=== PATIENT | male | born 1930 | race Caucasian/White ===

== ENCOUNTER 2016-05-21 07:07 | Inpatient (IN) | payer OTHER, BC ==
[2016-05-21 07:20] VITALS: BMI 30.2
[2016-05-21] MEDS ORDERED: ALBUTEROL SO4 2.5/IPRATROPIUM 0.5 INH SOL 3 ML VIAL.NEB. NEB ONE ×3 (08:20→09:24)
[2016-05-21] MEDS ORDERED: methylPREDNISolone NA SUCC 125 MG/2 ML VIAL ONE ×2 (08:20→09:24)
[2016-05-21] MEDS ORDERED: NITROGLYCERIN 2% OINTMENT - 1GM PACKET TD ONE (08:29)
--- NOTE | 2016-05-21 08:29 | PDOC ---
History of Present Illness <Mendy Clancy - Last Filed: 05/21/16 11:45> - History of Present Illness Initial Comments: 05/21/16 08:23 86-year-old male with a past medical history of COPD, atrial fibrillation, CAD, hypertension, hyperlipidemia, sick sinus syndrome, prostate cancer, nephrolithiasis, and a prior episode of enterococcal urosepsis and pyelonephritis Patient states that he did have the flu shot this year Patient is complaining of some URI symptoms, congestion, and cough since Friday He states the cough is productive of white sputum During the early a.m. hours he became progressively short of breath, and used his nebulizer He felt lightheaded this morning He felt some increasing wheezing this morning He denies any fevers or chills He states his sputum is white He is complaining of some intermittent chest discomfort, which he states is worse with cough, but sometimes present when he is not coughing He denies any neck jaw or arm radiation He denies any abdominal pain He denies any other complaints at this time <Mitali Martinez - Last Filed: 05/21/16 22:52> - General Chief Complaint: Shortness of Breath Stated Complaint: SOB, LIGHTHEADED Time Seen by Provider: 05/21/16 08:09 Past History <Mendy Clancy - Last Filed: 05/21/16 11:45> - Past Medical History Anemia: No Asthma: No Cancer: Yes (PROSTATE,RADIATION,SEEDS) Cardiac Disorders: Yes (a.fib) CVA: No COPD: Yes CHF: No Dementia: No Diabetes: No GI Disorders: Yes (diverticulosis) Disorders: Yes (NON FUNCTIONING LEFT KIDNEY) HTN: Yes Hypercholesterolemia: Yes (DIET CONTROLLED) Liver Disease: No Seizures: No Thyroid Disease: No Other medical history: gout - Surgical History Abdominal Surgery: Yes (HERNIA-R INGUINAL) Appendectomy: Yes () Cardiac Surgery: Yes (pacemaker-1999,REPLACED 2012) Cholecystectomy: No Lung Surgery: No Neurologic Surgery: No Orthopedic Surgery: Yes (TOTAL L KNEE REPLACEMENT-2001,TOTAL LEFT HIP REPLACEMENT-2003) - Immunization History Immunization Up to Date: Yes - Psycho/Social/Smoking Cessation Hx Anxiety: No Suicidal Ideation: No Smoking Status: Yes Smoking History: Former smoker Have you smoked in the past 12 months: No Number of Cigarettes Smoked Daily: 0 If you are a former smoker, when did you quit?: 20YRS AGO Cigars Per Day: 0 Information on smoking cessation initiated: No Hx Alcohol Use: No Drug/Substance Use Hx: No Substance Use Type: Alcohol Hx Substance Use Treatment: No <Memo Martinezee - Last Filed: 05/21/16 22:52> - Past Medical History Allergies/Adverse Reactions: Allergies Allergy/AdvReac Type Severity Reaction Status Date / Time azithromycin AdvReac Intermediate HEADACHE Verified 05/21/16 07:12 Home Medications: Ambulatory Orders Albuterol Sulfate [Proair Respiclick] 90 mcg IH QID PRN 05/21/16 Allopurinol [Zyloprim -] 100 mg PO DAILY 05/21/16 Ascorbic Acid [Vitamin C] 500 mg PO DAILY 05/21/16 Cholecalciferol (Vitamin D3) [Vitamin D3] 5,000 unit PO DAILY 05/21/16 Docusate Sodium [Colace -] 0 mg PO HS 05/21/16 Iron 325 mg PO DAILY 05/21/16 L.acidoph,Paracasei, B.lactis [Probiotic] 1 each PO DAILY 05/21/16 Losartan Potassium 50 mg PO BID 05/21/16 Methenamine Hippurate [Hiprex [Nf] -] 1 gm PO BID 05/21/16 Metoprolol Tartrate [Lopressor] 50 mg PO TID 05/21/16 Mometasone Furoate [Asmanex 110Mcg -] 1 inh IH DAILY 05/21/16 Pyridoxine HCl [Vitamin B6] 50 mg PO DAILY 05/21/16 Tamsulosin HCl [Flomax] 0.4 mg PO DAILY 05/21/16 Thiamine HCl [Vitamin B1] 100 mg PO DAILY 05/21/16 Triamcinolone Acetonide 80 gm TP PRN 05/21/16 Triamcinolone Acetonide [Nasacort] 10.8 ml NS DAILY 05/21/16 Ubidecarenone [Coq-10] 100 mg PO DAILY 05/21/16 Vitamin E 400 unit PO DAILY 05/21/16 Warfarin Sodium [Coumadin] 4.5 mg PO HS 05/21/16 Review of Systems - Review of Systems Able to Perform ROS?: Yes Comments:: 05/21/16 08:25 12 point review of systems is as per history of present illness and otherwise negative <Mitali Martinez - Last Filed: 05/21/16 22:52> *Physical Exam - Vital Signs Last Vital Signs Temp Pulse Resp BP Pulse Ox 97.8 F 87 20 130/80 98 05/21/16 07:12 05/21/16 07:12 05/21/16 07:12 05/21/16 07:12 05/21/16 07:12 <Guanaco Clancyistyn - Last Filed: 05/21/16 11:45> - Vital Signs Last Vital Signs Temp Pulse Resp BP Pulse Ox 97.8 F 87 20 130/80 98 05/21/16 07:12 05/21/16 07:12 05/21/16 07:12 05/21/16 07:12 05/21/16 07:12 - Physical Exam Comments: 05/21/16 08:25 Physical exam Last Vital Signs Temp Pulse Resp BP Pulse Ox 97.8 F 87 20 130/80 98 05/21/16 07:12 05/21/16 07:12 05/21/16 07:12 05/21/16 07:12 05/21/16 07:12 GENERAL: The patient is awake, alert, and having mild wheezing at rest HEAD: Normal with no signs of trauma. EYES: sclera anicteric, conjunctiva are normal. ENT:Moist mucous membranes. NECK: Normal range of motion, supple . LUNGS: There is a prolonged expiratory phase, with diffuse scattered end expiratory wheezes in all lung nickerson. HEART: Regular rate and rhythm, normal S1 and S2 without murmur, rub or gallop. ABDOMEN: Soft, nontender, normoactive bowel sounds. No guarding, no rebound. No masses appreciated. EXTREMITIES: Normal range of motion, bilateral trace pedal edema is noted NEUROLOGICAL: Cranial nerves II through XII grossly intact. Normal speech, normal gait. PSYCH: Normal mood, normal affect. SKIN: Warm, Dry, normal turgor, no rashes or lesions noted. <Mitali Martinez - Last Filed: 05/21/16 22:52> ED Treatment Course - LABORATORY CBC & Chemistry Diagram: 05/21/16 10:00 05/21/16 08:50 - RADIOLOGY Radiograph Interpretation: 05/21/16 08:48 RAD/CHEST X-RAY PORTABLE* Single view AP portable chest COPD and shortness of breath Comparison studies: June 24, 2015 Cardiomegaly with mild uncoiling aortic arch and no mediastinal widening No infiltrate, mass or effusion with no pneumothorax. Dual lead left axillary atrial and ventricular pacemaker in position Mild degree hyperaeration noted. IMPRESSION: No infiltrate or edema in the lungs-no acute changes noted. Reported By: Taco Escobar MD 05/21/16 0836 <Mendy Clancy - Last Filed: 05/21/16 11:45> - LABORATORY CBC & Chemistry Diagram: 05/21/16 10:00 05/21/16 08:50 - RADIOLOGY Radiology Studies Ordered: Category Date Time Status CHEST X-RAY PORTABLE* [RAD] Stat Radiology 05/21/16 08:19 Ordered <Mitali Martinez - Last Filed: 05/21/16 22:52> Medical Decision Making - Medical Decision Making 05/21/16 11:[address] Enrike Rivero at 11:30, awaiting call back. Dr. Enrike Rivero called back at 11:38. Patient's case was discussed. <Mendy Clancy - Last Filed: 05/21/16 11:45> - Medical Decision Making 05/21/16 08:27 86-year-old male with what initially started as URI symptoms, now has a cough and COPD exacerbation, as well as some chest discomfort Will start with 2 nebs [id number], and steroids, EKG Atrial fibrillation with a ventricular response rate of 86 Left axis deviation -47 Normal AV and IV conduction time Nonspecific ST-T waves When compared with the EKG of 06/21/15 Atrial fibrillation was present on the prior EKG Today's EKG is essentially unchanged from the prior EKG 05/21/16 09:41 Chest x-ray- No infiltrate or edema in the lungs, no acute changes noted Mild degree of hyperinflation 05/21/16 11:28 Laboratory Results - last 24 hr 05/21/16 05/21/16 08:50 10:00 WBC 8.1 RBC 3.92 L Hgb 11.5 L D Hct 34.2 L MCV 87.1 MCHC 33.6 RDW 15.7 Plt Count 133 L MPV 9.4 Sodium 141 Potassium 4.3 Chloride 107 Carbon Dioxide 23 Anion Gap 11 BUN 17 D Creatinine 1.8 H Creat Clearance w eGFR 36.04 Random Glucose 90 Calcium 8.2 L Magnesium 1.7 L Total Bilirubin 0.4 AST 9 L D ALT 14 Alkaline Phosphatase 94 Creatine Kinase 38 L Troponin I < 0.02 B-Natriuretic Peptide 3835.54 H Total Protein 6.4 Albumin 3.7 Most likely COPD exacerbation with bronchitis, and some degree of failure with BNP of close to 4000 05/21/16 11:[address] Mckenna-Will admit/place in observation Patient feeling a little better with nebs and steroids Impression-COPD exacerbation, CHF Will hold on antibiotics at this time since no elevated white count and no infiltrate on chest x-ray and sputum is white <Mitali Martinez - Last Filed: 05/21/16 22:52> *DC/Admit/Observation/Transfer <Mendy Clancy - Last Filed: 05/21/16 11:45> - Discharge Dispostion Admit: Yes <Mitali Martinez - Last Filed: 05/21/16 22:52> Diagnosis at time of Disposition: COPD exacerbation, CHF (congestive heart failure), A-fib - Referrals
[2016-05-21 10:13] LABS: ALBUMIN 3.7 g/dl (3.4-5.0); ALK PHOS 94 U/L (45-117); ANION GAP 11 (8-16); BILIRUBIN,TOTAL 0.4 mg/dL (0.2-1.0); CALCIUM 8.2 mg/dL (8.5-10.1); CO2 23 mmol/L (21-32); CREATININE 1.8 mg/dL (0.7-1.3); GLUCOSE,RANDOM 90 mg/dL (74-106); MAGNESIUM 1.7 mg/dL (1.8-2.4); SGOT/AST 9 U/L (15-37); SGPT/ALT 14 U/L (12-78); TOT PROT 6.4 g/dl (6.4-8.2)
[2016-05-21 10:15] LABS: TROPONIN I < 0.02 ng/ml (0.00-0.05)
[2016-05-21 10:27] LABS: MCH 29.3 pg (25.7-33.7); MCHC 33.6 g/dl (32.0-35.9); MEAN CELL VOLUME 87.1 fl (80-96); MEAN PLT VOLUME 9.4 fl (7.5-11.1); PLATELET COUNT 133 K/MM3 (134-434); RDW 15.7 % (11.9-15.9); WHITE BLOOD COUNT 8.1 K/mm3 (4.0-10.0)
[2016-05-21 11:17] LABS: INR 3.74 (0.82-1.09); PROTHROMBIN TIME (PATIENT) 42.3 SEC (9.98-11.88)
[2016-05-21] MEDS ORDERED: FUROSEMIDE 40 MG/4 ML INJECTABLE VIAL IVPUSH ONE (11:29)
[2016-05-21] MEDS ORDERED: FUROSEMIDE 40 MG/4 ML INJECTABLE VIAL ONE (11:55)
--- NOTE | 2016-05-21 13:25 | EKG ---
Test Reason : Blood Pressure : / mmHG Vent. Rate : 086 BPM Atrial Rate : 241 BPM P-R Int : 000 ms QRS Dur : 068 ms QT Int : 344 ms P-R-T Axes : 000 -47 -18 degrees QTc Int : 411 ms ATRIAL FIBRILLATION LEFT AXIS DEVIATION LOW VOLTAGE QRS ABNORMAL ECG WHEN COMPARED WITH ECG OF 21-JUN-2015 15:12, NO SIGNIFICANT CHANGE WAS FOUND Confirmed by OTTO SHIELDS MD ([id number]) on 05/21/2016 1:25:01 PM Referred By: Confirmed By:OTTO SHIELDS MD
--- NOTE | 2016-05-21 17:40 | HP ---
Admitting History and Physical - Primary Care Physician PCP: Enrike Rivero - Admission Chief Complaint: cough SOB History of Present Illness: 86-year-old male with a past medical history of COPD, atrial fibrillation, CAD, hypertension, hyperlipidemia, sick sinus syndrome, prostate cancer, nephrolithiasis, and a prior episode of enterococcal urosepsis and pyelonephritis Patient states that he did have the flu shot this year Patient is complaining of some URI symptoms, congestion, and cough since Friday He states the cough is productive of white sputum During the early a.m. hours he became progressively short of breath, and used his nebulizer but not better; then developed some chest tightness and came to ER ; received nebs, IV steroids and IV lasix and felt better. He denies any fevers or chills He is complaining of some intermittent chest discomfort, which he states is worse with cough, but sometimes present when he is not coughing He denies any neck jaw or arm radiation, abdominal pain or any other complaints at this time History Source: Patient, Medical Record Limitations to Obtaining History: No Limitations - Past Medical History Cardiovascular: Yes: AFIB, CAD, HTN, Hyperlipdemia, Other (SSS with PPM) Renal/: Yes: BPH, Cancer (prostate), Renal Calculi, Other (urinary retention) Heme/Onc: Yes: Cancer (prostate) - Past Surgical History Past Surgical History: Yes: Appendectomy, Hernia Repair, Joint Replacement - Smoking History Smoking history: Former smoker Have you smoked in the past 12 months: No Aproximately how many cigarettes per day: 0 If you are a former smoker, when did you quit?: 20YRS AGO - Alcohol/Substance Use Hx Alcohol Use: No History of Substance Use: reports: None - Social History Usual Living Arrangement: Yes: Alone ADL: Independent History of Recent Travel: No Home Medications - Allergies Allergies/Adverse Reactions: Allergies Allergy/AdvReac Type Severity Reaction Status Date / Time azithromycin AdvReac Intermediate HEADACHE Verified 05/21/16 07:12 - Home Medications Home Medications: Ambulatory Orders Albuterol Sulfate [Proair Respiclick] 90 mcg IH QID PRN 05/21/16 Allopurinol [Zyloprim -] 100 mg PO DAILY 05/21/16 Ascorbic Acid [Vitamin C] 500 mg PO DAILY 05/21/16 Cholecalciferol (Vitamin D3) [Vitamin D3] 5,000 unit PO DAILY 05/21/16 Docusate Sodium [Colace -] 0 mg PO HS 05/21/16 Iron 325 mg PO DAILY 05/21/16 L.acidoph,Paracasei, B.lactis [Probiotic] 1 each PO DAILY 05/21/16 Losartan Potassium 50 mg PO BID 05/21/16 Methenamine Hippurate [Hiprex [Nf] -] 1 gm PO BID 05/21/16 Metoprolol Tartrate [Lopressor] 50 mg PO TID 05/21/16 Mometasone Furoate [Asmanex 110Mcg -] 1 inh IH DAILY 05/21/16 Pyridoxine HCl [Vitamin B6] 50 mg PO DAILY 05/21/16 Tamsulosin HCl [Flomax] 0.4 mg PO DAILY 05/21/16 Thiamine HCl [Vitamin B1] 100 mg PO DAILY 05/21/16 Triamcinolone Acetonide 80 gm TP PRN 05/21/16 Triamcinolone Acetonide [Nasacort] 10.8 ml NS DAILY 05/21/16 Ubidecarenone [Coq-10] 100 mg PO DAILY 05/21/16 Vitamin E 400 unit PO DAILY 05/21/16 Warfarin Sodium [Coumadin] 4.5 mg PO HS 05/21/16 Family Disease History - Family Disease History Family History: Unremarkable Review of Systems - Review of Systems Constitutional: denies: Chills, Fever, Lethargy Eyes: denies: Blurred Vision, Double Vision HENT: denies: Ear Pain, Nasal Congestion Neck: denies: Stiffness, Tenderness Cardiovascular: reports: Shortness of Breath. denies: Chest Pain Respiratory: reports: Cough, Exercise Intolerance, Orthopnea, PND, SOB, SOB on Exertion, Wheezing. denies: Hemoptysis Gastrointestinal: denies: Abdominal Pain, Bloating, Constipation, Diarrhea, Dysphagia, Rectal Bleeding, Vomiting, Vomiting Blood Genitourinary: reports: Other (self cath q 3days). denies: Burning, Dysuria, Flank Pain, Hematuria Musculoskeletal: denies: Back Pain, Extremity Pain, Joint Pain, Joint Swelling, Muscle Weakness Integumentary: denies: Bruising, Erythema, Rash Neurological: reports: Unsteady Gait, Weakness (general). denies: Change in LOC , Change in Speech, Confusion, Dizziness, Headache, Seizure, Syncope, Tremors Hematology/Lymphatic: denies: Easily Bruised, Excessive Bleeding, Swollen Glands Psychiatric: denies: Altered Sleep Pattern, Anxiety, Depression, Panic, Paranoia , Suicidal Physical Examination Vital Signs: Vital Signs Temperature 97.9 F 05/21/16 13:30 Pulse Rate 82 05/21/16 13:30 Respiratory Rate 18 05/21/16 13:30 Blood Pressure 123/92 05/21/16 13:30 O2 Sat by Pulse Oximetry (%) 98 05/21/16 13:30 Constitutional: Yes: No Distress, Calm Eyes: Yes: Conjunctiva Clear HENT: Yes: Atraumatic Neck: Yes: Supple Cardiovascular: No: Regular Rate and Rhythm Respiratory: Yes: Rales (bilateral), Wheezes (bilateral expiratory) Gastrointestinal: Yes: Soft. No: Distention, Tenderness Renal/: No: CVA Tenderness - Left, CVA Tenderness - Right, Hematuria Musculoskeletal: No: Joint Stiffness, Joint Swelling Extremities: No: Calf Tenderness, Cold, Cool, Cyanosis Edema: No Peripheral Pulses WNL: Yes Integumentary: No: Bruising, Erythema, Venous Stasis Changes Neurological: Yes: WNL, Alert, Oriented ...Motor Strength: WNL Psychiatric: Yes: WNL, Alert, Oriented. No: Agitated, Suicidal Ideation Imaging - Results Chest X-ray: Report Reviewed Other: Report Reviewed Assessment/Plan 86-year-old male with a past medical history of COPD, atrial fibrillation, CAD, hypertension, hyperlipidemia, sick sinus syndrome, prostate cancer, nephrolithiasis, and a prior episode of enterococcal urosepsis and pyelonephritis Patient is complaining of some URI symptoms, congestion, and cough with white sputum since Friday During the early a.m. hours he became progressively short of breath, and used his nebulizer then came to ER CXR negative; INR > 3, high BNP admitted with URI acute bronchitis and acute on chronic COPD exac andf CHF exac admit as INPT IV steroids, nebs, IV ATB, IV lasix cardio and pulm evals f/u labs coumadin per INR f/u CE will check when last echo was done falls decubs DVT aspiration PFX prognosis guarded d/w pt and staff t time 75 min
[2016-05-21] MEDS ORDERED: ACETAMINOPHEN 325 MG TABLET (FP) PO PRN (19:35)
[2016-05-21] MEDS ORDERED: ALBUTEROL SO4 6.7 GM HFA INHALER IH PRN (20:53)
[2016-05-21] MEDS ORDERED: TRIAMCINOLONE ACET 0.1% CREAM 15 GM TUBE TP SCH (21:00)
[2016-05-21] MEDS: methylPREDNISolone NA SUCC 40 MG/1 ML VIAL IVPB SCH (21:51)
[2016-05-21] MEDS: MAGNESIUM OXIDE 400 MG TABLET (FP) PO SCH (21:51)
[2016-05-21] MEDS: METOPROLOL TARTRATE 50 MG TABLET (FP) PO SCH (21:51)
[2016-05-21] MEDS: LOSARTAN POTASSIUM 50 MG TABLET (FP) PO SCH (21:51)
[2016-05-21] MEDS: DOCUSATE SODIUM 100 MG CAPSULE (FP) PO SCH (21:51)
[2016-05-21] MEDS ORDERED: PATIENT'S OWN MEDICATION (NON-FORMULARY) (Methenamine Hippurate 1 GM) PO SCH (22:00)
[2016-05-21] MEDS ORDERED: PATIENT'S OWN MEDICATION (NON-FORMULARY) (Warfarin Sodium [Coumadin] 4 MG) PO SCH (22:00)
[2016-05-22] MEDS: methylPREDNISolone NA SUCC 40 MG/1 ML VIAL IVPB SCH ×3 (01:49→18:02)
[2016-05-22] MEDS ORDERED: PT OWN MED DRAWER 7, Y5N ONE (05:31)
[2016-05-22] MEDS: FUROSEMIDE 40 MG/4 ML INJECTABLE VIAL IVPUSH SCH ×2 (06:03→14:20)
[2016-05-22] MEDS: METOPROLOL TARTRATE 50 MG TABLET (FP) PO SCH ×3 (06:03→21:21)
[2016-05-22 07:28] LABS: BASOPHIL 0.3 % (0-2.0); EOSINOPHIL 0.1 % (0-4.5); MCH 28.9 pg (25.7-33.7); MCHC 33.5 g/dl (32.0-35.9); MEAN CELL VOLUME 86.2 fl (80-96); MEAN PLT VOLUME 8.8 fl (7.5-11.1); NEUTROPHILS 83.5 % (42.8-82.8); PLATELET COUNT 144 K/MM3 (134-434); RDW 15.3 % (11.9-15.9); WHITE BLOOD COUNT 9.6 K/mm3 (4.0-10.0)
[2016-05-22 08:23] LABS: INR 2.8 (0.82-1.09); PROTHROMBIN TIME (PATIENT) 31.4 SEC (9.98-11.88)
[2016-05-22 08:25] LABS: MAGNESIUM 1.8 mg/dL (1.8-2.4); TROPONIN I < 0.02 ng/ml (0.00-0.05)
[2016-05-22 08:37] LABS: ALBUMIN 3.7 g/dl (3.4-5.0); BILIRUBIN,TOTAL 0.3 mg/dL (0.2-1.0); CALCIUM 8.7 mg/dL (8.5-10.1); CREATININE 1.8 mg/dL (0.7-1.3); THYROID STIMULATING HORMONE 1.3 uIU/ml (0.358-3.74); TOT PROT 6.9 g/dl (6.4-8.2)
[2016-05-22] MEDS: MAGNESIUM OXIDE 400 MG TABLET (FP) PO SCH ×2 (09:50→21:21)
[2016-05-22] MEDS: CEFTRIAXONE 50 ML IVPB SCH (09:50)
[2016-05-22] MEDS: TAMSULOSIN HCL 0.4 MG CAP.ER.24H (FP) PO SCH (09:50)
[2016-05-22] MEDS: THIAMINE HCL 100 MG TABLET (FP) PO SCH (09:50)
[2016-05-22] MEDS: LOSARTAN POTASSIUM 50 MG TABLET (FP) PO SCH ×2 (09:50→21:21)
[2016-05-22] MEDS: ASCORBIC ACID 500 MG TABLET (FP) PO SCH (09:51)
[2016-05-22] MEDS: ALLOPURINOL 100 MG TABLET (FP) PO SCH (09:51)
[2016-05-22] MEDS: CHOLECALCIFEROL (VITAMIN D3) 1,000 UNIT TABLET (FP) PO SCH (09:51)
[2016-05-22] MEDS: PYRIDOXINE HCL (B-6) 50 MG TABLET (FP) PO SCH (09:51)
[2016-05-22] MEDS: MOMETASONE FUROATE 110 MCG/IH INHALER IH SCH (09:52)
[2016-05-22] MEDS ORDERED: PATIENT'S OWN MEDICATION (NON-FORMULARY) (Triamcinolone Acetonide [Nasacort] 10.8 ML) NS SCH (10:00)
--- NOTE | 2016-05-22 10:33 | CON.PULM ---
Consult Consult Specialty:: PULMONARY Referred by:: JUANA Reason for Consultation:: SOB/WHEEZE - History of Present Illness Chief Complaint: SOB/WHEEZE History of Present Illness: 86-year-old male with a past medical history of COPD, atrial fibrillation, CAD, hypertension, hyperlipidemia, sick sinus syndrome, prostate cancer, nephrolithiasis, and a prior episode of enterococcal urosepsis and pyelonephritis Patient states that he did have the flu shot this year. Patient is complaining of some URI symptoms, congestion, and cough since Friday He states the cough is productive of white sputum During the early a.m. hours he became progressively short of breath, and used his nebulizer He felt lightheaded this morning He felt some increasing wheezing this morning He denies any fevers or chills He states his sputum is white He is complaining of some intermittent chest discomfort, which he states is worse with cough, but sometimes present when he is not coughing He denies any neck jaw or arm radiation He denies any abdominal pain He denies any other complaints at this time. - Past Medical History Cardio/Vascular: Yes: AFIB, CAD, HTN, Hyperlipdemia, Other (SSS with PPM) Renal/: Yes: BPH, Cancer (prostate), Renal Calculi, Other (urinary retention) - Past Surgical History Past Surgical History: Yes: Appendectomy, Hernia Repair, Joint Replacement - Alcohol/Substance Use Hx Alcohol Use: No History of Substance Use: reports: None - Smoking History Smoking history: Former smoker Have you smoked in the past 12 months: No Aproximately how many cigarettes per day: 0 If you are a former smoker, when did you quit?: 20YRS AGO - Social History ADL: Independent History of Recent Travel: No Home Medications - Allergies Allergies/Adverse Reactions: Allergies Allergy/AdvReac Type Severity Reaction Status Date / Time azithromycin AdvReac Intermediate HEADACHE Verified 05/21/16 07:12 - Home Medications Home Medications: Ambulatory Orders Albuterol Sulfate [Proair Respiclick] 90 mcg IH QID PRN 05/21/16 Allopurinol [Zyloprim -] 100 mg PO DAILY 05/21/16 Ascorbic Acid [Vitamin C] 500 mg PO DAILY 05/21/16 Cholecalciferol (Vitamin D3) [Vitamin D3] 5,000 unit PO DAILY 05/21/16 Docusate Sodium [Colace -] 0 mg PO HS 05/21/16 Iron 325 mg PO DAILY 05/21/16 L.acidoph,Paracasei, B.lactis [Probiotic] 1 each PO DAILY 05/21/16 Losartan Potassium 50 mg PO BID 05/21/16 Methenamine Hippurate [Hiprex [Nf] -] 1 gm PO BID 05/21/16 Metoprolol Tartrate [Lopressor] 50 mg PO TID 05/21/16 Mometasone Furoate [Asmanex 110Mcg -] 1 inh IH DAILY 05/21/16 Pyridoxine HCl [Vitamin B6] 50 mg PO DAILY 05/21/16 Tamsulosin HCl [Flomax] 0.4 mg PO DAILY 05/21/16 Thiamine HCl [Vitamin B1] 100 mg PO DAILY 05/21/16 Triamcinolone Acetonide 80 gm TP PRN 05/21/16 Triamcinolone Acetonide [Nasacort] 10.8 ml NS DAILY 05/21/16 Ubidecarenone [Coq-10] 100 mg PO DAILY 05/21/16 Vitamin E 400 unit PO DAILY 05/21/16 Warfarin Sodium [Coumadin] 4.5 mg PO HS 05/21/16 Physical Exam Vital Sings: Vital Signs Temperature 97.4 F L 05/22/16 05:56 Pulse Rate 86 05/22/16 05:56 Respiratory Rate 18 05/22/16 06:26 Blood Pressure 134/98 05/22/16 05:56 O2 Sat by Pulse Oximetry (%) 98 05/22/16 06:26 Labs: CBC, BMP 05/22/16 06:00 05/22/16 06:35
--- NOTE | 2016-05-22 10:39 | CON.PULM ---
Consult Consult Specialty:: PULMONARY Referred by:: JUANA Reason for Consultation:: SOB - History of Present Illness Chief Complaint: SOB History of Present Illness: 86-year-old male with a past medical history of COPD, atrial fibrillation, CAD, hypertension, hyperlipidemia, sick sinus syndrome, prostate cancer, nephrolithiasis, and a prior episode of enterococcal urosepsis and pyelonephritis Patient states that he did have the flu shot this year. Patient is complaining of some URI symptoms, congestion, and cough since Friday He states the cough is productive of white sputum During the early a.m. hours he became progressively short of breath, and used his nebulizer He felt lightheaded this morning He felt some increasing wheezing this morning He denies any fevers or chills He states his sputum is white He is complaining of some intermittent chest discomfort, which he states is worse with cough, but sometimes present when he is not coughing He denies any neck jaw or arm radiation He denies any abdominal pain He denies any other complaints at this time. - History Source History Provided By: Patient, Medical Record Limitations to Obtaining History: No Limitations - Past Medical History [employer]: No: CVA Cardio/Vascular: Yes: AFIB, CAD, HTN, Hyperlipdemia, Other (SSS with PPM) Renal/: Yes: BPH, Cancer (prostate), Renal Calculi, Other (urinary retention) - Past Surgical History Past Surgical History: Yes: Appendectomy, Hernia Repair, Joint Replacement - Alcohol/Substance Use Hx Alcohol Use: No History of Substance Use: reports: None - Smoking History Smoking history: Former smoker Have you smoked in the past 12 months: No Aproximately how many cigarettes per day: 0 If you are a former smoker, when did you quit?: 20YRS AGO - Social History ADL: Independent History of Recent Travel: No Home Medications - Allergies Allergies/Adverse Reactions: Allergies Allergy/AdvReac Type Severity Reaction Status Date / Time azithromycin AdvReac Intermediate HEADACHE Verified 05/21/16 07:12 - Home Medications Home Medications: Ambulatory Orders Albuterol Sulfate [Proair Respiclick] 90 mcg IH QID PRN 05/21/16 Allopurinol [Zyloprim -] 100 mg PO DAILY 05/21/16 Ascorbic Acid [Vitamin C] 500 mg PO DAILY 05/21/16 Cholecalciferol (Vitamin D3) [Vitamin D3] 5,000 unit PO DAILY 05/21/16 Docusate Sodium [Colace -] 0 mg PO HS 05/21/16 Iron 325 mg PO DAILY 05/21/16 L.acidoph,Paracasei, B.lactis [Probiotic] 1 each PO DAILY 05/21/16 Losartan Potassium 50 mg PO BID 05/21/16 Methenamine Hippurate [Hiprex [Nf] -] 1 gm PO BID 05/21/16 Metoprolol Tartrate [Lopressor] 50 mg PO TID 05/21/16 Mometasone Furoate [Asmanex 110Mcg -] 1 inh IH DAILY 05/21/16 Pyridoxine HCl [Vitamin B6] 50 mg PO DAILY 05/21/16 Tamsulosin HCl [Flomax] 0.4 mg PO DAILY 05/21/16 Thiamine HCl [Vitamin B1] 100 mg PO DAILY 05/21/16 Triamcinolone Acetonide 80 gm TP PRN 05/21/16 Triamcinolone Acetonide [Nasacort] 10.8 ml NS DAILY 05/21/16 Ubidecarenone [Coq-10] 100 mg PO DAILY 05/21/16 Vitamin E 400 unit PO DAILY 05/21/16 Warfarin Sodium [Coumadin] 4.5 mg PO HS 05/21/16 Family Disease History - Family Disease History Family History: Unremarkable Review of Systems - Review of Systems Cardiovascular: denies: Chest Pain Respiratory: reports: Cough, Exercise Intolerance, Orthopnea, SOB on Exertion, Wheezing. denies: Hemoptysis Gastrointestinal: reports: No Symptoms Genitourinary: reports: No Symptoms Physical Exam Vital Sings: Vital Signs Temperature 97.4 F L 05/22/16 05:56 Pulse Rate 86 05/22/16 05:56 Respiratory Rate 18 05/22/16 06:26 Blood Pressure 134/98 05/22/16 05:56 O2 Sat by Pulse Oximetry (%) 98 05/22/16 06:26 Constitutional: Yes: Calm Eyes: Yes: EOM Intact HENT: Yes: Normocephalic Neck: Yes: Trachea Midline Cardiovascular: Yes: S1, S2 Respiratory: Yes: CTA Bilaterally Gastrointestinal: Yes: Normal Bowel Sounds, Abdomen, Obese Edema: Yes Edema: LLE: Trace, RLE: Trace Neurological: Yes: Alert Labs: CBC, BMP 05/22/16 06:00 05/22/16 06:35 REST REVIEWED Imaging - Results Chest X-ray: Image Reviewed EKG: Report Reviewed Problem List - Problems (1) A-fib Code(s): I48.91 - UNSPECIFIED ATRIAL FIBRILLATION Qualifiers: (2) CHF (congestive heart failure) Code(s): I50.9 - HEART FAILURE, UNSPECIFIED (3) COPD exacerbation Code(s): J44.1 - CHRONIC OBSTRUCTIVE PULMONARY DISEASE W (ACUTE) EXACERBATION (4) Chronic kidney disease Code(s): N18.9 - CHRONIC KIDNEY DISEASE, UNSPECIFIED Qualifiers: Chronic kidney disease stage: stage 2 (mild) Qualified Code(s): N18.2 - Chronic kidney disease, stage 2 (mild) (5) Diastolic CHF, chronic Code(s): I50.32 - CHRONIC DIASTOLIC (CONGESTIVE) HEART FAILURE Assessment/Plan WOULD FAVOR A/E CHF OVER COPD MULTIPLE MEDICAL PROBLEMS LISTED AGREE WITH O2 SUPPLEMENTATION BRONCHODILATORS DE-ESCALATE STEROIDS CONTINUE DIURETICS/ANTICOAGULATION/ARB/DAILY WEIGHTS WILL FOLLOW Josse GARAY MD
--- NOTE | 2016-05-22 11:16 | PN ---
Progress Note, Physician Chief Complaint: OOB to chair less SOB less cough - Current Medication List Current Medications: Active Medications Acetaminophen (Tylenol -) 650 mg PO Q6H PRN PRN Reason: PAIN Allopurinol (Zyloprim -) 100 mg PO DAILY [facility] Last Admin: 05/22/16 09:51 Dose: 100 mg Ascorbic Acid (Vitamin C -) 500 mg PO DAILY [facility] Last Admin: 05/22/16 09:51 Dose: 500 mg Cholecalciferol (Vitamin D3 -) 5,000 unit PO DAILY [facility] Last Admin: 05/22/16 09:51 Dose: 5,000 unit Docusate Sodium (Colace -) 100 mg PO HS [facility] Last Admin: 05/21/16 21:51 Dose: 100 mg Furosemide (Lasix Injection -) 40 mg IVPUSH BID@0600,1400 [facility] Last Admin: 05/22/16 06:03 Dose: 40 mg Ceftriaxone Sodium (Rocephin 1gm Ivpb (Pre-Docked)) 50 mls @ 100 mls/hr IVPB DAILY [facility] Last Admin: 05/22/16 09:50 Dose: 100 mls/hr Losartan Potassium (Cozaar -) 50 mg PO BID [facility] Last Admin: 05/22/16 09:50 Dose: 50 mg Magnesium Oxide (Mag-Ox -) 400 mg PO BID [facility] Last Admin: 05/22/16 09:50 Dose: 400 mg Methylprednisolone Sodium Succinate (Solu-Medrol -) 40 mg IVPB Q8H-IV [facility] Last Admin: 05/22/16 09:51 Dose: 40 mg Metoprolol Tartrate (Lopressor -) 50 mg PO TID [facility] Last Admin: 05/22/16 06:03 Dose: 50 mg Mometasone Furoate (Asmanex 110mcg -) 1 puff IH DAILY [facility] Last Admin: 05/22/16 09:52 Dose: 1 puff Non-Formulary Medication (Albuterol Sulfate [Proair Respiclick]) 90 mcg IH QID PRN PRN Reason: SHORTNESS OF BREATH Non-Formulary Medication (L.Acidoph,Paracasei, B.Lactis [Probiotic]) 1 each PO DAILY [facility] Non-Formulary Medication (Methenamine Hippurate) 1 gm PO BID [facility] Non-Formulary Medication (Triamcinolone Acetonide [Nasacort]) 10.8 ml NS DAILY [facility] Pyridoxine HCl (Vitamin B6 -) 50 mg PO DAILY [facility] Last Admin: 05/22/16 09:51 Dose: 50 mg Tamsulosin HCl (Flomax -) 0.4 mg PO DAILY@0830 [facility] Last Admin: 05/22/16 09:50 Dose: 0.4 mg Thiamine HCl (Vitamin B1 -) 100 mg PO DAILY [facility] Last Admin: 05/22/16 09:50 Dose: 100 mg Triamcinolone Acetonide (Aristocort 0.1% Cream -) 0 applic TP PRN [facility] Warfarin Sodium (Coumadin -) 4 mg PO DAILY@1800 [facility] - Objective Vital Signs: Vital Signs Temperature 97.4 F L 05/22/16 05:56 Pulse Rate 86 05/22/16 05:56 Respiratory Rate 18 05/22/16 06:26 Blood Pressure 134/98 05/22/16 05:56 O2 Sat by Pulse Oximetry (%) 98 05/22/16 06:26 Constitutional: Yes: No Distress, Calm Eyes: Yes: Conjunctiva Clear HENT: Yes: Atraumatic Neck: Yes: Supple Cardiovascular: No: Regular Rate and Rhythm Respiratory: Yes: Diminished, Wheezes (less) Gastrointestinal: Yes: Soft. No: Distention, Tenderness Genitourinary: No: CVA Tenderness - Left, CVA Tenderness - Right Musculoskeletal: No: Joint Stiffness, Joint Swelling Extremities: No: Cold, Cool Edema: No Integumentary: Yes: Venous Stasis Changes. No: Rash Neurological: Yes: WNL, Alert, Oriented ...Motor Strength: WNL Psychiatric: Yes: WNL, Alert, Oriented. No: Agitated, Suicidal Ideation Labs: CBC, BMP 05/22/16 06:00 05/22/16 06:35 INR, PTT INR 2.80 (0.82-1.09) H 05/22/16 06:35 - ....Imaging Other: Report Reviewed Assessment/Plan 86-year-old male with a past medical history of COPD, atrial fibrillation, CAD, hypertension, hyperlipidemia, sick sinus syndrome, prostate cancer, nephrolithiasis, and a prior episode of enterococcal urosepsis and pyelonephritis admitted with acute URI acute bronchitis and acute on chronic COPD exac andf CHF exac admit as INPT IV steroids, nebs, IV ATB, IV lasix cardio and pulm evals f/u labs coumadin per INR f/u CE will check when last echo was done falls decubs DVT aspiration PFX prognosis guarded d/w pt and staff t time 35 min
[2016-05-22] MEDS: WARFARIN NA 2 MG TABLET (UD) PO SCH (21:21)
[2016-05-22] MEDS: DOCUSATE SODIUM 100 MG CAPSULE (FP) PO SCH (21:21)
[2016-05-23] MEDS: methylPREDNISolone NA SUCC 40 MG/1 ML VIAL IVPB SCH ×3 (01:27→21:53)
[2016-05-23] MEDS: FUROSEMIDE 40 MG/4 ML INJECTABLE VIAL IVPUSH SCH (05:51)
[2016-05-23] MEDS: METOPROLOL TARTRATE 50 MG TABLET (FP) PO SCH ×3 (05:51→21:53)
[2016-05-23 08:25] LABS: INR 2.03 (0.82-1.09); PROTHROMBIN TIME (PATIENT) 22.6 SEC (9.98-11.88)
[2016-05-23 08:30] LABS: CALCIUM 9.6 mg/dL (8.5-10.1)
[2016-05-23] MEDS ORDERED: PT OWN MED DRAWER 7, Y5N ONE (09:19)
[2016-05-23] MEDS: MOMETASONE FUROATE 110 MCG/IH INHALER IH SCH (09:33)
[2016-05-23] MEDS: CEFTRIAXONE 50 ML IVPB SCH (09:33)
[2016-05-23] MEDS: TAMSULOSIN HCL 0.4 MG CAP.ER.24H (FP) PO SCH (09:33)
[2016-05-23] MEDS: PYRIDOXINE HCL (B-6) 50 MG TABLET (FP) PO SCH (09:35)
[2016-05-23] MEDS: LOSARTAN POTASSIUM 50 MG TABLET (FP) PO SCH ×2 (09:36→21:53)
[2016-05-23] MEDS: CHOLECALCIFEROL (VITAMIN D3) 1,000 UNIT TABLET (FP) PO SCH (09:36)
[2016-05-23] MEDS: ALLOPURINOL 100 MG TABLET (FP) PO SCH (09:36)
[2016-05-23] MEDS: MAGNESIUM OXIDE 400 MG TABLET (FP) PO SCH ×2 (09:37→21:53)
[2016-05-23] MEDS: ASCORBIC ACID 500 MG TABLET (FP) PO SCH (09:37)
[2016-05-23] MEDS: THIAMINE HCL 100 MG TABLET (FP) PO SCH (09:37)
--- NOTE | 2016-05-23 11:25 | PN ---
Progress Note (short form) - Note Progress Note: PULMONARY Breathing improving. Mild nonproductive cough and says wheezing has resolved. Leg swelling decreasing with lasix. Last Vital Signs Temp Pulse Resp BP Pulse Ox 97.3 F L 86 18 137/81 95 05/23/16 06:00 05/23/16 06:00 05/23/16 06:00 05/23/16 06:00 05/22/16 18:09 Gen: NAD in chair Heart: RRR Lung: scattered rhonchi Abd: soft, nontender Ext: trace distal edema CBC, BMP 05/22/16 06:00 05/23/16 06:50 Active Medications Acetaminophen (Tylenol -) 650 mg PO Q6H PRN PRN Reason: PAIN Allopurinol (Zyloprim -) 100 mg PO DAILY [facility] Last Admin: 05/23/16 09:36 Dose: 100 mg Ascorbic Acid (Vitamin C -) 500 mg PO DAILY [facility] Last Admin: 05/23/16 09:37 Dose: 500 mg Cholecalciferol (Vitamin D3 -) 5,000 unit PO DAILY [facility] Last Admin: 05/23/16 09:36 Dose: 5,000 unit Docusate Sodium (Colace -) 100 mg PO HS [facility] Last Admin: 05/22/16 21:21 Dose: 100 mg Furosemide (Lasix Injection -) 40 mg IVPUSH BID@0600,1400 [facility] Last Admin: 05/23/16 05:51 Dose: 40 mg Ceftriaxone Sodium (Rocephin 1gm Ivpb (Pre-Docked)) 50 mls @ 100 mls/hr IVPB DAILY [facility] Last Admin: 05/23/16 09:33 Dose: 100 mls/hr Losartan Potassium (Cozaar -) 50 mg PO BID [facility] Last Admin: 05/23/16 09:36 Dose: 50 mg Magnesium Oxide (Mag-Ox -) 400 mg PO BID [facility] Last Admin: 05/23/16 09:37 Dose: 400 mg Methylprednisolone Sodium Succinate (Solu-Medrol -) 40 mg IVPB Q8H-IV [facility] Last Admin: 05/23/16 09:33 Dose: 40 mg Metoprolol Tartrate (Lopressor -) 50 mg PO TID [facility] Last Admin: 05/23/16 05:51 Dose: 50 mg Mometasone Furoate (Asmanex 110mcg -) 1 puff IH DAILY [facility] Last Admin: 05/23/16 09:33 Dose: 1 puff Non-Formulary Medication (Albuterol Sulfate [Proair Respiclick]) 90 mcg IH QID PRN PRN Reason: SHORTNESS OF BREATH Non-Formulary Medication (L.Acidoph,Paracasei, B.Lactis [Probiotic]) 1 each PO DAILY [facility] Non-Formulary Medication (Methenamine Hippurate) 1 gm PO BID [facility] Non-Formulary Medication (Triamcinolone Acetonide [Nasacort]) 10.8 ml NS DAILY [facility] Pyridoxine HCl (Vitamin B6 -) 50 mg PO DAILY [facility] Last Admin: 05/23/16 09:35 Dose: 50 mg Tamsulosin HCl (Flomax -) 0.4 mg PO DAILY@0830 [facility] Last Admin: 05/23/16 09:33 Dose: 0.4 mg Thiamine HCl (Vitamin B1 -) 100 mg PO DAILY [facility] Last Admin: 05/23/16 09:37 Dose: 100 mg Triamcinolone Acetonide (Aristocort 0.1% Cream -) 0 applic TP PRN [facility] Warfarin Sodium (Coumadin -) 4 mg PO DAILY@1800 [facility] Last Admin: 05/22/16 21:21 Dose: 4 mg A/P URI r/o COPD Exacerbation vs CHF Pulmonary HTN Atrial Fibrillation Acute on Chronic Renal Failure - will decrease medrol to q12h - inhaled bronchodilators - will decrease lasix to daily dosing as Cr rising - o2 as needed - obtain echocardiogram - rate controlled - continue anticoagulation
--- NOTE | 2016-05-23 12:39 | CON.CARD ---
Consult Consult Specialty:: Cardiology Referred by:: Dr. Rivero Reason for Consultation:: Cardiac evaluation - History of Present Illness Chief Complaint: Shortness of breath History of Present Illness: Patient is an 86 year old male well known to our service with underlying history of non-obstructive CAD, S/P PCI, angina pectoris, diastolic left ventricular dysfunction with class 1 NYHA classification heart failure, permanent atrial fibrillation on chronic anticoagulation [id number] of 5, sick sinus syndrome with PPM, HTN/HCVD, hypercholesterolemia, CKD, nephrolithiasis, recurrent UTI and degenerative lumbosacral disc disease. He presents with increase in shortness of breath, cough productive of whitish sputum. He feels better today. He denies chest pain or palpitations. He denies fever or chills. He denies paroxysmal nocturnal dyspnea or orthopnea. Denies headache or lightheadedness. Cardiology consultation was called for further evaluation. - History Source History Provided By: Patient, Medical Record Limitations to Obtaining History: No Limitations - Past Medical History Cardio/Vascular: Yes: AFIB, CAD, HTN, Hyperlipdemia, Other (SSS with PPM) Renal/: Yes: BPH, Cancer (prostate), Renal Calculi, Other (urinary retention) - Past Surgical History Past Surgical History: Yes: Appendectomy, Hernia Repair, Joint Replacement - Alcohol/Substance Use Hx Alcohol Use: No History of Substance Use: reports: None - Smoking History Smoking history: Former smoker Have you smoked in the past 12 months: No Aproximately how many cigarettes per day: 0 If you are a former smoker, when did you quit?: 20YRS AGO - Social History ADL: Independent History of Recent Travel: No Home Medications - Allergies Allergies/Adverse Reactions: Allergies Allergy/AdvReac Type Severity Reaction Status Date / Time azithromycin AdvReac Intermediate HEADACHE Verified 05/21/16 07:12 - Home Medications Home Medications: Ambulatory Orders Albuterol Sulfate [Proair Respiclick] 90 mcg IH QID PRN 05/21/16 Allopurinol [Zyloprim -] 100 mg PO DAILY 05/21/16 Ascorbic Acid [Vitamin C] 500 mg PO DAILY 05/21/16 Cholecalciferol (Vitamin D3) [Vitamin D3] 5,000 unit PO DAILY 05/21/16 Docusate Sodium [Colace -] 0 mg PO HS 05/21/16 Iron 325 mg PO DAILY 05/21/16 L.acidoph,Paracasei, B.lactis [Probiotic] 1 each PO DAILY 05/21/16 Losartan Potassium 50 mg PO BID 05/21/16 Methenamine Hippurate [Hiprex [Nf] -] 1 gm PO BID 05/21/16 Metoprolol Tartrate [Lopressor] 50 mg PO TID 05/21/16 Mometasone Furoate [Asmanex 110Mcg -] 1 inh IH DAILY 05/21/16 Pyridoxine HCl [Vitamin B6] 50 mg PO DAILY 05/21/16 Tamsulosin HCl [Flomax] 0.4 mg PO DAILY 05/21/16 Thiamine HCl [Vitamin B1] 100 mg PO DAILY 05/21/16 Triamcinolone Acetonide 80 gm TP PRN 05/21/16 Triamcinolone Acetonide [Nasacort] 10.8 ml NS DAILY 05/21/16 Ubidecarenone [Coq-10] 100 mg PO DAILY 05/21/16 Vitamin E 400 unit PO DAILY 05/21/16 Warfarin Sodium [Coumadin] 4.5 mg PO HS 05/21/16 Family Disease History - Family Disease History Other Family History: CAD Review of Systems - Review of Systems Constitutional: denies: Chills, Fever Cardiovascular: reports: Shortness of Breath. denies: Chest Pain, Palpitations Respiratory: reports: Cough, SOB, SOB on Exertion. denies: Hemoptysis, Orthopnea, PND Gastrointestinal: denies: Abdominal Pain, Constipation, Diarrhea, Melena, Nausea , Rectal Bleeding, Vomiting Genitourinary: denies: Dysuria Musculoskeletal: denies: Joint Pain Neurological: denies: Dizziness, Headache, Seizure, Syncope Vital Signs: Vital Signs Temperature 97.3 F L 05/23/16 06:00 Pulse Rate 81 05/23/16 10:00 Respiratory Rate 18 05/23/16 10:00 Blood Pressure 100/70 05/23/16 10:00 O2 Sat by Pulse Oximetry (%) 95 05/22/16 18:09 Neck: Yes: Supple Respiratory: Yes: Diminished Gastrointestinal: Yes: Normal Bowel Sounds, Soft. No: Tenderness Cardiovascular: Yes: Pulse Irregular JVD: No Carotid Bruit: No PMI: Non-Displaced Heart Sounds: Yes: S1, S2 Murmur: Yes: Systolic Murmur, Grade 1 Edema: No - Other Data Labs, Other Data: CBC, BMP 05/22/16 06:00 05/23/16 06:50 INR, PTT INR 2.03 (0.82-1.09) H 05/23/16 06:50 Atrial fibrillation, low voltage Echo: Pending Imaging - Results Chest X-ray: Report Reviewed (No infiltrates) EKG: Report Reviewed Problem List - Problems (1) A-fib Code(s): I48.91 - UNSPECIFIED ATRIAL FIBRILLATION Qualifiers: Atrial fibrillation type: permanent Qualified Code(s): I48.2 - Chronic atrial fibrillation (2) CHF (congestive heart failure) Code(s): I50.9 - HEART FAILURE, UNSPECIFIED Qualifiers: Congestive heart failure type: diastolic Congestive heart failure chronicity: acute on chronic Qualified Code(s): I50.33 - Acute on chronic diastolic (congestive) heart failure (3) Chronic kidney disease Code(s): N18.9 - CHRONIC KIDNEY DISEASE, UNSPECIFIED Qualifiers: Chronic kidney disease stage: stage 2 (mild) Qualified Code(s): N18.2 - Chronic kidney disease, stage 2 (mild) (4) History of pacemaker Code(s): Z95.0 - PRESENCE OF CARDIAC PACEMAKER (5) Hyperlipidemia Code(s): E78.5 - HYPERLIPIDEMIA, UNSPECIFIED Qualifiers: Hyperlipidemia type: pure hypercholesterolemia (6) Hypertension Code(s): I10 - ESSENTIAL (PRIMARY) HYPERTENSION Qualifiers: Hypertension type: essential hypertension Qualified Code(s): I10 - Essential (primary) hypertension (7) SSS (sick sinus syndrome) Code(s): I49.5 - SICK SINUS SYNDROME (8) Congestive heart failure with LV diastolic dysfunction, NYHA class 2 Code(s): I50.30 - UNSPECIFIED DIASTOLIC (CONGESTIVE) HEART FAILURE Assessment/Plan 1. Clinical presentation due to acute on chronic diastolic left ventricular dysfunction with class II NYHA classification heart failure 2. Non-obstructive CAD, angina pectoris 3. Permanent atrial fibrillation on A/C 4. Sick sinus syndrome s/p PPM 5. Hypertension/HCVD 6. Hypercholesterolemia 7. CKD 8. DJD 9. History of urinary retention and nephrolithiasis 10. History of anemia and thrombocytopenia - currently stable PLAN: 1. Continue Cozaar 2. Continue Lopressor 3. Continue Coumadin as per INR 2.0-3.0 4. Diuretics - IV Lasix and monitor renal function and electrolytes 5. Transthoracic echocardiography to assess LV and valvular function (ordered by Dr. Montalvo) Further plans are to follow Aleksey Marquez MD
[2016-05-23] MEDS: WARFARIN NA 2 MG TABLET (UD) PO SCH (17:31)
[2016-05-23] MEDS: DOCUSATE SODIUM 100 MG CAPSULE (FP) PO SCH (21:53)
--- NOTE | 2016-05-23 21:55 | PN ---
Progress Note, Physician History of Present Illness: Pt.'s cough decreased, wheezing resolved, no leg edema. Pt. w/o CP/ SOB/ palp./abd pain. - Current Medication List Current Medications: Active Medications Acetaminophen (Tylenol -) 650 mg PO Q6H PRN PRN Reason: PAIN Allopurinol (Zyloprim -) 100 mg PO DAILY [facility] Last Admin: 05/23/16 09:36 Dose: 100 mg Ascorbic Acid (Vitamin C -) 500 mg PO DAILY [facility] Last Admin: 05/23/16 09:37 Dose: 500 mg Cholecalciferol (Vitamin D3 -) 5,000 unit PO DAILY [facility] Last Admin: 05/23/16 09:36 Dose: 5,000 unit Docusate Sodium (Colace -) 100 mg PO HS [facility] Last Admin: 05/22/16 21:21 Dose: 100 mg Furosemide (Lasix Injection -) 40 mg IVPUSH DAILY [facility] Ceftriaxone Sodium (Rocephin 1gm Ivpb (Pre-Docked)) 50 mls @ 100 mls/hr IVPB DAILY [facility] Last Admin: 05/23/16 09:33 Dose: 100 mls/hr Losartan Potassium (Cozaar -) 50 mg PO BID [facility] Last Admin: 05/23/16 09:36 Dose: 50 mg Magnesium Oxide (Mag-Ox -) 400 mg PO BID [facility] Last Admin: 05/23/16 09:37 Dose: 400 mg Methylprednisolone Sodium Succinate (Solu-Medrol -) 40 mg IVPB BID [facility] Metoprolol Tartrate (Lopressor -) 50 mg PO TID [facility] Last Admin: 05/23/16 14:34 Dose: 50 mg Mometasone Furoate (Asmanex 110mcg -) 1 puff IH DAILY [facility] Last Admin: 05/23/16 09:33 Dose: 1 puff Non-Formulary Medication (Albuterol Sulfate [Proair Respiclick]) 90 mcg IH QID PRN PRN Reason: SHORTNESS OF BREATH Non-Formulary Medication (L.Acidoph,Paracasei, B.Lactis [Probiotic]) 1 each PO DAILY [facility] Non-Formulary Medication (Methenamine Hippurate) 1 gm PO BID [facility] Non-Formulary Medication (Triamcinolone Acetonide [Nasacort]) 10.8 ml NS DAILY [facility] Pyridoxine HCl (Vitamin B6 -) 50 mg PO DAILY [facility] Last Admin: 05/23/16 09:35 Dose: 50 mg Tamsulosin HCl (Flomax -) 0.4 mg PO DAILY@0830 [facility] Last Admin: 05/23/16 09:33 Dose: 0.4 mg Thiamine HCl (Vitamin B1 -) 100 mg PO DAILY [facility] Last Admin: 05/23/16 09:37 Dose: 100 mg Triamcinolone Acetonide (Aristocort 0.1% Cream -) 0 applic TP PRN [facility] Warfarin Sodium (Coumadin -) 4 mg PO DAILY@1800 [facility] Last Admin: 05/23/16 17:31 Dose: 4 mg - Objective Vital Signs: Vital Signs Temperature 97.3 F L 05/23/16 17:51 Pulse Rate 73 05/23/16 17:51 Respiratory Rate 18 05/23/16 17:51 Blood Pressure 103/73 05/23/16 17:51 O2 Sat by Pulse Oximetry (%) 95 05/22/16 18:09 Constitutional: Yes: No Distress, Calm Cardiovascular: Yes: Pulse Irregular, S1, S2 Respiratory: Yes: Regular, CTA Bilaterally. No: Rales Gastrointestinal: Yes: Normal Bowel Sounds, Soft. No: Tenderness Edema: No Neurological: Yes: Alert, Oriented Labs: CBC, BMP 05/22/16 06:00 05/23/16 06:50 INR, PTT INR 2.03 (0.82-1.09) H 05/23/16 06:50 Problem List - Problems (1) COPD exacerbation Assessment/Plan: Pt. on IV steroids, responding well; to consider tapering the dose. Pulmonary consult appreciated Code(s): J44.1 - CHRONIC OBSTRUCTIVE PULMONARY DISEASE W (ACUTE) EXACERBATION (2) CHF (congestive heart failure) Assessment/Plan: cont meds Cardio consult Code(s): I50.9 - HEART FAILURE, UNSPECIFIED Qualifiers: Congestive heart failure type: diastolic Congestive heart failure chronicity: acute on chronic Qualified Code(s): I50.33 - Acute on chronic diastolic (congestive) heart failure (3) A-fib Assessment/Plan: on AC monitor INR Code(s): I48.91 - UNSPECIFIED ATRIAL FIBRILLATION Qualifiers: Atrial fibrillation type: permanent Qualified Code(s): I48.2 - Chronic atrial fibrillation (4) Chronic kidney disease Assessment/Plan: monitor Renal function Code(s): N18.9 - CHRONIC KIDNEY DISEASE, UNSPECIFIED Qualifiers: Chronic kidney disease stage: stage 2 (mild) Qualified Code(s): N18.2 - Chronic kidney disease, stage 2 (mild) (5) SSS (sick sinus syndrome) Code(s): I49.5 - SICK SINUS SYNDROME (6) History of pacemaker Code(s): Z95.0 - PRESENCE OF CARDIAC PACEMAKER (7) Hyperlipidemia Code(s): E78.5 - HYPERLIPIDEMIA, UNSPECIFIED Qualifiers: Hyperlipidemia type: pure hypercholesterolemia (8) Hypertension Code(s): I10 - ESSENTIAL (PRIMARY) HYPERTENSION Qualifiers: Hypertension type: essential hypertension Qualified Code(s): I10 - Essential (primary) hypertension (9) Urinary retention Assessment/Plan: self cath. every 3 days Code(s): R33.9 - RETENTION OF URINE, UNSPECIFIED Assessment/Plan AM labs
[2016-05-23] MEDS ORDERED: WARFARIN NA 1 MG TABLET (FP) PO ONE (23:45)
[2016-05-24] MEDS: METOPROLOL TARTRATE 50 MG TABLET (FP) PO SCH ×3 (06:14→21:36)
[2016-05-24 08:25] LABS: INR 2.31 (0.82-1.09); PROTHROMBIN TIME (PATIENT) 25.8 SEC (9.98-11.88)
--- NOTE | 2016-05-24 08:28 | PN ---
Progress Note, Physician Chief Complaint: Episode of shortness of breath after walking yesterday and cough last night Currently asymptomatic History of Present Illness: Patient was seen and examined. Awake and alert. Chart was reviewed Denies chest pain, SOB or palpitations No cough - Current Medication List Current Medications: Active Medications Acetaminophen (Tylenol -) 650 mg PO Q6H PRN PRN Reason: PAIN Allopurinol (Zyloprim -) 100 mg PO DAILY [facility] Last Admin: 05/23/16 09:36 Dose: 100 mg Ascorbic Acid (Vitamin C -) 500 mg PO DAILY [facility] Last Admin: 05/23/16 09:37 Dose: 500 mg Cholecalciferol (Vitamin D3 -) 5,000 unit PO DAILY [facility] Last Admin: 05/23/16 09:36 Dose: 5,000 unit Docusate Sodium (Colace -) 100 mg PO HS [facility] Last Admin: 05/23/16 21:53 Dose: 100 mg Furosemide (Lasix Injection -) 40 mg IVPUSH DAILY [facility] Ceftriaxone Sodium (Rocephin 1gm Ivpb (Pre-Docked)) 50 mls @ 100 mls/hr IVPB DAILY [facility] Last Admin: 05/23/16 09:33 Dose: 100 mls/hr Losartan Potassium (Cozaar -) 50 mg PO BID [facility] Last Admin: 05/23/16 21:53 Dose: 50 mg Magnesium Oxide (Mag-Ox -) 400 mg PO BID [facility] Last Admin: 05/23/16 21:53 Dose: 400 mg Methylprednisolone Sodium Succinate (Solu-Medrol -) 40 mg IVPB BID [facility] Last Admin: 05/23/16 21:53 Dose: 40 mg Metoprolol Tartrate (Lopressor -) 50 mg PO TID [facility] Last Admin: 05/24/16 06:14 Dose: 50 mg Mometasone Furoate (Asmanex 110mcg -) 1 puff IH DAILY [facility] Last Admin: 05/23/16 09:33 Dose: 1 puff Non-Formulary Medication (Albuterol Sulfate [Proair Respiclick]) 90 mcg IH QID PRN PRN Reason: SHORTNESS OF BREATH Non-Formulary Medication (L.Acidoph,Paracasei, B.Lactis [Probiotic]) 1 each PO DAILY [facility] Non-Formulary Medication (Methenamine Hippurate) 1 gm PO BID [facility] Non-Formulary Medication (Triamcinolone Acetonide [Nasacort]) 10.8 ml NS DAILY [facility] Pyridoxine HCl (Vitamin B6 -) 50 mg PO DAILY [facility] Last Admin: 05/23/16 09:35 Dose: 50 mg Tamsulosin HCl (Flomax -) 0.4 mg PO DAILY@0830 [facility] Last Admin: 05/23/16 09:33 Dose: 0.4 mg Thiamine HCl (Vitamin B1 -) 100 mg PO DAILY [facility] Last Admin: 05/23/16 09:37 Dose: 100 mg Triamcinolone Acetonide (Aristocort 0.1% Cream -) 0 applic TP PRN [facility] Warfarin Sodium (Coumadin -) 4 mg PO DAILY@1800 [facility] Last Admin: 05/23/16 17:31 Dose: 4 mg - Objective Vital Signs: Vital Signs Temperature 97.8 F 05/24/16 06:00 Pulse Rate 64 05/24/16 06:00 Respiratory Rate 20 05/24/16 06:00 Blood Pressure 127/72 05/24/16 06:00 O2 Sat by Pulse Oximetry (%) 95 05/22/16 18:09 Cardiovascular: Yes: Pulse Irregular, Murmur (Soft SM), S1, S2 Respiratory: Yes: CTA Bilaterally Gastrointestinal: Yes: Normal Bowel Sounds, Soft. No: Tenderness Edema: No Additional Findings/Remarks: - Review of Systems Constitutional: denies: Chills, Fever Cardiovascular: reports: Shortness of Breath. denies: Chest Pain, Palpitations Respiratory: reports: Cough, SOB, SOB on Exertion. denies: Hemoptysis, Orthopnea, PND Gastrointestinal: denies: Abdominal Pain, Constipation, Diarrhea, Melena, Nausea , Rectal Bleeding, Vomiting Genitourinary: denies: Dysuria Musculoskeletal: denies: Joint Pain Neurological: denies: Dizziness, Headache, Seizure, Syncope Problem List - Problems (1) A-fib Code(s): I48.91 - UNSPECIFIED ATRIAL FIBRILLATION Qualifiers: Atrial fibrillation type: permanent Qualified Code(s): I48.2 - Chronic atrial fibrillation (2) CHF (congestive heart failure) Code(s): I50.9 - HEART FAILURE, UNSPECIFIED Qualifiers: Congestive heart failure type: diastolic Congestive heart failure chronicity: acute on chronic Qualified Code(s): I50.33 - Acute on chronic diastolic (congestive) heart failure (3) Chronic kidney disease Code(s): N18.9 - CHRONIC KIDNEY DISEASE, UNSPECIFIED Qualifiers: Chronic kidney disease stage: stage 2 (mild) Qualified Code(s): N18.2 - Chronic kidney disease, stage 2 (mild) (4) History of pacemaker Code(s): Z95.0 - PRESENCE OF CARDIAC PACEMAKER (5) Hyperlipidemia Code(s): E78.5 - HYPERLIPIDEMIA, UNSPECIFIED Qualifiers: Hyperlipidemia type: pure hypercholesterolemia (6) Hypertension Code(s): I10 - ESSENTIAL (PRIMARY) HYPERTENSION Qualifiers: Hypertension type: essential hypertension Qualified Code(s): I10 - Essential (primary) hypertension (7) SSS (sick sinus syndrome) Code(s): I49.5 - SICK SINUS SYNDROME (8) Congestive heart failure with LV diastolic dysfunction, NYHA class 2 Code(s): I50.30 - UNSPECIFIED DIASTOLIC (CONGESTIVE) HEART FAILURE Assessment/Plan 1. Clinical presentation due to acute on chronic diastolic left ventricular dysfunction with class II NYHA classification heart failure 2. Non-obstructive CAD, angina pectoris 3. Permanent atrial fibrillation on A/C 4. Sick sinus syndrome s/p PPM 5. Hypertension/HCVD 6. Hypercholesterolemia 7. CKD 8. DJD 9. History of urinary retention and nephrolithiasis 10. History of anemia and thrombocytopenia - currently stable PLAN: 1. Continue Cozaar 2. Continue Lopressor 3. Continue Coumadin as per INR 2.0-3.0 4. Diuretics - IV Lasix and monitor renal function and electrolytes 5. Transthoracic echocardiography revealed normal left ventricular systolic function, mild MR, mild to moderate TR and mild AR 6. Ambulate and observe for symptoms Further plans are to follow Aleksey Marquez MD
[2016-05-24 08:29] LABS: CALCIUM 9.4 mg/dL (8.5-10.1); CREATININE 2.1 mg/dL (0.7-1.3)
[2016-05-24] MEDS: TAMSULOSIN HCL 0.4 MG CAP.ER.24H (FP) PO SCH (08:36)
[2016-05-24] MEDS ORDERED: PT OWN MED DRAWER 7, Y5N ONE (10:03)
[2016-05-24] MEDS: CHOLECALCIFEROL (VITAMIN D3) 1,000 UNIT TABLET (FP) PO SCH (10:16)
[2016-05-24] MEDS: THIAMINE HCL 100 MG TABLET (FP) PO SCH (10:16)
[2016-05-24] MEDS: ALLOPURINOL 100 MG TABLET (FP) PO SCH (10:16)
[2016-05-24] MEDS: CEFTRIAXONE 50 ML IVPB SCH (10:16)
[2016-05-24] MEDS: PYRIDOXINE HCL (B-6) 50 MG TABLET (FP) PO SCH (10:16)
[2016-05-24] MEDS: methylPREDNISolone NA SUCC 40 MG/1 ML VIAL IVPB SCH (10:17)
[2016-05-24] MEDS: LOSARTAN POTASSIUM 50 MG TABLET (FP) PO SCH ×2 (10:17→21:36)
[2016-05-24] MEDS: MAGNESIUM OXIDE 400 MG TABLET (FP) PO SCH ×2 (10:17→21:36)
[2016-05-24] MEDS: FUROSEMIDE 40 MG/4 ML INJECTABLE VIAL IVPUSH SCH (10:17)
[2016-05-24] MEDS: ASCORBIC ACID 500 MG TABLET (FP) PO SCH (10:17)
[2016-05-24] MEDS: MOMETASONE FUROATE 110 MCG/IH INHALER IH SCH (10:17)
--- NOTE | 2016-05-24 15:16 | PN ---
Progress Note, Physician History of Present Illness: Pt. states that yesterday afternoon he started to cough and bring up clear sputum and developed wheezing. Now w/ocough, wheezing. Pt. w/o CP/ SOB/ palp./abd pain. - Current Medication List Current Medications: Active Medications Acetaminophen (Tylenol -) 650 mg PO Q6H PRN PRN Reason: PAIN Allopurinol (Zyloprim -) 100 mg PO DAILY [facility] Last Admin: 05/24/16 10:16 Dose: 100 mg Ascorbic Acid (Vitamin C -) 500 mg PO DAILY [facility] Last Admin: 05/24/16 10:17 Dose: 500 mg Cholecalciferol (Vitamin D3 -) 5,000 unit PO DAILY [facility] Last Admin: 05/24/16 10:16 Dose: 5,000 unit Docusate Sodium (Colace -) 100 mg PO HS [facility] Last Admin: 05/23/16 21:53 Dose: 100 mg Furosemide (Lasix Injection -) 40 mg IVPUSH DAILY [facility] Last Admin: 05/24/16 10:17 Dose: 40 mg Ceftriaxone Sodium (Rocephin 1gm Ivpb (Pre-Docked)) 50 mls @ 100 mls/hr IVPB DAILY [facility] Last Admin: 05/24/16 10:16 Dose: 100 mls/hr Losartan Potassium (Cozaar -) 50 mg PO BID [facility] Last Admin: 05/24/16 10:17 Dose: 50 mg Magnesium Oxide (Mag-Ox -) 400 mg PO BID [facility] Last Admin: 05/24/16 10:17 Dose: 400 mg Methylprednisolone Sodium Succinate (Solu-Medrol -) 40 mg IVPB BID [facility] Last Admin: 05/24/16 10:17 Dose: 40 mg Metoprolol Tartrate (Lopressor -) 50 mg PO TID [facility] Last Admin: 05/24/16 14:26 Dose: 50 mg Mometasone Furoate (Asmanex 110mcg -) 1 puff IH DAILY [facility] Last Admin: 05/24/16 10:17 Dose: 1 puff Non-Formulary Medication (Albuterol Sulfate [Proair Respiclick]) 90 mcg IH QID PRN PRN Reason: SHORTNESS OF BREATH Non-Formulary Medication (L.Acidoph,Paracasei, B.Lactis [Probiotic]) 1 each PO DAILY [facility] Non-Formulary Medication (Methenamine Hippurate) 1 gm PO BID [facility] Non-Formulary Medication (Triamcinolone Acetonide [Nasacort]) 10.8 ml NS DAILY [facility] Pyridoxine HCl (Vitamin B6 -) 50 mg PO DAILY [facility] Last Admin: 05/24/16 10:16 Dose: 50 mg Tamsulosin HCl (Flomax -) 0.4 mg PO DAILY@0830 [facility] Last Admin: 05/24/16 08:36 Dose: 0.4 mg Thiamine HCl (Vitamin B1 -) 100 mg PO DAILY [facility] Last Admin: 05/24/16 10:16 Dose: 100 mg Triamcinolone Acetonide (Aristocort 0.1% Cream -) 0 applic TP PRN [facility] Warfarin Sodium (Coumadin -) 4 mg PO DAILY@1800 [facility] Last Admin: 05/23/16 17:31 Dose: 4 mg - Objective Vital Signs: Vital Signs Temperature 98.5 F 05/24/16 14:40 Pulse Rate 72 05/24/16 14:40 Respiratory Rate 18 05/24/16 14:40 Blood Pressure 126/70 05/24/16 14:40 O2 Sat by Pulse Oximetry (%) 96 05/24/16 09:00 Constitutional: Yes: No Distress, Calm Cardiovascular: Yes: Regular Rate and Rhythm, S1, S2 Respiratory: Yes: Regular. No: Rales Gastrointestinal: Yes: Normal Bowel Sounds, Soft. No: Palpable Mass, Tenderness Edema: No Neurological: Yes: Alert, Oriented Labs: CBC, BMP 05/22/16 06:00 05/24/16 06:45 INR, PTT INR 2.31 (0.82-1.09) H 05/24/16 06:45 Problem List - Problems (1) COPD exacerbation Assessment/Plan: Pt. on IV steroids; william per Pulmonary. Pulmonary consult appreciated Code(s): J44.1 - CHRONIC OBSTRUCTIVE PULMONARY DISEASE W (ACUTE) EXACERBATION (2) CHF (congestive heart failure) Assessment/Plan: cont. meds Cardio consult appreciated. Code(s): I50.9 - HEART FAILURE, UNSPECIFIED Qualifiers: Congestive heart failure type: diastolic Congestive heart failure chronicity: acute on chronic Qualified Code(s): I50.33 - Acute on chronic diastolic (congestive) heart failure (3) A-fib Assessment/Plan: on AC monitor INR Code(s): I48.91 - UNSPECIFIED ATRIAL FIBRILLATION Qualifiers: Atrial fibrillation type: permanent Qualified Code(s): I48.2 - Chronic atrial fibrillation (4) Chronic kidney disease Assessment/Plan: monitor Renal function Code(s): N18.9 - CHRONIC KIDNEY DISEASE, UNSPECIFIED Qualifiers: Chronic kidney disease stage: stage 2 (mild) Qualified Code(s): N18.2 - Chronic kidney disease, stage 2 (mild) (5) SSS (sick sinus syndrome) Code(s): I49.5 - SICK SINUS SYNDROME (6) History of pacemaker Code(s): Z95.0 - PRESENCE OF CARDIAC PACEMAKER (7) Hyperlipidemia Code(s): E78.5 - HYPERLIPIDEMIA, UNSPECIFIED Qualifiers: Hyperlipidemia type: pure hypercholesterolemia (8) Hypertension Code(s): I10 - ESSENTIAL (PRIMARY) HYPERTENSION Qualifiers: Hypertension type: essential hypertension Qualified Code(s): I10 - Essential (primary) hypertension (9) Urinary retention Code(s): R33.9 - RETENTION OF URINE, UNSPECIFIED Assessment/Plan AM labs
--- NOTE | 2016-05-24 15:51 | PN ---
Progress Note (short form) - Note Progress Note: PULMONARY AWAKE/ALERT OOB TO CHAIR APPEARS STABLE VSS/AFEBRILE ANICTERIC DISTANT BUT CLEAR S1S2 BS+ LESS EDEMA LOWER EXT LABS/MEDS/NOTES/IMAGING REVIEWED A/E CHF COPD MULTIPLE MEDICAL PROBLEMS LISTED AGREE WITH O2 SUPPLEMENTATION BRONCHODILATORS STEROIDS CHANGED TO ORAL CONTINUE DIURETICS/ANTICOAGULATION/ARB/DAILY WEIGHTS Josse GARAY MD Problem List - Problems (1) A-fib Code(s): I48.91 - UNSPECIFIED ATRIAL FIBRILLATION Qualifiers: Atrial fibrillation type: permanent Qualified Code(s): I48.2 - Chronic atrial fibrillation (2) CHF (congestive heart failure) Code(s): I50.9 - HEART FAILURE, UNSPECIFIED Qualifiers: Congestive heart failure type: diastolic Congestive heart failure chronicity: acute on chronic Qualified Code(s): I50.33 - Acute on chronic diastolic (congestive) heart failure (3) COPD exacerbation Code(s): J44.1 - CHRONIC OBSTRUCTIVE PULMONARY DISEASE W (ACUTE) EXACERBATION (4) Chronic kidney disease Code(s): N18.9 - CHRONIC KIDNEY DISEASE, UNSPECIFIED Qualifiers: Chronic kidney disease stage: stage 2 (mild) Qualified Code(s): N18.2 - Chronic kidney disease, stage 2 (mild) (5) Diastolic CHF, chronic Code(s): I50.32 - CHRONIC DIASTOLIC (CONGESTIVE) HEART FAILURE
[2016-05-24] MEDS: WARFARIN NA 2 MG TABLET (UD) PO SCH (17:36)
[2016-05-24] MEDS: DOCUSATE SODIUM 100 MG CAPSULE (FP) PO SCH (21:36)
[2016-05-25] MEDS: METOPROLOL TARTRATE 50 MG TABLET (FP) PO SCH ×3 (06:07→21:43)
[2016-05-25] MEDS: TAMSULOSIN HCL 0.4 MG CAP.ER.24H (FP) PO SCH (08:22)
[2016-05-25 08:31] LABS: INR 2.6 (0.82-1.09); PROTHROMBIN TIME (PATIENT) 29.2 SEC (9.98-11.88)
[2016-05-25 09:14] LABS: CALCIUM 8.8 mg/dL (8.5-10.1); CREATININE 2.2 mg/dL (0.7-1.3)
[2016-05-25] MEDS ORDERED: PT OWN MED DRAWER 7, Y5N ONE ×2 (10:10→10:15)
[2016-05-25] MEDS: LOSARTAN POTASSIUM 50 MG TABLET (FP) PO SCH (10:20)
[2016-05-25] MEDS: MAGNESIUM OXIDE 400 MG TABLET (FP) PO SCH ×2 (10:20→21:43)
[2016-05-25] MEDS: PYRIDOXINE HCL (B-6) 50 MG TABLET (FP) PO SCH (10:20)
[2016-05-25] MEDS: ALLOPURINOL 100 MG TABLET (FP) PO SCH (10:20)
[2016-05-25] MEDS: predniSONE 10 MG TABLET (UD) PO SCH (10:21)
[2016-05-25] MEDS: THIAMINE HCL 100 MG TABLET (FP) PO SCH (10:21)
[2016-05-25] MEDS: FUROSEMIDE 40 MG/4 ML INJECTABLE VIAL IVPUSH SCH (10:21)
[2016-05-25] MEDS: LACTOBACILLUS ACIDOPHILUS 1 EACH TAB (FP) PO SCH (10:21)
[2016-05-25] MEDS: CEFTRIAXONE 50 ML IVPB SCH (10:22)
[2016-05-25] MEDS: ASCORBIC ACID 500 MG TABLET (FP) PO SCH (10:22)
[2016-05-25] MEDS: CHOLECALCIFEROL (VITAMIN D3) 1,000 UNIT TABLET (FP) PO SCH (10:22)
[2016-05-25] MEDS: MOMETASONE FUROATE 110 MCG/IH INHALER IH SCH (10:23)
[2016-05-25] MEDS: guaiFENesin/D-METHORPHAN HB 10 ML UNIT-DOSE CUPS PO PRN ×2 (12:16→18:08)
--- NOTE | 2016-05-25 12:21 | PN ---
Progress Note (short form) - Note Progress Note: OOB to chair. NAD on RA. Some cough with white/clear sputum. Intake & Output 05/22/16 05/23/16 05/24/16 05/25/16 23:59 23:59 23:59 23:59 Intake Total 431 191 5171 500 Output Total 1000 0 1925 800 Balance -200 -1350 -575 -300 Weight 173 lb 5 oz 173 lb 9 oz 183 lb Last Vital Signs Temp Pulse Resp BP Pulse Ox 97.5 F L 67 20 110/64 96 05/25/16 10:00 05/25/16 10:00 05/25/16 10:00 05/25/16 10:00 05/24/16 21:00 Active Medications Acetaminophen (Tylenol -) 650 mg PO Q6H PRN PRN Reason: PAIN Albuterol Sulfate (Ventolin Hfa Inhaler -) 1 puff IH QIDR PRN PRN Reason: SHORTNESS OF BREATH Allopurinol (Zyloprim -) 100 mg PO DAILY [facility] Last Admin: 05/25/16 10:20 Dose: 100 mg Ascorbic Acid (Vitamin C -) 500 mg PO DAILY [facility] Last Admin: 05/25/16 10:22 Dose: 500 mg Cholecalciferol (Vitamin D3 -) 5,000 unit PO DAILY [facility] Last Admin: 05/25/16 10:22 Dose: 5,000 unit Docusate Sodium (Colace -) 100 mg PO HS [facility] Last Admin: 05/24/16 21:36 Dose: 100 mg Furosemide (Lasix Injection -) 40 mg IVPUSH DAILY [facility] Last Admin: 05/25/16 10:21 Dose: 40 mg Guaifenesin (Robitussin Dm -) 10 ml PO Q6H PRN PRN Reason: COUGH Last Admin: 05/25/16 12:16 Dose: 10 ml Ceftriaxone Sodium (Rocephin 1gm Ivpb (Pre-Docked)) 50 mls @ 100 mls/hr IVPB DAILY [facility] Last Admin: 05/25/16 10:22 Dose: 100 mls/hr Lactobacillus Acidophilus (Bacid -) 1 tab PO DAILY [facility] Last Admin: 05/25/16 10:21 Dose: 1 tab Losartan Potassium (Cozaar -) 50 mg PO BID [facility] Last Admin: 05/25/16 10:20 Dose: 50 mg Magnesium Oxide (Mag-Ox -) 400 mg PO BID [facility] Last Admin: 05/25/16 10:20 Dose: 400 mg Metoprolol Tartrate (Lopressor -) 50 mg PO TID [facility] Last Admin: 05/25/16 06:07 Dose: 50 mg Mometasone Furoate (Asmanex 110mcg -) 1 puff IH DAILY [facility] Last Admin: 05/25/16 10:23 Dose: 1 puff Non-Formulary Medication (Methenamine Hippurate) 1 gm PO BID [facility] Non-Formulary Medication (Triamcinolone Acetonide [Nasacort]) 10.8 ml NS DAILY [facility] Prednisone (Deltasone -) 30 mg PO DAILY [facility] Last Admin: 05/25/16 10:21 Dose: 30 mg Pyridoxine HCl (Vitamin B6 -) 50 mg PO DAILY [facility] Last Admin: 05/25/16 10:20 Dose: 50 mg Tamsulosin HCl (Flomax -) 0.4 mg PO DAILY@0830 [facility] Last Admin: 05/25/16 08:22 Dose: 0.4 mg Thiamine HCl (Vitamin B1 -) 100 mg PO DAILY [facility] Last Admin: 05/25/16 10:21 Dose: 100 mg Triamcinolone Acetonide (Aristocort 0.1% Cream -) 0 applic TP PRN [facility] Warfarin Sodium (Coumadin -) 4 mg PO DAILY@1800 [facility] Last Admin: 05/24/16 17:36 Dose: 4 mg Constitutional: Yes: No Distress, Calm Cardiovascular: Yes: Regular Rate and Rhythm, S1, S2 Respiratory: Yes: Regular. No: Rales Gastrointestinal: Yes: Normal Bowel Sounds, Soft. No: Palpable Mass, Tenderness Edema: No Neurological: Yes: Alert, Oriented Labs: Laboratory Results - last 24 hr 05/25/16 05/25/16 06:30 06:30 INR 2.60 H Sodium 139 Potassium 3.7 Chloride 100 Carbon Dioxide 25 Anion Gap 14 BUN 55 H Creatinine 2.2 H Random Glucose 76 Calcium 8.8 Problem List - Problems (1) COPD exacerbation Assessment/Plan: Code(s): J44.1 - CHRONIC OBSTRUCTIVE PULMONARY DISEASE W (ACUTE) EXACERBATION (2) CHF (congestive heart failure) Assessment/Plan: Code(s): I50.9 - HEART FAILURE, UNSPECIFIED Qualifiers: Congestive heart failure type: diastolic Congestive heart failure chronicity: acute on chronic Qualified Code(s): I50.33 - Acute on chronic diastolic (congestive) heart failure (3) A-fib Assessment/Plan: Code(s): I48.91 - UNSPECIFIED ATRIAL FIBRILLATION Qualifiers: Atrial fibrillation type: permanent Qualified Code(s): I48.2 - Chronic atrial fibrillation (4) Chronic kidney disease Assessment/Plan: Code(s): N18.9 - CHRONIC KIDNEY DISEASE, UNSPECIFIED Qualifiers: Chronic kidney disease stage: stage 2 (mild) Qualified Code(s): N18.2 - Chronic kidney disease, stage 2 (mild) (5) SSS (sick sinus syndrome) Code(s): I49.5 - SICK SINUS SYNDROME (6) History of pacemaker Code(s): Z95.0 - PRESENCE OF CARDIAC PACEMAKER (7) Hyperlipidemia Code(s): E78.5 - HYPERLIPIDEMIA, UNSPECIFIED Qualifiers: Hyperlipidemia type: pure hypercholesterolemia (8) Hypertension Code(s): I10 - ESSENTIAL (PRIMARY) HYPERTENSION Qualifiers: Hypertension type: essential hypertension Qualified Code(s): I10 - Essential (primary) hypertension (9) Urinary retention Code(s): R33.9 - RETENTION OF URINE, UNSPECIFIED Assessment/Plan Short course of Prednisone Cough syrup PRN BD TX PRN Coumadin O2 as needed No Pulmonary contraindication for D/C planning Dr Robbins
--- NOTE | 2016-05-25 15:03 | PN ---
Progress Note (short form) - Note Progress Note: Chief Complaint: Events noted, notes reviewed, Denies any further dyspnea, Denies any chest pain, Reports persistent cough History of Present Illness: Seen and examined. Events noted, notes reviewed, Denies any further dyspnea, Denies any chest pain, Reports persistent cough Echocardiography performed yesterday revealed overall preserved left ventricular systolic function, bi-atrial dilatation, mild mitral valve regurgitation, mild to moderate tricuspid valve regurgitation Medications: Current Medications Acetaminophen (Tylenol -) 650 mg PO Q6H PRN PRN Reason: PAIN Albuterol Sulfate (Ventolin Hfa Inhaler -) 1 puff IH QIDR PRN PRN Reason: SHORTNESS OF BREATH Allopurinol (Zyloprim -) 100 mg PO DAILY [facility] Last Admin: 05/25/16 10:20 Dose: 100 mg Ascorbic Acid (Vitamin C -) 500 mg PO DAILY [facility] Last Admin: 05/25/16 10:22 Dose: 500 mg Cholecalciferol (Vitamin D3 -) 5,000 unit PO DAILY [facility] Last Admin: 05/25/16 10:22 Dose: 5,000 unit Docusate Sodium (Colace -) 100 mg PO HS [facility] Last Admin: 05/24/16 21:36 Dose: 100 mg Furosemide (Lasix Injection -) 40 mg IVPUSH DAILY [facility] Last Admin: 05/25/16 10:21 Dose: 40 mg Guaifenesin (Robitussin Dm -) 10 ml PO Q6H PRN PRN Reason: COUGH Last Admin: 05/25/16 12:16 Dose: 10 ml Ceftriaxone Sodium (Rocephin 1gm Ivpb (Pre-Docked)) 50 mls @ 100 mls/hr IVPB DAILY [facility] Last Admin: 05/25/16 10:22 Dose: 100 mls/hr Lactobacillus Acidophilus (Bacid -) 1 tab PO DAILY [facility] Last Admin: 05/25/16 10:21 Dose: 1 tab Losartan Potassium (Cozaar -) 50 mg PO BID [facility] Last Admin: 05/25/16 10:20 Dose: 50 mg Magnesium Oxide (Mag-Ox -) 400 mg PO BID [facility] Last Admin: 05/25/16 10:20 Dose: 400 mg Metoprolol Tartrate (Lopressor -) 50 mg PO TID [facility] Last Admin: 05/25/16 14:21 Dose: 50 mg Mometasone Furoate (Asmanex 110mcg -) 1 puff IH DAILY [facility] Last Admin: 05/25/16 10:23 Dose: 1 puff Non-Formulary Medication (Methenamine Hippurate) 1 gm PO BID [facility] Non-Formulary Medication (Triamcinolone Acetonide [Nasacort]) 10.8 ml NS DAILY [facility] Prednisone (Deltasone -) 30 mg PO DAILY [facility] Last Admin: 05/25/16 10:21 Dose: 30 mg Pyridoxine HCl (Vitamin B6 -) 50 mg PO DAILY [facility] Last Admin: 05/25/16 10:20 Dose: 50 mg Tamsulosin HCl (Flomax -) 0.4 mg PO DAILY@0830 [facility] Last Admin: 05/25/16 08:22 Dose: 0.4 mg Thiamine HCl (Vitamin B1 -) 100 mg PO DAILY [facility] Last Admin: 05/25/16 10:21 Dose: 100 mg Triamcinolone Acetonide (Aristocort 0.1% Cream -) 0 applic TP PRN [facility] Warfarin Sodium (Coumadin -) 4 mg PO DAILY@1800 [facility] Last Admin: 05/24/16 17:36 Dose: 4 mg Vital Signs: Last Vital Signs Temp Pulse Resp BP Pulse Ox 98 F 80 20 110/64 96 05/25/16 14:56 05/25/16 14:56 05/25/16 14:56 05/25/16 10:00 05/24/16 21:00 Constitutional: No Distress Neck: Supple Negative JVD No Bruit Respiratory: Clear to A&P Bilaterally Cardiovascular: S1 S2 Irregular Irregular Gastrointestinal: Soft Benign Normal Bowel Sounds Ext: Trace Bilateral Edema Intact Distal Pulses No Calf Tenderness Labs: CBC, BMP 05/22/16 06:00 05/25/16 06:30 INR, PTT INR 2.60 (0.82-1.09) H 05/25/16 06:30 Assessment/Plan Assessment/Plan: 1. Acute on chronic class I-II NYHA classification LV failure related to diastolic LV dysfunction, resolved 2. Probable acute bronchitis, resolving 3. CAD non-obstructive CAD angina pectoris 4. Permanent atrial fibrillation on A/C with Coumadin therapeutic INR 5. Sick Sinus Syndrome post PPM 6. HTN 7. Hypercholesterolemia 8. Degenerative joint disease 9. CKD 10. History of bilateral nephrolithiasis 11. Chronic anemia 12. Chronic thrombocytopenia PLAN: 1. Continue Lopressor 2. Continue Cozaar with caution, monitor renal function closely 3. A/C with Coumadin as per INR, maintain 2-3 4. Continue Lasix (switch to PO) with caution, monitor renal function closely 5. Antibiotics as per the primary team Steve Nixon MD
--- NOTE | 2016-05-25 15:10 | PN ---
Progress Note, Physician History of Present Illness: Pt. states that this AM walked outside his room and felt SOB, no cough, no wheezing. Pt. now w/o CP/ SOB/ palp./abd pain/ leg edema. - Current Medication List Current Medications: Active Medications Acetaminophen (Tylenol -) 650 mg PO Q6H PRN PRN Reason: PAIN Albuterol Sulfate (Ventolin Hfa Inhaler -) 1 puff IH QIDR PRN PRN Reason: SHORTNESS OF BREATH Allopurinol (Zyloprim -) 100 mg PO DAILY [facility] Last Admin: 05/25/16 10:20 Dose: 100 mg Ascorbic Acid (Vitamin C -) 500 mg PO DAILY [facility] Last Admin: 05/25/16 10:22 Dose: 500 mg Cholecalciferol (Vitamin D3 -) 5,000 unit PO DAILY [facility] Last Admin: 05/25/16 10:22 Dose: 5,000 unit Docusate Sodium (Colace -) 100 mg PO HS [facility] Last Admin: 05/24/16 21:36 Dose: 100 mg Furosemide (Lasix Injection -) 40 mg IVPUSH DAILY [facility] Last Admin: 05/25/16 10:21 Dose: 40 mg Guaifenesin (Robitussin Dm -) 10 ml PO Q6H PRN PRN Reason: COUGH Last Admin: 05/25/16 12:16 Dose: 10 ml Ceftriaxone Sodium (Rocephin 1gm Ivpb (Pre-Docked)) 50 mls @ 100 mls/hr IVPB DAILY [facility] Last Admin: 05/25/16 10:22 Dose: 100 mls/hr Lactobacillus Acidophilus (Bacid -) 1 tab PO DAILY [facility] Last Admin: 05/25/16 10:21 Dose: 1 tab Losartan Potassium (Cozaar -) 50 mg PO BID [facility] Last Admin: 05/25/16 10:20 Dose: 50 mg Magnesium Oxide (Mag-Ox -) 400 mg PO BID [facility] Last Admin: 05/25/16 10:20 Dose: 400 mg Metoprolol Tartrate (Lopressor -) 50 mg PO TID [facility] Last Admin: 05/25/16 14:21 Dose: 50 mg Mometasone Furoate (Asmanex 110mcg -) 1 puff IH DAILY [facility] Last Admin: 05/25/16 10:23 Dose: 1 puff Non-Formulary Medication (Methenamine Hippurate) 1 gm PO BID [facility] Non-Formulary Medication (Triamcinolone Acetonide [Nasacort]) 10.8 ml NS DAILY [facility] Prednisone (Deltasone -) 30 mg PO DAILY [facility] Last Admin: 05/25/16 10:21 Dose: 30 mg Pyridoxine HCl (Vitamin B6 -) 50 mg PO DAILY [facility] Last Admin: 05/25/16 10:20 Dose: 50 mg Tamsulosin HCl (Flomax -) 0.4 mg PO DAILY@0830 [facility] Last Admin: 05/25/16 08:22 Dose: 0.4 mg Thiamine HCl (Vitamin B1 -) 100 mg PO DAILY [facility] Last Admin: 05/25/16 10:21 Dose: 100 mg Triamcinolone Acetonide (Aristocort 0.1% Cream -) 0 applic TP PRN [facility] Warfarin Sodium (Coumadin -) 4 mg PO DAILY@1800 [facility] Last Admin: 05/24/16 17:36 Dose: 4 mg - Objective Vital Signs: Vital Signs Temperature 98 F 05/25/16 14:56 Pulse Rate 80 05/25/16 14:56 Respiratory Rate 20 05/25/16 14:56 Blood Pressure 110/64 05/25/16 10:00 O2 Sat by Pulse Oximetry (%) 96 05/24/16 21:00 Constitutional: Yes: No Distress, Calm Cardiovascular: Yes: Regular Rate and Rhythm, S1, S2 Respiratory: Yes: Regular, CTA Bilaterally. No: Rales Gastrointestinal: Yes: Normal Bowel Sounds, Soft. No: Tenderness Edema: No Labs: CBC, BMP 05/22/16 06:00 05/25/16 06:30 INR, PTT INR 2.60 (0.82-1.09) H 05/25/16 06:30 Problem List - Problems (1) COPD exacerbation Assessment/Plan: Pt. on steroids; william per Pulmonary. Pulmonary consult and f/u appreciated Code(s): J44.1 - CHRONIC OBSTRUCTIVE PULMONARY DISEASE W (ACUTE) EXACERBATION (2) CHF (congestive heart failure) Assessment/Plan: cont. meds Cardio consult and f/u appreciated. Code(s): I50.9 - HEART FAILURE, UNSPECIFIED Qualifiers: Qualified Code(s): I50.33 - Acute on chronic diastolic (congestive) heart failure (3) A-fib Assessment/Plan: on AC monitor INR Code(s): I48.91 - UNSPECIFIED ATRIAL FIBRILLATION Qualifiers: Qualified Code(s): I48.2 - Chronic atrial fibrillation (4) Chronic kidney disease Assessment/Plan: Creatinine trending up; to readjust meds. monitor Renal function Code(s): N18.9 - CHRONIC KIDNEY DISEASE, UNSPECIFIED Qualifiers: Qualified Code(s): N18.2 - Chronic kidney disease, stage 2 (mild) (5) SSS (sick sinus syndrome) Code(s): I49.5 - SICK SINUS SYNDROME (6) History of pacemaker Code(s): Z95.0 - PRESENCE OF CARDIAC PACEMAKER (7) Hyperlipidemia Code(s): E78.5 - HYPERLIPIDEMIA, UNSPECIFIED Qualifiers: Qualified Code(s): E78.00 - Pure hypercholesterolemia, unspecified; E78.0 - Pure hypercholesterolemia (8) Hypertension Code(s): I10 - ESSENTIAL (PRIMARY) HYPERTENSION Qualifiers: Qualified Code(s): I10 - Essential (primary) hypertension (9) Urinary retention Assessment/Plan: self cath. every 3 days Code(s): R33.9 - RETENTION OF URINE, UNSPECIFIED Assessment/Plan AM labs Pre and post O2 sat in AM
[2016-05-25] MEDS: WARFARIN NA 2 MG TABLET (UD) PO SCH (17:27)
[2016-05-25] MEDS: DOCUSATE SODIUM 100 MG CAPSULE (FP) PO SCH (21:43)
[2016-05-26] MEDS: guaiFENesin/D-METHORPHAN HB 10 ML UNIT-DOSE CUPS PO PRN ×4 (00:25→19:17)
[2016-05-26] MEDS: METOPROLOL TARTRATE 50 MG TABLET (FP) PO SCH ×3 (06:12→21:35)
[2016-05-26 09:15] LABS: CREATININE 2.2 mg/dL (0.7-1.3)
[2016-05-26] MEDS: CEFTRIAXONE 50 ML IVPB SCH (09:42)
[2016-05-26] MEDS: PYRIDOXINE HCL (B-6) 50 MG TABLET (FP) PO SCH (09:43)
[2016-05-26] MEDS: LACTOBACILLUS ACIDOPHILUS 1 EACH TAB (FP) PO SCH (09:43)
[2016-05-26] MEDS: FUROSEMIDE 40 MG/4 ML INJECTABLE VIAL IVPUSH SCH (09:43)
[2016-05-26] MEDS: TAMSULOSIN HCL 0.4 MG CAP.ER.24H (FP) PO SCH (09:43)
[2016-05-26] MEDS: MOMETASONE FUROATE 110 MCG/IH INHALER IH SCH (09:43)
[2016-05-26] MEDS: THIAMINE HCL 100 MG TABLET (FP) PO SCH (09:44)
[2016-05-26] MEDS: CHOLECALCIFEROL (VITAMIN D3) 1,000 UNIT TABLET (FP) PO SCH (09:44)
[2016-05-26] MEDS: ALLOPURINOL 100 MG TABLET (FP) PO SCH (09:44)
[2016-05-26] MEDS: LOSARTAN POTASSIUM 50 MG TABLET (FP) PO SCH (09:44)
[2016-05-26] MEDS: predniSONE 10 MG TABLET (UD) PO SCH (09:44)
[2016-05-26] MEDS: MAGNESIUM OXIDE 400 MG TABLET (FP) PO SCH ×2 (09:44→21:35)
[2016-05-26] MEDS: ASCORBIC ACID 500 MG TABLET (FP) PO SCH (09:44)
[2016-05-26 10:03] LABS: INR 2.67 (0.82-1.09)
--- NOTE | 2016-05-26 11:18 | PN ---
Progress Note (short form) - Note Progress Note: Resting in NAD on RA. Minimal change in cough of white/clear sputum. Intake & Output 05/23/16 05/24/16 05/25/16 05/26/16 23:59 23:59 23:59 23:59 Intake Total 700 1350 500 Output Total 2049 1925 1300 400 Balance -1350 -575 -800 -400 Weight 173 lb 5 oz 173 lb 9 oz 183 lb 184 lb Last Vital Signs Temp Pulse Resp BP Pulse Ox 98.2 F 68 20 116/72 96 05/26/16 05:45 05/26/16 05:45 05/26/16 05:45 05/26/16 05:45 05/25/16 21:00 Active Medications Acetaminophen (Tylenol -) 650 mg PO Q6H PRN PRN Reason: PAIN Albuterol Sulfate (Ventolin Hfa Inhaler -) 1 puff IH QIDR PRN PRN Reason: SHORTNESS OF BREATH Allopurinol (Zyloprim -) 100 mg PO DAILY [facility] Last Admin: 05/26/16 09:44 Dose: 100 mg Ascorbic Acid (Vitamin C -) 500 mg PO DAILY [facility] Last Admin: 05/26/16 09:44 Dose: 500 mg Cholecalciferol (Vitamin D3 -) 5,000 unit PO DAILY [facility] Last Admin: 05/26/16 09:44 Dose: 5,000 unit Docusate Sodium (Colace -) 100 mg PO HS [facility] Last Admin: 05/25/16 21:43 Dose: 100 mg Guaifenesin (Robitussin Dm -) 10 ml PO Q6H PRN PRN Reason: COUGH Last Admin: 05/26/16 06:12 Dose: 10 ml Ceftriaxone Sodium (Rocephin 1gm Ivpb (Pre-Docked)) 50 mls @ 100 mls/hr IVPB DAILY [facility] Last Admin: 05/26/16 09:42 Dose: 100 mls/hr Lactobacillus Acidophilus (Bacid -) 1 tab PO DAILY [facility] Last Admin: 05/26/16 09:43 Dose: 1 tab Losartan Potassium (Cozaar -) 50 mg PO BID [facility] Last Admin: 05/26/16 09:44 Dose: 50 mg Magnesium Oxide (Mag-Ox -) 400 mg PO BID [facility] Last Admin: 05/26/16 09:44 Dose: 400 mg Metoprolol Tartrate (Lopressor -) 50 mg PO TID [facility] Last Admin: 05/26/16 06:12 Dose: 50 mg Mometasone Furoate (Asmanex 110mcg -) 1 puff IH DAILY [facility] Last Admin: 05/26/16 09:43 Dose: 1 puff Non-Formulary Medication (Methenamine Hippurate) 1 gm PO BID [facility] Non-Formulary Medication (Triamcinolone Acetonide [Nasacort]) 10.8 ml NS DAILY [facility] Prednisone (Deltasone -) 30 mg PO DAILY [facility] Last Admin: 05/26/16 09:44 Dose: 30 mg Pyridoxine HCl (Vitamin B6 -) 50 mg PO DAILY [facility] Last Admin: 05/26/16 09:43 Dose: 50 mg Tamsulosin HCl (Flomax -) 0.4 mg PO DAILY@0830 [facility] Last Admin: 05/26/16 09:43 Dose: 0.4 mg Thiamine HCl (Vitamin B1 -) 100 mg PO DAILY [facility] Last Admin: 05/26/16 09:44 Dose: 100 mg Triamcinolone Acetonide (Aristocort 0.1% Cream -) 0 applic TP PRN [facility] Warfarin Sodium (Coumadin -) 4 mg PO DAILY@1800 [facility] Last Admin: 05/25/16 17:27 Dose: 4 mg Constitutional: Yes: No Distress, Calm Cardiovascular: Yes: Regular Rate and Rhythm, S1, S2 Respiratory: Yes: Regular. No: Rales Gastrointestinal: Yes: Normal Bowel Sounds, Soft. No: Palpable Mass, Tenderness Edema: No Neurological: Yes: Alert, Oriented Labs: Laboratory Results - last 24 hr 05/26/16 05/26/16 06:00 06:00 INR 2.67 H Sodium 139 Potassium 3.5 Chloride 99 Carbon Dioxide 26 Anion Gap 14 BUN 56 H Creatinine 2.2 H Random Glucose 98 D Calcium 9.0 Problem List - Problems (1) COPD exacerbation Assessment/Plan: Code(s): J44.1 - CHRONIC OBSTRUCTIVE PULMONARY DISEASE W (ACUTE) EXACERBATION (2) CHF (congestive heart failure) Assessment/Plan: Code(s): I50.9 - HEART FAILURE, UNSPECIFIED Qualifiers: Congestive heart failure type: diastolic Congestive heart failure chronicity: acute on chronic Qualified Code(s): I50.33 - Acute on chronic diastolic (congestive) heart failure (3) A-fib Assessment/Plan: Code(s): I48.91 - UNSPECIFIED ATRIAL FIBRILLATION Qualifiers: Atrial fibrillation type: permanent Qualified Code(s): I48.2 - Chronic atrial fibrillation (4) Chronic kidney disease Assessment/Plan: Code(s): N18.9 - CHRONIC KIDNEY DISEASE, UNSPECIFIED Qualifiers: Chronic kidney disease stage: stage 2 (mild) Qualified Code(s): N18.2 - Chronic kidney disease, stage 2 (mild) (5) SSS (sick sinus syndrome) Code(s): I49.5 - SICK SINUS SYNDROME (6) History of pacemaker Code(s): Z95.0 - PRESENCE OF CARDIAC PACEMAKER (7) Hyperlipidemia Code(s): E78.5 - HYPERLIPIDEMIA, UNSPECIFIED Qualifiers: Hyperlipidemia type: pure hypercholesterolemia (8) Hypertension Code(s): I10 - ESSENTIAL (PRIMARY) HYPERTENSION Qualifiers: Hypertension type: essential hypertension Qualified Code(s): I10 - Essential (primary) hypertension (9) Urinary retention Code(s): R33.9 - RETENTION OF URINE, UNSPECIFIED Assessment/Plan Short course of Prednisone Cough syrup PRN BD TX PRN Coumadin O2 as needed Check O2 saturation pre and post ambulation on RA No Pulmonary contraindication for D/C planning Dr Robbins
--- NOTE | 2016-05-26 11:37 | PN ---
Progress Note, Physician History of Present Illness: Pt. states that this AM walked outside his room and felt SOB and cough, no wheezing; states that has sputum but cannot bring it up. Pt. now w/o CP/ SOB/ palp./abd pain/ leg edema. - Current Medication List Current Medications: Active Medications Acetaminophen (Tylenol -) 650 mg PO Q6H PRN PRN Reason: PAIN Albuterol Sulfate (Ventolin Hfa Inhaler -) 1 puff IH QIDR PRN PRN Reason: SHORTNESS OF BREATH Allopurinol (Zyloprim -) 100 mg PO DAILY [facility] Last Admin: 05/26/16 09:44 Dose: 100 mg Ascorbic Acid (Vitamin C -) 500 mg PO DAILY [facility] Last Admin: 05/26/16 09:44 Dose: 500 mg Cholecalciferol (Vitamin D3 -) 5,000 unit PO DAILY [facility] Last Admin: 05/26/16 09:44 Dose: 5,000 unit Docusate Sodium (Colace -) 100 mg PO HS [facility] Last Admin: 05/25/16 21:43 Dose: 100 mg Guaifenesin (Robitussin Dm -) 10 ml PO Q6H PRN PRN Reason: COUGH Last Admin: 05/26/16 06:12 Dose: 10 ml Ceftriaxone Sodium (Rocephin 1gm Ivpb (Pre-Docked)) 50 mls @ 100 mls/hr IVPB DAILY [facility] Last Admin: 05/26/16 09:42 Dose: 100 mls/hr Lactobacillus Acidophilus (Bacid -) 1 tab PO DAILY [facility] Last Admin: 05/26/16 09:43 Dose: 1 tab Loratadine (Claritin -) 10 mg PO DAILY [facility] Losartan Potassium (Cozaar -) 50 mg PO BID [facility] Last Admin: 05/26/16 09:44 Dose: 50 mg Magnesium Oxide (Mag-Ox -) 400 mg PO BID [facility] Last Admin: 05/26/16 09:44 Dose: 400 mg Metoprolol Tartrate (Lopressor -) 50 mg PO TID [facility] Last Admin: 05/26/16 06:12 Dose: 50 mg Mometasone Furoate (Asmanex 110mcg -) 1 puff IH DAILY [facility] Last Admin: 05/26/16 09:43 Dose: 1 puff Non-Formulary Medication (Methenamine Hippurate) 1 gm PO BID [facility] Non-Formulary Medication (Triamcinolone Acetonide [Nasacort]) 10.8 ml NS DAILY [facility] Prednisone (Deltasone -) 30 mg PO DAILY [facility] Last Admin: 05/26/16 09:44 Dose: 30 mg Pyridoxine HCl (Vitamin B6 -) 50 mg PO DAILY [facility] Last Admin: 05/26/16 09:43 Dose: 50 mg Tamsulosin HCl (Flomax -) 0.4 mg PO DAILY@0830 [facility] Last Admin: 05/26/16 09:43 Dose: 0.4 mg Thiamine HCl (Vitamin B1 -) 100 mg PO DAILY [facility] Last Admin: 05/26/16 09:44 Dose: 100 mg Triamcinolone Acetonide (Aristocort 0.1% Cream -) 0 applic TP PRN [facility] Warfarin Sodium (Coumadin -) 4 mg PO DAILY@1800 [facility] Last Admin: 05/25/16 17:27 Dose: 4 mg - Objective Vital Signs: Vital Signs Temperature 98.2 F 05/26/16 05:45 Pulse Rate 68 05/26/16 05:45 Respiratory Rate 20 05/26/16 05:45 Blood Pressure 116/72 05/26/16 05:45 O2 Sat by Pulse Oximetry (%) 96 05/25/16 21:00 Constitutional: Yes: No Distress, Calm Cardiovascular: Yes: Pulse Irregular, S1, S2 Respiratory: Yes: Regular, Other (coarse BS bilat.). No: Rales Gastrointestinal: Yes: Normal Bowel Sounds, Soft. No: Tenderness Edema: No Neurological: Yes: Alert, Oriented Labs: CBC, BMP 05/22/16 06:00 05/26/16 06:00 INR, PTT INR 2.67 (0.82-1.09) H 05/26/16 06:00 Problem List - Problems (1) COPD exacerbation Assessment/Plan: Pt. on steroids; william per Pulmonary. Pulmonary consult and f/u appreciated, case was discussed at bedside with Dr. Robbins; to check pre and post O2 sat. Code(s): J44.1 - CHRONIC OBSTRUCTIVE PULMONARY DISEASE W (ACUTE) EXACERBATION (2) CHF (congestive heart failure) Assessment/Plan: cont. meds-hold lasix and evening Losartan, as BUN and creatinine are elevated. Cardio consult and f/u appreciated. Code(s): I50.9 - HEART FAILURE, UNSPECIFIED Qualifiers: Congestive heart failure type: diastolic Congestive heart failure chronicity: acute on chronic Qualified Code(s): I50.33 - Acute on chronic diastolic (congestive) heart failure (3) A-fib Assessment/Plan: on AC monitor INR Code(s): I48.91 - UNSPECIFIED ATRIAL FIBRILLATION Qualifiers: Atrial fibrillation type: permanent Qualified Code(s): I48.2 - Chronic atrial fibrillation (4) Chronic kidney disease Assessment/Plan: Creatinine trending up; to readjust meds. monitor Renal function Code(s): N18.9 - CHRONIC KIDNEY DISEASE, UNSPECIFIED Qualifiers: Chronic kidney disease stage: stage 2 (mild) Qualified Code(s): N18.2 - Chronic kidney disease, stage 2 (mild) (5) SSS (sick sinus syndrome) Code(s): I49.5 - SICK SINUS SYNDROME (6) History of pacemaker Code(s): Z95.0 - PRESENCE OF CARDIAC PACEMAKER (7) Hyperlipidemia Code(s): E78.5 - HYPERLIPIDEMIA, UNSPECIFIED Qualifiers: Hyperlipidemia type: pure hypercholesterolemia Qualified Code(s): E78.00 - Pure hypercholesterolemia, unspecified; E78.0 - Pure hypercholesterolemia (8) Hypertension Code(s): I10 - ESSENTIAL (PRIMARY) HYPERTENSION Qualifiers: Hypertension type: essential hypertension (9) Urinary retention Assessment/Plan: self cath. every 3 days Code(s): R33.9 - RETENTION OF URINE, UNSPECIFIED Assessment/Plan AM labs
--- NOTE | 2016-05-26 14:18 | PN ---
Progress Note (short form) - Note Progress Note: Chief Complaint: Events noted, notes reviewed, Denies any further dyspnea, Denies any chest pain, Reports persistent cough but improved History of Present Illness: Seen and examined. Events noted, notes reviewed, Denies any further dyspnea, Denies any chest pain, Reports persistent cough but improved Echocardiography performed yesterday revealed overall preserved left ventricular systolic function, bi-atrial dilatation, mild mitral valve regurgitation, mild to moderate tricuspid valve regurgitation Medications: Current Medications Acetaminophen (Tylenol -) 650 mg PO Q6H PRN PRN Reason: PAIN Albuterol Sulfate (Ventolin Hfa Inhaler -) 1 puff IH QIDR PRN PRN Reason: SHORTNESS OF BREATH Allopurinol (Zyloprim -) 100 mg PO DAILY [facility] Last Admin: 05/26/16 09:44 Dose: 100 mg Ascorbic Acid (Vitamin C -) 500 mg PO DAILY [facility] Last Admin: 05/26/16 09:44 Dose: 500 mg Cholecalciferol (Vitamin D3 -) 5,000 unit PO DAILY [facility] Last Admin: 05/26/16 09:44 Dose: 5,000 unit Docusate Sodium (Colace -) 100 mg PO HS [facility] Last Admin: 05/25/16 21:43 Dose: 100 mg Guaifenesin (Robitussin Dm -) 10 ml PO Q6H PRN PRN Reason: COUGH Last Admin: 05/26/16 06:12 Dose: 10 ml Ceftriaxone Sodium (Rocephin 1gm Ivpb (Pre-Docked)) 50 mls @ 100 mls/hr IVPB DAILY [facility] Last Admin: 05/26/16 09:42 Dose: 100 mls/hr Lactobacillus Acidophilus (Bacid -) 1 tab PO DAILY [facility] Last Admin: 05/26/16 09:43 Dose: 1 tab Loratadine (Claritin -) 10 mg PO DAILY [facility] Losartan Potassium (Cozaar -) 50 mg PO BID [facility] Last Admin: 05/26/16 09:44 Dose: 50 mg Magnesium Oxide (Mag-Ox -) 400 mg PO BID [facility] Last Admin: 05/26/16 09:44 Dose: 400 mg Metoprolol Tartrate (Lopressor -) 50 mg PO TID [facility] Last Admin: 05/26/16 06:12 Dose: 50 mg Mometasone Furoate (Asmanex 110mcg -) 1 puff IH DAILY [facility] Last Admin: 05/26/16 09:43 Dose: 1 puff Non-Formulary Medication (Methenamine Hippurate) 1 gm PO BID [facility] Non-Formulary Medication (Triamcinolone Acetonide [Nasacort]) 10.8 ml NS DAILY [facility] Prednisone (Deltasone -) 30 mg PO DAILY [facility] Last Admin: 05/26/16 09:44 Dose: 30 mg Pyridoxine HCl (Vitamin B6 -) 50 mg PO DAILY [facility] Last Admin: 05/26/16 09:43 Dose: 50 mg Tamsulosin HCl (Flomax -) 0.4 mg PO DAILY@0830 [facility] Last Admin: 05/26/16 09:43 Dose: 0.4 mg Thiamine HCl (Vitamin B1 -) 100 mg PO DAILY [facility] Last Admin: 05/26/16 09:44 Dose: 100 mg Triamcinolone Acetonide (Aristocort 0.1% Cream -) 0 applic TP PRN [facility] Warfarin Sodium (Coumadin -) 4 mg PO DAILY@1800 [facility] Last Admin: 05/25/16 17:27 Dose: 4 mg Vital Signs: Last Vital Signs Temp Pulse Resp BP Pulse Ox 98.2 F 82 20 114/67 96 05/26/16 05:45 05/26/16 10:00 05/26/16 10:00 05/26/16 10:00 05/25/16 21:00 Constitutional: No Distress Neck: Supple Negative JVD No Bruit Respiratory: Clear to A&P Bilaterally Cardiovascular: S1 S2 Irregular Irregular Gastrointestinal: Soft Benign Normal Bowel Sounds Ext: Trace Bilateral Edema Intact Distal Pulses No Calf Tenderness Labs: CBC, BMP 05/22/16 06:00 05/26/16 06:00 INR, PTT INR 2.67 (0.82-1.09) H 05/26/16 06:00 Assessment/Plan Assessment/Plan: 1. Acute on chronic class I-II NYHA classification LV failure related to diastolic LV dysfunction, resolved 2. Probable acute bronchitis, resolving 3. CAD non-obstructive CAD angina pectoris 4. Permanent atrial fibrillation on A/C with Coumadin therapeutic INR 5. Sick Sinus Syndrome post PPM 6. HTN 7. Hypercholesterolemia 8. Degenerative joint disease 9. CKD 10. History of bilateral nephrolithiasis 11. Chronic anemia 12. Chronic thrombocytopenia PLAN: 1. Continue Lopressor 2. Continue Cozaar with caution, monitor renal function closely 3. A/C with Coumadin as per INR, maintain 2-3 4. Continue Lasix with caution, monitor renal function closely 5. Antibiotics as per the primary team Steve Nixon MD
[2016-05-26] MEDS: LORATADINE 10 MG TABLET PO SCH (14:37)
[2016-05-26] MEDS: WARFARIN NA 2 MG TABLET (UD) PO SCH (17:22)
[2016-05-26] MEDS: DOCUSATE SODIUM 100 MG CAPSULE (FP) PO SCH (21:35)
[2016-05-27] MEDS: guaiFENesin/D-METHORPHAN HB 10 ML UNIT-DOSE CUPS PO PRN ×2 (01:45→08:10)
[2016-05-27] MEDS: METOPROLOL TARTRATE 50 MG TABLET (FP) PO SCH (05:53)
[2016-05-27 06:36] VITALS: TEMP 98.2
[2016-05-27 07:51] LABS: CALCIUM 8.2 mg/dL (8.5-10.1); CREATININE 2.1 mg/dL (0.7-1.3)
[2016-05-27] MEDS ORDERED: PT OWN MED DRAWER 7, Y5N ONE (08:06)
[2016-05-27 08:09] LABS: INR 2.87 (0.82-1.09); PROTHROMBIN TIME (PATIENT) 32.3 SEC (9.98-11.88)
[2016-05-27] MEDS: TAMSULOSIN HCL 0.4 MG CAP.ER.24H (FP) PO SCH (08:10)
[2016-05-27] MEDS: CEFTRIAXONE 50 ML IVPB SCH (08:59)
[2016-05-27] MEDS: PYRIDOXINE HCL (B-6) 50 MG TABLET (FP) PO SCH (09:06)
[2016-05-27] MEDS: THIAMINE HCL 100 MG TABLET (FP) PO SCH (09:06)
[2016-05-27] MEDS: predniSONE 10 MG TABLET (UD) PO SCH (09:07)
[2016-05-27] MEDS: LACTOBACILLUS ACIDOPHILUS 1 EACH TAB (FP) PO SCH (09:07)
[2016-05-27] MEDS: MAGNESIUM OXIDE 400 MG TABLET (FP) PO SCH (09:07)
[2016-05-27] MEDS: ASCORBIC ACID 500 MG TABLET (FP) PO SCH (09:08)
[2016-05-27] MEDS: ALLOPURINOL 100 MG TABLET (FP) PO SCH (09:08)
[2016-05-27] MEDS: CHOLECALCIFEROL (VITAMIN D3) 1,000 UNIT TABLET (FP) PO SCH (09:08)
[2016-05-27] MEDS: LORATADINE 10 MG TABLET PO SCH (09:08)
[2016-05-27] MEDS: LOSARTAN POTASSIUM 50 MG TABLET (FP) PO SCH (09:09)
[2016-05-27] MEDS: MOMETASONE FUROATE 110 MCG/IH INHALER IH SCH (09:09)
[2016-05-27 10:57] VITALS: BP 142/80; PULSE 70
--- NOTE | 2016-05-27 12:30 | DS ---
[id number] Rate 18 05/27/16 10:00 Blood Pressure 142/80 05/27/16 10:00 O2 Sat by Pulse Oximetry (%) 98 05/27/16 09:00 Findings/Remarks: Pt. w/o SOB, CP Constitutional: Yes: No Distress, Calm Cardiovascular: Yes: Regular Rate and Rhythm, S1, S2 Respiratory: Yes: Regular, CTA Bilaterally, Other (coarse BS) Gastrointestinal: Yes: Normal Bowel Sounds, Soft. No: Tenderness Edema: No Neurological: Yes: Alert, Oriented Labs: CBC, BMP 05/22/16 06:00 05/27/16 06:20 Discharge Summary Reason For Visit: ACUTE ON CHRONIC CHF,ATRIAL FIB,OBST BRONCHITIS Current Active Problems A-fib (Acute) CHF (congestive heart failure) (Acute) COPD exacerbation (Acute) Congestive heart failure with LV diastolic dysfunction, NYHA class 2 (Acute) Hospital Course: Pt. came to ER c/o SOB, not better with nebulizer. Pt. was admitted and treated for CHF and COPD exacerbation, Pt. was seen by Cardio (Dr. Marquez), and Pulmonary ( Dr. Gonzalez). Pt. was on IV Lasix, IV Solumedrol; he improved slowly. Pt . to be DC'ed home with outpt. office f/u. Condition: Good - Instructions Referrals: Enrike Rivero MD [Primary Care Provider] - (this week) Saurabh Longoria MD [Staff Physician] - Aleksey Marquez MD [Staff Physician] - Rachel Franz MD [Staff Physician] - Disposition: HOME - Home Medications Comprehensive Discharge Medication List: Ambulatory Orders Albuterol Sulfate [Proair Respiclick] 90 mcg IH QID PRN 05/21/16 Allopurinol [Zyloprim -] 100 mg PO DAILY 05/21/16 Ascorbic Acid [Vitamin C] 500 mg PO DAILY 05/21/16 Cholecalciferol (Vitamin D3) [Vitamin D3] 5,000 unit PO DAILY 05/21/16 Docusate Sodium [Colace -] 0 mg PO HS 05/21/16 Iron 325 mg PO DAILY 05/21/16 L.acidoph,Paracasei, B.lactis [Probiotic] 1 each PO DAILY 05/21/16 Losartan Potassium 50 mg PO BID 05/21/16 Methenamine Hippurate [Hiprex [Nf] -] 1 gm PO BID 05/21/16 Metoprolol Tartrate [Lopressor] 50 mg PO TID 05/21/16 Mometasone Furoate [Asmanex 110Mcg -] 1 inh IH DAILY 05/21/16 Pyridoxine HCl [Vitamin B6] 50 mg PO DAILY 05/21/16 Tamsulosin HCl [Flomax] 0.4 mg PO DAILY 05/21/16 Thiamine HCl [Vitamin B1] 100 mg PO DAILY 05/21/16 Triamcinolone Acetonide 80 gm TP PRN 05/21/16 Triamcinolone Acetonide [Nasacort] 10.8 ml NS DAILY 05/21/16 Ubidecarenone [Coq-10] 100 mg PO DAILY 05/21/16 Vitamin E 400 unit PO DAILY 05/21/16 Warfarin Sodium [Coumadin] 4.5 mg PO HS 05/21/16
--- NOTE | 2016-05-27 12:58 | PN ---
Progress Note (short form) - Note Progress Note: Overall appears improved. Did not desaturate when he ambulated. Minimal white/clear sputum. Intake & Output 05/24/16 05/25/16 05/26/16 05/27/16 23:59 23:59 23:59 23:59 Intake Total 1350 500 550 470 Output Total 1925 1300 1300 1100 Balance -575 -800 -750 -630 Weight 173 lb 9 oz 183 lb 184 lb 182 lb Last Vital Signs Temp Pulse Resp BP Pulse Ox 98.2 F 70 18 142/80 98 05/27/16 10:00 05/27/16 10:00 05/27/16 10:00 05/27/16 10:00 05/27/16 09:00 Active Medications Acetaminophen (Tylenol -) 650 mg PO Q6H PRN PRN Reason: PAIN Albuterol Sulfate (Ventolin Hfa Inhaler -) 1 puff IH QIDR PRN PRN Reason: SHORTNESS OF BREATH Allopurinol (Zyloprim -) 100 mg PO DAILY [facility] Last Admin: 05/27/16 09:08 Dose: 100 mg Ascorbic Acid (Vitamin C -) 500 mg PO DAILY [facility] Last Admin: 05/27/16 09:08 Dose: 500 mg Cholecalciferol (Vitamin D3 -) 5,000 unit PO DAILY [facility] Last Admin: 05/27/16 09:08 Dose: 5,000 unit Docusate Sodium (Colace -) 100 mg PO HS [facility] Last Admin: 05/26/16 21:35 Dose: 100 mg Guaifenesin (Robitussin Dm -) 10 ml PO Q6H PRN PRN Reason: COUGH Last Admin: 05/27/16 08:10 Dose: 10 ml Ceftriaxone Sodium (Rocephin 1gm Ivpb (Pre-Docked)) 50 mls @ 100 mls/hr IVPB DAILY [facility] Last Admin: 05/27/16 08:59 Dose: 100 mls/hr Lactobacillus Acidophilus (Bacid -) 1 tab PO DAILY [facility] Last Admin: 05/27/16 09:07 Dose: 1 tab Loratadine (Claritin -) 10 mg PO DAILY [facility] Last Admin: 05/27/16 09:08 Dose: 10 mg Losartan Potassium (Cozaar -) 50 mg PO BID [facility] Last Admin: 05/27/16 09:09 Dose: 50 mg Magnesium Oxide (Mag-Ox -) 400 mg PO BID [facility] Last Admin: 05/27/16 09:07 Dose: 400 mg Metoprolol Tartrate (Lopressor -) 50 mg PO TID [facility] Last Admin: 05/27/16 05:53 Dose: 50 mg Mometasone Furoate (Asmanex 110mcg -) 1 puff IH DAILY [facility] Last Admin: 05/27/16 09:09 Dose: 1 puff Non-Formulary Medication (Methenamine Hippurate) 1 gm PO BID [facility] Non-Formulary Medication (Triamcinolone Acetonide [Nasacort]) 10.8 ml NS DAILY [facility] Prednisone (Deltasone -) 30 mg PO DAILY [facility] Last Admin: 05/27/16 09:07 Dose: 30 mg Pyridoxine HCl (Vitamin B6 -) 50 mg PO DAILY [facility] Last Admin: 05/27/16 09:06 Dose: 50 mg Tamsulosin HCl (Flomax -) 0.4 mg PO DAILY@0830 [facility] Last Admin: 05/27/16 08:10 Dose: 0.4 mg Thiamine HCl (Vitamin B1 -) 100 mg PO DAILY [facility] Last Admin: 05/27/16 09:06 Dose: 100 mg Triamcinolone Acetonide (Aristocort 0.1% Cream -) 0 applic TP PRN [facility] Warfarin Sodium (Coumadin -) 4 mg PO DAILY@1800 [facility] Last Admin: 05/26/16 17:22 Dose: 4 mg Constitutional: Yes: No Distress, Calm Cardiovascular: Yes: Regular Rate and Rhythm, S1, S2 Respiratory: Yes: Few scattered rhonchi, no wheeze Gastrointestinal: Yes: Normal Bowel Sounds, Soft. No: Palpable Mass, Tenderness Edema: No Neurological: Yes: Alert, Oriented Labs: Laboratory Results - last 24 hr 05/27/16 05/27/16 06:20 06:20 INR 2.87 H Sodium 140 Potassium 3.7 Chloride 102 Carbon Dioxide 27 Anion Gap 11 BUN 52 H Creatinine 2.1 H Random Glucose 78 D Calcium 8.2 L Problem List - Problems (1) COPD exacerbation Assessment/Plan: Code(s): J44.1 - CHRONIC OBSTRUCTIVE PULMONARY DISEASE W (ACUTE) EXACERBATION (2) CHF (congestive heart failure) Assessment/Plan: Code(s): I50.9 - HEART FAILURE, UNSPECIFIED Qualifiers: Congestive heart failure type: diastolic Congestive heart failure chronicity: acute on chronic Qualified Code(s): I50.33 - Acute on chronic diastolic (congestive) heart failure (3) A-fib Assessment/Plan: Code(s): I48.91 - UNSPECIFIED ATRIAL FIBRILLATION Qualifiers: Atrial fibrillation type: permanent Qualified Code(s): I48.2 - Chronic atrial fibrillation (4) Chronic kidney disease Assessment/Plan: Code(s): N18.9 - CHRONIC KIDNEY DISEASE, UNSPECIFIED Qualifiers: Chronic kidney disease stage: stage 2 (mild) Qualified Code(s): N18.2 - Chronic kidney disease, stage 2 (mild) (5) SSS (sick sinus syndrome) Code(s): I49.5 - SICK SINUS SYNDROME (6) History of pacemaker Code(s): Z95.0 - PRESENCE OF CARDIAC PACEMAKER (7) Hyperlipidemia Code(s): E78.5 - HYPERLIPIDEMIA, UNSPECIFIED Qualifiers: Hyperlipidemia type: pure hypercholesterolemia (8) Hypertension Code(s): I10 - ESSENTIAL (PRIMARY) HYPERTENSION Qualifiers: Hypertension type: essential hypertension Qualified Code(s): I10 - Essential (primary) hypertension (9) Urinary retention Code(s): R33.9 - RETENTION OF URINE, UNSPECIFIED Assessment/Plan Short course of Prednisone Cough syrup PRN BD TX PRN Coumadin No Pulmonary contraindication for D/C Dr Robbins
== END 2016-05-27 01:05 | disposition home or self-care (01) | DRG 291 ==
LOC: JER 07:07 → JERBED 11:42 → J6S 14:15 → OBSVTOIN 20:58
PROVIDERS: ADMIT Specialist; ATTEND Specialist
DX: I13.0 Hypertensive heart and chronic kidney disease with heart failure and stage 1 through stage 4 chronic kidney disease, or unspecified chronic kidney disease (principal); I50.33 Acute on chronic diastolic (congestive) heart failure; J44.0 Chronic obstructive pulmonary disease with (acute) lower respiratory infection; J44.1 Chronic obstructive pulmonary disease with (acute) exacerbation; I48.91 Unspecified atrial fibrillation; Z79.01 Long term (current) use of anticoagulants; N18.2 Chronic kidney disease, stage 2 (mild); E78.5 Hyperlipidemia, unspecified; Z85.46 Personal history of malignant neoplasm of prostate; N40.0 Benign prostatic hyperplasia without lower urinary tract symptoms; J20.9 Acute bronchitis, unspecified; I25.119 Atherosclerotic heart disease of native coronary artery with unspecified angina pectoris; Z95.5 Presence of coronary angioplasty implant and graft; Z95.0 Presence of cardiac pacemaker; M51.37 Other intervertebral disc degeneration, lumbosacral region; D64.9 Anemia, unspecified; D69.6 Thrombocytopenia, unspecified; R33.9 Retention of urine, unspecified
CPT/HCPCS: 36415; 71010-TC; 80048; 80053; 82550; 83605; 83735; 83880; 84443; 84484; 85025; 85027; 85610; 87040; 93005; 93010; 93306-TC; 94761; 99285-25; G0378

== ENCOUNTER 2016-06-03 09:55 | Inpatient (IN) | payer OTHER, BC ==
[2016-06-03 10:03] VITALS: BMI 29.7
--- NOTE | 2016-06-03 10:44 | PDOC ---
History of Present Illness - History of Present Illness Initial Comments: 06/03/16 11:34 The patient is an 86 year old male with a significant past medical history of COPD, A-fib, ( s/p pacemaker) CAD, HTN, HLD, sick sinus syndrome, prostate CA, diverticulitis , nephrolithiasis and prior episodes of enterococcal urosepsis and pyelonephritis , presents to the emergency department with complaint of shortness of breath since this morning. Patient recently discharged a week ago from the hospital for COPD exacerbation. Placed on Prednisone 20 for 3 days, after following up with Dr. Montalvo and his Prednisone was increased to 40. Over the past weekend he was feeling better however this morning when he woke up was feeling significantly worse. Patient reports wheezing and a productive cough. Patient reports exercises intolerance. He reports chest tightness. He reports nasal congestions. Denies fever or chills. No reports on nausea or vomiting. Jewel Stripper: Steve Nixon Office: PCP: Enrike Rivero Office: Power Shear Operator: Casimiro Montalvo Office: ENT: Gt Bailey Office: <Hai Angel - Last Filed: 06/03/16 11:52> - General History Source: Patient Exam Limitations: No Limitations <Ying Burr - Last Filed: 06/04/16 19:43> - General Chief Complaint: Shortness of Breath Stated Complaint: SOB Time Seen by Provider: 06/03/16 10:14 Past History <Hai Angel - Last Filed: 06/03/16 11:52> - Past Medical History Anemia: No Asthma: No Cancer: Yes (PROSTATE,RADIATION,SEEDS) Cardiac Disorders: Yes (a.fib) CVA: No COPD: Yes CHF: No Dementia: No Diabetes: No GI Disorders: Yes (diverticulosis) Disorders: Yes (NON FUNCTIONING LEFT KIDNEY) HTN: Yes Hypercholesterolemia: Yes (DIET CONTROLLED) Liver Disease: No Seizures: No Thyroid Disease: No - Surgical History Abdominal Surgery: Yes (HERNIA-R INGUINAL) Appendectomy: Yes () Cardiac Surgery: Yes (pacemaker-1999,REPLACED 2012) Cholecystectomy: No Lung Surgery: No Neurologic Surgery: No Orthopedic Surgery: Yes (TOTAL L KNEE REPLACEMENT-2001,TOTAL LEFT HIP REPLACEMENT-2003) - Immunization History Immunization Up to Date: Yes - Psycho/Social/Smoking Cessation Hx Anxiety: No Suicidal Ideation: No Smoking Status: Yes Smoking History: Former smoker Have you smoked in the past 12 months: No Number of Cigarettes Smoked Daily: 0 If you are a former smoker, when did you quit?: 20YRS AGO Cigars Per Day: 0 Information on smoking cessation initiated: No Hx Alcohol Use: No Drug/Substance Use Hx: No Substance Use Type: None Hx Substance Use Treatment: No <Ying Burr - Last Filed: 06/04/16 19:43> - Past Medical History Allergies/Adverse Reactions: Allergies Allergy/AdvReac Type Severity Reaction Status Date / Time azithromycin AdvReac Intermediate HEADACHE Verified 06/03/16 09:58 Home Medications: Ambulatory Orders Albuterol Sulfate [Proair Respiclick] 90 mcg IH QID PRN 05/21/16 Allopurinol [Zyloprim -] 100 mg PO DAILY 05/21/16 Ascorbic Acid [Vitamin C] 500 mg PO DAILY 05/21/16 Cholecalciferol (Vitamin D3) [Vitamin D3] 5,000 unit PO DAILY 05/21/16 Docusate Sodium [Colace -] 0 mg PO HS 05/21/16 Iron 325 mg PO DAILY 05/21/16 L.acidoph,Paracasei, B.lactis [Probiotic] 1 each PO DAILY 05/21/16 Losartan Potassium 50 mg PO BID 05/21/16 Methenamine Hippurate [Hiprex [Nf] -] 1 gm PO BID 05/21/16 Metoprolol Tartrate [Lopressor] 50 mg PO TID 05/21/16 Mometasone Furoate [Asmanex 110Mcg -] 1 inh IH BID 05/21/16 Pyridoxine HCl [Vitamin B6] 50 mg PO DAILY 05/21/16 Tamsulosin HCl [Flomax] 0.4 mg PO DAILY 05/21/16 Thiamine HCl [Vitamin B1] 100 mg PO DAILY 05/21/16 Triamcinolone Acetonide 80 gm TP PRN 05/21/16 Triamcinolone Acetonide [Nasacort] 10.8 ml NS DAILY 05/21/16 Ubidecarenone [Coq-10] 100 mg PO DAILY 05/21/16 Vitamin E 400 unit PO DAILY 05/21/16 Warfarin Sodium [Coumadin] 4.5 mg PO HS 05/21/16 Prednisone [Deltasone -] 40 mg PO DAILY 06/03/16 Review of Systems - Review of Systems Able to Perform ROS?: Yes Comments:: 06/03/16 11:35 GENERAL/CONSTITUTIONAL: No fever or chills. No weakness. HEAD, EYES, EARS, NOSE AND THROAT: Yes, nasal congestion. No change in vision. No ear pain or discharge. No sore throat. CARDIOVASCULAR: No chest pain RESPIRATORY: Yes shortness of breath, Yes cough, Yes chest tightness, Yes wheezing, No hemoptysis. GASTROINTESTINAL: No nausea, vomiting, diarrhea or constipation. GENITOURINARY: No dysuria, frequency, or change in urination. MUSCULOSKELETAL: No joint or muscle swelling or pain. No neck or back pain. SKIN: No rash NEUROLOGIC: No headache, vertigo, loss of consciousness, or change in strength/ sensation. ENDOCRINE: No increased thirst. No abnormal weight change. HEMATOLOGIC/LYMPHATIC: No anemia, easy bleeding, or history of blood clots. ALLERGIC/IMMUNOLOGIC: No hives or skin allergy. Is the patient limited Nepali proficient: No <Hai Angel - Last Filed: 06/03/16 11:52> *Physical Exam - Vital Signs Last Vital Signs Temp Pulse Resp BP Pulse Ox 97.7 F 85 26 H 161/84 99 06/03/16 09:59 06/03/16 09:59 06/03/16 09:59 06/03/16 09:59 06/03/16 09:59 - Physical Exam Comments: 06/03/16 11:52 GENERAL: The patient is in no acute distress but breathing with pursed lips. HEAD: Normal with no signs of trauma. EYES: PERRLA, EOMI, sclera anicteric, conjunctiva clear. ENT: Ears normal, nares patent, oropharynx clear without exudates. Moist mucous membranes. NECK: Normal range of motion, supple without lymphadenopathy, JVD, or masses. LUNGS: Scattered rhonchi. Breath sounds equal. No wheezes, and no crackles. HEART:Irregularly irregular , normal S1 and S2 without murmur, rub or gallop. ABDOMEN: Soft, nontender, normoactive bowel sounds. No guarding, no rebound. No masses palpable. EXTREMITIES: Normal range of motion, no edema. No clubbing or cyanosis. No erythema, or tenderness. NEUROLOGICAL: Cranial nerves II through XII grossly intact. Normal speech. No focal neurological deficits. MUSCULOSKELETAL: Back non-tender to palpation, no CVA tenderness SKIN: Warm, Dry, normal turgor, no rashes or lesions noted. <Hai Angel - Last Filed: 06/03/16 11:52> - Vital Signs Last Vital Signs Temp Pulse Resp BP Pulse Ox 97.7 F 85 26 H 161/84 99 06/03/16 09:59 06/03/16 09:59 06/03/16 09:59 06/03/16 09:59 06/03/16 09:59 <Ying Burr - Last Filed: 06/04/16 19:43> Heart Score/ECG Review #1 ECG reviewed & interpreted by me at: 10:44 06/03/16 10:44 Twelve-lead EKG was performed and reviewed by me. Afib with rate of 73bpm. Left axis deviation. Intervals: QRS:64ms, QTc:370ms, (+) PVC, No ST elevations or depressions <Ying Burr - Last Filed: 06/04/16 19:43> ED Treatment Course - LABORATORY CBC & Chemistry Diagram: 06/03/16 11:30 06/03/16 11:30 - RADIOLOGY Radiology Studies Ordered: 06/03/16 11:44 CHEST X RAY Impression: Interval subsegmental atelectasis in the right lung base Reported by Fifi Cordero <Hai Angel - Last Filed: 06/03/16 11:52> - LABORATORY CBC & Chemistry Diagram: 06/04/16 06:30 06/04/16 06:30 - RADIOLOGY Radiology Studies Ordered: Category Date Time Status CHEST X-RAY PORTABLE* [RAD] Stat Radiology 06/03/16 10:41 Ordered <Ying Burr - Last Filed: 06/04/16 19:43> Medical Decision Making - Critical Care Time Total Critical Care Time (minutes): 35 Critical Care Statement: The care of this patient involved high complexity decision making to prevent further life threatening deterioration of the patient 's condition and/or to evalute & treat vital organ system(s) failure or risk of failure. - Medical Decision Making 06/03/16 10:43 A portion of this note was documented by scribe services under my direction. I have reviewed the details of the note, within reason, and agree with the documentation with the following case summary and management plan written by me. Nursing documentation reviewed and incorporated into medical decision making 06/03/16 12:30 86 yo M presenting to the ER with a complaint of shortness of breath No chest pain (+) Cough No fevers or chills Pt s/p recent discharge for similar symptoms He states upon discharge he actually felt much better His prednisone dosage decreased to 20mg daily Subsequent to this, he noted increase shortness of breath Pt denies chest pain On examination: Pt speaking with pursed lips Scattered Rhonchi No lower extremity edema 06/03/16 12:31 Laboratory Tests 05/30/16 06/03/16 06/03/16 10:00 11:30 12:05 WBC 14.8 H D 10.4 H Hgb 12.9 12.2 Hct 38.9 36.7 Plt Count 108 L D 96 L ABG pH 7.46 H ABG pCO2 at Pt Temp 30.3 L ABG pO2 at Pt Temp 82.9 ABG HCO3 21.1 L CXR: increased atalectasis Pt given Solumedrol, duo nebs Will give abx per PMDs recommendation Case reviewed with Dr rivero Clinical impression: COPD exacerbation <Ying Brur - Last Filed: 06/04/16 19:43> *DC/Admit/Observation/Transfer - Attestations Scribe Attestion: 06/03/16 11:38 Documentation prepared by Hai Angel, acting as lead medical technologist for Ying Burr MD <Hai Angel - Last Filed: 06/03/16 11:52> - Discharge Dispostion Admit: Yes <Ying Burr - Last Filed: 06/04/16 19:43> Diagnosis at time of Disposition: COPD exacerbation - Discharge Dispostion Condition at time of disposition: Stable - Referrals
[2016-06-03 11:41] LABS: MCH 28.9 pg (25.7-33.7); MCHC 33.2 g/dl (32.0-35.9); MEAN CELL VOLUME 87.1 fl (80-96); MEAN PLT VOLUME 9.4 fl (7.5-11.1); PLATELET COUNT 96 K/MM3 (134-434); RDW 16.7 % (11.9-15.9); WHITE BLOOD COUNT 10.4 K/mm3 (4.0-10.0)
[2016-06-03] MEDS ORDERED: ALBUTEROL SO4 2.5/IPRATROPIUM 0.5 INH SOL 3 ML VIAL.NEB. NEB ONE ×2 (11:41→11:55)
[2016-06-03] MEDS ORDERED: methylPREDNISolone NA SUCC 125 MG/2 ML VIAL IVPB ONE (11:41)
[2016-06-03] MEDS ORDERED: methylPREDNISolone NA SUCC 125 MG/2 ML VIAL ONE (11:55)
[2016-06-03 12:11] LABS: ARTERIAL BLD GAS O2 SATURATION 96.9 % (90-98.9); ARTERIAL BLOOD GAS BASE EXCESS -1.5 meq/l (-2-2); ARTERIAL BLOOD GAS HCO3 21.1 meq/L (22-26); ARTERIAL BLOOD GAS PO2 82.9 mmHg (68-100); ARTERIAL BLOOD GAS pH 7.46 (7.35-7.45)
[2016-06-03 12:12] LABS: ALLENS TEST POSITIVE; ART PUNCT SITE RIGHT BRACHIAL; LPM/O2% N; PT. ON O2? NO; TYPE OF O2 R/A
[2016-06-03] MEDS ORDERED: VANCOMYCIN 1,000 MG in DEXTROSE 5%-WATER - 250 ML IVPB ONE (12:35)
[2016-06-03] MEDS ORDERED: PIPERACILLIN/TAZOB 3.375 GM/50 ML PRE-DOCKED IVPB ONE (13:17)
[2016-06-03] MEDS ORDERED: PIPERACILLIN/TAZOB 3.375 GM 50 ML IVPB ONE (13:22)
[2016-06-03 13:38] LABS: METAMYELOCYTE 2 % (0-2); PLATELET ESTIMATE DECREASED (NORMAL)
[2016-06-03 13:47] LABS: ALBUMIN 3.5 g/dl (3.4-5.0); ANION GAP 12 (8-16); BILIRUBIN,TOTAL 0.6 mg/dL (0.2-1.0); CALCIUM 8.3 mg/dL (8.5-10.1); CO2 25 mmol/L (21-32); COCKROFT - GAULT 39.84; CREATININE 1.6 mg/dL (0.7-1.3); GLUCOSE,RANDOM 80 mg/dL (74-106); SGOT/AST 13 U/L (15-37); SGPT/ALT 30 U/L (12-78)
[2016-06-03 13:50] LABS: ALK PHOS 76 U/L (45-117); TROPONIN I < 0.02 ng/ml (0.00-0.05)
[2016-06-03] MEDS ORDERED: VANCOMYCIN 1 GRAM (PRE-DOCKED) 250 ML IVPB ONE (13:57)
[2016-06-03] MEDS: FLUTICASONE PROP 0.05% 16 GM NASAL SPRAY NS SCH (21:00)
[2016-06-03] MEDS ORDERED: PIPERACILLIN/TAZOB 3.375 GM/50 ML PRE-DOCKED IVPB SCH (22:00)
[2016-06-03] MEDS ORDERED: WARFARIN SODIUM 4.5 MG PO SCH (22:00)
[2016-06-03] MEDS: DOCUSATE SODIUM 100 MG CAPSULE (FP) PO SCH (23:26)
[2016-06-03] MEDS: methylPREDNISolone NA SUCC 40 MG/1 ML VIAL IVPB SCH (23:26)
[2016-06-03] MEDS: LOSARTAN POTASSIUM 50 MG TABLET (FP) PO SCH (23:26)
--- NOTE | 2016-06-03 23:51 | HP ---
Admitting History and Physical - Primary Care Physician PCP: Enrike Rivero - Admission Chief Complaint: SOB History of Present Illness: Pt. was recovering form CHF and COPD exacebation, improving until this AM when starting coughing and feeling SOB; pt came to ER, found to have PNA and COPD exacerbation. - Past Medical History Cardiovascular: Yes: AFIB (on AC), CAD, HTN, Hyperlipdemia, Other (SSS with PPM) Pulmonary: Yes: COPD Renal/: Yes: BPH, Cancer (prostate), Renal Calculi, Other (urinary retention) Heme/Onc: Yes: Cancer (prostate) - Past Surgical History Past Surgical History: Yes: Appendectomy, Hernia Repair, Joint Replacement - Smoking History Smoking history: Former smoker Have you smoked in the past 12 months: No Aproximately how many cigarettes per day: 0 If you are a former smoker, when did you quit?: 20YRS AGO - Alcohol/Substance Use Hx Alcohol Use: No History of Substance Use: reports: None - Social History ADL: Independent History of Recent Travel: No Home Medications - Allergies Allergies/Adverse Reactions: Allergies Allergy/AdvReac Type Severity Reaction Status Date / Time azithromycin AdvReac Intermediate HEADACHE Verified 06/03/16 09:58 - Home Medications Home Medications: Ambulatory Orders Albuterol Sulfate [Proair Respiclick] 90 mcg IH QID PRN 05/21/16 Allopurinol [Zyloprim -] 100 mg PO DAILY 05/21/16 Ascorbic Acid [Vitamin C] 500 mg PO DAILY 05/21/16 Cholecalciferol (Vitamin D3) [Vitamin D3] 5,000 unit PO DAILY 05/21/16 Docusate Sodium [Colace -] 0 mg PO HS 05/21/16 Iron 325 mg PO DAILY 05/21/16 L.acidoph,Paracasei, B.lactis [Probiotic] 1 each PO DAILY 05/21/16 Losartan Potassium 50 mg PO BID 05/21/16 Methenamine Hippurate [Hiprex [Nf] -] 1 gm PO BID 05/21/16 Metoprolol Tartrate [Lopressor] 50 mg PO TID 05/21/16 Mometasone Furoate [Asmanex 110Mcg -] 1 inh IH BID 05/21/16 Pyridoxine HCl [Vitamin B6] 50 mg PO DAILY 05/21/16 Tamsulosin HCl [Flomax] 0.4 mg PO DAILY 05/21/16 Thiamine HCl [Vitamin B1] 100 mg PO DAILY 05/21/16 Triamcinolone Acetonide 80 gm TP PRN 05/21/16 Triamcinolone Acetonide [Nasacort] 10.8 ml NS DAILY 05/21/16 Ubidecarenone [Coq-10] 100 mg PO DAILY 05/21/16 Vitamin E 400 unit PO DAILY 05/21/16 Warfarin Sodium [Coumadin] 4.5 mg PO HS 05/21/16 Prednisone [Deltasone -] 40 mg PO DAILY 06/03/16 Review of Systems - Review of Systems Constitutional: denies: Chills, Fever Eyes: denies: Blurred Vision, Double Vision HENT: denies: Ear Discharge, Ear Pain, Gingival Bleeding, Nasal Congestion, Throat Pain Neck: denies: Decreased ROM, Pain on Movement, Stiffness Cardiovascular: reports: Shortness of Breath. denies: Chest Pain, Edema, Palpitations Respiratory: reports: Cough, SOB, Wheezing. denies: Hemoptysis Gastrointestinal: denies: Abdominal Pain, Diarrhea, Nausea, Vomiting Genitourinary: denies: Burning, Discharge, Dysuria Musculoskeletal: denies: Back Pain, Joint Swelling, Muscle Pain Integumentary: denies: Bruising, Erythema, Pruritis, Rash Neurological: denies: Change in LOC, Confusion, Syncope, Tremors Endocrine: denies: Excessive Sweating, Intolerance to Cold Hematology/Lymphatic: denies: Easily Bruised, Excessive Bleeding Psychiatric: denies: Anxiety, Depression Physical Examination Vital Signs: Vital Signs Temperature 97.9 F 06/03/16 17:59 Pulse Rate 74 06/03/16 17:59 Respiratory Rate 19 06/03/16 17:59 Blood Pressure 146/91 06/03/16 17:59 O2 Sat by Pulse Oximetry (%) 95 06/03/16 17:59 Constitutional: Yes: No Distress, Calm Eyes: Yes: Conjunctiva Clear, EOM Intact, PERRL HENT: Yes: Normocephalic. No: Epistaxis, Pharyngeal Erythema, Rhinnorhea Neck: Yes: Trachea Midline. No: Lymphadenopathy, Tenderness Cardiovascular: Yes: Pulse Irregular, S1, S2 Respiratory: Yes: Regular, Rhonchi, Wheezes Gastrointestinal: Yes: Normal Bowel Sounds, Soft. No: Tenderness, Tenderness, Rebound, Vomiting Renal/: No: Bladder Distention, CVA Tenderness - Left, CVA Tenderness - Right , Camp Present Musculoskeletal: No: Back Pain, Joint Stiffness, Joint Swelling Extremities: No: Cold, Cool, Cyanosis Edema: No Neurological: Yes: Alert, Oriented, Cran Nerves II-XII Intact Psychiatric: Yes: Alert. No: Agitated Labs: CBC, BMP 06/03/16 13:00 Imaging - Results Chest X-ray: Report Reviewed, Image Reviewed Problem List - Problems (1) Pneumonia Assessment/Plan: Start IV abtx Pulmonary consult. Consider repeate CXR (PA, LAT) vs chest CT ( for better image) Code(s): J18.9 - PNEUMONIA, UNSPECIFIED ORGANISM (2) COPD exacerbation Assessment/Plan: IV Solu-Medrol Code(s): J44.1 - CHRONIC OBSTRUCTIVE PULMONARY DISEASE W (ACUTE) EXACERBATION (3) A-fib Assessment/Plan: F/u INR; adjust Comadin as needed to keep INR 2 to 3 Code(s): I48.91 - UNSPECIFIED ATRIAL FIBRILLATION Qualifiers: Atrial fibrillation type: permanent Qualified Code(s): I48.2 - Chronic atrial fibrillation (4) CHF (congestive heart failure) Assessment/Plan: to monitor for pulmonary congestion Code(s): I50.9 - HEART FAILURE, UNSPECIFIED Qualifiers: Congestive heart failure type: diastolic Congestive heart failure chronicity: acute on chronic Qualified Code(s): I50.33 - Acute on chronic diastolic (congestive) heart failure (5) Urinary retention Assessment/Plan: self cath every 3 days. Code(s): R33.9 - RETENTION OF URINE, UNSPECIFIED Assessment/Plan AM labs.
[2016-06-04] MEDS: MOMETASONE FUROATE 110 MCG/IH INHALER IH SCH ×3 (00:32→23:00)
[2016-06-04] MEDS ORDERED: methylPREDNISolone NA SUCC 40 MG/1 ML VIAL ONE ×2 (02:38→09:05)
[2016-06-04] MEDS: methylPREDNISolone NA SUCC 40 MG/1 ML VIAL IVPB SCH ×4 (03:01→20:48)
[2016-06-04 07:52] LABS: MCH 29.1 pg (25.7-33.7); MCHC 33.8 g/dl (32.0-35.9); MEAN CELL VOLUME 86.1 fl (80-96); MEAN PLT VOLUME 9.6 fl (7.5-11.1); PLATELET COUNT 87 K/MM3 (134-434); RDW 16.1 % (11.9-15.9); WHITE BLOOD COUNT 8.5 K/mm3 (4.0-10.0)
[2016-06-04 08:15] LABS: ALBUMIN 3.3 g/dl (3.4-5.0); BILIRUBIN,TOTAL 0.5 mg/dL (0.2-1.0); CALCIUM 8.5 mg/dL (8.5-10.1); COCKROFT - GAULT 39.84; CREATININE 1.6 mg/dL (0.7-1.3)
--- NOTE | 2016-06-04 09:37 | PN ---
Progress Note, Physician Chief Complaint: feels a little better on IV steroids and nebs but still coughing and has white sputum - Current Medication List Current Medications: Active Medications Allopurinol (Zyloprim -) 100 mg PO DAILY [facility] Ascorbic Acid (Vitamin C -) 500 mg PO DAILY [facility] Cholecalciferol (Vitamin D3 -) 5,000 unit PO DAILY [facility] Docusate Sodium (Colace -) 100 mg PO HS [facility] Last Admin: 06/03/16 23:26 Dose: 100 mg Ferrous Sulfate (Feosol -) 325 mg PO DAILY [facility] Fluticasone Propionate (Flonase -) 1 spray NS DAILY [facility] Last Admin: 06/03/16 21:00 Dose: Not Given Losartan Potassium (Cozaar -) 50 mg PO BID [facility] Last Admin: 06/03/16 23:26 Dose: 50 mg Methylprednisolone Sodium Succinate (Solu-Medrol -) 40 mg IVPB Q6H-IV [facility] Last Admin: 06/04/16 09:13 Dose: 40 mg Mometasone Furoate (Asmanex 110mcg -) 1 puff IH BID [facility] Last Admin: 06/04/16 00:32 Dose: 1 puff Pyridoxine HCl (Vitamin B6 -) 50 mg PO DAILY [facility] Tamsulosin HCl (Flomax -) 0.4 mg PO DAILY [facility] Thiamine HCl (Vitamin B1 -) 100 mg PO DAILY [facility] Warfarin Sodium 2.5 mg/ (Warfarin Sodium 2 mg) 4.5 mg PO DAILY@1800 [facility] - Objective Vital Signs: Vital Signs Temperature 97.9 F 06/04/16 05:36 Pulse Rate 98 H 06/04/16 05:36 Respiratory Rate 18 06/04/16 05:36 Blood Pressure 149/99 06/04/16 05:36 O2 Sat by Pulse Oximetry (%) 97 06/03/16 21:00 Constitutional: Yes: No Distress Eyes: Yes: Conjunctiva Clear HENT: Yes: Atraumatic Neck: Yes: Supple Cardiovascular: No: Regular Rate and Rhythm Respiratory: Yes: Rales, Wheezes Gastrointestinal: Yes: Soft. No: Distention, Tenderness Genitourinary: No: CVA Tenderness - Left, CVA Tenderness - Right Musculoskeletal: No: Joint Stiffness, Joint Swelling Extremities: No: Cold, Cool Edema: No Neurological: Yes: WNL, Alert, Oriented ...Motor Strength: WNL Psychiatric: Yes: WNL, Alert, Oriented. No: Agitated, Suicidal Ideation Labs: CBC, BMP 06/04/16 06:30 06/04/16 06:30 - ....Imaging Other: Report Reviewed Assessment/Plan The patient is an 86 year old male with a significant past medical history of COPD, A-fib, ( s/p pacemaker) CAD, HTN, HLD, sick sinus syndrome, prostate CA, diverticulitis , nephrolithiasis and prior episodes of enterococcal urosepsis and pyelonephritis , presents to the emergency department with complaint of shortness of breath and COPD exac. s/p recent discharge from the hospital for COPD exacerbation on po Prednisone but his breathing worsened; dmitted again with COPD exac and possible PNA/ atelectasis IV jazmine angel no ATB for now pumonary eval coumadin per INR fslls pfx d/w pt and staff
[2016-06-04] MEDS: FLUTICASONE PROP 0.05% 16 GM NASAL SPRAY NS SCH (10:40)
[2016-06-04] MEDS: PYRIDOXINE HCL (B-6) 100 MG TABLET PO SCH (10:42)
[2016-06-04] MEDS: THIAMINE HCL 100 MG TABLET (FP) PO SCH (10:42)
[2016-06-04] MEDS: CHOLECALCIFEROL (VITAMIN D3) 1,000 UNIT TABLET (FP) PO SCH (10:42)
[2016-06-04] MEDS: ASCORBIC ACID 500 MG TABLET (FP) PO SCH (10:42)
[2016-06-04] MEDS: FERROUS SO4 325 MG TABLET (FP) PO SCH (10:42)
[2016-06-04] MEDS: LOSARTAN POTASSIUM 50 MG TABLET (FP) PO SCH ×2 (10:42→22:59)
[2016-06-04] MEDS: ALLOPURINOL 100 MG TABLET (FP) PO SCH (10:42)
[2016-06-04] MEDS: TAMSULOSIN HCL 0.4 MG CAP.ER.24H (FP) PO SCH (10:42)
--- NOTE | 2016-06-04 13:07 | EKG ---
Test Reason : Blood Pressure : / mmHG Vent. Rate : 073 BPM Atrial Rate : 084 BPM P-R Int : 000 ms QRS Dur : 064 ms QT Int : 336 ms P-R-T Axes : 000 -52 -01 degrees QTc Int : 370 ms ATRIAL FIBRILLATION WITH OCCASIONAL VENTRICULAR PACED RHYTHM LEFT AXIS DEVIATION LOW VOLTAGE QRS ABNORMAL ECG WHEN COMPARED WITH ECG OF 21-MAY-2016 07:53, RHYTHM ABOVE CLINICAL CORRELATION IS RECOMMENDED Confirmed by KYRIE ELENA, PRASANNA ([id number]) on 06/04/2016 1:07:24 PM Referred By: Confirmed By:PRASANNA MITTAL MD
--- NOTE | 2016-06-04 17:09 | CONSULT ---
Consultation: REQUESTING PROVIDER: Dr. Michael Rivero CONSULT REQUEST: PULMONARY CONSULT - We have been asked to medically evaluate this patient for COPD exacerbation. HISTORY OF PRESENT ILLNESS: 86 y/o M w/PMH of Afib (on warfarin), CAD, HTN, HLD, COPD, BPH, Prostate ca presents to ER w/ c/o SOB and cough for last two days. Pt was recently at [facility] from 05/21/16 to 05/27/16 for COPD exacerbation and CHF exacerbation. Pt was improving daily after discharge until two days ago when pt developed SOB and cough with no sputum. Pt was discharged with 20 mg prednisone for 3 days and followed up w/Dr. Montalvo who increased prednisone to 40 mg. Yesterday, pt also noted that he felt as though he was wheezing after waking up and some chest tightness from difficulty in breathing. He denies chest pain, light-headedness, N/V/F/C, dysuria, sick contacts, recent travel. Pt has a history of smoking for approximately 40 years (quit 25 years ago). REVIEW OF SYSTEMS: CONSTITUTIONAL: Absent: fever, chills, diaphoresis, generalized weakness, malaise, loss of appetite, weight change HEENT: Absent: rhinorrhea, nasal congestion, throat pain, throat swelling, difficulty swallowing, mouth swelling, ear pain, eye pain, visual changes CARDIOVASCULAR: Absent: chest pain, syncope, palpitations, irregular heart rate, lightheadedness , peripheral edema RESPIRATORY: cough, sob, wheezing Absent: orthopnea, stridor, hemoptysis GASTROINTESTINAL: Absent: abdominal pain, abdominal distension, nausea, vomiting, diarrhea, constipation, melena, hematochezia GENITOURINARY: Absent: dysuria, frequency, urgency, hesitancy, hematuria, flank pain, genital pain MUSCULOSKELETAL: Absent: myalgia, arthralgia, joint swelling, back pain, neck pain SKIN: Absent: rash, itching, pallor HEMATOLOGIC/IMMUNOLOGIC: Absent: easy bleeding, easy bruising, lymphadenopathy, frequent infections ENDOCRINE: Absent: unexplained weight gain, unexplained weight loss, heat intolerance, cold intolerance NEUROLOGIC: Absent: headache, focal weakness or paresthesias, dizziness, unsteady gait, seizure, mental status changes, bladder or bowel incontinence PSYCHIATRIC: Absent: anxiety, depression, suicidal or homicidal ideation, hallucinations. PHYSICAL EXAMINATION Vital Signs - 24 hr 04/12/1006/03/16 06/04/16 17:59 21:00 02:00 Temperature 97.9 F 98.0 F 98.4 F Pulse Rate 108 H 99 H Pulse Rate [ 74 Apical] Respiratory 19 18 18 Rate Blood Pressure 142/88 145/78 Blood Pressure 146/91 [Right Arm] O2 Sat by Pulse 95 97 Oximetry (%) 06/04/16 06/04/16 06/04/16 05:36 07:44 13:40 Temperature 97.9 F 98.2 F Pulse Rate 98 H Pulse Rate [ 86 80 Apical] Respiratory 18 22 18 Rate Blood Pressure 149/99 Blood Pressure 157/80 150/80 [Right Arm] O2 Sat by Pulse 96 98 Oximetry (%) 06/04/16 15:30 Temperature 97.9 F Pulse Rate 111 H Pulse Rate [ Apical] Respiratory 20 Rate Blood Pressure 134/87 Blood Pressure [Right Arm] O2 Sat by Pulse Oximetry (%) GENERAL: Awake, alert, and fully oriented, in no acute distress. HEAD: Normal with no signs of trauma. EYES: extraocular movements intact, sclera anicteric, conjunctiva clear. No lid lag. EARS, NOSE, THROAT: Ears normal, nares patent, Moist mucous membranes. NECK: Normal range of motion LUNGS: b/l mild wheezing, no crackles HEART: Regular rate and rhythm, normal S1 and S2 without murmur, rub or gallop. ABDOMEN: Soft, nontender, not distended, normoactive bowel sounds, no guarding, no rebound, no masses. No hepatomegaly or splenomegaly. MUSCULOSKELETAL: Normal range of motion at all joints. No bony deformities or tenderness. UPPER EXTREMITIES: 2+ pulses, warm, well-perfused. No cyanosis. No clubbing. Cap refill <2 seconds. No peripheral edema. LOWER EXTREMITIES: 2+ pulses, warm, well-perfused. No calf tenderness. No peripheral edema. NEUROLOGICAL: Cranial nerves II-XII intact. Normal speech. Normal gait. PSYCHIATRIC: Cooperative. Good eye contact. Appropriate mood and affect. SKIN: Warm, dry, normal turgor, no rashes or lesions noted. Laboratory Results - last 24 hr 06/04/16 06/04/16 06/04/16 05:52 06:30 06:30 WBC 8.5 RBC 4.10 Hgb 11.9 Hct 35.3 L MCV 86.1 MCHC 33.8 RDW 16.1 H Plt Count 87 L MPV 9.6 Sodium 139 Potassium 3.8 Chloride 103 Carbon Dioxide 22 Anion Gap 14 BUN 28 H Creatinine 1.6 H Creat Clearance w eGFR 41.29 POC Glucometer [id number] Random Glucose 131 H D Calcium 8.5 Total Bilirubin 0.5 AST 9 L D ALT 28 Alkaline Phosphatase 76 Total Protein 6.0 L Albumin 3.3 L Imaging CXR: 06/03/16: Interval subsegmental atelectasis in the R lung base CT chest: 06/04/16: Mild lung emphysema w/subsegmental atelectasis in R middle lobe, posteriorly. 3mm juxtapleural pulm nodule in the right lower lobe laterally which is nonspecific. Minimal pericardial effusion. Active Medications Generic Name Dose Route Start Last Admin Trade Name Freq PRN Reason Stop Dose Admin Allopurinol 100 mg 06/04/16 10:00 06/04/16 10:42 Zyloprim - PO 100 mg DAILY [facility] Administration Ascorbic Acid 500 mg 06/04/16 10:00 06/04/16 10:42 Vitamin C - PO 500 mg DAILY [facility] Administration Cholecalciferol 5,000 unit 06/04/16 10:00 06/04/16 10:42 Vitamin D3 - PO 5,000 unit DAILY [facility] Administration Docusate Sodium 100 mg 06/03/16 22:00 06/03/16 23:26 Colace - PO 100 mg HS [facility] Administration Ferrous Sulfate 325 mg 06/04/16 10:00 06/04/16 10:42 Feosol - PO 325 mg DAILY [facility] Administration Fluticasone Propionate 1 spray 06/03/16 19:15 06/04/16 10:40 Flonase - NS 16 gm DAILY [facility] Administration Losartan Potassium 50 mg 06/03/16 22:00 06/04/16 10:42 Cozaar - PO 50 mg BID [facility] Administration Methylprednisolone Sodium Succinate 40 mg 06/03/16 21:00 06/04/16 16:28 Solu-Medrol - IVPB 40 mg Q6H-IV [facility] Administration Mometasone Furoate 1 puff 06/03/16 22:00 06/04/16 10:41 Asmanex 110mcg - IH 1 puff BID [facility]DRA Administration Pyridoxine HCl 50 mg 06/04/16 10:00 06/04/16 10:42 Vitamin B6 - PO 50 mg DAILY [facility] Administration Tamsulosin HCl 0.4 mg 06/04/16 10:00 06/04/16 10:42 Flomax - PO 0.4 mg DAILY [facility] Administration Thiamine HCl 100 mg 06/04/16 10:00 06/04/16 10:42 Vitamin B1 - PO 100 mg DAILY [facility] Administration Warfarin Sodium 2.5 mg/ 4.5 mg 06/04/16 18:00 Warfarin Sodium 2 mg PO DAILY@1800 [facility] ASSESSMENT/PLAN: 86 y/o M w/PMH of Afib (on warfarin), CAD, HTN, HLD, COPD, BPH, Prostate ca presents to ER w/ c/o SOB and cough for last two days. Admitted for COPD exacerbation. -Cough and SOB secondary to COPD exacerbation -c/w solu-medrol 40 mg iv q6h -c/w asmanex, flonase -no signs of pna from CXR or CT chest. Pt clinically shows no signs of infections at this time. Monitor -f/u BCx, negative x24 hours so far -Afib -c/w warfarin 4.5 mg po qd -HTN -c/w losartan 50 mg po qd Dispo: We will continue to follow the patient. Thank you for this consultative opportunity. Problem List - Problems (1) A-fib Code(s): I48.91 - UNSPECIFIED ATRIAL FIBRILLATION Qualifiers: Atrial fibrillation type: permanent Qualified Code(s): I48.2 - Chronic atrial fibrillation (2) CHF (congestive heart failure) Code(s): I50.9 - HEART FAILURE, UNSPECIFIED Qualifiers: Congestive heart failure type: diastolic Congestive heart failure chronicity: acute on chronic Qualified Code(s): I50.33 - Acute on chronic diastolic (congestive) heart failure (3) COPD exacerbation Code(s): J44.1 - CHRONIC OBSTRUCTIVE PULMONARY DISEASE W (ACUTE) EXACERBATION (4) Cholelithiasis Code(s): K80.20 - CALCULUS OF GALLBLADDER W/O CHOLECYSTITIS W/O OBSTRUCTION (5) Hypertension Code(s): I10 - ESSENTIAL (PRIMARY) HYPERTENSION Qualifiers: Hypertension type: essential hypertension Visit type - Emergency Visit Emergency Visit: Yes ED Registration Date: 06/03/16 Care time: The patient presented to the Emergency Department on the above date and was hospitalized for further evaluation of their emergent condition. - New Patient This patient is new to me today: Yes Date on this admission: 06/05/16 - Critical Care Critical Care patient: No
--- NOTE | 2016-06-04 17:58 | PN ---
Teaching Attending Note Name of Resident: Florian Cole ATTENDING PHYSICIAN STATEMENT I saw and evaluated the patient. I reviewed the resident's note and discussed the case with the resident. I agree with the resident's findings and plan as documented. SUBJECTIVE:COUGH/SOB/WHEEZE OBJECTIVE:BILATERAL EXP RHONCHI WITH MILD WHEEZES AGREE WITH PLAN OUTLINED Josse GARAY MD
[2016-06-04] MEDS ORDERED: WARFARIN NA 2.5 MG TABLET (FP) ONE (18:26)
[2016-06-04] MEDS ORDERED: WARFARIN NA 2 MG TABLET (UD) ONE (18:26)
[2016-06-04] MEDS: WARFARIN NA 2.5 MG, WARFARIN NA 2 MG PO SCH (18:27)
[2016-06-04] MEDS ORDERED: PT OWN MED DRAWER 7, Y5N ONE (22:58)
[2016-06-04] MEDS: DOCUSATE SODIUM 100 MG CAPSULE (FP) PO SCH (22:59)
[2016-06-04] MEDS: METOPROLOL TARTRATE 50 MG TABLET (FP) PO SCH (22:59)
[2016-06-05] MEDS: methylPREDNISolone NA SUCC 40 MG/1 ML VIAL IVPB SCH ×4 (03:40→21:46)
[2016-06-05] MEDS: METOPROLOL TARTRATE 50 MG TABLET (FP) PO SCH ×3 (07:02→21:44)
[2016-06-05 08:05] LABS: BASOPHIL 0.2 % (0-2.0); MCH 28.6 pg (25.7-33.7); MCHC 32.7 g/dl (32.0-35.9); MEAN CELL VOLUME 87.3 fl (80-96); MEAN PLT VOLUME 9.4 fl (7.5-11.1); NEUTROPHILS 89.4 % (42.8-82.8); PLATELET COUNT 126 K/MM3 (134-434); RDW 16.3 % (11.9-15.9); WHITE BLOOD COUNT 18.7 K/mm3 (4.0-10.0)
--- NOTE | 2016-06-05 08:29 | PN ---
Progress Note, Physician Chief Complaint: OOB still coughing but less SOB - Current Medication List Current Medications: Active Medications Allopurinol (Zyloprim -) 100 mg PO DAILY [facility] Last Admin: 06/04/16 10:42 Dose: 100 mg Ascorbic Acid (Vitamin C -) 500 mg PO DAILY [facility] Last Admin: 06/04/16 10:42 Dose: 500 mg Cholecalciferol (Vitamin D3 -) 5,000 unit PO DAILY [facility] Last Admin: 06/04/16 10:42 Dose: 5,000 unit Docusate Sodium (Colace -) 100 mg PO HS [facility] Last Admin: 06/04/16 22:59 Dose: 100 mg Ferrous Sulfate (Feosol -) 325 mg PO DAILY [facility] Last Admin: 06/04/16 10:42 Dose: 325 mg Fluticasone Propionate (Flonase -) 1 spray NS DAILY [facility] Last Admin: 06/04/16 10:40 Dose: 16 gm Losartan Potassium (Cozaar -) 50 mg PO BID [facility] Last Admin: 06/04/16 22:59 Dose: 50 mg Methylprednisolone Sodium Succinate (Solu-Medrol -) 40 mg IVPB Q6H-IV [facility] Last Admin: 06/05/16 03:40 Dose: 40 mg Metoprolol Tartrate (Lopressor -) 50 mg PO TID [facility] Last Admin: 06/05/16 07:02 Dose: 50 mg Mometasone Furoate (Asmanex 110mcg -) 1 puff IH BID [facility] Last Admin: 06/04/16 23:00 Dose: 1 puff Pyridoxine HCl (Vitamin B6 -) 50 mg PO DAILY [facility] Last Admin: 06/04/16 10:42 Dose: 50 mg Tamsulosin HCl (Flomax -) 0.4 mg PO DAILY [facility] Last Admin: 06/04/16 10:42 Dose: 0.4 mg Thiamine HCl (Vitamin B1 -) 100 mg PO DAILY [facility] Last Admin: 06/04/16 10:42 Dose: 100 mg Warfarin Sodium 2.5 mg/ (Warfarin Sodium 2 mg) 4.5 mg PO DAILY@1800 [facility] Last Admin: 06/04/16 18:27 Dose: 4.5 mg - Objective Vital Signs: Vital Signs Temperature 97.7 F 06/05/16 01:43 Pulse Rate 98 H 06/05/16 07:59 Respiratory Rate 20 06/05/16 07:59 Blood Pressure 150/70 04/12/17 07:59 O2 Sat by Pulse Oximetry (%) 94 L 06/04/16 13:45 Constitutional: Yes: No Distress, Calm Eyes: Yes: Conjunctiva Clear HENT: Yes: Atraumatic Neck: Yes: Supple Cardiovascular: No: Regular Rate and Rhythm Respiratory: Yes: Cough Gastrointestinal: Yes: Soft. No: Tenderness Genitourinary: No: CVA Tenderness - Left, CVA Tenderness - Right Musculoskeletal: No: Joint Stiffness, Joint Swelling Extremities: No: Cold, Cool Edema: No Neurological: Yes: WNL, Alert, Oriented ...Motor Strength: WNL Psychiatric: Yes: WNL, Alert, Oriented. No: Agitated Labs: CBC, BMP 06/05/16 06:20 - ....Imaging Other: Report Reviewed Assessment/Plan The patient is an 86 year old male with a significant past medical history of COPD, A-fib, ( s/p pacemaker) CAD, HTN, HLD, sick sinus syndrome, prostate CA, diverticulitis , nephrolithiasis and prior episodes of enterococcal urosepsis and pyelonephritis , presents to the emergency department with complaint of shortness of breath and COPD exac. s/p recent discharge from the hospital for COPD exacerbation on po Prednisone but his breathing worsened; COPD exac and possible PNA/ atelectasis jazmine Riojas f/u coumadin per INR fslls pfx d/w pt and staff
[2016-06-05 08:34] LABS: CALCIUM 9.3 mg/dL (8.5-10.1); COCKROFT - GAULT 39.84; CREATININE 1.6 mg/dL (0.7-1.3)
[2016-06-05 08:40] LABS: INR 2.05 (0.82-1.09); PROTHROMBIN TIME (PATIENT) 22.9 SEC (9.98-11.88)
[2016-06-05] MEDS ORDERED: PT OWN MED DRAWER 7, Y5N ONE ×2 (10:15→21:42)
[2016-06-05] MEDS: MOMETASONE FUROATE 110 MCG/IH INHALER IH SCH ×2 (10:40→21:45)
[2016-06-05] MEDS: THIAMINE HCL 100 MG TABLET (FP) PO SCH (10:40)
[2016-06-05] MEDS: FERROUS SO4 325 MG TABLET (FP) PO SCH (10:40)
[2016-06-05] MEDS: LOSARTAN POTASSIUM 50 MG TABLET (FP) PO SCH ×2 (10:40→21:44)
[2016-06-05] MEDS: ASCORBIC ACID 500 MG TABLET (FP) PO SCH (10:40)
[2016-06-05] MEDS: PYRIDOXINE HCL (B-6) 100 MG TABLET PO SCH (10:41)
[2016-06-05] MEDS: ALLOPURINOL 100 MG TABLET (FP) PO SCH (10:41)
[2016-06-05] MEDS: FLUTICASONE PROP 0.05% 16 GM NASAL SPRAY NS SCH (10:41)
[2016-06-05] MEDS: CHOLECALCIFEROL (VITAMIN D3) 1,000 UNIT TABLET (FP) PO SCH (10:41)
[2016-06-05] MEDS: TAMSULOSIN HCL 0.4 MG CAP.ER.24H (FP) PO SCH (10:42)
--- NOTE | 2016-06-05 11:09 | PN ---
Physical Exam: PULMONARY PROGRESS NOTE SUBJECTIVE: Patient seen and examined at bedside. Pt states he feels "100% better" today but not yet back to baseline. He feels as though his breathing has improved and he has less SOB. He was able to walk to end of gatica and back to room with minimal SOB today. He has improved cough now with minimal sputum production. His chest tightness is also improving today. He denies CP, pain with deep inspiration, abd pain, dizziness, dysuria, diarrhea, fevers, chills. OBJECTIVE: Vital Signs Temperature 97.7 F 06/05/16 01:43 Pulse Rate 98 H 06/05/16 07:59 Respiratory Rate 20 06/05/16 07:59 Blood Pressure 150/70 06/05/16 07:59 O2 Sat by Pulse Oximetry (%) 94 L 06/04/16 13:45 GENERAL: The patient is awake, alert, and fully oriented, in no acute distress. Able to speak in full sentences w/o distress. HEAD: Normal with no signs of trauma. EYES: PERRL, extraocular movements intact, sclera anicteric, conjunctiva clear. No ptosis. ENT: Ears normal, nares patent, oropharynx clear without exudates, moist mucous membranes. NECK: Trachea midline, full range of motion, supple. LUNGS: diminished breath sounds b/l, no wheezing, no crackles. HEART: Regular rate and rhythm, S1, S2 without murmur, rub or gallop. ABDOMEN: Soft, nontender, nondistended, normoactive bowel sounds, no guarding, no rebound, no hepatosplenomegaly, no masses. EXTREMITIES: 2+ pulses, warm, well-perfused, trace pitting edema. NEUROLOGICAL: Cranial nerves II through XII grossly intact. Normal speech, gait not observed. PSYCH: Normal mood, normal affect. SKIN: Warm, dry, normal turgor, no rashes or lesions noted Laboratory Results - last 24 hr 06/05/16 06/05/16 06/05/16 06:20 06:20 06:20 WBC 18.7 H D RBC 4.88 Hgb 14.0 D Hct 42.6 D MCV 87.3 MCHC 32.7 RDW 16.3 H Plt Count 126 L D MPV 9.4 Neutrophils % 89.4 H D Lymphocytes % 6.7 L D Monocytes % 3.7 L Eosinophils % 0.0 D Basophils % 0.2 INR 2.05 H Sodium 138 Potassium 3.8 Chloride 100 Carbon Dioxide 27 D Anion Gap 11 BUN 35 H D Creatinine 1.6 H Random Glucose 91 D Calcium 9.3 Active Medications Generic Name Dose Route Start Last Admin Trade Name Vitaliy PRN Reason Stop Dose Admin Allopurinol 100 mg 06/04/16 10:00 06/05/16 10:41 Zyloprim - PO 100 mg DAILY [facility]A Administration Ascorbic Acid 500 mg 06/04/16 10:00 06/05/16 10:40 Vitamin C - PO 500 mg DAILY [facility] Administration Cholecalciferol 5,000 unit 06/04/16 10:00 06/05/16 10:41 Vitamin D3 - PO 5,000 unit DAILY [facility] Administration Docusate Sodium 100 mg 06/03/16 22:00 06/04/16 22:59 Colace - PO 100 mg HS [facility] Administration Ferrous Sulfate 325 mg 06/04/16 10:00 06/05/16 10:40 Feosol - PO 325 mg DAILY [facility] Administration Fluticasone Propionate 1 spray 06/03/16 19:15 06/05/16 10:41 Flonase - NS 1 gm DAILY [facility] Administration Losartan Potassium 50 mg 06/03/16 22:00 06/05/16 10:40 Cozaar - PO 50 mg BID [facility] Administration Methylprednisolone Sodium Succinate 40 mg 06/03/16 21:00 06/05/16 10:40 Solu-Medrol - IVPB 40 mg Q6H-IV [facility] Administration Metoprolol Tartrate 50 mg 06/04/16 22:00 06/05/16 07:02 Lopressor - PO 50 mg TID [facility] Administration Mometasone Furoate 1 puff 06/03/16 22:00 06/05/16 10:40 Asmanex 110mcg - IH 1 puff BID [facility] Administration Pyridoxine HCl 50 mg 06/04/16 10:00 06/05/16 10:41 Vitamin B6 - PO 50 mg DAILY [facility] Administration Tamsulosin HCl 0.4 mg 06/04/16 10:00 06/05/16 10:42 Flomax - PO 0.4 mg DAILY [facility] Administration Thiamine HCl 100 mg 06/04/16 10:00 06/05/16 10:40 Vitamin B1 - PO 100 mg DAILY [facility] Administration Warfarin Sodium 2.5 mg/ 4.5 mg 06/04/16 18:00 06/04/16 18:27 Warfarin Sodium 2 mg PO 4.5 mg DAILY@1800 [facility] Administration ASSESSMENT/PLAN: 86 y/o M w/PMH of Afib (on warfarin), CAD, HTN, HLD, COPD, BPH, Prostate ca presents to ER w/ c/o SOB and cough for last two days. Admitted for COPD exacerbation. -Cough and SOB secondary to COPD exacerbation -Taper solu-medrol to 40 mg iv bid -c/w asmanex, flonase -Pt clinically shows no signs of infections at this time. Monitor -f/u BCx, negative x24 hours so far -Leukocytosis -most likely secondary to steroid use -pt showing no signs of infection at this time; pt is clinically improving -Afib -c/w warfarin 4.5 mg po qd -HTN -c/w losartan 50 mg po qd Dispo: We will continue to follow the patient. Thank you for this consultative opportunity. Problem List - Problems (1) A-fib Code(s): I48.91 - UNSPECIFIED ATRIAL FIBRILLATION Qualifiers: Atrial fibrillation type: permanent Qualified Code(s): I48.2 - Chronic atrial fibrillation (2) CHF (congestive heart failure) Code(s): I50.9 - HEART FAILURE, UNSPECIFIED Qualifiers: Congestive heart failure type: diastolic Congestive heart failure chronicity: acute on chronic Qualified Code(s): I50.33 - Acute on chronic diastolic (congestive) heart failure (3) COPD exacerbation Code(s): J44.1 - CHRONIC OBSTRUCTIVE PULMONARY DISEASE W (ACUTE) EXACERBATION (4) Cholelithiasis Code(s): K80.20 - CALCULUS OF GALLBLADDER W/O CHOLECYSTITIS W/O OBSTRUCTION (5) Hypertension Code(s): I10 - ESSENTIAL (PRIMARY) HYPERTENSION Qualifiers: Hypertension type: essential hypertension Visit type - Emergency Visit Emergency Visit: Yes ED Registration Date: 06/03/16 Care time: The patient presented to the Emergency Department on the above date and was hospitalized for further evaluation of their emergent condition. - New Patient This patient is new to me today: No - Critical Care Critical Care patient: No
--- NOTE | 2016-06-05 15:29 | PN ---
Progress Note (short form) - Note Progress Note: PULMONARY ALERT,OOB-CHAIR FEELING BETTER,-RESP DISTRESS IMP COPD EXACERBATION AFIB HTN BPH CKD PLAN IV STEROIDS INHALED BRONCHODILATORS O2 COUMADIN MONITOR INR,LYTES Problem List - Problems (1) A-fib Code(s): I48.91 - UNSPECIFIED ATRIAL FIBRILLATION Qualifiers: Atrial fibrillation type: permanent Qualified Code(s): I48.2 - Chronic atrial fibrillation (2) CHF (congestive heart failure) Code(s): I50.9 - HEART FAILURE, UNSPECIFIED Qualifiers: Congestive heart failure type: diastolic Congestive heart failure chronicity: acute on chronic Qualified Code(s): I50.33 - Acute on chronic diastolic (congestive) heart failure (3) COPD exacerbation Code(s): J44.1 - CHRONIC OBSTRUCTIVE PULMONARY DISEASE W (ACUTE) EXACERBATION (4) Cholelithiasis Code(s): K80.20 - CALCULUS OF GALLBLADDER W/O CHOLECYSTITIS W/O OBSTRUCTION (5) Hypertension Code(s): I10 - ESSENTIAL (PRIMARY) HYPERTENSION Qualifiers: Hypertension type: essential hypertension
[2016-06-05] MEDS ORDERED: WARFARIN NA 2.5 MG TABLET (FP) ONE (17:26)
[2016-06-05] MEDS ORDERED: WARFARIN NA 2 MG TABLET (UD) ONE (17:26)
[2016-06-05] MEDS: WARFARIN NA 2.5 MG, WARFARIN NA 2 MG PO SCH (17:27)
[2016-06-05] MEDS: DOCUSATE SODIUM 100 MG CAPSULE (FP) PO SCH (21:45)
[2016-06-06] MEDS: methylPREDNISolone NA SUCC 40 MG/1 ML VIAL IVPB SCH ×4 (02:48→21:16)
[2016-06-06] MEDS: METOPROLOL TARTRATE 50 MG TABLET (FP) PO SCH ×3 (05:07→21:16)
[2016-06-06 07:32] LABS: MCHC 33.6 g/dl (32.0-35.9); MEAN CELL VOLUME 86.2 fl (80-96); MEAN PLT VOLUME 9.1 fl (7.5-11.1); PLATELET COUNT 91 K/MM3 (134-434); RDW 16.1 % (11.9-15.9); WHITE BLOOD COUNT 11.9 K/mm3 (4.0-10.0)
[2016-06-06 07:49] LABS: INR 3.04 (0.82-1.09); PROTHROMBIN TIME (PATIENT) 34.2 SEC (9.98-11.88)
[2016-06-06 08:10] LABS: CALCIUM 8.4 mg/dL (8.5-10.1); COCKROFT - GAULT 37.5; CREATININE 1.7 mg/dL (0.7-1.3)
--- NOTE | 2016-06-06 10:06 | PN ---
Progress Note, Physician History of Present Illness: Pt is feeling better than yesterday ( and admission), still c/o BERGER and wheezing when walking. - Current Medication List Current Medications: Active Medications Allopurinol (Zyloprim -) 100 mg PO DAILY [facility] Last Admin: 06/05/16 10:41 Dose: 100 mg Ascorbic Acid (Vitamin C -) 500 mg PO DAILY [facility] Last Admin: 06/05/16 10:40 Dose: 500 mg Cholecalciferol (Vitamin D3 -) 5,000 unit PO DAILY [facility] Last Admin: 06/05/16 10:41 Dose: 5,000 unit Docusate Sodium (Colace -) 100 mg PO HS [facility] Last Admin: 06/05/16 21:45 Dose: 100 mg Ferrous Sulfate (Feosol -) 325 mg PO DAILY [facility] Last Admin: 06/05/16 10:40 Dose: 325 mg Fluticasone Propionate (Flonase -) 1 spray NS DAILY [facility] Last Admin: 06/05/16 10:41 Dose: 1 gm Losartan Potassium (Cozaar -) 50 mg PO BID [facility] Last Admin: 06/05/16 21:44 Dose: 50 mg Methylprednisolone Sodium Succinate (Solu-Medrol -) 40 mg IVPB Q6H-IV [facility] Last Admin: 06/06/16 02:48 Dose: 40 mg Metoprolol Tartrate (Lopressor -) 50 mg PO TID [facility] Last Admin: 06/06/16 05:07 Dose: 50 mg Mometasone Furoate (Asmanex 110mcg -) 1 puff IH BID [facility] Last Admin: 06/05/16 21:45 Dose: 1 puff Pyridoxine HCl (Vitamin B6 -) 50 mg PO DAILY [facility] Last Admin: 06/05/16 10:41 Dose: 50 mg Tamsulosin HCl (Flomax -) 0.4 mg PO DAILY [facility] Last Admin: 06/05/16 10:42 Dose: 0.4 mg Thiamine HCl (Vitamin B1 -) 100 mg PO DAILY [facility] Last Admin: 06/05/16 10:40 Dose: 100 mg Warfarin Sodium 2.5 mg/ (Warfarin Sodium 2 mg) 4.5 mg PO DAILY@1800 [facility] Last Admin: 06/05/16 17:27 Dose: 4.5 mg - Objective Vital Signs: Vital Signs Temperature 97.8 F 06/06/16 06:00 Pulse Rate 83 06/06/16 06:00 Respiratory Rate 20 06/06/16 06:00 Blood Pressure 118/40 06/06/16 06:00 O2 Sat by Pulse Oximetry (%) 98 06/05/16 21:00 Constitutional: Yes: No Distress Cardiovascular: Yes: Regular Rate and Rhythm, S1, S2 Respiratory: Yes: Regular, Rhonchi Gastrointestinal: Yes: Normal Bowel Sounds, Soft. No: Tenderness Edema: No Neurological: Yes: Alert, Oriented Labs: CBC, BMP 06/06/16 06:30 06/06/16 06:30 INR, PTT INR 3.04 (0.82-1.09) H D 06/06/16 06:30 Problem List - Problems (1) Pneumonia Assessment/Plan: Not confirmed by Chest CT scan Code(s): J18.9 - PNEUMONIA, UNSPECIFIED ORGANISM (2) COPD exacerbation Assessment/Plan: IV Solu-Medrol, slow tappering Code(s): J44.1 - CHRONIC OBSTRUCTIVE PULMONARY DISEASE W (ACUTE) EXACERBATION (3) A-fib Assessment/Plan: F/u INR; adjust Comadin as needed to keep INR 2 to 3 Code(s): I48.91 - UNSPECIFIED ATRIAL FIBRILLATION Qualifiers: Atrial fibrillation type: permanent Qualified Code(s): I48.2 - Chronic atrial fibrillation (4) CHF (congestive heart failure) Assessment/Plan: to monitor for pulmonary congestion Code(s): I50.9 - HEART FAILURE, UNSPECIFIED Qualifiers: Congestive heart failure type: diastolic Congestive heart failure chronicity: acute on chronic Qualified Code(s): I50.33 - Acute on chronic diastolic (congestive) heart failure (5) Urinary retention Assessment/Plan: self cath every 3 days. Code(s): R33.9 - RETENTION OF URINE, UNSPECIFIED (6) Supratherapeutic INR Assessment/Plan: coumadin on hold. INR in AM Code(s): R79.1 - ABNORMAL COAGULATION PROFILE Assessment/Plan Case was d/w pt , plan was d/w pt. Pt.'s nurse at bedside
[2016-06-06] MEDS ORDERED: PT OWN MED DRAWER 7, Y5N ONE ×2 (10:12→20:31)
[2016-06-06] MEDS: MOMETASONE FUROATE 110 MCG/IH INHALER IH SCH ×2 (10:16→21:16)
[2016-06-06] MEDS: FERROUS SO4 325 MG TABLET (FP) PO SCH (10:17)
[2016-06-06] MEDS: LOSARTAN POTASSIUM 50 MG TABLET (FP) PO SCH ×2 (10:17→21:16)
[2016-06-06] MEDS: TAMSULOSIN HCL 0.4 MG CAP.ER.24H (FP) PO SCH (10:17)
[2016-06-06] MEDS: THIAMINE HCL 100 MG TABLET (FP) PO SCH (10:17)
[2016-06-06] MEDS: ASCORBIC ACID 500 MG TABLET (FP) PO SCH (10:18)
[2016-06-06] MEDS: PYRIDOXINE HCL (B-6) 100 MG TABLET PO SCH (10:18)
[2016-06-06] MEDS: ALLOPURINOL 100 MG TABLET (FP) PO SCH (10:19)
[2016-06-06] MEDS: FLUTICASONE PROP 0.05% 16 GM NASAL SPRAY NS SCH (10:19)
[2016-06-06] MEDS: CHOLECALCIFEROL (VITAMIN D3) 1,000 UNIT TABLET (FP) PO SCH (10:19)
[2016-06-06 10:26] LABS: PLATELET ESTIMATE DECREASED (NORMAL)
[2016-06-06] MEDS ORDERED: ALBUTEROL SO4 0.083% IH SOL 2.5 MG/3 ML VIAL.NEB. NEB PRN (14:45)
--- NOTE | 2016-06-06 14:45 | PN ---
Progress Note (short form) - Note Progress Note: PULMONARY Breathing better today but still wheezing with exertion. Last Vital Signs Temp Pulse Resp BP Pulse Ox 97.8 F 83 20 118/40 98 06/06/16 06:00 06/06/16 06:00 06/06/16 06:00 06/06/16 06:00 06/05/16 21:00 Gen: NAD in chair Heart: scattered rhonchi, wheezes Abd: soft, nontender Ext: no edema CBC, BMP 06/06/16 06:30 06/06/16 06:30 Active Medications Allopurinol (Zyloprim -) 100 mg PO DAILY [facility] Last Admin: 06/06/16 10:19 Dose: 100 mg Ascorbic Acid (Vitamin C -) 500 mg PO DAILY [facility] Last Admin: 06/06/16 10:18 Dose: 500 mg Cholecalciferol (Vitamin D3 -) 5,000 unit PO DAILY [facility] Last Admin: 06/06/16 10:19 Dose: 5,000 unit Docusate Sodium (Colace -) 100 mg PO HS [facility] Last Admin: 06/05/16 21:45 Dose: 100 mg Ferrous Sulfate (Feosol -) 325 mg PO DAILY [facility] Last Admin: 06/06/16 10:17 Dose: 325 mg Fluticasone Propionate (Flonase -) 1 spray NS DAILY [facility] Last Admin: 06/06/16 10:19 Dose: 16 gm Losartan Potassium (Cozaar -) 50 mg PO BID [facility] Last Admin: 06/06/16 10:17 Dose: 50 mg Methylprednisolone Sodium Succinate (Solu-Medrol -) 40 mg IVPB Q6H-IV [facility] Last Admin: 06/06/16 10:16 Dose: 40 mg Metoprolol Tartrate (Lopressor -) 50 mg PO TID [facility] Last Admin: 06/06/16 05:07 Dose: 50 mg Mometasone Furoate (Asmanex 110mcg -) 1 puff IH BID [facility] Last Admin: 06/06/16 10:16 Dose: 1 puff Pyridoxine HCl (Vitamin B6 -) 50 mg PO DAILY [facility] Last Admin: 06/06/16 10:18 Dose: 50 mg Tamsulosin HCl (Flomax -) 0.4 mg PO DAILY [facility] Last Admin: 06/06/16 10:17 Dose: 0.4 mg Thiamine HCl (Vitamin B1 -) 100 mg PO DAILY [facility] Last Admin: 06/06/16 10:17 Dose: 100 mg Warfarin Sodium 2.5 mg/ (Warfarin Sodium 2 mg) 4.5 mg PO DAILY@1800 [facility] Last Admin: 06/05/16 17:27 Dose: 4.5 mg A/P Acute COPD Exacerbation Atrial Fibrillation Atelectasis HTN CKD BPH - continue medrol at current dose, can taper in AM if continues to improve - inhaled bronchodilators standing and PRN - rate controlled - continue anticoaguation - O2 as needed
[2016-06-06] MEDS: ALBUTEROL SO4 2.5/IPRATROPIUM 0.5 INH SOL 3 ML VIAL.NEB. NEB SCH ×2 (17:55→23:45)
[2016-06-06] MEDS: DOCUSATE SODIUM 100 MG CAPSULE (FP) PO SCH (21:16)
[2016-06-07] MEDS: methylPREDNISolone NA SUCC 40 MG/1 ML VIAL IVPB SCH ×3 (02:16→17:35)
[2016-06-07] MEDS: ALBUTEROL SO4 2.5/IPRATROPIUM 0.5 INH SOL 3 ML VIAL.NEB. NEB SCH ×3 (05:40→18:00)
[2016-06-07] MEDS: METOPROLOL TARTRATE 50 MG TABLET (FP) PO SCH ×3 (05:54→22:23)
[2016-06-07 07:51] LABS: INR 2.77 (0.82-1.09); PROTHROMBIN TIME (PATIENT) 31.1 SEC (9.98-11.88)
[2016-06-07 07:55] LABS: CALCIUM 8.3 mg/dL (8.5-10.1); COCKROFT - GAULT 37.5; CREATININE 1.7 mg/dL (0.7-1.3)
[2016-06-07] MEDS ORDERED: PT OWN MED DRAWER 7, Y5N ONE (10:07)
[2016-06-07] MEDS: TAMSULOSIN HCL 0.4 MG CAP.ER.24H (FP) PO SCH (10:14)
[2016-06-07] MEDS: ASCORBIC ACID 500 MG TABLET (FP) PO SCH (10:14)
[2016-06-07] MEDS: ALLOPURINOL 100 MG TABLET (FP) PO SCH (10:14)
[2016-06-07] MEDS: CHOLECALCIFEROL (VITAMIN D3) 1,000 UNIT TABLET (FP) PO SCH (10:14)
[2016-06-07] MEDS: MOMETASONE FUROATE 110 MCG/IH INHALER IH SCH ×2 (10:14→22:22)
[2016-06-07] MEDS: LOSARTAN POTASSIUM 50 MG TABLET (FP) PO SCH ×2 (10:14→22:23)
[2016-06-07] MEDS: THIAMINE HCL 100 MG TABLET (FP) PO SCH (10:15)
[2016-06-07] MEDS: PYRIDOXINE HCL (B-6) 100 MG TABLET PO SCH (10:17)
[2016-06-07] MEDS: FLUTICASONE PROP 0.05% 16 GM NASAL SPRAY NS SCH (10:23)
[2016-06-07] MEDS: FERROUS SO4 325 MG TABLET (FP) PO SCH (11:35)
--- NOTE | 2016-06-07 12:33 | PN ---
Progress Note, Physician History of Present Illness: pulmonary alert,comfortable,dyspnea improving - Current Medication List Current Medications: Active Medications Albuterol Sulfate (Ventolin 0.083% Nebulizer Soln -) 1 amp NEB Q4H PRN PRN Reason: SHORT OF BREATH/WHEEZING Albuterol/Ipratropium (Duoneb -) 1 amp NEB QIDR [facility] Last Admin: 06/07/16 05:40 Dose: 1 amp Allopurinol (Zyloprim -) 100 mg PO DAILY [facility] Last Admin: 06/07/16 10:14 Dose: 100 mg Ascorbic Acid (Vitamin C -) 500 mg PO DAILY [facility] Last Admin: 06/07/16 10:14 Dose: 500 mg Cholecalciferol (Vitamin D3 -) 5,000 unit PO DAILY [facility] Last Admin: 06/07/16 10:14 Dose: 5,000 unit Docusate Sodium (Colace -) 100 mg PO HS [facility] Last Admin: 06/06/16 21:16 Dose: 100 mg Ferrous Sulfate (Feosol -) 325 mg PO DAILY [facility] Last Admin: 06/07/16 11:35 Dose: 325 mg Fluticasone Propionate (Flonase -) 1 spray NS DAILY [facility] Last Admin: 06/07/16 10:23 Dose: 1 spray Losartan Potassium (Cozaar -) 50 mg PO BID [facility] Last Admin: 06/07/16 10:14 Dose: 50 mg Methylprednisolone Sodium Succinate (Solu-Medrol -) 40 mg IVPB Q6H-IV [facility] Last Admin: 06/07/16 10:14 Dose: 40 mg Metoprolol Tartrate (Lopressor -) 50 mg PO TID [facility] Last Admin: 06/07/16 05:54 Dose: 50 mg Mometasone Furoate (Asmanex 110mcg -) 1 puff IH BID [facility] Last Admin: 06/07/16 10:14 Dose: 1 puff Pyridoxine HCl (Vitamin B6 -) 50 mg PO DAILY [facility] Last Admin: 06/07/16 10:17 Dose: 50 mg Tamsulosin HCl (Flomax -) 0.4 mg PO DAILY [facility] Last Admin: 06/07/16 10:14 Dose: 0.4 mg Thiamine HCl (Vitamin B1 -) 100 mg PO DAILY [facility] Last Admin: 06/07/16 10:15 Dose: 100 mg Warfarin Sodium 2.5 mg/ (Warfarin Sodium 2 mg) 4.5 mg PO DAILY@1800 [facility] Last Admin: 06/05/16 17:27 Dose: 4.5 mg - Objective Vital Signs: Vital Signs Temperature 97.9 F 06/07/16 10:00 Pulse Rate 95 H 06/07/16 10:00 Respiratory Rate 18 06/07/16 10:00 Blood Pressure 136/75 06/07/16 10:00 O2 Sat by Pulse Oximetry (%) 96 06/06/16 21:00 Constitutional: Yes: Well Nourished, Calm Eyes: Yes: WNL HENT: Yes: WNL Neck: Yes: WNL Cardiovascular: Yes: Pulse Irregular, S1, S2 Respiratory: Yes: Wheezes (few scatttered yaneli wheezes) Gastrointestinal: Yes: Normal Bowel Sounds, Soft Extremities: Yes: WNL Edema: No Labs: CBC, BMP 06/06/16 06:30 06/07/16 06:00 INR, PTT INR 2.77 (0.82-1.09) H 06/07/16 06:00 Assessment/Plan IMP COPD EXACERBATION improving AFIB HTN BPH CKD PLAN STEROID TAPER INHALED BRONCHODILATORS O2 COUMADIN PER INR MONITOR INR,LYTES Problem List - Problems (1) A-fib Code(s): I48.91 - UNSPECIFIED ATRIAL FIBRILLATION Qualifiers: Atrial fibrillation type: permanent Qualified Code(s): I48.2 - Chronic atrial fibrillation (2) CHF (congestive heart failure) Code(s): I50.9 - HEART FAILURE, UNSPECIFIED Qualifiers: Congestive heart failure type: diastolic Congestive heart failure chronicity: acute on chronic Qualified Code(s): I50.33 - Acute on chronic diastolic (congestive) heart failure (3) COPD exacerbation Code(s): J44.1 - CHRONIC OBSTRUCTIVE PULMONARY DISEASE W (ACUTE) EXACERBATION (4) Cholelithiasis Code(s): K80.20 - CALCULUS OF GALLBLADDER W/O CHOLECYSTITIS W/O OBSTRUCTION (5) Hypertension Code(s): I10 - ESSENTIAL (PRIMARY) HYPERTENSION Qualifiers: Hypertension type: essential hypertension
[2016-06-07] MEDS ORDERED: WARFARIN NA 2.5 MG TABLET (FP) ONE (17:08)
[2016-06-07] MEDS ORDERED: WARFARIN NA 2 MG TABLET (UD) ONE (17:08)
[2016-06-07] MEDS: WARFARIN NA 2.5 MG, WARFARIN NA 2 MG PO SCH (17:35)
[2016-06-07] MEDS: DOCUSATE SODIUM 100 MG CAPSULE (FP) PO SCH (22:23)
[2016-06-08] MEDS: methylPREDNISolone NA SUCC 40 MG/1 ML VIAL IVPB SCH ×3 (01:19→17:01)
[2016-06-08] MEDS: ALBUTEROL SO4 2.5/IPRATROPIUM 0.5 INH SOL 3 ML VIAL.NEB. NEB SCH ×5 (06:16→23:54)
[2016-06-08] MEDS: METOPROLOL TARTRATE 50 MG TABLET (FP) PO SCH ×3 (06:54→21:25)
[2016-06-08 07:54] LABS: CALCIUM 8.3 mg/dL (8.5-10.1); COCKROFT - GAULT 35.41; CREATININE 1.8 mg/dL (0.7-1.3)
[2016-06-08 08:00] LABS: INR 2.38 (0.82-1.09); PROTHROMBIN TIME (PATIENT) 26.6 SEC (9.98-11.88)
[2016-06-08] MEDS ORDERED: PT OWN MED DRAWER 7, Y5N ONE ×3 (09:50→21:09)
[2016-06-08] MEDS: FERROUS SO4 325 MG TABLET (FP) PO SCH (10:15)
[2016-06-08] MEDS: ALLOPURINOL 100 MG TABLET (FP) PO SCH (10:15)
[2016-06-08] MEDS: TAMSULOSIN HCL 0.4 MG CAP.ER.24H (FP) PO SCH (10:15)
[2016-06-08] MEDS: ASCORBIC ACID 500 MG TABLET (FP) PO SCH (10:15)
[2016-06-08] MEDS: THIAMINE HCL 100 MG TABLET (FP) PO SCH (10:16)
[2016-06-08] MEDS: PYRIDOXINE HCL (B-6) 100 MG TABLET PO SCH (10:16)
[2016-06-08] MEDS: LOSARTAN POTASSIUM 50 MG TABLET (FP) PO SCH ×2 (10:16→21:25)
[2016-06-08] MEDS: CHOLECALCIFEROL (VITAMIN D3) 1,000 UNIT TABLET (FP) PO SCH (10:16)
[2016-06-08] MEDS: MOMETASONE FUROATE 110 MCG/IH INHALER IH SCH ×2 (10:16→21:25)
[2016-06-08] MEDS: FLUTICASONE PROP 0.05% 16 GM NASAL SPRAY NS SCH (12:22)
--- NOTE | 2016-06-08 13:51 | PN ---
Progress Note (short form) - Note Progress Note: PULMONARY Breathing better today but still dyspneic with exertion. Last Vital Signs Temp Pulse Resp BP Pulse Ox 98.5 F 89 18 121/89 97 06/08/16 10:00 06/08/16 10:00 06/08/16 10:00 06/08/16 10:00 06/08/16 09:00 Gen: NAD in chair Heart: scattered rhonchi, wheezes but less Abd: soft, nontender Ext: no edema CBC, BMP 06/06/16 06:30 06/08/16 06:20 Active Medications Albuterol Sulfate (Ventolin 0.083% Nebulizer Soln -) 1 amp NEB Q4H PRN PRN Reason: SHORT OF BREATH/WHEEZING Albuterol/Ipratropium (Duoneb -) 1 amp NEB QIDR [facility] Last Admin: 06/08/16 11:39 Dose: 1 amp Allopurinol (Zyloprim -) 100 mg PO DAILY [facility] Last Admin: 06/08/16 10:15 Dose: 100 mg Ascorbic Acid (Vitamin C -) 500 mg PO DAILY [facility] Last Admin: 06/08/16 10:15 Dose: 500 mg Cholecalciferol (Vitamin D3 -) 5,000 unit PO DAILY [facility] Last Admin: 06/08/16 10:16 Dose: 5,000 unit Docusate Sodium (Colace -) 100 mg PO HS [facility] Last Admin: 06/07/16 22:23 Dose: 100 mg Ferrous Sulfate (Feosol -) 325 mg PO DAILY [facility] Last Admin: 06/08/16 10:15 Dose: 325 mg Fluticasone Propionate (Flonase -) 1 spray NS DAILY [facility] Last Admin: 06/08/16 12:22 Dose: 1 spray Losartan Potassium (Cozaar -) 50 mg PO BID [facility] Last Admin: 06/08/16 10:16 Dose: 50 mg Methylprednisolone Sodium Succinate (Solu-Medrol -) 40 mg IVPB Q8H-IV [facility] Last Admin: 06/08/16 10:15 Dose: 40 mg Metoprolol Tartrate (Lopressor -) 50 mg PO TID [facility] Last Admin: 06/08/16 06:54 Dose: 50 mg Mometasone Furoate (Asmanex 110mcg -) 1 puff IH BID [facility] Last Admin: 04/15/17 10:16 Dose: 1 puff Pyridoxine HCl (Vitamin B6 -) 50 mg PO DAILY [facility] Last Admin: 06/08/16 10:16 Dose: 50 mg Tamsulosin HCl (Flomax -) 0.4 mg PO DAILY [facility] Last Admin: 06/08/16 10:15 Dose: 0.4 mg Thiamine HCl (Vitamin B1 -) 100 mg PO DAILY [facility] Last Admin: 06/08/16 10:16 Dose: 100 mg Warfarin Sodium 2.5 mg/ (Warfarin Sodium 2 mg) 4.5 mg PO DAILY@1800 [facility] Last Admin: 06/07/16 17:35 Dose: 4.5 mg A/P Acute COPD Exacerbation Atrial Fibrillation Atelectasis HTN CKD BPH - slow medrol taper - inhaled bronchodilators standing and PRN - rate controlled - continue anticoaguation - O2 as needed
--- NOTE | 2016-06-08 15:21 | PN ---
Progress Note, Physician History of Present Illness: Pt is feeling better than at admission), still c/o BERGER and wheezing when walking. No CP, palp, dizziness, abd pain. - Current Medication List Current Medications: Active Medications Albuterol Sulfate (Ventolin 0.083% Nebulizer Soln -) 1 amp NEB Q4H PRN PRN Reason: SHORT OF BREATH/WHEEZING Albuterol/Ipratropium (Duoneb -) 1 amp NEB QIDR [facility] Last Admin: 06/08/16 11:39 Dose: 1 amp Allopurinol (Zyloprim -) 100 mg PO DAILY [facility] Last Admin: 06/08/16 10:15 Dose: 100 mg Ascorbic Acid (Vitamin C -) 500 mg PO DAILY [facility] Last Admin: 06/08/16 10:15 Dose: 500 mg Cholecalciferol (Vitamin D3 -) 5,000 unit PO DAILY [facility] Last Admin: 06/08/16 10:16 Dose: 5,000 unit Docusate Sodium (Colace -) 100 mg PO HS [facility] Last Admin: 06/07/16 22:23 Dose: 100 mg Ferrous Sulfate (Feosol -) 325 mg PO DAILY [facility] Last Admin: 06/08/16 10:15 Dose: 325 mg Fluticasone Propionate (Flonase -) 1 spray NS DAILY [facility] Last Admin: 06/08/16 12:22 Dose: 1 spray Losartan Potassium (Cozaar -) 50 mg PO BID [facility] Last Admin: 06/08/16 10:16 Dose: 50 mg Methylprednisolone Sodium Succinate (Solu-Medrol -) 40 mg IVPB Q8H-IV [facility] Last Admin: 06/08/16 10:15 Dose: 40 mg Metoprolol Tartrate (Lopressor -) 50 mg PO TID [facility] Last Admin: 06/08/16 13:57 Dose: 50 mg Mometasone Furoate (Asmanex 110mcg -) 1 puff IH BID [facility] Last Admin: 06/08/16 10:16 Dose: 1 puff Pyridoxine HCl (Vitamin B6 -) 50 mg PO DAILY [facility] Last Admin: 06/08/16 10:16 Dose: 50 mg Tamsulosin HCl (Flomax -) 0.4 mg PO DAILY [facility] Last Admin: 06/08/16 10:15 Dose: 0.4 mg Thiamine HCl (Vitamin B1 -) 100 mg PO DAILY [facility] Last Admin: 06/08/16 10:16 Dose: 100 mg Warfarin Sodium 2.5 mg/ (Warfarin Sodium 2 mg) 4.5 mg PO DAILY@1800 [facility] Last Admin: 06/07/16 17:35 Dose: 4.5 mg - Objective Vital Signs: Vital Signs Temperature 98.5 F 06/08/16 10:00 Pulse Rate 89 06/08/16 10:00 Respiratory Rate 18 06/08/16 10:00 Blood Pressure 121/89 06/08/16 10:00 O2 Sat by Pulse Oximetry (%) 97 06/08/16 09:00 Constitutional: Yes: No Distress, Calm Cardiovascular: Yes: Pulse Irregular, S1, S2 Respiratory: Yes: Regular, CTA Bilaterally. No: Rales Gastrointestinal: Yes: Normal Bowel Sounds, Soft. No: Palpable Mass, Tenderness Edema: LLE: Trace, RLE: Trace Neurological: Yes: Alert, Oriented Labs: CBC, BMP 06/06/16 06:30 06/08/16 06:20 INR, PTT INR 2.38 (0.82-1.09) H 06/08/16 06:20 Problem List - Problems (1) Pneumonia Assessment/Plan: Not confirmed by Chest CT scan. Off abtx. Code(s): J18.9 - PNEUMONIA, UNSPECIFIED ORGANISM (2) COPD exacerbation Assessment/Plan: IV Solu-Medrol, slow tappering- case was d/w Dr. Montalvo Code(s): J44.1 - CHRONIC OBSTRUCTIVE PULMONARY DISEASE W (ACUTE) EXACERBATION (3) A-fib Assessment/Plan: F/u INR; adjust Coumadin as needed to keep INR 2 to 3 Code(s): I48.91 - UNSPECIFIED ATRIAL FIBRILLATION Qualifiers: Atrial fibrillation type: permanent Qualified Code(s): I48.2 - Chronic atrial fibrillation (4) CHF (congestive heart failure) Assessment/Plan: to monitor for pulmonary congestion Code(s): I50.9 - HEART FAILURE, UNSPECIFIED Qualifiers: Congestive heart failure type: diastolic Congestive heart failure chronicity: acute on chronic Qualified Code(s): I50.33 - Acute on chronic diastolic (congestive) heart failure (5) Urinary retention Assessment/Plan: self cath every 3 days. Code(s): R33.9 - RETENTION OF URINE, UNSPECIFIED (6) Supratherapeutic INR Assessment/Plan: Resolved. Code(s): R79.1 - ABNORMAL COAGULATION PROFILE Assessment/Plan AM labs. Pt. was seen and examined yesterday morning on 4S- encounter was not documented yesterday.
[2016-06-08] MEDS ORDERED: WARFARIN NA 2 MG TABLET (UD) ONE (16:49)
[2016-06-08] MEDS ORDERED: WARFARIN NA 2.5 MG TABLET (FP) ONE (16:50)
[2016-06-08] MEDS: WARFARIN NA 2.5 MG, WARFARIN NA 2 MG PO SCH (17:00)
[2016-06-08] MEDS: DOCUSATE SODIUM 100 MG CAPSULE (FP) PO SCH (21:25)
[2016-06-09] MEDS: methylPREDNISolone NA SUCC 40 MG/1 ML VIAL IVPB SCH ×3 (02:50→21:20)
[2016-06-09] MEDS: METOPROLOL TARTRATE 50 MG TABLET (FP) PO SCH ×3 (06:08→21:21)
[2016-06-09] MEDS: ALBUTEROL SO4 2.5/IPRATROPIUM 0.5 INH SOL 3 ML VIAL.NEB. NEB SCH ×3 (07:00→17:30)
[2016-06-09 07:44] LABS: CALCIUM 8.4 mg/dL (8.5-10.1); COCKROFT - GAULT 35.41; CREATININE 1.8 mg/dL (0.7-1.3)
[2016-06-09 07:54] LABS: INR 2.66 (0.82-1.09); PROTHROMBIN TIME (PATIENT) 29.9 SEC (9.98-11.88)
--- NOTE | 2016-06-09 09:43 | PN ---
Progress Note, Physician Chief Complaint: OOB to chair NAD afbeirle no new c/o less SOB less cough no CP - Current Medication List Current Medications: Active Medications Albuterol Sulfate (Ventolin 0.083% Nebulizer Soln -) 1 amp NEB Q4H PRN PRN Reason: SHORT OF BREATH/WHEEZING Albuterol/Ipratropium (Duoneb -) 1 amp NEB QIDR [facility] Last Admin: 06/09/16 07:00 Dose: 1 amp Allopurinol (Zyloprim -) 100 mg PO DAILY [facility] Last Admin: 06/08/16 10:15 Dose: 100 mg Ascorbic Acid (Vitamin C -) 500 mg PO DAILY [facility] Last Admin: 06/08/16 10:15 Dose: 500 mg Cholecalciferol (Vitamin D3 -) 5,000 unit PO DAILY [facility] Last Admin: 06/08/16 10:16 Dose: 5,000 unit Docusate Sodium (Colace -) 100 mg PO HS [facility] Last Admin: 06/08/16 21:25 Dose: 100 mg Ferrous Sulfate (Feosol -) 325 mg PO DAILY [facility] Last Admin: 06/08/16 10:15 Dose: 325 mg Fluticasone Propionate (Flonase -) 1 spray NS DAILY [facility] Last Admin: 06/08/16 12:22 Dose: 1 spray Losartan Potassium (Cozaar -) 50 mg PO BID [facility] Last Admin: 06/08/16 21:25 Dose: 50 mg Methylprednisolone Sodium Succinate (Solu-Medrol -) 40 mg IVPB Q8H-IV [facility] Last Admin: 06/09/16 02:50 Dose: 40 mg Metoprolol Tartrate (Lopressor -) 50 mg PO TID [facility] Last Admin: 06/09/16 06:08 Dose: 50 mg Mometasone Furoate (Asmanex 110mcg -) 1 puff IH BID [facility] Last Admin: 06/08/16 21:25 Dose: 1 puff Pyridoxine HCl (Vitamin B6 -) 50 mg PO DAILY [facility] Last Admin: 06/08/16 10:16 Dose: 50 mg Tamsulosin HCl (Flomax -) 0.4 mg PO DAILY [facility] Last Admin: 06/08/16 10:15 Dose: 0.4 mg Thiamine HCl (Vitamin B1 -) 100 mg PO DAILY [facility] Last Admin: 06/08/16 10:16 Dose: 100 mg Warfarin Sodium 2.5 mg/ (Warfarin Sodium 2 mg) 4.5 mg PO DAILY@1800 [facility] Last Admin: 06/08/16 17:00 Dose: 4.5 mg - Objective Vital Signs: Vital Signs Temperature 97.9 F 06/09/16 06:00 Pulse Rate 100 H 06/09/16 06:00 Respiratory Rate 18 06/09/16 06:00 Blood Pressure 148/88 06/09/16 06:00 O2 Sat by Pulse Oximetry (%) 98 06/08/16 22:00 Constitutional: Yes: No Distress, Calm Eyes: Yes: Conjunctiva Clear HENT: Yes: Atraumatic Neck: Yes: Supple Cardiovascular: No: Regular Rate and Rhythm Respiratory: Yes: Diminished Gastrointestinal: Yes: Soft. No: Distention, Tenderness Genitourinary: No: CVA Tenderness - Left, CVA Tenderness - Right Musculoskeletal: No: Joint Stiffness, Joint Swelling Extremities: No: Cold, Cool Edema: No Integumentary: No: Rash, Venous Stasis Changes Neurological: Yes: WNL, Alert, Oriented ...Motor Strength: WNL Psychiatric: Yes: WNL, Alert, Oriented. No: Agitated Labs: CBC, BMP 06/06/16 06:30 06/09/16 06:15 INR, PTT INR 2.66 (0.82-1.09) H 06/09/16 06:15 - ....Imaging Other: Report Reviewed Assessment/Plan The patient is an 86 year old male with a significant past medical history of COPD, A-fib, ( s/p pacemaker) CAD, HTN, HLD, sick sinus syndrome, prostate CA, diverticulitis , nephrolithiasis and prior episodes of enterococcal urosepsis and pyelonephritis , presents to the emergency department with complaint of shortness of breath and COPD exac. s/p recent discharge from the hospital for COPD exacerbation on po Prednisone but his breathing worsened; COPD exac and possible PNA/ atelectasis IV jazmine angel f/u coumadin per INR fslls pfx d/w pt and staff
[2016-06-09] MEDS ORDERED: PT OWN MED DRAWER 7, Y5N ONE ×2 (09:44→21:16)
[2016-06-09] MEDS: FLUTICASONE PROP 0.05% 16 GM NASAL SPRAY NS SCH (09:47)
[2016-06-09] MEDS: MOMETASONE FUROATE 110 MCG/IH INHALER IH SCH ×2 (09:47→21:20)
[2016-06-09] MEDS: THIAMINE HCL 100 MG TABLET (FP) PO SCH (09:47)
[2016-06-09] MEDS: LOSARTAN POTASSIUM 50 MG TABLET (FP) PO SCH ×2 (09:47→21:21)
[2016-06-09] MEDS: TAMSULOSIN HCL 0.4 MG CAP.ER.24H (FP) PO SCH (09:47)
[2016-06-09] MEDS: FERROUS SO4 325 MG TABLET (FP) PO SCH (09:47)
[2016-06-09] MEDS: CHOLECALCIFEROL (VITAMIN D3) 1,000 UNIT TABLET (FP) PO SCH (09:47)
[2016-06-09] MEDS: ASCORBIC ACID 500 MG TABLET (FP) PO SCH (09:47)
[2016-06-09] MEDS: ALLOPURINOL 100 MG TABLET (FP) PO SCH (09:47)
[2016-06-09] MEDS: PYRIDOXINE HCL (B-6) 100 MG TABLET PO SCH (09:48)
--- NOTE | 2016-06-09 13:39 | PN ---
Progress Note (short form) - Note Progress Note: PULMONARY Breathing continues to slowly improve. Last Vital Signs Temp Pulse Resp BP Pulse Ox 98.5 F 103 H 18 101/66 97 06/09/16 10:00 06/09/16 10:00 06/09/16 10:00 06/09/16 10:00 06/09/16 09:00 Gen: NAD in chair Heart: scattered rhonchi, wheezes but less Abd: soft, nontender Ext: no edema CBC, BMP 06/06/16 06:30 06/09/16 06:15 Active Medications Albuterol Sulfate (Ventolin 0.083% Nebulizer Soln -) 1 amp NEB Q4H PRN PRN Reason: SHORT OF BREATH/WHEEZING Albuterol/Ipratropium (Duoneb -) 1 amp NEB QIDR [facility] Last Admin: 06/09/16 07:00 Dose: 1 amp Allopurinol (Zyloprim -) 100 mg PO DAILY [facility] Last Admin: 06/09/16 09:47 Dose: 100 mg Ascorbic Acid (Vitamin C -) 500 mg PO DAILY [facility] Last Admin: 06/09/16 09:47 Dose: 500 mg Cholecalciferol (Vitamin D3 -) 5,000 unit PO DAILY [facility] Last Admin: 06/09/16 09:47 Dose: 5,000 unit Docusate Sodium (Colace -) 100 mg PO HS [facility] Last Admin: 06/08/16 21:25 Dose: 100 mg Ferrous Sulfate (Feosol -) 325 mg PO DAILY [facility] Last Admin: 06/09/16 09:47 Dose: 325 mg Fluticasone Propionate (Flonase -) 1 spray NS DAILY [facility] Last Admin: 06/09/16 09:47 Dose: 1 spray Losartan Potassium (Cozaar -) 50 mg PO BID [facility] Last Admin: 06/09/16 09:47 Dose: 50 mg Methylprednisolone Sodium Succinate (Solu-Medrol -) 40 mg IVPB Q8H-IV [facility] Last Admin: 06/09/16 09:48 Dose: 40 mg Metoprolol Tartrate (Lopressor -) 50 mg PO TID [facility] Last Admin: 06/09/16 13:10 Dose: 50 mg Mometasone Furoate (Asmanex 110mcg -) 1 puff IH BID [facility] Last Admin: 06/09/16 09:47 Dose: 1 puff Pyridoxine HCl (Vitamin B6 -) 50 mg PO DAILY [facility] Last Admin: 06/09/16 09:48 Dose: 50 mg Tamsulosin HCl (Flomax -) 0.4 mg PO DAILY [facility] Last Admin: 06/09/16 09:47 Dose: 0.4 mg Thiamine HCl (Vitamin B1 -) 100 mg PO DAILY [facility] Last Admin: 06/09/16 09:47 Dose: 100 mg Warfarin Sodium 2.5 mg/ (Warfarin Sodium 2 mg) 4.5 mg PO DAILY@1800 [facility] Last Admin: 06/08/16 17:00 Dose: 4.5 mg A/P Acute COPD Exacerbation Atrial Fibrillation Atelectasis HTN CKD BPH - slow medrol taper, will decrease to q12h today - inhaled bronchodilators standing and PRN - rate controlled - continue anticoaguation - O2 as needed
[2016-06-09] MEDS ORDERED: WARFARIN NA 2 MG TABLET (UD) ONE (16:50)
[2016-06-09] MEDS ORDERED: WARFARIN NA 2.5 MG TABLET (FP) ONE (16:50)
[2016-06-09] MEDS: WARFARIN NA 2.5 MG, WARFARIN NA 2 MG PO SCH (17:18)
[2016-06-09] MEDS: DOCUSATE SODIUM 100 MG CAPSULE (FP) PO SCH (21:21)
[2016-06-10] MEDS: ALBUTEROL SO4 2.5/IPRATROPIUM 0.5 INH SOL 3 ML VIAL.NEB. NEB SCH ×4 (00:21→18:03)
[2016-06-10] MEDS: METOPROLOL TARTRATE 50 MG TABLET (FP) PO SCH ×3 (06:20→22:09)
[2016-06-10] MEDS: methylPREDNISolone NA SUCC 40 MG/1 ML VIAL IVPB SCH ×2 (10:40→22:10)
[2016-06-10] MEDS: THIAMINE HCL 100 MG TABLET (FP) PO SCH (10:40)
[2016-06-10] MEDS: CHOLECALCIFEROL (VITAMIN D3) 1,000 UNIT TABLET (FP) PO SCH (10:40)
[2016-06-10] MEDS: LOSARTAN POTASSIUM 50 MG TABLET (FP) PO SCH ×2 (10:40→22:09)
[2016-06-10] MEDS: ALLOPURINOL 100 MG TABLET (FP) PO SCH (10:40)
[2016-06-10] MEDS: TAMSULOSIN HCL 0.4 MG CAP.ER.24H (FP) PO SCH (10:41)
[2016-06-10] MEDS: FERROUS SO4 325 MG TABLET (FP) PO SCH (10:41)
[2016-06-10] MEDS: MOMETASONE FUROATE 110 MCG/IH INHALER IH SCH ×2 (10:41→22:10)
[2016-06-10] MEDS: ASCORBIC ACID 500 MG TABLET (FP) PO SCH (10:41)
[2016-06-10] MEDS: FLUTICASONE PROP 0.05% 16 GM NASAL SPRAY NS SCH (10:42)
[2016-06-10] MEDS: PYRIDOXINE HCL (B-6) 100 MG TABLET PO SCH (10:46)
--- NOTE | 2016-06-10 12:49 | PN ---
Progress Note, Physician History of Present Illness: pulmonary alert,oob-chair,+alarcon,+ cough yellow sputum - Current Medication List Current Medications: Active Medications Albuterol Sulfate (Ventolin 0.083% Nebulizer Soln -) 1 amp NEB Q4H PRN PRN Reason: SHORT OF BREATH/WHEEZING Albuterol/Ipratropium (Duoneb -) 1 amp NEB QIDR [facility] Last Admin: 06/10/16 06:03 Dose: 1 amp Allopurinol (Zyloprim -) 100 mg PO DAILY [facility] Last Admin: 06/10/16 10:40 Dose: 100 mg Ascorbic Acid (Vitamin C -) 500 mg PO DAILY [facility] Last Admin: 06/10/16 10:41 Dose: 500 mg Cholecalciferol (Vitamin D3 -) 5,000 unit PO DAILY [facility] Last Admin: 06/10/16 10:40 Dose: 5,000 unit Docusate Sodium (Colace -) 100 mg PO HS [facility] Last Admin: 06/09/16 21:21 Dose: 100 mg Ferrous Sulfate (Feosol -) 325 mg PO DAILY [facility] Last Admin: 06/10/16 10:41 Dose: 325 mg Fluticasone Propionate (Flonase -) 1 spray NS DAILY [facility] Last Admin: 06/10/16 10:42 Dose: 1 spray Losartan Potassium (Cozaar -) 50 mg PO BID [facility] Last Admin: 06/10/16 10:40 Dose: 50 mg Methylprednisolone Sodium Succinate (Solu-Medrol -) 40 mg IVPB BID [facility] Last Admin: 06/10/16 10:40 Dose: 40 mg Metoprolol Tartrate (Lopressor -) 50 mg PO TID [facility] Last Admin: 06/10/16 06:20 Dose: 50 mg Mometasone Furoate (Asmanex 110mcg -) 1 puff IH BID [facility] Last Admin: 06/10/16 10:41 Dose: 1 puff Pyridoxine HCl (Vitamin B6 -) 50 mg PO DAILY [facility] Last Admin: 06/10/16 10:46 Dose: 50 mg Tamsulosin HCl (Flomax -) 0.4 mg PO DAILY [facility] Last Admin: 06/10/16 10:41 Dose: 0.4 mg Thiamine HCl (Vitamin B1 -) 100 mg PO DAILY [facility] Last Admin: 06/10/16 10:40 Dose: 100 mg Warfarin Sodium 2.5 mg/ (Warfarin Sodium 2 mg) 4.5 mg PO DAILY@1800 [facility] Last Admin: 06/09/16 17:18 Dose: 4.5 mg - Objective Vital Signs: Vital Signs Temperature 98.5 F 06/10/16 10:00 Pulse Rate 101 H 06/10/16 10:00 Respiratory Rate 18 06/10/16 10:00 Blood Pressure 112/83 06/10/16 10:00 O2 Sat by Pulse Oximetry (%) 97 06/09/16 09:00 Constitutional: Yes: Well Nourished, Calm Eyes: Yes: WNL HENT: Yes: WNL Neck: Yes: WNL Cardiovascular: Yes: Pulse Irregular, S1, S2 Respiratory: Yes: Rhonchi (scattered yaneli rhonchi) Gastrointestinal: Yes: Normal Bowel Sounds, Soft Extremities: Yes: WNL Edema: Yes Labs: CBC, BMP 06/06/16 06:30 06/09/16 06:15 INR, PTT INR 2.66 (0.82-1.09) H 06/09/16 06:15 Assessment/Plan IMP COPD EXACERBATION improving AFIB HTN BPH CKD PLAN STEROID TAPER INHALED BRONCHODILATORS O2 COUMADIN PER INR MONITOR INR,LYTES CHEST X-RAY TODAY Problem List - Problems (1) A-fib Code(s): I48.91 - UNSPECIFIED ATRIAL FIBRILLATION Qualifiers: Atrial fibrillation type: permanent Qualified Code(s): I48.2 - Chronic atrial fibrillation (2) CHF (congestive heart failure) Code(s): I50.9 - HEART FAILURE, UNSPECIFIED Qualifiers: Congestive heart failure type: diastolic Congestive heart failure chronicity: acute on chronic Qualified Code(s): I50.33 - Acute on chronic diastolic (congestive) heart failure (3) COPD exacerbation Code(s): J44.1 - CHRONIC OBSTRUCTIVE PULMONARY DISEASE W (ACUTE) EXACERBATION (4) Cholelithiasis Code(s): K80.20 - CALCULUS OF GALLBLADDER W/O CHOLECYSTITIS W/O OBSTRUCTION (5) Hypertension Code(s): I10 - ESSENTIAL (PRIMARY) HYPERTENSION Qualifiers: Hypertension type: essential hypertension
[2016-06-10] MEDS ORDERED: WARFARIN NA 2 MG TABLET (UD) ONE (18:00)
[2016-06-10] MEDS ORDERED: WARFARIN NA 2.5 MG TABLET (FP) ONE (18:01)
[2016-06-10] MEDS: WARFARIN NA 2.5 MG, WARFARIN NA 2 MG PO SCH (18:15)
--- NOTE | 2016-06-10 18:44 | PN ---
Progress Note, Physician History of Present Illness: Pt is bringing up light yellow sputum, no fever/ chills/worsening in respiratory status; pt still c/o BERGER towards the end of his walk. No CP, palp, dizziness, abd pain. - Current Medication List Current Medications: Active Medications Albuterol Sulfate (Ventolin 0.083% Nebulizer Soln -) 1 amp NEB Q4H PRN PRN Reason: SHORT OF BREATH/WHEEZING Albuterol/Ipratropium (Duoneb -) 1 amp NEB QIDR [facility] Last Admin: 06/10/16 11:10 Dose: 1 amp Allopurinol (Zyloprim -) 100 mg PO DAILY [facility] Last Admin: 06/10/16 10:40 Dose: 100 mg Ascorbic Acid (Vitamin C -) 500 mg PO DAILY [facility] Last Admin: 06/10/16 10:41 Dose: 500 mg Cholecalciferol (Vitamin D3 -) 5,000 unit PO DAILY [facility] Last Admin: 06/10/16 10:40 Dose: 5,000 unit Docusate Sodium (Colace -) 100 mg PO HS [facility] Last Admin: 06/09/16 21:21 Dose: 100 mg Ferrous Sulfate (Feosol -) 325 mg PO DAILY [facility] Last Admin: 06/10/16 10:41 Dose: 325 mg Fluticasone Propionate (Flonase -) 1 spray NS DAILY [facility] Last Admin: 06/10/16 10:42 Dose: 1 spray Losartan Potassium (Cozaar -) 50 mg PO BID [facility] Last Admin: 06/10/16 10:40 Dose: 50 mg Methylprednisolone Sodium Succinate (Solu-Medrol -) 40 mg IVPB BID [facility] Last Admin: 06/10/16 10:40 Dose: 40 mg Metoprolol Tartrate (Lopressor -) 50 mg PO TID [facility] Last Admin: 06/10/16 15:28 Dose: 50 mg Mometasone Furoate (Asmanex 110mcg -) 1 puff IH BID [facility] Last Admin: 06/10/16 10:41 Dose: 1 puff Pyridoxine HCl (Vitamin B6 -) 50 mg PO DAILY [facility] Last Admin: 06/10/16 10:46 Dose: 50 mg Tamsulosin HCl (Flomax -) 0.4 mg PO DAILY [facility] Last Admin: 06/10/16 10:41 Dose: 0.4 mg Thiamine HCl (Vitamin B1 -) 100 mg PO DAILY [facility] Last Admin: 06/10/16 10:40 Dose: 100 mg Warfarin Sodium 2.5 mg/ (Warfarin Sodium 2 mg) 4.5 mg PO DAILY@1800 [facility] Last Admin: 06/10/16 18:15 Dose: 4.5 mg - Objective Vital Signs: Vital Signs Temperature 98.5 F 06/10/16 15:15 Pulse Rate 101 H 06/10/16 15:15 Respiratory Rate 20 06/10/16 15:15 Blood Pressure 112/69 06/10/16 15:15 O2 Sat by Pulse Oximetry (%) 97 06/09/16 09:00 Constitutional: Yes: No Distress, Calm Cardiovascular: Yes: Pulse Irregular, S1, S2 Respiratory: Yes: Regular, CTA Bilaterally. No: Rales Gastrointestinal: Yes: Normal Bowel Sounds, Soft. No: Tenderness Edema: No Neurological: Yes: Alert, Oriented Labs: CBC, BMP 06/06/16 06:30 06/09/16 06:15 INR, PTT INR 2.66 (0.82-1.09) H 06/09/16 06:15 - ....Imaging Chest X-ray: Report Reviewed, Image Reviewed Problem List - Problems (1) Pneumonia Assessment/Plan: Not confirmed by Chest CT scan. Off abtx. Code(s): J18.9 - PNEUMONIA, UNSPECIFIED ORGANISM (2) COPD exacerbation Assessment/Plan: IV Solu-Medrol, slow tappering. Code(s): J44.1 - CHRONIC OBSTRUCTIVE PULMONARY DISEASE W (ACUTE) EXACERBATION (3) A-fib Assessment/Plan: F/u INR; adjust Coumadin as needed to keep INR 2 to 3 Code(s): I48.91 - UNSPECIFIED ATRIAL FIBRILLATION Qualifiers: Atrial fibrillation type: permanent Qualified Code(s): I48.2 - Chronic atrial fibrillation (4) CHF (congestive heart failure) Assessment/Plan: to monitor for pulmonary congestion Code(s): I50.9 - HEART FAILURE, UNSPECIFIED Qualifiers: Congestive heart failure type: diastolic Congestive heart failure chronicity: acute on chronic Qualified Code(s): I50.33 - Acute on chronic diastolic (congestive) heart failure (5) Urinary retention Assessment/Plan: self cath every 3 days. Code(s): R33.9 - RETENTION OF URINE, UNSPECIFIED (6) Supratherapeutic INR Code(s): R79.1 - ABNORMAL COAGULATION PROFILE Assessment/Plan AM labs.
[2016-06-10] MEDS ORDERED: PT OWN MED DRAWER 7, Y5N ONE (22:07)
[2016-06-10] MEDS: DOCUSATE SODIUM 100 MG CAPSULE (FP) PO SCH (22:09)
[2016-06-11] MEDS: ALBUTEROL SO4 2.5/IPRATROPIUM 0.5 INH SOL 3 ML VIAL.NEB. NEB SCH ×4 (06:06→18:29)
[2016-06-11] MEDS: METOPROLOL TARTRATE 50 MG TABLET (FP) PO SCH ×3 (06:26→21:20)
[2016-06-11 07:37] LABS: CALCIUM 8.3 mg/dL (8.5-10.1); COCKROFT - GAULT 35.41; CREATININE 1.8 mg/dL (0.7-1.3)
[2016-06-11 08:22] LABS: INR 3.09 (0.82-1.09); PROTHROMBIN TIME (PATIENT) 34.8 SEC (9.98-11.88)
[2016-06-11] MEDS ORDERED: PT OWN MED DRAWER 7, Y5N ONE (09:32)
[2016-06-11] MEDS: THIAMINE HCL 100 MG TABLET (FP) PO SCH (09:37)
[2016-06-11] MEDS: LOSARTAN POTASSIUM 50 MG TABLET (FP) PO SCH ×2 (09:37→21:20)
[2016-06-11] MEDS: FERROUS SO4 325 MG TABLET (FP) PO SCH (09:37)
[2016-06-11] MEDS: ALLOPURINOL 100 MG TABLET (FP) PO SCH (09:37)
[2016-06-11] MEDS: CHOLECALCIFEROL (VITAMIN D3) 1,000 UNIT TABLET (FP) PO SCH (09:37)
[2016-06-11] MEDS: methylPREDNISolone NA SUCC 40 MG/1 ML VIAL IVPB SCH ×2 (09:37→21:20)
[2016-06-11] MEDS: ASCORBIC ACID 500 MG TABLET (FP) PO SCH (09:37)
[2016-06-11] MEDS: TAMSULOSIN HCL 0.4 MG CAP.ER.24H (FP) PO SCH (09:37)
[2016-06-11] MEDS: PYRIDOXINE HCL (B-6) 50 MG TABLET (FP) PO SCH (09:38)
[2016-06-11] MEDS: MOMETASONE FUROATE 110 MCG/IH INHALER IH SCH ×2 (09:40→21:24)
[2016-06-11] MEDS: FLUTICASONE PROP 0.05% 16 GM NASAL SPRAY NS SCH (09:40)
--- NOTE | 2016-06-11 10:35 | PN ---
Progress Note, Physician History of Present Illness: Pt is bringing up light yellow sputum- less this AM. Pt. w/o fever/ chills/ worsening in respiratory status; pt still c/o BERGER towards the end of his walk. No CP, palp, dizziness, abd pain. - Current Medication List Current Medications: Active Medications Albuterol Sulfate (Ventolin 0.083% Nebulizer Soln -) 1 amp NEB Q4H PRN PRN Reason: SHORT OF BREATH/WHEEZING Albuterol/Ipratropium (Duoneb -) 1 amp NEB QIDR [facility] Last Admin: 06/11/16 06:06 Dose: 1 amp Allopurinol (Zyloprim -) 100 mg PO DAILY [facility] Last Admin: 06/11/16 09:37 Dose: 100 mg Ascorbic Acid (Vitamin C -) 500 mg PO DAILY [facility] Last Admin: 06/11/16 09:37 Dose: 500 mg Cholecalciferol (Vitamin D3 -) 5,000 unit PO DAILY [facility] Last Admin: 06/11/16 09:37 Dose: 5,000 unit Docusate Sodium (Colace -) 100 mg PO HS [facility] Last Admin: 06/10/16 22:09 Dose: 100 mg Ferrous Sulfate (Feosol -) 325 mg PO DAILY [facility] Last Admin: 06/11/16 09:37 Dose: 325 mg Fluticasone Propionate (Flonase -) 1 spray NS DAILY [facility] Last Admin: 06/11/16 09:40 Dose: 1 spray Losartan Potassium (Cozaar -) 50 mg PO BID [facility] Last Admin: 06/11/16 09:37 Dose: 50 mg Methylprednisolone Sodium Succinate (Solu-Medrol -) 40 mg IVPB BID [facility] Last Admin: 06/11/16 09:37 Dose: 40 mg Metoprolol Tartrate (Lopressor -) 50 mg PO TID [facility] Last Admin: 06/11/16 06:26 Dose: 50 mg Mometasone Furoate (Asmanex 110mcg -) 1 puff IH BID [facility] Last Admin: 06/11/16 09:40 Dose: 1 puff Pyridoxine HCl (Vitamin B6 -) 50 mg PO DAILY [facility] Last Admin: 06/11/16 09:38 Dose: 50 mg Tamsulosin HCl (Flomax -) 0.4 mg PO DAILY [facility] Last Admin: 06/11/16 09:37 Dose: 0.4 mg Thiamine HCl (Vitamin B1 -) 100 mg PO DAILY [facility] Last Admin: 06/11/16 09:37 Dose: 100 mg Warfarin Sodium 2.5 mg/ (Warfarin Sodium 2 mg) 4.5 mg PO DAILY@1800 [facility] Last Admin: 06/10/16 18:15 Dose: 4.5 mg - Objective Vital Signs: Vital Signs Temperature 97.8 F 06/11/16 06:00 Pulse Rate 81 06/11/16 06:00 Respiratory Rate 20 06/11/16 06:00 Blood Pressure 127/75 06/11/16 06:00 O2 Sat by Pulse Oximetry (%) 97 06/09/16 09:00 Constitutional: Yes: No Distress, Calm Cardiovascular: Yes: Pulse Irregular, S1, S2 Respiratory: Yes: Regular, Other (corse throughout bilat.) Gastrointestinal: Yes: Normal Bowel Sounds, Soft, Abdomen, Obese. No: Palpable Mass, Tenderness Edema: LLE: Trace, RLE: Trace Neurological: Yes: Alert, Oriented Labs: CBC, BMP 06/06/16 06:30 06/11/16 06:00 INR, PTT INR 3.09 (0.82-1.09) H 06/11/16 06:00 Problem List - Problems (1) Pneumonia Assessment/Plan: Not confirmed by Chest CT scan. Off abtx. Code(s): J18.9 - PNEUMONIA, UNSPECIFIED ORGANISM (2) COPD exacerbation Assessment/Plan: IV Solu-Medrol, slow tapering- to f/u with Pulmonary. Code(s): J44.1 - CHRONIC OBSTRUCTIVE PULMONARY DISEASE W (ACUTE) EXACERBATION (3) A-fib Assessment/Plan: F/u INR; adjust Coumadin as needed to keep INR 2 to 3. Today INR high. Code(s): I48.91 - UNSPECIFIED ATRIAL FIBRILLATION Qualifiers: Atrial fibrillation type: permanent Qualified Code(s): I48.2 - Chronic atrial fibrillation (4) CHF (congestive heart failure) Assessment/Plan: to monitor for pulmonary congestion Code(s): I50.9 - HEART FAILURE, UNSPECIFIED Qualifiers: Congestive heart failure type: diastolic Congestive heart failure chronicity: acute on chronic Qualified Code(s): I50.33 - Acute on chronic diastolic (congestive) heart failure (5) Urinary retention Assessment/Plan: self cath every 3 days. Code(s): R33.9 - RETENTION OF URINE, UNSPECIFIED (6) Supratherapeutic INR Assessment/Plan: To hold Coumadin today. Monitor INR in AM. Code(s): R79.1 - ABNORMAL COAGULATION PROFILE Assessment/Plan AM labs.
--- NOTE | 2016-06-11 12:05 | PN ---
Progress Note, Physician History of Present Illness: pulmonary alert,feeling better,-sob,-cp - Current Medication List Current Medications: Active Medications Albuterol Sulfate (Ventolin 0.083% Nebulizer Soln -) 1 amp NEB Q4H PRN PRN Reason: SHORT OF BREATH/WHEEZING Albuterol/Ipratropium (Duoneb -) 1 amp NEB QIDR [facility] Last Admin: 06/11/16 11:10 Dose: 1 amp Allopurinol (Zyloprim -) 100 mg PO DAILY [facility] Last Admin: 06/11/16 09:37 Dose: 100 mg Ascorbic Acid (Vitamin C -) 500 mg PO DAILY [facility] Last Admin: 06/11/16 09:37 Dose: 500 mg Cholecalciferol (Vitamin D3 -) 5,000 unit PO DAILY [facility] Last Admin: 06/11/16 09:37 Dose: 5,000 unit Docusate Sodium (Colace -) 100 mg PO HS [facility] Last Admin: 06/10/16 22:09 Dose: 100 mg Ferrous Sulfate (Feosol -) 325 mg PO DAILY [facility] Last Admin: 06/11/16 09:37 Dose: 325 mg Fluticasone Propionate (Flonase -) 1 spray NS DAILY [facility] Last Admin: 06/11/16 09:40 Dose: 1 spray Losartan Potassium (Cozaar -) 50 mg PO BID [facility] Last Admin: 06/11/16 09:37 Dose: 50 mg Methylprednisolone Sodium Succinate (Solu-Medrol -) 40 mg IVPB BID [facility] Last Admin: 06/11/16 09:37 Dose: 40 mg Metoprolol Tartrate (Lopressor -) 50 mg PO TID [facility] Last Admin: 06/11/16 06:26 Dose: 50 mg Mometasone Furoate (Asmanex 110mcg -) 1 puff IH BID [facility] Last Admin: 06/11/16 09:40 Dose: 1 puff Pyridoxine HCl (Vitamin B6 -) 50 mg PO DAILY [facility] Last Admin: 06/11/16 09:38 Dose: 50 mg Tamsulosin HCl (Flomax -) 0.4 mg PO DAILY [facility] Last Admin: 06/11/16 09:37 Dose: 0.4 mg Thiamine HCl (Vitamin B1 -) 100 mg PO DAILY [facility] Last Admin: 06/11/16 09:37 Dose: 100 mg Warfarin Sodium 2.5 mg/ (Warfarin Sodium 2 mg) 4.5 mg PO DAILY@1800 [facility] Last Admin: 06/10/16 18:15 Dose: 4.5 mg - Objective Vital Signs: Vital Signs Temperature 97.8 F 06/11/16 06:00 Pulse Rate 81 06/11/16 06:00 Respiratory Rate 20 06/11/16 06:00 Blood Pressure 127/75 06/11/16 06:00 O2 Sat by Pulse Oximetry (%) 97 06/09/16 09:00 Constitutional: Yes: Well Nourished, Calm Eyes: Yes: WNL HENT: Yes: WNL Neck: Yes: WNL Cardiovascular: Yes: Regular Rate and Rhythm, S1, S2 Respiratory: Yes: Diminished Gastrointestinal: Yes: Normal Bowel Sounds, Soft Extremities: Yes: WNL Edema: Yes Edema: LLE: Trace, RLE: Trace Assessment/Plan IMP COPD EXACERBATION improving AFIB HTN BPH CKD PLAN PREDNISONE 40MG INHALED BRONCHODILATORS O2 COUMADIN PER INR MONITOR INR,LYTES CHECK O2 SAT AT REST AND POST EXERCISE ON RA DR LÓEPZ Problem List - Problems (1) A-fib Code(s): I48.91 - UNSPECIFIED ATRIAL FIBRILLATION Qualifiers: Atrial fibrillation type: permanent Qualified Code(s): I48.2 - Chronic atrial fibrillation (2) CHF (congestive heart failure) Code(s): I50.9 - HEART FAILURE, UNSPECIFIED Qualifiers: Congestive heart failure type: diastolic Congestive heart failure chronicity: acute on chronic Qualified Code(s): I50.33 - Acute on chronic diastolic (congestive) heart failure (3) COPD exacerbation Code(s): J44.1 - CHRONIC OBSTRUCTIVE PULMONARY DISEASE W (ACUTE) EXACERBATION (4) Cholelithiasis Code(s): K80.20 - CALCULUS OF GALLBLADDER W/O CHOLECYSTITIS W/O OBSTRUCTION (5) Hypertension Code(s): I10 - ESSENTIAL (PRIMARY) HYPERTENSION Qualifiers: Hypertension type: essential hypertension
[2016-06-11] MEDS ORDERED: predniSONE 20 MG TABLET (UD) PO SCH (12:15)
[2016-06-11] MEDS: DOCUSATE SODIUM 100 MG CAPSULE (FP) PO SCH (21:20)
[2016-06-11] MEDS: predniSONE 20 MG TABLET (UD) PO SCH (22:00)
[2016-06-12] MEDS: METOPROLOL TARTRATE 50 MG TABLET (FP) PO SCH ×2 (06:39→13:13)
[2016-06-12 08:11] LABS: INR 2.82 (0.82-1.09); PROTHROMBIN TIME (PATIENT) 31.7 SEC (9.98-11.88)
[2016-06-12] MEDS ORDERED: PT OWN MED DRAWER 7, Y5N ONE (09:27)
[2016-06-12] MEDS: ASCORBIC ACID 500 MG TABLET (FP) PO SCH (09:57)
[2016-06-12] MEDS: THIAMINE HCL 100 MG TABLET (FP) PO SCH (09:57)
[2016-06-12] MEDS: PYRIDOXINE HCL (B-6) 50 MG TABLET (FP) PO SCH (09:57)
[2016-06-12] MEDS: LOSARTAN POTASSIUM 50 MG TABLET (FP) PO SCH (09:57)
[2016-06-12] MEDS: FERROUS SO4 325 MG TABLET (FP) PO SCH (09:57)
[2016-06-12] MEDS: TAMSULOSIN HCL 0.4 MG CAP.ER.24H (FP) PO SCH (09:57)
[2016-06-12] MEDS: ALLOPURINOL 100 MG TABLET (FP) PO SCH (09:57)
[2016-06-12] MEDS: predniSONE 20 MG TABLET (UD) PO SCH (09:57)
[2016-06-12] MEDS: CHOLECALCIFEROL (VITAMIN D3) 1,000 UNIT TABLET (FP) PO SCH (09:57)
[2016-06-12] MEDS: FLUTICASONE PROP 0.05% 16 GM NASAL SPRAY NS SCH (09:58)
[2016-06-12] MEDS: MOMETASONE FUROATE 110 MCG/IH INHALER IH SCH ×2 (09:58→10:00)
--- NOTE | 2016-06-12 11:27 | PN ---
Physical Exam: PULMONARY PROGRESS NOTE SUBJECTIVE: Patient seen and examined at bedside. Pt feels "100%" improved. He feels is at or very close to baseline and is ready to go home. Denies any SOB at rest or with exertion. Is able to walk in the halls of the hospital without SOB. OBJECTIVE: Vital Signs Temperature 97.2 F L 06/12/16 07:06 Pulse Rate 74 06/12/16 07:06 Respiratory Rate 18 06/12/16 07:06 Blood Pressure 129/88 06/12/16 07:06 O2 Sat by Pulse Oximetry (%) 98 06/11/16 21:00 GENERAL: The patient is awake, alert, and fully oriented, in no acute distress. HEAD: Normal with no signs of trauma. L forehead fuid filled cyst, nontender, no erythema, chronic. EYES: extraocular movements intact, sclera anicteric, conjunctiva clear. No ptosis. ENT: Ears normal, nares patent, moist mucous membranes. NECK: Trachea midline, full range of motion LUNGS: Breath sounds equal, clear to auscultation bilaterally, no wheezes, no crackles, no accessory muscle use. HEART: Irregularly irregular, S1, S2 ABDOMEN: Soft, nontender, nondistended, normoactive bowel sounds, no guarding, no rebound, no hepatosplenomegaly, no masses. EXTREMITIES: 2+ pulses, warm, well-perfused, no edema. NEUROLOGICAL: Normal speech, gait not observed. PSYCH: Normal mood, normal affect. SKIN: Warm, dry, normal turgor, no rashes or lesions noted Laboratory Results - last 24 hr 06/12/16 07:00 INR 2.82 H Active Medications Generic Name Dose Route Start Last Admin Trade Name Vitaliy PRN Reason Stop Dose Admin Allopurinol 100 mg 06/04/16 10:00 06/12/16 09:57 Zyloprim - PO 100 mg DAILY [facility] Administration Ascorbic Acid 500 mg 06/04/16 10:00 06/12/16 09:57 Vitamin C - PO 500 mg DAILY [facility] Administration Cholecalciferol 5,000 unit 06/04/16 10:00 06/12/16 09:57 Vitamin D3 - PO 5,000 unit DAILY [facility] Administration Docusate Sodium 100 mg 06/03/16 22:00 06/11/16 21:20 Colace - PO 100 mg HS [facility] Administration Ferrous Sulfate 325 mg 06/04/16 10:00 06/12/16 09:57 Feosol - PO 325 mg DAILY [facility] Administration Fluticasone Propionate 1 spray 06/03/16 19:15 06/12/16 09:58 Flonase - NS 1 spray DAILY [facility] Administration Losartan Potassium 50 mg 06/03/16 22:00 06/12/16 09:57 Cozaar - PO 50 mg BID [facility] Administration Metoprolol Tartrate 50 mg 06/04/16 22:00 06/12/16 06:39 Lopressor - PO 50 mg TID [facility] Administration Mometasone Furoate 1 puff 06/03/16 22:00 06/12/16 10:00 Asmanex 110mcg - IH 1 puff BID [facility] Administration Prednisone 40 mg 06/11/16 21:30 06/12/16 09:57 Deltasone - PO 40 mg DAILY [facility] Administration Pyridoxine HCl 50 mg 06/11/16 10:00 06/12/16 09:57 Vitamin B6 - PO 50 mg DAILY [facility] Administration Tamsulosin HCl 0.4 mg 06/04/16 10:00 06/12/16 09:57 Flomax - PO 0.4 mg DAILY [facility] Administration Thiamine HCl 100 mg 06/04/16 10:00 06/12/16 09:57 Vitamin B1 - PO 100 mg DAILY [facility] Administration Warfarin Sodium 2.5 mg/ 4.5 mg 06/04/16 18:00 06/10/16 18:15 Warfarin Sodium 2 mg PO 4.5 mg DAILY@1800 [facility] Administration ASSESSMENT/PLAN: 86 y/o M w/PMH of Afib (on warfarin), CAD, HTN, HLD, COPD, BPH, Prostate ca presents to ER w/ c/o SOB and cough for last two days. Admitted for COPD exacerbation. -Cough and SOB secondary to COPD exacerbation -on prednisone 40 mg po qd, taper upon discharge. -c/w asmanex, flonase -Afib -c/w warfarin to keep INR 2-3 -HTN -c/w losartan 50 mg po qd -BPH -c/w flomax 0.4 mg po qd -Dispo: D/C planning from pulmonary standpoint Problem List - Problems (1) A-fib Code(s): I48.91 - UNSPECIFIED ATRIAL FIBRILLATION Qualifiers: Atrial fibrillation type: permanent Qualified Code(s): I48.2 - Chronic atrial fibrillation (2) CHF (congestive heart failure) Code(s): I50.9 - HEART FAILURE, UNSPECIFIED Qualifiers: Congestive heart failure type: diastolic Congestive heart failure chronicity: acute on chronic Qualified Code(s): I50.33 - Acute on chronic diastolic (congestive) heart failure (3) COPD exacerbation Code(s): J44.1 - CHRONIC OBSTRUCTIVE PULMONARY DISEASE W (ACUTE) EXACERBATION (4) Cholelithiasis Code(s): K80.20 - CALCULUS OF GALLBLADDER W/O CHOLECYSTITIS W/O OBSTRUCTION (5) Hypertension Code(s): I10 - ESSENTIAL (PRIMARY) HYPERTENSION Qualifiers: Hypertension type: essential hypertension Visit type - Emergency Visit Emergency Visit: Yes ED Registration Date: 06/03/16 Care time: The patient presented to the Emergency Department on the above date and was hospitalized for further evaluation of their emergent condition. - New Patient This patient is new to me today: No - Critical Care Critical Care patient: No
[2016-06-12 11:37] VITALS: BP 113/71; PULSE 88; TEMP 97.8
[2016-06-12] MEDS ORDERED: ALBUTEROL SO4 6.7 GM HFA INHALER IH PRN (12:02)
--- NOTE | 2016-06-12 12:29 | DS ---
Physical Examination Vital Signs: Vital Signs Temperature 97.8 F 06/12/16 10:00 Pulse Rate 88 06/12/16 10:00 Respiratory Rate 18 06/12/16 10:00 Blood Pressure 113/71 06/12/16 10:00 O2 Sat by Pulse Oximetry (%) 98 06/12/16 09:00 Findings/Remarks: Pt w/o SOB, wheezing today, after walking Pt. CP, palp, abd pain. Constitutional: Yes: No Distress, Calm Cardiovascular: Yes: Regular Rate and Rhythm, S1, S2 Respiratory: Yes: Regular, CTA Bilaterally. No: Rales Gastrointestinal: Yes: Normal Bowel Sounds, Soft. No: Palpable Mass, Tenderness Edema: No Neurological: Yes: Alert, Oriented Labs: CBC, BMP 06/06/16 06:30 06/11/16 06:00 Discharge Summary Reason For Visit: COPD EXACERBATION Current Active Problems A-fib (Acute) CHF (congestive heart failure) (Acute) COPD exacerbation (Acute) Congestive heart failure with LV diastolic dysfunction, NYHA class 2 (Acute) Pneumonia (Acute) Supratherapeutic INR (Acute) Hospital Course: Pt. with recurrent CODP exacerbation, returned to ER few days after DC. Pt. was restarted on Solu-medrol, tappered slowly. Pt was seen by Pulmonary. Pt to be DC 'ed home today. Condition: Stable - Instructions Diet, Activity, Other Instructions: resume Referrals: Enrike Rivero MD [Primary Care Provider] - (next week) Casimiro Montalvo MD, MD [Staff Physician] - (this week) - Home Medications Comprehensive Discharge Medication List: Ambulatory Orders Albuterol Sulfate [Proair Respiclick] 90 mcg IH QID PRN 05/21/16 Allopurinol [Zyloprim -] 100 mg PO DAILY 05/21/16 Ascorbic Acid [Vitamin C] 500 mg PO DAILY 05/21/16 Cholecalciferol (Vitamin D3) [Vitamin D3] 5,000 unit PO DAILY 05/21/16 Docusate Sodium [Colace -] 0 mg PO HS 05/21/16 Iron 325 mg PO DAILY 05/21/16 L.acidoph,Paracasei, B.lactis [Probiotic] 1 each PO DAILY 05/21/16 Losartan Potassium 50 mg PO BID 05/21/16 Methenamine Hippurate [Hiprex [Nf] -] 1 gm PO BID 05/21/16 Metoprolol Tartrate [Lopressor] 50 mg PO TID 05/21/16 Mometasone Furoate [Asmanex 110Mcg -] 1 inh IH BID 05/21/16 Pyridoxine HCl [Vitamin B6] 50 mg PO DAILY 05/21/16 Tamsulosin HCl [Flomax] 0.4 mg PO DAILY 05/21/16 Thiamine HCl [Vitamin B1] 100 mg PO DAILY 05/21/16 Triamcinolone Acetonide 80 gm TP PRN 05/21/16 Triamcinolone Acetonide [Nasacort] 10.8 ml NS DAILY 05/21/16 Ubidecarenone [Coq-10] 100 mg PO DAILY 05/21/16 Vitamin E 400 unit PO DAILY 05/21/16 Warfarin Sodium [Coumadin] 4.5 mg PO HS 05/21/16 Prednisone [Deltasone -] 40 mg PO DAILY 06/03/16 DIRECTED
--- NOTE | 2016-06-12 14:54 | PN ---
Teaching Attending Note Name of Resident: Florian Cole ATTENDING PHYSICIAN STATEMENT I saw and evaluated the patient. I reviewed the resident's note and discussed the case with the resident. I agree with the resident's findings and plan as documented. Josse Longoria md
[2016-06-12] MEDS ORDERED: PATIENT'S OWN MEDICATION (NON-FORMULARY) (Methenamine Hippurate 1 GM) PO SCH (22:00)
[2016-06-13] MEDS ORDERED: PATIENT'S OWN MEDICATION (NON-FORMULARY) (Ubidecarenone [Coq-10] 100 MG) PO SCH (10:00)
[2016-06-13] MEDS ORDERED: LACTOBACILLUS ACIDOPHILUS 1 EACH TAB (FP) PO SCH (10:00)
[2016-06-13] MEDS ORDERED: predniSONE 10 MG TABLET (UD) PO SCH (10:00)
[2016-06-13] MEDS ORDERED: VITAMIN E 400 INTERNATIONAL-UNITS CAPSULE (FP) PO SCH (10:00)
== END 2016-06-12 13:29 | disposition home or self-care (01) | DRG 191 ==
LOC: JER 09:55 → JERBED 12:47 → J4S 06-04 15:10
PROVIDERS: ADMIT Internal Medicine; ATTEND Internal Medicine
DX: J44.1 Chronic obstructive pulmonary disease with (acute) exacerbation (principal); J98.11 Atelectasis; I13.0 Hypertensive heart and chronic kidney disease with heart failure and stage 1 through stage 4 chronic kidney disease, or unspecified chronic kidney disease; Z79.01 Long term (current) use of anticoagulants; Z95.0 Presence of cardiac pacemaker; E78.5 Hyperlipidemia, unspecified; K57.90 Diverticulosis of intestine, part unspecified, without perforation or abscess without bleeding; Z96.652 Presence of left artificial knee joint; Z96.642 Presence of left artificial hip joint; N40.0 Benign prostatic hyperplasia without lower urinary tract symptoms; Z85.46 Personal history of malignant neoplasm of prostate; Z87.891 Personal history of nicotine dependence; I48.2 Chronic atrial fibrillation; R91.1 Solitary pulmonary nodule; K80.20 Calculus of gallbladder without cholecystitis without obstruction; R79.1 Abnormal coagulation profile; N18.9 Chronic kidney disease, unspecified; I50.9 Heart failure, unspecified
CPT/HCPCS: 36415; 36600; 71010-TC; 71250-TC; 80048; 80053; 82550; 82803; 83880; 84484; 85025; 85027; 85610; 87040; 93005; 93010; 94640; 94761; 99284-25

== ENCOUNTER 2016-07-03 09:34 | Emergency (ER) | payer OTHER, BC ==
[2016-07-03 09:38] VITALS: TEMP 97.6; BMI 31.3
--- NOTE | 2016-07-03 10:07 | PDOC ---
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 As per patient, he was picking his nose. He blew his nose, placed saline drops and noted that he was bleeding initially form the right nare, which stopped but then started over the left nare and has not stopped. No clots noted. He did not feel anything on his throat. No throat pain , difficulty swallowing. He is on 4.5 mg of Coumadin and his dosage has not changed recently. Patient had an appointment with Dr. Kobi Cristobal in which he underwent outpatient labs. Results dated on reveal an H/H of 12.8/38.9 and a WBC of 17.4 and an INR of 2.8. Outpatient labs were provided by patient's ex- , who is presently at bedside. No fever, chills, weakness. No chest pain, cough, shortness of breath, lightheadedness, dizziness, visual changes, headaches, neck pain, back pain. No abdominal pain, nausea, vomiting. No urinary complaints. Allergies: Azithroymycin Past Surgical History: Permanent Pacemaker Placement. Cardiac catheterization x2 (last was on 04/2014). Colonoscopy. Cystoscopy. Tonsillectomy. Fissures. Total left knee replacement. Posterior total left hip replacement. Right sided hernia. Anterior total right hips replacement. Skin Ca biopsy. Cataracts. Social History: Former smoker (Quit approximately 20 years ago). No EtOH and recreational drug use. Primary Care Physician: Dr. Enrike Rivero [phone] Machine Driller: Dr. Steve Nixon [phone] Chiller Technician: Dr. Casimiro Montalvo [phone] Director Of Casino: Dr. Leo Del Real [phone] Oncologist: Dr. Kobi Cristobal [phone] <Dawna Henao - Last Filed: 07/03/16 11:04> - General History Source: Patient, Old Records Exam Limitations: No Limitations <Betty Garsia - Last Filed: 07/03/16 12:13> - General Chief Complaint: Nasal Bleeding Stated Complaint: NOSE BLEED Time Seen by Provider: 07/03/16 10:07 Past History <Dawna Henao - Last Filed: 07/03/16 11:04> - Past Medical History Anemia: No Asthma: No Cancer: Yes (PROSTATE,RADIATION,SEEDS) Cardiac Disorders: Yes (a.fib) CVA: No COPD: Yes CHF: No Dementia: No Diabetes: No GI Disorders: Yes (diverticulosis) Disorders: Yes (NON FUNCTIONING LEFT KIDNEY) HTN: Yes Hypercholesterolemia: Yes (DIET CONTROLLED) Liver Disease: No Seizures: No Thyroid Disease: No - Surgical History Abdominal Surgery: Yes (HERNIA-R INGUINAL) Appendectomy: Yes () Cardiac Surgery: Yes (pacemaker-1999,REPLACED 2012) Cholecystectomy: No Lung Surgery: No Neurologic Surgery: No Orthopedic Surgery: Yes (TOTAL L KNEE REPLACEMENT-2001,TOTAL LEFT HIP REPLACEMENT-2003) - Immunization History Immunization Up to Date: Yes - Psycho/Social/Smoking Cessation Hx Anxiety: No Suicidal Ideation: No Smoking Status: Yes Smoking History: Former smoker Have you smoked in the past 12 months: No Number of Cigarettes Smoked Daily: 0 If you are a former smoker, when did you quit?: 23 YRS Cigars Per Day: 0 Information on smoking cessation initiated: No Hx Alcohol Use: No Drug/Substance Use Hx: No Substance Use Type: None Hx Substance Use Treatment: No <Betty Garsia - Last Filed: 07/03/16 12:13> - Past Medical History Allergies/Adverse Reactions: Allergies Allergy/AdvReac Type Severity Reaction Status Date / Time azithromycin AdvReac Intermediate HEADACHE Verified 07/03/16 09:38 Home Medications: Ambulatory Orders Albuterol Sulfate [Proair Respiclick] 90 mcg IH QID PRN 05/21/16 Allopurinol [Zyloprim -] 100 mg PO DAILY 05/21/16 Ascorbic Acid [Vitamin C] 500 mg PO DAILY 05/21/16 Cholecalciferol (Vitamin D3) [Vitamin D3] 5,000 unit PO DAILY 05/21/16 Docusate Sodium [Colace -] 0 mg PO HS 05/21/16 Iron 325 mg PO DAILY 05/21/16 L.acidoph,Paracasei, B.lactis [Probiotic] 1 each PO DAILY 05/21/16 Losartan Potassium 50 mg PO BID 05/21/16 Methenamine Hippurate [Hiprex [Nf] -] 1 gm PO BID 05/21/16 Metoprolol Tartrate [Lopressor] 50 mg PO TID 05/21/16 Pyridoxine HCl [Vitamin B6] 50 mg PO DAILY 05/21/16 Tamsulosin HCl [Flomax] 0.4 mg PO DAILY 05/21/16 Thiamine HCl [Vitamin B1] 100 mg PO DAILY 05/21/16 Triamcinolone Acetonide [Nasacort] 10.8 ml NS DAILY 05/21/16 Ubidecarenone [Coq-10] 100 mg PO DAILY 05/21/16 Vitamin E 400 unit PO DAILY 05/21/16 Warfarin Na [Coumadin -] 4.5 mg PO DAILY@1800 tablet 06/12/16 Ciprofloxacin HCl [Cipro] 500 mg PO BID 07/03/16 Mometasone Furoate [Asmanex 220Mcg -] 1 inh IH BID 07/03/16 Omeprazole Magnesium [Prilosec] 10 mg PO DAILY 07/03/16 Review of Systems - Review of Systems Able to Perform ROS?: Yes Comments:: 07/03/16 10:36 CONSTITUTIONAL: Absent: fever, chills, diaphoresis, generalized weakness, malaise, loss of appetite HEENT: Present: Epistaxis. Absent: rhinorrhea, nasal congestion, throat pain, throat swelling, difficulty swallowing, mouth swelling, ear pain, eye pain, visual Changes CARDIOVASCULAR: Absent: chest pain, syncope, palpitations, irregular heart rate , lightheadedness, peripheral edema RESPIRATORY: Absent: cough, shortness of breath, dyspnea with exertion, orthopnea, wheezing, stridor, hemoptysis GASTROINTESTINAL:Absent: abdominal pain, abdominal distension, nausea, vomiting , diarrhea, constipation, melena, hematochezia GENITOURINARY: Absent: dysuria, frequency, urgency, hesitancy, hematuria, flank pain, genital pain MUSCULOSKELETAL: Absent: myalgia, arthralgia, joint swelling SKIN: Absent: rash, itching, pallor HEMATOLOGIC/IMMUNOLOGIC: Absent: easy bleeding, easy bruising, lymphadenopathy, frequent infections ENDOCRINE:Absent: unexplained weight gain, unexplained weight loss, heat intolerance, cold intolerance NEUROLOGIC: Absent: headache, focal weakness or paresthesias, dizziness, unsteady gait, seizure, mental status changes, bladder or bowel incontinence PSYCHIATRIC: Absent: anxiety, depression, suicidal or homicidal ideation, hallucinations <Dawna Henao - Last Filed: 07/03/16 11:04> *Physical Exam - Vital Signs Last Vital Signs Temp Pulse Resp BP Pulse Ox 97.6 F 103 H 20 153/81 100 07/03/16 09:35 07/03/16 09:35 07/03/16 09:35 07/03/16 09:35 07/03/16 09:35 - Physical Exam Comments: 07/03/16 10:07 GENERAL: Well developed, well nourished. Awake and alert. No acute distress. HEENT: Normocephalic, atraumatic. PERRLA, EOMI. No conjunctival pallor. Sclera are non-icteric. The mucosa in the left nare is friable no active bleeding in either nare. Moist mucous membranes. Oropharynx is clear. NECK: Supple. Full ROM. No JVD. CARDIOVASCULAR: Regular rate and rhythm. No murmurs, rubs, or gallops. PULMONARY: No evidence of respiratory distress. Lungs clear to auscultation bilaterally. No wheezing, rales or rhonchi. ABDOMINAL: Soft. Non-tender. Non-distended. No rebound or guarding. No organomegaly. Normoactive bowel sounds. MUSCULOSKELETAL: Normal range of motion at all joints. No bony deformities or tenderness. No CVA tenderness. EXTREMITIES: No cyanosis. No clubbing. No edema. No calf tenderness. SKIN: Warm and dry. Normal capillary refill. No rashes. No jaundice. NEUROLOGICAL: Alert, awake, appropriate. Cranial nerves 2-12 intact. Normal speech. PSYCHIATRIC: Cooperative. Good eye contact. Appropriate mood and affect. <Dawna Henao - Last Filed: 07/03/16 11:04> - Vital Signs Last Vital Signs Temp Pulse Resp BP Pulse Ox 97.6 F 103 H 20 153/81 100 07/03/16 09:35 07/03/16 09:35 07/03/16 09:35 07/03/16 09:35 07/03/16 09:35 <Betty Garsia - Last Filed: 07/03/16 12:13> ED Treatment Course - LABORATORY CBC & Chemistry Diagram: 07/03/16 10:21 07/03/16 10:21 - RADIOLOGY Radiograph Interpretation: 07/03/16 11:05 EXAM: RAD/CHEST X-RAY PORTABLE Interpreted by Dr. Jim Navarrete IMPRESSION: Single portable chest x-ray. Comparison study June 10, 2016. Left pacemaker with 2 intact leads. No evidence of pneumonia, atelectasis, pleural effusion or pneumothorax. Normal pulmonary vasculature. No evidence of bulky hilar adenopathy. Uncoiled thoracic aorta. The heart is borderline enlarged. Shallow inspiration. Intact visualized osseous structures. <Dawna Henao - Last Filed: 07/03/16 11:04> - LABORATORY CBC & Chemistry Diagram: 07/03/16 10:21 07/03/16 10:21 <Betty Garsia - Last Filed: 07/03/16 12:13> Medical Decision Making - Medical Decision Making 07/03/16 12:06 86-year-old male with history of hypertension, high cholesterol, atrial fibrillationon Coumadin, coronary artery disease who presents to the emergency department complains of epistaxis this morning after picking his nose and then blowing it. Differential diagnosis includes but is not limited to: Anterior epistaxis. Traumatic injury to low close of nasal passages, supratherapeutic INR. Anemia. Plan: 1. Labs 2. Pressure 3. Observe and reevaluate 07/03/16 12:10 Addendum: The labs were reviewed and are noted in the EMR. INR is within therapeutic range. He applied direct pressure and there has been no active bleeding over the past hour. Will discharge home. Follow-up with PCP. Return to the ED if Sx persist, worsen or new Sx arise. <Betty Garsia - Last Filed: 07/03/16 12:13> *DC/Admit/Observation/Transfer - Attestations Scribe Attestion: 07/03/16 10:07 Documentation prepared by Dawna Henao, acting as emergency medical service manager for Betty Garsia MD. <Dawna Henao - Last Filed: 07/03/16 11:04> - Discharge Dispostion Admit: No - Attestations Physician Attestion: 07/03/16 12:08 I, Dr. Betty Garsia, attest that the scribes documentation that appears above has been prepared under my direction and personally reviewed by me in its entirety. I confirmed that the note above accurately reflects all work, treatment, procedures, and medical decision-making performed by me. <Betty Garsia - Last Filed: 07/03/16 12:13> Diagnosis at time of Disposition: Epistaxis - Discharge Dispostion Disposition: HOME Condition at time of disposition: Stable - Patient Instructions Printed Discharge Instructions: DI for Nosebleed Additional Instructions: Avoid nose picking. Follow-up with PCP. Return to the ED if synptoms persist, worsen or new symptoms arise.
[2016-07-03 10:43] LABS: MCH 29.5 pg (25.7-33.7); MCHC 33.1 g/dl (32.0-35.9); MEAN CELL VOLUME 88.9 fl (80-96); MEAN PLT VOLUME 7.9 fl (7.5-11.1); PLATELET COUNT 102 K/MM3 (134-434); RDW 16.8 % (11.9-15.9); WHITE BLOOD COUNT 7.1 K/mm3 (4.0-10.0)
[2016-07-03 11:14] LABS: CALCIUM 8.3 mg/dL (8.5-10.1); COCKROFT - GAULT 44.81; CREATININE 1.5 mg/dL (0.7-1.3); MAGNESIUM 1.8 mg/dL (1.8-2.4); PHOSPHOROUS 2.3 mg/dL (2.5-4.9)
[2016-07-03 11:31] LABS: INR 2.31 (0.82-1.09); PROTHROMBIN TIME (PATIENT) 25.8 SEC (9.98-11.88)
[2016-07-03 11:34] LABS: ACTIVATED PTT 36.7 SECONDS (26.9-34.4)
[2016-07-03 12:34] VITALS: BP 141/84; PULSE 95
[2016-07-03 15:45] LABS: METAMYELOCYTE 1 % (0-2)
[2016-07-03 15:46] LABS: PLATELET ESTIMATE DECREASED (NORMAL)
== END 2016-07-03 12:35 | disposition home or self-care (01) ==
LOC: JER 09:34
DX: R04.0 Epistaxis (principal); I25.10 Atherosclerotic heart disease of native coronary artery without angina pectoris; I10 Essential (primary) hypertension; I48.91 Unspecified atrial fibrillation; Z79.01 Long term (current) use of anticoagulants; Z95.0 Presence of cardiac pacemaker; J44.9 Chronic obstructive pulmonary disease, unspecified; E78.00 Pure hypercholesterolemia, unspecified; N28.89 Other specified disorders of kidney and ureter
CPT/HCPCS: 36415; 71010-TC; 80048; 83735; 84100; 85025; 85610; 85730; 99282-25

== ENCOUNTER 2017-07-19 11:10 | Inpatient (IN) | payer OTHER, BC ==
--- NOTE | 2017-07-19 11:35 | PDOC ---
History of Present Illness - General Chief Complaint: Urinary Problem Stated Complaint: POSSIBLE UTI Time Seen by Provider: 07/19/17 11:34 - History of Present Illness Initial Comments: 07/19/17 11:40 Mr. Brown is an 87 yo male w/ pmh of HTN, HLD, CAD, afib (s/p pacemaker on coumadin), COPD, prostate carcinoma 2/2 radiation implantation ', nephrolithiasis, diverticulitis, sick sinus syndrom, urinary stricture/leakage, and previous episodes of urosepsis who presents complaining of a 3 day history of generalized weakness and a 1 day history of urinary burning and increased urinary leakage. He reports he has leakage at baseline but that it has recently been accompanied by burning which is unusual. Mr. Brown self catheterizes weekly. He called his urologist (Dr. Marie) who recommended he present to ER and would like a call before any treatment is started. The patient denies chest pain, shortness of breath, headache and dizziness. Denies fever, chills, nausea, vomit, diarrhea and constipation. Allergies: Azithromycin Past History - Past Medical History Allergies/Adverse Reactions: Allergies Allergy/AdvReac Type Severity Reaction Status Date / Time azithromycin Allergy Intermediate HEADACHE Verified 07/19/17 15:47 Home Medications: Ambulatory Orders Albuterol Sulfate [Proair Respiclick] 90 mcg IH QID PRN 05/21/16 Allopurinol [Zyloprim -] 100 mg PO DAILY 05/21/16 Ascorbic Acid [Vitamin C] 500 mg PO DAILY 05/21/16 Cholecalciferol (Vitamin D3) [Vitamin D3] 5,000 unit PO DAILY 05/21/16 Docusate Sodium [Colace -] 0 mg PO HS PRN 05/21/16 Iron 325 mg PO DAILY 05/21/16 L.acidoph,Paracasei, B.lactis [Probiotic] 1 each PO DAILY 05/21/16 Losartan Potassium 50 mg PO BID 05/21/16 Methenamine Hippurate [Hiprex [Nf] -] 1 gm PO BID 05/21/16 Metoprolol Tartrate [Lopressor] 50 mg PO TID 05/21/16 Pyridoxine HCl [Vitamin B6] 50 mg PO DAILY 05/21/16 Tamsulosin HCl [Flomax] 0.4 mg PO DAILY 05/21/16 Thiamine HCl [Vitamin B1] 100 mg PO DAILY 05/21/16 Triamcinolone Acetonide [Nasacort] 10.8 ml NS DAILY 05/21/16 Ubidecarenone [Coq-10] 100 mg PO DAILY 05/21/16 Vitamin E 400 unit PO DAILY 05/21/16 Warfarin Na [Coumadin -] 4.5 mg PO DAILY@1800 tablet 06/12/16 Ciprofloxacin HCl [Cipro] 500 mg PO ASDIR 07/03/16 Mometasone Furoate [Asmanex 220Mcg -] 1 inh IH BID 07/03/16 Anemia: No Asthma: No Cancer: Yes (PROSTATE,RADIATION,SEEDS) Cardiac Disorders: Yes (a.fib) CVA: No COPD: Yes CHF: No DVT: No Dementia: No Diabetes: No GI Disorders: Yes (diverticulosis) Disorders: Yes (NON FUNCTIONING LEFT KIDNEY) HTN: Yes Hypercholesterolemia: Yes (DIET CONTROLLED) Liver Disease: No Seizures: No Thyroid Disease: No - Surgical History Abdominal Surgery: Yes (HERNIA-R INGUINAL) Appendectomy: Yes () Cardiac Surgery: Yes (pacemaker-1999,REPLACED 2012) Cholecystectomy: No Lung Surgery: No Neurologic Surgery: No Orthopedic Surgery: Yes (TOTAL L KNEE REPLACEMENT-2001,TOTAL LEFT HIP REPLACEMENT-2003) - Immunization History Immunization Up to Date: Yes - Suicide/Smoking/Psychosocial Hx Smoking Status: Yes Smoking History: Former smoker Have you smoked in the past 12 months: No Number of Cigarettes Smoked Daily: 0 If you are a former smoker, when did you quit?: 23 YRS Cigars Per Day: 0 Information on smoking cessation initiated: No Hx Alcohol Use: No Drug/Substance Use Hx: No Substance Use Type: None Hx Substance Use Treatment: No Review of Systems - Review of Systems Comments:: 07/19/17 12:42 GENERAL/CONSTITUTIONAL: No fever or chills. No weakness. HEAD, EYES, EARS, NOSE AND THROAT: No change in vision. No ear pain or discharge. No sore throat. CARDIOVASCULAR: No chest pain or shortness of breath RESPIRATORY: No cough, wheezing, or hemoptysis. GASTROINTESTINAL: No nausea, vomiting, diarrhea or constipation. GENITOURINARY: +Pain with urinary leakage as described. MUSCULOSKELETAL: No joint or muscle swelling or pain. No neck or back pain. SKIN: No rash NEUROLOGIC: No headache, vertigo, loss of consciousness, or change in strength/ sensation. ENDOCRINE: No increased thirst. No abnormal weight change HEMATOLOGIC/LYMPHATIC: No anemia, easy bleeding, or history of blood clots. ALLERGIC/IMMUNOLOGIC: No hives or skin allergy. *Physical Exam - Vital Signs Last Vital Signs Temp Pulse Resp BP Pulse Ox 97.5 F L 92 H 18 101/55 100 07/19/17 11:14 07/19/17 11:14 07/19/17 11:14 07/19/17 11:14 07/19/17 11:14 - Physical Exam Comments: 07/19/17 12:43 GENERAL: Awake, alert, and fully oriented, in no acute distress HEAD: No signs of trauma, normocephalic, atraumatic EYES: PERRLA, EOMI, sclera anicteric, conjunctiva clear ENT: Auricles normal inspection, hearing grossly normal, nares patent, oropharynx clear without exudates. Moist mucosa NECK: Normal ROM, supple, no lymphadenopathy, JVD, or masses LUNGS: No distress, speaks full sentences, clear to auscultation bilaterally HEART: Regular rate and rhythm, normal S1 and S2, no murmurs, rubs or gallops, peripheral pulses normal and equal bilaterally. ABDOMEN: Soft, nontender, normoactive bowel sounds. No guarding, no rebound. No masses EXTREMITIES: Normal inspection, Normal range of motion, no edema. No clubbing or cyanosis. NEUROLOGICAL: Cranial nerves II through XII grossly intact. Normal speech, normal gait, no focal sensorimotor deficits SKIN: Warm, Dry, normal turgor, no rashes or lesions noted. ED Treatment Course - LABORATORY CBC & Chemistry Diagram: 07/19/17 12:31 07/19/17 12:31 Medical Decision Making - Medical Decision Making 07/19/17 12:46 Mr. Brown is an 87 yo male w/ pmh as described w/ presents w/ symptoms concerning for UTI. Dr. Marie paged. 07/19/17 14:13 Patient noted to have flagrant UTI as below. Admitting patient for further inpatient treatment. Meropenem given for treatment based on previous urinary cultures. Discussed patient w/ Dr. Marie who agrees with meropenem and will follow inpatient. 07/19/17 14:19 Patient PCP paged for admission for further care. 07/19/17 14:[address] Enrike Rivero for further evaluation. Laboratory Results - last 24 hr 07/19/17 07/19/17 07/19/17 12:06 12:31 12:31 WBC 14.5 H D RBC 3.64 L Hgb 10.3 L D Hct 31.5 L MCV 86.7 MCH 28.3 MCHC 32.6 RDW 15.2 Plt Count 180 D MPV 8.5 Total Counted 100 Neutrophils % 77.6 Neutrophils % (Manual) 80.0 Band Neutrophils % 3.0 Lymphocytes % 7.7 L D Lymphocytes % (Manual) 14.0 D Monocytes % 13.5 H Monocytes % (Manual) 3 L Eosinophils % 0.5 Basophils % 0.7 Nucleated RBC % 0 Platelet Estimate Adequate Sodium 136 Potassium 4.1 Chloride 106 Carbon Dioxide 20 L Anion Gap 10 BUN 47 H D Creatinine 4.2 H D Creat Clearance w eGFR 13.52 Random Glucose 104 Calcium 8.3 L Total Bilirubin 0.5 AST 9 L D ALT 14 D Alkaline Phosphatase 89 Total Protein 6.2 L Albumin 3.2 L Urine Color [place] Urine Appearance Turbid Urine pH 5.0 Ur Specific [place] 1.012 Urine Protein 2+ H Urine Glucose (UA) Negative Urine Ketones Negative Urine Blood 3+ H Urine Nitrite Negative Urine Bilirubin Negative Urine Urobilinogen Negative Ur Leukocyte Esterase 3+ H Urine WBC (Auto) 4241 Urine RBC (Auto) 214 *DC/Admit/Observation/Transfer Diagnosis at time of Disposition: Urinary tract infection Qualifiers: Urinary tract infection type: site unspecified Hematuria presence: with hematuria Qualified Code(s): N39.0 - Urinary tract infection, site not specified - Discharge Dispostion Decision to Admit order: Yes - Referrals - Patient Instructions - Post Discharge Activity
[2017-07-19 12:15] LABS: URINE APPEARANCE TURBID; URINE BILIRUBIN NEGATIVE (<2.0 mg/dL); URINE BLOOD 3+ (NEGATIVE); URINE COLOR AMBER; URINE GLUCOSE (UA) NEGATIVE (NEGATIVE); URINE KETONE NEGATIVE (NEGATIVE); URINE NITRITE NEGATIVE (NEGATIVE); URINE UROBILINOGEN NEGATIVE mg/dL (0.2-1.0)
[2017-07-19 12:29] LABS: URINE LEUK ESTERASE 3+ (NEGATIVE); URINE PROTEIN 2+ (NEGATIVE)
[2017-07-19 12:38] LABS: BASO % 0.7 % (0-2.0); EOS % 0.5 % (0-4.5); HEMATOCRIT 31.5 % (35.4-49); HEMOGLOBIN 10.3 GM/dL (11.7-16.9); LYMPH % 7.7 % (8-40); MCH 28.3 pg (25.7-33.7); MCHC 32.6 g/dl (32.0-35.9); MEAN CELL VOLUME 86.7 fl (80-96); MEAN PLT VOLUME 8.5 fl (7.5-11.1); MONO % 13.5 % (3.8-10.2); NEUT % 77.6 % (42.8-82.8); PLATELET COUNT 180 K/MM3 (134-434); RBC 3.64 M/mm3 (4.00-5.60); RDW 15.2 % (11.9-15.9); WHITE BLOOD COUNT 14.5 K/mm3 (4.0-10.0)
[2017-07-19 13:10] LABS: ALBUMIN 3.2 g/dl (3.4-5.0); ANION GAP 10 (8-16); BILIRUBIN,TOTAL 0.5 mg/dL (0.2-1.0); BLOOD UREA NITROGEN 47 mg/dL (7-18); CALCIUM 8.3 mg/dL (8.5-10.1); CHLORIDE 106 mmol/L (98-107); CO2 20 mmol/L (21-32); CREATININE 4.2 mg/dL (0.7-1.3); GLUCOSE,RANDOM 104 mg/dL (74-106); POTASSIUM 4.1 mmol/L (3.5-5.1); SGOT/AST 9 U/L (15-37); SGPT/ALT 14 U/L (12-78); SODIUM 136 mmol/L (136-145); TOT PROT 6.2 g/dl (6.4-8.2)
[2017-07-19 13:11] LABS: ALK PHOS 89 U/L (45-117)
[2017-07-19] MEDS ORDERED: SODIUM CHLORIDE 0.9% 1000 ML INFUS.BAG IV ONE (13:22)
[2017-07-19 14:10] LABS: PLATELET ESTIMATE ADEQUATE
[2017-07-19] MEDS ORDERED: MEROPENEM 1 GM in DEXTROSE 5%-WATER 100 ML IVPB ONE (14:18)
--- NOTE | 2017-07-19 14:40 | HP ---
Admitting History and Physical - Primary Care Physician PCP: Enrike Rivero - Admission Chief Complaint: dysuria History of Present Illness: Mr. Brown is an 87 yo male w/ pmh of HTN, HLD, CAD, afib (s/p pacemaker on coumadin), COPD, prostate carcinoma 2/2 radiation implantation ', nephrolithiasis, diverticulitis, sick sinus syndrom, urinary stricture/leakage, and previous episodes of urosepsis who presents complaining of a 3 day history of generalized weakness and a 1 day history of urinary burning and increased urinary leakage. He reports he has leakage at baseline but that it has recently been accompanied by burning which is unusual. Mr. Brown self catheterizes weekly. He called his urologist (Dr. Marie) who recommended he present to ER and would like a call before any treatment is started. d/w pt and laura Lees at bedside, d/w ER staff allergies noted History Source: Patient, Family Member, Medical Record Limitations to Obtaining History: No Limitations - Past Medical History Cardiovascular: Yes: AFIB (on AC), CAD, HTN, Hyperlipdemia, Other (SSS with PPM) Pulmonary: Yes: COPD Renal/: Yes: BPH, Cancer (prostate), Renal Calculi, Other (urinary incontinence) Heme/Onc: Yes: Cancer (prostate) - Past Surgical History Past Surgical History: Yes: Appendectomy, Hernia Repair, Joint Replacement - Smoking History Smoking history: Former smoker Have you smoked in the past 12 months: No Aproximately how many cigarettes per day: 0 If you are a former smoker, when did you quit?: 23 YRS - Alcohol/Substance Use Hx Alcohol Use: No History of Substance Use: reports: None - Social History Usual Living Arrangement: Yes: Alone ADL: Independent History of Recent Travel: No Home Medications - Allergies Allergies/Adverse Reactions: Allergies Allergy/AdvReac Type Severity Reaction Status Date / Time azithromycin Allergy Intermediate HEADACHE Verified 07/19/17 15:47 - Home Medications Home Medications: Ambulatory Orders Albuterol Sulfate [Proair Respiclick] 90 mcg IH QID PRN 05/21/16 Allopurinol [Zyloprim -] 100 mg PO DAILY 05/21/16 Ascorbic Acid [Vitamin C] 500 mg PO DAILY 05/21/16 Cholecalciferol (Vitamin D3) [Vitamin D3] 5,000 unit PO DAILY 05/21/16 Docusate Sodium [Colace -] 0 mg PO HS PRN 05/21/16 Iron 325 mg PO DAILY 05/21/16 L.acidoph,Paracasei, B.lactis [Probiotic] 1 each PO DAILY 05/21/16 Losartan Potassium 50 mg PO BID 05/21/16 Methenamine Hippurate [Hiprex [Nf] -] 1 gm PO BID 05/21/16 Metoprolol Tartrate [Lopressor] 50 mg PO TID 05/21/16 Pyridoxine HCl [Vitamin B6] 50 mg PO DAILY 05/21/16 Tamsulosin HCl [Flomax] 0.4 mg PO DAILY 05/21/16 Thiamine HCl [Vitamin B1] 100 mg PO DAILY 05/21/16 Triamcinolone Acetonide [Nasacort] 10.8 ml NS DAILY 05/21/16 Ubidecarenone [Coq-10] 100 mg PO DAILY 05/21/16 Vitamin E 400 unit PO DAILY 05/21/16 Warfarin Na [Coumadin -] 4.5 mg PO DAILY@1800 tablet 06/12/16 Ciprofloxacin HCl [Cipro] 500 mg PO ASDIR 07/03/16 Mometasone Furoate [Asmanex 220Mcg -] 1 inh IH BID 07/03/16 Family Disease History - Family Disease History Family History: Unremarkable Review of Systems - Review of Systems Constitutional: denies: Chills, Fever, Lethargy, Loss of Appetite Eyes: denies: Blind Spots, Blurred Vision, Double Vision HENT: denies: Difficult Swallowing, Epistaxis Neck: denies: Stiffness, Tenderness Cardiovascular: denies: Chest Pain, Palpitations, Shortness of Breath Respiratory: denies: Cough, SOB Gastrointestinal: denies: Abdominal Pain, Constipation, Diarrhea, Vomiting Genitourinary: reports: Burning, Dysuria, Other (urinary retention) Musculoskeletal: denies: Back Pain, Joint Swelling Neurological: denies: Change in LOC, Confusion, Dizziness Hematology/Lymphatic: denies: Easily Bruised, Excessive Bleeding Psychiatric: denies: Altered Sleep Pattern, Anxiety, Depression Physical Examination Vital Signs: Vital Signs Temperature 97.5 F L 07/19/17 11:14 Pulse Rate 92 H 07/19/17 11:14 Respiratory Rate 18 07/19/17 11:14 Blood Pressure 101/55 07/19/17 11:14 O2 Sat by Pulse Oximetry (%) 100 07/19/17 11:14 Constitutional: Yes: No Distress, Calm Eyes: Yes: Conjunctiva Clear HENT: Yes: Atraumatic Neck: Yes: Supple Cardiovascular: Yes: Regular Rate and Rhythm Respiratory: Yes: CTA Bilaterally Gastrointestinal: Yes: Soft. No: Distention, Tenderness Renal/: No: CVA Tenderness - Left, CVA Tenderness - Right Musculoskeletal: No: Joint Stiffness, Joint Swelling Extremities: No: Calf Tenderness, Cold, Cool, Cyanosis Edema: No Integumentary: No: Rash, Venous Stasis Changes Neurological: Yes: WNL, Alert, Oriented ...Motor Strength: WNL Psychiatric: Yes: WNL, Alert, Oriented. No: Agitated, Suicidal Ideation Labs: CBC, BMP 07/19/17 12:31 07/19/17 12:31 Imaging - Results Chest X-ray: Report Reviewed Other: Report Reviewed Assessment/Plan Mr. Brown is an 87 yo male w/ pmh of HTN, HLD, CAD, afib (s/p pacemaker on coumadin), COPD, prostate carcinoma 2/2 radiation implantation ', nephrolithiasis, diverticulitis, sick sinus syndrom, urinary stricture/leakage, and previous episodes of urosepsis who presents complaining of a 3 day history of generalized weakness and a 1 day history of urinary burning and increased urinary leakage. SARAH bethea advised him to come to ER in ER found to have ARF/CRF and UTI, admitted for further w/u and treatment SARAH Camp eval IV ATB per IDrenal eval f/u labs and cultures coumadin per INR d/w pt and staff, d/w pt's exwife at bedside pt agreed with treatment
[2017-07-19] MEDS ORDERED: ALBUTEROL SO4 18 GM HFA INHALER IH PRN (15:10)
--- NOTE | 2017-07-19 15:10 | PDOC ---
Attending Attestation - HPI HPI: 07/19/17 15:12 The patient is an 87 year old male with a significant PMH of urethral stricture , CAD, AFib (s/p PPM, on Coumadin), COPD, diverticulosis, prostate CA (s/p radiation seed implantation), kidney stones with subsequent damage to left kidney, and hyperlipidemia who presents to the emergency department with dysuria and increased leakage over the past day. The patient states he self- catheterizes through his penis usually and has some leakage at baseline but has noted more leakage and increased burning over the past day. He presents at the request of Dr. Marie for evaluation. Allergies: Azithromycin PCP: Dr. Enrike Rivero Onc: Dr. Cristobal - Physicial Exam PE: 07/19/17 15:12 Vitals: Triage Vital signs reviewed General Appearance: no acute distress, well nourished well developed, Cardiac: Regular rate and rhythm, no murmurs, no rubs, no gallops, Lungs: Clear to auscultation bilateral, good air movement bilaterally, Abdomen: Soft, nondistended, normal bowel sounds, nontender to palpation Extremities: Full range of motion to all extremities, no cyanosis, clubbing, or edema Skin: Warm and dry, no rashes or lesions, no petechiae Neuro: Cranial Nerves 2-12 grossly intact. Sensation intact. Psych: normal mood, normal affect - Medical Decision Making 07/19/17 15:12 The patient is an 87 year old male with a significant PMH of urethral stricture , CAD, AFib (s/p PPM, on Coumadin), COPD, diverticulosis, prostate CA (s/p radiation seed implantation), kidney stones with subsequent damage to left kidney, and hyperlipidemia who presents to the emergency department with dysuria and leakage over the past day. The patient states he self-catheterizes through his penile usually but has noted some leakage and increased burning lately. He presents at the request of Dr. Marie for evaluation. Allergies: Azithromycin PCP: Dr. Enrike Rivero Onc: Dr. Cristobal <Bunny Enriquez - Last Filed: 07/19/17 15:30> - Resident Resident Name: Sreedhar Jiang - ED Attending Attestation I have performed the following: I have examined & evaluated the patient, The case was reviewed & discussed with the resident, I agree w/resident's findings & plan, Exceptions are as noted - Medical Decision Making 07/19/17 18:27 Patient presents with dysuria. Self catheterizes. Differential diagnosis includes UTI versus urosepsis Reevaluation. Urinalysis grossly positive. White count 14.5. Based on last culture sensitivity meropenem ordered Urology has been counseled to Patient to be admitted to medicine for further management. <Kobe Morales - Last Filed: 07/19/17 18:29>
--- NOTE | 2017-07-19 15:37 | CON.GU ---
Consult - History of Present Illness History of Present Illness: 87 yo male well known to me with prostate cancer s/p XRT, sever urethral stricture disease requiring self dilation every 3 days. Now admitted with dysuria, weakness. NO fever, chills. WBC 14, creat 4.2 (baseline mid 2.0s). H/o recurrent utis-usually asymptomatic. Last positive urine culture approx 3 wks ago-Psedomonas sens to Meropenem - Past Medical History Cardio/Vascular: Yes: AFIB (on AC), CAD, HTN, Hyperlipdemia, Other (SSS with PPM ) Pulmonary: Yes: COPD Renal/: Yes: BPH, Cancer (prostate), Renal Calculi, Other (urinary retention) - Past Surgical History Past Surgical History: Yes: Appendectomy, Hernia Repair, Joint Replacement - Alcohol/Substance Use Hx Alcohol Use: No History of Substance Use: reports: None - Smoking History Smoking history: Former smoker Have you smoked in the past 12 months: No Aproximately how many cigarettes per day: 0 If you are a former smoker, when did you quit?: 23 YRS - Social History ADL: Independent History of Recent Travel: No Home Medications - Allergies Allergies/Adverse Reactions: Allergies Allergy/AdvReac Type Severity Reaction Status Date / Time azithromycin AdvReac Intermediate HEADACHE Verified 07/19/17 15:02 - Home Medications Home Medications: Ambulatory Orders Albuterol Sulfate [Proair Respiclick] 90 mcg IH QID PRN 05/21/16 Allopurinol [Zyloprim -] 100 mg PO DAILY 05/21/16 Ascorbic Acid [Vitamin C] 500 mg PO DAILY 05/21/16 Cholecalciferol (Vitamin D3) [Vitamin D3] 5,000 unit PO DAILY 05/21/16 Docusate Sodium [Colace -] 0 mg PO HS PRN 05/21/16 Iron 325 mg PO DAILY 05/21/16 L.acidoph,Paracasei, B.lactis [Probiotic] 1 each PO DAILY 05/21/16 Losartan Potassium 50 mg PO BID 05/21/16 Methenamine Hippurate [Hiprex [Nf] -] 1 gm PO BID 05/21/16 Metoprolol Tartrate [Lopressor] 50 mg PO TID 05/21/16 Pyridoxine HCl [Vitamin B6] 50 mg PO DAILY 05/21/16 Tamsulosin HCl [Flomax] 0.4 mg PO DAILY 05/21/16 Thiamine HCl [Vitamin B1] 100 mg PO DAILY 05/21/16 Triamcinolone Acetonide [Nasacort] 10.8 ml NS DAILY 05/21/16 Ubidecarenone [Coq-10] 100 mg PO DAILY 05/21/16 Vitamin E 400 unit PO DAILY 05/21/16 Warfarin Na [Coumadin -] 4.5 mg PO DAILY@1800 tablet 06/12/16 Ciprofloxacin HCl [Cipro] 500 mg PO ASDIR 07/03/16 Mometasone Furoate [Asmanex 220Mcg -] 1 inh IH BID 07/03/16 Physical Exam- Vital Signs: Vital Signs Temperature 97.5 F L 07/19/17 11:14 Pulse Rate 92 H 07/19/17 11:14 Respiratory Rate 18 07/19/17 11:14 Blood Pressure 101/55 07/19/17 11:14 O2 Sat by Pulse Oximetry (%) 100 07/19/17 11:14 Renal/: Yes: Incontinence Labs: CBC, BMP 07/19/17 12:31 07/19/17 12:31 Problem List - Problems (1) Urinary tract infection Assessment/Plan: agree with meropenem while awaiting cultures, will obtain renal/bladder sono Code(s): N39.0 - URINARY TRACT INFECTION, SITE NOT SPECIFIED Qualifiers: Urinary tract infection type: site unspecified Hematuria presence: with hematuria Qualified Code(s): N39.0 - Urinary tract infection, site not specified; R31.9 - Hematuria, unspecified
[2017-07-19 15:58] LABS: INR 2.81 (0.82-1.09); PROTHROMBIN TIME (PATIENT) 31.7 SEC (9.7-13.0)
[2017-07-19 17:14] VITALS: BMI 30.7
--- NOTE | 2017-07-19 17:31 | EKG ---
Test Reason : Blood Pressure : / mmHG Vent. Rate : 072 BPM Atrial Rate : 083 BPM P-R Int : 000 ms QRS Dur : 066 ms QT Int : 348 ms P-R-T Axes : 000 -42 -15 degrees QTc Int : 381 ms POOR DATA QUALITY, INTERPRETATION MAY BE ADVERSELY AFFECTED ATRIAL FIBRILLATION WITH OCCASIONAL ventricular-paced complexes LEFT AXIS DEVIATION LOW VOLTAGE QRS occaasional V pacing INFERIOR INFARCT , AGE UNDETERMINED CANNOT RULE OUT ANTERIOR INFARCT , AGE UNDETERMINED ABNORMAL ECG WHEN COMPARED WITH ECG OF 03-JUN-2016 10:37, NO SIGNIFICANT CHANGE WAS FOUND Confirmed by SANAZ ISIDRO MD ([id number]) on 07/19/2017 5:31:20 PM Referred By: Confirmed By:SANAZ ISIDRO MD
[2017-07-19] MEDS ORDERED: WARFARIN NA 2 MG TABLET (UD) PO SCH (18:00)
[2017-07-19] MEDS ORDERED: WARFARIN NA 2.5 MG TABLET (FP) ONE (18:04)
[2017-07-19] MEDS ORDERED: WARFARIN NA 2 MG TABLET (UD) ONE (18:04)
[2017-07-19] MEDS: WARFARIN NA 2.5 MG, WARFARIN NA 2 MG PO SCH (18:07)
[2017-07-19] MEDS ORDERED: MOMETASONE FUROATE 220 MCG/IH INHALER IH SCH (22:00)
[2017-07-19] MEDS ORDERED: PATIENT'S OWN MEDICATION (NON-FORMULARY) (Methenamine Hippurate 1 GM) PO SCH (22:00)
[2017-07-19] MEDS: METOPROLOL TARTRATE 50 MG TABLET (FP) PO SCH (22:27)
[2017-07-19] MEDS: LOSARTAN POTASSIUM 50 MG TABLET (FP) PO SCH (22:27)
--- NOTE | 2017-07-19 23:34 | CON.NEP ---
Consult - History of Present Illness History of Present Illness: h/o prostate cancer s/p XRT, severe urethral stricture disease requiring self dilation every 3 days. Admitted with dysuria, weakness. creat 4.2 (baseline mid 2.0s). - Past Medical History Cardio/Vascular: Yes: AFIB (on AC), CAD, HTN, Hyperlipdemia, Other (SSS with PPM ) Pulmonary: Yes: COPD Renal/: Yes: BPH, Cancer (prostate), Renal Calculi, Other (urinary retention) - Past Surgical History Past Surgical History: Yes: Appendectomy, Hernia Repair, Joint Replacement - Alcohol/Substance Use Hx Alcohol Use: No History of Substance Use: reports: None - Smoking History Smoking history: Former smoker Have you smoked in the past 12 months: No Aproximately how many cigarettes per day: 0 If you are a former smoker, when did you quit?: 23 YRS - Social History ADL: Independent History of Recent Travel: No Home Medications - Allergies Allergies/Adverse Reactions: Allergies Allergy/AdvReac Type Severity Reaction Status Date / Time azithromycin Allergy Intermediate HEADACHE Verified 07/19/17 15:47 - Home Medications Home Medications: Ambulatory Orders Albuterol Sulfate [Proair Respiclick] 90 mcg IH QID PRN 05/21/16 Allopurinol [Zyloprim -] 100 mg PO DAILY 05/21/16 Ascorbic Acid [Vitamin C] 500 mg PO DAILY 05/21/16 Cholecalciferol (Vitamin D3) [Vitamin D3] 5,000 unit PO DAILY 05/21/16 Docusate Sodium [Colace -] 0 mg PO HS PRN 05/21/16 Iron 325 mg PO DAILY 05/21/16 L.acidoph,Paracasei, B.lactis [Probiotic] 1 each PO DAILY 05/21/16 Losartan Potassium 50 mg PO BID 05/21/16 Methenamine Hippurate [Hiprex [Nf] -] 1 gm PO BID 05/21/16 Metoprolol Tartrate [Lopressor] 50 mg PO TID 05/21/16 Pyridoxine HCl [Vitamin B6] 50 mg PO DAILY 05/21/16 Tamsulosin HCl [Flomax] 0.4 mg PO DAILY 05/21/16 Thiamine HCl [Vitamin B1] 100 mg PO DAILY 05/21/16 Triamcinolone Acetonide [Nasacort] 10.8 ml NS DAILY 05/21/16 Ubidecarenone [Coq-10] 100 mg PO DAILY 05/21/16 Vitamin E 400 unit PO DAILY 05/21/16 Warfarin Na [Coumadin -] 4.5 mg PO DAILY@1800 tablet 06/12/16 Ciprofloxacin HCl [Cipro] 500 mg PO ASDIR 07/03/16 Mometasone Furoate [Asmanex 220Mcg -] 1 inh IH BID 07/03/16 Nephrology Consult - Height Height: 5 ft 6 in - Weight Weight: 190 lb - BMI Body Mass Index (BMI): 30.7 - Lab Results CBC,BMP: CBC, BMP 07/19/17 12:31 07/19/17 12:31 Anion Gap: Anion Gap Anion Gap 10 (8-16) 07/19/17 12:31 - Physical Examination Vital Signs: Vital Signs Temperature 97.6 F 07/19/17 16:56 Pulse Rate 82 07/19/17 16:56 Respiratory Rate 18 07/19/17 16:56 Blood Pressure 109/69 07/19/17 16:56 O2 Sat by Pulse Oximetry (%) 98 07/19/17 15:41 Assessment/Plan Current Medications Albuterol Sulfate (Ventolin Hfa Inhaler -) 90 puff IH Q6H PRN PRN Reason: SHORTNESS OF BREATH Allopurinol (Zyloprim -) 100 mg PO DAILY [facility] Ascorbic Acid (Vitamin C -) 500 mg PO DAILY [facility] Cholecalciferol (Vitamin D3 -) 5,000 unit PO DAILY [facility] Docusate Sodium (Colace -) 100 mg PO HS PRN PRN Reason: CONSTIPATION Ferrous Sulfate (Feosol -) 325 mg PO DAILY [facility] Fluticasone Propionate (Flonase -) 2 spray NS DAILY [facility] Lactobacillus Acidophilus (Bacid -) 1 tab PO DAILY [facility] Losartan Potassium (Cozaar -) 50 mg PO BID [facility] Last Admin: 07/19/17 22:27 Dose: 50 mg Metoprolol Tartrate (Lopressor -) 50 mg PO TID [facility] Last Admin: 07/19/17 22:27 Dose: 50 mg Mometasone Furoate (Asmanex 220mcg -) 1 puff IH BID [facility] Non-Formulary Medication (Methenamine Hippurate) 1 gm PO BID [facility] Pyridoxine HCl (Vitamin B6 -) 50 mg PO DAILY [facility] Tamsulosin HCl (Flomax -) 0.4 mg PO 0830 [facility] Thiamine HCl (Vitamin B1 -) 100 mg PO DAILY [facility] Vitamin E (Vitamin E -) 400 unit PO DAILY [facility] Warfarin Sodium 2.5 mg/ (Warfarin Sodium 2 mg) 4.5 mg PO DAILY@1800 [facility] Last Admin: 07/19/17 18:07 Dose: 4.5 mg IMP hemant on chronic probably prerenal 2/2 illness renal ultrasound done results pending f/u renal function
[2017-07-20] MEDS: METOPROLOL TARTRATE 50 MG TABLET (FP) PO SCH ×3 (06:14→22:06)
[2017-07-20 08:06] LABS: BASO % 0.5 % (0-2.0); HEMATOCRIT 28.5 % (35.4-49); HEMOGLOBIN 9.6 GM/dL (11.7-16.9); LYMPH % 12.1 % (8-40); MCHC 33.6 g/dl (32.0-35.9); MEAN CELL VOLUME 86.2 fl (80-96); MEAN PLT VOLUME 9.2 fl (7.5-11.1); MONO % 15.9 % (3.8-10.2); NEUT % 70.5 % (42.8-82.8); PLATELET COUNT 166 K/MM3 (134-434)
[2017-07-20 09:03] LABS: CHLORIDE 111 mmol/L (98-107); POTASSIUM 4.2 mmol/L (3.5-5.1); SODIUM 140 mmol/L (136-145)
[2017-07-20 09:23] LABS: ALBUMIN 2.8 g/dl (3.4-5.0); ALK PHOS 82 U/L (45-117); ANION GAP 8 (8-16); BILIRUBIN,TOTAL 0.5 mg/dL (0.2-1.0); BLOOD UREA NITROGEN 39 mg/dL (7-18); CALCIUM 8.2 mg/dL (8.5-10.1); CO2 21 mmol/L (21-32); CREATININE 3.7 mg/dL (0.7-1.3); GLUCOSE,RANDOM 85 mg/dL (74-106); SGOT/AST 9 U/L (15-37); SGPT/ALT 14 U/L (12-78); TOT PROT 5.4 g/dl (6.4-8.2)
[2017-07-20] MEDS ORDERED: PT OWN MED DRAWER 7, Y5N ONE ×2 (09:39→22:00)
[2017-07-20] MEDS: MULTIVITAMIN PO SCH (09:40)
[2017-07-20] MEDS: BREO IH SCH (09:40)
[2017-07-20] MEDS: COENZYME Q10 PO SCH (09:40)
[2017-07-20] MEDS: NASACORT NR SCH (09:40)
[2017-07-20] MEDS: ALLOPURINOL 100 MG TABLET (FP) PO SCH (09:41)
[2017-07-20] MEDS: VITAMIN D 2000 UNIT PO SCH (09:41)
[2017-07-20] MEDS: THIAMINE HCL 100 MG TABLET (FP) PO SCH (09:41)
[2017-07-20] MEDS: LACTOBACILLUS ACIDOPHILUS 1 TABLET PO SCH (09:41)
[2017-07-20] MEDS: FERROUS SO4 325 MG TABLET (FP) PO SCH (09:41)
[2017-07-20] MEDS: METHENAMINE HIPPURATE 1 GM PO SCH ×2 (09:41→18:02)
[2017-07-20] MEDS: ASCORBIC ACID 500 MG TABLET (FP) PO SCH (09:41)
[2017-07-20] MEDS: LOSARTAN POTASSIUM 50 MG TABLET (FP) PO SCH ×3 (09:41→22:06)
[2017-07-20] MEDS: TAMSULOSIN HCL 0.4 MG CAP.ER.24H (FP) PO SCH (09:55)
[2017-07-20] MEDS ORDERED: PYRIDOXINE HCL (B-6) 100 MG TABLET PO SCH (10:00)
[2017-07-20] MEDS ORDERED: PATIENT'S OWN MEDICATION (NON-FORMULARY) (Ubidecarenone [Coq-10] 100 MG) PO SCH (10:00)
[2017-07-20] MEDS ORDERED: FLUTICASONE PROP 0.05% 16 GM NASAL SPRAY NS SCH (10:00)
[2017-07-20] MEDS ORDERED: CHOLECALCIFEROL (VITAMIN D3) 1,000 UNIT TABLET (FP) PO SCH (10:00)
--- NOTE | 2017-07-20 10:13 | PN ---
Progress Note (short form) - Note Progress Note: ID consult dictated imp/reccd UTI urethral stricture BRIAN/ckd 87 yo with history of prostate cancer, urethral stricture, history of UTI admitted for severe dysuria no fevers or chills per urology note- recent pseudomonas uti cultures sent sonogram pending continue meropenem- adjust dose for brian/ckd f/u cultures Problem List - Problems (1) Urinary tract infection Code(s): N39.0 - URINARY TRACT INFECTION, SITE NOT SPECIFIED Qualifiers: Urinary tract infection type: site unspecified Hematuria presence: with hematuria Qualified Code(s): N39.0 - Urinary tract infection, site not specified; R31.9 - Hematuria, unspecified (2) BRIAN (acute kidney injury) Code(s): N17.9 - ACUTE KIDNEY FAILURE, UNSPECIFIED (3) Chronic kidney disease Code(s): N18.9 - CHRONIC KIDNEY DISEASE, UNSPECIFIED Qualifiers: Chronic kidney disease stage: stage 2 (mild) Qualified Code(s): N18.2 - Chronic kidney disease, stage 2 (mild) (4) Urethral stricture Code(s): N35.9 - URETHRAL STRICTURE, UNSPECIFIED
--- NOTE | 2017-07-20 11:00 | CONS ---
DATE OF CONSULTATION: DATE OF DICTATION: 07/20/2017 REQUESTED BY: Enrike Rivero MD This is an 87-year-old man with past medical history of prostate cancer, he has urethral stricture, nonfunctioning left kidney, who presented to the emergency room with severe dysuria. He was recently seen as an outpatient by Dr. Marie. He states he chronically leaks urine and was self-catheterizing himself every 3 days. He was told about 2 weeks ago to switch to self-catheterization once a week, which he had been doing. He developed severe dysuria, even when he was not catheterizing himself, and he came to the emergency room. Denies any fevers or chills, any nausea, vomiting, diarrhea. He reports, per Dr. Marie's note on the chart, he had a recent pseudomonas-positive urine culture. The patient thinks he recently took ciprofloxacin. He presented to the emergency room, where he was noted to be in acute kidney injury on top of his chronic kidney disease. He was noted to have pyuria, cultures were sent, and he was given a dose of meropenem, per Urology. I am asked to see him for further evaluation. He is currently resting comfortably. PAST MEDICAL HISTORY: Notable for nephrolithiasis with obstructive uropathy, nonfunctioning left kidney, urethral stricture requiring weekly self-catheterization, history of prostate cancer, status post radiation treatment and seed implants, history of enterococcal urosepsis and pyelonephritis in 2013, atrial fibrillation, hypertension. He, in 2016, had klebsiella urosepsis with positive urine and blood cultures. PAST SURGICAL HISTORY: Notable for appendectomy, hernia repair, and joint replacement. He also has a permanent pacemaker. SOCIAL HISTORY: He lives at home with his . Former smoker; quit 20 years ago. No history of any substance use. He is allergic to AZITHROMYCIN. MEDICATIONS AT HOME: Vitamin E; Coenzyme Q; triamcinolone; Nasacort; vitamin B1; vitamin B6; Asmanex; methenamine hippurate; probiotics; he was on ciprofloxacin as an outpatient; vitamin D; vitamin C; Flomax; Colace; ProAir; Coumadin; Lopressor; allopurinol; and losartan. REVIEW OF SYSTEMS: As per HPI. He has had no fevers or chills. He has chronic low back pain. He has no flank pain and he has had acute onset of dysuria. PHYSICAL EXAMINATION: Vital Signs: Temperature is 98, pulse is 72, blood pressure is 101/52, respiratory rate is 18. He weighs 190 pounds. HEENT: He is normocephalic. His eyes are anicteric. Neck: Supple. Lungs: Clear to auscultation. Heart: Regular rate and rhythm. Abdomen: Soft. He has no suprapubic pain. Back: He has no CVA tenderness. Extremities: Without edema. LABORATORIES: Notable for a white count yesterday of 14.5, this morning 9000; hemoglobin 9.6; platelets are 166. His BUN was 47 and creatinine 4.2 on admission; this morning, BUN 37 and creatinine 3.7. Urinalysis is 3+ leukocyte with 4241 white cells. His last culture in the computer was in the [facility] in 2017, sensitive to carbapenem. Most recently, per the Urology note, he had pseudomonas in his urine. His chest x-ray reveals cardiomegaly with a pacemaker and some plate-like atelectasis at the right base. SUMMARY: This is an 87-year-old man with history of prostate cancer, known urethral stricture, self-catheterization at home, history of urinary tract infections, in the past admitted for severe dysuria with evidence of urinary tract infection in the setting of acute kidney injury and chronic kidney disease. Would continue meropenem, adjusted dose for his kidney failure. His sonograms are all pending. Would follow up his cultures. He is being followed both by Urology and Renal at this time. Further recommendations to follow. ARABELLA DORAN M.D. [id number]
--- NOTE | 2017-07-20 11:01 | PN ---
Progress Note (short form) - Note Progress Note: feels better less dysuria WBC improving await renal/bladder sono results await culture Problem List - Problems (1) Urinary tract infection Code(s): N39.0 - URINARY TRACT INFECTION, SITE NOT SPECIFIED Qualifiers: Urinary tract infection type: site unspecified Hematuria presence: with hematuria Qualified Code(s): N39.0 - Urinary tract infection, site not specified; R31.9 - Hematuria, unspecified
--- NOTE | 2017-07-20 11:42 | PN ---
Progress Note, Physician History of Present Illness: Pt w/o fever, chills, SOB, CP, abd pain, dysuria. - Current Medication List Current Medications: Active Medications Albuterol Sulfate (Ventolin Hfa Inhaler -) 90 puff IH Q6H PRN PRN Reason: SHORTNESS OF BREATH Allopurinol (Zyloprim -) 100 mg PO DAILY [facility] Last Admin: 07/20/17 09:41 Dose: 100 mg Ascorbic Acid (Vitamin C -) 500 mg PO DAILY [facility] Last Admin: 07/20/17 09:41 Dose: 500 mg Docusate Sodium (Colace -) 100 mg PO HS PRN PRN Reason: CONSTIPATION Ferrous Sulfate (Feosol -) 325 mg PO DAILY [facility] Last Admin: 07/20/17 09:41 Dose: 325 mg Meropenem 500 mg/ Dextrose 100 mls @ 200 mls/hr IVPB BID [facility] Lactobacillus Acidophilus (Bacid -) 1 tab PO DAILY [facility] Last Admin: 07/20/17 09:41 Dose: 1 tab Losartan Potassium (Cozaar -) 50 mg PO BID [facility] Last Admin: 07/20/17 09:41 Dose: 50 mg Metoprolol Tartrate (Lopressor -) 50 mg PO TID [facility] Last Admin: 07/20/17 06:14 Dose: 50 mg Breo 200/25 Mcg Inhaler - Patient Own Med 1 each IH DAILY [facility] Last Admin: 07/20/17 09:40 Dose: 1 each Nasacort Nasal [place] (- Patient Own Med) 1 each NR DAILY [facility] Last Admin: 07/20/17 09:40 Dose: 1 each Multivitamin Tablet (- Patient Own Med) 1 each PO DAILY [facility] Last Admin: 07/20/17 09:40 Dose: 1 each Coenzyme Q10 Capsule (- Patient Own Med) 1 each PO DAILY [facility] Last Admin: 07/20/17 09:40 Dose: 1 each Methenamine Hippurate 1 Gm Tab - Patient Own Med 1 each PO BIDWM [facility] Last Admin: 07/20/17 09:41 Dose: 1 each Vitamin D 2000 Units Capsule - Patient Own Med 1 each PO DAILY [facility] Last Admin: 07/20/17 09:41 Dose: 1 each Pyridoxine HCl (Vitamin B6 -) 50 mg PO DAILY [facility] Tamsulosin HCl (Flomax -) 0.4 mg PO 0830 [facility] Last Admin: 07/20/17 09:55 Dose: 0.4 mg Thiamine HCl (Vitamin B1 -) 100 mg PO DAILY [facility] Last Admin: 07/20/17 09:41 Dose: 100 mg Vitamin E (Vitamin E -) 400 unit PO DAILY [facility] Warfarin Sodium 2.5 mg/ (Warfarin Sodium 2 mg) 4.5 mg PO DAILY@1800 [facility] Last Admin: 07/19/17 18:07 Dose: 4.5 mg - Objective Vital Signs: Vital Signs Temperature 98 F 07/20/17 10:00 Pulse Rate 72 07/20/17 10:00 Respiratory Rate 18 07/20/17 10:00 Blood Pressure 101/52 07/20/17 10:00 O2 Sat by Pulse Oximetry (%) 98 07/19/17 15:41 Constitutional: Yes: No Distress, Calm Cardiovascular: Yes: Pulse Irregular, S1, S2 Respiratory: Yes: Regular, CTA Bilaterally. No: Rales Gastrointestinal: Yes: Normal Bowel Sounds, Soft. No: Tenderness Edema: No Neurological: Yes: Alert, Oriented Labs: CBC, BMP 07/20/17 06:25 07/20/17 06:25 INR, PTT INR 2.81 (0.82-1.09) H 07/19/17 15:34 Problem List - Problems (1) BRIAN (acute kidney injury) Code(s): N17.9 - ACUTE KIDNEY FAILURE, UNSPECIFIED (2) Urinary tract infection Code(s): N39.0 - URINARY TRACT INFECTION, SITE NOT SPECIFIED Qualifiers: Urinary tract infection type: site unspecified Hematuria presence: with hematuria Qualified Code(s): N39.0 - Urinary tract infection, site not specified; R31.9 - Hematuria, unspecified (3) Urethral stricture Code(s): N35.9 - URETHRAL STRICTURE, UNSPECIFIED (4) A-fib Code(s): I48.91 - UNSPECIFIED ATRIAL FIBRILLATION Qualifiers: Atrial fibrillation type: permanent Qualified Code(s): I48.2 - Chronic atrial fibrillation (5) Prostate CA Code(s): C61 - MALIGNANT NEOPLASM OF PROSTATE (6) CHF (congestive heart failure) Code(s): I50.9 - HEART FAILURE, UNSPECIFIED Qualifiers: Qualified Code(s): I50.33 - Acute on chronic diastolic (congestive) heart failure (7) COPD exacerbation Code(s): J44.1 - CHRONIC OBSTRUCTIVE PULMONARY DISEASE W (ACUTE) EXACERBATION Assessment/Plan ID, Renal consults are appreciated Cont Meropenem. IVF OOBTC To f/u INR, Creatinine AM labs
[2017-07-20] MEDS: MEROPENEM 500 MG in DEXTROSE 5%-WATER 100 ML IVPB SCH ×2 (11:57→22:06)
[2017-07-20] MEDS: VITAMIN E 400 INTERNATIONAL-UNITS CAPSULE (FP) PO SCH ×3 (11:59→16:19)
[2017-07-20 12:17] LABS: INR 2.79 (0.82-1.09); PROTHROMBIN TIME (PATIENT) 31.5 SEC (9.7-13.0)
[2017-07-20] MEDS: DOCUSATE SODIUM 100 MG CAPSULE (FP) PO PRN (16:23)
[2017-07-20] MEDS ORDERED: WARFARIN NA 2 MG TABLET (UD) ONE (18:04)
[2017-07-20] MEDS ORDERED: WARFARIN NA 2.5 MG TABLET (FP) ONE (18:04)
[2017-07-20] MEDS: WARFARIN NA 2.5 MG, WARFARIN NA 2 MG PO SCH (18:05)
--- NOTE | 2017-07-20 18:59 | PN ---
Progress Note (short form) - Note Progress Note: brian on chronic probably prerenal 2/2 illness r/o obstructive component renal ultrasound done results pending f/u renal function Current Medications Albuterol Sulfate (Ventolin Hfa Inhaler -) 90 puff IH Q6H PRN PRN Reason: SHORTNESS OF BREATH Allopurinol (Zyloprim -) 100 mg PO DAILY [facility] Last Admin: 07/20/17 09:41 Dose: 100 mg Ascorbic Acid (Vitamin C -) 500 mg PO DAILY [facility] Last Admin: 07/20/17 09:41 Dose: 500 mg Docusate Sodium (Colace -) 100 mg PO HS PRN PRN Reason: CONSTIPATION Last Admin: 07/20/17 16:23 Dose: 100 mg Ferrous Sulfate (Feosol -) 325 mg PO DAILY [facility] Last Admin: 07/20/17 09:41 Dose: 325 mg Meropenem 500 mg/ Dextrose 100 mls @ 200 mls/hr IVPB BID [facility] Last Admin: 07/20/17 11:57 Dose: 200 mls/hr Lactobacillus Acidophilus (Bacid -) 1 tab PO DAILY [facility] Last Admin: 07/20/17 09:41 Dose: 1 tab Losartan Potassium (Cozaar -) 50 mg PO BID [facility] Last Admin: 07/20/17 14:19 Dose: Not Given Metoprolol Tartrate (Lopressor -) 50 mg PO TID [facility] Last Admin: 07/20/17 15:03 Dose: Not Given Breo 200/25 Mcg Inhaler - Patient Own Med 1 each IH DAILY [facility] Last Admin: 07/20/17 09:40 Dose: 1 each Nasacort Nasal [place] (- Patient Own Med) 1 each NR DAILY [facility] Last Admin: 07/20/17 09:40 Dose: 1 each Multivitamin Tablet (- Patient Own Med) 1 each PO DAILY [facility] Last Admin: 07/20/17 09:40 Dose: 1 each Coenzyme Q10 Capsule (- Patient Own Med) 1 each PO DAILY [facility] Last Admin: 07/20/17 09:40 Dose: 1 each Methenamine Hippurate 1 Gm Tab - Patient Own Med 1 each PO BIDWM [facility] Last Admin: 07/20/17 18:02 Dose: 1 each Vitamin D 2000 Units Capsule - Patient Own Med 1 each PO DAILY [facility] Last Admin: 07/20/17 09:41 Dose: 1 each Pyridoxine HCl (Vitamin B6 -) 50 mg PO DAILY [facility] Tamsulosin HCl (Flomax -) 0.4 mg PO 0830 [facility] Last Admin: 07/20/17 09:55 Dose: 0.4 mg Thiamine HCl (Vitamin B1 -) 100 mg PO DAILY [facility] Last Admin: 07/20/17 09:41 Dose: 100 mg Vitamin E (Vitamin E -) 400 unit PO DAILY [facility] Last Admin: 07/20/17 16:19 Dose: 400 unit Warfarin Sodium 2.5 mg/ (Warfarin Sodium 2 mg) 4.5 mg PO DAILY@1800 [facility] Last Admin: 07/20/17 18:05 Dose: 4.5 mg Last Vital Signs Temp Pulse Resp BP Pulse Ox 98.0 F 89 18 111/62 98 07/20/17 17:34 07/20/17 17:34 07/20/17 17:34 07/20/17 17:34 07/19/17 15:41 lungs clear Heart reg abd soft nontender Ext no edema CBC, BMP 07/20/17 06:25 07/20/17 06:25 IMP BRIAN on chronic renal function is improving already COPD controlled Plan- encourage oral fluids consider IV hydration if improvement does not continue
[2017-07-21] MEDS: METOPROLOL TARTRATE 50 MG TABLET (FP) PO SCH ×3 (05:47→21:42)
[2017-07-21 07:25] LABS: HEMATOCRIT 29.6 % (35.4-49); HEMOGLOBIN 10.1 GM/dL (11.7-16.9); MCH 29.2 pg (25.7-33.7); MEAN CELL VOLUME 85.8 fl (80-96); MEAN PLT VOLUME 9.2 fl (7.5-11.1); PLATELET COUNT 177 K/MM3 (134-434); RBC 3.45 M/mm3 (4.00-5.60); RDW 15.3 % (11.9-15.9); WHITE BLOOD COUNT 8.5 K/mm3 (4.0-10.0)
[2017-07-21 07:28] LABS: INR 2.6 (0.82-1.09); PROTHROMBIN TIME (PATIENT) 29.4 SEC (9.7-13.0)
[2017-07-21 07:48] LABS: CHLORIDE 112 mmol/L (98-107); POTASSIUM 4.2 mmol/L (3.5-5.1); SODIUM 140 mmol/L (136-145)
[2017-07-21 07:55] LABS: ALBUMIN 2.9 g/dl (3.4-5.0); ALK PHOS 88 U/L (45-117); ANION GAP 9 (8-16); BILIRUBIN,TOTAL 0.4 mg/dL (0.2-1.0); BLOOD UREA NITROGEN 37 mg/dL (7-18); CO2 19 mmol/L (21-32); CREATININE 3.3 mg/dL (0.7-1.3); GLUCOSE,RANDOM 88 mg/dL (74-106); SGOT/AST 7 U/L (15-37); SGPT/ALT 14 U/L (12-78); TOT PROT 5.7 g/dl (6.4-8.2)
[2017-07-21] MEDS: TAMSULOSIN HCL 0.4 MG CAP.ER.24H (FP) PO SCH (08:25)
[2017-07-21] MEDS: METHENAMINE HIPPURATE 1 GM PO SCH ×2 (08:26→17:22)
--- NOTE | 2017-07-21 08:55 | PN ---
Progress Note (short form) - Note Progress Note: burning resolved feels improved Vital Signs Period Temp Pulse Resp BP Sys/Askew Pulse Ox Last 24 Hr 97.8 F-98.1 F 72-89 18-20 101-134/52-80 96 cor-rrr llungs clear abd soft,nt ext no edema CBC, BMP 07/21/17 06:20 07/21/17 06:20 Microbiology 07/19/17 12:31 Blood - Peripheral Venous Blood Culture - Preliminary NO GROWTH OBTAINED AFTER 24 HOURS, INCUBATION TO CONTINUE FOR 4 DAYS. 07/19/17 12:31 Blood - Peripheral Venous Blood Culture - Preliminary NO GROWTH OBTAINED AFTER 24 HOURS, INCUBATION TO CONTINUE FOR 4 DAYS. 07/19/17 12:04 Urine - Urine - Catheterized Urine Culture - Final a/p UTI-negative- suspect this may all have been due to change in his catheterization schedule d/c meropenem day #2- short course po cipro/levaquin adjust for renal insuff 250 q48h for total 5 days please monitor INR while on quinolone urethral stricture BRIAN/ckd please call back if needed per urology note- recent pseudomonas uti Problem List - Problems (1) Urinary tract infection Code(s): N39.0 - URINARY TRACT INFECTION, SITE NOT SPECIFIED Qualifiers: Urinary tract infection type: site unspecified Hematuria presence: with hematuria Qualified Code(s): N39.0 - Urinary tract infection, site not specified; R31.9 - Hematuria, unspecified (2) BRIAN (acute kidney injury) Code(s): N17.9 - ACUTE KIDNEY FAILURE, UNSPECIFIED (3) Chronic kidney disease Code(s): N18.9 - CHRONIC KIDNEY DISEASE, UNSPECIFIED Qualifiers: Chronic kidney disease stage: stage 2 (mild) Qualified Code(s): N18.2 - Chronic kidney disease, stage 2 (mild) (4) Urethral stricture Code(s): N35.9 - URETHRAL STRICTURE, UNSPECIFIED
[2017-07-21] MEDS: LACTOBACILLUS ACIDOPHILUS 1 TABLET PO SCH (09:45)
[2017-07-21] MEDS: ALLOPURINOL 100 MG TABLET (FP) PO SCH (09:45)
[2017-07-21] MEDS: ASCORBIC ACID 500 MG TABLET (FP) PO SCH (09:45)
[2017-07-21] MEDS: MULTIVITAMIN PO SCH (09:45)
[2017-07-21] MEDS: THIAMINE HCL 100 MG TABLET (FP) PO SCH (09:45)
[2017-07-21] MEDS: FERROUS SO4 325 MG TABLET (FP) PO SCH (09:45)
[2017-07-21] MEDS: LOSARTAN POTASSIUM 50 MG TABLET (FP) PO SCH ×2 (09:45→21:42)
[2017-07-21] MEDS: PYRIDOXINE HCL (B-6) 50 MG TABLET (FP) PO SCH (09:46)
[2017-07-21] MEDS: VITAMIN D 2000 UNIT PO SCH (09:46)
[2017-07-21] MEDS: NASACORT NR SCH (09:46)
[2017-07-21] MEDS: BREO IH SCH (09:46)
[2017-07-21] MEDS: COENZYME Q10 PO SCH (09:46)
[2017-07-21] MEDS: VITAMIN E 400 INTERNATIONAL-UNITS CAPSULE (FP) PO SCH (09:47)
--- NOTE | 2017-07-21 12:37 | PN ---
Progress Note, Physician History of Present Illness: Pt w/o fever, chills, SOB, CP, abd pain, dysuria. - Current Medication List Current Medications: Active Medications Albuterol Sulfate (Ventolin Hfa Inhaler -) 90 puff IH Q6H PRN PRN Reason: SHORTNESS OF BREATH Allopurinol (Zyloprim -) 100 mg PO DAILY [facility] Last Admin: 07/21/17 09:45 Dose: 100 mg Ascorbic Acid (Vitamin C -) 500 mg PO DAILY [facility] Last Admin: 07/21/17 09:45 Dose: 500 mg Docusate Sodium (Colace -) 100 mg PO HS PRN PRN Reason: CONSTIPATION Last Admin: 07/20/17 16:23 Dose: 100 mg Ferrous Sulfate (Feosol -) 325 mg PO DAILY [facility] Last Admin: 07/21/17 09:45 Dose: 325 mg Lactobacillus Acidophilus (Bacid -) 1 tab PO DAILY [facility] Last Admin: 07/21/17 09:45 Dose: 1 tab Levofloxacin (Levaquin -) 250 mg PO Q2D@0600 [facility] Last Admin: 07/21/17 09:49 Dose: 250 mg Losartan Potassium (Cozaar -) 50 mg PO BID [facility] Last Admin: 07/21/17 09:45 Dose: Not Given Metoprolol Tartrate (Lopressor -) 50 mg PO TID [facility] Last Admin: 07/21/17 05:47 Dose: 50 mg Breo 200/25 Mcg Inhaler - Patient Own Med 1 each IH DAILY [facility] Last Admin: 07/21/17 09:46 Dose: 1 each Nasacort Nasal [place] (- Patient Own Med) 1 each NR DAILY [facility] Last Admin: 07/21/17 09:46 Dose: 1 each Multivitamin Tablet (- Patient Own Med) 1 each PO DAILY [facility] Last Admin: 07/21/17 09:45 Dose: 1 each Coenzyme Q10 Capsule (- Patient Own Med) 1 each PO DAILY [facility] Last Admin: 07/21/17 09:46 Dose: 1 each Methenamine Hippurate 1 Gm Tab - Patient Own Med 1 each PO BIDWM [facility] Last Admin: 07/21/17 08:26 Dose: 1 each Vitamin D 2000 Units Capsule - Patient Own Med 1 each PO DAILY [facility] Last Admin: 07/21/17 09:46 Dose: 1 each Pyridoxine HCl (Vitamin B6 -) 50 mg PO DAILY [facility] Last Admin: 07/21/17 09:46 Dose: 50 mg Tamsulosin HCl (Flomax -) 0.4 mg PO 0830 [facility] Last Admin: 07/21/17 08:25 Dose: 0.4 mg Thiamine HCl (Vitamin B1 -) 100 mg PO DAILY [facility] Last Admin: 07/21/17 09:45 Dose: 100 mg Vitamin E (Vitamin E -) 400 unit PO DAILY [facility] Last Admin: 07/21/17 09:47 Dose: 400 unit Warfarin Sodium 2.5 mg/ (Warfarin Sodium 2 mg) 4.5 mg PO DAILY@1800 [facility] Last Admin: 07/20/17 18:05 Dose: 4.5 mg - Objective Vital Signs: Vital Signs Temperature 98.1 F 07/21/17 05:31 Pulse Rate 80 07/21/17 05:31 Respiratory Rate 20 07/21/17 05:31 Blood Pressure 134/80 07/21/17 05:31 O2 Sat by Pulse Oximetry (%) 96 07/20/17 21:00 Constitutional: Yes: No Distress, Calm Cardiovascular: Yes: Regular Rate and Rhythm, S1, S2 Respiratory: Yes: Regular, CTA Bilaterally. No: Rales Gastrointestinal: Yes: Normal Bowel Sounds, Soft. No: Tenderness Edema: No Neurological: Yes: Alert, Oriented Labs: CBC, BMP 07/21/17 06:20 07/21/17 06:20 INR, PTT INR 2.60 (0.82-1.09) H 07/21/17 06:20 Problem List - Problems (1) BRIAN (acute kidney injury) Code(s): N17.9 - ACUTE KIDNEY FAILURE, UNSPECIFIED (2) Urinary tract infection Code(s): N39.0 - URINARY TRACT INFECTION, SITE NOT SPECIFIED Qualifiers: Urinary tract infection type: site unspecified Hematuria presence: with hematuria Qualified Code(s): N39.0 - Urinary tract infection, site not specified; R31.9 - Hematuria, unspecified (3) Urethral stricture Code(s): N35.9 - URETHRAL STRICTURE, UNSPECIFIED (4) A-fib Code(s): I48.91 - UNSPECIFIED ATRIAL FIBRILLATION Qualifiers: Atrial fibrillation type: permanent Qualified Code(s): I48.2 - Chronic atrial fibrillation (5) Prostate CA Code(s): C61 - MALIGNANT NEOPLASM OF PROSTATE (6) CHF (congestive heart failure) Code(s): I50.9 - HEART FAILURE, UNSPECIFIED (7) COPD exacerbation Code(s): J44.1 - CHRONIC OBSTRUCTIVE PULMONARY DISEASE W (ACUTE) EXACERBATION Assessment/Plan ID, Renal consults and f/u are appreciated per ID to change Abtx OOBTC To f/u INR, Creatinine AM labs To f/u abd CT scan Case was d/w pt and ex- (at bedside); all questions were answered. Case was d/w pt's nurse.
--- NOTE | 2017-07-21 13:38 | PN ---
Progress Note (short form) - Note Progress Note: feels better afebrile urine culture neg renal sono with rt hydro CT ordered Problem List - Problems (1) Urinary tract infection Code(s): N39.0 - URINARY TRACT INFECTION, SITE NOT SPECIFIED Qualifiers: Urinary tract infection type: site unspecified Hematuria presence: with hematuria Qualified Code(s): N39.0 - Urinary tract infection, site not specified; R31.9 - Hematuria, unspecified
[2017-07-21] MEDS ORDERED: WARFARIN NA 2 MG TABLET (UD) ONE (16:54)
[2017-07-21] MEDS ORDERED: WARFARIN NA 2.5 MG TABLET (FP) ONE (16:55)
[2017-07-21] MEDS: WARFARIN NA 2.5 MG, WARFARIN NA 2 MG PO SCH (17:22)
--- NOTE | 2017-07-21 21:44 | PN ---
Progress Note (short form) - Note Progress Note: brian on chronic probably prerenal 2/2 illness r/o obstructive component renal ultrasound done results pending f/u renal function Current Medications Albuterol Sulfate (Ventolin Hfa Inhaler -) 90 puff IH Q6H PRN PRN Reason: SHORTNESS OF BREATH Allopurinol (Zyloprim -) 100 mg PO DAILY [facility] Last Admin: 07/21/17 09:45 Dose: 100 mg Ascorbic Acid (Vitamin C -) 500 mg PO DAILY [facility] Last Admin: 07/21/17 09:45 Dose: 500 mg Docusate Sodium (Colace -) 100 mg PO HS PRN PRN Reason: CONSTIPATION Last Admin: 07/20/17 16:23 Dose: 100 mg Ferrous Sulfate (Feosol -) 325 mg PO DAILY [facility] Last Admin: 07/21/17 09:45 Dose: 325 mg Lactobacillus Acidophilus (Bacid -) 1 tab PO DAILY [facility] Last Admin: 07/21/17 09:45 Dose: 1 tab Levofloxacin (Levaquin -) 250 mg PO Q2D@0600 [facility] Last Admin: 07/21/17 09:49 Dose: 250 mg Losartan Potassium (Cozaar -) 50 mg PO BID [facility] Metoprolol Tartrate (Lopressor -) 50 mg PO TID [facility] Last Admin: 07/21/17 14:18 Dose: Not Given Breo 200/25 Mcg Inhaler - Patient Own Med 1 each IH DAILY [facility] Last Admin: 07/21/17 09:46 Dose: 1 each Nasacort Nasal [place] (- Patient Own Med) 1 each NR DAILY [facility] Last Admin: 07/21/17 09:46 Dose: 1 each Multivitamin Tablet (- Patient Own Med) 1 each PO DAILY [facility] Last Admin: 07/21/17 09:45 Dose: 1 each Coenzyme Q10 Capsule (- Patient Own Med) 1 each PO DAILY [facility] Last Admin: 07/21/17 09:46 Dose: 1 each Methenamine Hippurate 1 Gm Tab - Patient Own Med 1 each PO BIDWM [facility] Last Admin: 07/21/17 17:22 Dose: 1 each Vitamin D 2000 Units Capsule - Patient Own Med 1 each PO DAILY [facility] Last Admin: 07/21/17 09:46 Dose: 1 each Pyridoxine HCl (Vitamin B6 -) 50 mg PO DAILY [facility] Last Admin: 07/21/17 09:46 Dose: 50 mg Tamsulosin HCl (Flomax -) 0.4 mg PO 0830 [facility] Last Admin: 07/21/17 08:25 Dose: 0.4 mg Thiamine HCl (Vitamin B1 -) 100 mg PO DAILY [facility] Last Admin: 07/21/17 09:45 Dose: 100 mg Vitamin E (Vitamin E -) 400 unit PO DAILY [facility] Last Admin: 07/21/17 09:47 Dose: 400 unit Warfarin Sodium 2.5 mg/ (Warfarin Sodium 2 mg) 4.5 mg PO DAILY@1800 [facility] Last Admin: 07/21/17 17:22 Dose: 4.5 mg Last Vital Signs Temp Pulse Resp BP Pulse Ox 98.4 F 82 18 134/82 97 07/21/17 20:35 07/21/17 20:35 07/21/17 21:00 07/21/17 20:35 07/21/17 21:00 lungs clear Heart reg abd soft nontender Ext no edema CBC, BMP 07/21/17 06:20 07/21/17 06:20 CBC, BMP 07/20/17 06:25 07/20/17 06:25 IMP BRIAN on chronic renal function is improving steadily but not yet at baseline COPD controlled Plan- encourage oral fluids
[2017-07-22] MEDS: METOPROLOL TARTRATE 50 MG TABLET (FP) PO SCH ×3 (06:25→21:57)
[2017-07-22 07:41] LABS: INR 2.7 (0.82-1.09); PROTHROMBIN TIME (PATIENT) 30.5 SEC (9.7-13.0)
[2017-07-22 07:57] LABS: ANION GAP 7 (8-16); BLOOD UREA NITROGEN 33 mg/dL (7-18); CALCIUM 8.5 mg/dL (8.5-10.1); CHLORIDE 110 mmol/L (98-107); CO2 21 mmol/L (21-32); GLUCOSE,RANDOM 88 mg/dL (74-106); POTASSIUM 4.2 mmol/L (3.5-5.1); SODIUM 138 mmol/L (136-145)
[2017-07-22] MEDS: TAMSULOSIN HCL 0.4 MG CAP.ER.24H (FP) PO SCH (08:30)
[2017-07-22] MEDS: METHENAMINE HIPPURATE 1 GM PO SCH ×2 (09:00→17:35)
[2017-07-22] MEDS ORDERED: PT OWN MED DRAWER 7, Y5N ONE ×2 (09:29→18:17)
[2017-07-22] MEDS: NASACORT NR SCH (09:35)
[2017-07-22] MEDS: LACTOBACILLUS ACIDOPHILUS 1 TABLET PO SCH (09:36)
[2017-07-22] MEDS: LOSARTAN POTASSIUM 50 MG TABLET (FP) PO SCH (09:37)
[2017-07-22] MEDS: FERROUS SO4 325 MG TABLET (FP) PO SCH (09:38)
[2017-07-22] MEDS: BREO IH SCH (09:39)
--- NOTE | 2017-07-22 09:39 | PN ---
Progress Note, Physician History of Present Illness: Pt w/o fever, chills, SOB, CP, abd pain, dysuria. - Current Medication List Current Medications: Active Medications Albuterol Sulfate (Ventolin Hfa Inhaler -) 90 puff IH Q6H PRN PRN Reason: SHORTNESS OF BREATH Allopurinol (Zyloprim -) 100 mg PO DAILY [facility] Last Admin: 07/21/17 09:45 Dose: 100 mg Ascorbic Acid (Vitamin C -) 500 mg PO DAILY [facility] Last Admin: 07/21/17 09:45 Dose: 500 mg Docusate Sodium (Colace -) 100 mg PO HS PRN PRN Reason: CONSTIPATION Last Admin: 07/20/17 16:23 Dose: 100 mg Ferrous Sulfate (Feosol -) 325 mg PO DAILY [facility] Last Admin: 07/21/17 09:45 Dose: 325 mg Lactobacillus Acidophilus (Bacid -) 1 tab PO DAILY [facility] Last Admin: 07/21/17 09:45 Dose: 1 tab Levofloxacin (Levaquin -) 250 mg PO Q2D@0600 [facility] Last Admin: 07/21/17 09:49 Dose: 250 mg Losartan Potassium (Cozaar -) 50 mg PO BID [facility] Last Admin: 07/21/17 21:42 Dose: 50 mg Metoprolol Tartrate (Lopressor -) 50 mg PO TID [facility] Last Admin: 07/22/17 06:25 Dose: 50 mg Breo 200/25 Mcg Inhaler - Patient Own Med 1 each IH DAILY [facility] Last Admin: 07/21/17 09:46 Dose: 1 each Nasacort Nasal [place] (- Patient Own Med) 1 each NR DAILY [facility] Last Admin: 07/21/17 09:46 Dose: 1 each Multivitamin Tablet (- Patient Own Med) 1 each PO DAILY [facility] Last Admin: 07/21/17 09:45 Dose: 1 each Coenzyme Q10 Capsule (- Patient Own Med) 1 each PO DAILY [facility] Last Admin: 07/21/17 09:46 Dose: 1 each Methenamine Hippurate 1 Gm Tab - Patient Own Med 1 each PO BIDWM [facility] Last Admin: 07/21/17 17:22 Dose: 1 each Vitamin D 2000 Units Capsule - Patient Own Med 1 each PO DAILY [facility] Last Admin: 07/21/17 09:46 Dose: 1 each Pyridoxine HCl (Vitamin B6 -) 50 mg PO DAILY [facility] Last Admin: 07/21/17 09:46 Dose: 50 mg Tamsulosin HCl (Flomax -) 0.4 mg PO 0830 [facility] Last Admin: 07/21/17 08:25 Dose: 0.4 mg Thiamine HCl (Vitamin B1 -) 100 mg PO DAILY [facility] Last Admin: 07/21/17 09:45 Dose: 100 mg Vitamin E (Vitamin E -) 400 unit PO DAILY [facility] Last Admin: 07/21/17 09:47 Dose: 400 unit Warfarin Sodium 2.5 mg/ (Warfarin Sodium 2 mg) 4.5 mg PO DAILY@1800 [facility] Last Admin: 07/21/17 17:22 Dose: 4.5 mg - Objective Vital Signs: Vital Signs Temperature 97.8 F 07/22/17 05:18 Pulse Rate 82 07/22/17 05:18 Respiratory Rate 18 07/22/17 05:18 Blood Pressure 141/75 07/22/17 05:18 O2 Sat by Pulse Oximetry (%) 97 07/21/17 21:00 Constitutional: Yes: No Distress, Calm Cardiovascular: Yes: Pulse Irregular, S1, S2 Respiratory: Yes: Regular, CTA Bilaterally. No: Rales Gastrointestinal: Yes: Normal Bowel Sounds, Soft. No: Tenderness Edema: No Neurological: Yes: Alert, Oriented Labs: CBC, BMP 07/21/17 06:20 07/22/17 06:00 INR, PTT INR 2.70 (0.82-1.09) H 07/22/17 06:00 - ....Imaging Cat Scan: Report Reviewed Problem List - Problems (1) BRIAN (acute kidney injury) Code(s): N17.9 - ACUTE KIDNEY FAILURE, UNSPECIFIED (2) Urinary tract infection Code(s): N39.0 - URINARY TRACT INFECTION, SITE NOT SPECIFIED Qualifiers: Qualified Code(s): N39.0 - Urinary tract infection, site not specified; R31.9 - Hematuria, unspecified (3) Urethral stricture Code(s): N35.9 - URETHRAL STRICTURE, UNSPECIFIED (4) A-fib Code(s): I48.91 - UNSPECIFIED ATRIAL FIBRILLATION Qualifiers: Qualified Code(s): I48.2 - Chronic atrial fibrillation (5) Prostate CA Code(s): C61 - MALIGNANT NEOPLASM OF PROSTATE (6) CHF (congestive heart failure) Code(s): I50.9 - HEART FAILURE, UNSPECIFIED (7) COPD exacerbation Code(s): J44.1 - CHRONIC OBSTRUCTIVE PULMONARY DISEASE W (ACUTE) EXACERBATION Assessment/Plan ID, Renal consults and f/u are appreciated per ID to change Abtx OOBTC To f/u INR. Creatinine is improving AM labs Abd CT scan was reviewed with pt; pt to be seen by GI for recommendation on choledocholithiasis and CBD dilatation. Case was d/w CM Case was d/w pt's nurse.
[2017-07-22] MEDS: COENZYME Q10 PO SCH (09:40)
[2017-07-22] MEDS: MULTIVITAMIN PO SCH (09:40)
[2017-07-22] MEDS: PYRIDOXINE HCL (B-6) 50 MG TABLET (FP) PO SCH (09:41)
[2017-07-22] MEDS: VITAMIN D 2000 UNIT PO SCH (09:41)
[2017-07-22] MEDS: THIAMINE HCL 100 MG TABLET (FP) PO SCH (09:41)
[2017-07-22] MEDS: VITAMIN E 400 INTERNATIONAL-UNITS CAPSULE (FP) PO SCH (09:41)
[2017-07-22] MEDS: ASCORBIC ACID 500 MG TABLET (FP) PO SCH (09:42)
[2017-07-22] MEDS: ALLOPURINOL 100 MG TABLET (FP) PO SCH (09:42)
--- NOTE | 2017-07-22 11:49 | CON.GI ---
Consult Consult Specialty:: gastroenterology Referred by:: Dr Enrike Rivero Reason for Consultation:: Incidental finding of gallstones and probable common bile duct stones - History of Present Illness Chief Complaint: 87 y.o. M with CHF, Afib, COPD, urinary infection, on warfarin therapy, found on CT scan to have gallstones and probable distal CBD stone(s). He denies any GI symptoms. His liver chemistries are completely normal. - History Source History Provided By: Patient, Medical Record - Past Medical History Cardio/Vascular: Yes: AFIB (on AC), CAD, HTN, Hyperlipdemia, Other (SSS with PPM ) Pulmonary: Yes: COPD Renal/: Yes: BPH, Cancer (prostate), Renal Calculi, Other (urinary incontinence) - Past Surgical History Past Surgical History: Yes: Appendectomy, Hernia Repair, Joint Replacement - Alcohol/Substance Use Hx Alcohol Use: No History of Substance Use: reports: None - Smoking History Smoking history: Former smoker Have you smoked in the past 12 months: No Aproximately how many cigarettes per day: 0 If you are a former smoker, when did you quit?: 23 YRS - Social History ADL: Independent History of Recent Travel: No Home Medications - Allergies Allergies/Adverse Reactions: Allergies Allergy/AdvReac Type Severity Reaction Status Date / Time azithromycin Allergy Intermediate HEADACHE Verified 07/19/17 15:47 - Home Medications Home Medications: Ambulatory Orders Albuterol Sulfate [Proair Respiclick] 90 mcg IH QID PRN 05/21/16 Allopurinol [Zyloprim -] 100 mg PO DAILY 05/21/16 Ascorbic Acid [Vitamin C] 500 mg PO DAILY 05/21/16 Cholecalciferol (Vitamin D3) [Vitamin D3] 5,000 unit PO DAILY 05/21/16 Docusate Sodium [Colace -] 0 mg PO HS PRN 05/21/16 Iron 325 mg PO DAILY 05/21/16 L.acidoph,Paracasei, B.lactis [Probiotic] 1 each PO DAILY 05/21/16 Losartan Potassium 50 mg PO BID 05/21/16 Methenamine Hippurate [Hiprex [Nf] -] 1 gm PO BID 05/21/16 Metoprolol Tartrate [Lopressor] 50 mg PO TID 05/21/16 Pyridoxine HCl [Vitamin B6] 50 mg PO DAILY 05/21/16 Tamsulosin HCl [Flomax] 0.4 mg PO DAILY 05/21/16 Thiamine HCl [Vitamin B1] 100 mg PO DAILY 05/21/16 Triamcinolone Acetonide [Nasacort] 10.8 ml NS DAILY 05/21/16 Ubidecarenone [Coq-10] 100 mg PO DAILY 05/21/16 Vitamin E 400 unit PO DAILY 05/21/16 Warfarin Na [Coumadin -] 4.5 mg PO DAILY@1800 tablet 06/12/16 Ciprofloxacin HCl [Cipro] 500 mg PO ASDIR 07/03/16 Mometasone Furoate [Asmanex 220Mcg -] 1 inh IH BID 07/03/16 Physical Exam-GI Vital Signs: Vital Signs Temperature 97.8 F 07/22/17 05:18 Pulse Rate 82 07/22/17 05:18 Respiratory Rate 18 07/22/17 05:18 Blood Pressure 141/75 07/22/17 05:18 O2 Sat by Pulse Oximetry (%) 97 07/21/17 21:00 Constitutional: Yes: Well Nourished Cardiovascular: Yes: Pulse Irregular Respiratory: Yes: Dullness (dullness at bases) Gastrointestinal Inspection: Yes: WNL ...Auscultate: Yes: Normoactive Bowel Sounds ...Rectal Exam: Yes: Deferred Labs: CBC, BMP 07/21/17 06:20 07/22/17 06:00 INR, PTT INR 2.70 (0.82-1.09) H 07/22/17 06:00 Imaging - Results Cat Scan: Report Reviewed (Large gallstone and probable distal CBD stone(s).), Image Reviewed Problem List - Problems (1) Choledocholithiasis Code(s): K80.50 - CALCULUS OF BILE DUCT W/O CHOLANGITIS OR CHOLECYST W/O OBST Assessment/Plan 87 y.o. M on chronic anticoagulation, with CHF, found to have gallstones and probable CBD stones on CT scanning done for other reasons. On the one hand, he has no symptoms suggestive of biliary disease. On the other hand, if he developed cholangitis he would be at high risk for any emergency procedures, given his cardiorespiratory problems and his anticoagulation. Therefore I would recommend: 1) After discharge, obtain an MRCP (no gadolinium needed) to be sure whether there are CBD stones. I am mostly but not 100% convinced by the CT. 2) If CBD stones are definitely present, then I would recommend an elective ERCP with sphincterotomy and extraction of stones. He would need to be off his warfarin for that procedure, for roughly 4 days before the procedure and up to 7 -10 days afterwards. Thank you for this referral.
[2017-07-22] MEDS: DOCUSATE SODIUM 100 MG CAPSULE (FP) PO PRN (15:24)
--- NOTE | 2017-07-22 16:11 | PN ---
Progress Note (short form) - Note Progress Note: Renal follow up for BRIAN on CKD Pt seen and examined at the bedside reports feeling fatigued no sob, chest pain, abd pain making urine slowly, just dripping out, does not void a large amount at once Vital Signs Temperature 97.5 F L 07/22/17 13:39 Pulse Rate 92 H 07/22/17 13:39 Respiratory Rate 20 07/22/17 13:39 Blood Pressure 124/77 07/22/17 13:39 O2 Sat by Pulse Oximetry (%) 97 07/21/17 21:00 Intake & Output 07/19/17 07/20/17 07/21/17 07/22/17 23:59 23:59 23:59 23:59 Intake Total 490 940 240 600 Output Total 250 200 400 Balance 490 690 40 200 Weight 86.183 kg NAD awake and alert RRR CTA mild bladder distension No LE edema CBC, BMP 07/21/17 06:20 07/22/17 06:00 Current Medications Albuterol Sulfate (Ventolin Hfa Inhaler -) 90 puff IH Q6H PRN PRN Reason: SHORTNESS OF BREATH Allopurinol (Zyloprim -) 100 mg PO DAILY [facility] Last Admin: 07/22/17 09:42 Dose: 100 mg Ascorbic Acid (Vitamin C -) 500 mg PO DAILY [facility] Last Admin: 07/22/17 09:42 Dose: 500 mg Docusate Sodium (Colace -) 100 mg PO HS PRN PRN Reason: CONSTIPATION Last Admin: 07/22/17 15:24 Dose: 100 mg Ferrous Sulfate (Feosol -) 325 mg PO DAILY [facility] Last Admin: 07/22/17 09:38 Dose: 325 mg Lactobacillus Acidophilus (Bacid -) 1 tab PO DAILY [facility] Last Admin: 07/22/17 09:36 Dose: 1 tab Levofloxacin (Levaquin -) 250 mg PO Q2D@0600 [facility] Last Admin: 07/21/17 09:49 Dose: 250 mg Metoprolol Tartrate (Lopressor -) 50 mg PO TID [facility] Last Admin: 07/22/17 15:19 Dose: 50 mg Breo 200/25 Mcg Inhaler - Patient Own Med 1 each IH DAILY [facility] Last Admin: 07/22/17 09:39 Dose: 1 each Nasacort Nasal [place] (- Patient Own Med) 1 each NR DAILY [facility] Last Admin: 07/22/17 09:35 Dose: 1 each Multivitamin Tablet (- Patient Own Med) 1 each PO DAILY [facility] Last Admin: 07/22/17 09:40 Dose: 1 each Coenzyme Q10 Capsule (- Patient Own Med) 1 each PO DAILY [facility] Last Admin: 07/22/17 09:40 Dose: 1 each Methenamine Hippurate 1 Gm Tab - Patient Own Med 1 each PO BIDWM [facility] Last Admin: 07/22/17 09:00 Dose: 1 each Vitamin D 2000 Units Capsule - Patient Own Med 1 each PO DAILY [facility] Last Admin: 07/22/17 09:41 Dose: 1 each Pyridoxine HCl (Vitamin B6 -) 50 mg PO DAILY [facility] Last Admin: 07/22/17 09:41 Dose: 50 mg Tamsulosin HCl (Flomax -) 0.4 mg PO 0830 [facility] Last Admin: 07/22/17 08:30 Dose: 0.4 mg Thiamine HCl (Vitamin B1 -) 100 mg PO DAILY [facility] Last Admin: 07/22/17 09:41 Dose: 100 mg Vitamin E (Vitamin E -) 400 unit PO DAILY [facility] Last Admin: 07/22/17 09:41 Dose: 400 unit Warfarin Sodium 2.5 mg/ (Warfarin Sodium 2 mg) 4.5 mg PO DAILY@1800 [facility] Last Admin: 07/21/17 17:22 Dose: 4.5 mg 87 year old gentleman with PMhx of CKD stage 4, Prostate Ca s/p radiation Tx, Urethral strictures presented with dysuria and weakness and found to have BRIAN. 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
--- NOTE | 2017-07-22 17:09 | PN ---
Progress Note (short form) - Note Progress Note: GI Note: Case discussed with my associate Dr Graham and then with Dr Rivero. Given his advanced age and the risks of ascending cholangitis, biliary pancreatitis and liver failure and the issue of converting warfarin to heparin anticoagulation I have proposed to do the ERCP as soon as the warfarin wears off. I have informed Mason and his , Yoana of the need for ERCP and the potential for such complications as perforation, hemorrhage and ERCP induced pancreatitis which can lead to kidney and pulmonary failure aside from the severe pain and vomiting associated with it. After I answered his questions he signed an informed consent. I will stop his warfarin. I advised Dr Rivero to seek a cardiology consultation. I have scheduled the ERCP for Friday.
[2017-07-22 18:39] LABS: ALBUMIN 3.1 g/dl (3.4-5.0); ALK PHOS 91 U/L (45-117); BILIRUBIN,DIRECT < 0.2 mg/dL (0.0-0.2); BILIRUBIN,TOTAL 0.3 mg/dL (0.2-1.0); SGOT/AST 9 U/L (15-37); SGPT/ALT 15 U/L (12-78); TOT PROT 5.8 g/dl (6.4-8.2)
[2017-07-23] MEDS: METOPROLOL TARTRATE 50 MG TABLET (FP) PO SCH ×3 (05:59→21:30)
[2017-07-23 07:37] LABS: HEMATOCRIT 29.9 % (35.4-49); HEMOGLOBIN 10.2 GM/dL (11.7-16.9); MCH 29.4 pg (25.7-33.7); MCHC 34.2 g/dl (32.0-35.9); MEAN CELL VOLUME 85.7 fl (80-96); MEAN PLT VOLUME 8.9 fl (7.5-11.1); PLATELET COUNT 183 K/MM3 (134-434); RBC 3.48 M/mm3 (4.00-5.60); RDW 15.1 % (11.9-15.9); WHITE BLOOD COUNT 7.9 K/mm3 (4.0-10.0)
[2017-07-23] MEDS ORDERED: PT OWN MED DRAWER 7, Y5N ONE ×2 (08:00→10:07)
[2017-07-23 08:10] LABS: CHLORIDE 112 mmol/L (98-107); POTASSIUM 3.9 mmol/L (3.5-5.1); SODIUM 141 mmol/L (136-145)
[2017-07-23 08:18] LABS: INR 2.37 (0.82-1.09); PROTHROMBIN TIME (PATIENT) 26.8 SEC (9.7-13.0)
[2017-07-23] MEDS: TAMSULOSIN HCL 0.4 MG CAP.ER.24H (FP) PO SCH (08:28)
[2017-07-23] MEDS: METHENAMINE HIPPURATE 1 GM PO SCH ×2 (08:29→17:43)
[2017-07-23 08:30] LABS: ALK PHOS 91 U/L (45-117); BILIRUBIN,DIRECT < 0.2 mg/dL (0.0-0.2); BILIRUBIN,TOTAL 0.4 mg/dL (0.2-1.0); SGOT/AST 9 U/L (15-37); SGPT/ALT 13 U/L (12-78); TOT PROT 5.9 g/dl (6.4-8.2)
[2017-07-23 08:33] LABS: ALBUMIN 3.1 g/dl (3.4-5.0); ALK PHOS 90 U/L (45-117); ANION GAP 10 (8-16); BILIRUBIN,TOTAL 0.3 mg/dL (0.2-1.0); BLOOD UREA NITROGEN 33 mg/dL (7-18); CALCIUM 8.5 mg/dL (8.5-10.1); CO2 19 mmol/L (21-32); CREATININE 2.8 mg/dL (0.7-1.3); GLUCOSE,RANDOM 100 mg/dL (74-106); MAGNESIUM 1.9 mg/dL (1.8-2.4); PHOSPHOROUS 3.4 mg/dL (2.5-4.9); SGOT/AST 9 U/L (15-37); SGPT/ALT 13 U/L (12-78); TOT PROT 5.8 g/dl (6.4-8.2)
[2017-07-23] MEDS: ASCORBIC ACID 500 MG TABLET (FP) PO SCH (10:22)
[2017-07-23] MEDS: PYRIDOXINE HCL (B-6) 50 MG TABLET (FP) PO SCH (10:22)
[2017-07-23] MEDS: THIAMINE HCL 100 MG TABLET (FP) PO SCH (10:22)
[2017-07-23] MEDS: FERROUS SO4 325 MG TABLET (FP) PO SCH (10:22)
[2017-07-23] MEDS: ALLOPURINOL 100 MG TABLET (FP) PO SCH (10:22)
[2017-07-23] MEDS: LACTOBACILLUS ACIDOPHILUS 1 TABLET PO SCH (10:22)
[2017-07-23] MEDS: VITAMIN E 400 INTERNATIONAL-UNITS CAPSULE (FP) PO SCH (10:23)
[2017-07-23] MEDS: BREO IH SCH (10:24)
[2017-07-23] MEDS: COENZYME Q10 PO SCH (10:25)
[2017-07-23] MEDS: MULTIVITAMIN PO SCH (10:25)
[2017-07-23] MEDS: NASACORT NR SCH (10:25)
[2017-07-23] MEDS: VITAMIN D 2000 UNIT PO SCH (10:26)
--- NOTE | 2017-07-23 10:57 | PN ---
Progress Note, Physician History of Present Illness: Pt w/o fever, chills, SOB, CP, abd pain, dysuria. - Current Medication List Current Medications: Active Medications Albuterol Sulfate (Ventolin Hfa Inhaler -) 90 puff IH Q6H PRN PRN Reason: SHORTNESS OF BREATH Allopurinol (Zyloprim -) 100 mg PO DAILY [facility] Last Admin: 07/23/17 10:22 Dose: 100 mg Ascorbic Acid (Vitamin C -) 500 mg PO DAILY [facility] Last Admin: 07/23/17 10:22 Dose: 500 mg Docusate Sodium (Colace -) 100 mg PO HS PRN PRN Reason: CONSTIPATION Last Admin: 07/22/17 15:24 Dose: 100 mg Ferrous Sulfate (Feosol -) 325 mg PO DAILY [facility] Last Admin: 07/23/17 10:22 Dose: 325 mg Lactobacillus Acidophilus (Bacid -) 1 tab PO DAILY [facility] Last Admin: 07/23/17 10:22 Dose: 1 tab Levofloxacin (Levaquin -) 250 mg PO Q2D@0600 [facility] Last Admin: 07/23/17 05:59 Dose: 250 mg Metoprolol Tartrate (Lopressor -) 50 mg PO TID [facility] Last Admin: 07/23/17 05:59 Dose: 50 mg Breo 200/25 Mcg Inhaler - Patient Own Med 1 each IH DAILY [facility] Last Admin: 07/23/17 10:24 Dose: 1 each Nasacort Nasal [place] (- Patient Own Med) 1 each NR DAILY [facility] Last Admin: 07/23/17 10:25 Dose: 1 each Multivitamin Tablet (- Patient Own Med) 1 each PO DAILY [facility] Last Admin: 07/23/17 10:25 Dose: 1 each Coenzyme Q10 Capsule (- Patient Own Med) 1 each PO DAILY [facility] Last Admin: 07/23/17 10:25 Dose: 1 each Methenamine Hippurate 1 Gm Tab - Patient Own Med 1 each PO BIDWM [facility] Last Admin: 07/23/17 08:29 Dose: 1 each Vitamin D 2000 Units Capsule - Patient Own Med 1 each PO DAILY [facility] Last Admin: 07/23/17 10:26 Dose: 1 each Pyridoxine HCl (Vitamin B6 -) 50 mg PO DAILY [facility] Last Admin: 07/23/17 10:22 Dose: 50 mg Tamsulosin HCl (Flomax -) 0.4 mg PO 0830 [facility] Last Admin: 07/23/17 08:28 Dose: 0.4 mg Thiamine HCl (Vitamin B1 -) 100 mg PO DAILY [facility] Last Admin: 07/23/17 10:22 Dose: 100 mg Vitamin E (Vitamin E -) 400 unit PO DAILY [facility] Last Admin: 07/23/17 10:23 Dose: 400 unit - Objective Vital Signs: Vital Signs Temperature 98.1 F 07/23/17 09:56 Pulse Rate 67 07/23/17 09:56 Respiratory Rate 18 07/23/17 09:56 Blood Pressure 101/55 07/23/17 09:56 O2 Sat by Pulse Oximetry (%) 96 07/22/17 21:00 Constitutional: Yes: No Distress, Calm Cardiovascular: Yes: Regular Rate and Rhythm, S1, S2 Respiratory: Yes: Regular, CTA Bilaterally. No: Rales Gastrointestinal: Yes: Normal Bowel Sounds, Soft. No: Hepatomegaly, Splenomegaly, Tenderness Edema: No Neurological: Yes: Alert, Oriented Labs: CBC, BMP 07/23/17 06:00 07/23/17 06:00 INR, PTT INR 2.37 (0.82-1.09) H 07/23/17 06:00 Problem List - Problems (1) BRIAN (acute kidney injury) Code(s): N17.9 - ACUTE KIDNEY FAILURE, UNSPECIFIED (2) Urinary tract infection Code(s): N39.0 - URINARY TRACT INFECTION, SITE NOT SPECIFIED Qualifiers: Urinary tract infection type: site unspecified Hematuria presence: with hematuria Qualified Code(s): N39.0 - Urinary tract infection, site not specified; R31.9 - Hematuria, unspecified (3) Urethral stricture Code(s): N35.9 - URETHRAL STRICTURE, UNSPECIFIED (4) A-fib Code(s): I48.91 - UNSPECIFIED ATRIAL FIBRILLATION Qualifiers: Atrial fibrillation type: permanent Qualified Code(s): I48.2 - Chronic atrial fibrillation (5) Prostate CA Code(s): C61 - MALIGNANT NEOPLASM OF PROSTATE (6) CHF (congestive heart failure) Code(s): I50.9 - HEART FAILURE, UNSPECIFIED (7) COPD exacerbation Code(s): J44.1 - CHRONIC OBSTRUCTIVE PULMONARY DISEASE W (ACUTE) EXACERBATION (8) Choledocholithiasis Code(s): K80.50 - CALCULUS OF BILE DUCT W/O CHOLANGITIS OR CHOLECYST W/O OBST (9) Dilated cbd, acquired Assessment/Plan: secondary to CBD stone Code(s): K83.8 - OTHER SPECIFIED DISEASES OF BILIARY TRACT Assessment/Plan ID, Renal, , GI consults and f/u are appreciated. Case was d/w Dr. Bhatt; pt needs ERCP this admission- cannot be done as outpatient; Coumadin was held; to monitor INR and start IV Heparin drip when INR is less than 2.0 Cardiology (Dr. Colon) to see this AM; case was reviewed. OOBTC To f/u INR. Creatinine is improving AM labs Case was d/w pt's nurse.
--- NOTE | 2017-07-23 11:14 | CON.CARD ---
Consult Consult Specialty:: Cardiology Referred by:: Enrike Rivero MD Reason for Consultation:: Pre-procedure cardiovascular evaluation - History of Present Illness Chief Complaint: Cholelithiasis History of Present Illness: Patient is an 87 year old male with underlying history of non-obstructive CAD, S /P PCI, angina pectoris, diastolic left ventricular dysfunction with class 1 NYHA classification heart failure, permanent atrial fibrillation on chronic anticoagulation [id number] of 5, sick sinus syndrome with PPM, HTN/HCVD, hypercholesterolemia, CKD, nephrolithiasis, recurrent UTI and degenerative lumbosacral disc disease. He presented with bladder outlet obstruction, acute on CKD, UTI, bilateral hydronephrosis and incidental finding of gallstones and probable common bile duct stones. He is planned for ERCP given risks of developing ascending cholangitis, biliary pancreatitis and liver failure. He remains asymptomatic from CV-standpoint and denies chest pain or palpitations. He denies fever or chills. He denies paroxysmal nocturnal dyspnea or orthopnea. Denies headache or lightheadedness. - History Source History Provided By: Patient Limitations to Obtaining History: No Limitations - Past Medical History Cardio/Vascular: Yes: AFIB (on AC), CAD, HTN, Hyperlipdemia, Other (SSS with PPM ) Pulmonary: Yes: COPD Renal/: Yes: BPH, Cancer (prostate), Renal Calculi, Other (urinary incontinence) - Past Surgical History Past Surgical History: Yes: Appendectomy, Hernia Repair, Joint Replacement - Alcohol/Substance Use Hx Alcohol Use: No History of Substance Use: reports: None - Smoking History Smoking history: Former smoker Have you smoked in the past 12 months: No Aproximately how many cigarettes per day: 0 If you are a former smoker, when did you quit?: 23 YRS - Social History ADL: Independent History of Recent Travel: No Home Medications - Allergies Allergies/Adverse Reactions: Allergies Allergy/AdvReac Type Severity Reaction Status Date / Time azithromycin Allergy Intermediate HEADACHE Verified 07/19/17 15:47 - Home Medications Home Medications: Ambulatory Orders Albuterol Sulfate [Proair Respiclick] 90 mcg IH QID PRN 05/21/16 Allopurinol [Zyloprim -] 100 mg PO DAILY 05/21/16 Ascorbic Acid [Vitamin C] 500 mg PO DAILY 05/21/16 Cholecalciferol (Vitamin D3) [Vitamin D3] 5,000 unit PO DAILY 05/21/16 Docusate Sodium [Colace -] 0 mg PO HS PRN 05/21/16 Iron 325 mg PO DAILY 05/21/16 L.acidoph,Paracasei, B.lactis [Probiotic] 1 each PO DAILY 05/21/16 Losartan Potassium 50 mg PO BID 05/21/16 Methenamine Hippurate [Hiprex [Nf] -] 1 gm PO BID 05/21/16 Metoprolol Tartrate [Lopressor] 50 mg PO TID 05/21/16 Pyridoxine HCl [Vitamin B6] 50 mg PO DAILY 05/21/16 Tamsulosin HCl [Flomax] 0.4 mg PO DAILY 05/21/16 Thiamine HCl [Vitamin B1] 100 mg PO DAILY 05/21/16 Triamcinolone Acetonide [Nasacort] 10.8 ml NS DAILY 05/21/16 Ubidecarenone [Coq-10] 100 mg PO DAILY 05/21/16 Vitamin E 400 unit PO DAILY 05/21/16 Warfarin Na [Coumadin -] 4.5 mg PO DAILY@1800 tablet 06/12/16 Ciprofloxacin HCl [Cipro] 500 mg PO ASDIR 07/03/16 Mometasone Furoate [Asmanex 220Mcg -] 1 inh IH BID 07/03/16 Review of Systems - Review of Systems Genitourinary: reports: Dysuria Vital Signs: Vital Signs Temperature 98.1 F 07/23/17 09:56 Pulse Rate 67 07/23/17 09:56 Respiratory Rate 18 07/23/17 09:56 Blood Pressure 101/55 07/23/17 09:56 O2 Sat by Pulse Oximetry (%) 96 07/22/17 21:00 Constitutional: Yes: No Distress, Calm, Thin Neck: Yes: Supple Respiratory: Yes: Regular, Diminished Gastrointestinal: Yes: Normal Bowel Sounds, Soft Cardiovascular: Yes: Pulse Irregular JVD: No Carotid Bruit: No Heart Sounds: Yes: S1, S2 Murmur: Yes: Systolic Murmur, Grade 1 Edema: No - Other Data Labs, Other Data: CBC, BMP 07/23/17 06:00 07/23/17 06:00 INR, PTT INR 2.37 (0.82-1.09) H 07/23/17 06:00 Afib @ 72 occ v-paced Ejection Fraction %: LVEF > or = 40 % Imaging - Results Cat Scan: Report Reviewed (Trace bilateral effusions, GS and probable CBD stones , bilateral hydronephrosis with non-obstructive nephrolithiasis) Problem List - Problems (1) BRIAN (acute kidney injury) Code(s): N17.9 - ACUTE KIDNEY FAILURE, UNSPECIFIED (2) Choledocholithiasis Code(s): K80.50 - CALCULUS OF BILE DUCT W/O CHOLANGITIS OR CHOLECYST W/O OBST (3) Dilated cbd, acquired Code(s): K83.8 - OTHER SPECIFIED DISEASES OF BILIARY TRACT (4) Urethral stricture Code(s): N35.9 - URETHRAL STRICTURE, UNSPECIFIED Qualifiers: Urethral stricture type: other stricture Qualified Code(s): N35.8 - Other urethral stricture (5) A-fib Code(s): I48.91 - UNSPECIFIED ATRIAL FIBRILLATION Qualifiers: Atrial fibrillation type: permanent Qualified Code(s): I48.2 - Chronic atrial fibrillation (6) Cholelithiasis Code(s): K80.20 - CALCULUS OF GALLBLADDER W/O CHOLECYSTITIS W/O OBSTRUCTION Qualifiers: Cholelithiasis location: gallbladder and bile duct Cholecystitis presence: without cholecystitis Biliary obstruction: without biliary obstruction Qualified Code(s): K80.70 - Calculus of gallbladder and bile duct without cholecystitis without obstruction (7) Chronic kidney disease Code(s): N18.9 - CHRONIC KIDNEY DISEASE, UNSPECIFIED Qualifiers: Chronic kidney disease stage: stage 2 (mild) Qualified Code(s): N18.2 - Chronic kidney disease, stage 2 (mild) (8) Diastolic CHF, chronic Code(s): I50.32 - CHRONIC DIASTOLIC (CONGESTIVE) HEART FAILURE (9) History of pacemaker Code(s): Z95.0 - PRESENCE OF CARDIAC PACEMAKER (10) Hyperlipidemia Code(s): E78.5 - HYPERLIPIDEMIA, UNSPECIFIED Qualifiers: Hyperlipidemia type: pure hypercholesterolemia Qualified Code(s): E78.00 - Pure hypercholesterolemia, unspecified (11) Hypertension Code(s): I10 - ESSENTIAL (PRIMARY) HYPERTENSION Qualifiers: Hypertension type: essential hypertension (12) Kidney stones Code(s): N20.0 - CALCULUS OF KIDNEY (13) SSS (sick sinus syndrome) Code(s): I49.5 - SICK SINUS SYNDROME (14) Urinary retention Code(s): R33.9 - RETENTION OF URINE, UNSPECIFIED Assessment/Plan 05/25/2016 Echocardiography performed yesterday revealed overall preserved left ventricular systolic function, bi-atrial dilatation, mild mitral valve regurgitation, mild to moderate tricuspid valve regurgitation 1. Pre-procedure cardiovascular evaluation prior to ERCP for suspected choledocholithiasis 2. LV diastolic dysfunction 3. CAD non-obstructive CAD angina pectoris 4. Permanent atrial fibrillation on A/C with Coumadin and therapeutic INR 5. Sick Sinus Syndrome post PPM 6. HTN 7. Hypercholesterolemia 8. Degenerative joint disease 9. Acute on CKD improving 10. History of bilateral nephrolithiasis and urethral stricture 11. Chronic anemia 12. COPD PLAN: 1. Given absence of sxs suggestive of acute coronary syndrome, decompensated CHF or malignant arrhythmia, may proceed with ERCP without further testing 2. Continue Lopressor 50 tid 3. Hold Coumadin pre-ERCP, to resume once post-procedure hemostasis achieved 4. BD as needed, monitor renal recovery, resume losartan once renal function stabilizes 5. Complete antibiotics course as per ID 6. Thank you for consultative opportunity
--- NOTE | 2017-07-23 12:17 | PN ---
GI Progress Note Subjective: GI Note> Dr Colon's note and cardiac clearance is appreciated. Mason remains free of pain. LFTs remain WNL. No signs of cholangitis. - Objective Vital Signs: Vital Signs Temperature 98.1 F 07/23/17 09:56 Pulse Rate 67 07/23/17 09:56 Respiratory Rate 18 07/23/17 09:56 Blood Pressure 101/55 07/23/17 09:56 O2 Sat by Pulse Oximetry (%) 96 07/22/17 21:00 Laboratory Tests 07/23/17 07/23/17 07/23/17 06:00 06:00 06:00 INR 2.37 H Total Bilirubin 0.4 D AST 9 L ALT 13 Alkaline Phosphatase 91 C-Reactive Protein 2.5 H Total Amylase 56 Lipase 134 Constitutional: No Distress ...Auscultate: Yes: Normoactive Bowel Sounds ...Palpate: Yes: Soft, Other (nontender) Labs: CBC, BMP 07/23/17 06:00 07/23/17 06:00 INR, PTT INR 2.37 (0.82-1.09) H 07/23/17 06:00 Problem List - Problems (1) Choledocholithiasis Assessment/Plan: Fortunately no signs of cholangitis on currrent antibiotic, INR change does not project to correct in time for Friday ERCP so will order Vitamin K Code(s): K80.50 - CALCULUS OF BILE DUCT W/O CHOLANGITIS OR CHOLECYST W/O OBST (2) Supratherapeutic INR Code(s): R79.1 - ABNORMAL COAGULATION PROFILE
[2017-07-23] MEDS ORDERED: PHYTONADIONE 10 MG/1 ML AMP IVPB ONE (13:00)
--- NOTE | 2017-07-23 17:06 | PN ---
Progress Note (short form) - Note Progress Note: patient advised to increase frequency of self cath to daily with increased creatinine and hydro on imaging
--- NOTE | 2017-07-23 17:14 | PN ---
Progress Note, Physician History of Present Illness: Renal f/u on BRIAN post-renal on CKD seen and examined at bedside. Pt had 100cc and 15cc pre and post self-cath. No other acute complaints. - Current Medication List Current Medications: Active Medications Albuterol Sulfate (Ventolin Hfa Inhaler -) 90 puff IH Q6H PRN PRN Reason: SHORTNESS OF BREATH Allopurinol (Zyloprim -) 100 mg PO DAILY [facility] Last Admin: 07/23/17 10:22 Dose: 100 mg Ascorbic Acid (Vitamin C -) 500 mg PO DAILY [facility] Last Admin: 07/23/17 10:22 Dose: 500 mg Docusate Sodium (Colace -) 100 mg PO HS PRN PRN Reason: CONSTIPATION Last Admin: 07/22/17 15:24 Dose: 100 mg Ferrous Sulfate (Feosol -) 325 mg PO DAILY [facility] Last Admin: 07/23/17 10:22 Dose: 325 mg Lactobacillus Acidophilus (Bacid -) 1 tab PO DAILY [facility] Last Admin: 07/23/17 10:22 Dose: 1 tab Levofloxacin (Levaquin -) 250 mg PO Q2D@0600 [facility] Last Admin: 07/23/17 05:59 Dose: 250 mg Metoprolol Tartrate (Lopressor -) 50 mg PO TID [facility] Last Admin: 07/23/17 14:10 Dose: 50 mg Breo 200/25 Mcg Inhaler - Patient Own Med 1 each IH DAILY [facility] Last Admin: 07/23/17 10:24 Dose: 1 each Nasacort Nasal [place] (- Patient Own Med) 1 each NR DAILY [facility] Last Admin: 07/23/17 10:25 Dose: 1 each Multivitamin Tablet (- Patient Own Med) 1 each PO DAILY [facility] Last Admin: 07/23/17 10:25 Dose: 1 each Coenzyme Q10 Capsule (- Patient Own Med) 1 each PO DAILY [facility] Last Admin: 07/23/17 10:25 Dose: 1 each Methenamine Hippurate 1 Gm Tab - Patient Own Med 1 each PO BIDWM [facility] Last Admin: 07/23/17 08:29 Dose: 1 each Vitamin D 2000 Units Capsule - Patient Own Med 1 each PO DAILY [facility] Last Admin: 07/23/17 10:26 Dose: 1 each Pyridoxine HCl (Vitamin B6 -) 50 mg PO DAILY [facility] Last Admin: 05/30/18 10:22 Dose: 50 mg Tamsulosin HCl (Flomax -) 0.4 mg PO 30 [facility] Last Admin: 07/23/17 08:28 Dose: 0.4 mg Thiamine HCl (Vitamin B1 -) 100 mg PO DAILY [facility] Last Admin: 07/23/17 10:22 Dose: 100 mg Vitamin E (Vitamin E -) 400 unit PO DAILY [facility] Last Admin: 07/23/17 10:23 Dose: 400 unit - Objective Vital Signs: Vital Signs Temperature 97.3 F L 07/23/17 14:12 Pulse Rate 81 07/23/17 14:12 Respiratory Rate 20 07/23/17 14:12 Blood Pressure 124/70 07/23/17 14:12 O2 Sat by Pulse Oximetry (%) 97 07/23/17 09:00 Constitutional: Yes: No Distress, Calm Cardiovascular: Yes: Regular Rate and Rhythm, S1, S2 Respiratory: Yes: CTA Bilaterally Gastrointestinal: Yes: Normal Bowel Sounds, Soft, Abdomen, Obese. No: Tenderness Genitourinary: No: Bladder Distention, CVA Tenderness - Left, CVA Tenderness - Right, [place] Present Edema: No Labs: CBC, BMP 07/23/17 06:00 07/23/17 06:00 INR, PTT INR 2.37 (0.82-1.09) H 07/23/17 06:00 - ....Imaging Cat Scan: Report Reviewed Ultrasound: Report Reviewed Impression/Plan Impression/Plan: 87 M h.o CKD stage 4, Prostate Ca s/p radiation Tx, Urethral strictures presented with dysuria and weakness and found to have BRIAN. BRIAN (post-renal) Urethral strictures UTI b/l hydronephrosis -Cr improving with slow resolution of b/l hydro -increase self-cath frequency -cont. to trend renal function and electrolytes Visit type - Emergency Visit Emergency Visit: No - New Patient This patient is new to me today: No - Critical Care Critical Care patient: No - Discharge Referral Referred to [facility] Med P.C.: No
--- NOTE | 2017-07-23 18:27 | PN ---
Progress Note (short form) - Note Progress Note: Renal follow up for BRIAN on CKD Pt seen and examined at the bedside no complaints making urine via intermittent catherization Vital Signs Temperature 97.5 F L 07/22/17 13:39 Pulse Rate 92 H 07/22/17 13:39 Respiratory Rate 20 07/22/17 13:39 Blood Pressure 124/77 07/22/17 13:39 O2 Sat by Pulse Oximetry (%) 97 07/21/17 21:00 Intake & Output 07/19/17 07/20/17 07/21/17 07/22/17 23:59 23:59 23:59 23:59 Intake Total 490 940 240 600 Output Total 250 200 400 Balance 490 690 40 200 Weight 86.183 kg NAD awake and alert RRR CTA mild bladder distension No LE edema CBC, BMP 07/21/17 06:20 07/22/17 06:00 Current Medications Albuterol Sulfate (Ventolin Hfa Inhaler -) 90 puff IH Q6H PRN PRN Reason: SHORTNESS OF BREATH Allopurinol (Zyloprim -) 100 mg PO DAILY [facility] Last Admin: 07/22/17 09:42 Dose: 100 mg Ascorbic Acid (Vitamin C -) 500 mg PO DAILY [facility] Last Admin: 07/22/17 09:42 Dose: 500 mg Docusate Sodium (Colace -) 100 mg PO HS PRN PRN Reason: CONSTIPATION Last Admin: 07/22/17 15:24 Dose: 100 mg Ferrous Sulfate (Feosol -) 325 mg PO DAILY [facility] Last Admin: 07/22/17 09:38 Dose: 325 mg Lactobacillus Acidophilus (Bacid -) 1 tab PO DAILY [facility] Last Admin: 07/22/17 09:36 Dose: 1 tab Levofloxacin (Levaquin -) 250 mg PO Q2D@0600 [facility] Last Admin: 07/21/17 09:49 Dose: 250 mg Metoprolol Tartrate (Lopressor -) 50 mg PO TID [facility] Last Admin: 07/22/17 15:19 Dose: 50 mg Breo 200/25 Mcg Inhaler - Patient Own Med 1 each IH DAILY [facility] Last Admin: 07/22/17 09:39 Dose: 1 each Nasacort Nasal [place] (- Patient Own Med) 1 each NR DAILY [facility] Last Admin: 07/22/17 09:35 Dose: 1 each Multivitamin Tablet (- Patient Own Med) 1 each PO DAILY [facility] Last Admin: 07/22/17 09:40 Dose: 1 each Coenzyme Q10 Capsule (- Patient Own Med) 1 each PO DAILY [facility] Last Admin: 07/22/17 09:40 Dose: 1 each Methenamine Hippurate 1 Gm Tab - Patient Own Med 1 each PO BIDWM [facility] Last Admin: 07/22/17 09:00 Dose: 1 each Vitamin D 2000 Units Capsule - Patient Own Med 1 each PO DAILY [facility] Last Admin: 07/22/17 09:41 Dose: 1 each Pyridoxine HCl (Vitamin B6 -) 50 mg PO DAILY [facility] Last Admin: 07/22/17 09:41 Dose: 50 mg Tamsulosin HCl (Flomax -) 0.4 mg PO 0830 [facility] Last Admin: 07/22/17 08:30 Dose: 0.4 mg Thiamine HCl (Vitamin B1 -) 100 mg PO DAILY [facility] Last Admin: 07/22/17 09:41 Dose: 100 mg Vitamin E (Vitamin E -) 400 unit PO DAILY [facility] Last Admin: 07/22/17 09:41 Dose: 400 unit Warfarin Sodium 2.5 mg/ (Warfarin Sodium 2 mg) 4.5 mg PO DAILY@1800 [facility] Last Admin: 07/21/17 17:22 Dose: 4.5 mg 87 year old gentleman with PMhx of CKD stage 4, Prostate Ca s/p radiation Tx, Urethral strictures presented with dysuria and weakness and found to have BRIAN. #BRIAN seconadary to bladder outlet obstruction (baseline Cr 2.6) #Urethral strictures #UTI Renal function improving continue daily catherization Trend renal function continue Abx as per CAT Esquivel DO
[2017-07-23] MEDS: DOCUSATE SODIUM 100 MG CAPSULE (FP) PO PRN (21:30)
[2017-07-24] MEDS: METOPROLOL TARTRATE 50 MG TABLET (FP) PO SCH ×3 (06:07→22:29)
[2017-07-24 07:33] LABS: HEMATOCRIT 30.2 % (35.4-49); HEMOGLOBIN 10.4 GM/dL (11.7-16.9); MCH 29.4 pg (25.7-33.7); MCHC 34.3 g/dl (32.0-35.9); MEAN CELL VOLUME 85.6 fl (80-96); MEAN PLT VOLUME 8.9 fl (7.5-11.1); PLATELET COUNT 184 K/MM3 (134-434); RBC 3.52 M/mm3 (4.00-5.60); RDW 15.4 % (11.9-15.9); WHITE BLOOD COUNT 10.5 K/mm3 (4.0-10.0)
[2017-07-24 07:42] LABS: ALBUMIN 3.1 g/dl (3.4-5.0); ANION GAP 10 (8-16); CALCIUM 8.5 mg/dL (8.5-10.1); CHLORIDE 109 mmol/L (98-107); CO2 21 mmol/L (21-32); GLUCOSE,RANDOM 89 mg/dL (74-106); SODIUM 140 mmol/L (136-145)
[2017-07-24 07:43] LABS: INR 1.45 (0.82-1.09); PROTHROMBIN TIME (PATIENT) 16.4 SEC (9.7-13.0)
[2017-07-24 07:46] LABS: ALK PHOS 89 U/L (45-117); BILIRUBIN,DIRECT 0.2 mg/dL (0.0-0.2); BILIRUBIN,TOTAL 0.6 mg/dL (0.2-1.0); CREATININE 2.9 mg/dL (0.7-1.3); SGOT/AST 7 U/L (15-37); SGPT/ALT 14 U/L (12-78); TOT PROT 5.9 g/dl (6.4-8.2)
[2017-07-24 07:51] LABS: BLOOD UREA NITROGEN 32 mg/dL (7-18)
[2017-07-24] MEDS: METHENAMINE HIPPURATE 1 GM PO SCH ×2 (08:13→17:28)
[2017-07-24] MEDS: TAMSULOSIN HCL 0.4 MG CAP.ER.24H (FP) PO SCH (08:14)
--- NOTE | 2017-07-24 09:48 | PN ---
Progress Note, Physician History of Present Illness: He remains asymptomatic from CV-standpoint and denies chest pain, near or true syncope or palpitations. He denies fever or chills or abd pain. He denies paroxysmal nocturnal dyspnea or orthopnea. - Current Medication List Current Medications: Active Medications Albuterol Sulfate (Ventolin Hfa Inhaler -) 90 puff IH Q6H PRN PRN Reason: SHORTNESS OF BREATH Allopurinol (Zyloprim -) 100 mg PO DAILY [facility] Last Admin: 07/23/17 10:22 Dose: 100 mg Ascorbic Acid (Vitamin C -) 500 mg PO DAILY [facility] Last Admin: 07/23/17 10:22 Dose: 500 mg Docusate Sodium (Colace -) 100 mg PO HS PRN PRN Reason: CONSTIPATION Last Admin: 07/23/17 21:30 Dose: 100 mg Ferrous Sulfate (Feosol -) 325 mg PO DAILY [facility] Last Admin: 07/23/17 10:22 Dose: 325 mg Lactobacillus Acidophilus (Bacid -) 1 tab PO DAILY [facility] Last Admin: 07/23/17 10:22 Dose: 1 tab Levofloxacin (Levaquin -) 250 mg PO Q2D@0600 [facility] Last Admin: 07/23/17 05:59 Dose: 250 mg Metoprolol Tartrate (Lopressor -) 50 mg PO TID [facility] Last Admin: 07/24/17 06:07 Dose: 50 mg Breo 200/25 Mcg Inhaler - Patient Own Med 1 each IH DAILY [facility] Last Admin: 07/23/17 10:24 Dose: 1 each Nasacort Nasal [place] (- Patient Own Med) 1 each NR DAILY [facility] Last Admin: 07/23/17 10:25 Dose: 1 each Multivitamin Tablet (- Patient Own Med) 1 each PO DAILY [facility] Last Admin: 07/23/17 10:25 Dose: 1 each Coenzyme Q10 Capsule (- Patient Own Med) 1 each PO DAILY [facility] Last Admin: 07/23/17 10:25 Dose: 1 each Methenamine Hippurate 1 Gm Tab - Patient Own Med 1 each PO BIDWM [facility] Last Admin: 07/24/17 08:13 Dose: 1 each Vitamin D 2000 Units Capsule - Patient Own Med 1 each PO DAILY [facility] Last Admin: 07/23/17 10:26 Dose: 1 each Pyridoxine HCl (Vitamin B6 -) 50 mg PO DAILY [facility] Last Admin: 07/23/17 10:22 Dose: 50 mg Tamsulosin HCl (Flomax -) 0.4 mg PO 0830 [facility] Last Admin: 07/24/17 08:14 Dose: 0.4 mg Thiamine HCl (Vitamin B1 -) 100 mg PO DAILY [facility] Last Admin: 07/23/17 10:22 Dose: 100 mg Vitamin E (Vitamin E -) 400 unit PO DAILY [facility] Last Admin: 07/23/17 10:23 Dose: 400 unit - Objective Vital Signs: Vital Signs Temperature 98.6 F 07/24/17 09:14 Pulse Rate 76 07/24/17 09:14 Respiratory Rate 18 07/24/17 09:14 Blood Pressure 105/49 07/24/17 09:14 O2 Sat by Pulse Oximetry (%) 96 07/23/17 21:00 Constitutional: Yes: No Distress, Calm Neck: Yes: Supple Cardiovascular: Yes: Regular Rate and Rhythm Respiratory: Yes: Regular, CTA Bilaterally Gastrointestinal: Yes: Soft, Hypoactive Bowel Sounds Edema: No Labs: CBC, BMP 07/24/17 06:00 07/24/17 06:00 INR, PTT INR 1.45 (0.82-1.09) H D 07/24/17 06:00 Problem List - Problems (1) BRIAN (acute kidney injury) Code(s): N17.9 - ACUTE KIDNEY FAILURE, UNSPECIFIED (2) Choledocholithiasis Code(s): K80.50 - CALCULUS OF BILE DUCT W/O CHOLANGITIS OR CHOLECYST W/O OBST (3) Dilated cbd, acquired Code(s): K83.8 - OTHER SPECIFIED DISEASES OF BILIARY TRACT (4) Urethral stricture Code(s): N35.9 - URETHRAL STRICTURE, UNSPECIFIED Qualifiers: Urethral stricture type: other stricture Qualified Code(s): N35.8 - Other urethral stricture (5) A-fib Code(s): I48.91 - UNSPECIFIED ATRIAL FIBRILLATION Qualifiers: Atrial fibrillation type: permanent Qualified Code(s): I48.2 - Chronic atrial fibrillation (6) Cholelithiasis Code(s): K80.20 - CALCULUS OF GALLBLADDER W/O CHOLECYSTITIS W/O OBSTRUCTION Qualifiers: Cholelithiasis location: gallbladder and bile duct Cholecystitis presence: without cholecystitis Biliary obstruction: without biliary obstruction Qualified Code(s): K80.70 - Calculus of gallbladder and bile duct without cholecystitis without obstruction (7) Chronic kidney disease Code(s): N18.9 - CHRONIC KIDNEY DISEASE, UNSPECIFIED Qualifiers: Chronic kidney disease stage: stage 2 (mild) Qualified Code(s): N18.2 - Chronic kidney disease, stage 2 (mild) (8) Diastolic CHF, chronic Code(s): I50.32 - CHRONIC DIASTOLIC (CONGESTIVE) HEART FAILURE (9) History of pacemaker Code(s): Z95.0 - PRESENCE OF CARDIAC PACEMAKER (10) Hyperlipidemia Code(s): E78.5 - HYPERLIPIDEMIA, UNSPECIFIED Qualifiers: Hyperlipidemia type: pure hypercholesterolemia Qualified Code(s): E78.00 - Pure hypercholesterolemia, unspecified (11) Hypertension Code(s): I10 - ESSENTIAL (PRIMARY) HYPERTENSION Qualifiers: Hypertension type: essential hypertension (12) Kidney stones Code(s): N20.0 - CALCULUS OF KIDNEY (13) SSS (sick sinus syndrome) Code(s): I49.5 - SICK SINUS SYNDROME (14) Urinary retention Code(s): R33.9 - RETENTION OF URINE, UNSPECIFIED Assessment/Plan 05/25/2016 Echocardiography performed yesterday revealed overall preserved left ventricular systolic function, bi-atrial dilatation, mild mitral valve regurgitation, mild to moderate tricuspid valve regurgitation 1. Pre-procedure cardiovascular evaluation prior to ERCP for suspected choledocholithiasis 2. LV diastolic dysfunction 3. CAD non-obstructive CAD angina pectoris 4. Permanent atrial fibrillation on A/C with Coumadin and subtherapeutic INR 5. Sick Sinus Syndrome post PPM 6. HTN 7. Hypercholesterolemia 8. Degenerative joint disease 9. Acute on CKD secondary to bladder outlet obstruction improving 10. History of bilateral nephrolithiasis and urethral stricture 11. Chronic anemia 12. COPD PLAN: 1. Given absence of sxs suggestive of acute coronary syndrome, decompensated CHF or malignant arrhythmia, may proceed with ERCP without further testing 2. Continue Lopressor 50 tid 3. Hold Coumadin pre-ERCP, to resume once post-procedure hemostasis achieved 4. BD as needed, monitor renal recovery, resume losartan once renal function stabilizes, self-catheterization and flomax 5. Complete antibiotics course as per ID
[2017-07-24] MEDS: LACTOBACILLUS ACIDOPHILUS 1 TABLET PO SCH (10:02)
[2017-07-24] MEDS: THIAMINE HCL 100 MG TABLET (FP) PO SCH (10:02)
[2017-07-24] MEDS: ALLOPURINOL 100 MG TABLET (FP) PO SCH (10:02)
[2017-07-24] MEDS: FERROUS SO4 325 MG TABLET (FP) PO SCH (10:02)
[2017-07-24] MEDS: ASCORBIC ACID 500 MG TABLET (FP) PO SCH (10:02)
[2017-07-24] MEDS: MULTIVITAMIN PO SCH (10:03)
[2017-07-24] MEDS: BREO IH SCH (10:03)
[2017-07-24] MEDS: COENZYME Q10 PO SCH (10:03)
[2017-07-24] MEDS: NASACORT NR SCH (10:03)
[2017-07-24] MEDS: VITAMIN E 400 INTERNATIONAL-UNITS CAPSULE (FP) PO SCH (10:04)
[2017-07-24] MEDS: VITAMIN D 2000 UNIT PO SCH (10:04)
[2017-07-24] MEDS: PYRIDOXINE HCL (B-6) 50 MG TABLET (FP) PO SCH (10:04)
--- NOTE | 2017-07-24 15:32 | PN ---
Progress Note (short form) - Note Progress Note: Renal follow up for BRIAN on CKD Pt seen and examined at the bedside awake and alert reports more burning with urination now says that he is not voiding apart from when he places the catheter no sob, chest pain Vital Signs Temperature 97.4 F L 07/24/17 14:18 Pulse Rate 87 07/24/17 14:18 Respiratory Rate 20 07/24/17 14:18 Blood Pressure 133/86 07/24/17 14:18 O2 Sat by Pulse Oximetry (%) 98 07/24/17 09:00 Intake & Output 07/21/17 07/22/17 07/23/17 07/24/17 23:59 23:59 23:59 23:59 Intake Total 240 600 720 560 Output Total 200 475 700 Balance 40 125 20 560 Weight 86.183 kg NAD awake and alert RRR CTA mild bladder distension No LE edema CBC, BMP 07/24/17 06:00 07/24/17 06:00 Current Medications Albuterol Sulfate (Ventolin Hfa Inhaler -) 90 puff IH Q6H PRN PRN Reason: SHORTNESS OF BREATH Allopurinol (Zyloprim -) 100 mg PO DAILY [facility] Last Admin: 07/24/17 10:02 Dose: 100 mg Ascorbic Acid (Vitamin C -) 500 mg PO DAILY [facility] Last Admin: 07/24/17 10:02 Dose: 500 mg Docusate Sodium (Colace -) 100 mg PO HS PRN PRN Reason: CONSTIPATION Last Admin: 07/23/17 21:30 Dose: 100 mg Ferrous Sulfate (Feosol -) 325 mg PO DAILY [facility] Last Admin: 07/24/17 10:02 Dose: 325 mg Lactobacillus Acidophilus (Bacid -) 1 tab PO DAILY [facility] Last Admin: 07/24/17 10:02 Dose: 1 tab Levofloxacin (Levaquin -) 250 mg PO Q2D@0600 [facility] Last Admin: 07/23/17 05:59 Dose: 250 mg Metoprolol Tartrate (Lopressor -) 50 mg PO TID [facility] Last Admin: 07/24/17 15:30 Dose: 50 mg Breo 200/25 Mcg Inhaler - Patient Own Med 1 each IH DAILY [facility] Last Admin: 07/24/17 10:03 Dose: 1 each Nasacort Nasal [place] (- Patient Own Med) 1 each NR DAILY [facility] Last Admin: 07/24/17 10:03 Dose: 1 each Multivitamin Tablet (- Patient Own Med) 1 each PO DAILY [facility] Last Admin: 07/24/17 10:03 Dose: 1 each Coenzyme Q10 Capsule (- Patient Own Med) 1 each PO DAILY [facility] Last Admin: 07/24/17 10:03 Dose: 1 each Methenamine Hippurate 1 Gm Tab - Patient Own Med 1 each PO BIDWM [facility] Last Admin: 07/24/17 08:13 Dose: 1 each Vitamin D 2000 Units Capsule - Patient Own Med 1 each PO DAILY [facility] Last Admin: 07/24/17 10:04 Dose: 1 each Pyridoxine HCl (Vitamin B6 -) 50 mg PO DAILY [facility] Last Admin: 07/24/17 10:04 Dose: 50 mg Tamsulosin HCl (Flomax -) 0.4 mg PO 829 [facility] Last Admin: 07/24/17 08:14 Dose: 0.4 mg Thiamine HCl (Vitamin B1 -) 100 mg PO DAILY [facility] Last Admin: 07/24/17 10:02 Dose: 100 mg Vitamin E (Vitamin E -) 400 unit PO DAILY [facility] Last Admin: 07/24/17 10:04 Dose: 400 unit 87 year old gentleman with PMhx of CKD stage 4, Prostate Ca s/p radiation Tx, Urethral strictures presented with dysuria and weakness and found to have BRIAN. #BRIAN seconadary to bladder outlet obstruction (baseline Cr 2.6) #Urethral strictures #UTI Renal function stable pt will likely need intermittent catherization multiple times daily urology follow up Jacques Esquivel DO
[2017-07-24 18:40] LABS: URINE APPEARANCE CLOUDY; URINE BILIRUBIN NEGATIVE (<2.0 mg/dL); URINE BLOOD 3+ (NEGATIVE); URINE COLOR YELLOW; URINE GLUCOSE (UA) NEGATIVE (NEGATIVE); URINE KETONE NEGATIVE (NEGATIVE); URINE NITRITE NEGATIVE (NEGATIVE); URINE UROBILINOGEN NEGATIVE mg/dL (0.2-1.0)
[2017-07-24 18:43] LABS: URINE LEUK ESTERASE 3+ (NEGATIVE); URINE PROTEIN 2+ (NEGATIVE)
[2017-07-24 18:46] LABS: EPI CELLS RARE /HPF (FEW)
[2017-07-24] MEDS ORDERED: DOCUSATE SODIUM 100 MG CAPSULE (FP) PO PRN (18:51)
--- NOTE | 2017-07-24 18:52 | PN ---
Progress Note, Physician History of Present Illness: Pt w/o fever, chills, SOB, CP, abd pain, dysuria. Pt c/o constipation - Current Medication List Current Medications: Active Medications Albuterol Sulfate (Ventolin Hfa Inhaler -) 90 puff IH Q6H PRN PRN Reason: SHORTNESS OF BREATH Allopurinol (Zyloprim -) 100 mg PO DAILY [facility] Last Admin: 07/24/17 10:02 Dose: 100 mg Ascorbic Acid (Vitamin C -) 500 mg PO DAILY [facility] Last Admin: 07/24/17 10:02 Dose: 500 mg Docusate Sodium (Colace -) 300 mg PO ONCE ONE Stop: 07/24/17 18:51 Docusate Sodium (Colace -) 100 mg PO DAILY PRN PRN Reason: CONSTIPATION Ferrous Sulfate (Feosol -) 325 mg PO DAILY [facility] Last Admin: 07/24/17 10:02 Dose: 325 mg Lactobacillus Acidophilus (Bacid -) 1 tab PO DAILY [facility] Last Admin: 07/24/17 10:02 Dose: 1 tab Levofloxacin (Levaquin -) 250 mg PO Q2D@0600 [facility] Last Admin: 07/23/17 05:59 Dose: 250 mg Metoprolol Tartrate (Lopressor -) 50 mg PO TID [facility] Last Admin: 07/24/17 15:30 Dose: 50 mg Breo 200/25 Mcg Inhaler - Patient Own Med 1 each IH DAILY [facility] Last Admin: 07/24/17 10:03 Dose: 1 each Nasacort Nasal [place] (- Patient Own Med) 1 each NR DAILY [facility] Last Admin: 07/24/17 10:03 Dose: 1 each Multivitamin Tablet (- Patient Own Med) 1 each PO DAILY [facility] Last Admin: 07/24/17 10:03 Dose: 1 each Coenzyme Q10 Capsule (- Patient Own Med) 1 each PO DAILY [facility] Last Admin: 07/24/17 10:03 Dose: 1 each Methenamine Hippurate 1 Gm Tab - Patient Own Med 1 each PO BIDWM [facility] Last Admin: 07/24/17 17:28 Dose: 1 each Vitamin D 2000 Units Capsule - Patient Own Med 1 each PO DAILY [facility] Last Admin: 07/24/17 10:04 Dose: 1 each Pyridoxine HCl (Vitamin B6 -) 50 mg PO DAILY [facility] Last Admin: 07/24/17 10:04 Dose: 50 mg Tamsulosin HCl (Flomax -) 0.4 mg PO 0830 [facility] Last Admin: 07/24/17 08:14 Dose: 0.4 mg Thiamine HCl (Vitamin B1 -) 100 mg PO DAILY [facility] Last Admin: 07/24/17 10:02 Dose: 100 mg Vitamin E (Vitamin E -) 400 unit PO DAILY [facility] Last Admin: 07/24/17 10:04 Dose: 400 unit - Objective Vital Signs: Vital Signs Temperature 98.2 F 07/24/17 18:49 Pulse Rate 87 07/24/17 18:49 Respiratory Rate 18 07/24/17 18:49 Blood Pressure 132/66 07/24/17 18:49 O2 Sat by Pulse Oximetry (%) 98 07/24/17 09:00 Constitutional: Yes: No Distress, Calm Cardiovascular: Yes: Regular Rate and Rhythm, S1, S2 Respiratory: Yes: Regular, CTA Bilaterally. No: Rales Gastrointestinal: Yes: Normal Bowel Sounds, Soft. No: Tenderness Edema: No Neurological: Yes: Alert, Oriented Labs: CBC, BMP 07/24/17 06:00 07/24/17 06:00 INR, PTT INR 1.45 (0.82-1.09) H D 07/24/17 06:00 Problem List - Problems (1) BRIAN (acute kidney injury) Code(s): N17.9 - ACUTE KIDNEY FAILURE, UNSPECIFIED (2) Urinary tract infection Code(s): N39.0 - URINARY TRACT INFECTION, SITE NOT SPECIFIED Qualifiers: Urinary tract infection type: site unspecified Hematuria presence: with hematuria Qualified Code(s): N39.0 - Urinary tract infection, site not specified; R31.9 - Hematuria, unspecified (3) Urethral stricture Code(s): N35.9 - URETHRAL STRICTURE, UNSPECIFIED Qualifiers: Urethral stricture type: other stricture Qualified Code(s): N35.8 - Other urethral stricture (4) A-fib Code(s): I48.91 - UNSPECIFIED ATRIAL FIBRILLATION Qualifiers: Atrial fibrillation type: permanent Qualified Code(s): I48.2 - Chronic atrial fibrillation (5) Prostate CA Code(s): C61 - MALIGNANT NEOPLASM OF PROSTATE (6) CHF (congestive heart failure) Code(s): I50.9 - HEART FAILURE, UNSPECIFIED (7) COPD exacerbation Code(s): J44.1 - CHRONIC OBSTRUCTIVE PULMONARY DISEASE W (ACUTE) EXACERBATION (8) Choledocholithiasis Code(s): K80.50 - CALCULUS OF BILE DUCT W/O CHOLANGITIS OR CHOLECYST W/O OBST (9) Dilated cbd, acquired Code(s): K83.8 - OTHER SPECIFIED DISEASES OF BILIARY TRACT Assessment/Plan ID, Renal, , GI, Cardio consults and f/u are appreciated. OOBTC Off AC, for ERCP tomorrow. Pt with urinary retention, requires self cathethrization Creatinine is improving. Joi MAKI labs Case was d/w pt's nurse.
[2017-07-24] MEDS ORDERED: DOCUSATE SODIUM 100 MG CAPSULE (FP) PO ONE (19:15)
--- NOTE | 2017-07-24 22:22 | PN ---
GI Progress Note Subjective: GI Note: Urology difficulties noted. INR has come down to 1.45. Will proceed with ERCP tomorrow - Objective Vital Signs: Vital Signs Temperature 98.2 F 07/24/17 18:49 Pulse Rate 87 07/24/17 18:49 Respiratory Rate 18 07/24/17 21:00 Blood Pressure 132/66 07/24/17 18:49 O2 Sat by Pulse Oximetry (%) 96 07/24/17 21:00 Laboratory Tests 07/23/17 07/24/17 07/24/17 06:00 06:00 06:00 WBC Hgb INR 1.45 H D Total Bilirubin 0.6 D AST 7 L D ALT 14 Alkaline Phosphatase 89 C-Reactive Protein 2.5 H Total Amylase 56 Lipase 134 07/24/17 06:00 WBC 10.5 H D Hgb 10.4 L INR Total Bilirubin AST ALT Alkaline Phosphatase C-Reactive Protein Total Amylase Lipase Constitutional: No Distress ...Auscultate: Yes: Normoactive Bowel Sounds ...Palpate: Yes: Soft, Other (nontender) Labs: CBC, BMP 07/24/17 06:00 07/24/17 06:00 INR, PTT INR 1.45 (0.82-1.09) H D 07/24/17 06:00 Problem List - Problems (1) Choledocholithiasis Assessment/Plan: Fortunately no signs of cholangitis on currrent antibiotic. For ERCP tomorrow Code(s): K80.50 - CALCULUS OF BILE DUCT W/O CHOLANGITIS OR CHOLECYST W/O OBST (2) Supratherapeutic INR Code(s): R79.1 - ABNORMAL COAGULATION PROFILE
[2017-07-25] MEDS: METOPROLOL TARTRATE 50 MG TABLET (FP) PO SCH ×4 (05:53→21:36)
[2017-07-25 07:35] LABS: HEMATOCRIT 30.1 % (35.4-49); HEMOGLOBIN 10.5 GM/dL (11.7-16.9); MCH 29.8 pg (25.7-33.7); MEAN CELL VOLUME 85.1 fl (80-96); MEAN PLT VOLUME 9.2 fl (7.5-11.1); PLATELET COUNT 172 K/MM3 (134-434); RBC 3.53 M/mm3 (4.00-5.60); RDW 15.4 % (11.9-15.9); WHITE BLOOD COUNT 9.6 K/mm3 (4.0-10.0)
[2017-07-25] MEDS: METHENAMINE HIPPURATE 1 GM PO SCH ×2 (07:40→18:28)
[2017-07-25] MEDS: TAMSULOSIN HCL 0.4 MG CAP.ER.24H (FP) PO SCH (07:40)
[2017-07-25 08:10] LABS: INR 1.28 (0.82-1.09); PROTHROMBIN TIME (PATIENT) 14.5 SEC (9.7-13.0)
[2017-07-25 08:30] LABS: ALBUMIN 3.2 g/dl (3.4-5.0); ANION GAP 10 (8-16); BILIRUBIN,DIRECT 0.2 mg/dL (0.0-0.2); BLOOD UREA NITROGEN 30 mg/dL (7-18); CALCIUM 8.6 mg/dL (8.5-10.1); CHLORIDE 109 mmol/L (98-107); CO2 21 mmol/L (21-32); CREATININE 2.9 mg/dL (0.7-1.3); GLUCOSE,RANDOM 87 mg/dL (74-106); POTASSIUM 4.2 mmol/L (3.5-5.1); SGOT/AST 8 U/L (15-37); SGPT/ALT 18 U/L (12-78); SODIUM 140 mmol/L (136-145)
[2017-07-25 08:32] LABS: ALK PHOS 89 U/L (45-117); BILIRUBIN,TOTAL 0.6 mg/dL (0.2-1.0); TOT PROT 6.1 g/dl (6.4-8.2)
[2017-07-25] MEDS: LACTOBACILLUS ACIDOPHILUS 1 TABLET PO SCH (09:33)
[2017-07-25] MEDS: FERROUS SO4 325 MG TABLET (FP) PO SCH (09:33)
[2017-07-25] MEDS: THIAMINE HCL 100 MG TABLET (FP) PO SCH (09:34)
[2017-07-25] MEDS: BREO IH SCH (09:34)
[2017-07-25] MEDS: NASACORT NR SCH (09:34)
[2017-07-25] MEDS: VITAMIN E 400 INTERNATIONAL-UNITS CAPSULE (FP) PO SCH (09:34)
[2017-07-25] MEDS: PYRIDOXINE HCL (B-6) 50 MG TABLET (FP) PO SCH (09:34)
[2017-07-25] MEDS: MULTIVITAMIN PO SCH (09:34)
[2017-07-25] MEDS: ALLOPURINOL 100 MG TABLET (FP) PO SCH (09:34)
[2017-07-25] MEDS: VITAMIN D 2000 UNIT PO SCH (09:34)
[2017-07-25] MEDS: COENZYME Q10 PO SCH (09:34)
[2017-07-25] MEDS: ASCORBIC ACID 500 MG TABLET (FP) PO SCH (09:34)
--- NOTE | 2017-07-25 11:33 | PN ---
Progress Note, Physician History of Present Illness: He remains asymptomatic from CV-standpoint and denies chest pain, near or true syncope or palpitations. He denies fever or chills or abd pain. He denies paroxysmal nocturnal dyspnea or orthopnea. - Current Medication List Current Medications: Active Medications Albuterol Sulfate (Ventolin Hfa Inhaler -) 90 puff IH Q6H PRN PRN Reason: SHORTNESS OF BREATH Allopurinol (Zyloprim -) 100 mg PO DAILY [facility] Last Admin: 07/25/17 09:34 Dose: Not Given Ascorbic Acid (Vitamin C -) 500 mg PO DAILY [facility] Last Admin: 07/25/17 09:34 Dose: Not Given Docusate Sodium (Colace -) 100 mg PO DAILY PRN PRN Reason: CONSTIPATION Ferrous Sulfate (Feosol -) 325 mg PO DAILY [facility] Last Admin: 07/25/17 09:33 Dose: Not Given Lactobacillus Acidophilus (Bacid -) 1 tab PO DAILY [facility] Last Admin: 07/25/17 09:33 Dose: Not Given Levofloxacin (Levaquin -) 250 mg PO Q2D@0600 [facility] Last Admin: 07/25/17 05:53 Dose: Not Given Metoprolol Tartrate (Lopressor -) 50 mg PO TID [facility] Last Admin: 07/25/17 05:53 Dose: Not Given Breo 200/25 Mcg Inhaler - Patient Own Med 1 each IH DAILY [facility] Last Admin: 07/25/17 09:34 Dose: 1 each Nasacort Nasal [place] (- Patient Own Med) 1 each NR DAILY [facility] Last Admin: 07/25/17 09:34 Dose: 1 each Multivitamin Tablet (- Patient Own Med) 1 each PO DAILY [facility] Last Admin: 07/25/17 09:34 Dose: Not Given Coenzyme Q10 Capsule (- Patient Own Med) 1 each PO DAILY [facility] Last Admin: 07/25/17 09:34 Dose: Not Given Methenamine Hippurate 1 Gm Tab - Patient Own Med 1 each PO BIDWM [facility] Last Admin: 07/25/17 07:40 Dose: Not Given Vitamin D 2000 Units Capsule - Patient Own Med 1 each PO DAILY [facility] Last Admin: 07/25/17 09:34 Dose: Not Given Pyridoxine HCl (Vitamin B6 -) 50 mg PO DAILY [facility] Last Admin: 07/25/17 09:34 Dose: Not Given Tamsulosin HCl (Flomax -) 0.4 mg PO 0830 [facility] Last Admin: 07/25/17 07:40 Dose: Not Given Thiamine HCl (Vitamin B1 -) 100 mg PO DAILY [facility] Last Admin: 07/25/17 09:34 Dose: Not Given Vitamin E (Vitamin E -) 400 unit PO DAILY [facility] Last Admin: 07/25/17 09:34 Dose: Not Given - Objective Vital Signs: Vital Signs Temperature 97.7 F 07/25/17 09:32 Pulse Rate 78 07/25/17 09:32 Respiratory Rate 18 07/25/17 09:32 Blood Pressure 114/63 07/25/17 09:32 O2 Sat by Pulse Oximetry (%) 96 07/25/17 09:00 Constitutional: Yes: No Distress, Calm, Thin Neck: Yes: Supple Cardiovascular: Yes: Regular Rate and Rhythm Respiratory: Yes: Regular, Diminished Gastrointestinal: Yes: Normal Bowel Sounds, Soft Edema: No Labs: CBC, BMP 07/25/17 06:45 07/25/17 06:30 INR, PTT INR 1.28 (0.82-1.09) H 07/25/17 06:45 Problem List - Problems (1) BRIAN (acute kidney injury) Code(s): N17.9 - ACUTE KIDNEY FAILURE, UNSPECIFIED (2) Choledocholithiasis Code(s): K80.50 - CALCULUS OF BILE DUCT W/O CHOLANGITIS OR CHOLECYST W/O OBST (3) Dilated cbd, acquired Code(s): K83.8 - OTHER SPECIFIED DISEASES OF BILIARY TRACT (4) Urethral stricture Code(s): N35.9 - URETHRAL STRICTURE, UNSPECIFIED Qualifiers: Urethral stricture type: other stricture Qualified Code(s): N35.8 - Other urethral stricture (5) A-fib Code(s): I48.91 - UNSPECIFIED ATRIAL FIBRILLATION Qualifiers: Atrial fibrillation type: permanent Qualified Code(s): I48.2 - Chronic atrial fibrillation (6) Cholelithiasis Code(s): K80.20 - CALCULUS OF GALLBLADDER W/O CHOLECYSTITIS W/O OBSTRUCTION Qualifiers: Cholelithiasis location: gallbladder and bile duct Cholecystitis presence: without cholecystitis Biliary obstruction: without biliary obstruction Qualified Code(s): K80.70 - Calculus of gallbladder and bile duct without cholecystitis without obstruction (7) Chronic kidney disease Code(s): N18.9 - CHRONIC KIDNEY DISEASE, UNSPECIFIED Qualifiers: Chronic kidney disease stage: stage 2 (mild) Qualified Code(s): N18.2 - Chronic kidney disease, stage 2 (mild) (8) Diastolic CHF, chronic Code(s): I50.32 - CHRONIC DIASTOLIC (CONGESTIVE) HEART FAILURE (9) History of pacemaker Code(s): Z95.0 - PRESENCE OF CARDIAC PACEMAKER (10) Hyperlipidemia Code(s): E78.5 - HYPERLIPIDEMIA, UNSPECIFIED Qualifiers: Hyperlipidemia type: pure hypercholesterolemia Qualified Code(s): E78.00 - Pure hypercholesterolemia, unspecified (11) Hypertension Code(s): I10 - ESSENTIAL (PRIMARY) HYPERTENSION Qualifiers: Hypertension type: essential hypertension (12) Kidney stones Code(s): N20.0 - CALCULUS OF KIDNEY (13) SSS (sick sinus syndrome) Code(s): I49.5 - SICK SINUS SYNDROME (14) Urinary retention Code(s): R33.9 - RETENTION OF URINE, UNSPECIFIED Assessment/Plan 05/25/2016 Echocardiography performed yesterday revealed overall preserved left ventricular systolic function, bi-atrial dilatation, mild mitral valve regurgitation, mild to moderate tricuspid valve regurgitation 1. Pre-procedure cardiovascular evaluation prior to ERCP for suspected choledocholithiasis 2. LV diastolic dysfunction 3. CAD non-obstructive CAD angina pectoris 4. Permanent atrial fibrillation on A/C with Coumadin and subtherapeutic INR 5. Sick Sinus Syndrome post PPM 6. HTN 7. Hypercholesterolemia 8. Degenerative joint disease 9. Acute on CKD secondary to bladder outlet obstruction improving 10. History of bilateral nephrolithiasis and urethral stricture 11. Chronic anemia 12. COPD PLAN: 1. Given absence of sxs suggestive of acute coronary syndrome, decompensated CHF or malignant arrhythmia, may proceed with ERCP without further testing 2. Continue Lopressor 50 tid 3. Hold Coumadin pre-ERCP, to resume once post-procedure hemostasis achieved 4. BD as needed, monitor renal recovery, resume losartan once renal function stabilizes, self-catheterization and flomax 5. Complete antibiotics course as per ID
--- NOTE | 2017-07-25 15:46 | PN ---
Progress Note (short form) - Note Progress Note: GI Procedure Note: Please see scanned ERCP report. Patient had three large stones in the common bile duct. These were all extracted after a sphincterotomy was performed using a balloon extraction catheter. Please continue antibiotics and monitor for ERCP- induced pancreatitis. Dr. Arthur will be covering this weekend. Problem List - Problems (1) Choledocholithiasis Code(s): K80.50 - CALCULUS OF BILE DUCT W/O CHOLANGITIS OR CHOLECYST W/O OBST (2) Supratherapeutic INR Code(s): R79.1 - ABNORMAL COAGULATION PROFILE
[2017-07-25] MEDS ORDERED: LACTATED RINGERS SOLUTION 1,000 ML/1,000 ML INFUS.BAG IV SCH ×2 (16:00→22:00)
[2017-07-25] MEDS ORDERED: ACETAMINOPHEN 325 MG TABLET (FP) PO PRN (18:27)
[2017-07-25] MEDS ORDERED: PT OWN MED DRAWER 7, Y5N ONE (18:28)
--- NOTE | 2017-07-25 18:28 | PN ---
Progress Note, Physician History of Present Illness: Pt w/o fever, chills, SOB, CP, abd pain. Pt c/o bladder spasm, before lunch time. Per pt's nurse, Dr. Gibbs ordered Flexeril. - Current Medication List Current Medications: Active Medications Acetaminophen (Tylenol -) 650 mg PO Q6H PRN PRN Reason: PAIN LEVEL 1-5 Albuterol Sulfate (Ventolin Hfa Inhaler -) 90 puff IH Q6H PRN PRN Reason: SHORTNESS OF BREATH Allopurinol (Zyloprim -) 100 mg PO DAILY [facility] Last Admin: 07/25/17 09:34 Dose: Not Given Ascorbic Acid (Vitamin C -) 500 mg PO DAILY [facility] Last Admin: 07/25/17 09:34 Dose: Not Given Cyclobenzaprine HCl (Flexeril -) 10 mg PO TID [facility] Docusate Sodium (Colace -) 100 mg PO DAILY PRN PRN Reason: CONSTIPATION Ferrous Sulfate (Feosol -) 325 mg PO DAILY [facility] Last Admin: 07/25/17 09:33 Dose: Not Given Lactated Ringer's (Lactated Ringers Solution) 1,000 ml in 1,000 mls @ 150 mls/ hr IV ASDIR [facility] Stop: 07/25/17 22:00 Last Admin: 07/25/17 17:26 Dose: 150 mls/hr Lactated Ringer's (Lactated Ringers Solution) 1,000 ml in 1,000 mls @ 125 mls/ hr IV ASDIR [facility] Stop: 07/26/17 04:00 Lactated Ringer's (Lactated Ringers Solution) 1,000 ml in 1,000 mls @ 100 mls/ hr IV ASDIR [facility] Stop: 07/26/17 10:00 Lactated Ringer's (Lactated Ringers Solution) 1,000 ml in 1,000 mls @ 75 mls/ hr IV ASDIR [facility] Stop: 07/26/17 16:00 Lactated Ringer's (Lactated Ringers Solution) 1,000 ml in 1,000 mls @ 50 mls/ hr IV ASDIR [facility] Lactobacillus Acidophilus (Bacid -) 1 tab PO DAILY [facility] Last Admin: 07/25/17 09:33 Dose: Not Given Levofloxacin (Levaquin -) 250 mg PO Q2D@0600 [facility] Last Admin: 07/25/17 05:53 Dose: Not Given Metoprolol Tartrate (Lopressor -) 50 mg PO TID [facility] Last Admin: 07/25/17 17:27 Dose: 50 mg Breo 200/25 Mcg Inhaler - Patient Own Med 1 each IH DAILY [facility] Last Admin: 07/25/17 09:34 Dose: 1 each Nasacort Nasal [place] (- Patient Own Med) 1 each NR DAILY [facility] Last Admin: 07/25/17 09:34 Dose: 1 each Multivitamin Tablet (- Patient Own Med) 1 each PO DAILY [facility] Last Admin: 07/25/17 09:34 Dose: Not Given Coenzyme Q10 Capsule (- Patient Own Med) 1 each PO DAILY [facility] Last Admin: 07/25/17 09:34 Dose: Not Given Methenamine Hippurate 1 Gm Tab - Patient Own Med 1 each PO BIDWM [facility] Last Admin: 07/25/17 07:40 Dose: Not Given Vitamin D 2000 Units Capsule - Patient Own Med 1 each PO DAILY [facility] Last Admin: 07/25/17 09:34 Dose: Not Given Pyridoxine HCl (Vitamin B6 -) 50 mg PO DAILY [facility] Last Admin: 07/25/17 09:34 Dose: Not Given Tamsulosin HCl (Flomax -) 0.4 mg PO 0830 [facility] Last Admin: 07/25/17 07:40 Dose: Not Given Thiamine HCl (Vitamin B1 -) 100 mg PO DAILY [facility] Last Admin: 07/25/17 09:34 Dose: Not Given Vitamin E (Vitamin E -) 400 unit PO DAILY [facility] Last Admin: 07/25/17 09:34 Dose: Not Given - Objective Vital Signs: Vital Signs Temperature 98.2 F 07/25/17 16:40 Pulse Rate 83 07/25/17 16:40 Respiratory Rate 20 07/25/17 16:40 Blood Pressure 133/64 07/25/17 16:40 O2 Sat by Pulse Oximetry (%) 98 07/25/17 16:40 Constitutional: Yes: No Distress, Calm Cardiovascular: Yes: Regular Rate and Rhythm, S1, S2 Respiratory: Yes: Regular, CTA Bilaterally. No: Rales Gastrointestinal: Yes: Normal Bowel Sounds, Soft. No: Tenderness Edema: No Neurological: Yes: Alert, Oriented Labs: CBC, BMP 07/25/17 06:45 07/25/17 06:30 INR, PTT INR 1.28 (0.82-1.09) H 07/25/17 06:45 Problem List - Problems (1) BRIAN (acute kidney injury) Code(s): N17.9 - ACUTE KIDNEY FAILURE, UNSPECIFIED (2) Urinary tract infection Code(s): N39.0 - URINARY TRACT INFECTION, SITE NOT SPECIFIED Qualifiers: Urinary tract infection type: site unspecified Hematuria presence: with hematuria Qualified Code(s): N39.0 - Urinary tract infection, site not specified; R31.9 - Hematuria, unspecified (3) Urethral stricture Code(s): N35.9 - URETHRAL STRICTURE, UNSPECIFIED Qualifiers: Urethral stricture type: other stricture Qualified Code(s): N35.8 - Other urethral stricture (4) A-fib Code(s): I48.91 - UNSPECIFIED ATRIAL FIBRILLATION Qualifiers: Atrial fibrillation type: permanent Qualified Code(s): I48.2 - Chronic atrial fibrillation (5) Prostate CA Code(s): C61 - MALIGNANT NEOPLASM OF PROSTATE (6) CHF (congestive heart failure) Code(s): I50.9 - HEART FAILURE, UNSPECIFIED (7) COPD exacerbation Code(s): J44.1 - CHRONIC OBSTRUCTIVE PULMONARY DISEASE W (ACUTE) EXACERBATION (8) Choledocholithiasis Code(s): K80.50 - CALCULUS OF BILE DUCT W/O CHOLANGITIS OR CHOLECYST W/O OBST (9) Dilated cbd, acquired Assessment/Plan: secondary to CBD stone Code(s): K83.8 - OTHER SPECIFIED DISEASES OF BILIARY TRACT (10) Bladder spasms Code(s): N32.89 - OTHER SPECIFIED DISORDERS OF BLADDER (11) Bladder spasms Code(s): N32.89 - OTHER SPECIFIED DISORDERS OF BLADDER (12) Hematuria Assessment/Plan: after 2-nd bladder cath (it was difficult per pt; it was done in hte bed rather than standing). Code(s): R31.9 - HEMATURIA, UNSPECIFIED Assessment/Plan ID, Renal, , GI, Cardio consults and f/u are appreciated. OOBTC Off AC, s/p ERCP today. Pt with urinary retention, requires self catheterization; now with bladder spasm AM labs Case was d/w pt and pt's ex- (at bedside); PRN Tylenol for pain; Bladder scan before bladder cath ( to avoid it was can increase bleeding)- both agreed; all questions were answered. Case was d/w pt's nurse. Time spent for managing pt's care: over 40 minutes
[2017-07-25] MEDS ORDERED: ACETAMINOPHEN 325 MG TABLET (FP) ONE (18:30)
[2017-07-25] MEDS: CYCLOBENZAPRINE HCL 10 MG TABLET (FP) PO SCH ×2 (18:32→21:36)
[2017-07-26] MEDS ORDERED: LACTATED RINGERS SOLUTION 1,000 ML/1,000 ML INFUS.BAG IV SCH ×2 (04:00→10:00)
[2017-07-26] MEDS: METOPROLOL TARTRATE 50 MG TABLET (FP) PO SCH ×3 (06:24→22:07)
[2017-07-26] MEDS: CYCLOBENZAPRINE HCL 10 MG TABLET (FP) PO SCH ×3 (06:24→22:07)
[2017-07-26 07:15] LABS: HEMATOCRIT 31.4 % (35.4-49); HEMOGLOBIN 10.4 GM/dL (11.7-16.9); MCH 28.7 pg (25.7-33.7); MEAN CELL VOLUME 86.9 fl (80-96); PLATELET COUNT 163 K/MM3 (134-434); RBC 3.61 M/mm3 (4.00-5.60); RDW 15.6 % (11.9-15.9); WHITE BLOOD COUNT 13.1 K/mm3 (4.0-10.0)
[2017-07-26 07:41] LABS: INR 1.27 (0.82-1.09); PROTHROMBIN TIME (PATIENT) 14.3 SEC (9.7-13.0)
[2017-07-26 07:59] LABS: CHLORIDE 107 mmol/L (98-107); POTASSIUM 4.2 mmol/L (3.5-5.1); SODIUM 138 mmol/L (136-145)
[2017-07-26 08:19] LABS: BILIRUBIN,DIRECT 0.2 mg/dL (0.0-0.2)
[2017-07-26 08:23] LABS: ALK PHOS 82 U/L (45-117); ANION GAP 10 (8-16); BILIRUBIN,TOTAL 0.8 mg/dL (0.2-1.0); BLOOD UREA NITROGEN 32 mg/dL (7-18); CALCIUM 8.2 mg/dL (8.5-10.1); CO2 21 mmol/L (21-32); CREATININE 3.3 mg/dL (0.7-1.3); GLUCOSE,RANDOM 82 mg/dL (74-106); SGOT/AST 8 U/L (15-37); SGPT/ALT 13 U/L (12-78); TOT PROT 5.7 g/dl (6.4-8.2)
[2017-07-26] MEDS ORDERED: PT OWN MED DRAWER 7, Y5N ONE ×3 (09:26→17:35)
[2017-07-26] MEDS: TAMSULOSIN HCL 0.4 MG CAP.ER.24H (FP) PO SCH (09:48)
[2017-07-26] MEDS: LACTOBACILLUS ACIDOPHILUS 1 TABLET PO SCH (09:50)
[2017-07-26] MEDS: FERROUS SO4 325 MG TABLET (FP) PO SCH (09:50)
[2017-07-26] MEDS: METHENAMINE HIPPURATE 1 GM PO SCH ×2 (09:50→17:42)
[2017-07-26] MEDS: NASACORT NR SCH (09:51)
[2017-07-26] MEDS: MULTIVITAMIN PO SCH (09:51)
[2017-07-26] MEDS: BREO IH SCH (09:51)
[2017-07-26] MEDS: COENZYME Q10 PO SCH (09:53)
[2017-07-26] MEDS: VITAMIN D 2000 UNIT PO SCH (09:55)
[2017-07-26] MEDS: PYRIDOXINE HCL (B-6) 50 MG TABLET (FP) PO SCH (09:57)
[2017-07-26] MEDS: THIAMINE HCL 100 MG TABLET (FP) PO SCH (09:57)
[2017-07-26] MEDS: ASCORBIC ACID 500 MG TABLET (FP) PO SCH (09:57)
[2017-07-26] MEDS: VITAMIN E 400 INTERNATIONAL-UNITS CAPSULE (FP) PO SCH (09:57)
[2017-07-26] MEDS: ALLOPURINOL 100 MG TABLET (FP) PO SCH (09:58)
--- NOTE | 2017-07-26 10:25 | PN ---
Progress Note, Physician History of Present Illness: Pt w/o fever, chills, SOB, CP, abd pain. Pt w/o bladder spasm, tolerating Flexeril - Current Medication List Current Medications: Active Medications Acetaminophen (Tylenol -) 650 mg PO Q6H PRN PRN Reason: PAIN LEVEL 1-5 Last Admin: 07/25/17 18:35 Dose: 650 mg Albuterol Sulfate (Ventolin Hfa Inhaler -) 90 puff IH Q6H PRN PRN Reason: SHORTNESS OF BREATH Allopurinol (Zyloprim -) 100 mg PO DAILY [facility] Last Admin: 07/26/17 09:58 Dose: 100 mg Ascorbic Acid (Vitamin C -) 500 mg PO DAILY [facility] Last Admin: 07/26/17 09:57 Dose: 500 mg Cyclobenzaprine HCl (Flexeril -) 10 mg PO TID [facility] Last Admin: 07/26/17 06:24 Dose: 10 mg Docusate Sodium (Colace -) 100 mg PO DAILY PRN PRN Reason: CONSTIPATION Ferrous Sulfate (Feosol -) 325 mg PO DAILY [facility] Last Admin: 07/26/17 09:50 Dose: 325 mg Lactated Ringer's (Lactated Ringers Solution) 1,000 ml in 1,000 mls @ 75 mls/ hr IV ASDIR [facility] Stop: 07/26/17 16:00 Lactated Ringer's (Lactated Ringers Solution) 1,000 ml in 1,000 mls @ 50 mls/ hr IV ASDIR [facility] Lactobacillus Acidophilus (Bacid -) 1 tab PO DAILY [facility] Last Admin: 07/26/17 09:50 Dose: 1 tab Levofloxacin (Levaquin -) 250 mg PO Q2D@0600 [facility] Last Admin: 07/25/17 05:53 Dose: Not Given Metoprolol Tartrate (Lopressor -) 50 mg PO TID [facility] Last Admin: 07/26/17 06:24 Dose: 50 mg Breo 200/25 Mcg Inhaler - Patient Own Med 1 each IH DAILY [facility] Last Admin: 07/26/17 09:51 Dose: 1 each Nasacort Nasal [place] (- Patient Own Med) 1 each NR DAILY [facility] Last Admin: 07/26/17 09:51 Dose: 1 each Multivitamin Tablet (- Patient Own Med) 1 each PO DAILY [facility] Last Admin: 06/02/18 09:51 Dose: 1 each Coenzyme Q10 Capsule (- Patient Own Med) 1 each PO DAILY [facility] Last Admin: 07/26/17 09:53 Dose: 1 each Methenamine Hippurate 1 Gm Tab - Patient Own Med 1 each PO BIDWM [facility] Last Admin: 07/26/17 09:50 Dose: 1 each Vitamin D 2000 Units Capsule - Patient Own Med 1 each PO DAILY [facility] Last Admin: 07/26/17 09:55 Dose: 1 each Pyridoxine HCl (Vitamin B6 -) 50 mg PO DAILY [facility] Last Admin: 07/26/17 09:57 Dose: 50 mg Tamsulosin HCl (Flomax -) 0.4 mg PO 0830 [facility] Last Admin: 07/26/17 09:48 Dose: 0.4 mg Thiamine HCl (Vitamin B1 -) 100 mg PO DAILY [facility] Last Admin: 07/26/17 09:57 Dose: 100 mg Vitamin E (Vitamin E -) 400 unit PO DAILY [facility] Last Admin: 07/26/17 09:57 Dose: 400 unit - Objective Vital Signs: Vital Signs Temperature 98.2 F 07/26/17 10:00 Pulse Rate 80 07/26/17 10:00 Respiratory Rate 20 07/26/17 10:00 Blood Pressure 104/57 07/26/17 10:00 O2 Sat by Pulse Oximetry (%) 96 07/26/17 09:00 Constitutional: Yes: No Distress, Calm Cardiovascular: Yes: Pulse Irregular, S1, S2 Respiratory: Yes: Regular, CTA Bilaterally. No: Rales Gastrointestinal: Yes: Normal Bowel Sounds, Soft. No: Tenderness Edema: No Neurological: Yes: Alert, Oriented Labs: CBC, BMP 07/26/17 05:50 07/26/17 05:50 INR, PTT INR 1.27 (0.82-1.09) H 07/26/17 06:15 Problem List - Problems (1) BRIAN (acute kidney injury) Code(s): N17.9 - ACUTE KIDNEY FAILURE, UNSPECIFIED (2) Urinary tract infection Code(s): N39.0 - URINARY TRACT INFECTION, SITE NOT SPECIFIED Qualifiers: Urinary tract infection type: site unspecified Hematuria presence: with hematuria Qualified Code(s): N39.0 - Urinary tract infection, site not specified; R31.9 - Hematuria, unspecified (3) Urethral stricture Code(s): N35.9 - URETHRAL STRICTURE, UNSPECIFIED Qualifiers: Urethral stricture type: other stricture Qualified Code(s): N35.8 - Other urethral stricture (4) A-fib Code(s): I48.91 - UNSPECIFIED ATRIAL FIBRILLATION Qualifiers: Atrial fibrillation type: permanent Qualified Code(s): I48.2 - Chronic atrial fibrillation (5) Prostate CA Code(s): C61 - MALIGNANT NEOPLASM OF PROSTATE (6) CHF (congestive heart failure) Code(s): I50.9 - HEART FAILURE, UNSPECIFIED (7) COPD exacerbation Code(s): J44.1 - CHRONIC OBSTRUCTIVE PULMONARY DISEASE W (ACUTE) EXACERBATION (8) Choledocholithiasis Code(s): K80.50 - CALCULUS OF BILE DUCT W/O CHOLANGITIS OR CHOLECYST W/O OBST (9) Dilated cbd, acquired Code(s): K83.8 - OTHER SPECIFIED DISEASES OF BILIARY TRACT (10) Bladder spasms Code(s): N32.89 - OTHER SPECIFIED DISORDERS OF BLADDER (11) Bladder spasms Code(s): N32.89 - OTHER SPECIFIED DISORDERS OF BLADDER (12) Hematuria Code(s): R31.9 - HEMATURIA, UNSPECIFIED Assessment/Plan ID, Renal, , GI, Cardio consults and f/u are appreciated. OOBTC Off AC, s/p ERCP today. Pt with urinary retention, requires self catheterization. Bladder spasm resolved on Flexeril- to f/u with To f/u UCX AM labs Case was d/w pt and pt's ex- (at bedside); Case was d/w pt's nurse.
--- NOTE | 2017-07-26 14:30 | PN ---
Progress Note (short form) - Note Progress Note: Renal follow up for BRIAN on CKD Pt seen and examined at the bedside s/p ERCP yesterday no acute complaints no sob, chest pain, abd pain had spasm of pelvis/urethra s/p catherization yesterday and pt also had some blood in the urine Vital Signs Temperature 98.2 F 07/26/17 10:00 Pulse Rate 80 07/26/17 10:00 Respiratory Rate 20 07/26/17 10:00 Blood Pressure 104/57 07/26/17 10:00 O2 Sat by Pulse Oximetry (%) 96 07/26/17 09:00 Intake & Output 07/23/17 07/24/17 07/25/17 07/26/17 23:59 23:59 23:59 23:59 Intake Total 490 036 1928 1905 Output Total 700 800 Balance 20 560 2065 1105 NAD awake and alert RRR CTA mild bladder distension No LE edema CBC, BMP 07/26/17 05:50 07/26/17 05:50 Current Medications Acetaminophen (Tylenol -) 650 mg PO Q6H PRN PRN Reason: PAIN LEVEL 1-5 Last Admin: 07/25/17 18:35 Dose: 650 mg Albuterol Sulfate (Ventolin Hfa Inhaler -) 90 puff IH Q6H PRN PRN Reason: SHORTNESS OF BREATH Allopurinol (Zyloprim -) 100 mg PO DAILY [facility] Last Admin: 07/26/17 09:58 Dose: 100 mg Ascorbic Acid (Vitamin C -) 500 mg PO DAILY [facility] Last Admin: 07/26/17 09:57 Dose: 500 mg Cyclobenzaprine HCl (Flexeril -) 10 mg PO TID [facility] Last Admin: 07/26/17 06:24 Dose: 10 mg Docusate Sodium (Colace -) 100 mg PO DAILY PRN PRN Reason: CONSTIPATION Ferrous Sulfate (Feosol -) 325 mg PO DAILY [facility] Last Admin: 07/26/17 09:50 Dose: 325 mg Lactated Ringer's (Lactated Ringers Solution) 1,000 ml in 1,000 mls @ 75 mls/ hr IV ASDIR [facility] Stop: 07/26/17 16:00 Lactated Ringer's (Lactated Ringers Solution) 1,000 ml in 1,000 mls @ 50 mls/ hr IV ASDIR [facility] Lactobacillus Acidophilus (Bacid -) 1 tab PO DAILY [facility] Last Admin: 07/26/17 09:50 Dose: 1 tab Levofloxacin (Levaquin -) 250 mg PO Q2D@0600 [facility] Last Admin: 07/25/17 05:53 Dose: Not Given Metoprolol Tartrate (Lopressor -) 50 mg PO TID [facility] Last Admin: 07/26/17 06:24 Dose: 50 mg Breo 200/25 Mcg Inhaler - Patient Own Med 1 each IH DAILY [facility] Last Admin: 07/26/17 09:51 Dose: 1 each Nasacort Nasal [place] (- Patient Own Med) 1 each NR DAILY [facility] Last Admin: 07/26/17 09:51 Dose: 1 each Multivitamin Tablet (- Patient Own Med) 1 each PO DAILY [facility] Last Admin: 07/26/17 09:51 Dose: 1 each Coenzyme Q10 Capsule (- Patient Own Med) 1 each PO DAILY [facility] Last Admin: 07/26/17 09:53 Dose: 1 each Methenamine Hippurate 1 Gm Tab - Patient Own Med 1 each PO BIDWM [facility] Last Admin: 07/26/17 09:50 Dose: 1 each Vitamin D 2000 Units Capsule - Patient Own Med 1 each PO DAILY [facility] Last Admin: 07/26/17 09:55 Dose: 1 each Pyridoxine HCl (Vitamin B6 -) 50 mg PO DAILY [facility] Last Admin: 07/26/17 09:57 Dose: 50 mg Tamsulosin HCl (Flomax -) 0.4 mg PO 0830 [facility] Last Admin: 07/26/17 09:48 Dose: 0.4 mg Thiamine HCl (Vitamin B1 -) 100 mg PO DAILY [facility] Last Admin: 07/26/17 09:57 Dose: 100 mg Vitamin E (Vitamin E -) 400 unit PO DAILY [facility] Last Admin: 07/26/17 09:57 Dose: 400 unit 87 year old gentleman with PMhx of CKD stage 4, Prostate Ca s/p radiation Tx, Urethral strictures presented with dysuria and weakness and found to have BRIAN. #BRIAN secondary to bladder outlet obstruction (baseline Cr 2.6) #Urethral strictures #UTI Cr azam to 2.3 today, etiology unclear, possibly related to hypovolemia contineu IVF btu switch to NS will continue to trend renal function if BUN/Cr up trending may need to repeat renal imaging urology follow up Jacques Esquivel DO
--- NOTE | 2017-07-26 14:54 | PN ---
Progress Note, Physician Chief Complaint: Events noted Not in distress History of Present Illness: Patient was seen and examined. Awake and alert. Chart was reviewed Denies chest pain, SOB or palpitations Post ERCP and stone extraction - Current Medication List Current Medications: Active Medications Acetaminophen (Tylenol -) 650 mg PO Q6H PRN PRN Reason: PAIN LEVEL 1-5 Last Admin: 07/25/17 18:35 Dose: 650 mg Albuterol Sulfate (Ventolin Hfa Inhaler -) 90 puff IH Q6H PRN PRN Reason: SHORTNESS OF BREATH Allopurinol (Zyloprim -) 100 mg PO DAILY [facility] Last Admin: 07/26/17 09:58 Dose: 100 mg Ascorbic Acid (Vitamin C -) 500 mg PO DAILY [facility] Last Admin: 07/26/17 09:57 Dose: 500 mg Cyclobenzaprine HCl (Flexeril -) 10 mg PO TID [facility] Last Admin: 07/26/17 14:43 Dose: 10 mg Docusate Sodium (Colace -) 100 mg PO DAILY PRN PRN Reason: CONSTIPATION Ferrous Sulfate (Feosol -) 325 mg PO DAILY [facility] Last Admin: 07/26/17 09:50 Dose: 325 mg Lactated Ringer's (Lactated Ringers Solution) 1,000 ml in 1,000 mls @ 75 mls/ hr IV ASDIR [facility] Stop: 07/26/17 16:00 Lactated Ringer's (Lactated Ringers Solution) 1,000 ml in 1,000 mls @ 50 mls/ hr IV ASDIR [facility] Lactobacillus Acidophilus (Bacid -) 1 tab PO DAILY [facility] Last Admin: 07/26/17 09:50 Dose: 1 tab Levofloxacin (Levaquin -) 250 mg PO Q2D@0600 [facility] Last Admin: 07/25/17 05:53 Dose: Not Given Metoprolol Tartrate (Lopressor -) 50 mg PO TID [facility] Last Admin: 07/26/17 14:43 Dose: 50 mg Breo 200/25 Mcg Inhaler - Patient Own Med 1 each IH DAILY [facility] Last Admin: 07/26/17 09:51 Dose: 1 each Nasacort Nasal [place] (- Patient Own Med) 1 each NR DAILY [facility] Last Admin: 07/26/17 09:51 Dose: 1 each Multivitamin Tablet (- Patient Own Med) 1 each PO DAILY [facility] Last Admin: 07/26/17 09:51 Dose: 1 each Coenzyme Q10 Capsule (- Patient Own Med) 1 each PO DAILY [facility] Last Admin: 07/26/17 09:53 Dose: 1 each Methenamine Hippurate 1 Gm Tab - Patient Own Med 1 each PO BIDWM [facility] Last Admin: 07/26/17 09:50 Dose: 1 each Vitamin D 2000 Units Capsule - Patient Own Med 1 each PO DAILY [facility] Last Admin: 07/26/17 09:55 Dose: 1 each Pyridoxine HCl (Vitamin B6 -) 50 mg PO DAILY [facility] Last Admin: 07/26/17 09:57 Dose: 50 mg Tamsulosin HCl (Flomax -) 0.4 mg PO 0830 [facility] Last Admin: 07/26/17 09:48 Dose: 0.4 mg Thiamine HCl (Vitamin B1 -) 100 mg PO DAILY [facility] Last Admin: 07/26/17 09:57 Dose: 100 mg Vitamin E (Vitamin E -) 400 unit PO DAILY [facility] Last Admin: 07/26/17 09:57 Dose: 400 unit - Objective Vital Signs: Vital Signs Temperature 98.2 F 07/26/17 10:00 Pulse Rate 80 07/26/17 10:00 Respiratory Rate 20 07/26/17 10:00 Blood Pressure 104/57 07/26/17 10:00 O2 Sat by Pulse Oximetry (%) 96 07/26/17 09:00 HENT: Yes: Atraumatic Neck: Yes: Supple Cardiovascular: Yes: Regular Rate and Rhythm, S1, S2 Respiratory: Yes: CTA Bilaterally Gastrointestinal: Yes: Normal Bowel Sounds, Soft. No: Tenderness Edema: No Labs: CBC, BMP 07/26/17 05:50 07/26/17 05:50 INR, PTT INR 1.27 (0.82-1.09) H 07/26/17 06:15 Problem List - Problems (1) BRIAN (acute kidney injury) Code(s): N17.9 - ACUTE KIDNEY FAILURE, UNSPECIFIED (2) Choledocholithiasis Code(s): K80.50 - CALCULUS OF BILE DUCT W/O CHOLANGITIS OR CHOLECYST W/O OBST (3) Urinary tract infection Code(s): N39.0 - URINARY TRACT INFECTION, SITE NOT SPECIFIED Qualifiers: Urinary tract infection type: site unspecified Hematuria presence: with hematuria Qualified Code(s): N39.0 - Urinary tract infection, site not specified; R31.9 - Hematuria, unspecified (4) A-fib Code(s): I48.91 - UNSPECIFIED ATRIAL FIBRILLATION Qualifiers: Atrial fibrillation type: permanent Qualified Code(s): I48.2 - Chronic atrial fibrillation (5) Chronic kidney disease Code(s): N18.9 - CHRONIC KIDNEY DISEASE, UNSPECIFIED Qualifiers: Chronic kidney disease stage: stage 2 (mild) Qualified Code(s): N18.2 - Chronic kidney disease, stage 2 (mild) (6) Congestive heart failure with LV diastolic dysfunction, NYHA class 2 Code(s): I50.30 - UNSPECIFIED DIASTOLIC (CONGESTIVE) HEART FAILURE (7) History of pacemaker Code(s): Z95.0 - PRESENCE OF CARDIAC PACEMAKER (8) Hyperlipidemia Code(s): E78.5 - HYPERLIPIDEMIA, UNSPECIFIED Qualifiers: Hyperlipidemia type: pure hypercholesterolemia Qualified Code(s): E78.00 - Pure hypercholesterolemia, unspecified (9) Hypertension Code(s): I10 - ESSENTIAL (PRIMARY) HYPERTENSION Qualifiers: Hypertension type: essential hypertension (10) Kidney stones Code(s): N20.0 - CALCULUS OF KIDNEY (11) SSS (sick sinus syndrome) Code(s): I49.5 - SICK SINUS SYNDROME Assessment/Plan 1. Post ERCP for suspected choledocholithiasis s/p stone extraction 2. LV diastolic dysfunction 3. CAD non-obstructive CAD angina pectoris 4. Permanent atrial fibrillation on A/C with Coumadin 5. Sick Sinus Syndrome post PPM 6. HTN 7. Hypercholesterolemia 8. Degenerative joint disease 9. Acute on CKD secondary to bladder outlet obstruction improving 10. History of bilateral nephrolithiasis and urethral stricture 11. Chronic anemia 12. COPD PLAN: 1. Continue current medical therapy 2. Continue Lopressor 50 tid 3. Restart Coumadin when cleared by GI 4. Bronchodilator as needed, monitor renal recovery, resume Losartan once renal function stabilizes 5. Complete antibiotics course as per ID Further plans are to follow Aleksey Marquez MD
--- NOTE | 2017-07-26 15:34 | PN ---
GI Progress Note Subjective: GI F/U FOR DR TUBBS NO COMPLAINTS TOLERATED [PROCEDURE WELL NO N/V/F/C/S NO ABD PAIN ATE LIQUIDS WITHOUT ANY PROBLEMS - Objective Vital Signs: Vital Signs Temperature 98.1 F 07/26/17 14:47 Pulse Rate 89 07/26/17 14:47 Respiratory Rate 18 07/26/17 14:47 Blood Pressure 100/57 07/26/17 14:47 O2 Sat by Pulse Oximetry (%) 96 07/26/17 09:00 Constitutional: Well Nourished, No Distress, Calm Eyes: Yes: WNL Gastrointestinal Inspection: Yes: WNL (+BS/ OBESE/ VERY SOFT AND NT TO PALPATION ) Labs: CBC, BMP 07/26/17 05:50 07/26/17 05:50 INR, PTT INR 1.27 (0.82-1.09) H 07/26/17 06:15 Assessment/Plan S/P ERCP WITH EXTRACTION OF CBD STONES NO COMPLAINTS NO PAIN NO ADVERSE SEQ. ON ABX EATING AND WILL ADVANCE DIET LABS UNCHANGED AND NORMAL 2GM NA DIET TOLERATED/ D/W NURSING TEAM MD LEILANI
[2017-07-26] MEDS: LACTATED RINGERS SOLUTION 1,000 ML/1,000 ML INFUS.BAG IV SCH (16:00)
[2017-07-27] MEDS: METOPROLOL TARTRATE 50 MG TABLET (FP) PO SCH ×3 (05:49→22:07)
[2017-07-27] MEDS: CYCLOBENZAPRINE HCL 10 MG TABLET (FP) PO SCH ×3 (05:49→22:07)
[2017-07-27] MEDS: LACTATED RINGERS SOLUTION 1,000 ML/1,000 ML INFUS.BAG IV SCH ×2 (05:52→17:53)
[2017-07-27 07:29] LABS: HEMATOCRIT 28.3 % (35.4-49); HEMOGLOBIN 9.6 GM/dL (11.7-16.9); MCH 29.1 pg (25.7-33.7); MEAN CELL VOLUME 85.6 fl (80-96); MEAN PLT VOLUME 9.1 fl (7.5-11.1); PLATELET COUNT 139 K/MM3 (134-434); RBC 3.31 M/mm3 (4.00-5.60); RDW 15.5 % (11.9-15.9); WHITE BLOOD COUNT 7.5 K/mm3 (4.0-10.0)
[2017-07-27 07:44] LABS: INR 1.31 (0.82-1.09); PROTHROMBIN TIME (PATIENT) 14.8 SEC (9.7-13.0)
[2017-07-27 07:56] LABS: CHLORIDE 109 mmol/L (98-107); POTASSIUM 3.6 mmol/L (3.5-5.1); SODIUM 140 mmol/L (136-145)
[2017-07-27 08:16] LABS: ALBUMIN 2.8 g/dl (3.4-5.0); ALK PHOS 79 U/L (45-117); AMYLASE 29 U/L (25-115); ANION GAP 12 (8-16); BILIRUBIN,TOTAL 1.1 mg/dL (0.2-1.0); BLOOD UREA NITROGEN 28 mg/dL (7-18); CALCIUM 8.2 mg/dL (8.5-10.1); CO2 19 mmol/L (21-32); CREATININE 3.1 mg/dL (0.7-1.3); GLUCOSE,RANDOM 82 mg/dL (74-106); LIPASE 57 U/L (73-393); SGOT/AST 7 U/L (15-37); SGPT/ALT 13 U/L (12-78); TOT PROT 5.3 g/dl (6.4-8.2)
[2017-07-27] MEDS ORDERED: PT OWN MED DRAWER 7, Y5N ONE ×3 (08:27→17:32)
[2017-07-27] MEDS: METHENAMINE HIPPURATE 1 GM PO SCH ×2 (08:33→17:56)
[2017-07-27] MEDS: TAMSULOSIN HCL 0.4 MG CAP.ER.24H (FP) PO SCH (08:34)
[2017-07-27] MEDS: FERROUS SO4 325 MG TABLET (FP) PO SCH (09:37)
[2017-07-27] MEDS: LACTOBACILLUS ACIDOPHILUS 1 TABLET PO SCH (09:37)
[2017-07-27] MEDS: MULTIVITAMIN PO SCH (09:38)
[2017-07-27] MEDS: VITAMIN D 2000 UNIT PO SCH (09:38)
[2017-07-27] MEDS: BREO IH SCH (09:38)
[2017-07-27] MEDS: COENZYME Q10 PO SCH (09:38)
[2017-07-27] MEDS: NASACORT NR SCH (09:38)
[2017-07-27] MEDS: THIAMINE HCL 100 MG TABLET (FP) PO SCH (09:39)
[2017-07-27] MEDS: ASCORBIC ACID 500 MG TABLET (FP) PO SCH (09:39)
[2017-07-27] MEDS: ALLOPURINOL 100 MG TABLET (FP) PO SCH (09:39)
[2017-07-27] MEDS: VITAMIN E 400 INTERNATIONAL-UNITS CAPSULE (FP) PO SCH (09:48)
[2017-07-27] MEDS: PYRIDOXINE HCL (B-6) 50 MG TABLET (FP) PO SCH (09:48)
--- NOTE | 2017-07-27 09:59 | PN ---
Progress Note (short form) - Note Progress Note: Renal follow up for BRIAN on CKD Pt seen and examined at the bedside no acute complaints making urine no sob, chest pain, abd pain Vital Signs Temperature 98.2 F 07/27/17 06:00 Pulse Rate 74 07/27/17 06:00 Respiratory Rate 18 07/27/17 06:00 Blood Pressure 112/67 07/27/17 06:00 O2 Sat by Pulse Oximetry (%) 95 07/26/17 20:40 Intake & Output 07/24/17 07/25/17 07/26/17 07/27/17 23:59 23:59 23:59 23:59 Intake Total 560 2065 2125 450 Output Total 1600 1000 Balance 560 2065 525 -550 NAD awake and alert RRR CTA mild bladder distension No LE edema CBC, BMP 07/27/17 06:00 07/27/17 06:00 Current Medications Acetaminophen (Tylenol -) 650 mg PO Q6H PRN PRN Reason: PAIN LEVEL 1-5 Last Admin: 07/25/17 18:35 Dose: 650 mg Albuterol Sulfate (Ventolin Hfa Inhaler -) 90 puff IH Q6H PRN PRN Reason: SHORTNESS OF BREATH Allopurinol (Zyloprim -) 100 mg PO DAILY [facility] Last Admin: 07/27/17 09:39 Dose: 100 mg Ascorbic Acid (Vitamin C -) 500 mg PO DAILY [facility] Last Admin: 07/27/17 09:39 Dose: 500 mg Cyclobenzaprine HCl (Flexeril -) 10 mg PO TID [facility] Last Admin: 07/27/17 05:49 Dose: 10 mg Docusate Sodium (Colace -) 100 mg PO DAILY PRN PRN Reason: CONSTIPATION Ferrous Sulfate (Feosol -) 325 mg PO DAILY [facility] Last Admin: 07/27/17 09:37 Dose: 325 mg Lactated Ringer's (Lactated Ringers Solution) 1,000 ml in 1,000 mls @ 50 mls/ hr IV ASDIR [facility] Last Admin: 07/27/17 05:52 Dose: 50 mls/hr Lactobacillus Acidophilus (Bacid -) 1 tab PO DAILY [facility] Last Admin: 07/27/17 09:37 Dose: 1 tab Levofloxacin (Levaquin -) 250 mg PO Q2D@0600 [facility] Last Admin: 06/03/18 05:49 Dose: 250 mg Metoprolol Tartrate (Lopressor -) 50 mg PO TID [facility] Last Admin: 07/27/17 05:49 Dose: 50 mg Breo 200/25 Mcg Inhaler - Patient Own Med 1 each IH DAILY [facility] Last Admin: 07/27/17 09:38 Dose: 1 each Nasacort Nasal [place] (- Patient Own Med) 1 each NR DAILY [facility] Last Admin: 07/27/17 09:38 Dose: 1 each Multivitamin Tablet (- Patient Own Med) 1 each PO DAILY [facility] Last Admin: 07/27/17 09:38 Dose: 1 each Coenzyme Q10 Capsule (- Patient Own Med) 1 each PO DAILY [facility] Last Admin: 07/27/17 09:38 Dose: 1 each Methenamine Hippurate 1 Gm Tab - Patient Own Med 1 each PO BIDWM [facility] Last Admin: 07/27/17 08:33 Dose: 1 each Vitamin D 2000 Units Capsule - Patient Own Med 1 each PO DAILY [facility] Last Admin: 07/27/17 09:38 Dose: 1 each Pyridoxine HCl (Vitamin B6 -) 50 mg PO DAILY [facility] Last Admin: 07/27/17 09:48 Dose: 50 mg Tamsulosin HCl (Flomax -) 0.4 mg PO 0830 [facility] Last Admin: 07/27/17 08:34 Dose: 0.4 mg Thiamine HCl (Vitamin B1 -) 100 mg PO DAILY [facility] Last Admin: 07/27/17 09:39 Dose: 100 mg Vitamin E (Vitamin E -) 400 unit PO DAILY [facility] Last Admin: 07/27/17 09:48 Dose: 400 unit 87 year old gentleman with PMhx of CKD stage 4, Prostate Ca s/p radiation Tx, Urethral strictures presented with dysuria and weakness and found to have BRIAN. #BRIAN secondary to bladder outlet obstruction (baseline Cr 2.6) #Urethral strictures #UTI Renal function improving, pt making urine continue IVF for now Trend BUN/Cr Urology follow up GI follow up Jacques Esquivel DO
--- NOTE | 2017-07-27 12:33 | PN ---
Progress Note, Physician History of Present Illness: Pt w/o fever, chills, SOB, CP, abd pain. Pt w/o bladder spasm, tolerating Flexeril. Pt slightly constipated. - Current Medication List Current Medications: Active Medications Acetaminophen (Tylenol -) 650 mg PO Q6H PRN PRN Reason: PAIN LEVEL 1-5 Last Admin: 07/25/17 18:35 Dose: 650 mg Albuterol Sulfate (Ventolin Hfa Inhaler -) 90 puff IH Q6H PRN PRN Reason: SHORTNESS OF BREATH Allopurinol (Zyloprim -) 100 mg PO DAILY [facility] Last Admin: 07/27/17 09:39 Dose: 100 mg Ascorbic Acid (Vitamin C -) 500 mg PO DAILY [facility] Last Admin: 07/27/17 09:39 Dose: 500 mg Cyclobenzaprine HCl (Flexeril -) 10 mg PO TID [facility] Last Admin: 07/27/17 05:49 Dose: 10 mg Docusate Sodium (Colace -) 100 mg PO DAILY PRN PRN Reason: CONSTIPATION Ferrous Sulfate (Feosol -) 325 mg PO DAILY [facility] Last Admin: 07/27/17 09:37 Dose: 325 mg Lactated Ringer's (Lactated Ringers Solution) 1,000 ml in 1,000 mls @ 50 mls/ hr IV ASDIR [facility] Last Admin: 07/27/17 05:52 Dose: 50 mls/hr Lactobacillus Acidophilus (Bacid -) 1 tab PO DAILY [facility] Last Admin: 07/27/17 09:37 Dose: 1 tab Levofloxacin (Levaquin -) 250 mg PO Q2D@0600 [facility] Last Admin: 07/27/17 05:49 Dose: 250 mg Metoprolol Tartrate (Lopressor -) 50 mg PO TID [facility] Last Admin: 07/27/17 05:49 Dose: 50 mg Breo 200/25 Mcg Inhaler - Patient Own Med 1 each IH DAILY [facility] Last Admin: 07/27/17 09:38 Dose: 1 each Nasacort Nasal [place] (- Patient Own Med) 1 each NR DAILY [facility] Last Admin: 07/27/17 09:38 Dose: 1 each Multivitamin Tablet (- Patient Own Med) 1 each PO DAILY [facility] Last Admin: 07/27/17 09:38 Dose: 1 each Coenzyme Q10 Capsule (- Patient Own Med) 1 each PO DAILY [facility] Last Admin: 07/27/17 09:38 Dose: 1 each Methenamine Hippurate 1 Gm Tab - Patient Own Med 1 each PO BIDWM [facility] Last Admin: 07/27/17 08:33 Dose: 1 each Vitamin D 2000 Units Capsule - Patient Own Med 1 each PO DAILY [facility] Last Admin: 07/27/17 09:38 Dose: 1 each Pyridoxine HCl (Vitamin B6 -) 50 mg PO DAILY [facility] Last Admin: 07/27/17 09:48 Dose: 50 mg Tamsulosin HCl (Flomax -) 0.4 mg PO 0830 [facility] Last Admin: 07/27/17 08:34 Dose: 0.4 mg Thiamine HCl (Vitamin B1 -) 100 mg PO DAILY [facility] Last Admin: 07/27/17 09:39 Dose: 100 mg Vitamin E (Vitamin E -) 400 unit PO DAILY [facility] Last Admin: 07/27/17 09:48 Dose: 400 unit - Objective Vital Signs: Vital Signs Temperature 98.2 F 07/27/17 06:00 Pulse Rate 74 07/27/17 06:00 Respiratory Rate 18 07/27/17 06:00 Blood Pressure 112/67 07/27/17 06:00 O2 Sat by Pulse Oximetry (%) 95 07/26/17 20:40 Constitutional: Yes: No Distress, Calm Cardiovascular: Yes: Regular Rate and Rhythm, S1, S2 Respiratory: Yes: Regular, CTA Bilaterally. No: Rales Gastrointestinal: Yes: Normal Bowel Sounds, Soft. No: Tenderness Edema: No Neurological: Yes: Alert, Oriented Labs: CBC, BMP 07/27/17 06:00 07/27/17 06:00 INR, PTT INR 1.31 (0.82-1.09) H 07/27/17 06:00 Problem List - Problems (1) BRIAN (acute kidney injury) Code(s): N17.9 - ACUTE KIDNEY FAILURE, UNSPECIFIED (2) Urinary tract infection Code(s): N39.0 - URINARY TRACT INFECTION, SITE NOT SPECIFIED Qualifiers: Urinary tract infection type: site unspecified Hematuria presence: with hematuria Qualified Code(s): N39.0 - Urinary tract infection, site not specified; R31.9 - Hematuria, unspecified (3) Urethral stricture Code(s): N35.9 - URETHRAL STRICTURE, UNSPECIFIED Qualifiers: Urethral stricture type: other stricture Qualified Code(s): N35.8 - Other urethral stricture (4) A-fib Code(s): I48.91 - UNSPECIFIED ATRIAL FIBRILLATION Qualifiers: Atrial fibrillation type: permanent Qualified Code(s): I48.2 - Chronic atrial fibrillation (5) Prostate CA Code(s): C61 - MALIGNANT NEOPLASM OF PROSTATE (6) CHF (congestive heart failure) Code(s): I50.9 - HEART FAILURE, UNSPECIFIED (7) COPD exacerbation Code(s): J44.1 - CHRONIC OBSTRUCTIVE PULMONARY DISEASE W (ACUTE) EXACERBATION (8) Choledocholithiasis Code(s): K80.50 - CALCULUS OF BILE DUCT W/O CHOLANGITIS OR CHOLECYST W/O OBST (9) Dilated cbd, acquired Code(s): K83.8 - OTHER SPECIFIED DISEASES OF BILIARY TRACT (10) Bladder spasms Code(s): N32.89 - OTHER SPECIFIED DISORDERS OF BLADDER (11) Bladder spasms Code(s): N32.89 - OTHER SPECIFIED DISORDERS OF BLADDER (12) Hematuria Code(s): R31.9 - HEMATURIA, UNSPECIFIED Assessment/Plan ID, Renal, , GI, Cardio consults and f/u are appreciated. OOBTC Off AC, s/p ERCP today. Pt with urinary retention, requires self catheterization. Bladder spasm resolved on Flexeril- to f/u with UCX is negative. Creatinine is improving. Amylase and lipase remains normal AM labs Case was d/w pt and pt's ex- (at bedside); Case was d/w pt's nurse.
[2017-07-27] MEDS ORDERED: ALBUTEROL SO4 18 GM HFA INHALER IH PRN (13:36)
[2017-07-27] MEDS: DOCUSATE SODIUM 100 MG CAPSULE (FP) PO SCH ×2 (14:40→22:07)
[2017-07-28] MEDS: CYCLOBENZAPRINE HCL 10 MG TABLET (FP) PO SCH ×3 (05:50→21:53)
[2017-07-28] MEDS: METOPROLOL TARTRATE 50 MG TABLET (FP) PO SCH ×3 (05:50→21:54)
[2017-07-28] MEDS: LACTATED RINGERS SOLUTION 1,000 ML/1,000 ML INFUS.BAG IV SCH (05:50)
[2017-07-28 07:39] LABS: HEMATOCRIT 30.6 % (35.4-49); HEMOGLOBIN 10.3 GM/dL (11.7-16.9); MCH 28.7 pg (25.7-33.7); MCHC 33.5 g/dl (32.0-35.9); MEAN CELL VOLUME 85.6 fl (80-96); MEAN PLT VOLUME 9.2 fl (7.5-11.1); PLATELET COUNT 166 K/MM3 (134-434); RBC 3.58 M/mm3 (4.00-5.60); RDW 15.4 % (11.9-15.9); WHITE BLOOD COUNT 7.3 K/mm3 (4.0-10.0)
[2017-07-28 07:54] LABS: CHLORIDE 109 mmol/L (98-107); POTASSIUM 3.8 mmol/L (3.5-5.1); SODIUM 140 mmol/L (136-145)
[2017-07-28] MEDS ORDERED: PT OWN MED DRAWER 7, Y5N ONE (07:58)
[2017-07-28 08:04] LABS: ALK PHOS 88 U/L (45-117); ANION GAP 8 (8-16); BILIRUBIN,TOTAL 0.4 mg/dL (0.2-1.0); BLOOD UREA NITROGEN 28 mg/dL (7-18); CALCIUM 8.2 mg/dL (8.5-10.1); CO2 23 mmol/L (21-32); CREATININE 2.9 mg/dL (0.7-1.3); GLUCOSE,RANDOM 90 mg/dL (74-106); LIPASE 75 U/L (73-393); MAGNESIUM 1.6 mg/dL (1.8-2.4); PHOSPHOROUS 3.5 mg/dL (2.5-4.9); SGOT/AST 7 U/L (15-37); SGPT/ALT 13 U/L (12-78); TOT PROT 5.9 g/dl (6.4-8.2)
[2017-07-28] MEDS: METHENAMINE HIPPURATE 1 GM PO SCH ×2 (08:04→17:11)
[2017-07-28] MEDS: TAMSULOSIN HCL 0.4 MG CAP.ER.24H (FP) PO SCH (08:04)
[2017-07-28 08:07] LABS: INR 1.23 (0.82-1.09); PROTHROMBIN TIME (PATIENT) 13.9 SEC (9.7-13.0)
[2017-07-28] MEDS: LACTOBACILLUS ACIDOPHILUS 1 TABLET PO SCH (09:14)
[2017-07-28] MEDS: DOCUSATE SODIUM 100 MG CAPSULE (FP) PO SCH ×2 (09:14→21:53)
[2017-07-28] MEDS: ALLOPURINOL 100 MG TABLET (FP) PO SCH (09:14)
[2017-07-28] MEDS: ASCORBIC ACID 500 MG TABLET (FP) PO SCH (09:14)
[2017-07-28] MEDS: THIAMINE HCL 100 MG TABLET (FP) PO SCH (09:14)
[2017-07-28] MEDS: FERROUS SO4 325 MG TABLET (FP) PO SCH (09:14)
[2017-07-28] MEDS: MULTIVITAMIN PO SCH (09:15)
[2017-07-28] MEDS: COENZYME Q10 PO SCH (09:15)
[2017-07-28] MEDS: BREO IH SCH (09:15)
[2017-07-28] MEDS: PYRIDOXINE HCL (B-6) 50 MG TABLET (FP) PO SCH (09:15)
[2017-07-28] MEDS: NASACORT NR SCH (09:15)
[2017-07-28] MEDS: VITAMIN D 2000 UNIT PO SCH (09:15)
[2017-07-28] MEDS: VITAMIN E 400 INTERNATIONAL-UNITS CAPSULE (FP) PO SCH (09:16)
[2017-07-28] MEDS ORDERED: MAGNESIUM SULF 50% (8.12 MEQ/2 ML-1 GM VIAL) IVPB ONE (09:35)
--- NOTE | 2017-07-28 09:36 | PN ---
Progress Note, Physician History of Present Illness: Pt w/o fever, chills, SOB, CP, abd pain. Pt w/o bladder spasm, tolerating Flexeril. - Current Medication List Current Medications: Active Medications Acetaminophen (Tylenol -) 650 mg PO Q6H PRN PRN Reason: PAIN LEVEL 1-5 Last Admin: 07/25/17 18:35 Dose: 650 mg Albuterol Sulfate (Ventolin Hfa Inhaler -) 1 puff IH Q6H PRN PRN Reason: SHORTNESS OF BREATH Allopurinol (Zyloprim -) 100 mg PO DAILY [facility] Last Admin: 07/28/17 09:14 Dose: 100 mg Ascorbic Acid (Vitamin C -) 500 mg PO DAILY [facility] Last Admin: 07/28/17 09:14 Dose: 500 mg Cyclobenzaprine HCl (Flexeril -) 10 mg PO TID [facility] Last Admin: 07/28/17 05:50 Dose: 10 mg Docusate Sodium (Colace -) 100 mg PO BID [facility] Last Admin: 07/28/17 09:14 Dose: 100 mg Ferrous Sulfate (Feosol -) 325 mg PO DAILY [facility] Last Admin: 07/28/17 09:14 Dose: 325 mg Lactated Ringer's (Lactated Ringers Solution) 1,000 ml in 1,000 mls @ 50 mls/ hr IV ASDIR [facility] Last Admin: 07/28/17 05:50 Dose: 50 mls/hr Lactobacillus Acidophilus (Bacid -) 1 tab PO DAILY [facility] Last Admin: 07/28/17 09:14 Dose: 1 tab Metoprolol Tartrate (Lopressor -) 50 mg PO TID [facility] Last Admin: 07/28/17 05:50 Dose: 50 mg Breo 200/25 Mcg Inhaler - Patient Own Med 1 each IH DAILY [facility] Last Admin: 07/28/17 09:15 Dose: 1 each Nasacort Nasal [place] (- Patient Own Med) 1 each NR DAILY [facility] Last Admin: 07/28/17 09:15 Dose: 1 each Multivitamin Tablet (- Patient Own Med) 1 each PO DAILY [facility] Last Admin: 07/28/17 09:15 Dose: 1 each Coenzyme Q10 Capsule (- Patient Own Med) 1 each PO DAILY [facility] Last Admin: 07/28/17 09:15 Dose: 1 each Methenamine Hippurate 1 Gm Tab - Patient Own Med 1 each PO BIDWM [facility] Last Admin: 07/28/17 08:04 Dose: 1 each Vitamin D 2000 Units Capsule - Patient Own Med 1 each PO DAILY [facility] Last Admin: 07/28/17 09:15 Dose: 1 each Pyridoxine HCl (Vitamin B6 -) 50 mg PO DAILY [facility] Last Admin: 07/28/17 09:15 Dose: 50 mg Tamsulosin HCl (Flomax -) 0.4 mg PO 0830 [facility] Last Admin: 07/28/17 08:04 Dose: 0.4 mg Thiamine HCl (Vitamin B1 -) 100 mg PO DAILY [facility] Last Admin: 07/28/17 09:14 Dose: 100 mg Vitamin E (Vitamin E -) 400 unit PO DAILY [facility] Last Admin: 07/28/17 09:16 Dose: 400 unit - Objective Vital Signs: Vital Signs Temperature 98.6 F 07/28/17 09:06 Pulse Rate 76 07/28/17 09:06 Respiratory Rate 18 07/28/17 09:06 Blood Pressure 122/79 07/28/17 09:06 O2 Sat by Pulse Oximetry (%) 94 L 07/27/17 21:00 Constitutional: Yes: No Distress, Calm Cardiovascular: Yes: Regular Rate and Rhythm, S1, S2 Respiratory: Yes: Regular, CTA Bilaterally. No: Rales Gastrointestinal: Yes: Normal Bowel Sounds, Soft. No: Tenderness Edema: No Neurological: Yes: Alert, Oriented Labs: CBC, BMP 07/28/17 06:20 07/28/17 06:20 INR, PTT INR 1.23 (0.82-1.09) H 07/28/17 06:45 Problem List - Problems (1) BRIAN (acute kidney injury) Code(s): N17.9 - ACUTE KIDNEY FAILURE, UNSPECIFIED (2) Urinary tract infection Code(s): N39.0 - URINARY TRACT INFECTION, SITE NOT SPECIFIED Qualifiers: Urinary tract infection type: site unspecified Hematuria presence: with hematuria Qualified Code(s): N39.0 - Urinary tract infection, site not specified; R31.9 - Hematuria, unspecified (3) Urethral stricture Code(s): N35.9 - URETHRAL STRICTURE, UNSPECIFIED Qualifiers: Urethral stricture type: other stricture Qualified Code(s): N35.8 - Other urethral stricture (4) A-fib Code(s): I48.91 - UNSPECIFIED ATRIAL FIBRILLATION Qualifiers: Atrial fibrillation type: permanent Qualified Code(s): I48.2 - Chronic atrial fibrillation (5) Prostate CA Code(s): C61 - MALIGNANT NEOPLASM OF PROSTATE (6) CHF (congestive heart failure) Code(s): I50.9 - HEART FAILURE, UNSPECIFIED (7) COPD exacerbation Code(s): J44.1 - CHRONIC OBSTRUCTIVE PULMONARY DISEASE W (ACUTE) EXACERBATION (8) Choledocholithiasis Code(s): K80.50 - CALCULUS OF BILE DUCT W/O CHOLANGITIS OR CHOLECYST W/O OBST (9) Dilated cbd, acquired Code(s): K83.8 - OTHER SPECIFIED DISEASES OF BILIARY TRACT (10) Bladder spasms Code(s): N32.89 - OTHER SPECIFIED DISORDERS OF BLADDER (11) Bladder spasms Code(s): N32.89 - OTHER SPECIFIED DISORDERS OF BLADDER (12) Hematuria Code(s): R31.9 - HEMATURIA, UNSPECIFIED (13) Hypomagnesemia Code(s): E83.42 - HYPOMAGNESEMIA Assessment/Plan ID, Renal, , GI, Cardio consults and f/u are appreciated. OOBTC Off AC, s/p ERCP today. Pt with urinary retention, requires self catheterization-he did it this AM w/o difficulty. Bladder spasm resolved on Flexeril- to f/u with ( to recall) UCX is negative. Creatinine is improving -on IVF. AM labs. To recall GI if we restart AC. Case was d/w pt's nurse.
[2017-07-28] MEDS ORDERED: MAGNESIUM SULFATE IN WATER 2 GM/50 ML IVPB IVPB ONE (11:00)
--- NOTE | 2017-07-28 11:28 | PN ---
Progress Note, Physician History of Present Illness: POD#3 ERCP with stone retrieval now planned for lap cholecystectomy while off a/ c. He remains asymptomatic from CV-standpoint and denies chest pain, near or true syncope or palpitations. He denies fever or chills or abd pain. He denies paroxysmal nocturnal dyspnea or orthopnea. - Current Medication List Current Medications: Active Medications Acetaminophen (Tylenol -) 650 mg PO Q6H PRN PRN Reason: PAIN LEVEL 1-5 Last Admin: 07/25/17 18:35 Dose: 650 mg Albuterol Sulfate (Ventolin Hfa Inhaler -) 1 puff IH Q6H PRN PRN Reason: SHORTNESS OF BREATH Allopurinol (Zyloprim -) 100 mg PO DAILY [facility] Last Admin: 07/28/17 09:14 Dose: 100 mg Ascorbic Acid (Vitamin C -) 500 mg PO DAILY [facility] Last Admin: 07/28/17 09:14 Dose: 500 mg Cyclobenzaprine HCl (Flexeril -) 10 mg PO TID [facility] Last Admin: 07/28/17 05:50 Dose: 10 mg Docusate Sodium (Colace -) 100 mg PO BID [facility] Last Admin: 07/28/17 09:14 Dose: 100 mg Ferrous Sulfate (Feosol -) 325 mg PO DAILY [facility] Last Admin: 07/28/17 09:14 Dose: 325 mg Lactated Ringer's (Lactated Ringers Solution) 1,000 ml in 1,000 mls @ 50 mls/ hr IV ASDIR [facility] Last Admin: 07/28/17 05:50 Dose: 50 mls/hr Magnesium Sulfate (Magnesium Sulf 2 G/50 Ml Bag) 2 gm in 50 mls @ 50 mls/hr IVPB ONCE ONE Stop: 07/28/17 11:59 Last Admin: 07/28/17 10:54 Dose: 50 mls/hr Lactobacillus Acidophilus (Bacid -) 1 tab PO DAILY [facility] Last Admin: 07/28/17 09:14 Dose: 1 tab Metoprolol Tartrate (Lopressor -) 50 mg PO TID [facility] Last Admin: 07/28/17 05:50 Dose: 50 mg Breo 200/25 Mcg Inhaler - Patient Own Med 1 each IH DAILY [facility] Last Admin: 07/28/17 09:15 Dose: 1 each Nasacort Nasal [place] (- Patient Own Med) 1 each NR DAILY [facility] Last Admin: 07/28/17 09:15 Dose: 1 each Multivitamin Tablet (- Patient Own Med) 1 each PO DAILY [facility] Last Admin: 07/28/17 09:15 Dose: 1 each Coenzyme Q10 Capsule (- Patient Own Med) 1 each PO DAILY [facility] Last Admin: 07/28/17 09:15 Dose: 1 each Methenamine Hippurate 1 Gm Tab - Patient Own Med 1 each PO BIDWM [facility] Last Admin: 07/28/17 08:04 Dose: 1 each Vitamin D 2000 Units Capsule - Patient Own Med 1 each PO DAILY [facility] Last Admin: 07/28/17 09:15 Dose: 1 each Pyridoxine HCl (Vitamin B6 -) 50 mg PO DAILY [facility] Last Admin: 07/28/17 09:15 Dose: 50 mg Tamsulosin HCl (Flomax -) 0.4 mg PO 30 [facility] Last Admin: 07/28/17 08:04 Dose: 0.4 mg Thiamine HCl (Vitamin B1 -) 100 mg PO DAILY [facility] Last Admin: 07/28/17 09:14 Dose: 100 mg Vitamin E (Vitamin E -) 400 unit PO DAILY [facility] Last Admin: 07/28/17 09:16 Dose: 400 unit - Objective Vital Signs: Vital Signs Temperature 98.6 F 07/28/17 09:06 Pulse Rate 76 07/28/17 09:06 Respiratory Rate 18 07/28/17 09:06 Blood Pressure 122/79 07/28/17 09:06 O2 Sat by Pulse Oximetry (%) 97 07/28/17 09:00 Constitutional: Yes: No Distress, Calm Neck: Yes: Supple Cardiovascular: Yes: Regular Rate and Rhythm Respiratory: Yes: Regular, CTA Bilaterally Gastrointestinal: Yes: Soft, Hypoactive Bowel Sounds Edema: No Labs: CBC, BMP 07/28/17 06:20 07/28/17 06:20 INR, PTT INR 1.23 (0.82-1.09) H 07/28/17 06:45 Problem List - Problems (1) BRIAN (acute kidney injury) Code(s): N17.9 - ACUTE KIDNEY FAILURE, UNSPECIFIED (2) Choledocholithiasis Code(s): K80.50 - CALCULUS OF BILE DUCT W/O CHOLANGITIS OR CHOLECYST W/O OBST (3) Dilated cbd, acquired Code(s): K83.8 - OTHER SPECIFIED DISEASES OF BILIARY TRACT (4) Urethral stricture Code(s): N35.9 - URETHRAL STRICTURE, UNSPECIFIED Qualifiers: Urethral stricture type: other stricture Qualified Code(s): N35.8 - Other urethral stricture (5) A-fib Code(s): I48.91 - UNSPECIFIED ATRIAL FIBRILLATION Qualifiers: Atrial fibrillation type: permanent Qualified Code(s): I48.2 - Chronic atrial fibrillation (6) Cholelithiasis Code(s): K80.20 - CALCULUS OF GALLBLADDER W/O CHOLECYSTITIS W/O OBSTRUCTION Qualifiers: Cholelithiasis location: gallbladder and bile duct Cholecystitis presence: without cholecystitis Biliary obstruction: without biliary obstruction Qualified Code(s): K80.70 - Calculus of gallbladder and bile duct without cholecystitis without obstruction (7) Chronic kidney disease Code(s): N18.9 - CHRONIC KIDNEY DISEASE, UNSPECIFIED Qualifiers: Chronic kidney disease stage: stage 2 (mild) Qualified Code(s): N18.2 - Chronic kidney disease, stage 2 (mild) (8) Diastolic CHF, chronic Code(s): I50.32 - CHRONIC DIASTOLIC (CONGESTIVE) HEART FAILURE (9) History of pacemaker Code(s): Z95.0 - PRESENCE OF CARDIAC PACEMAKER (10) Hyperlipidemia Code(s): E78.5 - HYPERLIPIDEMIA, UNSPECIFIED Qualifiers: Hyperlipidemia type: pure hypercholesterolemia Qualified Code(s): E78.00 - Pure hypercholesterolemia, unspecified (11) Hypertension Code(s): I10 - ESSENTIAL (PRIMARY) HYPERTENSION Qualifiers: Hypertension type: essential hypertension (12) Kidney stones Code(s): N20.0 - CALCULUS OF KIDNEY (13) SSS (sick sinus syndrome) Code(s): I49.5 - SICK SINUS SYNDROME (14) Urinary retention Code(s): R33.9 - RETENTION OF URINE, UNSPECIFIED Assessment/Plan 05/25/2016 Echocardiography performed yesterday revealed overall preserved left ventricular systolic function, bi-atrial dilatation, mild mitral valve regurgitation, mild to moderate tricuspid valve regurgitation 1. Post ERCP with extraction of choledocholithiasis 2. LV diastolic dysfunction 3. CAD non-obstructive CAD angina pectoris 4. Permanent atrial fibrillation on A/C with Coumadin 5. Sick Sinus Syndrome post PPM 6. HTN 7. Hypercholesterolemia 8. Degenerative joint disease 9. Acute on CKD secondary to bladder outlet obstruction improving 10. History of bilateral nephrolithiasis and urethral stricture self catheterization q3d 11. Chronic anemia 12. COPD PLAN: 1. Continue Lopressor 50 tid 2. Surgical consult for lap cholecystectomy off coumadin in meantime, start heparin gtt 3. Bronchodilator as needed, monitor renal recovery, resume Losartan once renal function stabilizes 4. Complete antibiotics course as per ID
[2017-07-28] MEDS ORDERED: HEPARIN NA (PORCINE) 5,000 UNITS/ML 1ML VIAL IVPUSH PRN ×2 (11:50)
[2017-07-28] MEDS ORDERED: HEPARIN - 25,000 UNIT in SODIUM CHLORIDE 495 ML IV SCH (12:00)
--- NOTE | 2017-07-28 12:05 | PN ---
GI Progress Note Subjective: GI Note: No signs of pancreatitis following ERCP and stone extractions. Patient is pain free and tolerating diet. I've discussed the plan with Dr. Rivero and proposed that Mason undergo his cholecystectomy as soon as possible as he is at risk of recurrent CBD stone passage and biliary pancreatitis. The patient is amenable to this. - Objective Vital Signs: Vital Signs Temperature 98.6 F 07/28/17 09:06 Pulse Rate 76 07/28/17 09:06 Respiratory Rate 18 07/28/17 09:06 Blood Pressure 122/79 07/28/17 09:06 O2 Sat by Pulse Oximetry (%) 97 07/28/17 09:00 Laboratory Tests 07/28/17 07/28/17 06:20 06:20 Hgb 10.3 L Total Bilirubin 0.4 D AST 7 L ALT 13 Alkaline Phosphatase 88 Lipase 75 Constitutional: No Distress Labs: CBC, BMP 07/28/17 06:20 07/28/17 06:20 INR, PTT INR 1.23 (0.82-1.09) H 07/28/17 06:45 Problem List - Problems (1) Choledocholithiasis Assessment/Plan: Fortunately no signs of pancreatitis following ERCP. Will consult surgeons for GB surgery. Code(s): K80.50 - CALCULUS OF BILE DUCT W/O CHOLANGITIS OR CHOLECYST W/O OBST (2) Supratherapeutic INR Code(s): R79.1 - ABNORMAL COAGULATION PROFILE
--- NOTE | 2017-07-28 18:14 | PN ---
Progress Note (short form) - Note Progress Note: surgery pt seen and examined. full consult dictated. 87m with chf, afib, ppm, copd, cri, found to have choledocholithiasis incidentally on CT, s/p ercp and stone extraction, off coumadin, with request for cholecystectomy prior to discharge. Pt currently on heparin drip and felt to be optimized by cardiology and medical service. Previous appendectomy and lap inguinal hernia. on exam abd is soft, nt Laboratory Tests 07/28/17 07/28/17 06:20 06:20 WBC 7.3 Hgb 10.3 L Plt Count 166 BUN 28 H Creatinine 2.9 H Total Bilirubin 0.4 D AST 7 L ALT 13 Alkaline Phosphatase 88 Lipase 75 Plan- choledocholithiasis. recommend cholecytectomy to prevent future recurrence, possible cholangitis and pancreatitis. Since patient is considered a reasonable candidate for surgery will make plans for tomorrow. Would stop heparin drip at 4am as earliest poss time is 10am. risks and benefits explained in detail to and pt and these include .
--- NOTE | 2017-07-28 19:43 | CONS ---
DATE OF CONSULTATION: 07/28/2017 REASON FOR CONSULTATION: Cholelithiasis, choledocholithiasis. REQUESTING PHYSICIAN: Enrike Rivero MD BRIEF HISTORY: This is an 87-year-old male with medical history of congestive heart failure, atrial fibrillation, COPD, pacemaker placement, who is currently off Coumadin but on a heparin drip after requiring an ERCP, sphincterotomy, and stone extraction for choledocholithiasis noted incidentally on a CAT scan. The medical team, including Cardiology, felt that the patient was a reasonable candidate for surgery, and that since he was off Coumadin, it would be an ideal time to have a cholecystectomy to prevent future recurrence. Therefore, request was made for surgical evaluation. Patient currently feels well and is pain free. PAST MEDICAL HISTORY: As in the HPI. In addition, he has had urinary tract infections and prostate cancer as well as kidney stones and chronic renal insufficiency. PAST SURGICAL HISTORY: Includes an appendectomy, a laparoscopic inguinal hernia repair, and joint replacement as well as a pacemaker placement. SOCIAL HISTORY: Significant for quitting tobacco. Negative for alcohol. HOME MEDICATIONS: Include Coumadin which he is off of, albuterol, allopurinol, Flomax, and losartan. FAMILY HISTORY: Noncontributory. REVIEW OF SYSTEMS: General: Denies fatigue or malaise. Cardiac: Denies chest pain or palpitations. Respiratory: No shortness of breath or wheeze. Gastrointestinal: As stated in HPI. Genitourinary: Denies dysuria. Musculoskeletal: Admits to arthritic pain. Psychiatric: Denies anxiety, depression, or hearing voices. PHYSICAL EXAMINATION: General: This is an overweight, 87-year-old male in no distress. Vital Signs: He is afebrile. His vital signs are stable. HEENT: His head is normocephalic. His sclerae are anicteric. Neck: Supple. Chest: Clear. Abdomen: Soft, nontender. He has well-healed, surgical laparoscopic scars. He has no obvious hernias. Extremities: Trace edema. LABORATORY DATA: His liver function tests are unremarkable. His white blood cell count is normal. His hemoglobin is 10, and his platelet count, as well as coagulation profile, is unremarkable. IMAGING: He has a CAT scan of his abdomen and pelvis done on July 21 which shows multiple findings, but specifically, stones within the common bile duct as well as the gallbladder. ASSESSMENT: This is an 87-year-old male status post endoscopic retrograde cholangiopancreatography for proven choledocholithiasis, also noted on computerized axial tomography scan. Patient is off Coumadin and been optimized by the medical and cardiology service and is felt to be a reasonable candidate for surgery. Obviously, it would be ideal if the patient did not have a gallbladder as he is at risk of future recurrence as well as cholangitis as well as pancreatitis which could be lethal. Since the patient is a reasonable candidate for surgery, I would agree that it would be reasonable to take out his gallbladder while he is in the hospital and currently off Coumadin. He is on a heparin drip. Based on operating room potential scheduling time, this can likely be done tomorrow but not before 10 a.m. Therefore, would hold the heparin drip at 4:00 in the morning. Will likely give him a dose of antibiotic prophylactic prior to incision. Risks and benefits of surgery have been explained to the patient and his in detail. These are including, but not limited to, the possibility of conversion to open, possibility of injury to viscera or other abdominal organ, the possibility of cystic duct stump leak, the possibility of common bile duct injury, possibility of future hernia, possibility of future obstruction, plus a multitude of medical risks including, but not limited to, cardiac, neurologic, pulmonary, and vascular complications, even . Patient also understands that based on his history of heart failure, kidney disease, pacemaker, and atrial fibrillation and advanced age, he is at increased risk for these complications and especially . The patient understands these risks and is agreeable to surgery. The patient also has to be kept n.p.o. after midnight. DO RUDY SANCHEZ/[id number]
--- NOTE | 2017-07-28 21:05 | PN ---
Progress Note (short form) - Note Progress Note: Renal follow up for BRIAN on CKD Pt seen and examined at the bedside no acute complaints making urine no CP, sob, abd pain, N/V/D Vital Signs Temperature 98 F 07/28/17 19:02 Pulse Rate 65 07/28/17 19:02 Respiratory Rate 18 07/28/17 20:29 Blood Pressure 111/54 07/28/17 19:02 O2 Sat by Pulse Oximetry (%) 97 07/28/17 20:29 Intake & Output 07/25/17 07/26/17 07/27/17 07/28/17 23:59 23:59 23:59 23:59 Intake Total 2065 2125 1450 1030 Output Total 1600 1300 700 Balance 2065 525 150 330 NAD awake and alert RRR CTA mild bladder distension No LE edema CBC, BMP 07/28/17 06:20 07/28/17 06:20 Current Medications Acetaminophen (Tylenol -) 650 mg PO Q6H PRN PRN Reason: PAIN LEVEL 1-5 Last Admin: 07/25/17 18:35 Dose: 650 mg Albuterol Sulfate (Ventolin Hfa Inhaler -) 1 puff IH Q6H PRN PRN Reason: SHORTNESS OF BREATH Allopurinol (Zyloprim -) 100 mg PO DAILY [facility] Last Admin: 07/28/17 09:14 Dose: 100 mg Ascorbic Acid (Vitamin C -) 500 mg PO DAILY [facility] Last Admin: 07/28/17 09:14 Dose: 500 mg Cyclobenzaprine HCl (Flexeril -) 10 mg PO TID [facility] Last Admin: 07/28/17 13:33 Dose: Not Given Docusate Sodium (Colace -) 100 mg PO BID [facility] Last Admin: 07/28/17 09:14 Dose: 100 mg Ferrous Sulfate (Feosol -) 325 mg PO DAILY [facility] Last Admin: 07/28/17 09:14 Dose: 325 mg Heparin Sodium (Porcine) (Heparin -) 1,000 unit IVPUSH PRN PRN PRN Reason: Heparin Heparin Sodium (Porcine) (Heparin -) 5,000 unit IVPUSH PRN PRN PRN Reason: Heparin Heparin Sodium (Porcine) 25, (000 unit/ Sodium Chloride) 500 mls @ 20 mls/hr IV TITR [facility]; Protocol Stop: 07/29/17 04:00 Last Admin: 07/28/17 14:05 Dose: 1,000 unit/hr, 20 mls/hr Lactobacillus Acidophilus (Bacid -) 1 tab PO DAILY [facility] Last Admin: 07/28/17 09:14 Dose: 1 tab Metoprolol Tartrate (Lopressor -) 50 mg PO TID [facility] Last Admin: 07/28/17 13:41 Dose: 50 mg Breo 200/25 Mcg Inhaler - Patient Own Med 1 each IH DAILY [facility] Last Admin: 07/28/17 09:15 Dose: 1 each Nasacort Nasal [place]berg (- Patient Own Med) 1 each NR DAILY [facility] Last Admin: 07/28/17 09:15 Dose: 1 each Multivitamin Tablet (- Patient Own Med) 1 each PO DAILY [facility] Last Admin: 07/28/17 09:15 Dose: 1 each Coenzyme Q10 Capsule (- Patient Own Med) 1 each PO DAILY [facility] Last Admin: 07/28/17 09:15 Dose: 1 each Methenamine Hippurate 1 Gm Tab - Patient Own Med 1 each PO BIDWM [facility] Last Admin: 07/28/17 17:11 Dose: 1 each Vitamin D 2000 Units Capsule - Patient Own Med 1 each PO DAILY [facility] Last Admin: 07/28/17 09:15 Dose: 1 each Pyridoxine HCl (Vitamin B6 -) 50 mg PO DAILY [facility] Last Admin: 07/28/17 09:15 Dose: 50 mg Tamsulosin HCl (Flomax -) 0.4 mg PO 0830 [facility] Last Admin: 07/28/17 08:04 Dose: 0.4 mg Thiamine HCl (Vitamin B1 -) 100 mg PO DAILY [facility] Last Admin: 07/28/17 09:14 Dose: 100 mg Vitamin E (Vitamin E -) 400 unit PO DAILY [facility] Last Admin: 07/28/17 09:16 Dose: 400 unit 87 year old gentleman with PMhx of CKD stage 4, Prostate Ca s/p radiation Tx, Urethral strictures presented with dysuria and weakness and found to have BRIAN. #BRIAN secondary to bladder outlet obstruction (baseline Cr 2.6) #Urethral strictures #UTI Renal function stable continue catherization as per vascular GI and surgical follow up for management of cholelithiasis give Mg sulfate IV x 1 Jacques Esquivel DO
[2017-07-29] MEDS: CYCLOBENZAPRINE HCL 10 MG TABLET (FP) PO SCH ×3 (06:17→21:08)
[2017-07-29] MEDS: METOPROLOL TARTRATE 50 MG TABLET (FP) PO SCH ×3 (06:17→21:08)
[2017-07-29 07:24] LABS: BASO % 0.7 % (0-2.0); HEMATOCRIT 28.8 % (35.4-49); HEMOGLOBIN 9.8 GM/dL (11.7-16.9); LYMPH % 19.3 % (8-40); MCH 29.2 pg (25.7-33.7); MCHC 34.1 g/dl (32.0-35.9); MEAN CELL VOLUME 85.5 fl (80-96); MEAN PLT VOLUME 9.1 fl (7.5-11.1); MONO % 17.5 % (3.8-10.2); NEUT % 61.5 % (42.8-82.8); PLATELET COUNT 140 K/MM3 (134-434); RBC 3.37 M/mm3 (4.00-5.60); RDW 15.2 % (11.9-15.9); WHITE BLOOD COUNT 6.5 K/mm3 (4.0-10.0)
[2017-07-29] MEDS: TAMSULOSIN HCL 0.4 MG CAP.ER.24H (FP) PO SCH (08:32)
[2017-07-29] MEDS: METHENAMINE HIPPURATE 1 GM PO SCH (08:32)
[2017-07-29 08:37] LABS: INR 1.17 (0.82-1.09); PROTHROMBIN TIME (PATIENT) 13.2 SEC (9.7-13.0)
[2017-07-29 08:40] LABS: ACTIVATED PTT 32.7 SECONDS (26.9-34.4)
[2017-07-29 09:01] LABS: ANION GAP 9 (8-16); BLOOD UREA NITROGEN 25 mg/dL (7-18); CALCIUM 8.5 mg/dL (8.5-10.1); CHLORIDE 110 mmol/L (98-107); CO2 21 mmol/L (21-32); CREATININE 2.7 mg/dL (0.7-1.3); GLUCOSE,RANDOM 89 mg/dL (74-106); MAGNESIUM 2.1 mg/dL (1.8-2.4); PHOSPHOROUS 3.4 mg/dL (2.5-4.9); POTASSIUM 3.9 mmol/L (3.5-5.1); SODIUM 140 mmol/L (136-145)
[2017-07-29] MEDS ORDERED: ONDANSETRON 4 MG/2 ML VIAL IVPUSH PRN ×2 (09:18→11:16)
[2017-07-29] MEDS ORDERED: ROCURONIUM BROMIDE 50 MG/5 ML VIAL ONE (09:25)
[2017-07-29] MEDS ORDERED: PROPOFOL 20 ML ONE (09:27)
[2017-07-29] MEDS ORDERED: morphine CARPU-JECT 4 MG/1 ML DISP.SYRIN IVPB PRN (09:52)
[2017-07-29] MEDS ORDERED: oxyCODONE HCL 5 MG TABLET PO PRN (09:52)
--- NOTE | 2017-07-29 09:56 | OP ---
Operative Note - Note: Operative Date: 07/29/17 Pre-Operative Diagnosis: cholelithiasis, choledocholithiasis Operation: laparoscopic cholecystectomy, lavage Findings: pale gb Post-Operative Diagnosis: Same as Pre-op Surgeon: Gt Ledesma Anesthesiologist/THEATRICAL PERFORMER: Amira Castro MD Specimens Removed: gb Estimated Blood Loss (mls): 10 Operative Report Dictated: Yes
[2017-07-29] MEDS ORDERED: ceFAZolin SODIUM 1 GM VIAL IVPB ONE (10:00)
[2017-07-29] MEDS ORDERED: ENOXAPARIN NA (PORCINE) 40 MG/0.4 ML DISP.SYRIN SQ SCH (10:00)
[2017-07-29] MEDS: BREO IH SCH (10:08)
[2017-07-29] MEDS: FERROUS SO4 325 MG TABLET (FP) PO SCH (10:08)
[2017-07-29] MEDS: LACTOBACILLUS ACIDOPHILUS 1 TABLET PO SCH (10:08)
[2017-07-29] MEDS: NASACORT NR SCH (10:08)
[2017-07-29] MEDS: DOCUSATE SODIUM 100 MG CAPSULE (FP) PO SCH ×2 (10:08→21:08)
[2017-07-29] MEDS: MULTIVITAMIN PO SCH (10:08)
[2017-07-29] MEDS: COENZYME Q10 PO SCH (10:08)
[2017-07-29] MEDS: PYRIDOXINE HCL (B-6) 50 MG TABLET (FP) PO SCH (10:09)
[2017-07-29] MEDS: THIAMINE HCL 100 MG TABLET (FP) PO SCH (10:09)
[2017-07-29] MEDS: ASCORBIC ACID 500 MG TABLET (FP) PO SCH (10:09)
[2017-07-29] MEDS: PANTOPRAZOLE SODIUM 40 MG VIAL IVPUSH SCH (10:09)
[2017-07-29] MEDS: ALLOPURINOL 100 MG TABLET (FP) PO SCH (10:09)
[2017-07-29] MEDS: VITAMIN E 400 INTERNATIONAL-UNITS CAPSULE (FP) PO SCH (10:09)
[2017-07-29] MEDS: VITAMIN D 2000 UNIT PO SCH (10:09)
[2017-07-29] MEDS: SODIUM CHLORIDE 1,000 ML IV SCH (10:09)
[2017-07-29 10:28] LABS: PLATELET ESTIMATE NORMAL; TEAR DROP CELLS 1+
[2017-07-29] MEDS ORDERED: NEOSTIGMINE METHYLSULFATE 0.5 MG/ML - 10 ML MDV ONE (10:41)
[2017-07-29] MEDS ORDERED: ACETAMINOPHEN 325 MG TABLET (FP) PO PRN (11:16)
[2017-07-29] MEDS ORDERED: ALBUTEROL SO4 18 GM HFA INHALER IH PRN (11:16)
--- NOTE | 2017-07-29 11:34 | OP ---
DATE OF OPERATION: 07/29/2017 PREOPERATIVE DIAGNOSES: Cholelithiasis, choledocholithiasis. POSTOPERATIVE DIAGNOSES: Cholelithiasis, choledocholithiasis. PROCEDURE: Laparoscopic cholecystectomy, lavage. SURGEON: Gt Ledesma D.O. WOOD BUCKER: None. ANESTHESIOLOGIST: Amira Castro M.D. (general) SPECIMEN: Gallbladder. INTRAOPERATIVE FINDINGS: A pale, non-thickened gallbladder. BLOOD LOSS: Minimal. DRAINS: None. COMPLICATIONS: None. DISPOSITION: Recovery room in stable condition. BRIEF HISTORY: This is an 87-year-old male who presented to [facility] with incidental findings of choledocholithiasis on CAT scan. He underwent an ERCP with sphincterotomy and stone extraction. Request was made for cholecystectomy. DESCRIPTION OF PROCEDURE: The patient was placed in supine position. After general anesthesia was initiated, the abdomen was prepped and draped in sterile fashion , and Ancef was given prophylactically. Next, a transverse incision was made infraumbilical with scalpel used to go through skin and subcutaneous tissue. The fascia was then lifted with Peace clamp, Veress needle was inserted, and pneumoperitoneum was created. Next, an 11-mm trocar was placed, followed by insertion of a 10-mm 0-degree laparoscope. An addition 11-mm trocar was placed subxiphoid, and two 5-mm trocars were placed in the right upper quadrant. At this point, attention was turned toward the gallbladder. It was pale, mildly distended, and non-thickened. At this point, the fundus was lifted cephalad. The infundibulum retracted laterally. The peritoneal peel was dissected down, exposing the cystic duct and cystic artery. Both were clipped and divided. The gallbladder was then liberated from the liver bed using electrocautery. Hemostasis was maintained using electrocautery. At this point, the gallbladder was removed through the infraumbilical trocar site and sent to Pathology marked as specimen. A limited lavage was done, and all return was clear. Trocars were then removed under direct visualization and no bleeding was noted and pneumoperitoneum was released. At this point, the fascia of the infraumbilical trocar site was then closed with multiple interrupted 0 Vicryl sutures, and the 4 skin incisions were closed with Biosyn. Dermabond dressing was placed. DO RUDY SANCHEZ/[id number] MTDSumit
--- NOTE | 2017-07-29 15:16 | PN ---
GI Progress Note Subjective: GI NOte: Dr. Ledesma's surgical intervention is appreciated. Looks remarkably well postop. - Objective Vital Signs: Vital Signs Temperature 97.9 F 07/29/17 14:53 Pulse Rate 77 07/29/17 14:53 Respiratory Rate 20 07/29/17 14:53 Blood Pressure 141/73 07/29/17 14:53 O2 Sat by Pulse Oximetry (%) 98 07/29/17 12:30 Constitutional: Calm Gastrointestinal Inspection: Yes: Scars (laparoscopic incisions healing) ...Auscultate: Yes: Hypoactive Bowel Sounds ...Palpate: Yes: Tenderness (minimal at incisions) Labs: CBC, BMP 07/29/17 06:00 07/29/17 06:00 INR, PTT INR 1.17 (0.82-1.09) H 07/29/17 06:40 Problem List - Problems (1) Choledocholithiasis Assessment/Plan: Fortunately has tolerated lap choly well removing the risk of biliary pancreatitis and recurrent CBD stone passage. Code(s): K80.50 - CALCULUS OF BILE DUCT W/O CHOLANGITIS OR CHOLECYST W/O OBST (2) Supratherapeutic INR Code(s): R79.1 - ABNORMAL COAGULATION PROFILE
[2017-07-29] MEDS ORDERED: PT OWN MED DRAWER 7, Y5N ONE (17:27)
--- NOTE | 2017-07-29 17:31 | PN ---
Progress Note (short form) - Note Progress Note: Renal follow up for BRIAN on CKD Pt seen and examined at the bedside s/p laparoscopic cholecystectomy today no acute complaints making urine via catherization Vital Signs Temperature 97.9 F 07/29/17 14:53 Pulse Rate 77 07/29/17 14:53 Respiratory Rate 20 07/29/17 14:53 Blood Pressure 141/73 07/29/17 14:53 O2 Sat by Pulse Oximetry (%) 98 07/29/17 12:30 Intake & Output 07/26/17 07/27/17 07/28/17 07/29/17 23:59 23:59 23:59 23:59 Intake Total 2125 1450 1230 880 Output Total 1600 1300 1075 1060 Balance 525 150 155 -180 NAD awake and alert RRR CTA mild bladder distension No LE edema CBC, BMP 07/29/17 06:00 07/29/17 06:00 Current Medications Acetaminophen (Tylenol -) 650 mg PO Q6H PRN PRN Reason: PAIN LEVEL 1-5 Albuterol Sulfate (Ventolin Hfa Inhaler -) 1 puff IH Q6H PRN PRN Reason: SHORTNESS OF BREATH Allopurinol (Zyloprim -) 100 mg PO DAILY [facility] Ascorbic Acid (Vitamin C -) 500 mg PO DAILY [facility] Cyclobenzaprine HCl (Flexeril -) 10 mg PO TID [facility] Last Admin: 07/29/17 14:17 Dose: 10 mg Docusate Sodium (Colace -) 100 mg PO BID [facility] Enoxaparin Sodium (Lovenox -) 40 mg SQ DAILY [facility] Last Admin: 07/29/17 10:08 Dose: Not Given Fentanyl (Sublimaze Injection -) 50 mcg IVPUSH [id number] PRN PRN Reason: PAIN-PACU ORDER X 4 DOSES ONLY Ferrous Sulfate (Feosol -) 325 mg PO DAILY [facility] Sodium Chloride (Normal Saline -) 1,000 mls @ 100 mls/hr IV ASDIR [facility] Last Admin: 07/29/17 10:09 Dose: Not Given Lactobacillus Acidophilus (Bacid -) 1 tab PO DAILY [facility] Metoprolol Tartrate (Lopressor -) 50 mg PO TID [facility] Last Admin: 07/29/17 14:17 Dose: 50 mg Morphine Sulfate (Morphine Injection -) 4 mg IVPB Q3H PRN PRN Reason: PAIN LEVEL 7 - 10 Non-Formulary Medication (Non-Formulary Med) 1 each IH DAILY [facility] Non-Formulary Medication (Non-Formulary Med) 1 each NR DAILY [facility] Non-Formulary Medication (Non-Formulary Med) 1 each PO DAILY [facility] Non-Formulary Medication (Non-Formulary Med) 1 each PO DAILY [facility] Non-Formulary Medication (Non-Formulary Med) 1 each PO BIDWM [facility] Non-Formulary Medication (Non-Formulary Med) 1 each PO DAILY [facility] Ondansetron HCl (Zofran Injection) 4 mg IVPUSH Q6H PRN PRN Reason: NAUSEA AND/OR VOMITING Oxycodone HCl (Roxicodone -) 7.5 mg PO Q4H PRN PRN Reason: PAIN LEVEL 6-10 Pantoprazole Sodium (Protonix Iv) 40 mg IVPUSH DAILY [facility] Last Admin: 07/29/17 10:09 Dose: Not Given Pyridoxine HCl (Vitamin B6 -) 50 mg PO DAILY [facility] Tamsulosin HCl (Flomax -) 0.4 mg PO 0830 [facility] Thiamine HCl (Vitamin B1 -) 100 mg PO DAILY [facility] Vitamin E (Vitamin E -) 400 unit PO DAILY [facility] 87 year old gentleman with PMhx of CKD stage 4, Prostate Ca s/p radiation Tx, Urethral strictures presented with dysuria and weakness and found to have BRIAN. #BRIAN secondary to bladder outlet obstruction (baseline Cr 2.6) #Urethral strictures #UTI Renal function stable continue catherization as per vascular s/p laparoscopic cholecystectomy Trend BUN/Cr discharge planning as per primary Jacques Esquivel DO
[2017-07-29] MEDS: NON-FORMULARY MED PO SCH (17:33)
--- NOTE | 2017-07-29 18:51 | PN ---
Progress Note, Physician Chief Complaint: Events noted Patient was seen in PACU post lap cholecystectomy History of Present Illness: Patient was seen and examined. Chart was reviewed Post op in PACU Hemodynamicall stable - Current Medication List Current Medications: Active Medications Acetaminophen (Tylenol -) 650 mg PO Q6H PRN PRN Reason: PAIN LEVEL 1-5 Albuterol Sulfate (Ventolin Hfa Inhaler -) 1 puff IH Q6H PRN PRN Reason: SHORTNESS OF BREATH Allopurinol (Zyloprim -) 100 mg PO DAILY [facility] Ascorbic Acid (Vitamin C -) 500 mg PO DAILY [facility] Cyclobenzaprine HCl (Flexeril -) 10 mg PO TID [facility] Last Admin: 07/29/17 14:17 Dose: 10 mg Docusate Sodium (Colace -) 100 mg PO BID [facility] Enoxaparin Sodium (Lovenox -) 40 mg SQ DAILY [facility] Last Admin: 07/29/17 10:08 Dose: Not Given Fentanyl (Sublimaze Injection -) 50 mcg IVPUSH [id number] PRN PRN Reason: PAIN-PACU ORDER X 4 DOSES ONLY Ferrous Sulfate (Feosol -) 325 mg PO DAILY [facility] Sodium Chloride (Normal Saline -) 1,000 mls @ 100 mls/hr IV ASDIR [facility] Last Admin: 07/29/17 10:09 Dose: Not Given Lactobacillus Acidophilus (Bacid -) 1 tab PO DAILY [facility] Metoprolol Tartrate (Lopressor -) 50 mg PO TID [facility] Last Admin: 07/29/17 14:17 Dose: 50 mg Morphine Sulfate (Morphine Injection -) 4 mg IVPB Q3H PRN PRN Reason: PAIN LEVEL 7 - 10 Non-Formulary Medication (Non-Formulary Med) 1 each IH DAILY [facility] Non-Formulary Medication (Non-Formulary Med) 1 each NR DAILY [facility] Non-Formulary Medication (Non-Formulary Med) 1 each PO DAILY [facility] Non-Formulary Medication (Non-Formulary Med) 1 each PO DAILY [facility] Non-Formulary Medication (Non-Formulary Med) 1 each PO BIDWM [facility] Last Admin: 07/29/17 17:33 Dose: 1 each Non-Formulary Medication (Non-Formulary Med) 1 each PO DAILY [facility] Ondansetron HCl (Zofran Injection) 4 mg IVPUSH Q6H PRN PRN Reason: NAUSEA AND/OR VOMITING Oxycodone HCl (Roxicodone -) 7.5 mg PO Q4H PRN PRN Reason: PAIN LEVEL 6-10 Pantoprazole Sodium (Protonix Iv) 40 mg IVPUSH DAILY [facility] Last Admin: 07/29/17 10:09 Dose: Not Given Pyridoxine HCl (Vitamin B6 -) 50 mg PO DAILY [facility] Tamsulosin HCl (Flomax -) 0.4 mg PO 0830 [facility] Thiamine HCl (Vitamin B1 -) 100 mg PO DAILY [facility] Vitamin E (Vitamin E -) 400 unit PO DAILY [facility] - Objective Vital Signs: Vital Signs Temperature 97.9 F 07/29/17 14:53 Pulse Rate 77 07/29/17 14:53 Respiratory Rate 20 07/29/17 14:53 Blood Pressure 141/73 07/29/17 14:53 O2 Sat by Pulse Oximetry (%) 98 07/29/17 12:30 Neck: Yes: Supple Cardiovascular: Yes: Regular Rate and Rhythm, S1, S2 Respiratory: Yes: CTA Bilaterally Gastrointestinal: Yes: Other (Post op) Edema: No Labs: CBC, BMP 07/29/17 06:00 07/29/17 06:00 INR, PTT INR 1.17 (0.82-1.09) H 07/29/17 06:40 Problem List - Problems (1) BRIAN (acute kidney injury) Code(s): N17.9 - ACUTE KIDNEY FAILURE, UNSPECIFIED (2) Choledocholithiasis Code(s): K80.50 - CALCULUS OF BILE DUCT W/O CHOLANGITIS OR CHOLECYST W/O OBST (3) Urinary tract infection Code(s): N39.0 - URINARY TRACT INFECTION, SITE NOT SPECIFIED Qualifiers: Urinary tract infection type: site unspecified Hematuria presence: with hematuria Qualified Code(s): N39.0 - Urinary tract infection, site not specified; R31.9 - Hematuria, unspecified (4) A-fib Code(s): I48.91 - UNSPECIFIED ATRIAL FIBRILLATION Qualifiers: Atrial fibrillation type: permanent Qualified Code(s): I48.2 - Chronic atrial fibrillation (5) Chronic kidney disease Code(s): N18.9 - CHRONIC KIDNEY DISEASE, UNSPECIFIED Qualifiers: Chronic kidney disease stage: stage 2 (mild) Qualified Code(s): N18.2 - Chronic kidney disease, stage 2 (mild) (6) Congestive heart failure with LV diastolic dysfunction, NYHA class 2 Code(s): I50.30 - UNSPECIFIED DIASTOLIC (CONGESTIVE) HEART FAILURE (7) History of pacemaker Code(s): Z95.0 - PRESENCE OF CARDIAC PACEMAKER (8) Hyperlipidemia Code(s): E78.5 - HYPERLIPIDEMIA, UNSPECIFIED Qualifiers: Hyperlipidemia type: pure hypercholesterolemia Qualified Code(s): E78.00 - Pure hypercholesterolemia, unspecified (9) Hypertension Code(s): I10 - ESSENTIAL (PRIMARY) HYPERTENSION Qualifiers: Hypertension type: essential hypertension (10) Kidney stones Code(s): N20.0 - CALCULUS OF KIDNEY (11) SSS (sick sinus syndrome) Code(s): I49.5 - SICK SINUS SYNDROME Assessment/Plan 1. Post ERCP for suspected choledocholithiasis s/p stone extraction s/p lap cholecystectomy 2. LV diastolic dysfunction 3. CAD non-obstructive CAD angina pectoris 4. Permanent atrial fibrillation on A/C with Coumadin 5. Sick Sinus Syndrome post PPM 6. HTN 7. Hypercholesterolemia 8. Degenerative joint disease 9. Acute on CKD secondary to bladder outlet obstruction improving 10. History of bilateral nephrolithiasis and urethral stricture 11. Chronic anemia 12. COPD PLAN: 1. Continue current medical therapy to be restarted when cleared. Post op care 2. Continue Lopressor 50 tid when feasible 3. Restart Coumadin when cleared by GI 4. Bronchodilator as needed, monitor renal recovery, resume Losartan once renal function stabilizes Further plans are to follow Aleksey Marquez MD
--- NOTE | 2017-07-29 19:03 | PN ---
Progress Note, Physician History of Present Illness: Pt is s/p cholecystectomy, feeling well. Pt w/o fever, chills, SOB, CP, abd pain. Pt w/o bladder spasm, tolerating Flexeril. - Current Medication List Current Medications: Active Medications Acetaminophen (Tylenol -) 650 mg PO Q6H PRN PRN Reason: PAIN LEVEL 1-5 Albuterol Sulfate (Ventolin Hfa Inhaler -) 1 puff IH Q6H PRN PRN Reason: SHORTNESS OF BREATH Allopurinol (Zyloprim -) 100 mg PO DAILY [facility] Ascorbic Acid (Vitamin C -) 500 mg PO DAILY [facility] Cyclobenzaprine HCl (Flexeril -) 10 mg PO TID [facility] Last Admin: 07/29/17 14:17 Dose: 10 mg Docusate Sodium (Colace -) 100 mg PO BID [facility] Enoxaparin Sodium (Lovenox -) 40 mg SQ DAILY [facility] Last Admin: 07/29/17 10:08 Dose: Not Given Fentanyl (Sublimaze Injection -) 50 mcg IVPUSH [id number] PRN PRN Reason: PAIN-PACU ORDER X 4 DOSES ONLY Ferrous Sulfate (Feosol -) 325 mg PO DAILY [facility] Sodium Chloride (Normal Saline -) 1,000 mls @ 100 mls/hr IV ASDIR [facility] Last Admin: 07/29/17 10:09 Dose: Not Given Lactobacillus Acidophilus (Bacid -) 1 tab PO DAILY [facility] Metoprolol Tartrate (Lopressor -) 50 mg PO TID [facility] Last Admin: 07/29/17 14:17 Dose: 50 mg Morphine Sulfate (Morphine Injection -) 4 mg IVPB Q3H PRN PRN Reason: PAIN LEVEL 7 - 10 Non-Formulary Medication (Non-Formulary Med) 1 each IH DAILY [facility] Non-Formulary Medication (Non-Formulary Med) 1 each NR DAILY [facility] Non-Formulary Medication (Non-Formulary Med) 1 each PO DAILY [facility] Non-Formulary Medication (Non-Formulary Med) 1 each PO DAILY [facility] Non-Formulary Medication (Non-Formulary Med) 1 each PO BIDWM [facility] Last Admin: 07/29/17 17:33 Dose: 1 each Non-Formulary Medication (Non-Formulary Med) 1 each PO DAILY [facility] Ondansetron HCl (Zofran Injection) 4 mg IVPUSH Q6H PRN PRN Reason: NAUSEA AND/OR VOMITING Oxycodone HCl (Roxicodone -) 7.5 mg PO Q4H PRN PRN Reason: PAIN LEVEL 6-10 Pantoprazole Sodium (Protonix Iv) 40 mg IVPUSH DAILY [facility] Last Admin: 07/29/17 10:09 Dose: Not Given Pyridoxine HCl (Vitamin B6 -) 50 mg PO DAILY [facility] Tamsulosin HCl (Flomax -) 0.4 mg PO 0830 [facility] Thiamine HCl (Vitamin B1 -) 100 mg PO DAILY [facility] Vitamin E (Vitamin E -) 400 unit PO DAILY [facility] - Objective Vital Signs: Vital Signs Temperature 97.9 F 07/29/17 14:53 Pulse Rate 77 07/29/17 14:53 Respiratory Rate 20 07/29/17 14:53 Blood Pressure 141/73 07/29/17 14:53 O2 Sat by Pulse Oximetry (%) 98 07/29/17 12:30 Constitutional: Yes: No Distress, Calm Cardiovascular: Yes: Regular Rate and Rhythm, S1, S2 Respiratory: Yes: Regular, CTA Bilaterally. No: Rales Gastrointestinal: Yes: Normal Bowel Sounds, Soft. No: Tenderness Edema: No Neurological: Yes: Alert, Oriented Labs: CBC, BMP 07/29/17 06:00 07/29/17 06:00 INR, PTT INR 1.17 (0.82-1.09) H 07/29/17 06:40 Problem List - Problems (1) BRIAN (acute kidney injury) Code(s): N17.9 - ACUTE KIDNEY FAILURE, UNSPECIFIED (2) Urinary tract infection Code(s): N39.0 - URINARY TRACT INFECTION, SITE NOT SPECIFIED Qualifiers: Urinary tract infection type: site unspecified Hematuria presence: with hematuria Qualified Code(s): N39.0 - Urinary tract infection, site not specified; R31.9 - Hematuria, unspecified (3) Urethral stricture Code(s): N35.9 - URETHRAL STRICTURE, UNSPECIFIED Qualifiers: Urethral stricture type: other stricture Qualified Code(s): N35.8 - Other urethral stricture (4) A-fib Code(s): I48.91 - UNSPECIFIED ATRIAL FIBRILLATION Qualifiers: Atrial fibrillation type: permanent Qualified Code(s): I48.2 - Chronic atrial fibrillation (5) Prostate CA Code(s): C61 - MALIGNANT NEOPLASM OF PROSTATE (6) CHF (congestive heart failure) Code(s): I50.9 - HEART FAILURE, UNSPECIFIED (7) COPD exacerbation Code(s): J44.1 - CHRONIC OBSTRUCTIVE PULMONARY DISEASE W (ACUTE) EXACERBATION (8) Choledocholithiasis Code(s): K80.50 - CALCULUS OF BILE DUCT W/O CHOLANGITIS OR CHOLECYST W/O OBST (9) Dilated cbd, acquired Code(s): K83.8 - OTHER SPECIFIED DISEASES OF BILIARY TRACT (10) Bladder spasms Code(s): N32.89 - OTHER SPECIFIED DISORDERS OF BLADDER (11) Bladder spasms Code(s): N32.89 - OTHER SPECIFIED DISORDERS OF BLADDER (12) Hematuria Code(s): R31.9 - HEMATURIA, UNSPECIFIED (13) Hypomagnesemia Code(s): E83.42 - HYPOMAGNESEMIA (14) S/P cholecystectomy Code(s): Z90.49 - ACQUIRED ABSENCE OF OTHER SPECIFIED PARTS OF DIGESTIVE TRACT Assessment/Plan ID, Renal, , GI, Cardio consults and f/u are appreciated. OOBTC Off AC, s/p ERCP. S/p cholecystectomy today. Pt with urinary retention, requires self catheterization. Bladder spasm, resolved on Flexeril- to f/u with ( to recall) UCX is negative. Creatinine is improving -on IVF. AM labs. Case was d/w pt's nurse.
[2017-07-30] MEDS ORDERED: morphine SULFATE 4 MG/ML VIAL IVPB PRN (02:40)
[2017-07-30] MEDS: METOPROLOL TARTRATE 50 MG TABLET (FP) PO SCH ×2 (06:08→14:01)
[2017-07-30] MEDS: CYCLOBENZAPRINE HCL 10 MG TABLET (FP) PO SCH ×2 (06:09→14:01)
[2017-07-30 06:38] VITALS: TEMP 97.8
[2017-07-30 07:52] LABS: HEMATOCRIT 28.2 % (35.4-49); HEMOGLOBIN 9.7 GM/dL (11.7-16.9); MCH 29.3 pg (25.7-33.7); MCHC 34.2 g/dl (32.0-35.9); MEAN CELL VOLUME 85.5 fl (80-96); MEAN PLT VOLUME 9.3 fl (7.5-11.1); PLATELET COUNT 153 K/MM3 (134-434); RDW 15.4 % (11.9-15.9); WHITE BLOOD COUNT 9.2 K/mm3 (4.0-10.0)
[2017-07-30] MEDS ORDERED: PT OWN MED DRAWER 7, Y5N ONE (08:23)
[2017-07-30] MEDS: NON-FORMULARY MED PO SCH (08:25)
[2017-07-30] MEDS ORDERED: TAMSULOSIN HCL 0.4 MG CAP.ER.24H (FP) PO SCH (08:30)
--- NOTE | 2017-07-30 09:34 | PN ---
Progress Note, Physician History of Present Illness: Pt is s/p cholecystectomy, feeling well. Pt w/o fever, chills, SOB, CP, abd pain. Pt w/o bladder spasm, tolerating Flexeril. - Current Medication List Current Medications: Active Medications Acetaminophen (Tylenol -) 650 mg PO Q6H PRN PRN Reason: PAIN LEVEL 1-5 Albuterol Sulfate (Ventolin Hfa Inhaler -) 1 puff IH Q6H PRN PRN Reason: SHORTNESS OF BREATH Allopurinol (Zyloprim -) 100 mg PO DAILY [facility] Ascorbic Acid (Vitamin C -) 500 mg PO DAILY [facility] Cyclobenzaprine HCl (Flexeril -) 10 mg PO TID [facility] Last Admin: 07/30/17 06:09 Dose: 10 mg Docusate Sodium (Colace -) 100 mg PO BID [facility] Last Admin: 07/29/17 21:08 Dose: 100 mg Enoxaparin Sodium (Lovenox -) 40 mg SQ DAILY [facility] Last Admin: 07/29/17 10:08 Dose: Not Given Ferrous Sulfate (Feosol -) 325 mg PO DAILY [facility] Sodium Chloride (Normal Saline -) 1,000 mls @ 100 mls/hr IV ASDIR [facility] Last Admin: 07/29/17 10:09 Dose: Not Given Lactobacillus Acidophilus (Bacid -) 1 tab PO DAILY [facility] Metoprolol Tartrate (Lopressor -) 50 mg PO TID [facility] Last Admin: 07/30/17 06:08 Dose: 50 mg Morphine Sulfate (Morphine Sulfate) 4 mg IVPB Q3H PRN PRN Reason: PAIN LEVEL 7 - 10 Non-Formulary Medication (Non-Formulary Med) 1 each IH DAILY [facility] Non-Formulary Medication (Non-Formulary Med) 1 each NR DAILY [facility] Non-Formulary Medication (Non-Formulary Med) 1 each PO DAILY [facility] Non-Formulary Medication (Non-Formulary Med) 1 each PO DAILY [facility] Non-Formulary Medication (Non-Formulary Med) 1 each PO BIDWM [facility] Last Admin: 07/30/17 08:25 Dose: 1 each Non-Formulary Medication (Non-Formulary Med) 1 each PO DAILY [facility] Ondansetron HCl (Zofran Injection) 4 mg IVPUSH Q6H PRN PRN Reason: NAUSEA AND/OR VOMITING Oxycodone HCl (Roxicodone -) 7.5 mg PO Q4H PRN PRN Reason: PAIN LEVEL 6-10 Pantoprazole Sodium (Protonix Iv) 40 mg IVPUSH DAILY [facility] Last Admin: 07/29/17 10:09 Dose: Not Given Pyridoxine HCl (Vitamin B6 -) 50 mg PO DAILY [facility] Tamsulosin HCl (Flomax -) 0.4 mg PO 0830 [facility] Last Admin: 07/30/17 08:25 Dose: 0.4 mg Thiamine HCl (Vitamin B1 -) 100 mg PO DAILY [facility] Vitamin E (Vitamin E -) 400 unit PO DAILY [facility] - Objective Vital Signs: Vital Signs Temperature 97.8 F 07/30/17 06:00 Pulse Rate 81 07/30/17 06:00 Respiratory Rate 20 07/30/17 06:00 Blood Pressure 118/68 07/30/17 06:00 O2 Sat by Pulse Oximetry (%) 98 07/29/17 20:24 Constitutional: Yes: No Distress, Calm Cardiovascular: Yes: Regular Rate and Rhythm, S1, S2 Respiratory: Yes: Regular, CTA Bilaterally. No: Rales Gastrointestinal: Yes: Normal Bowel Sounds, Soft, Other (minimal discomfort) Edema: No Neurological: Yes: Alert, Oriented Labs: CBC, BMP 07/30/17 06:30 INR, PTT INR 1.17 (0.82-1.09) H 07/29/17 06:40 Problem List - Problems (1) BRIAN (acute kidney injury) Code(s): N17.9 - ACUTE KIDNEY FAILURE, UNSPECIFIED (2) Urinary tract infection Code(s): N39.0 - URINARY TRACT INFECTION, SITE NOT SPECIFIED Qualifiers: Urinary tract infection type: site unspecified Hematuria presence: with hematuria Qualified Code(s): N39.0 - Urinary tract infection, site not specified; R31.9 - Hematuria, unspecified (3) Urethral stricture Code(s): N35.9 - URETHRAL STRICTURE, UNSPECIFIED Qualifiers: Urethral stricture type: other stricture Qualified Code(s): N35.8 - Other urethral stricture (4) A-fib Code(s): I48.91 - UNSPECIFIED ATRIAL FIBRILLATION Qualifiers: Atrial fibrillation type: permanent Qualified Code(s): I48.2 - Chronic atrial fibrillation (5) Prostate CA Code(s): C61 - MALIGNANT NEOPLASM OF PROSTATE (6) CHF (congestive heart failure) Code(s): I50.9 - HEART FAILURE, UNSPECIFIED (7) COPD exacerbation Code(s): J44.1 - CHRONIC OBSTRUCTIVE PULMONARY DISEASE W (ACUTE) EXACERBATION (8) Choledocholithiasis Code(s): K80.50 - CALCULUS OF BILE DUCT W/O CHOLANGITIS OR CHOLECYST W/O OBST (9) Dilated cbd, acquired Code(s): K83.8 - OTHER SPECIFIED DISEASES OF BILIARY TRACT (10) Bladder spasms Code(s): N32.89 - OTHER SPECIFIED DISORDERS OF BLADDER (11) Bladder spasms Code(s): N32.89 - OTHER SPECIFIED DISORDERS OF BLADDER (12) Hematuria Code(s): R31.9 - HEMATURIA, UNSPECIFIED (13) Hypomagnesemia Code(s): E83.42 - HYPOMAGNESEMIA (14) S/P cholecystectomy Code(s): Z90.49 - ACQUIRED ABSENCE OF OTHER SPECIFIED PARTS OF DIGESTIVE TRACT Assessment/Plan S/p cholecystectomy. s/p ERCP. Off AC; per Dr. Ledesma can restart Coumadin tonight, Heparin in AM. ID, Renal, , GI, Cardio consults and f/u are appreciated. OOBTC Pt with urinary retention, requires self catheterization. Bladder spasm, resolved on Flexeril. UCX is negative. AM labs. Case was d/w pt's nurse.
[2017-07-30 09:36] LABS: INR 1.18 (0.82-1.09); PROTHROMBIN TIME (PATIENT) 13.3 SEC (9.7-13.0)
[2017-07-30] MEDS ORDERED: ALLOPURINOL 100 MG TABLET (FP) PO SCH (10:00)
[2017-07-30] MEDS ORDERED: THIAMINE HCL 100 MG TABLET (FP) PO SCH (10:00)
[2017-07-30] MEDS ORDERED: NON-FORMULARY MED NR SCH (10:00)
[2017-07-30] MEDS ORDERED: ASCORBIC ACID 500 MG TABLET (FP) PO SCH (10:00)
[2017-07-30] MEDS ORDERED: FERROUS SO4 325 MG TABLET (FP) PO SCH (10:00)
[2017-07-30] MEDS ORDERED: LACTOBACILLUS ACIDOPHILUS 1 TABLET PO SCH (10:00)
[2017-07-30] MEDS ORDERED: PYRIDOXINE HCL (B-6) 50 MG TABLET (FP) PO SCH (10:00)
[2017-07-30] MEDS ORDERED: NON-FORMULARY MED IH SCH (10:00)
[2017-07-30] MEDS ORDERED: VITAMIN E 400 INTERNATIONAL-UNITS CAPSULE (FP) PO SCH (10:00)
[2017-07-30] MEDS ORDERED: NON-FORMULARY MED PO SCH ×3 (10:00)
[2017-07-30 10:02] LABS: CHLORIDE 107 mmol/L (98-107); POTASSIUM 4.1 mmol/L (3.5-5.1); SODIUM 139 mmol/L (136-145)
[2017-07-30] MEDS: PANTOPRAZOLE SODIUM 40 MG VIAL IVPUSH SCH (10:23)
[2017-07-30] MEDS: DOCUSATE SODIUM 100 MG CAPSULE (FP) PO SCH (10:24)
[2017-07-30 10:37] LABS: ALBUMIN 2.9 g/dl (3.4-5.0); ALK PHOS 81 U/L (45-117); ANION GAP 11 (8-16); BILIRUBIN,TOTAL 0.4 mg/dL (0.2-1.0); BLOOD UREA NITROGEN 22 mg/dL (7-18); CALCIUM 8.3 mg/dL (8.5-10.1); CO2 21 mmol/L (21-32); CREATININE 2.6 mg/dL (0.7-1.3); GLUCOSE,RANDOM 94 mg/dL (74-106); SGOT/AST 10 U/L (15-37); SGPT/ALT 16 U/L (12-78); TOT PROT 5.6 g/dl (6.4-8.2)
[2017-07-30] MEDS: SODIUM CHLORIDE 1,000 ML IV SCH (11:02)
--- NOTE | 2017-07-30 11:06 | PN ---
Progress Note (short form) - Note Progress Note: surgery pt seen and examined. feels well. tolerating diet. ambulating and voiding. afebrile abd- soft, nt, small ecchymosis. Laboratory Tests 07/30/17 06:30 Hgb 9.7 L Plan- surgically stable for d/c ok to resume coumadin today. No surgical need for abx. ok to shower. no lifting. f/u in 2 weeks [phone].
--- NOTE | 2017-07-30 11:12 | PN ---
Progress Note (short form) - Note Progress Note: Post op day#1.S/P Laproscopic cholecystectomy under [place] uneventful.Patient stable.no any anesthesia related problem.Patient Dc from the anesthesia care.
[2017-07-30] MEDS ORDERED: POLYETHYLENE GLYCOL 3350 119 GM BTL PO ONE (12:00)
--- NOTE | 2017-07-30 13:00 | PN ---
Progress Note (short form) - Note Progress Note: GI NOte> : Doing well postop. Discussed case with Dr Ledesma. NO GI objections to discharge Problem List - Problems (1) Choledocholithiasis Code(s): K80.50 - CALCULUS OF BILE DUCT W/O CHOLANGITIS OR CHOLECYST W/O OBST (2) Supratherapeutic INR Code(s): R79.1 - ABNORMAL COAGULATION PROFILE
--- NOTE | 2017-07-30 13:28 | PN ---
Progress Note (short form) - Note Progress Note: Renal follow up for BRIAN on CKD Pt seen and examined at the bedside no acute complaints did not catherize but is making urine no sob, chest pain, abd pain Vital Signs Temperature 97.8 F 07/30/17 10:00 Pulse Rate 74 07/30/17 10:00 Respiratory Rate 20 07/30/17 10:00 Blood Pressure 98/58 07/30/17 10:00 O2 Sat by Pulse Oximetry (%) 94 L 07/30/17 09:00 Intake & Output 07/27/17 07/28/17 07/29/17 07/30/17 23:59 23:59 23:59 23:59 Intake Total 1450 1230 1180 Output Total 1300 1075 1510 950 Balance 150 155 -330 -950 NAD awake and alert RRR CTA mild bladder distension No LE edema CBC, BMP 07/30/17 06:30 07/30/17 06:55 Current Medications Acetaminophen (Tylenol -) 650 mg PO Q6H PRN PRN Reason: PAIN LEVEL 1-5 Albuterol Sulfate (Ventolin Hfa Inhaler -) 1 puff IH Q6H PRN PRN Reason: SHORTNESS OF BREATH Allopurinol (Zyloprim -) 100 mg PO DAILY [facility] Last Admin: 07/30/17 10:24 Dose: 100 mg Ascorbic Acid (Vitamin C -) 500 mg PO DAILY [facility] Last Admin: 07/30/17 10:24 Dose: 500 mg Cyclobenzaprine HCl (Flexeril -) 10 mg PO TID [facility] Last Admin: 07/30/17 06:09 Dose: 10 mg Docusate Sodium (Colace -) 100 mg PO BID [facility] Last Admin: 07/30/17 10:24 Dose: 100 mg Ferrous Sulfate (Feosol -) 325 mg PO DAILY [facility] Last Admin: 07/30/17 10:24 Dose: 325 mg Lactobacillus Acidophilus (Bacid -) 1 tab PO DAILY [facility] Last Admin: 07/30/17 10:23 Dose: 1 tab Metoprolol Tartrate (Lopressor -) 50 mg PO TID [facility] Last Admin: 07/30/17 06:08 Dose: 50 mg Morphine Sulfate (Morphine Sulfate) 4 mg IVPB Q3H PRN PRN Reason: PAIN LEVEL 7 - 10 Non-Formulary Medication (Non-Formulary Med) 1 each IH DAILY [facility] Last Admin: 07/30/17 10:24 Dose: 1 each Non-Formulary Medication (Non-Formulary Med) 1 each NR DAILY [facility] Last Admin: 07/30/17 10:24 Dose: 1 each Non-Formulary Medication (Non-Formulary Med) 1 each PO DAILY [facility] Last Admin: 07/30/17 10:24 Dose: 1 each Non-Formulary Medication (Non-Formulary Med) 1 each PO DAILY [facility] Last Admin: 07/30/17 10:25 Dose: 1 each Non-Formulary Medication (Non-Formulary Med) 1 each PO BIDWM [facility] Last Admin: 07/30/17 08:25 Dose: 1 each Non-Formulary Medication (Non-Formulary Med) 1 each PO DAILY [facility] Last Admin: 07/30/17 10:25 Dose: 1 each Ondansetron HCl (Zofran Injection) 4 mg IVPUSH Q6H PRN PRN Reason: NAUSEA AND/OR VOMITING Oxycodone HCl (Roxicodone -) 7.5 mg PO Q4H PRN PRN Reason: PAIN LEVEL 6-10 Pantoprazole Sodium (Protonix -) 40 mg PO DAILY [facility] Pyridoxine HCl (Vitamin B6 -) 50 mg PO DAILY [facility] Last Admin: 07/30/17 10:25 Dose: 50 mg Tamsulosin HCl (Flomax -) 0.4 mg PO 0830 [facility] Last Admin: 07/30/17 08:25 Dose: 0.4 mg Thiamine HCl (Vitamin B1 -) 100 mg PO DAILY [facility] Last Admin: 07/30/17 10:23 Dose: 100 mg Vitamin E (Vitamin E -) 400 unit PO DAILY [facility] Last Admin: 07/30/17 10:25 Dose: 400 unit Warfarin Sodium (Coumadin -) 6 mg PO ONCE@1800 ONE Stop: 07/30/17 18:01 87 year old gentleman with PMhx of CKD stage 4, Prostate Ca s/p radiation Tx, Urethral strictures presented with dysuria and weakness and found to have BRIAN. #BRIAN secondary to bladder outlet obstruction (baseline Cr 2.6) #Urethral strictures #UTI Renal function is improved and stable pt is making urine continue self catherization every 3 days follow up with urology as outpatient stable for discharge from renal perspective Jacques Esquivel DO
[2017-07-30 14:10] VITALS: BP 117/65; PULSE 66
--- NOTE | 2017-07-30 14:13 | DS ---
Physical Examination Vital Signs: Vital Signs Temperature 97.8 F 07/30/17 10:00 Pulse Rate 74 07/30/17 10:00 Respiratory Rate 20 07/30/17 10:00 Blood Pressure 98/58 07/30/17 10:00 O2 Sat by Pulse Oximetry (%) 94 L 07/30/17 09:00 Findings/Remarks: for HPI, PE see today note. Case was d/w Dr. Colon today; OK to DC pt home today and start Coumadin tonight. Dr Ledesma and cleared pt fordischarge home today. Case was d/w pt. nurse; pt to be DC'ed home today. Time spent in managing pt's care: over 50 minutes. Labs: CBC, BMP 07/30/17 06:30 07/30/17 06:55 Discharge Summary Reason For Visit: UTI Current Active Problems BRIAN (acute kidney injury) (Acute) Bladder spasms (Acute) Bladder spasms (Acute) Choledocholithiasis (Acute) Dilated cbd, acquired (Acute) Hematuria (Acute) Hypomagnesemia (Acute) Prostate CA (Acute) S/P cholecystectomy (Acute) Urethral stricture (Acute) Urinary tract infection (Acute) Procedures: Principal: Abd/pelvis CT scan. ERCP. Cholecystectomy Hospital Course: Pt came to ER for dysuria, increasein urinary leakage; he was also found to be in AFR. Pt received abtx, IVF. Pt was seen be (Dr. Marie), ID (Dr. Lewis), Renal( Dr. Lazo/ [facility]). On abd/pelvis CTscan was found to have cholelitiasis and choledocholitiasis. Pt was seen by GI (Dr. Bhatt) underwent ERCP with extraction of 3 stones; pt was recommended evaluation for cholecystectomy, was seen By Sx (Dr. Ledesma) and underwent cholecystectomy- tolerated well. Hospital course was complicated by severe bladder spasm, resolved after pr was strted on Flexeril, per . Pt to be DC'ed home. Pt to start Coumadin tonight. Condition: Improved - Instructions Diet, Activity, Other Instructions: Coumadin 6 mg on 07/30/2017 and 07/31/2017; staring 08/01/2017 resume 4.5 mg every night. INR on 08/04/2017 No lifting. Follow-up in [address] Ledesma (phone # [phone]). Referrals: Enrike Zee MD [Staff Physician] - Enrike Rivero MD [Primary Care Provider] - (within one week) Gt Ledesma MD [Staff Physician] - ( in 2 weeks. call [phone].) Jacques Esquivel MD [Staff Physician] - (1-2 weks) Henrique Bhatt MD [Staff Physician] - (2-4 weeks) Disposition: HOME - Home Medications Comprehensive Discharge Medication List: Ambulatory Orders
--- NOTE | 2017-07-30 14:24 | PN ---
Progress Note, Physician History of Present Illness: Tolerating diet post lap cholecystectomy. - Current Medication List Current Medications: Active Medications Acetaminophen (Tylenol -) 650 mg PO Q6H PRN PRN Reason: PAIN LEVEL 1-5 Albuterol Sulfate (Ventolin Hfa Inhaler -) 1 puff IH Q6H PRN PRN Reason: SHORTNESS OF BREATH Allopurinol (Zyloprim -) 100 mg PO DAILY [facility] Last Admin: 07/30/17 10:24 Dose: 100 mg Ascorbic Acid (Vitamin C -) 500 mg PO DAILY [facility] Last Admin: 07/30/17 10:24 Dose: 500 mg Cyclobenzaprine HCl (Flexeril -) 10 mg PO TID [facility] Last Admin: 07/30/17 14:01 Dose: Not Given Docusate Sodium (Colace -) 100 mg PO BID [facility] Last Admin: 07/30/17 10:24 Dose: 100 mg Ferrous Sulfate (Feosol -) 325 mg PO DAILY [facility] Last Admin: 07/30/17 10:24 Dose: 325 mg Lactobacillus Acidophilus (Bacid -) 1 tab PO DAILY [facility] Last Admin: 07/30/17 10:23 Dose: 1 tab Metoprolol Tartrate (Lopressor -) 50 mg PO TID [facility] Last Admin: 07/30/17 14:01 Dose: 50 mg Morphine Sulfate (Morphine Sulfate) 4 mg IVPB Q3H PRN PRN Reason: PAIN LEVEL 7 - 10 Non-Formulary Medication (Non-Formulary Med) 1 each IH DAILY [facility] Last Admin: 07/30/17 10:24 Dose: 1 each Non-Formulary Medication (Non-Formulary Med) 1 each NR DAILY [facility] Last Admin: 07/30/17 10:24 Dose: 1 each Non-Formulary Medication (Non-Formulary Med) 1 each PO DAILY [facility] Last Admin: 07/30/17 10:24 Dose: 1 each Non-Formulary Medication (Non-Formulary Med) 1 each PO DAILY [facility] Last Admin: 07/30/17 10:25 Dose: 1 each Non-Formulary Medication (Non-Formulary Med) 1 each PO BIDWM [facility] Last Admin: 07/30/17 08:25 Dose: 1 each Non-Formulary Medication (Non-Formulary Med) 1 each PO DAILY [facility] Last Admin: 07/30/17 10:25 Dose: 1 each Ondansetron HCl (Zofran Injection) 4 mg IVPUSH Q6H PRN PRN Reason: NAUSEA AND/OR VOMITING Oxycodone HCl (Roxicodone -) 7.5 mg PO Q4H PRN PRN Reason: PAIN LEVEL 6-10 Pantoprazole Sodium (Protonix -) 40 mg PO DAILY [facility] Pyridoxine HCl (Vitamin B6 -) 50 mg PO DAILY [facility] Last Admin: 07/30/17 10:25 Dose: 50 mg Tamsulosin HCl (Flomax -) 0.4 mg PO 0830 [facility] Last Admin: 07/30/17 08:25 Dose: 0.4 mg Thiamine HCl (Vitamin B1 -) 100 mg PO DAILY [facility] Last Admin: 07/30/17 10:23 Dose: 100 mg Vitamin E (Vitamin E -) 400 unit PO DAILY [facility] Last Admin: 07/30/17 10:25 Dose: 400 unit Warfarin Sodium (Coumadin -) 6 mg PO ONCE@1800 ONE Stop: 07/30/17 18:01 - Objective Vital Signs: Vital Signs Temperature 97.8 F 07/30/17 14:08 Pulse Rate 66 07/30/17 14:08 Respiratory Rate 20 07/30/17 14:08 Blood Pressure 117/65 07/30/17 14:08 O2 Sat by Pulse Oximetry (%) 94 L 07/30/17 09:00 Constitutional: Yes: No Distress, Calm, Thin Neck: Yes: Supple Cardiovascular: Yes: Pulse Irregular Respiratory: Yes: Regular, Diminished Gastrointestinal: Yes: Normal Bowel Sounds, Soft Edema: No Labs: CBC, BMP 07/30/17 06:30 07/30/17 06:55 INR, PTT INR 1.18 (0.82-1.09) H 07/30/17 06:55 Problem List - Problems (1) BRIAN (acute kidney injury) Code(s): N17.9 - ACUTE KIDNEY FAILURE, UNSPECIFIED (2) Choledocholithiasis Code(s): K80.50 - CALCULUS OF BILE DUCT W/O CHOLANGITIS OR CHOLECYST W/O OBST (3) Dilated cbd, acquired Code(s): K83.8 - OTHER SPECIFIED DISEASES OF BILIARY TRACT (4) Urethral stricture Code(s): N35.9 - URETHRAL STRICTURE, UNSPECIFIED Qualifiers: Urethral stricture type: other stricture Qualified Code(s): N35.8 - Other urethral stricture (5) A-fib Code(s): I48.91 - UNSPECIFIED ATRIAL FIBRILLATION Qualifiers: Atrial fibrillation type: permanent Qualified Code(s): I48.2 - Chronic atrial fibrillation (6) Cholelithiasis Code(s): K80.20 - CALCULUS OF GALLBLADDER W/O CHOLECYSTITIS W/O OBSTRUCTION Qualifiers: Cholelithiasis location: gallbladder and bile duct Cholecystitis presence: without cholecystitis Biliary obstruction: without biliary obstruction Qualified Code(s): K80.70 - Calculus of gallbladder and bile duct without cholecystitis without obstruction (7) Chronic kidney disease Code(s): N18.9 - CHRONIC KIDNEY DISEASE, UNSPECIFIED Qualifiers: Chronic kidney disease stage: stage 2 (mild) Qualified Code(s): N18.2 - Chronic kidney disease, stage 2 (mild) (8) Diastolic CHF, chronic Code(s): I50.32 - CHRONIC DIASTOLIC (CONGESTIVE) HEART FAILURE (9) History of pacemaker Code(s): Z95.0 - PRESENCE OF CARDIAC PACEMAKER (10) Hyperlipidemia Code(s): E78.5 - HYPERLIPIDEMIA, UNSPECIFIED Qualifiers: Hyperlipidemia type: pure hypercholesterolemia Qualified Code(s): E78.00 - Pure hypercholesterolemia, unspecified (11) Hypertension Code(s): I10 - ESSENTIAL (PRIMARY) HYPERTENSION Qualifiers: Hypertension type: essential hypertension (12) Kidney stones Code(s): N20.0 - CALCULUS OF KIDNEY (13) SSS (sick sinus syndrome) Code(s): I49.5 - SICK SINUS SYNDROME (14) Urinary retention Code(s): R33.9 - RETENTION OF URINE, UNSPECIFIED (15) S/P cholecystectomy Code(s): Z90.49 - ACQUIRED ABSENCE OF OTHER SPECIFIED PARTS OF DIGESTIVE TRACT Assessment/Plan 05/25/2016 Echocardiography performed yesterday revealed overall preserved left ventricular systolic function, bi-atrial dilatation, mild mitral valve regurgitation, mild to moderate tricuspid valve regurgitation 1. Post ERCP with extraction of choledocholithiasis and s/p lap cholecystectomy 2. LV diastolic dysfunction 3. CAD non-obstructive CAD angina pectoris 4. Permanent atrial fibrillation on A/C with Coumadin 5. Sick Sinus Syndrome post PPM 6. HTN 7. Hypercholesterolemia 8. Degenerative joint disease 9. Acute on CKD secondary to bladder outlet obstruction improving 10. History of bilateral nephrolithiasis and urethral stricture 11. Chronic anemia 12. COPD PLAN: 1. Continue Lopressor 50 tid 2. Resuming Coumadin per INR 3. Bronchodilator as needed, monitor renal recovery, resume Losartan once renal function stabilizes 4. May d/c home with f/u in office
--- NOTE | 2017-07-30 17:00 | PATH ---
Surgical Pathology Report Patient Name: MEKA COSTA Med. Rec. #: [id number] /Age/Gender: 1930 (Age: 87) / M Account: [id number] Location: [facility] MED/SURG Taken: 07/29/2017 Received: 07/29/2017 Reported: 07/30/2017 Physicians: Lane Mendoza M.D. Specimen(s) Received GALLBLADDER Clinical History Cholecystitis Final Diagnosis GALLBLADDER, LAPAROSCOPIC CHOLECYSTECTOMY: CHRONIC CHOLECYSTITIS AND CHOLELITHIASIS. Electronically Signed Monica Glass M.D. Gross Description Received in formalin, labeled "gallbladder," is a 7.5 x 2.8 x 2.5 cm. gallbladder with a 0.2 cm. in length portion of cystic duct attached. The outer surface is oneal-green is a focal defect and varies from smooth to shaggy. The lumen contains green, tenacious bile as well as 2 black, irregular choleliths measuring 0.6 and 1.2 cm in greatest dimension. The mucosa is green and velvety. The wall of the gallbladder averages 0.1 cm. in thickness. [place] sections are submitted in one cassette. 07/29/201707/29/2017
[2017-07-30] MEDS ORDERED: WARFARIN NA 3 MG TABLET PO ONE (18:00)
[2017-07-31] MEDS ORDERED: PANTOPRAZOLE 40 MG TABLET (FP) PO SCH (10:00)
== END 2017-07-30 17:05 | disposition home or self-care (01) | DRG 988 ==
LOC: JER 11:10 → JERBED 14:29 → J7W 17:40
PROVIDERS: ADMIT Specialist; ATTEND Specialist
PROC: 0FC98ZZ Extirpation of Matter from Common Bile Duct, Via Natural or Artificial Opening Endoscopic (ICD-10-PCS; 2017-07-25)
PROC: BF101ZZ Fluoroscopy of Bile Ducts using Low Osmolar Contrast (ICD-10-PCS; 2017-07-25)
PROC: 3E1M38Z Irrigation of Peritoneal Cavity using Irrigating Substance, Percutaneous Approach (ICD-10-PCS; 2017-07-29)
PROC: 0FT44ZZ Resection of Gallbladder, Percutaneous Endoscopic Approach (ICD-10-PCS; principal; 2017-07-29 08:30)
DX: N17.9 Acute kidney failure, unspecified (principal); N39.0 Urinary tract infection, site not specified; I13.0 Hypertensive heart and chronic kidney disease with heart failure and stage 1 through stage 4 chronic kidney disease, or unspecified chronic kidney disease; J44.1 Chronic obstructive pulmonary disease with (acute) exacerbation; I50.32 Chronic diastolic (congestive) heart failure; N18.4 Chronic kidney disease, stage 4 (severe); R33.9 Retention of urine, unspecified; I48.91 Unspecified atrial fibrillation; N13.1 Hydronephrosis with ureteral stricture, not elsewhere classified; N32.89 Other specified disorders of bladder; E83.42 Hypomagnesemia; Z85.46 Personal history of malignant neoplasm of prostate; Z95.0 Presence of cardiac pacemaker; Z79.01 Long term (current) use of anticoagulants; E78.5 Hyperlipidemia, unspecified; K57.30 Diverticulosis of large intestine without perforation or abscess without bleeding; I36.1 Nonrheumatic tricuspid (valve) insufficiency; K80.50 Calculus of bile duct without cholangitis or cholecystitis without obstruction; Z87.891 Personal history of nicotine dependence; I25.119 Atherosclerotic heart disease of native coronary artery with unspecified angina pectoris; D53.9 Nutritional anemia, unspecified; K59.00 Constipation, unspecified; R79.1 Abnormal coagulation profile; M19.90 Unspecified osteoarthritis, unspecified site
CPT/HCPCS: 36415; 71045-TC-FY; 74176-TC; 74330-TC; 76000-TC-FY; 76775-TC; 76856-TC; 80048; 80053; 80076; 81003; 81015; 82150; 82248; 82962; 83605; 83690; 83735; 84100; 85025; 85027; 85610; 85730; 86140; 87040; 87086; 88304-TC; 93005; 93010; 94760; 99283-25; J1644; J7030

== ENCOUNTER 2017-11-04 08:09 | Inpatient (IN) | payer OTHER, BC ==
--- NOTE | 2017-11-04 09:18 | PDOC ---
History of Present Illness <Garrett Lui - Last Filed: 11/04/17 10:01> - General History Source: Patient Exam Limitations: No Limitations - History of Present Illness Initial Comments: 11/04/17 10:21 The patient is a 87 year old male, with a significant past medical history of urethral stricture (self-catheterization ever 3-4 days), CAD, AFib (s/p pacemaker, on Coumadin), COPD, diverticulosis, prostate CA (s/p radiation seed implantation), kidney stones with subsequent damage to left kidney, and hyperlipidemia who presents to the emergency department sent by Dr. Rachel Lepe for hemodialysis with c/o mild shortness of breath, chest congestion and sore throat today. Pt reportedly had a catheter placed to the left side yesterday by Dr. Thompson. He states he has not taken his coumadin in preparation for his procedure yesterday. The patient denies chest pain, headache and dizziness. The patient denies fever , chills, nausea, vomit, diarrhea and constipation. The patient denies dysuria, frequency, urgency and hematuria. Allergies: Azithromycin Social history: denies toxic habits PCP: Dr. Enrike Rivero Onc: Dr. Cristobal <JuveIdalia - Last Filed: 11/04/17 10:22> - General Chief Complaint: Weakness Stated Complaint: SENT BY PCP,DIALYSIS Time Seen by Provider: 11/04/17 08:31 Past History - Past Medical History Anemia: No Asthma: No Cancer: Yes (PROSTATE,RADIATION,SEEDS) Cardiac Disorders: Yes (a.fib) CVA: No COPD: Yes CHF: No DVT: No Dementia: No Diabetes: No GI Disorders: Yes (diverticulosis) Disorders: Yes (NON FUNCTIONING LEFT KIDNEY) HTN: Yes Hypercholesterolemia: Yes (DIET CONTROLLED) Liver Disease: No Seizures: No Thyroid Disease: No - Surgical History Abdominal Surgery: Yes (HERNIA-R INGUINAL) Appendectomy: Yes () Cardiac Surgery: Yes (pacemaker-1999,REPLACED 2012) Cholecystectomy: No Lung Surgery: No Neurologic Surgery: No Orthopedic Surgery: Yes (TOTAL L KNEE REPLACEMENT-2001,TOTAL LEFT HIP REPLACEMENT-2003) - Immunization History Immunization Up to Date: Yes - Suicide/Smoking/Psychosocial Hx Smoking Status: Yes Smoking History: Former smoker Have you smoked in the past 12 months: No Number of Cigarettes Smoked Daily: 0 If you are a former smoker, when did you quit?: 23 YRS Cigars Per Day: 0 Information on smoking cessation initiated: No Hx Alcohol Use: No Drug/Substance Use Hx: No Substance Use Type: None Hx Substance Use Treatment: No <Garrett Lui - Last Filed: 11/04/17 10:01> <Idalia An - Last Filed: 11/04/17 10:22> - Past Medical History Allergies/Adverse Reactions: Allergies Allergy/AdvReac Type Severity Reaction Status Date / Time azithromycin AdvReac Intermediate HEADACHE Verified 11/04/17 08:25 Home Medications: Ambulatory Orders Albuterol Sulfate [Proair Respiclick] 90 mcg IH QID PRN 05/21/16 Allopurinol [Zyloprim -] 100 mg PO DAILY 05/21/16 Ascorbic Acid [Vitamin C] 500 mg PO DAILY 05/21/16 Cholecalciferol (Vitamin D3) [Vitamin D3] 5,000 unit PO Q48H 05/21/16 L.acidoph,Paracasei, B.lactis [Probiotic] 1 each PO DAILY 05/21/16 Methenamine Hippurate [Hiprex [Nf] -] 1 gm PO BID 05/21/16 Metoprolol Tartrate [Lopressor] 50 mg PO TID 05/21/16 Pyridoxine HCl [Vitamin B6] 50 mg PO DAILY 05/21/16 Tamsulosin HCl [Flomax] 0.4 mg PO DAILY 05/21/16 Thiamine HCl [Vitamin B1] 100 mg PO DAILY 05/21/16 Triamcinolone Acetonide [Nasacort] 2 sprays NS DAILY 05/21/16 Ubidecarenone [Coq-10] 100 mg PO DAILY 05/21/16 Vitamin E 400 unit PO DAILY 05/21/16 Acetaminophen [Tylenol .Regular Strength -] 650 mg PO Q6H PRN tablet 07/30/17 Ferrous Sulfate [Feosol] 325 mg PO DAILY ud 07/30/17 Clindamycin HCl 300 mg PO ASDIR PRN 11/04/17 Fluticasone/Vilanterol [Breo Ellipta 200-25 Mcg INH] 1 each IH AM 11/04/17 Multivitamin [Multiple Vitamins] 1 each PO DAILY 11/04/17 Polyethylene Glycol 3350 [Miralax (For Daily Use) -] 17 gm PO HS 11/04/17 Torsemide 100 mg PO DAILY 11/04/17 Warfarin Na [Coumadin -] 4.5 mg PO ASDIR 11/04/17 Warfarin Na [Coumadin] 3 mg PO ASDIR 11/04/17 Review of Systems - Review of Systems Constitutional: No: Chills, Fever HEENTM: Yes: Nose Congestion Respiratory: No: Cough, Shortness of Breath Cardiac (ROS): Yes: Edema. No: Chest Pain ABD/GI: No: Nausea, Vomiting All Other Systems: Reviewed and Negative <Garrett Lui - Last Filed: 11/04/17 10:01> *Physical Exam - Vital Signs Last Vital Signs Temp Pulse Resp BP Pulse Ox 97.9 F 75 19 98/50 100 11/04/17 08:26 11/04/17 08:26 11/04/17 08:26 11/04/17 08:26 11/04/17 08:26 <Garrett Lui - Last Filed: 11/04/17 10:01> - Vital Signs Last Vital Signs Temp Pulse Resp BP Pulse Ox 97.9 F 75 19 98/50 100 11/04/17 08:26 11/04/17 08:26 11/04/17 08:26 11/04/17 08:26 11/04/17 08:35 - Physical Exam Comments: 11/04/17 10:21 GENERAL: The patient is awake, alert, and fully oriented, in no acute distress. HEAD: Normal with no signs of trauma. EYES: Pupils equal, round and reactive to light, extraocular movements intact, sclera anicteric, conjunctiva clear with no pallor. ENT: Ears normal, nares patent, oropharynx clear without exudates. Moist mucous membranes. NECK: Normal range of motion, supple without lymphadenopathy, JVD, or masses. LUNGS: Breath sounds equal, clear to auscultation bilaterally. No wheeze/ crackles. HEART: (+) Irregular rhythm, regular rate, normal S1 and S2 without murmur or rub. ABDOMEN: Soft/nontender/nondistended. BS wnl. No guarding or rebound. No palpable masses. No hepatosplenomegaly. EXTREMITIES: (+) edema to bilateral ankles. Normal range of motion, No clubbing or cyanosis. No cords, erythema, or tenderness. NEUROLOGICAL: Cranial nerves II through XII grossly intact. Normal speech, normal gait. PSYCH: Normal mood, normal affect. SKIN: (+) Healed incision scar to left knee. Left chest wall dialysis chat in place some dried blood otherwise no discharge or drainage. Warm, Dry, normal turgor, no rashes noted. <Idalia An - Last Filed: 11/04/17 10:22> Heart Score/ECG Review #1 General ECG Interpretation: Normal Rate (afib at 82), Normal Intervals (qtc 432) , No acute ischemic changes <Garrett Lui - Last Filed: 11/04/17 10:01> ED Treatment Course - RADIOLOGY Radiology Studies Ordered: Category Date Time Status CHEST X-RAY PORTABLE* [RAD] Stat Radiology 11/04/17 09:17 Ordered <Garrett Lui - Last Filed: 11/04/17 10:01> Medical Decision Making - Medical Decision Making 11/04/17 10:02 87-year-old male with history of hypertension, atrial fibrillation, worsening renal insufficiency now with edema status post left chest dialysis catheter placement yesterday that was uncomplicated presents now to initiate dialysis. Some upper respiratory congestion but no cough or fevers or chills or chest pain , worsening bilateral ankle edema without orthopnea. Vitals as noted. Left chest dialysis catheter in place with some dried blood but no other discharge or bleeding Lungs are clear, heart is irregular with normal rate Trace ankle edema bilaterally, no calf tenderness 87-year-old male sent to initiate dialysis in the setting of worsening renal function, no acute respiratory distress but early volume overload. Seen with Dr. Rivero at bedside, will admit Dr. Rachel Miller aware and will arrange dialysis Labs, EKG, chest x-ray Admission to dialysis bed. <Garrett Lui - Last Filed: 11/04/17 10:01> *DC/Admit/Observation/Transfer - Discharge Dispostion Decision to Admit order: Yes <Garrett Lui - Last Filed: 11/04/17 10:01> - Attestations Scribe Attestion: 11/04/17 10:22 Documentation prepared by Idalia An, acting as medical representative for Garrett Lui MD <Idalia An - Last Filed: 11/04/17 10:22> Diagnosis at time of Disposition: Chronic kidney disease Qualifiers: Chronic kidney disease stage: unspecified stage Qualified Code(s): N18.9 - Chronic kidney disease, unspecified Volume overload Qualifiers: Hypervolemia type: unspecified Qualified Code(s): E87.70 - Fluid overload, unspecified - Referrals Referrals: Enrike Rivero MD [Primary Care Provider] - - Patient Instructions - Post Discharge Activity
[2017-11-04] MEDS ORDERED: ACETAMINOPHEN 325 MG TABLET (FP) PO PRN (10:40)
[2017-11-04] MEDS ORDERED: PATIENT'S OWN MEDICATION (NON-FORMULARY) (Albuterol Sulfate [Proair Respiclick] 90 MCG) IH PRN (10:40)
--- NOTE | 2017-11-04 10:40 | HP ---
Admitting History and Physical - Primary Care Physician PCP: Kayla Rivero - Admission Chief Complaint: dyalsis History of Present Illness: The patient is a 87 year old male, with a significant past medical history of urethral stricture (self-catheterization ever 3-4 days), CAD, AFib (s/p pacemaker, on Coumadin), COPD, diverticulosis, prostate CA (s/p radiation seed implantation), kidney stones with subsequent damage to left kidney, and hyperlipidemia who presents to the emergency department sent by Dr. Rachel Lepe for hemodialysis with c/o mild shortness of breath, chest congestion and sore throat today. Pt reportedly had a catheter placed to the left side yesterday by Dr. Thompson. He states he has not taken his coumadin in preparation for his procedure yesterday. The patient denies chest pain, headache and dizziness. The patient denies fever , chills, nausea, vomit, diarrhea and constipation. The patient denies dysuria, frequency, urgency and hematuria. Allergies: Azithromycin History Source: Patient, Family Member, Medical Record Limitations to Obtaining History: No Limitations - Past Medical History Cardiovascular: Yes: AFIB (on AC), CAD, HTN, Hyperlipdemia, Other (SSS with PPM) Pulmonary: Yes: COPD Renal/: Yes: BPH, Cancer (prostate), Renal Calculi, Other (urinary incontinence) Heme/Onc: Yes: Cancer (prostate) - Past Surgical History Past Surgical History: Yes: Appendectomy, Hernia Repair, Joint Replacement - Smoking History Smoking history: Former smoker Have you smoked in the past 12 months: No Aproximately how many cigarettes per day: 0 If you are a former smoker, when did you quit?: 23 YRS - Alcohol/Substance Use Hx Alcohol Use: No History of Substance Use: reports: None - Social History Usual Living Arrangement: Yes: With Spouse ADL: Independent History of Recent Travel: No Home Medications - Allergies Allergies/Adverse Reactions: Allergies Allergy/AdvReac Type Severity Reaction Status Date / Time azithromycin AdvReac Intermediate HEADACHE Verified 11/04/17 08:25 - Home Medications Home Medications: Ambulatory Orders Albuterol Sulfate [Proair Respiclick] 90 mcg IH QID PRN 05/21/16 Allopurinol [Zyloprim -] 100 mg PO DAILY 05/21/16 Ascorbic Acid [Vitamin C] 500 mg PO DAILY 05/21/16 Cholecalciferol (Vitamin D3) [Vitamin D3] 5,000 unit PO Q48H 05/21/16 L.acidoph,Paracasei, B.lactis [Probiotic] 1 each PO DAILY 05/21/16 Methenamine Hippurate [Hiprex [Nf] -] 1 gm PO BID 05/21/16 Metoprolol Tartrate [Lopressor] 50 mg PO TID 05/21/16 Pyridoxine HCl [Vitamin B6] 50 mg PO DAILY 05/21/16 Tamsulosin HCl [Flomax] 0.4 mg PO DAILY 05/21/16 Thiamine HCl [Vitamin B1] 100 mg PO DAILY 05/21/16 Triamcinolone Acetonide [Nasacort] 2 sprays NS DAILY 05/21/16 Ubidecarenone [Coq-10] 100 mg PO DAILY 05/21/16 Vitamin E 400 unit PO DAILY 05/21/16 Acetaminophen [Tylenol .Regular Strength -] 650 mg PO Q6H PRN tablet 07/30/17 Ferrous Sulfate [Feosol] 325 mg PO DAILY ud 07/30/17 Clindamycin HCl 300 mg PO ASDIR PRN 11/04/17 Fluticasone/Vilanterol [Breo Ellipta 200-25 Mcg INH] 1 each IH AM 11/04/17 Multivitamin [Multiple Vitamins] 1 each PO DAILY 11/04/17 Polyethylene Glycol 3350 [Miralax (For Daily Use) -] 17 gm PO HS 11/04/17 Torsemide 100 mg PO DAILY 11/04/17 Warfarin Na [Coumadin -] 4.5 mg PO ASDIR 11/04/17 Warfarin Na [Coumadin] 3 mg PO ASDIR 11/04/17 Family Disease History - Family Disease History Family History: Unremarkable Review of Systems - Review of Systems Constitutional: denies: Chills, Fever, Lethargy Eyes: denies: Blind Spots, Blurred Vision, Double Vision HENT: denies: Difficult Swallowing, Ear Pain, Epistaxis Neck: denies: Pain on Movement, Stiffness, Tenderness Cardiovascular: denies: Chest Pain, Palpitations, Shortness of Breath Respiratory: denies: Cough, SOB Gastrointestinal: denies: Abdominal Pain, Bloating, Constipation, Diarrhea, Vomiting Genitourinary: denies: Dysuria, Flank Pain Musculoskeletal: denies: Back Pain, Joint Pain Neurological: denies: Change in LOC, Change in Speech, Confusion, Dizziness, Pre -Existing Deficit Hematology/Lymphatic: denies: Easily Bruised, Excessive Bleeding Psychiatric: denies: Altered Sleep Pattern, Anxiety, Depression Physical Examination Vital Signs: Vital Signs Temperature 97.9 F 11/04/17 08:26 Pulse Rate 75 11/04/17 08:26 Respiratory Rate 19 11/04/17 08:26 Blood Pressure 98/50 11/04/17 08:26 O2 Sat by Pulse Oximetry (%) 100 11/04/17 08:35 Constitutional: Yes: No Distress, Calm Eyes: Yes: Conjunctiva Clear HENT: Yes: Atraumatic Neck: Yes: Supple Cardiovascular: Yes: Regular Rate and Rhythm, Other (L upper chest permacath) Respiratory: Yes: CTA Bilaterally Gastrointestinal: Yes: Soft. No: Tenderness Renal/: No: CVA Tenderness - Left, CVA Tenderness - Right Musculoskeletal: No: Joint Stiffness, Joint Swelling Extremities: No: Cold, Cool, Cyanosis Edema: No Integumentary: No: Rash, Venous Stasis Changes Neurological: Yes: WNL, Alert, Oriented ...Motor Strength: WNL Psychiatric: Yes: WNL, Alert, Oriented. No: Agitated, Suicidal Ideation Imaging - Results Chest X-ray: Report Reviewed Other: Report Reviewed Assessment/Plan The patient is a 87 year old male, with a significant past medical history of urethral stricture (self-catheterization ever 3-4 days), CAD, AFib (s/p pacemaker, on Coumadin), COPD, diverticulosis, prostate CA (s/p radiation seed implantation), kidney stones with subsequent damage to left kidney, and hyperlipidemia who presents to the emergency department sent by Dr. Rachel Lepe for hemodialysis; mild upper congestion; afebrile - no antibiotics for now; close f/u borderline low BP: will adjust meds; watch for BP drop with dyalisis; hold BP meds if SBP<110; no signs of infectio or sepsis now; no bleeding Allergies: Azithromycin real eval, dyalsis per renal will need f/u with vascular sx for AVF to restart coumadin if OK with vascular sx f/u IR in 2-3 days d/w pt and at bedside t time 75 min d/w staff
[2017-11-04] MEDS ORDERED: CHOLECALCIFEROL (VITAMIN D3) 1,000 UNIT TABLET (FP) PO SCH (10:45)
[2017-11-04] MEDS ORDERED: WARFARIN NA 2 MG TABLET (UD) PO SCH (10:45)
[2017-11-04 11:44] LABS: INR 1.34 (0.83-1.09); PROTHROMBIN TIME (PATIENT) 15.1 SEC (9.7-13.0)
[2017-11-04 11:46] LABS: BASO % 0.4 % (0-2.0); EOS % 0.6 % (0-4.5); HEMATOCRIT 30.7 % (35.4-49); HEMOGLOBIN 9.9 GM/dL (11.7-16.9); LYMPH % 14.8 % (8-40); MCH 28.4 pg (25.7-33.7); MCHC 32.3 g/dl (32.0-35.9); MEAN CELL VOLUME 87.9 fl (80-96); MONO % 14.4 % (3.8-10.2); NEUT % 69.8 % (42.8-82.8); PLATELET COUNT 138 K/MM3 (134-434); RBC 3.49 M/mm3 (4.00-5.60); RDW 18.8 % (11.9-15.9); WHITE BLOOD COUNT 9.3 K/mm3 (4.0-10.0)
[2017-11-04 11:47] LABS: ACTIVATED PTT 27.3 SECONDS (25.2-36.5)
[2017-11-04 11:49] LABS: ALBUMIN 3.6 g/dl (3.4-5.0); ANION GAP 14 MMOL/L (8-16); BILIRUBIN,TOTAL 0.5 mg/dL (0.2-1.0); BLOOD UREA NITROGEN 75 mg/dL (7-18); CALCIUM 8.8 mg/dL (8.5-10.1); CHLORIDE 113 mmol/L (98-107); CO2 17 mmol/L (21-32); CREATININE 5.2 mg/dL (0.7-1.3); GLUCOSE,RANDOM 68 mg/dL (74-106); MAGNESIUM 2.2 mg/dL (1.8-2.4); POTASSIUM 3.3 mmol/L (3.5-5.1); SGPT/ALT 13 U/L (12-78); SODIUM 144 mmol/L (136-145); TOT PROT 6.5 g/dl (6.4-8.2)
[2017-11-04 11:50] LABS: ALK PHOS 73 U/L (45-117)
[2017-11-04 12:13] LABS: SGOT/AST < 3 U/L (15-37)
[2017-11-04] MEDS ORDERED: SODIUM CHLORIDE 250 ML IV PRN ×2 (12:27→13:33)
--- NOTE | 2017-11-04 12:27 | CONSULT ---
Consult - text type - Consultation Consultation Note: Renal Consult for CKD now progressed to ESRD This is a 87 year old gentleman with hx of progressive CKD, urethral strictures requiring catherterization, CAD, Afib on Coumadin, COPD, Prostate Ca s/p radation Tx, hx of kidney stones now presents with progressive CKD and to initiate hemodialysis. s/p tunneled HD catheter placement yesterday by vascular surgery as outpatient. Pt reports some generalized fatigue and weakness. Denies any N/V/D. No flank pain, abd pain. Has frequent dribbling and urinary hesitancy. No SOB, CP, Fever, or chills. PMhx: as above Allergies: NKDA Family Hx: NC Social hx: No T/A/D ROS: as per HPI, all other pertinent ros negative Home Medications Medication Instructions Recorded Albuterol Sulfate [Proair 90 mcg IH QID PRN 05/21/16 Respiclick] Allopurinol [Zyloprim -] 100 mg PO DAILY 05/21/16 Ascorbic Acid [Vitamin C] 500 mg PO DAILY 05/21/16 Cholecalciferol (Vitamin D3) 5,000 unit PO Q48H 05/21/16 [Vitamin D3] L.acidoph,Paracasei, B.lactis 1 each PO DAILY 05/21/16 [Probiotic] Methenamine Hippurate [Hiprex [Nf] 1 gm PO BID 05/21/16 -] Metoprolol Tartrate [Lopressor] 50 mg PO TID 05/21/16 Pyridoxine HCl [Vitamin B6] 50 mg PO DAILY 05/21/16 Tamsulosin HCl [Flomax] 0.4 mg PO DAILY 05/21/16 Thiamine HCl [Vitamin B1] 100 mg PO DAILY 05/21/16 Triamcinolone Acetonide [Nasacort] 2 sprays NS DAILY 05/21/16 Ubidecarenone [Coq-10] 100 mg PO DAILY 05/21/16 Vitamin E 400 unit PO DAILY 05/21/16 Acetaminophen [Tylenol .Regular 650 mg PO Q6H PRN tablet 07/30/17 Strength -] Ferrous Sulfate [Feosol] 325 mg PO DAILY ud 07/30/17 Clindamycin HCl 300 mg PO ASDIR PRN 11/04/17 Fluticasone/Vilanterol [Breo 1 each IH AM 11/04/17 Ellipta 200-25 Mcg INH] Multivitamin [Multiple Vitamins] 1 each PO DAILY 11/04/17 Polyethylene Glycol 3350 [Miralax 17 gm PO HS 11/04/17 (For Daily Use) -] Torsemide 100 mg PO DAILY 11/04/17 Warfarin Na [Coumadin -] 4.5 mg PO ASDIR 11/04/17 Warfarin Na [Coumadin] 3 mg PO ASDIR 11/04/17 Vital Signs Temperature 97.9 F 11/04/17 08:26 Pulse Rate 72 11/04/17 11:28 Respiratory Rate 16 11/04/17 11:28 Blood Pressure 89/55 11/04/17 11:28 O2 Sat by Pulse Oximetry (%) 100 11/04/17 11:28 Intake & Output 11/01/17 11/02/17 11/03/17 11/04/17 23:59 23:59 23:59 23:59 Weight 78.018 kg NAD awake and alert Neck supple, no JVD RRR, no M/R CTA, no rales or wheeze soft NT/ND, no rebound or guarding No LE edema, no clubbing or cyanosis Left IJ catheter CBC, BMP 11/04/17 10:06 11/04/17 10:06 Current Medications Acetaminophen (Tylenol -) 650 mg PO Q6H PRN PRN Reason: PAIN LEVEL 1-5 Allopurinol (Zyloprim -) 100 mg PO DAILY [facility] Ferrous Sulfate (Feosol -) 325 mg PO DAILY [facility] Sodium Chloride (Normal Saline -) 250 mls @ 3,000 mls/hr IV PRN PRN PRN Reason: Hypotension during Dialysis Stop: 11/05/17 12:10 Metoprolol Tartrate (Lopressor -) 50 mg PO TID [facility] Multivitamins/Minerals/Vitamin C (Tab-A-Vit -) 1 tab PO DAILY [facility] Non-Formulary Medication (Albuterol Sulfate [Proair Respiclick]) 90 mcg IH QID PRN PRN Reason: SHORTNESS OF BREATH Non-Formulary Medication (Ascorbic Acid [Vitamin C]) 500 mg PO DAILY [facility] Non-Formulary Medication (Cholecalciferol (Vitamin D3) [Vitamin D3]) 5,000 unit PO Q48H [facility] Non-Formulary Medication (Fluticasone/Vilanterol [Breo Ellipta 200-25 Mcg Inh]) 1 each IH AM [facility] Non-Formulary Medication (L.Acidoph,Paracasei, B.Lactis [Probiotic]) 1 each PO DAILY [facility] Non-Formulary Medication (Methenamine Hippurate) 1 gm PO BID [facility] Non-Formulary Medication (Triamcinolone Acetonide [Nasacort]) 2 sprays NS DAILY [facility] Polyethylene Glycol (Miralax (For Daily Use) -) 17 gm PO HS [facility] Pyridoxine HCl (Vitamin B6 -) 50 mg PO DAILY [facility] Tamsulosin HCl (Flomax -) 0.4 mg PO DAILY [facility] Thiamine HCl (Vitamin B1 -) 100 mg PO DAILY [facility] Torsemide (Demadex -) 100 mg PO DAILY [facility] Warfarin Sodium (Coumadin -) 4.5 mg PO ASDIR [facility] Warfarin Sodium (Coumadin -) 3 mg PO ASDIR [facility] 87 year old gentleman with hx of progressive CKD, urethral strictures requiring catherterization, CAD, Afib on Coumadin, COPD, Prostate Ca s/p radiation Tx, hx of kidney stones now presents with progressive CKD and to initiate hemodialysis. 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 [place] Check US of the kidney and bladder Continue Flomax Continue Torsemide Trend H/H, ADRIANA with HD Continue Coumadin Thank you Will follow Jacques Esquivel DO
[2017-11-04 13:22] LABS: PLATELET ESTIMATE NORMAL
[2017-11-04] MEDS: ALBUMIN HUMAN 25% 12.5 GM/50 ML VIAL IVPB SCH ×4 (14:13→15:48)
[2017-11-04] MEDS: METOPROLOL TARTRATE 50 MG TABLET (FP) PO SCH ×2 (16:41→21:06)
--- NOTE | 2017-11-04 17:14 | EKG ---
Test Reason : Blood Pressure : / mmHG Vent. Rate : 082 BPM Atrial Rate : 083 BPM P-R Int : 000 ms QRS Dur : 074 ms QT Int : 370 ms P-R-T Axes : 000 -51 -25 degrees QTc Int : 432 ms ATRIAL FIBRILLATION WITH PREMATURE VENTRICULAR OR ABERRANTLY CONDUCTED COMPLEXES LEFT AXIS DEVIATION LOW VOLTAGE QRS ABNORMAL ECG Confirmed by MD AKILA, ALBIN ([id number]) on 11/04/2017 5:13:29 PM Referred By: Confirmed By:ALBIN WILBURN MD
[2017-11-04] MEDS ORDERED: WARFARIN NA 3 MG TABLET PO SCH (18:00)
[2017-11-04 18:27] VITALS: BMI 27.1
[2017-11-04] MEDS ORDERED: PATIENT'S OWN MEDICATION (NON-FORMULARY) (Methenamine Hippurate 1 GM) PO SCH (22:00)
[2017-11-04] MEDS ORDERED: POLYETHYLENE GLYCOL 3350 119 GM BTL PO SCH (22:00)
[2017-11-05] MEDS: METOPROLOL TARTRATE 50 MG TABLET (FP) PO SCH ×2 (06:14→13:51)
[2017-11-05] MEDS ORDERED: PATIENT'S OWN MEDICATION (NON-FORMULARY) (Fluticasone/Vilanterol [Breo Ellipta 200-25 Mcg IH SCH (07:00)
--- NOTE | 2017-11-05 07:50 | PN ---
Progress Note, Physician - Current Medication List Current Medications: Active Medications Acetaminophen (Tylenol -) 650 mg PO Q6H PRN PRN Reason: PAIN LEVEL 1-5 Allopurinol (Zyloprim -) 100 mg PO DAILY [facility] Ascorbic Acid (Vitamin C -) 500 mg PO DAILY [facility] Cholecalciferol (Vitamin D3 -) 5,000 unit PO Q48H [facility] Last Admin: 11/04/17 15:49 Dose: Not Given Epoetin Jame (Procrit -) 6,000 unit IVPUSH ONCE ONE Stop: 11/05/17 06:01 Ferrous Sulfate (Feosol -) 325 mg PO DAILY [facility] Fluticasone Propionate (Flonase -) 2 spray NS DAILY [facility] Sodium Chloride (Normal Saline -) 250 mls @ 3,000 mls/hr IV PRN PRN PRN Reason: Hypotension during Dialysis Stop: 11/05/17 12:10 Sodium Chloride (Normal Saline -) 250 mls @ 3,000 mls/hr IV PRN PRN PRN Reason: Hypotension during Dialysis Stop: 11/05/17 12:27 Sodium Chloride (Normal Saline -) 250 mls @ 3,000 mls/hr IV PRN PRN PRN Reason: Hypotension during Dialysis Stop: 11/05/17 13:33 Metoprolol Tartrate (Lopressor -) 50 mg PO TID [facility] Last Admin: 11/05/17 06:14 Dose: 50 mg Multivitamins/Minerals/Vitamin C (Tab-A-Vit -) 1 tab PO DAILY [facility] Non-Formulary Medication (Albuterol Sulfate [Proair Respiclick]) 90 mcg IH QID PRN PRN Reason: SHORTNESS OF BREATH Non-Formulary Medication (Fluticasone/Vilanterol [Breo Ellipta 200-25 Mcg Inh]) 1 each IH AM [facility] Non-Formulary Medication (L.Acidoph,Paracasei, B.Lactis [Probiotic]) 1 each PO DAILY [facility] Non-Formulary Medication (Methenamine Hippurate) 1 gm PO BID [facility] Polyethylene Glycol (Miralax (For Daily Use) -) 17 gm PO HS [facility] Last Admin: 11/04/17 21:07 Dose: Not Given Pyridoxine HCl (Vitamin B6 -) 50 mg PO DAILY [facility] Tamsulosin HCl (Flomax -) 0.4 mg PO DAILY@0830 [facility] Thiamine HCl (Vitamin B1 -) 100 mg PO DAILY [facility] Torsemide (Demadex -) 100 mg PO DAILY [facility] Warfarin Sodium (Coumadin -) 3 mg PO Q2D@1800 [facility] Last Admin: 11/04/17 17:27 Dose: 3 mg Warfarin Sodium 2.5 mg/ (Warfarin Sodium 2 mg) 4.5 mg PO Q2D@1800 [facility] - Objective Vital Signs: Vital Signs Temperature 99.3 F 11/05/17 06:00 Pulse Rate 83 11/05/17 06:00 Respiratory Rate 20 11/05/17 06:00 Blood Pressure 100/60 11/05/17 06:00 O2 Sat by Pulse Oximetry (%) 99 11/04/17 22:00 Labs: CBC, BMP 11/04/17 10:06 11/04/17 10:06 INR, PTT INR 1.34 (0.83-1.09) H 11/04/17 10:06
[2017-11-05] MEDS ORDERED: TAMSULOSIN HCL 0.4 MG CAP.ER.24H (FP) PO SCH (08:30)
[2017-11-05] MEDS ORDERED: ASCORBIC ACID 500 MG TABLET (FP) PO SCH (10:00)
[2017-11-05] MEDS ORDERED: MULTIVITAMINS (DAILY MVI) TABLET (FP) PO SCH (10:00)
[2017-11-05] MEDS ORDERED: FERROUS SO4 325 MG TABLET (FP) PO SCH (10:00)
[2017-11-05] MEDS ORDERED: ALLOPURINOL 100 MG TABLET (FP) PO SCH (10:00)
[2017-11-05] MEDS ORDERED: PYRIDOXINE HCL (B-6) 100 MG TABLET PO SCH (10:00)
[2017-11-05] MEDS ORDERED: THIAMINE HCL 100 MG TABLET (FP) PO SCH (10:00)
[2017-11-05] MEDS ORDERED: TORSEMIDE 100 MG TABLET PO SCH (10:00)
[2017-11-05] MEDS ORDERED: PATIENT'S OWN MEDICATION (NON-FORMULARY) (L.Acidoph,Paracasei, B.Lactis [Probiotic] 1 EACH PO SCH (10:00)
[2017-11-05] MEDS ORDERED: FLUTICASONE PROP 0.05% 16 GM NASAL SPRAY NS SCH (10:00)
[2017-11-05] MEDS ORDERED: PT OWN MED DRAWER 7, Y5N ONE (10:03)
--- NOTE | 2017-11-05 12:12 | PN ---
Progress Note (short form) - Note Progress Note: Renal Follow up Pt seen and examined at the bedside no acute complaints s/p first treatment of dialysis yesterday, tolerated it well w/o issue no cp, sob, abd pain, N/V/D Vital Signs Temperature 99.0 F 11/05/17 09:54 Pulse Rate 75 11/05/17 09:54 Respiratory Rate 18 11/05/17 09:54 Blood Pressure 93/47 11/05/17 09:54 O2 Sat by Pulse Oximetry (%) 99 11/04/17 22:00 Intake & Output 11/02/17 11/03/17 11/04/17 11/05/17 23:59 23:59 23:59 23:59 Intake Total 300 Output Total 300 Balance 0 Weight 76.317 kg NAD RRR, no M/R CTA, no rales or wheeze soft NT/ND, no rebound or guarding No LE edema, no clubbing or cyanosis Left IJ catheter 87 year old gentleman with hx of progressive CKD, urethral strictures requiring catherterization, CAD, Afib on Coumadin, COPD, Prostate Ca s/p radiation Tx, hx of kidney stones now presents with progressive CKD and to initiate hemodialysis. #Progressive CKD now ESRD on HD #Hx of Urethral Strictures/Bladder outlet obstruction #Chronic Anemia #Afib on A/C tolerating first dialysis well for 2nd HD today as inpatient outpatient HD placement in process, should be finalized today Allow pt to self catheterize Continue flomax/torsemide ADRIANA with HD Jacques Esquivel DO
--- NOTE | 2017-11-05 13:36 | DS ---
Physical Examination Vital Signs: Vital Signs Temperature 99.0 F 11/05/17 09:54 Pulse Rate 75 11/05/17 09:54 Respiratory Rate 18 11/05/17 09:54 Blood Pressure 93/47 11/05/17 09:54 O2 Sat by Pulse Oximetry (%) 99 11/04/17 22:00 Findings/Remarks: in bed awake alert NAD VSS afebrile; doing another round of dyalisis now, tolerated OK d/w renal dr Esquivel pt can go home after today's dyalsis d/w CM called dyalsisi center to make sure he is accepted and has f/u with them also will need vascular sx f/u outpt for permanent dyalsis access (has temporary permacath now) d/w pt and dw pt's at bedside meds done as needed t time 40 min Constitutional: Yes: No Distress, Calm Eyes: Yes: Conjunctiva Clear HENT: Yes: Atraumatic Neck: Yes: Supple Cardiovascular: Yes: Regular Rate and Rhythm, Other (L upper chest dyalisis catheter) Respiratory: Yes: CTA Bilaterally Gastrointestinal: Yes: Soft Renal/: No: CVA Tenderness - Left, CVA Tenderness - Right Musculoskeletal: No: Joint Stiffness, Joint Swelling Extremities: No: Cold, Cool, Cyanosis Edema: No Integumentary: No: Rash, Venous Stasis Changes Neurological: Yes: WNL, Alert, Oriented ...Motor Strength: WNL Psychiatric: Yes: WNL, Alert, Oriented. No: Agitated, Suicidal Ideation Labs: CBC, BMP 11/04/17 10:06 11/04/17 10:06 Discharge Summary Reason For Visit: CHRONIC KIDNEY DISEASE Current Active Problems Chronic kidney disease (Acute) Volume overload (Acute) Procedures: Principal: aditted with ARF/CRF for dyalsis Other Procedures: had dyalsis per renal tolerated OK Hospital Course: improved with above tolerated proceudres OK DC william, f/u with renal and vascular sx as advised Condition: Improved - Instructions Diet, Activity, Other Instructions: f/u with PCP in 2-4 weeks dyalsis per renal f/u with renal and vascular surgery RTER if ay fever/chills rash or bleeding from cath Referrals: Enrike Rivero MD [Primary Care Provider] - Alvin,Jacques, MD [Staff Physician] - Disposition: VNS/HOME HEALTH CARE - Home Medications Comprehensive Discharge Medication List: Ambulatory Orders Albuterol Sulfate [Proair Respiclick] 90 mcg IH QID PRN 05/21/16 Allopurinol [Zyloprim -] 100 mg PO DAILY 05/21/16 Ascorbic Acid [Vitamin C] 500 mg PO DAILY 05/21/16 Cholecalciferol (Vitamin D3) [Vitamin D3] 5,000 unit PO Q48H 05/21/16 L.acidoph,Paracasei, B.lactis [Probiotic] 1 each PO DAILY 05/21/16 Methenamine Hippurate [Hiprex [Nf] -] 1 gm PO BID 05/21/16 Metoprolol Tartrate [Lopressor] 50 mg PO TID 05/21/16 Pyridoxine HCl [Vitamin B6] 50 mg PO DAILY 05/21/16 Tamsulosin HCl [Flomax] 0.4 mg PO DAILY 05/21/16 Thiamine HCl [Vitamin B1] 100 mg PO DAILY 05/21/16 Triamcinolone Acetonide [Nasacort] 2 sprays NS DAILY 05/21/16 Ubidecarenone [Coq-10] 100 mg PO DAILY 05/21/16 Vitamin E 400 unit PO DAILY 05/21/16 Acetaminophen [Tylenol .Regular Strength -] 650 mg PO Q6H PRN tablet 07/30/17 Ferrous Sulfate [Feosol] 325 mg PO DAILY ud 07/30/17 Clindamycin HCl 300 mg PO ASDIR PRN 11/04/17 Fluticasone/Vilanterol [Breo Ellipta 200-25 Mcg INH] 1 each IH AM 11/04/17 Multivitamin [Multiple Vitamins] 1 each PO DAILY 11/04/17 Polyethylene Glycol 3350 [Miralax (For Daily Use) -] 17 gm PO HS 11/04/17 Torsemide 100 mg PO DAILY 11/04/17 Warfarin Na [Coumadin -] 4.5 mg PO ASDIR 11/04/17 Warfarin Na [Coumadin] 3 mg PO ASDIR 11/04/17
[2017-11-05] MEDS ORDERED: SODIUM CHLORIDE 250 ML IV PRN (14:03)
[2017-11-05] MEDS ORDERED: EPOETIN ALFA 3,000 UNIT/1 ML ML IVPUSH ONE (14:15)
[2017-11-05] MEDS: ALBUMIN HUMAN 25% 12.5 GM/50 ML VIAL IVPB SCH ×4 (14:25→15:52)
[2017-11-05] MEDS ORDERED: HEPARIN NA (PORCINE) 5,000 UNITS/ML 1ML VIAL IVPUSH ONE (14:45)
[2017-11-05 16:12] VITALS: BP 104/52; PULSE 79; TEMP 97.6
[2017-11-05] MEDS ORDERED: WARFARIN NA 2 MG TABLET (UD) ONE (17:09)
[2017-11-05] MEDS ORDERED: WARFARIN NA 2.5 MG TABLET (FP) ONE (17:09)
[2017-11-05] MEDS ORDERED: WARFARIN NA 2.5 MG, WARFARIN NA 2 MG PO SCH (18:00)
[2017-11-07 00:07] LABS: HBSAG SCREEN Negative (Negative); HEP A AB, IGM Negative (Negative); HEP B CORE AB, TOT Negative (Negative)
== END 2017-11-05 18:24 | disposition home health service (06) | DRG 682 ==
LOC: JER 08:09 → JERBED 10:05 → J6S 15:52
PROVIDERS: ADMIT Internal Medicine; ATTEND Internal Medicine
PROC: 5A1D70Z Performance of Urinary Filtration, Intermittent, Less than 6 Hours Per Day (ICD-10-PCS; principal; 2017-11-04)
PROC: 5A1D70Z Performance of Urinary Filtration, Intermittent, Less than 6 Hours Per Day (ICD-10-PCS; 2017-11-05)
DX: I12.0 Hypertensive chronic kidney disease with stage 5 chronic kidney disease or end stage renal disease (principal); N18.6 End stage renal disease; N17.9 Acute kidney failure, unspecified; J44.9 Chronic obstructive pulmonary disease, unspecified; I25.10 Atherosclerotic heart disease of native coronary artery without angina pectoris; I48.91 Unspecified atrial fibrillation; K57.90 Diverticulosis of intestine, part unspecified, without perforation or abscess without bleeding; E78.5 Hyperlipidemia, unspecified; K40.90 Unilateral inguinal hernia, without obstruction or gangrene, not specified as recurrent; N40.0 Benign prostatic hyperplasia without lower urinary tract symptoms; N35.9 Urethral stricture, unspecified; Z96.642 Presence of left artificial hip joint; Z87.891 Personal history of nicotine dependence; Z96.652 Presence of left artificial knee joint; Z85.46 Personal history of malignant neoplasm of prostate; Z87.442 Personal history of urinary calculi; Z95.0 Presence of cardiac pacemaker; Z99.2 Dependence on renal dialysis
CPT/HCPCS: 36415; 71045-TC-FY; 80053; 83735; 84100; 85025; 85610; 85730; 86704; 86706; 86708; 86803; 86850; 86900; 86901; 87086; 87186; 87340; 87350; 93005; 93010; 99285-25; J0885; J1644; P9047

== ENCOUNTER 2017-11-12 05:18 | Day surgery (SDC) | payer OTHER, BC ==
[2017-11-06 14:18] VITALS: BMI 27.7
--- NOTE | 2017-11-12 08:26 | HP ---
History & Physical Update - History History: No Change - Physical Physical: No Change - Assessment Assessment: No Change - Plan Plan: No Change (Here today for schedule GABBY ANDERSON. H&P is located in patient's paper chart. No new medications or complaints.)
[2017-11-12] MEDS ORDERED: HEPARIN NA (PORCINE) 5,000 UNITS/ML 1ML VIAL ONE (08:39)
[2017-11-12] MEDS ORDERED: PAPAVERINE HCL 30 MG/1 ML 10 ML VIAL NR ONE (08:56)
[2017-11-12] MEDS ORDERED: ONDANSETRON 4 MG/2 ML VIAL IVPUSH PRN (09:42)
[2017-11-12] MEDS ORDERED: PROMETHAZINE HCL 25 MG/1 ML VIAL IVPUSH PRN (09:42)
[2017-11-12] MEDS ORDERED: SODIUM CHLORIDE 1,000 ML IV SCH (09:45)
[2017-11-12] MEDS ORDERED: MIDAZOLAM HCL 2 MG/2 ML SINGLE DOSE VIAL ONE ×2 (09:56→10:15)
[2017-11-12] MEDS ORDERED: PROPOFOL 20 ML ONE (09:56)
[2017-11-12] MEDS ORDERED: LIDOCAINE HCL 1%, 10 MG/ML (50 mL VIAL) IJ ONE (10:28)
[2017-11-12] MEDS ORDERED: POVIDONE-IODINE OINTMENT 10% - 28.4 GM TUBE ONE (10:34)
--- NOTE | 2017-11-12 11:32 | OP ---
Operative Note - Note: Operative Date: 11/12/17 Pre-Operative Diagnosis: ESRD on HD Operation: Creation AV fistula right arm Findings: Patent cephalic vein and brachial artery Post-Operative Diagnosis: Same as Pre-op Surgeon: Yuval Thompson [employer] Worker: Geo Ochoa Anesthesiologist/PURCHASING CLERK: Андрей Cox Anesthesia: Fractional Estimated Blood Loss (mls): 10 Operative Report Dictated: Yes
--- NOTE | 2017-11-12 11:41 | SURG ---
Surgery Doctor Of Nurse Anesthesia Note Doctor Of Nurse Anesthesia: Geo Ochoa PA-C Date of Service: 11/12/17 Diagnosis: ESRD Procedure: Creation AV fistula right arm I was present for the entirety of the operative procedure. For further detail, please refer to operative report. Visit type - Case Type Case Type: Scheduled - New patient This patient is new to me today: Yes Date on this admission: 11/12/17
--- NOTE | 2017-11-12 12:16 | OP ---
DATE OF OPERATION: 11/12/2017 SURGEON: Yuval Livingston MD ACCESS RN: IGGY Mejias PROCEDURE: Creation arteriovenous fistula, left arm. PREOPERATIVE DIAGNOSIS: End-stage renal disease on hemodialysis. POSTOPERATIVE DIAGNOSIS: End-stage renal disease on hemodialysis. ANESTHESIA: Fractional. ANESTHESIOLOGIST: Андрей Cox MD OPERATIVE FINDINGS: The antecubital portion of the cephalic vein was patent. The brachial artery was patent. OPERATIVE PROCEDURE: Following routine patient identification with site and side verification, intravenous sedation was established. The right arm was prepped with ChloraPrep. A time-out was performed. Then 1% lidocaine was infiltrated in the antecubital fossa. Longitudinal skin incision was made, and the antecubital portion of the vein was mobilized. It was ligated distally. It was incised and stented with heparin Papaverine solution. No. 5 and No. 8 feeding tubes were passed proximally without resistance. The vein was filled with heparin solution and was occluded with a small Bulldog clamp. The vein was fully immobilized for the length of the incision. Small side branches were ligated with silk ties and divided. The wound was then deepened through the muscle fascia. The brachial artery was mobilized and secured with Vessel Loops. Side branches were ligated and divided. The artery was occluded with the Vessel Loops and opened on exposed surface with a 6-mm arteriotomy. The end of the vein was spatulated and anastomosed to the side of the artery with a running suture of 6-0 Prolene. The arteries were allowed to back bleed, and the vein was flushed with heparin solution. Suture line was completed, and all vessels were released. There was good flow through the anastomosis with a palpable thrill in the proximal vein. Bleeding from the suture line was controlled with Surgicel. When hemostasis was adequate, the wound was closed with interrupted suture of 3-0 Vicryl on the subcutaneous tissues and then skin jennifer. Sterile dressings were applied, and the patient was taken to the recovery room in stable condition. YUVAL LIVINGSTON M.D. [id number]
[2017-11-12 14:17] VITALS: BP 81/50; PULSE 66; TEMP 97.5
== END 2017-11-12 14:30 | disposition home or self-care (01) ==
LOC: JASU-SURG 05:18
PROVIDERS: ATTEND Surgery
PROC: 03180ZD Bypass Left Brachial Artery to Upper Arm Vein, Open Approach (ICD-10-PCS; principal; 2017-11-12 10:00)
DX: I12.0 Hypertensive chronic kidney disease with stage 5 chronic kidney disease or end stage renal disease (principal); I25.10 Atherosclerotic heart disease of native coronary artery without angina pectoris; I48.2 Chronic atrial fibrillation; Z79.01 Long term (current) use of anticoagulants; Z99.2 Dependence on renal dialysis; N18.6 End stage renal disease
CPT/HCPCS: 36415; 84132; 94760; J1644

== ENCOUNTER 2018-05-18 14:52 | Inpatient (IN) | payer OTHER, BC ==
[2018-05-18 15:06] VITALS: BMI 28.4
--- NOTE | 2018-05-18 15:58 | PDOC ---
History of Present Illness - General Chief Complaint: Headache Stated Complaint: SENT BY PCP Time Seen by Provider: 05/18/18 15:53 History Source: Patient Exam Limitations: No Limitations - History of Present Illness Initial Comments: 05/18/18 15:54 [id number] with h/o ESRD (on HD MWF without recent missed treatments, followed by Rachel Franz), urethral stricture (self-catheterization ever 3-4 days), CAD, AFib (s/p pacemaker, on Coumadin), COPD, diverticulosis, prostate CA (s/p radiation seed implantation), kidney stones with subsequent damage to left kidney, and hyperlipidemia who finished his normal HD treatment today but subsequently became very tremulous, dizzy, and had a headache in the HD clinic. His SpO2 was 98%, temp was 96.8, HR was 106, and BP was 125/66 at that time. Family notes that this tends to happen when he has a UTI. The family notes that the patent's PCP Dr. Jones has treated him for UTI in the past but does not always opt to treat his bacteruria because he is colonized. Past History - Past Medical History Allergies/Adverse Reactions: Allergies Allergy/AdvReac Type Severity Reaction Status Date / Time azithromycin AdvReac Intermediate HEADACHE Verified 05/18/18 15:06 Home Medications: Ambulatory Orders Albuterol Sulfate [Proair Respiclick] 90 mcg IH QID PRN 05/21/16 Allopurinol [Zyloprim -] 100 mg PO DAILY 05/21/16 L.acidoph,Paracasei, B.lactis [Probiotic] 1 each PO DAILY 05/21/16 Methenamine Hippurate [Hiprex [Nf] -] 1 gm PO BID 05/21/16 Metoprolol Tartrate [Lopressor] 50 mg PO BID 05/21/16 Tamsulosin HCl [Flomax] 0.4 mg PO DAILY 05/21/16 Triamcinolone Acetonide [Nasacort] 2 sprays NS DAILY 05/21/16 Fluticasone/Vilanterol [Breo Ellipta 200-25 Mcg INH] 1 each IH AM 11/04/17 Polyethylene Glycol 3350 [Miralax 119 gm Btl -] 17 gm PO HS PRN 11/04/17 Torsemide 50 mg PO DAILY 11/04/17 Warfarin Na [Coumadin -] 3 mg PO ASDIR 11/04/17 Warfarin Na [Coumadin -] 4.5 mg PO ASDIR 11/04/17 Acetaminophen [Tylenol .Regular Strength -] 500 mg PO Q6H PRN 11/06/17 Acetaminophen W/ Codeine #3 [Tylenol # 3 -] 1 tab PO Q6H PRN #20 tablet MDD 4 Folic Acid/Vit B Complex and C [Joycelyn-Dustin Tablet] 0.8 mg PO DAILY 05/18/18 Anemia: No Cancer: Yes (SKIN CA, PROSTATE) Cardiac Disorders: Yes (a.fib) COPD: Yes DVT: No Dialysis: Yes (M,W,F R ARM FISTULA) GI Disorders: Yes (DIVERTICULITIS) Disorders: Yes (NON FUNCTIONING LEFT KIDNEY) HTN: Yes Hypercholesterolemia: Yes (DIET CONTROLLED) Other medical history: SELF CATHS - Surgical History Abdominal Surgery: (FISSURES, HERNIA) Appendectomy: Yes Cardiac Surgery: (PACEMAKER) Cholecystectomy: Yes Orthopedic Surgery: Yes (TOTAL L KNEE REPLACEMENT-2001,TOTAL LEFT HIP REPLACEMENT-2003) - Immunization History Immunization Up to Date: Yes - Suicide/Smoking/Psychosocial Hx Smoking Status: Yes Smoking History: Former smoker Have you smoked in the past 12 months: No Number of Cigarettes Smoked Daily: 0 If you are a former smoker, when did you quit?: 40 YEARS AGO Cigars Per Day: 0 Information on smoking cessation initiated: No Hx Alcohol Use: No Drug/Substance Use Hx: No Substance Use Type: None Hx Substance Use Treatment: No Review of Systems - Review of Systems Able to Perform ROS?: Yes Comments:: 05/18/18 16:10 GEN: generalized weakness, no fever, chills, malaise, or weight change HEENT: no ear pain, sore throat, vision change, or eye pain CV: lightheadedness, no chest pain, palpitations, syncope, or edema RESP: no cough, wheezing, or SOB GI: no abdominal pain, nausea, vomiting, diarrhea, constipation, or white/black/ bloody stool : no dysuria, hematuria, incontinence, retention, bleeding, or discharge MSK: no neck/back pain, muscle weakness/pain, or joint swelling/pain NEURO: headache, no seizure, vertigo, numbness, tingling, or focal weakness PSYCH: no substance use, no behavior change SKIN: no jaundice, no rash ROS otherwise negative except as noted in HPI *Physical Exam - Vital Signs Last Vital Signs Temp Pulse Resp BP Pulse Ox 97.7 F 98 H 20 111/61 98 05/18/18 14:58 05/18/18 14:58 05/18/18 14:58 05/18/18 14:58 05/18/18 14:58 - Physical Exam Comments: 05/18/18 16:11 GENERAL: well-appearing, slightly anxious, A/Ox4, no distress, answers questions appropriately, accompanied by HEENT: PERRLA, EOMI, moist mucous membranes NECK/BACK: no midline ttp, no spinal stepoff or deformity, no hematoma, full ROM , neck supple CARDIOVASCULAR: HD fistula RUE with good bruit and thrill, regular rate/rhythm, normal S1S2, no MGR, strong peripheral pulses, capillary refill <2 seconds, extremities wwp, no edema LUNGS/RESPIRATORY: no respiratory distress, CTAB GI/ABDOMEN: symmetric [id number], normoactive BS, soft, no ttp, no midline pulsatile masses : no CVA tenderness EXTREMITIES: no muscle atrophy, no acute deformity, L>R knee swelling stated chronic 2/2 osteoarthritis, no skin changes, no palpable cord or calf swelling/ tenderness SKIN: warm and dry, no pallor, no jaundice, no rash, no bruising, no skin breakdown, no cuts, no lesions NEUROLOGICAL: GCS 15, CN II-XII grossly intact, 5/5 strength proximally and distally, no facial droop Heart Score/ECG Review #1 05/18/18 17:04 A-fib, rate of 94, left axis deviation, normal QRS duration and QT interval, no DANIEL ED Treatment Course - LABORATORY CBC & Chemistry Diagram: 05/19/18 07:38 05/19/18 07:38 Medical Decision Making - Medical Decision Making [id number] with ESRD on HD p/w VIZCARRA/lightheadedness/weakness/shakes after HD similar to prior UTI. Initial Vital Signs Temp Pulse Resp BP Pulse Ox 97.7 F 98 H 20 111/61 98 05/18/18 14:58 05/18/18 14:58 05/18/18 14:58 05/18/18 14:58 05/18/18 14:58 Exam: As noted in Physical Exam section. DDX IBNLT: pre-syncope (especially orthostatic 2/2 fluid shifts or volume depletion in the setting of HD, or hemorrhage/vomiting/diarrhea/diuretics; or medications), neurocardiogenic e.g. vasovagal; situational e.g. micturition/post -tussive/post-exercise; carotid sinus hypersensitivity), cardiovascular (e.g. arrhythmia, structural heart disease, TX, PE, etc), spinal cord injury/DM neuropathy/Parkinsons), or other causes not true syncope d/t subsequent neuro deficit (TIA/CVA, SAH, seizure, metabolic/electrolyte derangement, infection/ sepsis/vitals abnormalities, etc. W/U ordered: Labs as noted below, EKG, CXR. TX ordered: [facility] EKG: Reviewed; results as noted in ECG Review section. RAD/CHEST X-RAY PORTABLE* AP portable chest: Lightheadedness Single AP view of the chest is been submitted. Since 02/13/2018 the right line has been removed. The pacemaker with prominent mediastinum and clear lungs persist. Remainder of the study is unchanged. Correlation recommended. Laboratory Tests 05/18/18 05/18/18 05/18/18 16:14 16:14 16:14 WBC 11.4 H RBC 4.38 Hgb 13.5 Hct 38.6 MCV 88.1 MCH 30.8 MCHC 34.9 RDW 15.6 Plt Count 128 L MPV 9.2 Absolute Neuts (auto) 8.4 H Neutrophils % 73.5 Neutrophils % (Manual) 66.0 Band Neutrophils % 2.0 Lymphocytes % 8.8 D Lymphocytes % (Manual) 19.0 D Monocytes % 17.3 H Monocytes % (Manual) 9 Eosinophils % 0.2 D Eosinophils % (Manual) 1.0 Basophils % 0.2 Basophils % (Manual) 0.0 Nucleated RBC % 0 Platelet Estimate Decreased Platelet Comment No clumping noted Sodium 136 Potassium 3.2 L Chloride 100 Carbon Dioxide 26 Anion Gap 10 BUN 19 H Creatinine 2.3 H Creat Clearance w eGFR 27.03 Random Glucose 95 Calcium 8.9 Total Bilirubin 0.6 AST 12 L ALT 18 Alkaline Phosphatase 115 Troponin I < 0.02 Total Protein 7.1 Albumin 3.8 Urine Color Urine Appearance Urine pH Ur Specific [place] Urine Protein Urine Glucose (UA) Urine Ketones Urine Blood Urine Nitrite Urine Bilirubin Urine Urobilinogen Ur Leukocyte Esterase Urine WBC (Auto) Urine RBC (Auto) Urine Casts (Auto) U Pathogenic Cast Auto U Epithel Cells (Auto) Urine Bacteria (Auto) Urine Yeast (Auto) Influenza A (Rapid) Negative Influenza B (Rapid) Negative 05/18/18 17:14 WBC RBC Hgb Hct MCV MCH MCHC RDW Plt Count MPV Absolute Neuts (auto) Neutrophils % Neutrophils % (Manual) Band Neutrophils % Lymphocytes % Lymphocytes % (Manual) Monocytes % Monocytes % (Manual) Eosinophils % Eosinophils % (Manual) Basophils % Basophils % (Manual) Nucleated RBC % Platelet Estimate Platelet Comment Sodium Potassium Chloride Carbon Dioxide Anion Gap BUN Creatinine Creat Clearance w eGFR Random Glucose Calcium Total Bilirubin AST ALT Alkaline Phosphatase Troponin I Total Protein Albumin Urine Color Yellow Urine Appearance Turbid Urine pH 8.5 H D Ur Specific [place] 1.012 Urine Protein 2+ H Urine Glucose (UA) Negative Urine Ketones Negative Urine Blood 2+ H Urine Nitrite Negative Urine Bilirubin Negative Urine Urobilinogen 0.2 Ur Leukocyte Esterase 3+ H Urine WBC (Auto) 4271 Urine RBC (Auto) 96.3 Urine Casts (Auto) 146 U Pathogenic Cast Auto None seen U Epithel Cells (Auto) 5.7 Urine Bacteria (Auto) 492.354 Urine Yeast (Auto) None seen Influenza A (Rapid) Influenza B (Rapid) 05/18/18 17:53 Patient has UTI and abx ordered (meropenem based on prior C&S). The Pt is unsafe for discharge at this time. They require further hospital observation, workup, and treatment. Call placed to Dr. Rivero for admission. Blank Decision to Admit order is placed per ED protocol. I spoke with Dr. Rivero and in agreement the patient is to be admitted. Decision to Admit order is corrected. *DC/Admit/Observation/Transfer Diagnosis at time of Disposition: Sepsis Qualifiers: Sepsis type: sepsis due to unspecified organism Qualified Code(s): A41.9 - Sepsis, unspecified organism UTI (urinary tract infection) Qualifiers: Urinary tract infection type: acute cystitis Hematuria presence: without hematuria Qualified Code(s): N30.00 - Acute cystitis without hematuria Headache Qualifiers: Headache type: unspecified Headache chronicity pattern: acute headache Intractability: not intractable Qualified Code(s): R51 - Headache - Discharge Dispostion Condition at time of disposition: Guarded Decision to Admit order: Yes - Referrals - Patient Instructions - Post Discharge Activity
[2018-05-18] MEDS ORDERED: ACETAMINOPHEN 1000 MG/100 ML VIAL (NON FORMULARY) IVPB ONE (16:05)
[2018-05-18] MEDS ORDERED: ACETAMINOPHEN INJECTION 100 ML IVPB ONE (16:20)
[2018-05-18 16:50] LABS: BASO % 0.2 % (0-2.0); EOS % 0.2 % (0-4.5); HEMATOCRIT 38.6 % (35.4-49); HEMOGLOBIN 13.5 GM/dL (11.7-16.9); LYMPH % 8.8 % (8-40); MCH 30.8 pg (25.7-33.7); MCHC 34.9 g/dl (32.0-35.9); MEAN CELL VOLUME 88.1 fl (80-96); MEAN PLT VOLUME 9.2 fl (7.5-11.1); MONO % 17.3 % (3.8-10.2); NEUT % 73.5 % (42.8-82.8); PLATELET COUNT 128 K/MM3 (134-434); RBC 4.38 M/mm3 (4.00-5.60); RDW 15.6 % (11.9-15.9); WHITE BLOOD COUNT 11.4 K/mm3 (4.0-10.0)
[2018-05-18 17:32] LABS: ALBUMIN 3.8 g/dl (3.4-5.0); ALK PHOS 115 U/L (45-117); ANION GAP 10 MMOL/L (8-16); BILIRUBIN,TOTAL 0.6 mg/dL (0.2-1); BLOOD UREA NITROGEN 19 mg/dL (7-18); CALCIUM 8.9 mg/dL (8.5-10.1); CHLORIDE 100 mmol/L (98-107); CO2 26 mmol/L (21-32); CREATININE 2.3 mg/dL (0.55-1.3); GLUCOSE,RANDOM 95 mg/dL (74-106); POTASSIUM 3.2 mmol/L (3.5-5.1); SGOT/AST 12 U/L (15-37); SGPT/ALT 18 U/L (13-61); SODIUM 136 mmol/L (136-145); TOT PROT 7.1 g/dl (6.4-8.2)
[2018-05-18 17:32] LABS: EPI CELLS 5.7 /HPF (0-5); HYALINE CASTS 146 /hpf (0-8); PH,URINE 8.5 (5.0-8.0); URINE APPEARANCE TURBID; URINE BACTERIA 492.354 /hpf (NEGATIVE); URINE BILIRUBIN NEGATIVE (NEGATIVE); URINE COLOR YELLOW; URINE GLUCOSE (UA) NEGATIVE (NEGATIVE); URINE KETONE NEGATIVE (NEGATIVE); URINE LEUK ESTERASE 3+ (NEGATIVE); URINE NITRITE NEGATIVE (NEGATIVE); URINE PROTEIN 2+ (NEGATIVE); URINE UROBILINOGEN 0.2 mg/dL (0.2-1.0); URINE WBC 4271 /hpf (0-5)
[2018-05-18] MEDS ORDERED: SODIUM CHLORIDE 0.9% 500 ML INFUS.BAG IV ONE (17:49)
[2018-05-18] MEDS ORDERED: MEROPENEM 500 MG in DEXTROSE 5%-WATER 100 ML IVPB ONE (17:49)
[2018-05-18 18:12] LABS: URINE RBC 96.3 /hpf (0-4)
[2018-05-18 18:14] LABS: YEAST NONE SEEN (NEGATIVE)
[2018-05-18 18:46] LABS: PLATELET ESTIMATE DECREASED
--- NOTE | 2018-05-18 18:50 | PDOC ---
Attending Attestation - Resident Resident Name: Dunbar,Olinda - ED Attending Attestation I have performed the following: I have examined & evaluated the patient, The case was reviewed & discussed with the resident, I agree w/resident's findings & plan - HPI HPI: 05/18/18 18:44 [id number] with h/o ESRD (on HD MWF without recent missed treatments, followed by Rachel Franz), urethral stricture (self-catheterization ever 3-4 days), CAD, AFib (s/p pacemaker, on Coumadin), COPD, diverticulosis, prostate CA (s/p radiation seed implantation), kidney stones with subsequent damage to left kidney, and hyperlipidemia who finished his normal HD treatment today but subsequently became very tremulous, chills/rigors, dizzy, and had a headache in the HD clinic. His SpO2 was 98%, temp was 96.8, HR was 106, and BP was 125/66 at that time. Family notes similar episodes previously with UTI. The family notes that the patent's PCP Dr. Jones has treated him for UTI in the past but does not always opt to treat his bacteruria because he is colonized. - Physicial Exam PE: 05/18/18 18:45 NAD, well appearing, PERRL, EOMI, MMM, nl conjunctiva, anicteric; neck supple. lungs clear, RRR, abdomen soft nontender. JERONIMO x4, no focal neuro deficits. No peripheral edema. normal color for ethnicity, WWP. - Medical Decision Making 05/18/18 18:46 See HPI for details Vital signs reviewed, +fever noted rectally. BP borderline/soft, likely from dysequilibrium post HD> Prior notes reviewed, including admissions, discharges and consultations. laboratory results and imaging reviewed, basic labs and lytes wnl, notable for mild leukocytosis. +hypokalemia. UA_grossly abnormal, correlating with infection cr at baseline ~2.3 trop neg no e/o ischemia. EKG normal sinus rhythm, no interval abnormalities, narrow QRS, ST and T wave segments and morphology normal. Nonspecific T wave abnormalities ED course - tylenol for fever, finished dialysis and normal lytes except for low potassium , which was repleted - IV meropenem, based on prior urine cultures +Pseudomonas - gentle IVF hydration given he is on dialysis. avoiding fluid OD. admit to Dr Rivero for UTI, sepsis and medical management. 05/18/18 21:52 05/18/18 21:53 05/18/18 21:54
[2018-05-18] MEDS ORDERED: POTASSIUM CHLORIDE TABS 20 MEQ TABLET.ER (FP) PO ONE (18:51)
[2018-05-18] MEDS ORDERED: ACETAMINOPHEN 500 MG TABLET (FP) PO PRN (19:35)
[2018-05-18] MEDS ORDERED: ALBUTEROL SO4 8 GM HFA INHALER IH PRN (19:35)
--- NOTE | 2018-05-18 19:44 | HP ---
Admitting History and Physical - Primary Care Physician PCP: Enrike Rivero - Admission Chief Complaint: Chills, Weakness, fever History of Present Illness: Pt had HD this AM. During HD pt started to have chills and felt flushed. After HD pt was very weak, barely could walk and came to ER. In ER he was found to have fever, leukocytosis, abnormal urine (pt dribble secondary to urinary retention, occasionally voids; every 2-3 days self cath) History Source: Patient, Family Member (ex- (at bedside)) - Past Medical History Cardiovascular: Yes: AFIB (on AC), CAD, HTN, Hyperlipdemia, Other (SSS with PPM) Pulmonary: Yes: COPD Renal/: Yes: BPH, Cancer (prostate), Renal Calculi, Other (urinary incontinence) Heme/Onc: Yes: Cancer (prostate) - Past Surgical History Past Surgical History: Yes: Appendectomy, Hernia Repair, Joint Replacement - Smoking History Smoking history: Former smoker Have you smoked in the past 12 months: No Aproximately how many cigarettes per day: 0 If you are a former smoker, when did you quit?: 40 YEARS AGO - Alcohol/Substance Use Hx Alcohol Use: No History of Substance Use: reports: None - Social History ADL: Independent History of Recent Travel: No Home Medications - Allergies Allergies/Adverse Reactions: Allergies Allergy/AdvReac Type Severity Reaction Status Date / Time azithromycin AdvReac Intermediate HEADACHE Verified 05/18/18 15:06 - Home Medications Home Medications: Ambulatory Orders Albuterol Sulfate [Proair Respiclick] 90 mcg IH QID PRN 05/21/16 Allopurinol [Zyloprim -] 100 mg PO DAILY 05/21/16 L.acidoph,Paracasei, B.lactis [Probiotic] 1 each PO DAILY 05/21/16 Methenamine Hippurate [Hiprex [Nf] -] 1 gm PO BID 05/21/16 Metoprolol Tartrate [Lopressor] 50 mg PO BID 05/21/16 Tamsulosin HCl [Flomax] 0.4 mg PO DAILY 05/21/16 Triamcinolone Acetonide [Nasacort] 2 sprays NS DAILY 05/21/16 Fluticasone/Vilanterol [Breo Ellipta 200-25 Mcg INH] 1 each IH AM 11/04/17 Polyethylene Glycol 3350 [Miralax 119 gm Btl -] 17 gm PO HS PRN 11/04/17 Torsemide 50 mg PO DAILY 11/04/17 Warfarin Na [Coumadin -] 3 mg PO ASDIR 11/04/17 Warfarin Na [Coumadin -] 4.5 mg PO ASDIR 11/04/17 Acetaminophen [Tylenol .Regular Strength -] 500 mg PO Q6H PRN 11/06/17 Acetaminophen W/ Codeine #3 [Tylenol # 3 -] 1 tab PO Q6H PRN #20 tablet MDD 4 Folic Acid/Vit B Complex and C [Joycelyn-Dustin Tablet] 0.8 mg PO DAILY 05/18/18 Review of Systems - Review of Systems Constitutional: reports: Chills, Fever. denies: Loss of Appetite Eyes: denies: Blurred Vision, Photophobia HENT: denies: Difficult Swallowing, Ear Discharge, Ear Pain, Nasal Congestion, Throat Pain Neck: reports: Tenderness (Old, secondary to OA). denies: Decreased ROM, Pain on Movement, Stiffness Cardiovascular: denies: Chest Pain, Edema, Palpitations Respiratory: denies: Cough, SOB on Exertion, Wheezing Gastrointestinal: denies: Abdominal Pain, Diarrhea, Nausea, Vomiting Genitourinary: reports: Incontinence (old). denies: Burning, Dysuria Musculoskeletal: reports: Muscle Weakness. denies: Back Pain, Muscle Pain Integumentary: reports: Bruising (left leg, above the knee) Neurological: reports: Weakness. denies: Change in LOC, Change in Speech, Numbness, Parasthesia Endocrine: denies: Excessive Sweating, Intolerance to Cold Hematology/Lymphatic: reports: Easily Bruised (on AC), Excessive Bleeding (on AC ) Psychiatric: denies: Anxiety, Depression Physical Examination Vital Signs: Vital Signs Temperature 102.2 F H 05/18/18 17:48 Pulse Rate 98 H 05/18/18 14:58 Respiratory Rate 20 05/18/18 14:58 Blood Pressure 92/49 L 05/18/18 18:20 O2 Sat by Pulse Oximetry (%) 98 05/18/18 15:06 Constitutional: Yes: No Distress, Calm Eyes: Yes: EOM Intact, PERRL HENT: No: Nasal Congestion, Pharyngeal Erythema, Rhinnorhea Neck: Yes: Trachea Midline. No: Lymphadenopathy, Tenderness Cardiovascular: Yes: Pulse Irregular, S1, S2 Respiratory: Yes: Regular, Other (coarse BS bilateraly). No: Rales, Rhonchi Gastrointestinal: Yes: Normal Bowel Sounds, Soft. No: Hepatomegaly, Palpable Mass, Tenderness ...Rectal Exam: Yes: Deferred Renal/: No: CVA Tenderness - Left, CVA Tenderness - Right Musculoskeletal: No: Back Pain, Joint Stiffness, Joint Swelling Edema: No Neurological: Yes: Alert, Oriented, Other (motor and sensory is symmetric in UE / LE/ face) Psychiatric: Yes: Alert, Oriented Labs: CBC, BMP 05/18/18 16:14 05/18/18 16:14 Imaging - Results Chest X-ray: Image Reviewed Problem List - Problems (1) Urinary tract infection Code(s): N39.0 - URINARY TRACT INFECTION, SITE NOT SPECIFIED Qualifiers: Urinary tract infection type: acute cystitis Hematuria presence: without hematuria Qualified Code(s): N30.00 - Acute cystitis without hematuria (2) Sepsis Code(s): A41.9 - SEPSIS, UNSPECIFIED ORGANISM Qualifiers: Sepsis type: sepsis due to unspecified organism Qualified Code(s): A41.9 - Sepsis, unspecified organism (3) ESRD (end stage renal disease) on dialysis Code(s): N18.6 - END STAGE RENAL DISEASE; Z99.2 - DEPENDENCE ON RENAL DIALYSIS (4) Urinary retention Code(s): R33.9 - RETENTION OF URINE, UNSPECIFIED (5) A-fib Code(s): I48.91 - UNSPECIFIED ATRIAL FIBRILLATION Qualifiers: Atrial fibrillation type: permanent Qualified Code(s): I48.2 - Chronic atrial fibrillation (6) CAD (coronary artery disease) Code(s): I25.10 - ATHSCL HEART DISEASE OF [place] CORONARY ARTERY W/O ANG PCTRS Assessment/Plan IV abtx; to titrate to ESRD on HD (pt had HD today) Resend UCX from straight cath ID consult Renal consult To f/u BCX, UCX AM labs
[2018-05-18] MEDS: CHOLECALCIFEROL (VIT D3) 1,000 UNIT (25 MCG) TABLET PO SCH (20:47)
[2018-05-19 08:26] LABS: BASO % 0.4 % (0-2.0); EOS % 0.3 % (0-4.5); HEMATOCRIT 32.7 % (35.4-49); HEMOGLOBIN 11.4 GM/dL (11.7-16.9); LYMPH % 11.8 % (8-40); MCH 30.8 pg (25.7-33.7); MCHC 34.9 g/dl (32.0-35.9); MONO % 31.1 % (3.8-10.2); NEUT % 56.4 % (42.8-82.8); PLATELET COUNT 106 K/MM3 (134-434); RBC 3.72 M/mm3 (4.00-5.60); RDW 15.9 % (11.9-15.9); WHITE BLOOD COUNT 10.1 K/mm3 (4.0-10.0)
[2018-05-19 08:32] LABS: INR 1.69 (0.83-1.09)
--- NOTE | 2018-05-19 08:44 | PN ---
Progress Note, Physician Chief Complaint: in bed awake alert NAD afebrile today but had some fever yesterday, no dysuria no chills HD 3d/w - Current Medication List Current Medications: Active Medications Acetaminophen (Tylenol -) 500 mg PO Q6H PRN PRN Reason: PAIN LEVEL 1-5 Last Admin: 05/18/18 23:22 Dose: 500 mg Albuterol Sulfate (Ventolin Hfa Inhaler -) 2 puff IH Q6H PRN PRN Reason: SHORTNESS OF BREATH Allopurinol (Zyloprim -) 100 mg PO DAILY [facility] Ascorbic Acid (Vitamin C -) 500 mg PO DAILY [facility] Cholecalciferol (Vitamin D3 -) 5,000 unit PO Q2D@1000 [facility] Last Admin: 05/18/18 20:47 Dose: Not Given Ferrous Sulfate (Feosol -) 325 mg PO DAILY [facility] Lactobacillus Acidophilus (Bacid -) 1 tab PO DAILY [facility] Non-Formulary Medication (Fluticasone/Vilanterol [Breo Ellipta 200-25 Mcg Inh]) 1 each IH AM [facility] Non-Formulary Medication (Methenamine Hippurate) 1 gm PO BID [facility] - Objective Vital Signs: Vital Signs Temperature 98.4 F 05/19/18 05:41 Pulse Rate 95 H 05/19/18 05:41 Respiratory Rate 20 05/19/18 06:48 Blood Pressure 118/73 05/19/18 05:41 O2 Sat by Pulse Oximetry (%) 97 05/19/18 06:48 Constitutional: Yes: No Distress, Calm Eyes: Yes: Conjunctiva Clear HENT: Yes: Atraumatic Neck: Yes: Supple Cardiovascular: Yes: Regular Rate and Rhythm Respiratory: Yes: CTA Bilaterally Gastrointestinal: Yes: Soft. No: Tenderness Genitourinary: No: CVA Tenderness - Left, CVA Tenderness - Right, Hematuria Musculoskeletal: No: Joint Stiffness, Joint Swelling Extremities: No: Cold, Cool, Cyanosis Edema: No Integumentary: No: Rash, Venous Stasis Changes Neurological: Yes: WNL, Alert, Oriented ...Motor Strength: WNL Psychiatric: Yes: WNL, Alert, Oriented. No: Agitated, Suicidal Ideation Labs: INR, PTT INR 1.69 (0.83-1.09) H 05/19/18 07:38 - ....Imaging Other: Report Reviewed Assessment/Plan [id number] with h/o ESRD (on HD MWF without recent missed treatments, followed by Rachel Franz), urethral stricture (self-catheterization ever 3-4 days), CAD, AFib (s/p pacemaker, on Coumadin), COPD, diverticulosis, prostate CA (s/p radiation seed implantation), kidney stones with subsequent damage to left kidney, and hyperlipidemia, ESRD/ HD admitted with fever r/o UTI / sepsis IV ATB per ID HD per renal falls decubs DVT PFX
[2018-05-19 08:48] LABS: ALK PHOS 94 U/L (45-117); ANION GAP 10 MMOL/L (8-16); BILIRUBIN,TOTAL 0.6 mg/dL (0.2-1); BLOOD UREA NITROGEN 24 mg/dL (7-18); CALCIUM 7.8 mg/dL (8.5-10.1); CHLORIDE 102 mmol/L (98-107); CO2 24 mmol/L (21-32); CREATININE 3.5 mg/dL (0.55-1.3); GLUCOSE,RANDOM 88 mg/dL (74-106); POTASSIUM 3.1 mmol/L (3.5-5.1); SGOT/AST 9 U/L (15-37); SGPT/ALT 13 U/L (13-61); SODIUM 135 mmol/L (136-145); TOT PROT 5.7 g/dl (6.4-8.2)
--- NOTE | 2018-05-19 09:21 | EKG ---
Test Reason : Blood Pressure : / mmHG Vent. Rate : 094 BPM Atrial Rate : 088 BPM P-R Int : 000 ms QRS Dur : 076 ms QT Int : 350 ms P-R-T Axes : 000 -68 -22 degrees QTc Int : 437 ms ATRIAL FIBRILLATION LEFT AXIS DEVIATION ABNORMAL ECG WHEN COMPARED WITH ECG OF 04-NOV-2017 09:47, NO SIGNIFICANT CHANGE WAS FOUND Confirmed by OTTO SHIELDS MD ([id number]) on 05/19/2018 9:21:07 AM Referred By: Confirmed By:OTTO SHIELDS MD
[2018-05-19] MEDS: ALLOPURINOL 100 MG TABLET (FP) PO SCH (09:41)
[2018-05-19] MEDS: FERROUS SO4 325 MG TABLET (FP) PO SCH (09:41)
[2018-05-19] MEDS: LACTOBACILLUS ACIDOPHILUS 1 TABLET PO SCH (09:41)
[2018-05-19] MEDS: ASCORBIC ACID 500 MG TABLET (FP) PO SCH (09:41)
[2018-05-19] MEDS ORDERED: ACETAMINOPHEN WITH CODEINE 300MG/30MG TABLET PO PRN (09:53)
[2018-05-19] MEDS ORDERED: TAMSULOSIN HCL 0.4 MG CAP PO SCH ×2 (10:00→18:41)
[2018-05-19] MEDS ORDERED: METOPROLOL TARTRATE 50 MG TABLET (FP) PO SCH (10:00)
[2018-05-19] MEDS ORDERED: WARFARIN NA 2 MG TABLET (UD) PO SCH (10:00)
[2018-05-19] MEDS ORDERED: TORSEMIDE 100 MG TABLET PO SCH (10:00)
[2018-05-19 10:05] LABS: ERYTHROCYTE SEDIMENTATION RATE 47 mm/hr (0-20)
[2018-05-19] MEDS: VITAMIN B COMP W-C 1 EA TABLET PO SCH (11:15)
[2018-05-19] MEDS: POLYETHYLENE GLYCOL 3350 119 GM BTL PO PRN (11:26)
[2018-05-19 11:46] LABS: ANISOCYTOSIS 0; HELMET CELLS 0; HOWELL-JOLLY BODIES 0; MACROCYTOSIS 0; OVALOCYTE 0; PLATELET ESTIMATE DECREASED; ROULEAU 0; SICKELED CELLS 0; TARGET CELLS 0; TEAR DROP CELLS 0; TOXIC GRANULATION 0
[2018-05-19] MEDS: FLUTICASONE PROP 0.05% 16 GM NASAL SPRAY NS SCH (12:22)
[2018-05-19] MEDS ORDERED: WARFARIN NA 2 MG TABLET (UD) ONE (16:56)
[2018-05-19] MEDS ORDERED: WARFARIN NA 2.5 MG TABLET (FP) ONE (16:57)
[2018-05-19] MEDS: WARFARIN NA 2.5 MG, WARFARIN NA 2 MG PO SCH (17:44)
[2018-05-19] MEDS: METOPROLOL TARTRATE 25 MG TABLET (FP) PO SCH (22:07)
[2018-05-20] MEDS: TAMSULOSIN HCL 0.4 MG CAP PO SCH (08:48)
[2018-05-20] MEDS ORDERED: PT OWN MED DRAWER 7, Y5N ONE (09:25)
[2018-05-20] MEDS: FERROUS SO4 325 MG TABLET (FP) PO SCH (09:28)
[2018-05-20] MEDS: CHOLECALCIFEROL (VIT D3) 1,000 UNIT (25 MCG) TABLET PO SCH (09:28)
[2018-05-20] MEDS: VITAMIN B COMP W-C 1 EA TABLET PO SCH (09:28)
[2018-05-20] MEDS: LACTOBACILLUS ACIDOPHILUS 1 TABLET PO SCH (09:28)
[2018-05-20] MEDS: ALLOPURINOL 100 MG TABLET (FP) PO SCH (09:28)
[2018-05-20] MEDS: ASCORBIC ACID 500 MG TABLET (FP) PO SCH (09:28)
[2018-05-20] MEDS: TORSEMIDE 100 MG TABLET PO SCH (09:29)
[2018-05-20] MEDS: METOPROLOL TARTRATE 25 MG TABLET (FP) PO SCH ×2 (09:29→21:24)
[2018-05-20] MEDS: FLUTICASONE PROP 0.05% 16 GM NASAL SPRAY NS SCH (09:30)
--- NOTE | 2018-05-20 12:18 | PN ---
Progress Note (short form) - Note Progress Note: ID consult dictated imp/reccd fever dizziness at HD on Friday history of recurrent UTI urosepsis with enterococcus 2013, klebsiella 2015, most recent UTI pseudomonas esrd/hd urethral stricture continue meropenem based on prior urine culture results adjsut for esrd/hd f/u cultures de-escalate as appropriate d/w patient and at bedside Problem List - Problems (1) Fever in adult Code(s): R50.9 - FEVER, UNSPECIFIED (2) Urinary tract infection Code(s): N39.0 - URINARY TRACT INFECTION, SITE NOT SPECIFIED Qualifiers: Urinary tract infection type: acute cystitis Hematuria presence: without hematuria Qualified Code(s): N30.00 - Acute cystitis without hematuria (3) ESRD (end stage renal disease) on dialysis Code(s): N18.6 - END STAGE RENAL DISEASE; Z99.2 - DEPENDENCE ON RENAL DIALYSIS
[2018-05-20] MEDS ORDERED: SODIUM CHLORIDE 250 ML IV PRN (12:54)
--- NOTE | 2018-05-20 12:59 | CONSULT ---
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 Pt reports feeling better today. No CP, SOB, cough, fever, chills, N/V/D, Abd pain. Making urine frequently. No dysuria. Last dialysis was Friday. No flank pain. PMHx: as above Allergies: azithromycin Family Hx: NC Social Hx: No T/A/D ROS: as per HPI, all other pertinent ros negative Home Medications Medication Instructions Recorded Albuterol Sulfate [Proair 90 mcg IH QID PRN 05/21/16 Respiclick] Allopurinol [Zyloprim -] 100 mg PO DAILY 05/21/16 L.acidoph,Paracasei, B.lactis 1 each PO DAILY 05/21/16 [Probiotic] Methenamine Hippurate [Hiprex [Nf] 1 gm PO BID 05/21/16 -] Metoprolol Tartrate [Lopressor] 50 mg PO BID 05/21/16 Tamsulosin HCl [Flomax] 0.4 mg PO DAILY 05/21/16 Triamcinolone Acetonide [Nasacort] 2 sprays NS DAILY 05/21/16 Fluticasone/Vilanterol [Breo 1 each IH AM 11/04/17 Ellipta 200-25 Mcg INH] Polyethylene Glycol 3350 [Miralax 17 gm PO HS PRN 11/04/17 119 gm Btl -] Torsemide 50 mg PO DAILY 11/04/17 Warfarin Na [Coumadin -] 3 mg PO ASDIR 11/04/17 Warfarin Na [Coumadin -] 4.5 mg PO ASDIR 11/04/17 Acetaminophen [Tylenol .Regular 500 mg PO Q6H PRN 11/06/17 Strength -] Acetaminophen W/ Codeine #3 1 tab PO Q6H PRN #20 tablet MDD 4 11/12/17 [Tylenol # 3 -] Folic Acid/Vit B Complex and C 0.8 mg PO DAILY 05/18/18 [Joycelyn-Dustin Tablet] Vital Signs Temperature 97.4 F L 05/20/18 10:00 Pulse Rate 89 05/20/18 10:00 Respiratory Rate 20 05/20/18 10:00 Blood Pressure 93/56 L 05/20/18 10:00 O2 Sat by Pulse Oximetry (%) 98 05/20/18 09:00 Intake & Output 05/17/18 05/18/18 05/19/18 05/20/18 23:59 23:59 23:59 23:59 Intake Total 100 500 20 Output Total 330 Balance 100 170 20 Weight 77.5 kg 76.289 kg 76.204 kg NAD on room air neck supple, no JVD RRR, on M/R CTA, no rales soft NT/ND no LE edema, clubbing or cyanosis left arm AVF no bladder distension CBC, BMP 05/19/18 07:38 05/19/18 07:38 Current Medications Acetaminophen (Tylenol -) 500 mg PO Q6H PRN PRN Reason: PAIN LEVEL 1-5 Last Admin: 05/18/18 23:22 Dose: 500 mg Acetaminophen/Codeine Phosphate (Tylenol # 3 -) 1 tab PO Q6H PRN PRN Reason: PAIN LEVEL 6-10 Albumin Human (Albumin Human 25%) 12.5 gm IVPB Q30M [facility] Albuterol Sulfate (Ventolin Hfa Inhaler -) 2 puff IH Q6H PRN PRN Reason: SHORTNESS OF BREATH Allopurinol (Zyloprim -) 100 mg PO DAILY [facility] Last Admin: 05/20/18 09:28 Dose: 100 mg Ascorbic Acid (Vitamin C -) 500 mg PO DAILY [facility] Last Admin: 05/20/18 09:28 Dose: 500 mg Cholecalciferol (Vitamin D3 -) 5,000 unit PO Q2D@1000 [facility] Last Admin: 05/20/18 09:28 Dose: 5,000 unit Ferrous Sulfate (Feosol -) 325 mg PO DAILY [facility] Last Admin: 05/20/18 09:28 Dose: 325 mg Fluticasone Propionate (Flonase -) 2 spray NS DAILY [facility] Last Admin: 05/20/18 09:30 Dose: Not Given Meropenem 500 mg/ Dextrose 100 mls @ 200 mls/hr IVPB Q24H [facility] Sodium Chloride (Normal Saline -) 250 mls @ 3,000 mls/hr IV PRN PRN PRN Reason: Hypotension during Dialysis Stop: 05/21/18 12:54 Lactobacillus Acidophilus (Bacid -) 1 tab PO DAILY [facility] Last Admin: 05/20/18 09:28 Dose: 1 tab Metoprolol Tartrate (Lopressor -) 25 mg PO BID [facility] Last Admin: 05/20/18 09:29 Dose: Not Given Multivit/Ca Carb/B Cmplx/FA/Prenat (Nephro-Dustin -) 1 tablet PO DAILY [facility] Last Admin: 05/20/18 09:28 Dose: 1 tablet Non-Formulary Medication (Fluticasone/Vilanterol [Breo Ellipta 200-25 Mcg Inh]) 1 each IH AM [facility] Non-Formulary Medication (Methenamine Hippurate) 1 gm PO BID [facility] Polyethylene Glycol (Miralax (For Daily Use) -) 17 gm PO HS PRN PRN Reason: CONSTIPATION Last Admin: 05/19/18 11:26 Dose: 17 grams Tamsulosin HCl (Flomax -) 0.4 mg PO DAILY@0830 [facility] Last Admin: 05/20/18 08:48 Dose: 0.4 mg Torsemide (Demadex -) 50 mg PO DAILY [facility] Last Admin: 05/20/18 09:29 Dose: Not Given Warfarin Sodium (Coumadin -) 3 mg PO Q2D@1800 [facility] Warfarin Sodium 2.5 mg/ (Warfarin Sodium 2 mg) 4.5 mg PO DAILY@1800 [facility] Last Admin: 05/19/18 17:44 Dose: 4.5 mg 88 year old gentleman with 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 #Cystitis #Fever #ESRD on HD #Marginal BP/Hypotension #Hx of prostate Ca #Anemia #Hypokalemia Continue antibiotics as per ID for dialysis today as an inpatient with UF as tolerated f/u blood cultures will use IV albumin as needed with HD to maintain BP HGb is at goal can consider holding flomax if BP remains low BP is usually ~100 systolic continue torsemide for now Renal diet 1.2L Fluid restriction Thank you Jacques Esquivel DO
--- NOTE | 2018-05-20 13:56 | PN ---
Progress Note, Physician History of Present Illness: Pt w/o fever, chiolls, sob, CP, palp, abd pain, N, V, dysuria, back pain - Current Medication List Current Medications: Active Medications Acetaminophen (Tylenol -) 500 mg PO Q6H PRN PRN Reason: PAIN LEVEL 1-5 Last Admin: 05/18/18 23:22 Dose: 500 mg Acetaminophen/Codeine Phosphate (Tylenol # 3 -) 1 tab PO Q6H PRN PRN Reason: PAIN LEVEL 6-10 Albumin Human (Albumin Human 25%) 12.5 gm IVPB Q30M [facility] Albuterol Sulfate (Ventolin Hfa Inhaler -) 2 puff IH Q6H PRN PRN Reason: SHORTNESS OF BREATH Allopurinol (Zyloprim -) 100 mg PO DAILY [facility] Last Admin: 05/20/18 09:28 Dose: 100 mg Ascorbic Acid (Vitamin C -) 500 mg PO DAILY [facility] Last Admin: 05/20/18 09:28 Dose: 500 mg Cholecalciferol (Vitamin D3 -) 5,000 unit PO Q2D@1000 [facility] Last Admin: 05/20/18 09:28 Dose: 5,000 unit Ferrous Sulfate (Feosol -) 325 mg PO DAILY [facility] Last Admin: 05/20/18 09:28 Dose: 325 mg Fluticasone Propionate (Flonase -) 2 spray NS DAILY [facility] Last Admin: 05/20/18 09:30 Dose: Not Given Meropenem 500 mg/ Dextrose 100 mls @ 200 mls/hr IVPB Q24H [facility] Sodium Chloride (Normal Saline -) 250 mls @ 3,000 mls/hr IV PRN PRN PRN Reason: Hypotension during Dialysis Stop: 05/21/18 12:54 Lactobacillus Acidophilus (Bacid -) 1 tab PO DAILY [facility] Last Admin: 05/20/18 09:28 Dose: 1 tab Metoprolol Tartrate (Lopressor -) 25 mg PO BID [facility] Last Admin: 05/20/18 09:29 Dose: Not Given Multivit/Ca Carb/B Cmplx/FA/Prenat (Nephro-Dustin -) 1 tablet PO DAILY [facility] Last Admin: 05/20/18 09:28 Dose: 1 tablet Non-Formulary Medication (Fluticasone/Vilanterol [Breo Ellipta 200-25 Mcg Inh]) 1 each IH AM [facility] Non-Formulary Medication (Methenamine Hippurate) 1 gm PO BID [facility] Polyethylene Glycol (Miralax (For Daily Use) -) 17 gm PO HS PRN PRN Reason: CONSTIPATION Last Admin: 05/19/18 11:26 Dose: 17 grams Tamsulosin HCl (Flomax -) 0.4 mg PO DAILY@0830 [facility] Last Admin: 05/20/18 08:48 Dose: 0.4 mg Torsemide (Demadex -) 50 mg PO DAILY [facility] Last Admin: 05/20/18 09:29 Dose: Not Given Warfarin Sodium (Coumadin -) 3 mg PO Q2D@1800 [facility] Warfarin Sodium 2.5 mg/ (Warfarin Sodium 2 mg) 4.5 mg PO DAILY@1800 [facility] Last Admin: 05/19/18 17:44 Dose: 4.5 mg - Objective Vital Signs: Vital Signs Temperature 97.7 F 05/20/18 13:38 Pulse Rate 92 H 05/20/18 13:38 Respiratory Rate 20 05/20/18 13:38 Blood Pressure 98/56 L 05/20/18 13:38 O2 Sat by Pulse Oximetry (%) 98 05/20/18 09:00 Constitutional: Yes: No Distress, Calm Cardiovascular: Yes: Regular Rate and Rhythm, S1, S2 Respiratory: Yes: Regular, CTA Bilaterally Gastrointestinal: Yes: Normal Bowel Sounds, Soft. No: Tenderness Edema: No Neurological: Yes: Alert, Oriented Labs: INR, PTT INR 1.69 (0.83-1.09) H 05/19/18 07:38 Problem List - Problems (1) Urinary tract infection Code(s): N39.0 - URINARY TRACT INFECTION, SITE NOT SPECIFIED Qualifiers: Urinary tract infection type: acute cystitis Hematuria presence: without hematuria Qualified Code(s): N30.00 - Acute cystitis without hematuria (2) Sepsis Code(s): A41.9 - SEPSIS, UNSPECIFIED ORGANISM Qualifiers: Sepsis type: sepsis due to unspecified organism Qualified Code(s): A41.9 - Sepsis, unspecified organism (3) ESRD (end stage renal disease) on dialysis Code(s): N18.6 - END STAGE RENAL DISEASE; Z99.2 - DEPENDENCE ON RENAL DIALYSIS (4) Urinary retention Code(s): R33.9 - RETENTION OF URINE, UNSPECIFIED (5) A-fib Code(s): I48.91 - UNSPECIFIED ATRIAL FIBRILLATION Qualifiers: Atrial fibrillation type: permanent Qualified Code(s): I48.2 - Chronic atrial fibrillation (6) CAD (coronary artery disease) Code(s): I25.10 - ATHSCL HEART DISEASE OF [place] CORONARY ARTERY W/O ANG PCTRS Assessment/Plan IV abtx (per ID) ID and Renal consults are appreciated To f/u BCX, UCX AM labs
[2018-05-20 14:04] LABS: HEMATOCRIT 34.6 % (35.4-49); HEMOGLOBIN 11.4 GM/dL (11.7-16.9); MCH 29.4 pg (25.7-33.7); MCHC 33.1 g/dl (32.0-35.9); MEAN CELL VOLUME 88.9 fl (80-96); MEAN PLT VOLUME 9.2 fl (7.5-11.1); PLATELET COUNT 115 K/MM3 (134-434); RBC 3.89 M/mm3 (4.00-5.60); RDW 15.7 % (11.9-15.9); WHITE BLOOD COUNT 8.2 K/mm3 (4.0-10.0)
[2018-05-20 14:11] LABS: ANION GAP 12 MMOL/L (8-16); BLOOD UREA NITROGEN 38 mg/dL (7-18); CALCIUM 7.9 mg/dL (8.5-10.1); CHLORIDE 101 mmol/L (98-107); CO2 24 mmol/L (21-32); CREATININE 4.3 mg/dL (0.55-1.3); GLUCOSE,RANDOM 104 mg/dL (74-106); PHOSPHOROUS 3.4 mg/dL (2.5-4.9); POTASSIUM 3.1 mmol/L (3.5-5.1); SODIUM 137 mmol/L (136-145)
--- NOTE | 2018-05-20 14:55 | CONS ---
DATE OF CONSULTATION: DATE OF DICTATION: 05/20/2018 REQUESTED BY: Enrike Rivero MD This is an 88-year-old man with a history of end-stage renal disease. He has been on dialysis since October of 2017. He has a history of urethral stricture and catheterizes himself every 3 days. He has a history of recurrent urinary tract infection, permanent pacemaker, prostate cancer, and kidney stones. He was at dialysis on Friday and was feeling very, very cold. He became dizzy. At the end of dialysis, he was noted to be unwell and sent to the ER. The reports that he was not given antibiotic and did not have cultures drawn there. He came to the emergency room the night of the . He had blood cultures drawn. He was given a dose of meropenem for possible UTI. I am asked to see him for further followup. His fevers have resolved and he is feeling much better. Apparently, while at dialysis, he became very tremulous and was very cold with rigors. He was dizzy. He had a headache. He was brought to the ER, where he was noted to have fever of 102. He is known to have asymptomatic bacteruria but is only treated when symptomatic. He has not been on any antibiotics in the last month. His past medical history is notable for end-stage renal disease, hemodialysis, urethral stricture, permanent pacemaker, skin cancer, prostate cancer, atrial fibrillation, COPD. He has history of diverticulitis in the past. Surgical history is notable for hernia repair, permanent pacemaker, total left knee replacement, total left hip replacement. He also has an AV fistula in his right arm that was placed October 2017. INFECTIONS: In 2013, he had enterococcal urosepsis; 2016, he had Klebsiella urosepsis. SOCIAL HISTORY: Former smoker. He lives with his . REVIEW OF SYSTEMS: His appetite is good. He has had no further fevers or chills. He has no headache. He has no abdominal or chest pain and he feels well. PHYSICAL EXAMINATION: Vital Signs: Temperature is 97.4. Pulse 89. Blood pressure 93/66. Respiratory rate 20. He is saturating 98%. HEENT: Normocephalic. His eyes are anicteric. Neck: Supple. Lungs: Clear to auscultation. Heart: Regular rate and rhythm. Abdomen: Soft, nontender. Extremities: His AV fistula is functioning well. His extremities are without edema. White count on admission was 11.4, today is 10.1, hemoglobin 11.4, platelets 106, INR is 1.6. BUN 24, creatinine 3.5. Urinalysis has 3+ leukocytes with 4000 white cells. Influenza screen is negative. Blood cultures are negative after 24 hours. Urine culture is growing [id number] gram-negative. Chest x-ray is done and is normal. In summary, this is an elderly man with end-stage renal disease, on dialysis, urethral stricture, history of recurrent urosepsis with bacteremia in 2014, enterococcus in 2016, Klebsiella, most recently has had Pseudomonas urinary tract infection, developed dizziness, headache, fever, chills. This appears to have responded to meropenem. Urine culture is growing [id number] gram-negatives. Would recommend at this time that we continue the meropenem, follow up on his cultures, in order to see if we can deescalate his antibiotics. He appears clinically improved. Will adjust his antibiotics for his end-stage renal disease. He is to be seen by Renal as well. Further recommendations to follow. ARABELLA DORAN M.D. TOBY/[id number]
[2018-05-20] MEDS: ALBUMIN HUMAN 25% 12.5 GM/50 ML VIAL IVPB SCH ×4 (15:00→18:38)
[2018-05-20] MEDS ORDERED: WARFARIN NA 3 MG TABLET PO SCH (18:00)
[2018-05-20] MEDS: MEROPENEM 500 MG in DEXTROSE 5%-WATER 100 ML IVPB SCH (18:16)
[2018-05-20] MEDS ORDERED: INSULIN (NOVOLOG) ASPART 100 UNITS/ML 10ML VIAL ONE (18:56)
[2018-05-20 19:36] LABS: CREATININE 1.4 mg/dL (0.55-1.3)
[2018-05-20 20:08] LABS: INR 1.41 (0.83-1.09); PROTHROMBIN TIME (PATIENT) 16.7 SEC (9.7-13.0)
[2018-05-20] MEDS ORDERED: WARFARIN NA 3 MG TABLET PO ONE (21:00)
[2018-05-20] MEDS: POLYETHYLENE GLYCOL 3350 119 GM BTL PO PRN (21:23)
[2018-05-20] MEDS: WARFARIN NA 2.5 MG, WARFARIN NA 2 MG PO SCH (21:24)
[2018-05-20] MEDS: METHENAMINE HIPPURATE 1 GM PO SCH (21:25)
[2018-05-21 07:34] LABS: HEMATOCRIT 33.6 % (35.4-49); HEMOGLOBIN 11.1 GM/dL (11.7-16.9); MCH 29.1 pg (25.7-33.7); MEAN CELL VOLUME 88.2 fl (80-96); MEAN PLT VOLUME 9.1 fl (7.5-11.1); PLATELET COUNT 104 K/MM3 (134-434); RBC 3.81 M/mm3 (4.00-5.60); RDW 16.1 % (11.9-15.9); WHITE BLOOD COUNT 6.1 K/mm3 (4.0-10.0)
[2018-05-21 07:57] LABS: INR 1.39 (0.83-1.09); PROTHROMBIN TIME (PATIENT) 16.5 SEC (9.7-13.0)
[2018-05-21] MEDS: TAMSULOSIN HCL 0.4 MG CAP PO SCH (09:50)
[2018-05-21] MEDS: METOPROLOL TARTRATE 25 MG TABLET (FP) PO SCH ×2 (09:51→21:08)
[2018-05-21] MEDS: TORSEMIDE 100 MG TABLET PO SCH (09:51)
--- NOTE | 2018-05-21 09:55 | PN ---
Progress Note, Physician History of Present Illness: Pt w/o fever, chills, SOB, CP, palp, abd pain, dysuria. Pt states that is a little stronger today, still not able to walk w/o help - Current Medication List Current Medications: Active Medications Acetaminophen (Tylenol -) 500 mg PO Q6H PRN PRN Reason: PAIN LEVEL 1-5 Last Admin: 05/18/18 23:22 Dose: 500 mg Acetaminophen/Codeine Phosphate (Tylenol # 3 -) 1 tab PO Q6H PRN PRN Reason: PAIN LEVEL 6-10 Albuterol Sulfate (Ventolin Hfa Inhaler -) 2 puff IH Q6H PRN PRN Reason: SHORTNESS OF BREATH Allopurinol (Zyloprim -) 100 mg PO DAILY [facility] Last Admin: 05/20/18 09:28 Dose: 100 mg Ascorbic Acid (Vitamin C -) 500 mg PO DAILY [facility] Last Admin: 05/20/18 09:28 Dose: 500 mg Cholecalciferol (Vitamin D3 -) 5,000 unit PO Q2D@1000 [facility] Last Admin: 05/20/18 09:28 Dose: 5,000 unit Ferrous Sulfate (Feosol -) 325 mg PO DAILY [facility] Last Admin: 05/20/18 09:28 Dose: 325 mg Fluticasone Propionate (Flonase -) 2 spray NS DAILY [facility] Last Admin: 05/20/18 09:30 Dose: Not Given Meropenem 500 mg/ Dextrose 100 mls @ 200 mls/hr IVPB Q24H [facility] Last Admin: 05/20/18 18:16 Dose: 200 mls/hr Sodium Chloride (Normal Saline -) 250 mls @ 3,000 mls/hr IV PRN PRN PRN Reason: Hypotension during Dialysis Stop: 05/21/18 12:54 Lactobacillus Acidophilus (Bacid -) 1 tab PO DAILY [facility] Last Admin: 05/20/18 09:28 Dose: 1 tab Metoprolol Tartrate (Lopressor -) 25 mg PO BID [facility] Last Admin: 05/21/18 09:51 Dose: Not Given Multivit/Ca Carb/B Cmplx/FA/Prenat (Nephro-Dustin -) 1 tablet PO DAILY [facility] Last Admin: 05/20/18 09:28 Dose: 1 tablet (Fluticasone/Vilanterol [Breo Ellipta 200-25 Mcg Patient's Own Medication (Non- Formulary) 1 each IH AM [facility] (Methenamine Hippurate 1 Gm) Patient's Own Medication (Non- Formulary) 1 gm PO BID [facility] Last Admin: 05/20/18 21:25 Dose: 1 gm Polyethylene Glycol (Miralax (For Daily Use) -) 17 gm PO HS PRN PRN Reason: CONSTIPATION Last Admin: 05/20/18 21:23 Dose: 17 grams Tamsulosin HCl (Flomax -) 0.4 mg PO DAILY@0830 [facility] Last Admin: 05/21/18 09:50 Dose: Not Given Torsemide (Demadex -) 50 mg PO DAILY [facility] Last Admin: 05/21/18 09:51 Dose: Not Given Warfarin Sodium (Coumadin -) 3 mg PO Q2D@1800 [facility] Last Admin: 05/20/18 21:24 Dose: Not Given Warfarin Sodium 2.5 mg/ (Warfarin Sodium 2 mg) 4.5 mg PO DAILY@1800 [facility] Last Admin: 05/20/18 21:24 Dose: Not Given - Objective Vital Signs: Vital Signs Temperature 97.5 F L 05/21/18 06:00 Pulse Rate 89 05/21/18 06:00 Respiratory Rate 20 05/21/18 06:00 Blood Pressure 99/64 05/21/18 06:00 O2 Sat by Pulse Oximetry (%) 97 05/20/18 20:36 Constitutional: Yes: No Distress, Calm Cardiovascular: Yes: Regular Rate and Rhythm, S1, S2 Respiratory: Yes: Regular, CTA Bilaterally. No: Rales Gastrointestinal: Yes: Normal Bowel Sounds, Soft. No: Tenderness Edema: No Labs: CBC, BMP 05/21/18 06:30 05/20/18 17:30 INR, PTT INR 1.39 (0.83-1.09) H 05/21/18 06:30 Problem List - Problems (1) Urinary tract infection Code(s): N39.0 - URINARY TRACT INFECTION, SITE NOT SPECIFIED Qualifiers: Urinary tract infection type: acute cystitis Hematuria presence: without hematuria Qualified Code(s): N30.00 - Acute cystitis without hematuria (2) Sepsis Code(s): A41.9 - SEPSIS, UNSPECIFIED ORGANISM Qualifiers: Sepsis type: sepsis due to unspecified organism Qualified Code(s): A41.9 - Sepsis, unspecified organism (3) ESRD (end stage renal disease) on dialysis Code(s): N18.6 - END STAGE RENAL DISEASE; Z99.2 - DEPENDENCE ON RENAL DIALYSIS (4) Urinary retention Code(s): R33.9 - RETENTION OF URINE, UNSPECIFIED (5) A-fib Code(s): I48.91 - UNSPECIFIED ATRIAL FIBRILLATION Qualifiers: Atrial fibrillation type: permanent Qualified Code(s): I48.2 - Chronic atrial fibrillation (6) CAD (coronary artery disease) Code(s): I25.10 - ATHSCL HEART DISEASE OF [place] CORONARY ARTERY W/O ANG PCTRS Assessment/Plan IV abtx (per ID) at HD in AM ID and Renal consults are appreciated UCX was noted AM labs
[2018-05-21] MEDS: [UNRECOGNIZED DRUG - OTHER] IH SCH ×3 (10:05→10:07)
[2018-05-21] MEDS: FERROUS SO4 325 MG TABLET (FP) PO SCH (10:07)
[2018-05-21] MEDS: METHENAMINE HIPPURATE 1 GM PO SCH ×2 (10:07→21:08)
[2018-05-21] MEDS: VITAMIN B COMP W-C 1 EA TABLET PO SCH (10:08)
[2018-05-21] MEDS: ALLOPURINOL 100 MG TABLET (FP) PO SCH (10:08)
[2018-05-21] MEDS: LACTOBACILLUS ACIDOPHILUS 1 TABLET PO SCH (10:08)
[2018-05-21] MEDS: ASCORBIC ACID 500 MG TABLET (FP) PO SCH (10:08)
[2018-05-21] MEDS: FLUTICASONE PROP 0.05% 16 GM NASAL SPRAY NS SCH (10:08)
[2018-05-21] MEDS ORDERED: SODIUM CHLORIDE 250 ML IV PRN (14:26)
--- NOTE | 2018-05-21 14:26 | PN ---
Progress Note (short form) - Note Progress Note: Renal follow up for ESRD on HD Pt seen and examined at the bedside no acute complaints no sob, cp, fever, chills, dysuira s/p dialysis yesterday Vital Signs Temperature 97.8 F 05/21/18 13:24 Pulse Rate 92 H 05/21/18 13:24 Respiratory Rate 20 05/21/18 13:24 Blood Pressure 90/63 05/21/18 13:24 O2 Sat by Pulse Oximetry (%) 95 05/21/18 09:00 Intake & Output 05/18/18 05/19/18 05/20/18 05/21/18 23:59 23:59 23:59 23:59 Intake Total 100 500 570 500 Output Total 330 Balance 100 170 570 500 Weight 77.5 kg 76.289 kg 76.204 kg 75.251 kg NAD on room air CTA, no rales soft NT/ND no LE edema, clubbing or cyanosis left arm AVF no bladder distension CBC, BMP 05/21/18 06:30 05/20/18 17:30 Current Medications Acetaminophen (Tylenol -) 500 mg PO Q6H PRN PRN Reason: PAIN LEVEL 1-5 Last Admin: 05/18/18 23:22 Dose: 500 mg Acetaminophen/Codeine Phosphate (Tylenol # 3 -) 1 tab PO Q6H PRN PRN Reason: PAIN LEVEL 6-10 Albuterol Sulfate (Ventolin Hfa Inhaler -) 2 puff IH Q6H PRN PRN Reason: SHORTNESS OF BREATH Allopurinol (Zyloprim -) 100 mg PO DAILY [facility] Last Admin: 05/21/18 10:08 Dose: 100 mg Ascorbic Acid (Vitamin C -) 500 mg PO DAILY [facility] Last Admin: 05/21/18 10:08 Dose: 500 mg Cholecalciferol (Vitamin D3 -) 5,000 unit PO Q2D@1000 [facility] Last Admin: 05/20/18 09:28 Dose: 5,000 unit Ferrous Sulfate (Feosol -) 325 mg PO DAILY [facility] Last Admin: 05/21/18 10:07 Dose: 325 mg Fluticasone Propionate (Flonase -) 2 spray NS DAILY [facility] Last Admin: 05/21/18 10:08 Dose: Not Given Meropenem 500 mg/ Dextrose 100 mls @ 200 mls/hr IVPB Q24H [facility] Last Admin: 05/20/18 18:16 Dose: 200 mls/hr Lactobacillus Acidophilus (Bacid -) 1 tab PO DAILY [facility] Last Admin: 05/21/18 10:08 Dose: 1 tab Metoprolol Tartrate (Lopressor -) 25 mg PO BID [facility] Last Admin: 05/21/18 09:51 Dose: Not Given Multivit/Ca Carb/B Cmplx/FA/Prenat (Nephro-Dustin -) 1 tablet PO DAILY [facility] Last Admin: 05/21/18 10:08 Dose: 1 tablet (Fluticasone/Vilanterol [Breo Ellipta 200-25 Mcg Patient's Own Medication (Non- Formulary) 1 each IH AM [facility] Last Admin: 05/21/18 10:07 Dose: 1 each (Methenamine Hippurate 1 Gm) Patient's Own Medication (Non- Formulary) 1 gm PO BID [facility] Last Admin: 05/21/18 10:07 Dose: 1 gm Polyethylene Glycol (Miralax (For Daily Use) -) 17 gm PO HS PRN PRN Reason: CONSTIPATION Last Admin: 05/20/18 21:23 Dose: 17 grams Tamsulosin HCl (Flomax -) 0.4 mg PO DAILY@0830 [facility] Last Admin: 05/21/18 09:50 Dose: Not Given Torsemide (Demadex -) 50 mg PO DAILY [facility] Last Admin: 05/21/18 09:51 Dose: Not Given Warfarin Sodium (Coumadin -) 3 mg PO Q2D@1800 [facility] Last Admin: 05/20/18 21:24 Dose: Not Given Warfarin Sodium 2.5 mg/ (Warfarin Sodium 2 mg) 4.5 mg PO DAILY@1800 [facility] Last Admin: 05/20/18 21:24 Dose: Not Given 88 year old gentleman with 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 #Cystitis #Fever #ESRD on HD #Marginal BP/Hypotension #Hx of prostate Ca #Anemia #Hypokalemia no acute indication for PIPE [employer] G[employer] PIPE today next dialysis planned for tomorrow Renal diet 1.2L Fluid restriction continue antibiotics as per ID Thank you Jacques Esquivel DO
[2018-05-21] MEDS ORDERED: WARFARIN NA 2.5 MG TABLET (FP) ONE (16:50)
[2018-05-21] MEDS ORDERED: WARFARIN NA 2 MG TABLET (UD) ONE (16:50)
[2018-05-21] MEDS: MEROPENEM 500 MG in DEXTROSE 5%-WATER 100 ML IVPB SCH (17:07)
[2018-05-21] MEDS: WARFARIN NA 2.5 MG, WARFARIN NA 2 MG PO SCH (17:09)
--- NOTE | 2018-05-21 17:11 | PN ---
Progress Note (short form) - Note Progress Note: feels well day #3 meropenem Vital Signs Period Temp Pulse Resp BP Sys/Askew Pulse Ox Last 24 Hr 97.2 F-99 F 82-96 18-20 90-106/58-64 95-97 cor-rrr lungs clear abd soft,nt ext no edema CBC, BMP 05/21/18 06:30 05/20/18 17:30 Microbiology 05/18/18 21:16 Urine - Urine Camp Urine Culture - Final Pseudomonas Aeruginosa 05/18/18 17:14 Urine - Urine Clean Catch Urine Culture - Final Pseudomonas Aeruginosa 05/18/18 18:48 Blood - Peripheral Venous Blood Culture - Preliminary NO GROWTH OBTAINED AFTER 48 HOURS, INCUBATION TO CONTINUE FOR 3 DAYS. 05/18/18 18:48 Blood - Peripheral Venous Blood Culture - Preliminary NO GROWTH OBTAINED AFTER 48 HOURS, INCUBATION TO CONTINUE FOR 3 DAYS. imp/reccd pseudomonas UTI day #3 meropenem no objection to switch to levaquin could give a dose of meropenem after HD tomorrow and then start levaquin the next day for another 7 days 250 po every other day esrd/hd urethral stricture d/w patient and at bedside Problem List - Problems (1) Fever in adult Code(s): R50.9 - FEVER, UNSPECIFIED (2) Urinary tract infection Code(s): N39.0 - URINARY TRACT INFECTION, SITE NOT SPECIFIED Qualifiers: Urinary tract infection type: acute cystitis Hematuria presence: without hematuria Qualified Code(s): N30.00 - Acute cystitis without hematuria (3) ESRD (end stage renal disease) on dialysis Code(s): N18.6 - END STAGE RENAL DISEASE; Z99.2 - DEPENDENCE ON RENAL DIALYSIS
[2018-05-21] MEDS ORDERED: WARFARIN NA 2.5 MG TABLET (FP) PO ONE (23:50)
[2018-05-22] MEDS: [UNRECOGNIZED DRUG - OTHER] IH SCH (06:10)
[2018-05-22 07:26] LABS: INR 1.42 (0.83-1.09); PROTHROMBIN TIME (PATIENT) 16.8 SEC (9.7-13.0)
[2018-05-22 09:40] VITALS: TEMP 97.8
[2018-05-22 09:44] LABS: HEMATOCRIT 38.3 % (35.4-49); HEMOGLOBIN 12.4 GM/dL (11.7-16.9); MCH 28.8 pg (25.7-33.7); MCHC 32.3 g/dl (32.0-35.9); MEAN CELL VOLUME 89.2 fl (80-96); MEAN PLT VOLUME 9.3 fl (7.5-11.1); PLATELET COUNT 137 K/MM3 (134-434); RBC 4.29 M/mm3 (4.00-5.60); WHITE BLOOD COUNT 7.6 K/mm3 (4.0-10.0)
[2018-05-22 09:57] LABS: ANION GAP 12 MMOL/L (8-16); BLOOD UREA NITROGEN 37 mg/dL (7-18); CALCIUM 8.7 mg/dL (8.5-10.1); CHLORIDE 98 mmol/L (98-107); CO2 28 mmol/L (21-32); CREATININE 3.8 mg/dL (0.55-1.3); GLUCOSE,RANDOM 87 mg/dL (74-106); PHOSPHOROUS 3.6 mg/dL (2.5-4.9); POTASSIUM 3.5 mmol/L (3.5-5.1); SODIUM 137 mmol/L (136-145)
[2018-05-22 11:18] LABS: HBSAG SCREEN Negative (Negative); HEP A AB, IGM Negative (Negative); HEP B CORE AB, TOT Negative (Negative)
[2018-05-22] MEDS ORDERED: PT OWN MED DRAWER 7, Y5N ONE (12:00)
[2018-05-22 12:07] VITALS: BP 111/61; PULSE 89
[2018-05-22] MEDS: MEROPENEM 500 MG in DEXTROSE 5%-WATER 100 ML IVPB SCH (12:42)
[2018-05-22] MEDS: LACTOBACILLUS ACIDOPHILUS 1 TABLET PO SCH (12:44)
[2018-05-22] MEDS: ALLOPURINOL 100 MG TABLET (FP) PO SCH (12:44)
[2018-05-22] MEDS: TAMSULOSIN HCL 0.4 MG CAP PO SCH (12:44)
[2018-05-22] MEDS: METOPROLOL TARTRATE 25 MG TABLET (FP) PO SCH (12:45)
[2018-05-22] MEDS: TORSEMIDE 100 MG TABLET PO SCH (12:45)
[2018-05-22] MEDS: ASCORBIC ACID 500 MG TABLET (FP) PO SCH (12:46)
[2018-05-22] MEDS: CHOLECALCIFEROL (VIT D3) 1,000 UNIT (25 MCG) TABLET PO SCH (12:46)
[2018-05-22] MEDS: VITAMIN B COMP W-C 1 EA TABLET PO SCH (12:46)
[2018-05-22] MEDS: FERROUS SO4 325 MG TABLET (FP) PO SCH (12:46)
[2018-05-22] MEDS: METHENAMINE HIPPURATE 1 GM PO SCH (12:48)
[2018-05-22] MEDS: FLUTICASONE PROP 0.05% 16 GM NASAL SPRAY NS SCH (12:48)
--- NOTE | 2018-05-22 13:18 | PN ---
Progress Note (short form) - Note Progress Note: Renal follow up for ESRD on HD Pt seen and examined during dialysis BP stable, access with good flow feels weak UF goal 1.5-2 Vital Signs Temperature 97.8 F 05/22/18 08:40 Pulse Rate 89 05/22/18 11:56 Respiratory Rate 18 05/22/18 11:56 Blood Pressure 111/61 05/22/18 11:56 O2 Sat by Pulse Oximetry (%) 96 05/21/18 21:00 NAD on room air CTA, no rales soft NT/ND no LE edema, clubbing or cyanosis left arm AVF no bladder distension CBC, BMP 05/22/18 06:45 05/22/18 09:35 Current Medications Acetaminophen (Tylenol -) 500 mg PO Q6H PRN PRN Reason: PAIN LEVEL 1-5 Last Admin: 05/18/18 23:22 Dose: 500 mg Acetaminophen/Codeine Phosphate (Tylenol # 3 -) 1 tab PO Q6H PRN PRN Reason: PAIN LEVEL 6-10 Albuterol Sulfate (Ventolin Hfa Inhaler -) 2 puff IH Q6H PRN PRN Reason: SHORTNESS OF BREATH Allopurinol (Zyloprim -) 100 mg PO DAILY [facility] Last Admin: 05/22/18 12:44 Dose: 100 mg Ascorbic Acid (Vitamin C -) 500 mg PO DAILY [facility] Last Admin: 05/22/18 12:46 Dose: Not Given Cholecalciferol (Vitamin D3 -) 5,000 unit PO Q2D@1000 [facility] Last Admin: 05/22/18 12:46 Dose: Not Given Ferrous Sulfate (Feosol -) 325 mg PO DAILY [facility] Last Admin: 05/22/18 12:46 Dose: Not Given Fluticasone Propionate (Flonase -) 2 spray NS DAILY [facility] Last Admin: 05/22/18 12:48 Dose: Not Given Meropenem 500 mg/ Dextrose 100 mls @ 200 mls/hr IVPB Q24H [facility] Last Admin: 05/22/18 12:42 Dose: 200 mls/hr Sodium Chloride (Normal Saline -) 250 mls @ 3,000 mls/hr IV PRN PRN PRN Reason: Hypotension during Dialysis Stop: 05/22/18 14:27 Lactobacillus Acidophilus (Bacid -) 1 tab PO DAILY [facility] Last Admin: 05/22/18 12:44 Dose: 1 tab Metoprolol Tartrate (Lopressor -) 25 mg PO BID [facility] Last Admin: 05/22/18 12:45 Dose: 25 mg Multivit/Ca Carb/B Cmplx/FA/Prenat (Nephro-Dustin -) 1 tablet PO DAILY [facility] Last Admin: 05/22/18 12:46 Dose: 1 tablet (Fluticasone/Vilanterol [Breo Ellipta 200-25 Mcg Patient's Own Medication (Non- Formulary) 1 each IH AM [facility] Last Admin: 05/22/18 06:10 Dose: 1 each (Methenamine Hippurate 1 Gm) Patient's Own Medication (Non- Formulary) 1 gm PO BID [facility] Last Admin: 05/22/18 12:48 Dose: 1 gm Polyethylene Glycol (Miralax (For Daily Use) -) 17 gm PO HS PRN PRN Reason: CONSTIPATION Last Admin: 05/20/18 21:23 Dose: 17 grams Tamsulosin HCl (Flomax -) 0.4 mg PO DAILY@0830 [facility] Last Admin: 05/22/18 12:44 Dose: 0.4 mg Torsemide (Demadex -) 50 mg PO DAILY [facility] Last Admin: 05/22/18 12:45 Dose: 50 mg Warfarin Sodium (Coumadin -) 3 mg PO Q2D@1800 [facility] Last Admin: 05/20/18 21:24 Dose: Not Given Warfarin Sodium 2.5 mg/ (Warfarin Sodium 2 mg) 4.5 mg PO DAILY@1800 [facility] Last Admin: 05/21/18 17:09 Dose: 4.5 mg 88 year old gentleman with 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 #Cystitis #Fever #ESRD on HD #Marginal BP/Hypotension #Hx of prostate Ca #Anemia #Hypokalemia tolerating dialysis well to recieve Meropenum post HD today and then be on oral abx as pre ID Discharge planning as per primary next Hd Friday as an outpatient Thank you Jacques Esquivel DO
--- NOTE | 2018-05-22 14:35 | DS ---
Physical Examination Vital Signs: Vital Signs Temperature 97.8 F 05/22/18 08:40 Pulse Rate 89 05/22/18 11:56 Respiratory Rate 18 05/22/18 11:56 Blood Pressure 111/61 05/22/18 11:56 O2 Sat by Pulse Oximetry (%) 95 05/22/18 13:31 Constitutional: Yes: No Distress, Calm Cardiovascular: Yes: Regular Rate and Rhythm, S1, S2 Respiratory: Yes: Regular, CTA Bilaterally. No: Rales Gastrointestinal: Yes: Normal Bowel Sounds, Soft, Tenderness Edema: No Neurological: Yes: Alert, Oriented Labs: CBC, BMP 05/22/18 06:45 05/22/18 09:35 Discharge Summary Reason For Visit: UTI/LIGHTHEADNESS/HEADACHE/SEPSIS Current Active Problems CAD (coronary artery disease) (Acute) ESRD (end stage renal disease) on dialysis (Acute) Headache (Acute) Sepsis (Acute) Urinary tract infection (Acute) Procedures: Principal: CXR Hospital Course: Pt with significant Hx/o ESRD on HD, had chills during HD; after HD he felt weak and came to ER; he was found to have fever , leukocytosis, abnormal urine. Pt was admitted for UTI, pt was started on IV Meropenem. UCX was + for P Aeruginosa. Pt was seen by ID (Joshua), Renal (Dr. Esquivel). Pt to be DC'ed home with PO abtx. Condition: Guarded - Instructions Diet, Activity, Other Instructions: Resume diet To go for INR tomorrow Disposition: HOME - Home Medications Comprehensive Discharge Medication List: Ambulatory Orders See Patient Discharge Instructions
== END 2018-05-22 15:24 | disposition home or self-care (01) | DRG 871 ==
LOC: JER 14:52 → JERBED 17:54 → J7W 21:41
PROVIDERS: ADMIT Specialist; ATTEND Specialist
DX: A41.52 Sepsis due to Pseudomonas (principal); N18.6 End stage renal disease; N39.0 Urinary tract infection, site not specified; E87.6 Hypokalemia; I95.1 Orthostatic hypotension; Z99.2 Dependence on renal dialysis; I48.91 Unspecified atrial fibrillation; J44.9 Chronic obstructive pulmonary disease, unspecified; E78.5 Hyperlipidemia, unspecified; N35.919 Unspecified urethral stricture, male, unspecified site; R32 Unspecified urinary incontinence; I25.10 Atherosclerotic heart disease of native coronary artery without angina pectoris; Z95.0 Presence of cardiac pacemaker; Z85.46 Personal history of malignant neoplasm of prostate; Z85.828 Personal history of other malignant neoplasm of skin; Z96.652 Presence of left artificial knee joint; Z96.641 Presence of right artificial hip joint; Z87.891 Personal history of nicotine dependence; D64.9 Anemia, unspecified
CPT/HCPCS: 36415; 71045-TC-FY; 80048; 80053; 81003; 82565; 83605; 84100; 84484; 84520; 85025; 85027; 85610; 85651; 86704; 86706; 86708; 86803; 87040; 87086; 87186; 87340; 87804; 93005; 93010; 97116-GP; 97161-GP; 99284-25; J0131; P9047

== ENCOUNTER 2018-09-29 17:06 | Inpatient (IN) | payer OTHER, BC ==
[2018-09-29 17:18] VITALS: BMI 26.8
[2018-09-29] MEDS ORDERED: ACETAMINOPHEN 500 MG TABLET (FP) PO ONE (20:42)
[2018-09-29] MEDS ORDERED: ACETAMINOPHEN 325 MG TABLET (FP) ONE ×2 (21:08→21:44)
[2018-09-29 21:19] LABS: BASO % 0.3 % (0-2.0); EOS % 0.1 % (0-4.5); HEMATOCRIT 33.6 % (35.4-49); HEMOGLOBIN 11.2 GM/dL (11.7-16.9); LYMPH % 3.6 % (8-40); MCH 30.6 pg (25.7-33.7); MCHC 33.5 g/dl (32.0-35.9); MEAN CELL VOLUME 91.3 fl (80-96); MEAN PLT VOLUME 9.3 fl (7.5-11.1); MONO % 9.9 % (3.8-10.2); NEUT % 86.1 % (42.8-82.8); PLATELET COUNT 130 K/MM3 (134-434); RBC 3.67 M/mm3 (4.00-5.60); RDW 14.8 % (11.9-15.9); WHITE BLOOD COUNT 19.9 K/mm3 (4.0-10.0)
[2018-09-29] MEDS ORDERED: MEROPENEM 500 MG in DEXTROSE 5%-WATER 100 ML IVPB ONE (21:28)
[2018-09-29 21:34] LABS: VENOUS PC02 32.1 mmHg (41-51); VENOUS PH 7.5 (7.31-7.41); VENOUS PO2 35.4 mmHg (30-40)
[2018-09-29] MEDS ORDERED: SODIUM CHLORIDE 0.9% 500 ML INFUS.BAG IV ONE (21:35)
--- NOTE | 2018-09-29 21:42 | PDOC ---
History of Present Illness - General Chief Complaint: Headache Stated Complaint: FEVER/CHILLS Time Seen by Provider: 09/29/18 20:13 - History of Present Illness Initial Comments: 09/29/18 22:04 88yo M hx of ESRD (on HD MWF, last yesterday, followed by Dr Miller), urethral stricture (self-catheterization every 3-4 days, followed by Dr Marie), CAD, AFib (s/p pacemaker, on Coumadin), COPD, diverticulosis, prostate CA (s/p radiation seed implantation), kidney stones with subsequent damage to left kidney, and hyperlipidemia presents from home c/o fever, chills, and UTI s/p cystoscopy today. Pt had cystoscopy by Dr Marie today due to blockage. He was told he had a UTI and given 1 dose of cipro and told to get second dose after dialysis tomorrow. At 1pm today, pt started to experience chills and measured fever of 100.9. Endorses fatigue and generalized weakness since then. Endorses pressure-type circumferential headache of gradual onset since procedure but states he always has the same headache after procedures such as dialysis and cystoscopy. Endorses dysuria and pink blood-tinged urine in lawrence bag since cystoscopy that has been improving/clearing up. Denies CP, SOB, dizziness, cough, abdominal pain, N/V, numbness/tingling, focal weakness, D /C, blood in stool. Pt has not tried tylenol or pain medications today. Pt usually walks with cane and lives alone at home. Present today with ex-/ significant other/best friend. States pressure is normally in the 90s/50s. Past History - Past Medical History Allergies/Adverse Reactions: Allergies Allergy/AdvReac Type Severity Reaction Status Date / Time azithromycin AdvReac Intermediate HEADACHE Verified 09/29/18 17:10 Home Medications: Ambulatory Orders Albuterol Sulfate [Proair Respiclick] 90 mcg IH QID PRN 05/21/16 Allopurinol [Zyloprim -] 100 mg PO DAILY 05/21/16 Methenamine Hippurate [Hiprex [Nf] -] 1 gm PO BID 05/21/16 Metoprolol Tartrate [Lopressor] 50 mg PO BID 05/21/16 Tamsulosin HCl [Flomax] 0.4 mg PO DAILY 05/21/16 Triamcinolone Acetonide [Nasacort] 2 sprays NS DAILY 05/21/16 Fluticasone/Vilanterol [Breo Ellipta 200-25 Mcg INH] 1 each IH AM 11/04/17 Torsemide 50 mg PO DAILY 11/04/17 Warfarin Na [Coumadin -] 3 mg PO Q2D@1800 tablet 05/22/18 Warfarin Na [Coumadin -] 4.5 mg PO DAILY@1800 tablet 05/22/18 Warfarin Na [Coumadin -] 4.5 mg PO DAILY@1800 tablet 05/22/18 Lubiprostone [Amitiza] 24 mcg PO BID 09/30/18 Anemia: No Cancer: Yes (SKIN CA, PROSTATE) Cardiac Disorders: Yes (a.fib) COPD: Yes DVT: No Dialysis: Yes (M,W,F R ARM FISTULA) GI Disorders: Yes (DIVERTICULITIS) Disorders: Yes (NON FUNCTIONING LEFT KIDNEY) HTN: Yes Hypercholesterolemia: Yes (DIET CONTROLLED) - Surgical History Abdominal Surgery: (FISSURES, HERNIA) Appendectomy: Yes Cardiac Surgery: Yes (PACEMAKER) Cholecystectomy: Yes Orthopedic Surgery: Yes (TOTAL L KNEE REPLACEMENT-2001,TOTAL LEFT HIP REPLACEMENT-2003) - Immunization History Immunization Up to Date: Yes - Suicide/Smoking/Psychosocial Hx Smoking Status: Yes Smoking History: Never smoked Have you smoked in the past 12 months: No Number of Cigarettes Smoked Daily: 0 If you are a former smoker, when did you quit?: 40 YEARS AGO Cigars Per Day: 0 Hx Alcohol Use: No Drug/Substance Use Hx: No Substance Use Type: None Hx Substance Use Treatment: No Review of Systems - Review of Systems Comments:: Constitutional: Positive for chills, fever, fatigue, generalized weakness. HENT: Negative for sore throat, rhinorrhea, congestion. Eyes: Negative for visual disturbance. Respiratory: Negative for shortness of breath, cough, and wheezing. Cardiovascular: Negative for chest pain, palpitations, and leg swelling. Gastrointestinal: Negative for abdominal pain, blood in stool, constipation, diarrhea, nausea, and vomiting. Genitourinary: Positive for dysuria and hematuria. Negative for flank pain. Musculoskeletal: Negative for myalgias, back pain, and neck pain. Skin: Negative for rash. Neurological: Positive for headache. Negative for light-headedness, dizziness, syncope, weakness, numbness. Psychiatric/Behavioral: Negative for behavioral problems and confusion. *Physical Exam - Vital Signs Last Vital Signs Temp Pulse Resp BP Pulse Ox 100.6 F H 97 H 18 93/52 L 94 L 09/29/18 20:41 09/29/18 19:14 09/29/18 17:14 09/29/18 19:14 09/29/18 19:14 - Physical Exam Comments: Gen: Alert, NAD, comfortable-appearing. HEENT: PERRL, EOMI, MMM, NCAT. No conjunctival pallor. Sclera are non-icteric. Oropharynx is clear. CV: Regular rate and rhythm. No murmurs, rubs, or gallops. PULM: No resp distress. CTAB, no wheezes, rales, or rhonchi. ABD: +pink-tinged urine in lawrence bag; soft, NT/ND, no rebound tenderness or guarding, no CVA tenderness. BACK: No TTP of c/t/l-spine. No step-offs or deformities. MSK: No bony deformities. 2+ pulses in all extremities. NEURO: AAOx3. PERRL. No gross CN deficits. Strength and sensation grossly intact throughout. EXTREMITIES: No cyanosis. No clubbing. No edema. No calf tenderness. Bandage to RUE with no surrounding erythema, warmth, or drainage; RUE fistula with positive auscultation of bruit and positive palpation of thrill. PSYCH: Normal mood and thought pattern. SKIN: Warm and dry. Normal capillary refill. No rashes. No jaundice. Heart Score/ECG Review - ECG Impressions Comment:: Afib with occasional ventricular-paced complexes, LAD, low voltage WRS, 66bpm, TWI in III/aVF, no DANIEL/STDs. No significant changes compared to 05/18/18. ED Treatment Course - LABORATORY CBC & Chemistry Diagram: 10/01/18 07:52 10/01/18 07:52 - ADDITIONAL ORDERS Additional order review: Laboratory Results 09/29/18 09/29/18 09/29/18 21:17 21:13 20:45 PT with INR 21.70 H INR 1.83 H VBG pH 7.50 H POC VBG pCO2 32.1 L POC VBG pO2 35.4 VBG HCO3 25.0 VBG O2 Sat (Chanell) 66.6 L VBG Base Excess 2.5 H Troponin I < 0.02 09/29/18 21:13 RBC 3.67 L MCV 91.3 MCHC 33.5 RDW 14.8 MPV 9.3 Neutrophils % 86.1 H D Lymphocytes % 3.6 L D Monocytes % 9.9 Eosinophils % 0.1 Basophils % 0.3 - RADIOLOGY Radiology Studies Ordered: Category Date Time Status CHEST X-RAY PORTABLE* [RAD] Stat Radiology 09/29/18 20:41 Ordered Medical Decision Making - Medical Decision Making 88yo M hx of ESRD (on HD MWF, last yesterday, followed by Dr Miller), urethral stricture (self-catheterization every 3-4 days, followed by Dr Marie), CAD, AFib (s/p pacemaker, on Coumadin), COPD, diverticulosis, prostate CA (s/p radiation seed implantation), kidney stones with subsequent damage to left kidney, and hyperlipidemia presents from home c/o fever, chills, and UTI s/p cystoscopy today. Pt had cystoscopy by Dr Marie today due to blockage. He was told he had a UTI and given 1 dose of cipro and told to get second dose after dialysis tomorrow. At 1pm today, pt started to experience chills and measured fever of 100.9. Endorses fatigue and generalized weakness since then. Endorses pressure-type circumferential headache of gradual onset since procedure but states he always has the same headache after procedures such as dialysis and cystoscopy. Endorses dysuria and pink blood-tinged urine in lawrence bag since cystoscopy that has been improving/clearing up. Denies CP, SOB, dizziness, cough, abdominal pain, N/V, numbness/tingling, focal weakness, D /C, blood in stool. Pt has not tried tylenol or pain medications today. Pt usually walks with cane and lives alone at home. Present today with ex-/ significant other/best friend. States pressure is normally in the 90s/50s. Rectal temp 100.6, tachy to 90s/100s, BP 80s/50s, 96% O2 sat on RA, R20. UTI diagnosed today s/p cystoscopy, given 1 dose cipro. Most likely urosepsis due to VS, UTI dx, and hx of urosepsis in past. Initiate sepsis workup. No CP or difficulty breathing concerning for cardiac or pulmonary etiology of weakness. -Sepsis workup --EKG --CXR --CBC, CMP, Coags, UA/UC, BCx, Lact, VBG --250ml NS (due to ESRD on HD) --Meropenem 500mg (due to ESRD and hx of Pseudomonas grown from previous cultures) --Tylenol Labs reviewed. WBC 19.9, Cr 4.5 (3.8 on 05/22/18), Lact 1.6. CXR: mild cardiomegaly without e/o acute pathology EKG 2101: Afib with occasional ventricular-paced complexes, LAD, low voltage WRS , 66bpm, TWI in III/aVF, no DANIEL/STDs. No significant changes compared to . 09/29/18 21:[address] Enrike Rivero for admission. [phone] 09/29/18 22:[address] Rivero. Accepted admission. States BP is normally low in the 100s but not into the 80s. Agrees with current plan. Called Dr Marie - informed of admission. Pt feeling ok. Denies dizziness or difficulty breathing. BP still low in 80s/40 250 ml NS plus 2 cups PO water - start additional 250ml NS. *DC/Admit/Observation/Transfer Diagnosis at time of Disposition: Sepsis - Discharge Dispostion Condition at time of disposition: Stable Decision to Admit order: Yes - Referrals - Patient Instructions - Post Discharge Activity
[2018-09-29 21:46] LABS: ALBUMIN 3.5 g/dl (3.4-5.0); BILIRUBIN,TOTAL 0.8 mg/dL (0.2-1); BLOOD UREA NITROGEN 34.2 mg/dL (7-18); CALCIUM 8.9 mg/dL (8.5-10.1); CREATININE 4.5 mg/dL (0.55-1.3); POTASSIUM 3.5 mmol/L (3.5-5.1)
[2018-09-29 23:40] LABS: EPI CELLS 0.7 /HPF (0-5/HPF); HYALINE CASTS 46 /lpf (0-8); PH,URINE 6.5 (5.0-8.0); URINE APPEARANCE TURBID; URINE BACTERIA 12.2 /hpf (NEGATIVE); URINE BILIRUBIN NEGATIVE (NEGATIVE); URINE COLOR ORANGE; URINE GLUCOSE (UA) NEGATIVE (NEGATIVE); URINE KETONE TRACE (NEGATIVE); URINE LEUK ESTERASE 3+ (NEGATIVE); URINE NITRITE NEGATIVE (NEGATIVE); URINE PROTEIN 3+ (NEGATIVE); URINE UROBILINOGEN 0.2 mg/dL (0.2-1.0); URINE WBC 2754 /hpf (0-5)
[2018-09-29 23:47] LABS: INR 1.79 (0.83-1.09); PROTHROMBIN TIME (PATIENT) 21.2 SEC (9.7-13.0)
[2018-09-29 23:49] LABS: ACTIVATED PTT 36.9 SECONDS (25.2-36.5)
--- NOTE | 2018-09-30 00:40 | PDOC ---
Documentation entered by Anju Jones SCRIBE, acting as scribe for Jeimy Keys DO. Jeimy Keys DO: This documentation has been prepared by the Karen burrows Brenda, SCRIBE, under my direction and personally reviewed by me in its entirety. I confirm that the documentation accurately reflects all work , treatment, procedures, and medical decision making performed by me. Attending Attestation - Resident Resident Name: Sandy Pedersen - ED Attending Attestation I have performed the following: I have examined & evaluated the patient, The case was reviewed & discussed with the resident, I agree w/resident's findings & plan, Exceptions are as noted - HPI HPI: 09/29/18 23:38 The patient is an 88 year old male, with a significant PMH of ESRD (on HD MWF), urethral strictures (self-catheterization ever 3-4 days), CAD, AFib (s/p pacemaker, on Coumadin), COPD, diverticulosis, prostate CA (s/p radiation seed implantation), kidney stones with subsequent damage to left kidney, and hyperlipidemia who presents to the emergency department with fever and chills s/ p cystoscopy today. The patient also reports a headache and feeling flushed, accompanied by a UTI. The patient denies chest pain, shortness of breath and dizziness. Denies nausea , vomiting, diarrhea and constipation. Denies frequency, urgency and hematuria. Allergies: Azithromycin Social history: Denies tobacco use, alcohol use or illicit drug use. PCP: Dr. Ángel Zee Jet Man: Dr. Edith Miller - Physicial Exam PE: 09/29/18 20:52 GENERAL: Awake, in no acute distress HEAD: No signs of trauma EYES: ENT:clear without exudates. Moist mucosa NECK: Normal ROM, LUNGS:. Normal work of breathing. HEART: Regular rate and rhythm, ABDOMEN: Soft, nondistended CHEST WALL: BACK: No midline tenderness. EXTREMITIES:. No erythema, or tenderness NEUROLOGICAL: Alert, SKIN: Warm, Dry - Medical Decision Making 09/30/18 00:35 88-year-old male post cystoscopy with low-grade fever and weakness Patient does have an elevated white blood cell count as well as urine suggestive of urinary tract infection Due to resistance history in the past meropenem was given at renal dosing EKG shows atrial fibrillation with no acute ST segment elevations Patient admitted to medical service for further evaluation In regards to blood pressure, case was discussed with primary care physician by the emergency department resident to confirm that he generally runs at similar levels He is awake alert with a normal lactic acid level There are no indicators of septic shock at this time
[2018-09-30] MEDS ORDERED: ALBUTEROL SO4 8 GM HFA INHALER IH PRN (00:49)
[2018-09-30] MEDS ORDERED: WARFARIN NA 5 MG TABLET (UD) PO ONE ×2 (00:54→18:43)
[2018-09-30 06:53] LABS: HEMATOCRIT 30.3 % (35.4-49); HEMOGLOBIN 10.2 GM/dL (11.7-16.9); MCH 30.8 pg (25.7-33.7); MCHC 33.8 g/dl (32.0-35.9); MEAN CELL VOLUME 91.1 fl (80-96); MEAN PLT VOLUME 9.6 fl (7.5-11.1); PLATELET COUNT 108 K/MM3 (134-434); RBC 3.33 M/mm3 (4.00-5.60); RDW 14.8 % (11.9-15.9); WHITE BLOOD COUNT 12.9 K/mm3 (4.0-10.0)
[2018-09-30 07:07] LABS: INR 1.85 (0.83-1.09)
[2018-09-30 07:28] LABS: ALBUMIN 3.1 g/dl (3.4-5.0); BILIRUBIN,TOTAL 0.7 mg/dL (0.2-1); BLOOD UREA NITROGEN 39.4 mg/dL (7-18); CALCIUM 8.3 mg/dL (8.5-10.1); POTASSIUM 3.4 mmol/L (3.5-5.1); TOT PROT 5.5 g/dl (6.4-8.2)
[2018-09-30] MEDS ORDERED: TAMSULOSIN HCL 0.4 MG CAP ONE (09:55)
[2018-09-30] MEDS ORDERED: PATIENT'S OWN MEDICATION (NON-FORMULARY) (Methenamine Hippurate 1 GM) PO SCH (10:00)
[2018-09-30] MEDS: TAMSULOSIN HCL 0.4 MG CAP PO SCH (10:03)
[2018-09-30] MEDS ORDERED: ALLOPURINOL 100 MG TABLET (FP) ONE (10:08)
[2018-09-30] MEDS ORDERED: METOPROLOL TARTRATE 50 MG TABLET (FP) ONE (10:08)
[2018-09-30] MEDS: ALLOPURINOL 100 MG TABLET (FP) PO SCH (10:27)
[2018-09-30] MEDS: METOPROLOL TARTRATE 50 MG TABLET (FP) PO SCH ×2 (10:27→22:13)
[2018-09-30 12:29] LABS: ERYTHROCYTE SEDIMENTATION RATE QNS mm/hr (0-20)
--- NOTE | 2018-09-30 12:42 | CONSULT ---
Consult - text type - Consultation Consultation Note: Renal consult for ESRD on HD This is a 88 year old gentleman with history of ESRD on HD (MWF), CAD , Afib on Coumadin, COPD, Hx of prostate cancer, nephrolithiasis, urethreal stricture who presented with fever and chills form home s/p cystoscopy. Pt last had dialysis on Friday w/o complication. + Fevers at home and chills. Denies any dysuria or flank pain. No shortness of breath or chest pain. No abdominal pain, N/V/D. PMhx: as above Allergies: NKDA Family Hx: NC Social Hx: No T/A/D ROS: as per HPI, all other pertinent ros negative Home Medications Medication Instructions Recorded Albuterol Sulfate [Proair 90 mcg IH QID PRN 05/21/16 Respiclick] Allopurinol [Zyloprim -] 100 mg PO DAILY 05/21/16 Methenamine Hippurate [Hiprex [Nf] 1 gm PO BID 05/21/16 -] Metoprolol Tartrate [Lopressor] 50 mg PO BID 05/21/16 Tamsulosin HCl [Flomax] 0.4 mg PO DAILY 05/21/16 Triamcinolone Acetonide [Nasacort] 2 sprays NS DAILY 05/21/16 Fluticasone/Vilanterol [Breo 1 each IH AM 11/04/17 Ellipta 200-25 Mcg INH] Torsemide 50 mg PO DAILY 11/04/17 Warfarin Na [Coumadin -] 3 mg PO Q2D@1800 tablet 05/22/18 Warfarin Na [Coumadin -] 4.5 mg PO DAILY@1800 tablet 05/22/18 Warfarin Na [Coumadin -] 4.5 mg PO DAILY@1800 tablet 05/22/18 Lubiprostone [Amitiza] 24 mcg PO BID 09/30/18 Vital Signs Temperature 98.4 F 09/30/18 06:22 Pulse Rate 80 09/30/18 10:44 Respiratory Rate 17 09/30/18 10:44 Blood Pressure 99/53 L 09/30/18 10:44 O2 Sat by Pulse Oximetry (%) 96 09/30/18 10:44 Intake & Output 09/27/18 09/28/18 09/29/18 09/30/18 23:59 23:59 23:59 23:59 Weight 75.296 kg NAD awake and alert neck supple, no JVD RRR, no M/R CTA soft NT/ND no LE edema, clubbing or cyanosis CBC, BMP 09/30/18 06:00 09/30/18 06:00 Current Medications Albuterol Sulfate (Ventolin Hfa Inhaler -) 1 puff IH Q6H PRN PRN Reason: SHORTNESS OF BREATH Allopurinol (Zyloprim -) 100 mg PO DAILY [facility] Last Admin: 09/30/18 10:27 Dose: 100 mg Metoprolol Tartrate (Lopressor -) 50 mg PO BID [facility] Last Admin: 09/30/18 10:27 Dose: Not Given Non-Formulary Medication (Fluticasone/Vilanterol [Breo Ellipta 200-25 Mcg Inh]) 1 each IH AM [facility] Non-Formulary Medication (Methenamine Hippurate) 1 gm PO BID [facility] Tamsulosin HCl (Flomax -) 0.4 mg PO DAILY@0830 [facility] Last Admin: 09/30/18 10:03 Dose: 0.4 mg 88 year old gentleman with history of ESRD on HD (MWF), CAD, Afib on Coumadin, COPD, Hx of prostate cancer, nephrolithiasis, urethreal stricture who presented with fever and chills form home s/p cystoscopy. #Fever/Chills/Sepsis with suspected UTI #ESRD on HD #Hypokaleimia #Chronic anemia #Thrombocytopenia will defer dialysis until tomorrow given low BP and acute sepsis syndrome. No overt electrolyte disturbance or fluid overload to warrant dialysis today. continue empiric antibiotics per primary team urology follow up will use higher potassium bath with dialysis will continue ADRIANA with dialysis trend platelet levels Thank you Jacques Esquivel DO
--- NOTE | 2018-09-30 13:33 | EKG ---
Test Reason : Blood Pressure : / mmHG Vent. Rate : 077 BPM Atrial Rate : 072 BPM P-R Int : 000 ms QRS Dur : 078 ms QT Int : 362 ms P-R-T Axes : 000 -63 -41 degrees QTc Int : 409 ms ATRIAL FIBRILLATION WITH OCCASIONAL ventricular-paced complexes LEFT AXIS DEVIATION LOW VOLTAGE QRS NONSPECIFIC ST AND T WAVE ABNORMALITY ABNORMAL ECG WHEN COMPARED WITH ECG OF 18-MAY-2018 17:04, THERE WERE NO SIGNIFICANT CHANGES. Confirmed by KARLIE DAVE MD ([id number]) on 09/30/2018 1:33:02 PM Referred By: Confirmed By:KARLIE DAVE MD
[2018-09-30] MEDS ORDERED: PIPERACILLIN/TAZOB 2.25 GM 2.25 GM in DEXTROSE 5%-WATER - 50 ML IVPB SCH (14:15)
[2018-09-30] MEDS ORDERED: PIPERACILLIN/TAZOB 2.25 GM 2.25 GM/50 ML BAG IVPB ONE (14:50)
[2018-09-30] MEDS: PIPERACILLIN/TAZOB 2.25 GM 2.25 GM in DEXTROSE 5%-WATER - 50 ML IVPB SCH ×2 (14:57→18:14)
--- NOTE | 2018-09-30 15:25 | PN ---
Progress Note (short form) - Note Progress Note: ID consult dictated imp/reccd 88 yo man ESRD/HD admitted after cystoscopy/urethral dilatation yesterday for urethral stricture he began having chills after the procedure , he took cipro s instructed but continued to have chills and came to the ED temp 100.9 lawrence placed after procedure b urologist feels better today given meropenem last night suspect fevers/chills secondary to UTI from cystoscopy can switch to zosyn prior history of pseudomonas UTI esrd/hd history of urethral stricture history of kidney stones history of prostate cancer with seed implants Problem List - Problems (1) Fever in adult Code(s): R50.9 - FEVER, UNSPECIFIED (2) Urinary tract infection Code(s): N39.0 - URINARY TRACT INFECTION, SITE NOT SPECIFIED Qualifiers: Urinary tract infection type: acute cystitis Hematuria presence: without hematuria Qualified Code(s): N30.00 - Acute cystitis without hematuria (3) S/P cystoscopy Code(s): Z98.890 - OTHER SPECIFIED POSTPROCEDURAL STATES
--- NOTE | 2018-09-30 16:25 | CONS ---
INFECTIOUS DISEASE CONSULTATION DATE OF CONSULTATION: DATE OF DICTATION: 09/30/2018 This is an 88-year-old man with end-stage renal disease. He has been on dialysis for the last 1 year. He was admitted after cystoscopy and urethral dilatation yesterday, which was done at the urologist's office. He has a history of chronic urethral stricture and self-catheterizes himself at home. Generally, catheterizes himself before dialysis 3 times a week. He has been having intermittent incontinence as well. He has a history of pseudomonas UTI in the past. He began having chills after the procedure. After the procedure, as well, the urologist placed a Camp. He took Cipro as instructed and went home. At home, he continued to have chills, and he came to the emergency room. He had a temperature of 100.9 and a white count of 18, 000 in the ER. He was noted to have pyuria, and he received a dose of meropenem. I am asked to see him for further evaluation. He is feeling much better today. He has a Camp in place, which is draining clear urine. PAST MEDICAL HISTORY: Notable for prostate cancer in 2006. At which time, he had prostate seed implants placed. He has had urinary incontinence since the procedure. He has history of coronary artery disease, atrial fibrillation, COPD. He has had 2 permanent pacemakers placed, 1 in 2007, 1 in 2016. He has a urethral stricture and self-catheterizes himself. He has a history of kidney stones, hyperlipidemia, end-stage renal disease. He has been on dialysis via a fistula for the last 1 year. He has had multiple episodes of urinary tract infection and bacteremia since 2014. He has had enterococcus, klebsiella, and pseudomonas. Additional medical history is notable for diverticulitis and skin cancer. ALLERGIES: He is allergic to AZITHROMYCIN. PAST SURGICAL HISTORY: Also notable for hernia repair, left total knee replacement, left total hip replacement, and AV fistula in the right arm. SOCIAL HISTORY: He is a former smoker. He lives with his . REVIEW OF SYSTEMS: As per HPI. He has no headache. He has no abdominal or chest pain. Camp is draining clear urine. MEDICATIONS: Include Amitiza, Ellipta, Coumadin, Nasacort, torsemide, tamsulosin, metoprolol, Hiprex, allopurinol, and ProAir. PHYSICAL EXAMINATION: General: He is awake and alert. He is a pleasant, elderly man in no acute distress. HEENT: He is normocephalic. His eyes are anicteric. Neck: Supple. Lungs: Clear to auscultation. Heart: Irregularly irregular. Abdomen: Soft. It is protuberant. It is nontender. Genitourinary: He has a Camp draining clear urine. Extremities: Without edema. He has a right AV fistula with a good thrill. LABORATORY DATA: His labs are notable for a sodium of 136. BUN is 39 and creatinine 5. LFTs are normal. Urinalysis has over 2000 white cells. White count on admission was 19.9; this morning was 12.9, with a hemoglobin of 10.2, platelets are 108. In summary, this is an 88-year-old man admitted with fevers, chills secondary to urinary tract infection, prior history of pseudomonas urinary tract infection. Can switch to Zosyn at this time, adjusted for his end-stage renal disease. 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 He has history of urethral stricture, currently has Camp in place. History of kidney stones. History of prostate cancer with seed implants. Further recommendations to follow. Lane ARIAS/[id number] MTDD
--- NOTE | 2018-09-30 18:42 | HP ---
Admitting History and Physical - Primary Care Physician PCP: Enrike Rivero - Admission Chief Complaint: Fever, chills, weakness History of Present Illness: Pt with significant Hx/o ESRD on HD, CAD, A fib on AC, urethral stricture, self urethral catheterization, UTI had cystoscopy and urethral dilatation yesterday in urologist office, was given abtx fro UTI, came to ER feew hours later with fever, chills, weakness. Pt was notice dtp have UTI and was admitted for IV abtx History Source: Patient, Family Member (ex ) - Past Medical History Cardiovascular: Yes: AFIB (on AC), CAD, HTN, Hyperlipdemia, Other (SSS with PPM) Pulmonary: Yes: COPD Renal/: Yes: BPH, Cancer (prostate), Renal Calculi, Other (urinary incontinence) Heme/Onc: Yes: Cancer (prostate) - Past Surgical History Past Surgical History: Yes: Appendectomy, Hernia Repair, Joint Replacement - Smoking History Smoking history: Never smoked Have you smoked in the past 12 months: No Aproximately how many cigarettes per day: 0 If you are a former smoker, when did you quit?: 40 YEARS AGO - Alcohol/Substance Use Hx Alcohol Use: No History of Substance Use: reports: None - Social History ADL: Independent History of Recent Travel: No Home Medications - Allergies Allergies/Adverse Reactions: Allergies Allergy/AdvReac Type Severity Reaction Status Date / Time azithromycin AdvReac Intermediate HEADACHE Verified 09/29/18 17:10 - Home Medications Home Medications: Ambulatory Orders Albuterol Sulfate [Proair Respiclick] 90 mcg IH QID PRN 05/21/16 Allopurinol [Zyloprim -] 100 mg PO DAILY 05/21/16 Methenamine Hippurate [Hiprex [Nf] -] 1 gm PO BID 05/21/16 Metoprolol Tartrate [Lopressor] 50 mg PO BID 05/21/16 Tamsulosin HCl [Flomax] 0.4 mg PO DAILY 05/21/16 Triamcinolone Acetonide [Nasacort] 2 sprays NS DAILY 05/21/16 Fluticasone/Vilanterol [Breo Ellipta 200-25 Mcg INH] 1 each IH AM 11/04/17 Torsemide 50 mg PO DAILY 11/04/17 Warfarin Na [Coumadin -] 3 mg PO Q2D@1800 tablet 05/22/18 Warfarin Na [Coumadin -] 4.5 mg PO DAILY@1800 tablet 05/22/18 Warfarin Na [Coumadin -] 4.5 mg PO DAILY@1800 tablet 05/22/18 Lubiprostone [Amitiza] 24 mcg PO BID 09/30/18 Review of Systems - Review of Systems Constitutional: reports: Weakness. denies: Chills (since yesterday), Fever ( since yesterday) Eyes: denies: Blurred Vision, Eye Pain HENT: denies: Ear Discharge, Nasal Congestion, Throat Pain Neck: denies: Pain on Movement, Stiffness Cardiovascular: denies: Chest Pain, Edema, Palpitations Respiratory: denies: Cough, SOB Gastrointestinal: denies: Abdominal Pain, Diarrhea, Nausea Genitourinary: denies: Burning, Hematuria Musculoskeletal: denies: Back Pain, Extremity Pain Integumentary: denies: Bruising, Erythema Neurological: denies: Change in LOC, Change in Speech Endocrine: denies: Excessive Sweating, Intolerance to Cold Hematology/Lymphatic: denies: Easily Bruised, Excessive Bleeding Psychiatric: denies: Anxiety, Depression Physical Examination Vital Signs: Vital Signs Temperature 97.8 F 09/30/18 17:02 Pulse Rate 83 09/30/18 17:02 Respiratory Rate 16 09/30/18 17:02 Blood Pressure 84/49 L 09/30/18 17:02 O2 Sat by Pulse Oximetry (%) 97 09/30/18 17:02 Constitutional: Yes: No Distress, Calm Eyes: Yes: Conjunctiva Clear, EOM Intact HENT: Yes: Normocephalic. No: Epistaxis Neck: Yes: Trachea Midline. No: Lymphadenopathy Cardiovascular: Yes: Pulse Irregular, S1, S2 Respiratory: Yes: Regular, CTA Bilaterally Gastrointestinal: Yes: Normal Bowel Sounds, Soft. No: Tenderness ...Rectal Exam: Yes: Deferred Renal/: No: CVA Tenderness - Left, CVA Tenderness - Right Extremities: No: Cyanosis, Erythema Edema: No Integumentary: Yes: Skin Tear (for coouple of days). No: Bruising Neurological: Yes: Alert, Oriented, Other (motor and sensory symmetric in UE/ LE / face) Labs: CBC, BMP 09/30/18 06:00 09/30/18 06:00 Imaging - Results Chest X-ray: Report Reviewed Problem List - Problems (1) Urinary tract infection Code(s): N39.0 - URINARY TRACT INFECTION, SITE NOT SPECIFIED Qualifiers: Urinary tract infection type: acute cystitis Hematuria presence: without hematuria Qualified Code(s): N30.00 - Acute cystitis without hematuria (2) S/P dilation of urethra Code(s): Z98.890 - OTHER SPECIFIED POSTPROCEDURAL STATES (3) Urethral stricture Code(s): N35.9 - URETHRAL STRICTURE, UNSPECIFIED * DO NOT USE * Qualifiers: Urethral stricture type: other stricture (4) CAD (coronary artery disease) Code(s): I25.10 - ATHSCL HEART DISEASE OF [place] CORONARY ARTERY W/O ANG PCTRS (5) CHF (congestive heart failure) Code(s): I50.9 - HEART FAILURE, UNSPECIFIED (6) ESRD (end stage renal disease) on dialysis Code(s): N18.6 - END STAGE RENAL DISEASE; Z99.2 - DEPENDENCE ON RENAL DIALYSIS (7) Subtherapeutic international normalized ratio (INR) Code(s): R79.1 - ABNORMAL COAGULATION PROFILE (8) A-fib Code(s): I48.91 - UNSPECIFIED ATRIAL FIBRILLATION Qualifiers: Atrial fibrillation type: permanent Qualified Code(s): I48.2 - Chronic atrial fibrillation (9) COPD exacerbation Code(s): J44.1 - CHRONIC OBSTRUCTIVE PULMONARY DISEASE W (ACUTE) EXACERBATION Assessment/Plan IV abtx ID consult Renal consult Extra Coumadin dose; monitor INR. AM labs
[2018-09-30] MEDS: BACITRACIN 15 GM TUBE TOPICAL OINTMENT TP SCH (22:13)
[2018-10-01] MEDS ORDERED: PIPERACILLIN/TAZOBACTAM 2.25 GM VIAL IVPB ONE ×3 (01:34→17:39)
[2018-10-01] MEDS ORDERED: DEXTROSE 5%-WATER - 50 ML IVPB ONE ×3 (01:34→17:39)
[2018-10-01] MEDS: PIPERACILLIN/TAZOB 2.25 GM 2.25 GM in DEXTROSE 5%-WATER - 50 ML IVPB SCH ×3 (01:51→17:40)
[2018-10-01] MEDS ORDERED: SODIUM CHLORIDE 250 ML IV PRN ×2 (07:31→14:01)
[2018-10-01] MEDS: TAMSULOSIN HCL 0.4 MG CAP PO SCH (08:12)
[2018-10-01] MEDS ORDERED: EPOETIN ALFA 3,000 UNIT/1 ML ML IVPUSH ONE (08:30)
[2018-10-01 09:20] LABS: HEMATOCRIT 30.2 % (35.4-49); HEMOGLOBIN 10.4 GM/dL (11.7-16.9); MCH 31.2 pg (25.7-33.7); MCHC 34.4 g/dl (32.0-35.9); MEAN CELL VOLUME 90.6 fl (80-96); MEAN PLT VOLUME 9.2 fl (7.5-11.1); PLATELET COUNT 112 K/MM3 (134-434); RBC 3.34 M/mm3 (4.00-5.60); WHITE BLOOD COUNT 6.8 K/mm3 (4.0-10.0)
[2018-10-01 09:44] LABS: INR 1.65 (0.83-1.09); PROTHROMBIN TIME (PATIENT) 19.6 SEC (9.7-13.0)
[2018-10-01 09:50] LABS: ALBUMIN 3.1 g/dl (3.4-5.0); BILIRUBIN,TOTAL 0.4 mg/dL (0.2-1); BLOOD UREA NITROGEN 46.5 mg/dL (7-18); CALCIUM 8.6 mg/dL (8.5-10.1); CREATININE 5.3 mg/dL (0.55-1.3); POTASSIUM 3.3 mmol/L (3.5-5.1); TOT PROT 5.6 g/dl (6.4-8.2)
[2018-10-01] MEDS: ALLOPURINOL 100 MG TABLET (FP) PO SCH (12:44)
[2018-10-01] MEDS: METOPROLOL TARTRATE 50 MG TABLET (FP) PO SCH ×2 (12:44→22:28)
[2018-10-01] MEDS: BACITRACIN 15 GM TUBE TOPICAL OINTMENT TP SCH (12:45)
[2018-10-01] MEDS: [UNRECOGNIZED DRUG - OTHER] IH SCH (12:45)
--- NOTE | 2018-10-01 14:00 | PN ---
Progress Note (short form) - Note Progress Note: Renal follow up for ESRD on HD pt seen and examined at the bedside s/p dialysis today, tolerated 1L UF no acute complaints no fever, chills Vital Signs Temperature 97.9 F 10/01/18 12:47 Pulse Rate 81 10/01/18 12:47 Respiratory Rate 16 10/01/18 12:47 Blood Pressure 117/67 10/01/18 12:47 O2 Sat by Pulse Oximetry (%) 97 10/01/18 09:00 Intake & Output 09/28/18 09/29/18 09/30/18 10/01/18 23:59 23:59 23:59 23:59 Intake Total 320 670 Output Total 500 2500 Balance -180 -1830 Weight 75.296 kg 75.296 kg NAD RRR, no M/R CTA soft NT/ND no LE edema CBC, BMP 10/01/18 07:52 10/01/18 07:52 Current Medications Albuterol Sulfate (Ventolin Hfa Inhaler -) 1 puff IH Q6H PRN PRN Reason: SHORTNESS OF BREATH Allopurinol (Zyloprim -) 100 mg PO DAILY [facility] Last Admin: 10/01/18 12:44 Dose: 100 mg Bacitracin (Bacitracin -) 1 applic TP DAILY [facility] Last Admin: 10/01/18 12:45 Dose: 1 applic Piperacillin Sod/Tazobactam (Sod 2.25 gm/ Dextrose) 50 mls @ 100 mls/hr IVPB Q8H-IV K[facility]AN[facility]; Protocol Last Admin: 10/01/18 12:44 Dose: 100 mls/hr Metoprolol Tartrate (Lopressor -) 50 mg PO BID [facility] Last Admin: 10/01/18 12:44 Dose: 50 mg (Fluticasone/Vilanterol [Breo Ellipta 200-25 Mcg ( Patient's Own Medication (Non - Formulary) 1 each IH DAILY [facility] Last Admin: 10/01/18 12:45 Dose: 1 each Non-Formulary Medication (Methenamine Hippurate) 1 gm PO BID [facility] Tamsulosin HCl (Flomax -) 0.4 mg PO DAILY@0830 [facility] Last Admin: 10/01/18 08:12 Dose: 0.4 mg 88 year old gentleman with history of ESRD on HD (MWF), CAD, Afib on Coumadin, COPD, Hx of prostate cancer, nephrolithiasis, urethreal stricture who presented with fever and chills form home s/p cystoscopy. #Fever/Chills/Sepsis with suspected UTI #ESRD on HD #Hypokaleimia #Chronic anemia #Thrombocytopenia tolerated dialysis well today, will plan for abridged tx tomorrow to resume MWF schedule urine culture w/o growth thus far urology follow up will use higher potassium bath with dialysis will continue ADRIANA with dialysis trend platelet levels Thank you Jacques Esquivel DO
--- NOTE | 2018-10-01 15:44 | PN ---
Progress Note (short form) - Note Progress Note: feels well nocomplaints Vital Signs Period Temp Pulse Resp BP Sys/Askew Pulse Ox Last 24 Hr 97 F-99.1 F 62-90 16-20 79-118/41-69 96-97 cor-rrr lungs clear abd soft,nt +lawrence CBC, BMP 10/01/18 07:52 10/01/18 07:52 Microbiology 09/29/18 10:37 Urine - Urine Clean Catch Urine Culture - Final NO GROWTH OBTAINED 09/29/18 21:20 Blood - Peripheral Venous Blood Culture - Preliminary NO GROWTH OBTAINED AFTER 24 HOURS, INCUBATION TO CONTINUE FOR 4 DAYS. 09/29/18 21:20 Blood - Peripheral Venous Blood Culture - Preliminary NO GROWTH OBTAINED AFTER 24 HOURS, INCUBATION TO CONTINUE FOR 4 DAYS. a/p s/p cystoscopy with urethral stricture dilatation- pod #2 doing well cultures here negative but he got cipro called urologist office, urine culture is not yet back- should be back in am- hopefully po antiibotics in am with outpt urology f/u esrd/hd history of urethral stricture history of kidney stones history of prostate cancer with seed implants Problem List - Problems (1) Fever in adult Code(s): R50.9 - FEVER, UNSPECIFIED (2) Urinary tract infection Code(s): N39.0 - URINARY TRACT INFECTION, SITE NOT SPECIFIED Qualifiers: Urinary tract infection type: acute cystitis Hematuria presence: without hematuria Qualified Code(s): N30.00 - Acute cystitis without hematuria (3) S/P cystoscopy Code(s): Z98.890 - OTHER SPECIFIED POSTPROCEDURAL STATES
--- NOTE | 2018-10-01 17:19 | PN ---
Progress Note, Physician History of Present Illness: Pt w/o fever, chills, SOB, CP, palpitations, abd pain, diarrhea. - Current Medication List Current Medications: Active Medications Albuterol Sulfate (Ventolin Hfa Inhaler -) 1 puff IH Q6H PRN PRN Reason: SHORTNESS OF BREATH Allopurinol (Zyloprim -) 100 mg PO DAILY [facility] Last Admin: 10/01/18 12:44 Dose: 100 mg Bacitracin (Bacitracin -) 1 applic TP DAILY [facility] Last Admin: 10/01/18 12:45 Dose: 1 applic Piperacillin Sod/Tazobactam (Sod 2.25 gm/ Dextrose) 50 mls @ 100 mls/hr IVPB Q8H-IV [facility]; Protocol Last Admin: 10/01/18 12:44 Dose: 100 mls/hr Sodium Chloride (Normal Saline -) 250 mls @ 3,000 mls/hr IV PRN PRN PRN Reason: Hypotension during Dialysis Stop: 10/02/18 14:01 Metoprolol Tartrate (Lopressor -) 50 mg PO BID [facility] Last Admin: 10/01/18 12:44 Dose: 50 mg (Fluticasone/Vilanterol [Breo Ellipta 200-25 Mcg ( Patient's Own Medication (Non - Formulary) 1 each IH DAILY [facility] Last Admin: 10/01/18 12:45 Dose: 1 each Non-Formulary Medication (Methenamine Hippurate) 1 gm PO BID [facility] Tamsulosin HCl (Flomax -) 0.4 mg PO DAILY@0830 [facility] Last Admin: 10/01/18 08:12 Dose: 0.4 mg - Objective Vital Signs: Vital Signs Temperature 98.4 F 10/01/18 14:00 Pulse Rate 84 10/01/18 14:00 Respiratory Rate 18 10/01/18 14:00 Blood Pressure 118/67 10/01/18 14:00 O2 Sat by Pulse Oximetry (%) 97 10/01/18 09:00 Constitutional: Yes: No Distress, Calm Cardiovascular: Yes: Regular Rate and Rhythm, S1, S2 Respiratory: Yes: Regular, CTA Bilaterally, Other. No: Rales Gastrointestinal: Yes: Normal Bowel Sounds, Soft. No: Tenderness Edema: No Neurological: Yes: Alert, Oriented Labs: CBC, BMP 10/01/18 07:52 10/01/18 07:52 INR, PTT INR 1.65 (0.83-1.09) H 10/01/18 07:52 Problem List - Problems (1) Urinary tract infection Code(s): N39.0 - URINARY TRACT INFECTION, SITE NOT SPECIFIED Qualifiers: Urinary tract infection type: acute cystitis Hematuria presence: without hematuria Qualified Code(s): N30.00 - Acute cystitis without hematuria (2) S/P dilation of urethra Code(s): Z98.890 - OTHER SPECIFIED POSTPROCEDURAL STATES (3) Urethral stricture Code(s): N35.9 - URETHRAL STRICTURE, UNSPECIFIED * DO NOT USE * Qualifiers: Urethral stricture type: other stricture (4) CAD (coronary artery disease) Code(s): I25.10 - ATHSCL HEART DISEASE OF [place] CORONARY ARTERY W/O ANG PCTRS (5) CHF (congestive heart failure) Code(s): I50.9 - HEART FAILURE, UNSPECIFIED (6) ESRD (end stage renal disease) on dialysis Code(s): N18.6 - END STAGE RENAL DISEASE; Z99.2 - DEPENDENCE ON RENAL DIALYSIS (7) Subtherapeutic international normalized ratio (INR) Code(s): R79.1 - ABNORMAL COAGULATION PROFILE (8) A-fib Code(s): I48.91 - UNSPECIFIED ATRIAL FIBRILLATION Qualifiers: Atrial fibrillation type: permanent Qualified Code(s): I48.2 - Chronic atrial fibrillation (9) COPD exacerbation Code(s): J44.1 - CHRONIC OBSTRUCTIVE PULMONARY DISEASE W (ACUTE) EXACERBATION (10) Anemia, chronic renal failure Code(s): N18.9 - CHRONIC KIDNEY DISEASE, UNSPECIFIED; D63.1 - ANEMIA IN CHRONIC KIDNEY DISEASE Assessment/Plan Pt is improving. IV abtx; to f/u ID ID, Renal consults are appreciated Extra Coumadin dose; monitor INR. AM labs Case was d/w pt's nurse
[2018-10-01] MEDS ORDERED: WARFARIN NA 3 MG TABLET PO ONE (18:00)
[2018-10-02] MEDS ORDERED: DEXTROSE 5%-WATER - 50 ML IVPB ONE ×3 (00:59→18:51)
[2018-10-02] MEDS ORDERED: PIPERACILLIN/TAZOBACTAM 2.25 GM VIAL IVPB ONE ×3 (00:59→18:51)
[2018-10-02] MEDS: PIPERACILLIN/TAZOB 2.25 GM 2.25 GM in DEXTROSE 5%-WATER - 50 ML IVPB SCH ×3 (01:23→19:02)
[2018-10-02 09:14] LABS: INR 1.99 (0.83-1.09); PROTHROMBIN TIME (PATIENT) 23.6 SEC (9.7-13.0)
[2018-10-02 10:00] LABS: HEMATOCRIT 31.1 % (35.4-49); HEMOGLOBIN 10.6 GM/dL (11.7-16.9); MCH 30.9 pg (25.7-33.7); MEAN PLT VOLUME 9.6 fl (7.5-11.1); PLATELET COUNT 113 K/MM3 (134-434); RBC 3.42 M/mm3 (4.00-5.60); WHITE BLOOD COUNT 4.9 K/mm3 (4.0-10.0)
[2018-10-02 10:02] LABS: BLOOD UREA NITROGEN 25.1 mg/dL (7-18); CALCIUM 8.4 mg/dL (8.5-10.1); CREATININE 3.6 mg/dL (0.55-1.3); POTASSIUM 3.2 mmol/L (3.5-5.1)
[2018-10-02] MEDS: FLUTICASONE PROP 0.05% 16 GM NASAL SPRAY NS SCH (12:48)
[2018-10-02] MEDS: METOPROLOL TARTRATE 50 MG TABLET (FP) PO SCH ×2 (12:48→21:32)
[2018-10-02] MEDS: ALLOPURINOL 100 MG TABLET (FP) PO SCH (12:48)
[2018-10-02] MEDS: BACITRACIN 15 GM TUBE TOPICAL OINTMENT TP SCH (12:49)
[2018-10-02] MEDS: [UNRECOGNIZED DRUG - OTHER] IH SCH (12:50)
--- NOTE | 2018-10-02 12:50 | PN ---
Progress Note (short form) - Note Progress Note: Renal follow up for ESRD on HD pt seen and examined during dialysis BP low but stable UF 0.5L taken no fever or chills Vital Signs Temperature 98.5 F 10/02/18 09:45 Pulse Rate 77 10/02/18 11:55 Respiratory Rate 18 10/02/18 11:55 Blood Pressure 106/63 10/02/18 11:55 O2 Sat by Pulse Oximetry (%) 98 10/01/18 21:00 Intake & Output 09/29/18 09/30/18 10/01/18 10/02/18 23:59 23:59 23:59 23:59 Intake Total 320 1160 800 Output Total 500 3000 1500 Balance -180 -1840 -700 Weight 75.296 kg 75.296 kg NAD RRR, no M/R CTA soft NT/ND no LE edema CBC, BMP 10/02/18 07:27 10/02/18 09:34 Current Medications Albuterol Sulfate (Ventolin Hfa Inhaler -) 1 puff IH Q6H PRN PRN Reason: SHORTNESS OF BREATH Allopurinol (Zyloprim -) 100 mg PO DAILY [facility] Last Admin: 10/01/18 12:44 Dose: 100 mg Bacitracin (Bacitracin -) 1 applic TP DAILY [facility] Last Admin: 10/01/18 12:45 Dose: 1 applic Fluticasone Propionate (Flonase -) 2 spray NS DAILY [facility] Piperacillin Sod/Tazobactam (Sod 2.25 gm/ Dextrose) 50 mls @ 100 mls/hr IVPB Q8H-IV [facility]ANDR[facility]; Protocol Last Admin: 10/02/18 01:23 Dose: 100 mls/hr Sodium Chloride (Normal Saline -) 250 mls @ 3,000 mls/hr IV PRN PRN PRN Reason: Hypotension during Dialysis Stop: 10/02/18 14:01 Metoprolol Tartrate (Lopressor -) 50 mg PO BID [facility] Last Admin: 10/01/18 22:28 Dose: 50 mg (Fluticasone/Vilanterol [Breo Ellipta 200-25 Mcg ( Patient's Own Medication (Non - Formulary) 1 each IH DAILY [facility] Last Admin: 10/01/18 12:45 Dose: 1 each Non-Formulary Medication (Methenamine Hippurate) 1 gm PO BID [facility] Tamsulosin HCl (Flomax -) 0.4 mg PO DAILY@0830 [facility] Last Admin: 10/01/18 08:12 Dose: 0.4 mg 88 year old gentleman with history of ESRD on HD (MWF), CAD, Afib on Coumadin, COPD, Hx of prostate cancer, nephrolithiasis, urethreal stricture who presented with fever and chills form home s/p cystoscopy. #Fever/Chills/Sepsis with suspected UTI #ESRD on HD #Hypokaleimia #Chronic anemia #Thrombocytopenia tolerated dialysis well today next dialysis planned for tomorrow blood and cultures negative thus far Abx as per primary/ID Thank you Jacques Esquivel DO
[2018-10-02] MEDS: TAMSULOSIN HCL 0.4 MG CAP PO SCH (12:51)
--- NOTE | 2018-10-02 14:08 | PN ---
Progress Note (short form) - Note Progress Note: feels well Vital Signs Period Temp Pulse Resp BP Sys/Askew Pulse Ox Last 24 Hr 97.3 F-98.5 F 60-87 18-18 84-117/44-67 98 cor-rrr lungs clear abd soft,nt +lawrence ext no edema CBC, BMP 10/02/18 07:27 10/02/18 09:34 Microbiology 09/29/18 21:20 Blood - Peripheral Venous Blood Culture - Preliminary NO GROWTH OBTAINED AFTER 48 HOURS, INCUBATION TO CONTINUE FOR 3 DAYS. 09/29/18 21:20 Blood - Peripheral Venous Blood Culture - Preliminary NO GROWTH OBTAINED AFTER 48 HOURS, INCUBATION TO CONTINUE FOR 3 DAYS. 09/29/18 10:37 Urine - Urine Clean Catch Urine Culture - Final NO GROWTH OBTAINED a/p s/p cystoscopy with urethral stricture dilatation- pod #3 doing well cultures here negative but he got cipro called dr [facility] office for urine culture results- they will fax family states lawrence to stay in for 2 weeks esrd/hd history of urethral stricture history of kidney stones history of prostate cancer with seed implants fax reviewed-results placed in chart urine culture 09/29- ecoli tam sensitive can switch to keflex 500 mg daily for 7 days should f/u with urologist please call back if needed d/w at bedside half an hour spent in contacting urolgoist , getting results and speaking with family Problem List - Problems (1) Fever in adult Code(s): R50.9 - FEVER, UNSPECIFIED (2) Urinary tract infection Code(s): N39.0 - URINARY TRACT INFECTION, SITE NOT SPECIFIED Qualifiers: Urinary tract infection type: acute cystitis Hematuria presence: without hematuria Qualified Code(s): N30.00 - Acute cystitis without hematuria (3) S/P cystoscopy Code(s): Z98.890 - OTHER SPECIFIED POSTPROCEDURAL STATES
--- NOTE | 2018-10-02 20:03 | PN ---
Progress Note, Physician History of Present Illness: Pt states that had HD again today, tolerated it well. Pt w/o fever, chills, SOB, CP, palpitations, abd pain, diarrhea. - Current Medication List Current Medications: Active Medications Albuterol Sulfate (Ventolin Hfa Inhaler -) 1 puff IH Q6H PRN PRN Reason: SHORTNESS OF BREATH Allopurinol (Zyloprim -) 100 mg PO DAILY [facility] Last Admin: 10/02/18 12:48 Dose: 100 mg Bacitracin (Bacitracin -) 1 applic TP DAILY [facility] Last Admin: 10/02/18 12:49 Dose: 1 applic Fluticasone Propionate (Flonase -) 2 spray NS DAILY [facility] Last Admin: 10/02/18 12:48 Dose: 2 spr Piperacillin Sod/Tazobactam (Sod 2.25 gm/ Dextrose) 50 mls @ 100 mls/hr IVPB Q8H-IV [facility]; Protocol Last Admin: 10/02/18 19:02 Dose: 100 mls/hr Sodium Chloride (Normal Saline -) 250 mls @ 3,000 mls/hr IV PRN PRN PRN Reason: Hypotension during Dialysis Stop: 10/02/18 14:01 Metoprolol Tartrate (Lopressor -) 50 mg PO BID [facility] Last Admin: 10/02/18 12:48 Dose: 50 mg (Fluticasone/Vilanterol [Breo Ellipta 200-25 Mcg ( Patient's Own Medication (Non - Formulary) 1 each IH DAILY [facility] Last Admin: 10/02/18 12:50 Dose: 1 each Non-Formulary Medication (Methenamine Hippurate) 1 gm PO BID [facility] Tamsulosin HCl (Flomax -) 0.4 mg PO DAILY@0830 [facility] Last Admin: 10/02/18 12:51 Dose: 0.4 mg - Objective Vital Signs: Vital Signs Temperature 98.3 F 10/02/18 14:25 Pulse Rate 78 10/02/18 14:25 Respiratory Rate 18 10/02/18 14:25 Blood Pressure 114/57 L 10/02/18 14:25 O2 Sat by Pulse Oximetry (%) 98 10/02/18 09:00 Constitutional: Yes: No Distress, Calm Cardiovascular: Yes: Regular Rate and Rhythm, S1, S2 Respiratory: Yes: Regular, Rales, Other (coarse BS) Gastrointestinal: Yes: Normal Bowel Sounds, Soft. No: Tenderness Edema: No Neurological: Yes: Alert, Oriented Labs: CBC, BMP 10/02/18 07:27 10/02/18 09:34 INR, PTT INR 1.99 (0.83-1.09) H 10/02/18 07:27 Problem List - Problems (1) Urinary tract infection Code(s): N39.0 - URINARY TRACT INFECTION, SITE NOT SPECIFIED Qualifiers: Urinary tract infection type: acute cystitis Hematuria presence: without hematuria Qualified Code(s): N30.00 - Acute cystitis without hematuria (2) S/P dilation of urethra Code(s): Z98.890 - OTHER SPECIFIED POSTPROCEDURAL STATES (3) Urethral stricture Code(s): N35.9 - URETHRAL STRICTURE, UNSPECIFIED * DO NOT USE * Qualifiers: Urethral stricture type: other stricture (4) CAD (coronary artery disease) Code(s): I25.10 - ATHSCL HEART DISEASE OF [place] CORONARY ARTERY W/O ANG PCTRS (5) CHF (congestive heart failure) Code(s): I50.9 - HEART FAILURE, UNSPECIFIED (6) ESRD (end stage renal disease) on dialysis Code(s): N18.6 - END STAGE RENAL DISEASE; Z99.2 - DEPENDENCE ON RENAL DIALYSIS (7) Subtherapeutic international normalized ratio (INR) Code(s): R79.1 - ABNORMAL COAGULATION PROFILE (8) A-fib Code(s): I48.91 - UNSPECIFIED ATRIAL FIBRILLATION Qualifiers: Atrial fibrillation type: permanent Qualified Code(s): I48.2 - Chronic atrial fibrillation (9) COPD exacerbation Code(s): J44.1 - CHRONIC OBSTRUCTIVE PULMONARY DISEASE W (ACUTE) EXACERBATION (10) Anemia, chronic renal failure Code(s): N18.9 - CHRONIC KIDNEY DISEASE, UNSPECIFIED; D63.1 - ANEMIA IN CHRONIC KIDNEY DISEASE Assessment/Plan Pt is improving. Abtx to be switched to PO ID, Renal consults are appreciated DC planing. Case was d/w pt's nurse
[2018-10-02] MEDS ORDERED: WARFARIN NA 3 MG TABLET PO ONE (20:09)
[2018-10-02] MEDS ORDERED: WARFARIN NA PO ONE (20:30)
[2018-10-02] MEDS ORDERED: WARFARIN NA 2.5 MG TABLET (FP) ONE (20:52)
[2018-10-02] MEDS ORDERED: WARFARIN NA 2 MG TABLET (UD) ONE (20:52)
[2018-10-02 23:05] VITALS: TEMP 97.9
[2018-10-03] MEDS ORDERED: PIPERACILLIN/TAZOBACTAM 2.25 GM VIAL IVPB ONE ×2 (00:50→09:17)
[2018-10-03] MEDS ORDERED: DEXTROSE 5%-WATER - 50 ML IVPB ONE ×2 (00:50→09:17)
[2018-10-03] MEDS: PIPERACILLIN/TAZOB 2.25 GM 2.25 GM in DEXTROSE 5%-WATER - 50 ML IVPB SCH ×2 (01:00→09:22)
[2018-10-03] MEDS: METOPROLOL TARTRATE 50 MG TABLET (FP) PO SCH (09:21)
[2018-10-03] MEDS: TAMSULOSIN HCL 0.4 MG CAP PO SCH (09:21)
[2018-10-03] MEDS: FLUTICASONE PROP 0.05% 16 GM NASAL SPRAY NS SCH (09:22)
[2018-10-03] MEDS: [UNRECOGNIZED DRUG - OTHER] IH SCH (09:22)
[2018-10-03] MEDS: BACITRACIN 15 GM TUBE TOPICAL OINTMENT TP SCH (09:22)
[2018-10-03] MEDS: ALLOPURINOL 100 MG TABLET (FP) PO SCH (09:23)
--- NOTE | 2018-10-03 11:25 | DS ---
Physical Examination Vital Signs: Vital Signs Temperature 97.9 F 10/03/18 06:00 Pulse Rate 67 10/03/18 06:00 Respiratory Rate 20 10/02/18 23:03 Blood Pressure 111/54 L 10/03/18 06:00 O2 Sat by Pulse Oximetry (%) 99 10/02/18 21:00 Findings/Remarks: Pt w/o SOB, CP, palp, abd pain, N, V, diarrhea Constitutional: Yes: No Distress, Calm Cardiovascular: Yes: Regular Rate and Rhythm, S1, S2 Respiratory: Yes: Regular, CTA Bilaterally. No: Rales Gastrointestinal: Yes: Normal Bowel Sounds, Soft. No: Tenderness Edema: No Neurological: Yes: Alert, Oriented Labs: CBC, BMP 10/02/18 07:27 10/02/18 09:34 Discharge Summary Reason For Visit: SEPSIS Current Active Problems Anemia, chronic renal failure (Acute) S/P cystoscopy (Acute) S/P dilation of urethra (Acute) Sepsis (Acute) Subtherapeutic international normalized ratio (INR) (Acute) Procedures: Principal: CXR Hospital Course: Pt came to ER with fever and weakness, after cystoscopy in office (noticed to have UTI and given CIpro to take it at home). Pt was started on IV abtx, was seen by ID ( Dr Lewis), Renal (Dr. Esquivel); pt was noticed to have low blood pressure, skipped scheduled HD; pt's BP improved, restarted HD; pt improved clinically. Pt to be DC'ed home on PO abtx. Condition: Improved - Instructions Diet, Activity, Other Instructions: Resume diet. Resume tonoight Coumadin, regular schedule. Referrals: Enrike Rivero MD [Staff Physician] - (next week) Enrike Zee MD [Primary Care Provider] - Gt Marie MD [Staff Physician] - (within a week) - Home Medications Comprehensive Discharge Medication List: Ambulatory Orders See Patient discharge instructions
[2018-10-03 13:16] VITALS: BP 104/60; PULSE 78
== END 2018-10-03 13:00 | disposition home or self-care (01) | DRG 862 ==
LOC: JER 17:06 → JERBED 21:42 → J6S 09-30 18:15
PROVIDERS: ADMIT Specialist; ATTEND Specialist
PROC: 5A1D70Z Performance of Urinary Filtration, Intermittent, Less than 6 Hours Per Day (ICD-10-PCS; principal; 2018-10-02)
DX: T81.40XA Infection following a procedure, unspecified, initial encounter (principal); N18.6 End stage renal disease; A41.9 Sepsis, unspecified organism; N39.0 Urinary tract infection, site not specified; I12.0 Hypertensive chronic kidney disease with stage 5 chronic kidney disease or end stage renal disease; R50.9 Fever, unspecified; I25.10 Atherosclerotic heart disease of native coronary artery without angina pectoris; I48.91 Unspecified atrial fibrillation; J44.9 Chronic obstructive pulmonary disease, unspecified; E78.5 Hyperlipidemia, unspecified; I50.9 Heart failure, unspecified; I48.2 Chronic atrial fibrillation; D63.1 Anemia in chronic kidney disease; R79.1 Abnormal coagulation profile; E87.6 Hypokalemia; D69.6 Thrombocytopenia, unspecified; Y83.9 Surgical procedure, unspecified as the cause of abnormal reaction of the patient, or of later complication, without mention of misadventure at the time of the procedure; Z99.2 Dependence on renal dialysis
CPT/HCPCS: 36415; 71045-TC-FY; 80048; 80053; 81003; 82803; 83605; 84484; 85025; 85027; 85610; 85730; 86803; 87040; 87086; 87340; 93005; 93010; 99285-25; J0885

== ENCOUNTER 2018-10-20 00:10 | Emergency (ER) | payer OTHER, BC ==
[2018-10-20 00:53] VITALS: BP 102/59; PULSE 74; TEMP 97.5; BMI 27.0
[2018-10-20] MEDS ORDERED: ACETAMINOPHEN 500 MG TABLET (FP) PO ONE (01:46)
--- NOTE | 2018-10-20 01:49 | PDOC ---
History of Present Illness - General Chief Complaint: Urinary Catheter Problem Stated Complaint: R/O DEHYDRATION Time Seen by Provider: 10/20/18 01:23 History Source: Patient, Family Exam Limitations: No Limitations - History of Present Illness Initial Comments: 10/20/18 01:43 88M with PMH ESRD on MWF HD, Afib, here for a tear in his Camp urine bag. Went to HD today and got HD as per usual. Produces some urine, used to straight cath daily but is trialling permanent Camp with urologist per patient preference and cleanliness since he would leak some urine at all times onto clothing. Reports that at 4:30PM had no urine in bag. At 10:00PM still had no urine in bag, concerned initially for dehydration after HD vs. worsening kidney issue given ESRD. While in waiting room of ER, noticed had tear at bottom of bag , hard to notice because urine production is low and it was trickling out slowly. Otherwise reports a headache he has had after dialysis today. Denies other leaks to the rest of the tubing, hematuria, abd pain, N/V, C/D, chest pain, SOB , or flank pain. Past History - Past Medical History Allergies/Adverse Reactions: Allergies Allergy/AdvReac Type Severity Reaction Status Date / Time azithromycin AdvReac Intermediate HEADACHE Verified 10/20/18 00:53 Home Medications: Ambulatory Orders Albuterol Sulfate [Proair Respiclick] 90 mcg IH QID PRN 05/21/16 Allopurinol [Zyloprim -] 100 mg PO DAILY 05/21/16 Methenamine Hippurate [Hiprex [Nf] -] 1 gm PO BID 05/21/16 Metoprolol Tartrate [Lopressor] 50 mg PO BID 05/21/16 Tamsulosin HCl [Flomax] 0.4 mg PO DAILY 05/21/16 Triamcinolone Acetonide [Nasacort] 2 sprays NS DAILY 05/21/16 Fluticasone/Vilanterol [Breo Ellipta 200-25 Mcg INH] 1 each IH AM 11/04/17 Torsemide 50 mg PO DAILY 11/04/17 Lubiprostone [Amitiza] 24 mcg PO BID 09/30/18 Bacitracin - [Bacitracin Topical Ointment -] 1 applic TP DAILY tube 10/03/18 Cephalexin [Keflex] 500 mg PO Q12H 7 Days #14 capsule MDD 2 10/03/18 Warfarin Na [Coumadin -] 3 mg PO Q2D@1800 #0 tablet 10/03/18 Anemia: No Cancer: Yes (SKIN CA, PROSTATE) Cardiac Disorders: Yes (a.fib) COPD: Yes DVT: No Dialysis: Yes (M,W,F R ARM FISTULA) GI Disorders: Yes (DIVERTICULITIS) Disorders: Yes (NON FUNCTIONING LEFT KIDNEY) HTN: Yes Hypercholesterolemia: Yes (DIET CONTROLLED) - Surgical History Abdominal Surgery: (FISSURES, HERNIA) Appendectomy: Yes Cardiac Surgery: Yes (PACEMAKER) Cholecystectomy: Yes Orthopedic Surgery: Yes (TOTAL L KNEE REPLACEMENT-2001,TOTAL LEFT HIP REPLACEMENT-2003) - Immunization History Immunization Up to Date: Yes - Suicide/Smoking/Psychosocial Hx Smoking Status: Yes Smoking History: Never smoked Have you smoked in the past 12 months: No Number of Cigarettes Smoked Daily: 0 If you are a former smoker, when did you quit?: 40 YEARS AGO Cigars Per Day: 0 Information on smoking cessation initiated: No Hx Alcohol Use: No Drug/Substance Use Hx: No Substance Use Type: None Hx Substance Use Treatment: No Review of Systems - Review of Systems Constitutional: No: Symptoms Reported HEENTM: No: Symptoms Reported Respiratory: No: Symptoms reported Cardiac (ROS): No: Symptoms Reported ABD/GI: No: Symptoms Reported : Yes: Incontinence. No: Burning, Dysuria, Discharge, Frequency, Flank Pain, Hematuria Musculoskeletal: No: Symptoms Reported Integumentary: No: Symptoms Reported Neurological: Yes: Headache Endocrine: No: Symptoms Reported Hematologic/Lymphatic: No: Symptoms Reported All Other Systems: Reviewed and Negative *Physical Exam - Vital Signs Last Vital Signs Temp Pulse Resp BP Pulse Ox 97.5 F L 74 18 102/59 L 97 10/20/18 00:44 10/20/18 00:44 10/20/18 00:44 10/20/18 00:44 10/20/18 00:44 - Physical Exam General Appearance: Yes: Nourished, Appropriately Dressed. No: Apparent Distress HEENT: positive: EOMI, Normal Voice, Symmetrical. negative: Scleral Icterus (R) , Scleral Icterus (L) Neck: positive: Trachea midline, Supple. negative: Tender, Lymphadenopathy (R) , Lymphadenopathy (L) Respiratory/Chest: positive: Lungs Clear, Normal Breath Sounds. negative: Respiratory Distress, Crackles, Rales, Rhonchi Cardiovascular: positive: Irregularly Irregular. negative: Edema, Murmur Gastrointestinal/Abdominal: positive: Normal Bowel Sounds, Flat, Soft, Other. negative: Tender Male Genitalia: positive: other (Has Camp catheter in place with bag attached to leg, bottom of bag has tear at spigot. Urine is 1-2cc in bag, clear yellow.) Musculoskeletal: positive: Normal Inspection Extremity: positive: Normal Capillary Refill Integumentary: positive: Normal Color, Dry, Warm Neurologic: positive: Fully Oriented, Alert, Normal Mood/Affect, Normal Response Medical Decision Making - Medical Decision Making 10/20/18 01:43 88M with PMH ESRD on MWF HD, Afib, here for a tear in his Camp urine bag. Patient reports headache but otherwise asymptomatic for infection, denies abd pain, urine is clear yellow, no SOB or chest pain. Will replace Camp bag and give Tylenol. Otherwise clear to return home. *DC/Admit/Observation/Transfer Diagnosis at time of Disposition: Urinary catheter dysfunction Qualifiers: Encounter type: initial encounter Qualified Code(s): T83.018A - Breakdown ( mechanical) of other urinary catheter, initial encounter - Discharge Dispostion Disposition: HOME Condition at time of disposition: Improved Decision to Admit order: No - Referrals Referrals: Enrike Zee MD [Primary Care Provider] - - Patient Instructions Printed Discharge Instructions: How to Care for Your Camp Catheter -- Male Additional Instructions: Today you were evaluated for an issue with your Camp catheter. There was a tear at the bottom, so we replaced it. We also gave you a Tylenol for your headache. Please try to take good care of your Camp catheter and be mindful of tears in the future. If a tear happens again, feel free to use duct tape to fix the tear and see your primary doctor or urologist to exchange the bag. If you have any issues with the tubing itself, please see your primary doctor or urologist. Please see your primary doctor in the next 3 days for further care. If you experience worse headache, fever, chills, nausea, vomiting, abdominal pain, unsolvable catheter problems, pain or burning of urine, blood in urine, or any new or concerning symptoms, please return to your closest emergency room. - Post Discharge Activity
[2018-10-20] MEDS ORDERED: ACETAMINOPHEN 325 MG TABLET (FP) ONE (01:55)
--- NOTE | 2018-10-20 01:55 | PDOC ---
Documentation entered by Anju Jones SCRIBE, acting as scribe for Camille Toro MD. Camille Toro MD: This documentation has been prepared by the Karen burrows Brenda, SCRIBE, under my direction and personally reviewed by me in its entirety. I confirm that the documentation accurately reflects all work, treatment, procedures, and medical decision making performed by me. Attending Attestation - Resident Resident Name: Yves Lord - ED Attending Attestation I have performed the following: I have examined & evaluated the patient, The case was reviewed & discussed with the resident, I agree w/resident's findings & plan, Exceptions are as noted - HPI HPI: 10/20/18 01:39 The patient is an 88 year old male, with a significant PMH of ESRD (on HD MWF), urethral strictures (self-catheterization ever 3-4 days), CAD, AFib (s/p pacemaker, on Coumadin), COPD, diverticulosis, prostate CA (s/p radiation seed implantation), kidney stones with subsequent damage to left kidney, and hyperlipidemia, who presents to the emergency department with a tear on his urinary lawrence bag, from which there is leaking urine. The patient denies chest pain, shortness of breath, headache and dizziness. Denies fever, chills, nausea, vomiting, diarrhea and constipation. Denies dysuria, and hematuria. Allergies: Azithromycin Social history: Denies tobacco use, alcohol use or illicit drug use. PCP: Dr. Ángel [facility] Administrator: Dr. Edith Miller - Physicial Exam PE: 10/20/18 03:39 NAD, well appearing, alert and awake no respiratory distress abdomen soft nontender. lawrence in place. lawrence bag cracked at bottom, empty. no edema, no rash, normal skin color. - Medical Decision Making 10/20/18 03:43 Vital signs reviewed, wnl. Vital Signs Temp Pulse Resp BP Pulse Ox 97.5 F L 74 18 102/59 L 97 10/20/18 00:44 10/20/18 00:44 10/20/18 00:44 10/20/18 00:44 10/20/18 00:44 notes reviewed lawrence bag changed out. lawrence cath in place abdomen benign, no systemic findings no complaints only mild headache, s/p HD today, due on Friday as scheduled given tylenol here no infectious sx. no indication for testing, with chronic lawrence in place appears well hydrated, comfortable. f/u outpatient, PMD and urology, impression and plan made aware. return precautions 10/20/18 03:44
== END 2018-10-20 03:48 | disposition home or self-care (01) ==
LOC: JER 00:10
DX: T83.098A Other mechanical complication of other urinary catheter, initial encounter (principal); I12.0 Hypertensive chronic kidney disease with stage 5 chronic kidney disease or end stage renal disease; N18.6 End stage renal disease; N17.8 Other acute kidney failure; Z99.2 Dependence on renal dialysis; I48.91 Unspecified atrial fibrillation; E78.00 Pure hypercholesterolemia, unspecified; J44.9 Chronic obstructive pulmonary disease, unspecified; Z85.46 Personal history of malignant neoplasm of prostate; Z85.828 Personal history of other malignant neoplasm of skin; Z79.01 Long term (current) use of anticoagulants; Z95.0 Presence of cardiac pacemaker; Z96.652 Presence of left artificial knee joint; Z96.642 Presence of left artificial hip joint
CPT/HCPCS: 99281-25

== ENCOUNTER 2018-12-08 15:26 | Inpatient (IN) | payer OTHER, BC ==
[2018-12-08 09:02] LABS: BASO % 0.8 % (0-2.0); EOS % 1.7 % (0-4.5); HEMATOCRIT 39.6 % (35.4-49); HEMOGLOBIN 13.6 GM/dL (11.7-16.9); LYMPH % 24.1 % (8-40); MCH 31.2 pg (25.7-33.7); MCHC 34.4 g/dl (32.0-35.9); MEAN CELL VOLUME 90.8 fl (80-96); MEAN PLT VOLUME 9.7 fl (7.5-11.1); MONO % 16.8 % (3.8-10.2); NEUT % 56.6 % (42.8-82.8); PLATELET COUNT 118 K/MM3 (134-434); RBC 4.36 M/mm3 (4.00-5.60); RDW 14.4 % (11.9-15.9); WHITE BLOOD COUNT 6.8 K/mm3 (4.0-10.0)
[2018-12-08 09:19] LABS: INR 1.15 (0.83-1.09); PROTHROMBIN TIME (PATIENT) 13.6 SEC (9.7-13.0)
[2018-12-08 12:18] LABS: ANISOCYTOSIS 0; MACROCYTOSIS 0; PLATELET ESTIMATE DECREASED
--- NOTE | 2018-12-08 13:20 | RAPID ---
<Neena Demarco - Last Filed: 12/08/18 18:38> Physical Examination Vital Signs: Vital Signs Temperature 97.4 F L 12/08/18 12:40 Pulse Rate 80 12/08/18 12:15 Respiratory Rate 20 12/08/18 12:15 Blood Pressure 106/59 L 12/08/18 12:15 O2 Sat by Pulse Oximetry (%) 98 12/08/18 12:15 Labs: CBC, BMP 12/08/18 08:34 Rapid Response - Rapid Response Assessment: A rapid response was called to the [facility] around 12:55pm to evaluate a patient who had recently returned from a suprapubic catheter placement. The rapid team responded immediately, upon our arrival the patient was complaining of abdominal pain and visibly shaking. On physical exam the patient's vitals were stable with a temperature of 97.7 , BP 111/79, HR 78. The patient was breathing comfortably on 3LNC. CV exam revealed rrr and EKG showed wide QRS with ventricular pacing, unchanged from previous. The patient had normal BS, and diffuse abdominal tenderness worse in the bilateral lower quandrants and worse on deep palpation. There was no rebound tenderness or peritoneal signs. The patient's catheter bag was draining bloodly fluid which is normal post- procedure. The patient was alert and oriented and able to follow commends without difficulty. Dr. Brown was contacted and informed of the patient's current condition. A CMP, CBC, LA, Troponin, and non-contrast CT of the abdomen / pelvis/ and chest was ordered. The patient was stablized and then admitted for observation. After 1 hour the patient's shaking had subsided and he stated he felt better. The patient has dialysis on MWF. <Low Guthrie - Last Filed: 12/12/18 12:32> Physical Examination Vital Signs: Vital Signs Temperature 98.2 F 12/11/18 22:00 Pulse Rate 79 12/12/18 09:30 Respiratory Rate 20 12/12/18 09:30 Blood Pressure 100/52 L 12/12/18 09:30 O2 Sat by Pulse Oximetry (%) 99 12/11/18 20:06 Findings/Remarks: SEEN AND EXAMINED WAS PRESENT INDEPENDENTLY VERIFIED PE AND HX AGREE WITH PLAN; DISPO TO ER FOR IMAGING AND POTENTIAL ADMISSION DISCUSSED WITH ER AND RESIDENTS. Labs: CBC, BMP 12/12/18 05:50 12/11/18 06:20
[2018-12-08 13:57] LABS: BASO % 0.1 % (0-2.0); EOS % 0.4 % (0-4.5); HEMATOCRIT 35.6 % (35.4-49); HEMOGLOBIN 12.1 GM/dL (11.7-16.9); LYMPH % 2.8 % (8-40); MCH 31.1 pg (25.7-33.7); MEAN CELL VOLUME 91.5 fl (80-96); MEAN PLT VOLUME 9.2 fl (7.5-11.1); MONO % 0.7 % (3.8-10.2); PLATELET COUNT 81 K/MM3 (134-434); RDW 14.3 % (11.9-15.9); WHITE BLOOD COUNT 5.9 K/mm3 (4.0-10.0)
[2018-12-08 14:40] LABS: ALBUMIN 2.9 g/dl (3.4-5.0); ALK PHOS 74 U/L (45-117); ANION GAP 11 MMOL/L (8-16); BILIRUBIN,TOTAL 0.6 mg/dL (0.2-1); BLOOD UREA NITROGEN 33.9 mg/dL (7-18); CHLORIDE 108 mmol/L (98-107); CO2 23 mmol/L (21-32); GLUCOSE,RANDOM 81 mg/dL (74-106); POTASSIUM 3.1 mmol/L (3.5-5.1); SGOT/AST 5 U/L (15-37); SGPT/ALT 11 U/L (13-61); SODIUM 143 mmol/L (136-145); TOT PROT 5.1 g/dl (6.4-8.2)
[2018-12-08 14:52] LABS: CALCIUM 6.8 mg/dL (8.5-10.1)
[2018-12-08 14:54] LABS: ANISOCYTOSIS 0; MACROCYTOSIS 0; PLATELET ESTIMATE DECREASED
--- NOTE | 2018-12-08 15:20 | PDOC ---
History of Present Illness - History of Present Illness Initial Comments: 12/08/18 15:20 Mr. Brown is an 88 yo male w/ pmh of ESRD (M/W/F HD), CAD, Afib (s/p pacemaker, on coumadin), COPD, diverticulosis, prostate CA (s/p radiation), kidney stones w/ damage to L kidney, urethral strictures who was getting supra- pubic catheter placed today and was noted to become hypotensive with abdominal pain and chills. Rapid response was called and patient was evaluated with chest/ abdomen/pelvis CT and brought to ER. The patient denies chest pain, shortness of breath, headache and dizziness. Denies nausea, vomit, diarrhea and constipation. Denies dysuria, frequency, urgency and hematuria. Allergies: Azithromycin PCP: Dr. Rivero Pneumatic Hoist Operator: Dr. Edith Miller Past History - Past Medical History Allergies/Adverse Reactions: Allergies Allergy/AdvReac Type Severity Reaction Status Date / Time azithromycin AdvReac Intermediate HEADACHE Verified 12/07/18 16:49 Home Medications: Ambulatory Orders Albuterol Sulfate [Proair Respiclick] 90 mcg IH QID PRN 05/21/16 Allopurinol [Zyloprim -] 100 mg PO DAILY 05/21/16 Triamcinolone Acetonide [Nasacort] 2 sprays NS DAILY 05/21/16 Fluticasone/Vilanterol [Breo Ellipta 200-25 Mcg INH] 1 each IH AM 11/04/17 Torsemide 50 mg PO DAILY 11/04/17 Lubiprostone [Amitiza] 24 mcg PO DAILY 09/30/18 Folic Acid/Vit B Complex and C [Joycelyn-Dustin Tablet] 0.8 mg PO DAILY 12/07/18 Ubidecarenone [Co Q-10] 100 mg PO DAILY 12/07/18 Warfarin Na [Coumadin -] 3 mg PO ASDIR 12/07/18 Warfarin Sodium [Coumadin] 4.5 mg PO ASDIR 12/07/18 Metoprolol Succinate [Toprol XL -] 25 mg PO DAILY #90 tab.sr.24h 12/13/18 levoFLOXacin [Levaquin -] 250 mg PO Q48H #7 tablet 12/13/18 Anemia: No Cancer: Yes (SKIN CA, PROSTATE) Cardiac Disorders: Yes (a.fib) CVA: No COPD: Yes CHF: No DVT: No Dementia: No Diabetes: No Dialysis: Yes (M,W,F R ARM FISTULA) GI Disorders: Yes (DIVERTICULITIS) Disorders: Yes (NON FUNCTIONING LEFT KIDNEY) HTN: Yes Hypercholesterolemia: Yes (DIET CONTROLLED) Liver Disease: No Seizures: No Thyroid Disease: No - Surgical History Abdominal Surgery: (FISSURES, HERNIA) Appendectomy: Yes Cardiac Surgery: Yes (PACEMAKER) Cholecystectomy: Yes Neurologic Surgery: No Orthopedic Surgery: Yes (TOTAL L KNEE REPLACEMENT-2001,TOTAL LEFT HIP REPLACEMENT-2003) - Immunization History Immunization Up to Date: Yes - Psycho Social/Smoking Cessation Hx Smoking Status: Yes Smoking History: Never smoked Have you smoked in the past 12 months: No Number of Cigarettes Smoked Daily: 0 If you are a former smoker, when did you quit?: 40 YEARS AGO Cigars Per Day: 0 Hx Alcohol Use: No Drug/Substance Use Hx: No Substance Use Type: None Hx Substance Use Treatment: No Review of Systems - Review of Systems Comments:: 12/08/18 15:28 GENERAL/CONSTITUTIONAL: +Post-procedure symptoms as described. No weakness. HEAD, EYES, EARS, NOSE AND THROAT: No change in vision. No ear pain or discharge. No sore throat. CARDIOVASCULAR: No chest pain or shortness of breath RESPIRATORY: No cough, wheezing, or hemoptysis. GASTROINTESTINAL: No nausea, vomiting, diarrhea or constipation. GENITOURINARY: No dysuria, frequency, or change in urination. MUSCULOSKELETAL: No joint or muscle swelling or pain. No neck or back pain. SKIN: No rash NEUROLOGIC: No headache, vertigo, loss of consciousness, or change in strength/ sensation. ENDOCRINE: No increased thirst. No abnormal weight change HEMATOLOGIC/LYMPHATIC: No anemia, easy bleeding, or history of blood clots. ALLERGIC/IMMUNOLOGIC: No hives or skin allergy. *Physical Exam - Vital Signs Last Vital Signs Temp Pulse Resp BP Pulse Ox 97.8 F 78 24 H 111/79 98 12/08/18 13:00 12/08/18 13:00 12/08/18 13:00 12/08/18 13:00 12/08/18 12:15 - Physical Exam Comments: 12/08/18 15:28 GENERAL: Awake, alert, and fully oriented, in no acute distress HEAD: No signs of trauma, normocephalic, atraumatic EYES: PERRLA, EOMI, sclera anicteric, conjunctiva clear ENT: Auricles normal inspection, hearing grossly normal, nares patent, oropharynx clear without exudates. Moist mucosa NECK: Normal ROM, supple, no lymphadenopathy, JVD, or masses LUNGS: No distress, speaks full sentences, clear to auscultation bilaterally HEART: Regular rate and rhythm, normal S1 and S2, no murmurs, rubs or gallops, peripheral pulses normal and equal bilaterally. ABDOMEN: +Diffuse abdominal TTP. Soft, normoactive bowel sounds. No guarding, no rebound. No masses EXTREMITIES: Normal inspection, Normal range of motion, no edema. No clubbing or cyanosis. NEUROLOGICAL: Cranial nerves II through XII grossly intact. Normal speech, normal gait, no focal sensorimotor deficits SKIN: Warm, Dry, normal turgor, no rashes or lesions noted. ED Treatment Course - LABORATORY CBC & Chemistry Diagram: 12/14/18 06:35 12/14/18 11:20 - ADDITIONAL ORDERS Additional order review: Laboratory Results 12/08/18 12/08/18 12/08/18 13:22 13:22 08:34 PT with INR 13.60 H INR 1.15 H Sodium 143 Potassium 3.1 L Chloride 108 H Carbon Dioxide 23 Anion Gap 11 BUN 33.9 H Creatinine 3.0 H Est GFR (CKD-EPI)AfAm 20.69 Est GFR (CKD-EPI)NonAf 17.85 Random Glucose 81 Lactic Acid 2.1 H Calcium 6.8 L* Total Bilirubin 0.6 AST 5 L ALT 11 L Alkaline Phosphatase 74 Troponin I < 0.02 Total Protein 5.1 L Albumin 2.9 L 12/08/18 12/08/18 13:22 08:34 RBC 3.90 L 4.36 MCV 91.5 90.8 MCHC 34.0 34.4 RDW 14.3 14.4 MPV 9.2 9.7 Neutrophils % 96.0 H D 56.6 D Lymphocytes % 2.8 L D 24.1 D Monocytes % 0.7 L D 16.8 H Eosinophils % 0.4 1.7 D Basophils % 0.1 0.8 Medical Decision Making - Medical Decision Making 12/08/18 15:29 Patient is an 88 yo male w/ pmh as described who presents for evaluation of symptoms concerning for infection vs. procedure complication vs. other acute process. Patient evaluated w/ CT chest/A/P and will be admitted for overnight observation of continued hypotension. Patient has no complaints at this time. 12/08/18 15:37 Air noted intra-abdominally by radiology. Discussed with covering provider who recommend treating like perforation until proven otherwise and admit for observation. Patient admitted to hospitalist for further overnight care. 12/08/18 16:07 Discussed with PCP to update status. Discussed with urology who recommended lawrence placement w/ 16. Lawrence will be placed. 12/08/18 16:30 Discussed patient with ID who recommended vancomycin. Order placed. Difficulty encountered placing lawrence precluded placement. 12/08/18 18:[address] ordered to evaluate for free air progression. Discharge - Discharge Information Problems reviewed: Yes Clinical Impression/Diagnosis: Hypotension after procedure Condition: Improved Disposition: VNS/HOME HEALTH CARE - Admission Yes - Follow up/Referral - Patient Discharge Instructions - Post Discharge Activity
--- NOTE | 2018-12-08 15:25 | PDOC ---
Attending Attestation - Resident Resident Name: Sreedhar Jiang - ED Attending Attestation I have performed the following: I have examined & evaluated the patient, The case was reviewed & discussed with the resident, I agree w/resident's findings & plan - HPI HPI: 12/08/18 15:19 88y/o M h/o esrd on m/w/f dialysis s/p HD yesterday, prostate ca with h/o retention requiring indwelling lawrence catheter c/b recurring UTI, today presented for outpatient suprapubic catheter placement. During procedure, retrograde reflux to kidneys, catheter placed. At ASU, noted to have sudden shaking chills and abdominal pain, rapid response called, sepsis protocol initiated, brought to ED. Received levaquin prior to procedure. - Physicial Exam PE: 12/08/18 15:21 BP 80 systolic, HR wnl, o2 sat normal, afebrile 97.8 alert, conversant, nad irregular to auscultation, lungs ctab abd soft, slightly distended. tender suprapubic region with guarding. + b/l mid abdominal ttp without rebound. no cvat. SPC in plcae. - Critical Care Time Total Critical Care Time: 100 Critical Care Statement: The care of this patient involved high complexity decision making to prevent further life threatening deterioration of the patient 's condition and/or to evaluate & treat vital organ system(s) failure or risk of failure. - Medical Decision Making 12/08/18 15:23 88-year-old male presents from ASU status post suprapubic catheter placement following rapid response, sustained shaking chills and now hypotensive receiving IV fluid resuscitation. Concern for feeding and bacteremia/sepsis, question vasovagal episode, rule out cardiac event. Sepsis protocol initiated by rapid response team CT chest/abdomen/pelvis ordered by rapid response team Brought to ED already admitted, my evaluation as noted IV fluid resuscitation, urinalysis and urine culture ordered. Rapid response team discussed with patient's PCP, Dr. Rivero, who agrees to admit if necessary. Given persistent hypotension and concern for bacteremia/sepsis, will admit, monitor for possible ICU, will need dialysis tomorrow as scheduled. 12/08/18 15:27 on review of RR labs, wbc wnl but left shift with new 3% bands, hypo-Ca, baseline Cr. Trop negative EKG pending CT chest/abd/pelvis performed: chest wnl other than COPD, abd/pel reveals air in b/l renal collecting systems as well as inguinal canal. ? normal post- procedural - will discuss with performing physician. 12/08/18 15:37 d/w dr. bender, unclear etiology of inguinal air. recommends treatment with abx, monitoring in hospital. will d/w Dr. Rivero, likely and gen surg consults. Heart Score/ECG Review #1 ECG reviewed & interpreted by me at: 13:06 12/08/18 16:40 afib with paced beats, no acute ischemia
[~2018-12-08 15:26] MED LIST: ACETAMINOPHEN 1000 MG/100 ML VIAL (NON FORMULARY) IVPB ONE; ACETAMINOPHEN INJECTION 100 ML IVPB ONE
[2018-12-08] MEDS ORDERED: PIPERACILLIN/TAZOB 4.5 GM 4.5 GM in DEXTROSE 5%-WATER 100 ML IVPB ONE (15:32)
[2018-12-08] MEDS ORDERED: PIPERACILLIN/TAZOB 4.5 GM 4.5 GM/100 ML BAG IVPB ONE (15:37)
--- NOTE | 2018-12-08 15:45 | EKG ---
Test Reason : Blood Pressure : / mmHG Vent. Rate : 078 BPM Atrial Rate : 441 BPM P-R Int : 000 ms QRS Dur : 068 ms QT Int : 350 ms P-R-T Axes : 000 -71 -02 degrees QTc Int : 399 ms ATRIAL FIBRILLATION WITH FREQUENT ventricular-paced complexes LEFT AXIS DEVIATION INFERIOR INFARCT , AGE UNDETERMINED ABNORMAL ECG WHEN COMPARED WITH ECG OF 29-SEP-2018 21:02, NO SIGNIFICANT CHANGE WAS FOUND Confirmed by Gerber Rankin ([id number]) on 12/08/2018 3:45:42 PM Referred By: Confirmed By:Gerber Rankin
[2018-12-08] MEDS ORDERED: VANCOMYCIN 1 GM in D5W (PRE-DOCKED) 1,000 MG/250 ML IVPB ONE (16:28)
[2018-12-08] MEDS ORDERED: ALBUTEROL SO4 8 GM HFA INHALER IH PRN (16:39)
[2018-12-08] MEDS ORDERED: VANCOMYCIN 1 GRAM (PRE-DOCKED) 1,000 MG/250 ML BAG IVPB ONE (17:10)
--- NOTE | 2018-12-08 17:31 | PN ---
Progress Note (short form) - Note Progress Note: Id consult dictated patient seen in ED imp/reccd suspect sepsis secondary to procedure-SPT catheter placement prior history of pseudomonas uti (most recent) history of urethral stricture esrd/hd plan vancomycin one dose zosyn adjusted for CKD f/u cultures f/u with urology d/w patient and d/w dr thorpe Problem List - Problems (1) Sepsis Code(s): A41.9 - SEPSIS, UNSPECIFIED ORGANISM (2) Suprapubic catheter Code(s): Z93.59 - OTHER CYSTOSTOMY STATUS (3) ESRD (end stage renal disease) on dialysis Code(s): N18.6 - END STAGE RENAL DISEASE; Z99.2 - DEPENDENCE ON RENAL DIALYSIS
[2018-12-08 18:48] LABS: URINE APPEARANCE TURBID; URINE COLOR RED
[2018-12-08 18:57] LABS: PH,URINE 6.5 (5.0-8.0); URINE BILIRUBIN MODERATE (NEGATIVE); URINE GLUCOSE (UA) NEGATIVE (NEGATIVE); URINE KETONE NEGATIVE (NEGATIVE); URINE PROTEIN 300 (NEGATIVE); URINE UROBILINOGEN 0.2 mg/dL (0.2-1.0)
[2018-12-08 18:58] LABS: URINE LEUK ESTERASE 4+ (NEGATIVE); URINE NITRITE Positive (NEGATIVE)
[2018-12-08 19:02] LABS: URINE WBC 303 /hpf (0-5)
[2018-12-08 19:03] LABS: URINE BACTERIA 4.7 /hpf (NEGATIVE)
--- NOTE | 2018-12-08 20:24 | CONS ---
INFECTIOUS DISEASE CONSULTATION DATE OF CONSULTATION: 12/08/2018 REQUESTING PHYSICIAN: Jacob Andres MD This is an 88-year-old man I know well. He has a history of end-stage renal disease. He has a known chronic urethral stricture and self-catheterizes himself at home. He has had several episodes of sepsis, most recently with pseudomonas UTIs. In the distant past, he has had klebsiella bacteremia and UTI as well as enterococcal bacteremia and UTI. He came today for outpatient procedure to have his suprapubic placed in interventional radiology. Apparently, he has been continuing to leak, and this was supposed to be the solution. He had tube placed, and 1/2 hour later, he started having shaking chills. Rapid response was called, and he was brought to the emergency room. In the ER, he was noted to be hypotensive. He noted some abdominal pain at the suprapubic tube site. He has now had imaging of his abdomen and pelvis, and per the urologist, is having a Camp catheter placed along with his suprapubic tube. He is awake and alert. He denies chest pain or vomiting. He does note some nausea. He has no diarrhea. PAST MEDICAL HISTORY: Notable for prostate cancer in 2006. He had prostate seed implant. He has a history of coronary artery disease, atrial fibrillation, COPD. He has a urethral stricture; history of kidney stones; hyperlipidemia; end-stage renal disease, dialysis via fistula for 1 year; multiple episodes of UTI and bacteremia, enterococcus, klebsiella, and pseudomonas. The pseudomonas has only been urinary. He also has a history of diverticulitis and skin cancer. SURGICAL HISTORY: Notable for hernia repair, left total knee replacement, left total hip replacement, AV fistula in the right arm, and permanent pacemaker x2. ALLERGIES: He is allergic to AZITHROMYCIN. SOCIAL HISTORY: He is a former smoker and lives at home with his . REVIEW OF SYSTEMS: As per HPI. MEDICATIONS AT HOME: Include fluticasone, Nasacort, Lopressor, Zyloprim, Coumadin, ProAir, torsemide, tamsulosin, and warfarin. PHYSICAL EXAMINATION: General: He is awake and alert. He is an elderly man in no acute distress. Vital Signs: Temperature is 97.8. He has had no fever. Blood pressure is 85/49. His respiratory rate is 24. His heart rate is 90. HEENT: He is normocephalic. His eyes are anicteric. Neck: Supple. Lungs: Diminished breath sounds at the bases. Heart: Regular rate and rhythm. Abdomen: Soft. He has some diffuse discomfort in the suprapubic area. The suprapubic tube is draining blood. Extremities: Without edema. AV fistula is without erythema or fluctuance. LABORATORY DATA: White count is 5.9, hemoglobin 12.1, platelets are 81,000. INR is 1.15. BUN is 33 and creatinine 3. Lactic acid is 2.1. Urinalysis has 4+ blood, 4+ leukocyte esterase with 303 white cells. Cultures are pending. He had a chest and abdominal CT done today, that showed COPD. No evidence of any active pulmonary disease. He had a CAT scan of his abdomen and pelvis done as well, that showed suprapubic catheter in place with air in the soft tissues and bilateral renal collecting system. In summary, this is an 88-year-old man admitted with sepsis, status post secondary to urologic procedure, suprapubic catheter placement. He received a dose of Levaquin prior to the placement and has now received Zosyn at the emergency room. Would add 1 dose vancomycin. He has a prior history of pseudomonas urinary tract infection most recently; a remote history of klebsiella and enterococcus; history of urethral stricture; end-stage renal disease, dialysis; and pacemaker. Would follow up with Urology, adjust his Zosyn for his chronic kidney disease, and follow up his cultures. Would check a vancomycin level in the morning. The case was discussed with patient and his as well as Dr. Rivero and the emergency room doctors. ARABELLA DORAN M.D. [id number]
[2018-12-08] MEDS ORDERED: PIPERACILLIN/TAZOB 2.25 GM 2.25 GM/50 ML BAG IVPB ONE (21:45)
[2018-12-08] MEDS: PIPERACILLIN/TAZOB 2.25 GM 2.25 GM in DEXTROSE 5%-WATER - 50 ML IVPB SCH (22:00)
--- NOTE | 2018-12-08 22:57 | HP ---
Admitting History and Physical - Primary Care Physician PCP: Enrike Rivero - Admission Chief Complaint: chills, weakness History of Present Illness: Pt with significant Hx/o ESRD on HD, self bladder catheterization for urinary retention secondary to uretral strictures, had suprapubic cath placed today. While ASU pt felt weak, started to shake and ahd abdominal pain; rapid response was called, stabilized pt; pt was brought to ER, found to be hypotensive, received IVF bolus X 2, IV abtx; pt continued to feel weaker and was admitted. History Source: Patient, Significant Other (his ex- at bedside) - Past Medical History Cardiovascular: Yes: AFIB (on AC), CAD, HTN, Hyperlipdemia, Other (SSS with PPM) Pulmonary: Yes: COPD Renal/: Yes: BPH, Cancer (prostate), Hemodialysis, Renal Calculi, Other ( urinary incontinence) Heme/Onc: Yes: Cancer (prostate) - Past Surgical History Past Surgical History: Yes: Appendectomy, Hernia Repair, Joint Replacement - Smoking History Smoking history: Never smoked Have you smoked in the past 12 months: No Aproximately how many cigarettes per day: 0 If you are a former smoker, when did you quit?: 40 YEARS AGO - Alcohol/Substance Use Hx Alcohol Use: No History of Substance Use: reports: None - Social History ADL: Independent History of Recent Travel: No Home Medications - Allergies Allergies/Adverse Reactions: Allergies Allergy/AdvReac Type Severity Reaction Status Date / Time azithromycin AdvReac Intermediate HEADACHE Verified 12/07/18 16:49 - Home Medications Home Medications: Ambulatory Orders Albuterol Sulfate [Proair Respiclick] 90 mcg IH QID PRN 05/21/16 Allopurinol [Zyloprim -] 100 mg PO DAILY 05/21/16 Metoprolol Tartrate [Lopressor] 50 mg PO ASDIR 05/21/16 Tamsulosin HCl [Flomax] 0.4 mg PO DAILY 05/21/16 Triamcinolone Acetonide [Nasacort] 2 sprays NS DAILY 05/21/16 Fluticasone/Vilanterol [Breo Ellipta 200-25 Mcg INH] 1 each IH AM 11/04/17 Torsemide 50 mg PO DAILY 11/04/17 Lubiprostone [Amitiza] 24 mcg PO DAILY 09/30/18 Folic Acid/Vit B Complex and C [Joycelyn-Dustin Tablet] 0.8 mg PO DAILY 12/07/18 Ubidecarenone [Co Q-10] 100 mg PO DAILY 12/07/18 Warfarin Na [Coumadin -] 3 mg PO ASDIR 12/07/18 Warfarin Sodium [Coumadin] 4.5 mg PO ASDIR 12/07/18 Review of Systems - Review of Systems Constitutional: reports: Chills, Diaphoresis, Loss of Appetite, Weakness Eyes: denies: Blind Spots, Blurred Vision HENT: denies: Ear Discharge, Epistaxis, Nasal Congestion, Throat Pain Neck: denies: Pain on Movement, Stiffness Cardiovascular: reports: Palpitations. denies: Chest Pain, Edema Respiratory: denies: Cough, SOB, Wheezing Gastrointestinal: reports: Abdominal Pain (in lower abd, radiating to the back) . denies: Diarrhea, Vomiting Genitourinary: denies: Burning, Discharge Musculoskeletal: reports: Back Pain. denies: Muscle Pain Integumentary: denies: Bruising, Erythema Neurological: reports: Unsteady Gait, Weakness. denies: Change in LOC, Change in Speech, Confusion Endocrine: reports: Intolerance to Cold, Intolerance to Heat Hematology/Lymphatic: reports: Excessive Bleeding. denies: Easily Bruised Psychiatric: denies: Anxiety, Depression Physical Examination Vital Signs: Vital Signs Temperature 97.8 F 12/08/18 13:00 Pulse Rate 90 12/08/18 19:26 Respiratory Rate 24 H 12/08/18 19:26 Blood Pressure 85/49 L 12/08/18 19:26 O2 Sat by Pulse Oximetry (%) 95 12/08/18 19:26 Constitutional: Yes: No Distress, Calm Eyes: Yes: Conjunctiva Clear, EOM Intact HENT: Yes: Normocephalic. No: Epistaxis, Rhinnorhea Neck: Yes: Trachea Midline. No: Lymphadenopathy Cardiovascular: Yes: Regular Rate and Rhythm, S1, S2 Respiratory: Yes: Regular. No: Rhonchi Gastrointestinal: Yes: Normal Bowel Sounds, Soft, Tenderness, Other (guarding in lower quadrans). No: Palpable Mass, Tenderness, Rebound ...Rectal Exam: Yes: Deferred Renal/: No: CVA Tenderness - Left, CVA Tenderness - Right Extremities: Yes: Cold (hands and feet). No: Cyanosis, Erythema Edema: No Neurological: Yes: Alert, Oriented, Other (and sensory examination is symmetric in UE/ LE/ face) Psychiatric: Yes: Oriented. No: Agitated Labs: CBC, BMP 12/08/18 13:22 12/08/18 13:22 Imaging - Results Cat Scan: Report Reviewed Problem List - Problems (1) Hypotension Code(s): I95.9 - HYPOTENSION, UNSPECIFIED Qualifiers: Hypotension type: unspecified hypotension type Qualified Code(s): I95.9 - Hypotension, unspecified (2) Sepsis Code(s): A41.9 - SEPSIS, UNSPECIFIED ORGANISM (3) Suprapubic catheter Code(s): Z93.59 - OTHER CYSTOSTOMY STATUS (4) Abdominal pain Code(s): R10.9 - UNSPECIFIED ABDOMINAL PAIN (5) Lactic acidosis Code(s): E87.2 - ACIDOSIS (6) Abnormal abdominal CT scan Code(s): R93.5 - ABN FINDINGS ON DX IMAGING OF ABD REGIONS, INC RETROPERITON (7) ESRD (end stage renal disease) on dialysis Code(s): N18.6 - END STAGE RENAL DISEASE; Z99.2 - DEPENDENCE ON RENAL DIALYSIS (8) A-fib Code(s): I48.91 - UNSPECIFIED ATRIAL FIBRILLATION Qualifiers: Atrial fibrillation type: permanent (9) COPD exacerbation Code(s): J44.1 - CHRONIC OBSTRUCTIVE PULMONARY DISEASE W (ACUTE) EXACERBATION (10) CAD (coronary artery disease) Code(s): I25.10 - ATHSCL HEART DISEASE OF [place] CORONARY ARTERY W/O ANG PCTRS Assessment/Plan Admit pt to medicine IV abtx. To f/u CX consult IR consult Renal consult ID consult AM labs
[2018-12-09] MEDS ORDERED: PIPERACILLIN/TAZOBACTAM 2.25 GM VIAL IVPB ONE ×4 (03:11→20:28)
[2018-12-09] MEDS ORDERED: DEXTROSE 5%-WATER - 50 ML IVPB ONE ×3 (03:12→20:29)
[2018-12-09] MEDS: PIPERACILLIN/TAZOB 2.25 GM 2.25 GM in DEXTROSE 5%-WATER - 50 ML IVPB SCH ×4 (03:41→20:44)
[2018-12-09 04:28] VITALS: BMI 15.7
[2018-12-09 07:02] LABS: BASO % 0.2 % (0-2.0); EOS % 0.2 % (0-4.5); HEMATOCRIT 34.3 % (35.4-49); HEMOGLOBIN 11.7 GM/dL (11.7-16.9); MCH 30.8 pg (25.7-33.7); MEAN CELL VOLUME 90.5 fl (80-96); MEAN PLT VOLUME 10.2 fl (7.5-11.1); MONO % 16.1 % (3.8-10.2); NEUT % 77.5 % (42.8-82.8); PLATELET COUNT 69 K/MM3 (134-434); RBC 3.79 M/mm3 (4.00-5.60); RDW 14.2 % (11.9-15.9); WHITE BLOOD COUNT 16.8 K/mm3 (4.0-10.0)
[2018-12-09 07:20] LABS: ALBUMIN 3.1 g/dl (3.4-5.0); BILIRUBIN,TOTAL 1.1 mg/dL (0.2-1); BLOOD UREA NITROGEN 51.3 mg/dL (7-18); CALCIUM 8.1 mg/dL (8.5-10.1); CREATININE 4.4 mg/dL (0.55-1.3); POTASSIUM 3.7 mmol/L (3.5-5.1); TOT PROT 5.4 g/dl (6.4-8.2)
[2018-12-09] MEDS: TAMSULOSIN HCL 0.4 MG CAP PO SCH (08:58)
[2018-12-09] MEDS: TORSEMIDE 100 MG TABLET PO SCH (09:10)
[2018-12-09] MEDS: VITAMIN B COMP W-C 1 EA TABLET PO SCH (09:11)
[2018-12-09] MEDS: ALLOPURINOL 100 MG TABLET (FP) PO SCH (09:12)
--- NOTE | 2018-12-09 09:12 | CON.GU ---
Consult Consult Specialty:: Referred by:: Josefa Reason for Consultation:: UTI - History of Present Illness Chief Complaint: UTI History of Present Illness: 88 year old male with history of urethral strictures underwent a SP tube placement. He subsequently developed fever, chill, and low BP. - History Source History Provided By: Patient, Medical Record Limitations to Obtaining History: No Limitations - Past Medical History Cardio/Vascular: Yes: AFIB (on AC), CAD, HTN, Hyperlipdemia, Other (SSS with PPM ) Pulmonary: Yes: COPD Renal/: Yes: BPH, Cancer (prostate), Hemodialysis, Renal Calculi, Other ( urinary incontinence) - Past Surgical History Past Surgical History: Yes: Appendectomy, Hernia Repair, Joint Replacement - Alcohol/Substance Use Hx Alcohol Use: No History of Substance Use: reports: None - Smoking History Smoking history: Never smoked Have you smoked in the past 12 months: No Aproximately how many cigarettes per day: 0 If you are a former smoker, when did you quit?: 40 YEARS AGO - Social History ADL: Independent History of Recent Travel: No Home Medications - Allergies Allergies/Adverse Reactions: Allergies Allergy/AdvReac Type Severity Reaction Status Date / Time azithromycin AdvReac Intermediate HEADACHE Verified 12/07/18 16:49 - Home Medications Home Medications: Ambulatory Orders Albuterol Sulfate [Proair Respiclick] 90 mcg IH QID PRN 05/21/16 Allopurinol [Zyloprim -] 100 mg PO DAILY 05/21/16 Metoprolol Tartrate [Lopressor] 50 mg PO ASDIR 05/21/16 Tamsulosin HCl [Flomax] 0.4 mg PO DAILY 05/21/16 Triamcinolone Acetonide [Nasacort] 2 sprays NS DAILY 05/21/16 Fluticasone/Vilanterol [Breo Ellipta 200-25 Mcg INH] 1 each IH AM 11/04/17 Torsemide 50 mg PO DAILY 11/04/17 Lubiprostone [Amitiza] 24 mcg PO DAILY 09/30/18 Folic Acid/Vit B Complex and C [Joycelyn-Dustin Tablet] 0.8 mg PO DAILY 12/07/18 Ubidecarenone [Co Q-10] 100 mg PO DAILY 12/07/18 Warfarin Na [Coumadin -] 3 mg PO ASDIR 12/07/18 Warfarin Sodium [Coumadin] 4.5 mg PO ASDIR 12/07/18 Review of Systems - Review of Systems Constitutional: reports: Chills Genitourinary: reports: Burning Physical Exam- Vital Signs: Vital Signs Temperature 97.8 F 12/09/18 06:00 Pulse Rate 82 12/09/18 06:00 Respiratory Rate 18 12/09/18 06:00 Blood Pressure 96/48 L 12/09/18 06:00 O2 Sat by Pulse Oximetry (%) 95 12/09/18 03:56 Renal/: Yes: Other (SP tube in place and draining well. abd is soft) Labs: CBC, BMP 12/09/18 06:22 12/09/18 06:22 Problem List - Problems (1) Urinary tract infection Assessment/Plan: S/P SP tube placement with UTI and leukocytosis. continue abx. Code(s): N39.0 - URINARY TRACT INFECTION, SITE NOT SPECIFIED Qualifiers: Urinary tract infection type: acute cystitis Hematuria presence: without hematuria Qualified Code(s): N30.00 - Acute cystitis without hematuria
--- NOTE | 2018-12-09 09:36 | PN ---
Progress Note, Physician Chief Complaint: events noted; pt now on 8w axox3 NAD comfortable VSS but borderline low BP (but better) no CP/SOB not dizzy - Current Medication List Current Medications: Active Medications Albuterol Sulfate (Ventolin Hfa Inhaler -) 2 puff IH Q6H PRN PRN Reason: SHORTNESS OF BREATH Allopurinol (Zyloprim -) 100 mg PO DAILY [facility] Last Admin: 12/09/18 09:12 Dose: 100 mg Fluticasone Propionate (Flonase -) 2 spray NS DAILY [facility] Piperacillin Sod/Tazobactam (Sod 2.25 gm/ Dextrose) 50 mls @ 100 mls/hr IVPB Q6H-IV KASSANDR[facility]; Protocol Last Admin: 12/09/18 08:59 Dose: 100 mls/hr Multivit/Ca Carb/B Cmplx/FA/Prenat (Nephro-Dustin -) 1 tablet PO DAILY [facility] Last Admin: 12/09/18 09:11 Dose: 1 tablet Non-Formulary Medication (Fluticasone/Vilanterol [Breo Ellipta 200-25 Mcg Inh]) 1 each IH AM [facility] Non-Formulary Medication (Lubiprostone [Amitiza]) 24 mcg PO DAILY [facility] Tamsulosin HCl (Flomax -) 0.4 mg PO DAILY@0830 [facility] Last Admin: 12/09/18 08:58 Dose: 0.4 mg Torsemide (Demadex -) 50 mg PO DAILY [facility] Last Admin: 12/09/18 09:10 Dose: Not Given - Objective Vital Signs: Vital Signs Temperature 97.8 F 12/09/18 06:00 Pulse Rate 82 12/09/18 06:00 Respiratory Rate 18 12/09/18 06:00 Blood Pressure 96/48 L 12/09/18 06:00 O2 Sat by Pulse Oximetry (%) 95 12/09/18 03:56 Constitutional: Yes: No Distress, Calm Eyes: Yes: Conjunctiva Clear HENT: Yes: Atraumatic Neck: Yes: Supple Cardiovascular: No: Regular Rate and Rhythm Respiratory: Yes: Diminished Gastrointestinal: Yes: Soft. No: Tenderness Genitourinary: Yes: Other (suprapubic cath) Musculoskeletal: No: Joint Stiffness, Joint Swelling Extremities: No: Cold, Cool, Cyanosis Edema: No Integumentary: No: Rash, Venous Stasis Changes Neurological: Yes: WNL, Alert, Oriented ...Motor Strength: WNL Psychiatric: Yes: WNL, Alert, Oriented. No: Agitated, Suicidal Ideation Labs: CBC, BMP 12/09/18 06:22 12/09/18 06:22 INR, PTT INR 1.15 (0.83-1.09) H 12/08/18 08:34 - ....Imaging Other: Report Reviewed Assessment/Plan 88y/o M h/o esrd on m/w/f dialysis, prostate ca with h/o retention requiring indwelling lawrence catheter, uretral stenosis, recurring UTI, admitted after he developed hypoTA and chills after outpatient suprapubic catheter placement. IV ATB per ID; eval HD per renal check labs and cultures DVT falls decubs PFX d/w pt do not get OOB alone restart coumadin when OK with hold BP meds if SBP<100; will ask cardio to see him too d/w pt and staff
[2018-12-09] MEDS ORDERED: SODIUM CHLORIDE 250 ML IV PRN (09:50)
[2018-12-09] MEDS ORDERED: PATIENT'S OWN MEDICATION (NON-FORMULARY) (Lubiprostone [Amitiza] 24 MCG) PO SCH (10:00)
--- NOTE | 2018-12-09 11:21 | PN ---
Progress Note (short form) - Note Progress Note: d/w SARAH Cerda OK to restart coumadin po tonight; no bleeding; H&H stable; f/u CBC and INR in am.
--- NOTE | 2018-12-09 12:48 | CON.CARD ---
Consult Consult Specialty:: Cardiology Referred by:: Kayla Rivero MD Reason for Consultation:: Afib - History of Present Illness Chief Complaint: Chills History of Present Illness: Pt with significant Hx/o ESRD on HD, nonobstuctive CAD, diastolic dysfunction, self bladder catheterization for urinary retention secondary to uretral strictures, had suprapubic cath, while ASU pt felt weak, started to shake and abd abdominal pain; rapid response was called, found to be hypotensive, received IVF bolus X 2, IV abx; pt continued to feel weaker and was admitted, now feels improved, tolerating HD, afebrile. Last office visit 08/10/2018. - History Source History Provided By: Patient Limitations to Obtaining History: No Limitations - Past Medical History Cardio/Vascular: Yes: AFIB (on AC), CAD, HTN, Hyperlipdemia, Other (SSS with PPM ) Pulmonary: Yes: COPD Renal/: Yes: BPH, Cancer (prostate), Hemodialysis, Renal Calculi, Other ( urinary incontinence) - Past Surgical History Past Surgical History: Yes: Appendectomy, Hernia Repair, Joint Replacement - Alcohol/Substance Use Hx Alcohol Use: No History of Substance Use: reports: None - Smoking History Smoking history: Never smoked Have you smoked in the past 12 months: No Aproximately how many cigarettes per day: 0 If you are a former smoker, when did you quit?: 40 YEARS AGO - Social History ADL: Independent History of Recent Travel: No Home Medications - Allergies Allergies/Adverse Reactions: Allergies Allergy/AdvReac Type Severity Reaction Status Date / Time azithromycin AdvReac Intermediate HEADACHE Verified 12/07/18 16:49 - Home Medications Home Medications: Ambulatory Orders Albuterol Sulfate [Proair Respiclick] 90 mcg IH QID PRN 05/21/16 Allopurinol [Zyloprim -] 100 mg PO DAILY 05/21/16 Metoprolol Tartrate [Lopressor] 50 mg PO ASDIR 05/21/16 Tamsulosin HCl [Flomax] 0.4 mg PO DAILY 05/21/16 Triamcinolone Acetonide [Nasacort] 2 sprays NS DAILY 05/21/16 Fluticasone/Vilanterol [Breo Ellipta 200-25 Mcg INH] 1 each IH AM 11/04/17 Torsemide 50 mg PO DAILY 11/04/17 Lubiprostone [Amitiza] 24 mcg PO DAILY 09/30/18 Folic Acid/Vit B Complex and C [Joycelyn-Dustin Tablet] 0.8 mg PO DAILY 12/07/18 Ubidecarenone [Co Q-10] 100 mg PO DAILY 12/07/18 Warfarin Na [Coumadin -] 3 mg PO ASDIR 12/07/18 Warfarin Sodium [Coumadin] 4.5 mg PO ASDIR 12/07/18 Review of Systems - Review of Systems Constitutional: reports: Chills, Malaise Vital Signs: Vital Signs Temperature 98.5 F 12/09/18 10:45 Pulse Rate 66 12/09/18 12:20 Respiratory Rate 18 12/09/18 12:20 Blood Pressure 102/47 L 12/09/18 12:20 O2 Sat by Pulse Oximetry (%) 95 12/09/18 03:56 Constitutional: Yes: No Distress, Calm Neck: Yes: Supple Respiratory: Yes: Regular, Diminished Gastrointestinal: Yes: Normal Bowel Sounds, Soft Renal/: Yes: Other (SPT in place) Cardiovascular: Yes: Pulse Irregular Heart Sounds: Yes: S1, S2 Murmur: Yes: Systolic Murmur, Grade 1 Edema: No - Other Data Labs, Other Data: CBC, BMP 12/09/18 06:22 12/09/18 06:22 INR, PTT INR 1.15 (0.83-1.09) H 12/08/18 08:34 Troponin, BNP 12/08/18 13:22 Troponin I < 0.02 Troponin, BNP 12/08/18 13:22 Troponin I < 0.02 Echo: Report Reviewed Ejection Fraction %: LVEF > or = 40 % Imaging - Results Cat Scan: Report Reviewed (COPD, NAD) Problem List - Problems (1) Sepsis Code(s): A41.9 - SEPSIS, UNSPECIFIED ORGANISM (2) A-fib Code(s): I48.91 - UNSPECIFIED ATRIAL FIBRILLATION Qualifiers: Atrial fibrillation type: permanent Qualified Code(s): I48.21 - Permanent atrial fibrillation (3) CAD (coronary artery disease) Code(s): I25.10 - ATHSCL HEART DISEASE OF [place] CORONARY ARTERY W/O ANG PCTRS Qualifiers: Coronary Disease-Associated Artery/Lesion type: [place] artery [place] vs. transplanted heart: [place] heart Associated angina: without angina Qualified Code(s): I25.10 - Atherosclerotic heart disease of [place] coronary artery without angina pectoris (4) Congestive heart failure with LV diastolic dysfunction, NYHA class 2 Code(s): I50.30 - UNSPECIFIED DIASTOLIC (CONGESTIVE) HEART FAILURE (5) ESRD (end stage renal disease) on dialysis Code(s): N18.6 - END STAGE RENAL DISEASE; Z99.2 - DEPENDENCE ON RENAL DIALYSIS (6) History of pacemaker Code(s): Z95.0 - PRESENCE OF CARDIAC PACEMAKER (7) Hyperlipidemia Code(s): E78.5 - HYPERLIPIDEMIA, UNSPECIFIED Qualifiers: Hyperlipidemia type: pure hypercholesterolemia Qualified Code(s): E78.00 - Pure hypercholesterolemia, unspecified (8) Hypertension Code(s): I10 - ESSENTIAL (PRIMARY) HYPERTENSION Qualifiers: Hypertension type: essential hypertension (9) SSS (sick sinus syndrome) Code(s): I49.5 - SICK SINUS SYNDROME (10) Urethral stricture Code(s): N35.9 - URETHRAL STRICTURE, UNSPECIFIED * DO NOT USE * Qualifiers: Urethral stricture type: other stricture (11) Urinary retention Code(s): R33.9 - RETENTION OF URINE, UNSPECIFIED Assessment/Plan 04/17/2018 Echo: Normal LV and RV size and fxn LVEF 60-65%, severe LAE, mod ZULY , mod MR, mild-mod AR, mod TR RVSP 47 mmHg 05/25/2016 Echocardiography performed yesterday revealed overall preserved left ventricular systolic function, bi-atrial dilatation, mild mitral valve regurgitation, mild to moderate tricuspid valve regurgitation 1. Suspect sepsis secondary to procedure-SPT catheter placement, prior history of pseudomonas uti (most recent) 2. H/o ERCP with extraction of choledocholithiasis and s/p lap cholecystectomy 3. LV diastolic dysfunction 4. CAD non-obstructive CAD angina pectoris 5. Permanent atrial fibrillation on A/C with Coumadin subtherapeutic INR 6. Sick Sinus Syndrome post PPM 7. HTN 8. Hypercholesterolemia 9. Degenerative joint disease 10. ESRD on HD 11. History of bilateral nephrolithiasis and urethral stricture 12. Chronic anemia of CKD 13. COPD PLAN: 1. IV abx per C&S 2. Continue Lopressor 50 bid 3. Coumadin per INR 4. Demadex and HD per renal 5. Bronchodilator as needed, Losartan as hemodynamics tolerate 6. Thank you for consultative opportunity
[2018-12-09] MEDS: FLUTICASONE PROP 0.05% 16 GM NASAL SPRAY NS SCH (14:43)
--- NOTE | 2018-12-09 15:16 | PN ---
Progress Note (short form) - Note Progress Note: feels improved today ate some lunch less abdominal pain Vital Signs Period Temp Pulse Resp BP Sys/Askew Pulse Ox Last 24 Hr 97.7 F-98.5 F 66-93 18-24 80-110/43-59 95-100 cor-rrr lungs clear abd soft, +spt, mild tenderness to palpation-clear urine ext no edema CBC, BMP 12/09/18 06:22 12/09/18 06:22 Microbiology 12/08/18 13:28 Blood - Peripheral Venous Blood Culture - Preliminary NO GROWTH OBTAINED AFTER 24 HOURS, INCUBATION TO CONTINUE FOR 4 DAYS. 12/08/18 13:22 Blood - Peripheral Venous Blood Culture - Preliminary NO GROWTH OBTAINED AFTER 24 HOURS, INCUBATION TO CONTINUE FOR 4 DAYS. a/p suspect sepsis secondary to procedure-SPT catheter placement prior history of pseudomonas uti (most recent) history of urethral stricture esrd/hd continue zosyn f/u cultures
[2018-12-09] MEDS: WARFARIN NA 3 MG TABLET PO SCH (17:15)
[2018-12-10] MEDS ORDERED: PIPERACILLIN/TAZOBACTAM 2.25 GM VIAL IVPB ONE ×3 (02:58→17:32)
[2018-12-10] MEDS ORDERED: DEXTROSE 5%-WATER - 50 ML IVPB ONE ×3 (02:58→17:32)
[2018-12-10] MEDS: PIPERACILLIN/TAZOB 2.25 GM 2.25 GM in DEXTROSE 5%-WATER - 50 ML IVPB SCH ×3 (03:00→17:36)
[2018-12-10] MEDS: TAMSULOSIN HCL 0.4 MG CAP PO SCH ×2 (08:57→09:01)
--- NOTE | 2018-12-10 09:04 | PN ---
Progress Note, Physician Chief Complaint: in bed at bedside does not want flomax will DC seen by no pain no fever weak; to start PT - Current Medication List Current Medications: Active Medications Albuterol Sulfate (Ventolin Hfa Inhaler -) 2 puff IH Q6H PRN PRN Reason: SHORTNESS OF BREATH Allopurinol (Zyloprim -) 100 mg PO DAILY [facility] Last Admin: 12/09/18 09:12 Dose: 100 mg Fluticasone Propionate (Flonase -) 2 spray NS DAILY [facility] Last Admin: 12/09/18 14:43 Dose: 2 spray Piperacillin Sod/Tazobactam (Sod 2.25 gm/ Dextrose) 50 mls @ 100 mls/hr IVPB Q6H-IV [facility]; Protocol Last Admin: 12/10/18 08:57 Dose: 100 mls/hr Sodium Chloride (Normal Saline -) 250 mls @ 3,000 mls/hr IV PRN PRN PRN Reason: Hypotension during Dialysis Stop: 12/10/18 09:50 Multivit/Ca Carb/B Cmplx/FA/Prenat (Nephro-Dustin -) 1 tablet PO DAILY [facility] Last Admin: 12/09/18 09:11 Dose: 1 tablet Non-Formulary Medication (Fluticasone/Vilanterol [Breo Ellipta 200-25 Mcg Inh]) 1 each IH AM [facility] Non-Formulary Medication (Lubiprostone [Amitiza]) 24 mcg PO DAILY [facility] Tamsulosin HCl (Flomax -) 0.4 mg PO DAILY@0830 [facility] Last Admin: 12/10/18 09:01 Dose: Not Given Torsemide (Demadex -) 50 mg PO DAILY [facility] Last Admin: 12/09/18 09:10 Dose: Not Given Warfarin Sodium (Coumadin -) 3 mg PO DAILY@1800 [facility] Last Admin: 12/09/18 17:15 Dose: Not Given - Objective Vital Signs: Vital Signs Temperature 97.8 F 12/10/18 04:00 Pulse Rate 81 12/10/18 04:00 Respiratory Rate 18 12/10/18 04:00 Blood Pressure 94/56 L 12/10/18 04:00 O2 Sat by Pulse Oximetry (%) 95 12/09/18 21:00 Constitutional: Yes: No Distress, Calm Eyes: Yes: Conjunctiva Clear HENT: Yes: Atraumatic Neck: Yes: Supple Cardiovascular: No: Regular Rate and Rhythm Respiratory: Yes: Diminished Gastrointestinal: Yes: Soft. No: Tenderness Genitourinary: Yes: Other (suprapubic cath slight hematuria in bag) Musculoskeletal: No: Back Pain, Joint Stiffness Extremities: No: Cold, Cool, Cyanosis Edema: No Integumentary: No: Rash, Venous Stasis Changes Neurological: Yes: WNL, Alert, Oriented ...Motor Strength: WNL Psychiatric: Yes: WNL, Alert, Oriented. No: Agitated, Suicidal Ideation Labs: CBC, BMP 12/09/18 06:22 12/09/18 06:22 INR, PTT INR 1.15 (0.83-1.09) H 12/08/18 08:34 - ....Imaging Other: Report Reviewed Assessment/Plan 88y/o M h/o esrd on m/w/f dialysis, prostate ca with h/o retention requiring indwelling lawrence catheter, uretral stenosis, recurring UTI, admitted after he developed hypoTA and chills after outpatient suprapubic catheter placement. IV ATB per ID; eval HD per renal check labs and cultures DVT falls decubs PFX d/w pt do not get OOB alone restart coumadin when OK with hold BP meds if SBP<100; cardio f/u d/w pt and staff d/w at bedside
--- NOTE | 2018-12-10 09:19 | PN ---
Progress Note, Physician History of Present Illness: Reports recurrent chills and loose stools, feels weak. OOB in chair. - Current Medication List Current Medications: Active Medications Albuterol Sulfate (Ventolin Hfa Inhaler -) 2 puff IH Q6H PRN PRN Reason: SHORTNESS OF BREATH Allopurinol (Zyloprim -) 100 mg PO DAILY [facility] Last Admin: 12/09/18 09:12 Dose: 100 mg Fluticasone Propionate (Flonase -) 2 spray NS DAILY [facility] Last Admin: 12/09/18 14:43 Dose: 2 spray Piperacillin Sod/Tazobactam (Sod 2.25 gm/ Dextrose) 50 mls @ 100 mls/hr IVPB Q6H-IV [facility]; Protocol Last Admin: 12/10/18 08:57 Dose: 100 mls/hr Sodium Chloride (Normal Saline -) 250 mls @ 3,000 mls/hr IV PRN PRN PRN Reason: Hypotension during Dialysis Stop: 12/10/18 09:50 Multivit/Ca Carb/B Cmplx/FA/Prenat (Nephro-Dustin -) 1 tablet PO DAILY [facility] Last Admin: 12/09/18 09:11 Dose: 1 tablet Non-Formulary Medication (Fluticasone/Vilanterol [Breo Ellipta 200-25 Mcg Inh]) 1 each IH AM [facility] Non-Formulary Medication (Lubiprostone [Amitiza]) 24 mcg PO DAILY [facility] Tamsulosin HCl (Flomax -) 0.4 mg PO DAILY@0830 [facility] Last Admin: 12/10/18 09:01 Dose: Not Given Torsemide (Demadex -) 50 mg PO DAILY [facility] Last Admin: 12/09/18 09:10 Dose: Not Given Warfarin Sodium (Coumadin -) 3 mg PO DAILY@1800 [facility] Last Admin: 12/09/18 17:15 Dose: Not Given - Objective Vital Signs: Vital Signs Temperature 97.8 F 12/10/18 04:00 Pulse Rate 81 12/10/18 04:00 Respiratory Rate 18 12/10/18 04:00 Blood Pressure 94/56 L 12/10/18 04:00 O2 Sat by Pulse Oximetry (%) 95 12/09/18 21:00 Constitutional: Yes: No Distress, Calm, Thin Neck: Yes: Supple Cardiovascular: Yes: Regular Rate and Rhythm Respiratory: Yes: Regular, Diminished Gastrointestinal: Yes: Soft, Hypoactive Bowel Sounds Edema: No Labs: INR, PTT INR 1.15 (0.83-1.09) H 12/08/18 08:34 Problem List - Problems (1) Sepsis Code(s): A41.9 - SEPSIS, UNSPECIFIED ORGANISM (2) A-fib Code(s): I48.91 - UNSPECIFIED ATRIAL FIBRILLATION Qualifiers: Atrial fibrillation type: permanent Qualified Code(s): I48.21 - Permanent atrial fibrillation (3) CAD (coronary artery disease) Code(s): I25.10 - ATHSCL HEART DISEASE OF [place] CORONARY ARTERY W/O ANG PCTRS Qualifiers: Coronary Disease-Associated Artery/Lesion type: [place] artery [place] vs. transplanted heart: [place] heart Associated angina: without angina Qualified Code(s): I25.10 - Atherosclerotic heart disease of [place] coronary artery without angina pectoris (4) Congestive heart failure with LV diastolic dysfunction, NYHA class 2 Code(s): I50.30 - UNSPECIFIED DIASTOLIC (CONGESTIVE) HEART FAILURE (5) ESRD (end stage renal disease) on dialysis Code(s): N18.6 - END STAGE RENAL DISEASE; Z99.2 - DEPENDENCE ON RENAL DIALYSIS (6) History of pacemaker Code(s): Z95.0 - PRESENCE OF CARDIAC PACEMAKER (7) Hyperlipidemia Code(s): E78.5 - HYPERLIPIDEMIA, UNSPECIFIED Qualifiers: Hyperlipidemia type: pure hypercholesterolemia Qualified Code(s): E78.00 - Pure hypercholesterolemia, unspecified (8) Hypertension Code(s): I10 - ESSENTIAL (PRIMARY) HYPERTENSION Qualifiers: Hypertension type: essential hypertension (9) SSS (sick sinus syndrome) Code(s): I49.5 - SICK SINUS SYNDROME (10) Urethral stricture Code(s): N35.9 - URETHRAL STRICTURE, UNSPECIFIED * DO NOT USE * Qualifiers: Urethral stricture type: other stricture (11) Urinary retention Code(s): R33.9 - RETENTION OF URINE, UNSPECIFIED Assessment/Plan 04/17/2018 Echo: Normal LV and RV size and fxn LVEF 60-65%, severe LAE, mod ZULY , mod MR, mild-mod AR, mod TR RVSP 47 mmHg 05/25/2016 Echocardiography performed yesterday revealed overall preserved left ventricular systolic function, bi-atrial dilatation, mild mitral valve regurgitation, mild to moderate tricuspid valve regurgitation 1. Suspect sepsis secondary to procedure-SPT catheter placement, prior history of pseudomonas uti (most recent) 2. H/o ERCP with extraction of choledocholithiasis and s/p lap cholecystectomy 3. LV diastolic dysfunction 4. CAD non-obstructive CAD angina pectoris 5. Permanent atrial fibrillation on A/C with Coumadin subtherapeutic INR 6. Sick Sinus Syndrome post PPM 7. HTN 8. Hypercholesterolemia 9. Degenerative joint disease 10. ESRD on HD 11. History of bilateral nephrolithiasis and urethral stricture 12. Chronic anemia of CKD 13. COPD 14. Diarrhea r/o c. diff PLAN: 1. IV abx per C&S, f/u c. diff toxin 2. Resume Toprol XL 25 qd as hemodynamics tolerate 3. Coumadin per INR 4. Demadex 50 qd and HD per renal 5. Bronchodilator as needed, Losartan as hemodynamics tolerate
[2018-12-10 09:21] LABS: BASO % 0.6 % (0-2.0); EOS % 1.3 % (0-4.5); HEMOGLOBIN 11.9 GM/dL (11.7-16.9); LYMPH % 14.5 % (8-40); MCH 30.8 pg (25.7-33.7); MEAN CELL VOLUME 90.5 fl (80-96); MEAN PLT VOLUME 10.4 fl (7.5-11.1); MONO % 19.5 % (3.8-10.2); NEUT % 64.1 % (42.8-82.8); PLATELET COUNT 65 K/MM3 (134-434); RBC 3.87 M/mm3 (4.00-5.60); RDW 14.5 % (11.9-15.9); WHITE BLOOD COUNT 7.2 K/mm3 (4.0-10.0)
[2018-12-10 09:38] LABS: INR 1.26 (0.83-1.09); PROTHROMBIN TIME (PATIENT) 14.9 SEC (9.7-13.0)
[2018-12-10 10:16] LABS: ALBUMIN 3.1 g/dl (3.4-5.0); BLOOD UREA NITROGEN 27.9 mg/dL (7-18); CALCIUM 8.6 mg/dL (8.5-10.1); CREATININE 3.6 mg/dL (0.55-1.3); POTASSIUM 3.2 mmol/L (3.5-5.1); TOT PROT 5.5 g/dl (6.4-8.2)
[2018-12-10 12:25] LABS: ANISOCYTOSIS 1+; MACROCYTOSIS 0; PLATELET ESTIMATE DECREASED; TEAR DROP CELLS 1+
--- NOTE | 2018-12-10 13:59 | PN ---
Progress Note (short form) - Note Progress Note: 5 loose BMS since midnight some chills this am no vomiting less abdomnal pain Vital Signs Period Temp Pulse Resp BP Sys/Askew Pulse Ox Last 24 Hr 97.8 F-99.3 F 79-93 16-20 94-110/39-59 95 cor-rrr lungs clear abd soft, minimal tenderness at SPT site ext no edema CBC, BMP 12/10/18 07:45 12/10/18 07:45 Microbiology 12/08/18 13:28 Blood - Peripheral Venous Blood Culture - Preliminary NO GROWTH OBTAINED AFTER 48 HOURS, INCUBATION TO CONTINUE FOR 3 DAYS. 12/08/18 13:22 Blood - Peripheral Venous Blood Culture - Preliminary NO GROWTH OBTAINED AFTER 48 HOURS, INCUBATION TO CONTINUE FOR 3 DAYS. 12/08/18 15:20 Urine - Urine Suprapubic Urine Culture - Final NO GROWTH OBTAINED Current Medications Albuterol Sulfate (Ventolin Hfa Inhaler -) 2 puff IH Q6H PRN PRN Reason: SHORTNESS OF BREATH Allopurinol (Zyloprim -) 100 mg PO DAILY [facility] Last Admin: 12/09/18 09:12 Dose: 100 mg Fluticasone Propionate (Flonase -) 2 spray NS DAILY [facility] Last Admin: 12/09/18 14:43 Dose: 2 spray Piperacillin Sod/Tazobactam (Sod 2.25 gm/ Dextrose) 50 mls @ 100 mls/hr IVPB Q6H-IV [facility]; Protocol Last Admin: 12/10/18 08:57 Dose: 100 mls/hr Sodium Chloride (Normal Saline -) 250 mls @ 3,000 mls/hr IV PRN PRN PRN Reason: Hypotension during Dialysis Stop: 12/10/18 09:50 Multivit/Ca Carb/B Cmplx/FA/Prenat (Nephro-Dustin -) 1 tablet PO DAILY [facility] Last Admin: 12/09/18 09:11 Dose: 1 tablet Non-Formulary Medication (Fluticasone/Vilanterol [Breo Ellipta 200-25 Mcg Inh]) 1 each IH AM [facility] Non-Formulary Medication (Lubiprostone [Amitiza]) 24 mcg PO DAILY [facility] Tamsulosin HCl (Flomax -) 0.4 mg PO DAILY@0830 [facility] Last Admin: 12/10/18 09:01 Dose: Not Given Torsemide (Demadex -) 50 mg PO DAILY [facility] Last Admin: 12/09/18 09:10 Dose: Not Given Warfarin Sodium (Coumadin -) 3 mg PO DAILY@1800 [facility] Last Admin: 12/09/18 17:15 Dose: Not Given a/p sepsis secondary to SPT now with diarrhea sent stool cdiff send stool ob continue zosyn urine culture probably negative due to levaquin plrior to procedure esrd/hd
[2018-12-10] MEDS: TORSEMIDE 100 MG TABLET PO SCH (14:15)
[2018-12-10] MEDS: ALLOPURINOL 100 MG TABLET (FP) PO SCH (14:16)
[2018-12-10] MEDS: VITAMIN B COMP W-C 1 EA TABLET PO SCH (14:18)
[2018-12-10] MEDS: FLUTICASONE PROP 0.05% 16 GM NASAL SPRAY NS SCH (14:19)
--- NOTE | 2018-12-10 16:10 | CONSULT ---
Consult - text type - Consultation Consultation Note: Renal consult for ESRD on HD This is a 88 year old gentleman with history of ESRD on HD, Prostate cancer, BPH , Afib on anticoagulation, CAD, hypertension who was admitted with hypotension/ abd pain following supra-pubic catheter placement. Pt s/p dialysis yesterday as an inpatient w/o complication. Denies any chest pain, sob, fever, chills. Did have loose stools today. Supra-pubic catheter draining urine. PMHx: as above Allergies: NKDA Family Hx: [place] Social Hx: No T/A/D ROS: as per HPI, all other pertinent ros negative Home Medications Medication Instructions Recorded Albuterol Sulfate [Proair 90 mcg IH QID PRN 05/21/16 Respiclick] Allopurinol [Zyloprim -] 100 mg PO DAILY 05/21/16 Metoprolol Tartrate [Lopressor] 50 mg PO ASDIR 05/21/16 Tamsulosin HCl [Flomax] 0.4 mg PO DAILY 05/21/16 Triamcinolone Acetonide [Nasacort] 2 sprays NS DAILY 05/21/16 Fluticasone/Vilanterol [Breo 1 each IH AM 11/04/17 Ellipta 200-25 Mcg INH] Torsemide 50 mg PO DAILY 11/04/17 Lubiprostone [Amitiza] 24 mcg PO DAILY 09/30/18 Folic Acid/Vit B Complex and C 0.8 mg PO DAILY 12/07/18 [Joycelyn-Dustin Tablet] Ubidecarenone [Co Q-10] 100 mg PO DAILY 12/07/18 Warfarin Na [Coumadin -] 3 mg PO ASDIR 12/07/18 Warfarin Sodium [Coumadin] 4.5 mg PO ASDIR 12/07/18 Vital Signs Temperature 97.6 F 12/10/18 15:00 Pulse Rate 82 12/10/18 15:00 Respiratory Rate 18 12/10/18 15:00 Blood Pressure 105/59 L 12/10/18 15:00 O2 Sat by Pulse Oximetry (%) 95 12/09/18 21:00 Intake & Output 12/07/18 12/08/18 12/09/18 12/10/18 23:59 23:59 23:59 23:59 Intake Total 2218 0 Output Total 2600 450 Balance -382 -450 Weight 76.204 kg 78.16 kg 44.197 kg 79.379 kg NAD awake and alert neck supple RRR CTA soft NT/ND no LE edema CBC, BMP 12/10/18 07:45 12/10/18 07:45 Current Medications Albuterol Sulfate (Ventolin Hfa Inhaler -) 2 puff IH Q6H PRN PRN Reason: SHORTNESS OF BREATH Allopurinol (Zyloprim -) 100 mg PO DAILY [facility] Last Admin: 12/10/18 14:16 Dose: Not Given Fluticasone Propionate (Flonase -) 2 spray NS DAILY [facility] Last Admin: 12/10/18 14:19 Dose: 2 spray Sodium Chloride (Normal Saline -) 250 mls @ 3,000 mls/hr IV PRN PRN PRN Reason: Hypotension during Dialysis Stop: 12/10/18 09:50 Piperacillin Sod/Tazobactam (Sod 2.25 gm/ Dextrose) 50 mls @ 100 mls/hr IVPB Q8H-IV [facility]; Protocol Multivit/Ca Carb/B Cmplx/FA/Prenat (Nephro-Dsutin -) 1 tablet PO DAILY [facility] Last Admin: 12/10/18 14:18 Dose: 1 tablet Non-Formulary Medication (Fluticasone/Vilanterol [Breo Ellipta 200-25 Mcg Inh]) 1 each IH AM [facility] Non-Formulary Medication (Lubiprostone [Amitiza]) 24 mcg PO DAILY [facility] Tamsulosin HCl (Flomax -) 0.4 mg PO DAILY@0830 [facility] Last Admin: 12/10/18 09:01 Dose: Not Given Torsemide (Demadex -) 50 mg PO DAILY [facility] Last Admin: 12/10/18 14:15 Dose: Not Given Warfarin Sodium (Coumadin -) 3 mg PO DAILY@1800 [facility] Last Admin: 12/09/18 17:15 Dose: Not Given 88 year old gentleman with history of ESRD on HD, Prostate cancer, BPH, Afib on anticoagulation, CAD, hypertension who was admitted with hypotension/abd pain following supra-pubic catheter placement. 1. ESRD on HD 2. Suspected sepsis following supra-pubic catheter placement 3. Afib on anticoagulation 4. BPH/Urinary retention s/p dialysis yesterday, no acute need for [employer]UD[employer]ERK today next dialysis planned for tomorrow. continue empiric antibiotics as per ID Hgb stable and at goal continue flow max warfarin as per primary team Jacques Esquivel DO
[2018-12-10] MEDS ORDERED: SODIUM CHLORIDE 250 ML IV PRN (16:16)
[2018-12-10] MEDS: WARFARIN NA 3 MG TABLET PO SCH (17:59)
[2018-12-11] MEDS ORDERED: PIPERACILLIN/TAZOBACTAM 2.25 GM VIAL IVPB ONE ×2 (02:25→09:09)
[2018-12-11] MEDS ORDERED: DEXTROSE 5%-WATER - 50 ML IVPB ONE ×2 (02:26→09:09)
[2018-12-11] MEDS: PIPERACILLIN/TAZOB 2.25 GM 2.25 GM in DEXTROSE 5%-WATER - 50 ML IVPB SCH ×3 (02:29→18:52)
[2018-12-11 07:13] LABS: EOS % 1.9 % (0-4.5); HEMATOCRIT 33.9 % (35.4-49); HEMOGLOBIN 11.9 GM/dL (11.7-16.9); LYMPH % 21.5 % (8-40); MCH 31.3 pg (25.7-33.7); MEAN CELL VOLUME 89.5 fl (80-96); MEAN PLT VOLUME 10.2 fl (7.5-11.1); MONO % 11.6 % (3.8-10.2); PLATELET COUNT 64 K/MM3 (134-434); RBC 3.79 M/mm3 (4.00-5.60); RDW 14.5 % (11.9-15.9); WHITE BLOOD COUNT 5.9 K/mm3 (4.0-10.0)
[2018-12-11 07:49] LABS: BILIRUBIN,TOTAL 0.6 mg/dL (0.2-1); BLOOD UREA NITROGEN 34.6 mg/dL (7-18); CALCIUM 8.2 mg/dL (8.5-10.1); POTASSIUM 3.1 mmol/L (3.5-5.1); TOT PROT 5.4 g/dl (6.4-8.2)
[2018-12-11 08:08] LABS: INR 1.17 (0.83-1.09); PROTHROMBIN TIME (PATIENT) 13.8 SEC (9.7-13.0)
[2018-12-11 08:18] LABS: CREATININE 4.2 mg/dL (0.55-1.3)
[2018-12-11] MEDS: TAMSULOSIN HCL 0.4 MG CAP PO SCH (09:16)
[2018-12-11] MEDS: ALLOPURINOL 100 MG TABLET (FP) PO SCH (09:16)
[2018-12-11] MEDS: VITAMIN B COMP W-C 1 EA TABLET PO SCH (09:17)
[2018-12-11] MEDS: TORSEMIDE 100 MG TABLET PO SCH (09:29)
[2018-12-11] MEDS: FLUTICASONE PROP 0.05% 16 GM NASAL SPRAY NS SCH (10:18)
--- NOTE | 2018-12-11 10:20 | PN ---
Progress Note (short form) - Note Progress Note: diarrhea has resolved feels well Vital Signs Period Temp Pulse Resp BP Sys/Askew Pulse Ox Last 24 Hr 97.5 F-98.1 F 81-94 18-20 98-111/50-68 98 cor-rrr lungs clear abd soft nt ext no edema +SPT- clear urine, no pain CBC, BMP 12/11/18 06:20 12/11/18 06:20 Microbiology 12/10/18 13:50 Stool Clostridioides difficile Antigen - Final-Negative 12/10/18 13:50 Stool Clostridioides difficile Toxin Assay - Final-Negative 12/08/18 13:28 Blood - Peripheral Venous Blood Culture - Preliminary NO GROWTH OBTAINED AFTER 48 HOURS, INCUBATION TO CONTINUE FOR 3 DAYS. 12/08/18 13:22 Blood - Peripheral Venous Blood Culture - Preliminary NO GROWTH OBTAINED AFTER 48 HOURS, INCUBATION TO CONTINUE FOR 3 DAYS. 12/08/18 15:20 Urine - Urine Suprapubic Urine Culture - Final NO GROWTH OBTAINED a/p sepsis secondary to SPT doing well no objection to switch to po levaquin day #3 antibioitics levaquin 500 mg times one, the 250 mg q48 hours- would treat for 7 days esrd/hd please call back if needed
[2018-12-11 10:22] LABS: ANISOCYTOSIS 0; MACROCYTOSIS 0; PLATELET ESTIMATE DECREASED
--- NOTE | 2018-12-11 10:56 | PN ---
Progress Note, Physician History of Present Illness: Recurrent chills and loose stools resolved, remains afebrile, feels stronger. Undergoing HD. - Current Medication List Current Medications: Active Medications Albuterol Sulfate (Ventolin Hfa Inhaler -) 2 puff IH Q6H PRN PRN Reason: SHORTNESS OF BREATH Allopurinol (Zyloprim -) 100 mg PO DAILY [facility] Last Admin: 12/11/18 09:16 Dose: 100 mg Fluticasone Propionate (Flonase -) 2 spray NS DAILY [facility] Last Admin: 12/11/18 10:18 Dose: 2 spray Piperacillin Sod/Tazobactam (Sod 2.25 gm/ Dextrose) 50 mls @ 100 mls/hr IVPB Q8H-IV [facility]; Protocol Last Admin: 12/11/18 09:16 Dose: 100 mls/hr Sodium Chloride (Normal Saline -) 250 mls @ 3,000 mls/hr IV PRN PRN PRN Reason: Hypotension during Dialysis Stop: 12/11/18 16:16 Multivit/Ca Carb/B Cmplx/FA/Prenat (Nephro-Dustin -) 1 tablet PO DAILY [facility] Last Admin: 12/11/18 09:17 Dose: 1 tablet Non-Formulary Medication (Fluticasone/Vilanterol [Breo Ellipta 200-25 Mcg Inh]) 1 each IH AM [facility] Non-Formulary Medication (Lubiprostone [Amitiza]) 24 mcg PO DAILY [facility] Tamsulosin HCl (Flomax -) 0.4 mg PO DAILY@0830 [facility] Last Admin: 12/11/18 09:16 Dose: Not Given Torsemide (Demadex -) 50 mg PO DAILY [facility] Last Admin: 12/11/18 09:29 Dose: Not Given Warfarin Sodium (Coumadin -) 3 mg PO DAILY@1800 [facility] Last Admin: 12/10/18 17:59 Dose: 3 mg - Objective Vital Signs: Vital Signs Temperature 97.8 F 12/11/18 10:30 Pulse Rate 75 12/11/18 10:44 Respiratory Rate 18 12/11/18 10:35 Blood Pressure 103/58 L 12/11/18 10:44 O2 Sat by Pulse Oximetry (%) 98 12/10/18 21:00 Constitutional: Yes: No Distress, Calm, Thin Neck: Yes: Supple Cardiovascular: Yes: Pulse Irregular Respiratory: Yes: Regular, CTA Bilaterally Gastrointestinal: Yes: Normal Bowel Sounds, Soft Edema: No Labs: CBC, BMP 12/11/18 06:20 12/11/18 06:20 INR, PTT INR 1.17 (0.83-1.09) H 12/11/18 06:20 Problem List - Problems (1) Sepsis Code(s): A41.9 - SEPSIS, UNSPECIFIED ORGANISM (2) A-fib Code(s): I48.91 - UNSPECIFIED ATRIAL FIBRILLATION Qualifiers: Atrial fibrillation type: permanent Qualified Code(s): I48.21 - Permanent atrial fibrillation (3) CAD (coronary artery disease) Code(s): I25.10 - ATHSCL HEART DISEASE OF [place] CORONARY ARTERY W/O ANG PCTRS Qualifiers: Coronary Disease-Associated Artery/Lesion type: ruby artery [place] vs. transplanted heart: ruby heart Associated angina: without angina Qualified Code(s): I25.10 - Atherosclerotic heart disease of [place] coronary artery without angina pectoris (4) Congestive heart failure with LV diastolic dysfunction, NYHA class 2 Code(s): I50.30 - UNSPECIFIED DIASTOLIC (CONGESTIVE) HEART FAILURE (5) ESRD (end stage renal disease) on dialysis Code(s): N18.6 - END STAGE RENAL DISEASE; Z99.2 - DEPENDENCE ON RENAL DIALYSIS (6) History of pacemaker Code(s): Z95.0 - PRESENCE OF CARDIAC PACEMAKER (7) Hyperlipidemia Code(s): E78.5 - HYPERLIPIDEMIA, UNSPECIFIED Qualifiers: Hyperlipidemia type: pure hypercholesterolemia Qualified Code(s): E78.00 - Pure hypercholesterolemia, unspecified (8) Hypertension Code(s): I10 - ESSENTIAL (PRIMARY) HYPERTENSION Qualifiers: Hypertension type: essential hypertension (9) SSS (sick sinus syndrome) Code(s): I49.5 - SICK SINUS SYNDROME (10) Urethral stricture Code(s): N35.9 - URETHRAL STRICTURE, UNSPECIFIED * DO NOT USE * Qualifiers: Urethral stricture type: other stricture (11) Urinary retention Code(s): R33.9 - RETENTION OF URINE, UNSPECIFIED Assessment/Plan 04/17/2018 Echo: Normal LV and RV size and fxn LVEF 60-65%, severe LAE, mod ZULY , mod MR, mild-mod AR, mod TR RVSP 47 mmHg 05/25/2016 Echocardiography performed yesterday revealed overall preserved left ventricular systolic function, bi-atrial dilatation, mild mitral valve regurgitation, mild to moderate tricuspid valve regurgitation 1. Suspect sepsis secondary to procedure-SPT catheter placement, prior history of pseudomonas uti (most recent) 2. H/o ERCP with extraction of choledocholithiasis and s/p lap cholecystectomy 3. LV diastolic dysfunction 4. CAD non-obstructive CAD angina pectoris 5. Permanent atrial fibrillation on A/C with Coumadin subtherapeutic INR 6. Sick Sinus Syndrome post PPM 7. HTN 8. Hypercholesterolemia 9. Degenerative joint disease 10. ESRD on HD 11. History of bilateral nephrolithiasis and urethral stricture 12. Chronic anemia of CKD 13. COPD 14. Diarrhea ruled out c. diff PLAN: 1. Change to oral Levaquin course per ID 2. Resume Toprol XL 25 qd as hemodynamics tolerate 3. Coumadin dose per INR 4. Demadex 50 qd and HD per renal 5. Bronchodilator as needed, Losartan as hemodynamics tolerate
--- NOTE | 2018-12-11 12:48 | PN ---
Progress Note, Physician Chief Complaint: in HD feels better - Current Medication List Current Medications: Active Medications Albuterol Sulfate (Ventolin Hfa Inhaler -) 2 puff IH Q6H PRN PRN Reason: SHORTNESS OF BREATH Allopurinol (Zyloprim -) 100 mg PO DAILY [facility] Last Admin: 12/11/18 09:16 Dose: 100 mg Fluticasone Propionate (Flonase -) 2 spray NS DAILY [facility] Last Admin: 12/11/18 10:18 Dose: 2 spray Piperacillin Sod/Tazobactam (Sod 2.25 gm/ Dextrose) 50 mls @ 100 mls/hr IVPB Q8H-IV [facility]; Protocol Last Admin: 12/11/18 09:16 Dose: 100 mls/hr Sodium Chloride (Normal Saline -) 250 mls @ 3,000 mls/hr IV PRN PRN PRN Reason: Hypotension during Dialysis Stop: 12/11/18 16:16 Multivit/Ca Carb/B Cmplx/FA/Prenat (Nephro-Dustin -) 1 tablet PO DAILY [facility] Last Admin: 12/11/18 09:17 Dose: 1 tablet Non-Formulary Medication (Fluticasone/Vilanterol [Breo Ellipta 200-25 Mcg Inh]) 1 each IH AM [facility] Non-Formulary Medication (Lubiprostone [Amitiza]) 24 mcg PO DAILY [facility] Tamsulosin HCl (Flomax -) 0.4 mg PO DAILY@0830 [facility] Last Admin: 12/11/18 09:16 Dose: Not Given Torsemide (Demadex -) 50 mg PO DAILY [facility] Last Admin: 12/11/18 09:29 Dose: Not Given Warfarin Sodium (Coumadin -) 3 mg PO DAILY@1800 [facility] Last Admin: 12/10/18 17:59 Dose: 3 mg - Objective Vital Signs: Vital Signs Temperature 97.8 F 12/11/18 10:30 Pulse Rate 78 12/11/18 12:05 Respiratory Rate 18 12/11/18 12:05 Blood Pressure 108/70 12/11/18 12:05 O2 Sat by Pulse Oximetry (%) 98 12/11/18 09:00 Constitutional: Yes: No Distress, Calm Eyes: Yes: Conjunctiva Clear HENT: Yes: Atraumatic Neck: Yes: Supple Cardiovascular: No: Regular Rate and Rhythm Respiratory: Yes: Diminished Gastrointestinal: Yes: Soft. No: Tenderness Genitourinary: No: Hematuria (cleared) Musculoskeletal: No: Joint Stiffness, Joint Swelling Extremities: No: Cold, Cool, Cyanosis Edema: No Integumentary: No: Rash, Venous Stasis Changes Neurological: Yes: WNL, Alert, Oriented ...Motor Strength: WNL Psychiatric: Yes: WNL, Alert, Oriented. No: Agitated, Suicidal Ideation Labs: CBC, BMP 12/11/18 06:20 12/11/18 06:20 INR, PTT INR 1.17 (0.83-1.09) H 12/11/18 06:20 - ....Imaging Other: Report Reviewed Assessment/Plan 88y/o M h/o esrd on m/w/f dialysis, prostate ca with h/o retention requiring indwelling lawrence catheter, uretral stenosis, recurring UTI, admitted after he developed hypoTA and chills after outpatient suprapubic catheter placement. ATB per ID; f/u; HD per renal check labs and cultures DVT falls decubs PFX d/w pt do not get OOB alone restart coumadin f/u INR hold BP meds if SBP<100; cardio f/u d/w pt and staff
--- NOTE | 2018-12-11 13:17 | PN ---
Progress Note (short form) - Note Progress Note: Renal follow up for ESRD Seen and examined during dialysis awake and alert offers no acute complaints denies any sob, cp, abd pain BP stable, access with good flow UF goal 1.5-2 Vital Signs Temperature 97.8 F 12/11/18 10:30 Pulse Rate 80 12/11/18 12:35 Respiratory Rate 18 12/11/18 12:35 Blood Pressure 117/69 12/11/18 12:35 O2 Sat by Pulse Oximetry (%) 98 12/11/18 09:00 Intake & Output 12/08/18 12/09/18 12/10/18 12/11/18 23:59 23:59 23:59 23:59 Intake Total 2218 100 200 Output Total 2600 950 550 Balance -382 -850 -350 Weight 78.16 kg 44.197 kg 79.379 kg 78.063 kg NAD No LE edema CBC, BMP 12/11/18 06:20 12/11/18 06:20 Current Medications Albuterol Sulfate (Ventolin Hfa Inhaler -) 2 puff IH Q6H PRN PRN Reason: SHORTNESS OF BREATH Allopurinol (Zyloprim -) 100 mg PO DAILY [facility] Last Admin: 12/11/18 09:16 Dose: 100 mg Fluticasone Propionate (Flonase -) 2 spray NS DAILY [facility] Last Admin: 12/11/18 10:18 Dose: 2 spray Piperacillin Sod/Tazobactam (Sod 2.25 gm/ Dextrose) 50 mls @ 100 mls/hr IVPB Q8H-IV [facility]; Protocol Last Admin: 12/11/18 09:16 Dose: 100 mls/hr Sodium Chloride (Normal Saline -) 250 mls @ 3,000 mls/hr IV PRN PRN PRN Reason: Hypotension during Dialysis Stop: 12/11/18 16:16 Multivit/Ca Carb/B Cmplx/FA/Prenat (Nephro-Dustin -) 1 tablet PO DAILY [facility] Last Admin: 12/11/18 09:17 Dose: 1 tablet Non-Formulary Medication (Fluticasone/Vilanterol [Breo Ellipta 200-25 Mcg Inh]) 1 each IH AM [facility] Non-Formulary Medication (Lubiprostone [Amitiza]) 24 mcg PO DAILY [facility] Tamsulosin HCl (Flomax -) 0.4 mg PO DAILY@0830 [facility] Last Admin: 12/11/18 09:16 Dose: Not Given Torsemide (Demadex -) 50 mg PO DAILY [facility] Last Admin: 12/11/18 09:29 Dose: Not Given Warfarin Sodium (Coumadin -) 3 mg PO DAILY@1800 [facility] Last Admin: 12/10/18 17:59 Dose: 3 mg 88 year old gentleman with history of ESRD on HD, Prostate cancer, BPH, Afib on anticoagulation, CAD, hypertension who was admitted with hypotension/abd pain following supra-pubic catheter placement. 1. ESRD on HD 2. Suspected sepsis following supra-pubic catheter placement 3. Afib on anticoagulation 4. BPH/Urinary retention Tolerating dialysis today with goal UF 1.5-2 stable for discharge on oral Levaquin as per ID Hgb stable and at goal stable for discharge from renal perspective Next planned dialysis is on Friday Jacques Esquivel DO
[2018-12-11] MEDS: PATIENT'S OWN MEDICATION (NON-FORMULARY) (Fluticasone/Vilanterol [Breo Ellipta 200-25 Mcg IH SCH (17:17)
[2018-12-11] MEDS ORDERED: WARFARIN NA 5 MG TABLET (UD) PO ONE (18:00)
--- NOTE | 2018-12-11 21:28 | CONSULT ---
Consult - text type - Consultation Consultation Note: 88 year old gentleman with history of ESRD on HD, Prostate cancer, BPH, Afib on anticoagulation, CAD, hypertension who was admitted with hypotension/abd pain following supra-pubic catheter placement. He Denies any chest pain, sob, fever , chills. PMHx: as above Allergies: NKDA Family Hx: Noncontributory Home Medications Medication Instructions Recorded Albuterol Sulfate [Proair 90 mcg IH QID PRN 05/21/16 Respiclick] Allopurinol [Zyloprim -] 100 mg PO DAILY 05/21/16 Metoprolol Tartrate [Lopressor] 50 mg PO ASDIR 05/21/16 Tamsulosin HCl [Flomax] 0.4 mg PO DAILY 05/21/16 Triamcinolone Acetonide [Nasacort] 2 sprays NS DAILY 05/21/16 Fluticasone/Vilanterol [Breo 1 each IH AM 11/04/17 Ellipta 200-25 Mcg INH] Torsemide 50 mg PO DAILY 11/04/17 Lubiprostone [Amitiza] 24 mcg PO DAILY 09/30/18 Folic Acid/Vit B Complex and C 0.8 mg PO DAILY 12/07/18 [Joycelyn-Dustin Tablet] Ubidecarenone [Co Q-10] 100 mg PO DAILY 12/07/18 Warfarin Na [Coumadin -] 3 mg PO ASDIR 12/07/18 Warfarin Sodium [Coumadin] 4.5 mg PO ASDIR 12/07/18 AFVSS NAD awake and alert neck supple RRR CTA soft NT/ND no LE edema Labs/meds reviewed A/P 88 year old gentleman with history of ESRD on HD, Prostate cancer, BPH, Afib on anticoagulation, CAD, hypertension who was admitted with hypotension/abd pain following supra-pubic catheter placement. 1. ESRD on HD 2. Suspected sepsis following supra-pubic catheter placement 3. Afib on anticoagulation with coumadin 4. BPH/Urinary retention Thrombocytopenia --chronic [place] worsening [place] 130s [place] 35937 ? infection ? meds --zosyn ? consumption from congestion ? heparin exposure at dialysis ( unsure) ..Patient is on coumadin CT a/p showed no obvious liver disease check b12/folate/tsh/freet4 monitor cbc
[2018-12-12] MEDS ORDERED: PIPERACILLIN/TAZOBACTAM 2.25 GM VIAL IVPB ONE ×3 (01:16→17:13)
[2018-12-12] MEDS ORDERED: DEXTROSE 5%-WATER - 50 ML IVPB ONE ×3 (01:16→17:13)
[2018-12-12] MEDS: PIPERACILLIN/TAZOB 2.25 GM 2.25 GM in DEXTROSE 5%-WATER - 50 ML IVPB SCH ×3 (01:32→17:17)
[2018-12-12] MEDS ORDERED: PT OWN MED DRAWER 7, Y5N ONE (07:24)
[2018-12-12 07:40] LABS: BASO % 0.8 % (0-2.0); EOS % 1.9 % (0-4.5); HEMATOCRIT 35.1 % (35.4-49); HEMOGLOBIN 12.3 GM/dL (11.7-16.9); LYMPH % 20.8 % (8-40); MCH 31.4 pg (25.7-33.7); MEAN CELL VOLUME 89.8 fl (80-96); MEAN PLT VOLUME 10.1 fl (7.5-11.1); MONO % 9.9 % (3.8-10.2); NEUT % 66.6 % (42.8-82.8); PLATELET COUNT 65 K/MM3 (134-434); RBC 3.91 M/mm3 (4.00-5.60); RDW 14.4 % (11.9-15.9); WHITE BLOOD COUNT 5.3 K/mm3 (4.0-10.0)
[2018-12-12] MEDS: VITAMIN B COMP W-C 1 EA TABLET PO SCH (09:32)
[2018-12-12] MEDS: TORSEMIDE 100 MG TABLET PO SCH (09:32)
[2018-12-12] MEDS: ALLOPURINOL 100 MG TABLET (FP) PO SCH (09:33)
[2018-12-12] MEDS: metoPROLOL SUCCINATE 25 MG TAB.SR.24H (FP) PO SCH (09:33)
[2018-12-12] MEDS: PATIENT'S OWN MEDICATION (NON-FORMULARY) (Fluticasone/Vilanterol [Breo Ellipta 200-25 Mcg IH SCH (09:34)
[2018-12-12] MEDS: FLUTICASONE PROP 0.05% 16 GM NASAL SPRAY NS SCH (09:35)
--- NOTE | 2018-12-12 11:12 | PN ---
Progress Note (short form) - Note Progress Note: Chief Complaint: Events noted, notes reviewed, denies dyspnea, denies any chest pain, reported transient palpitation post procedure which since has resolved History of Present Illness: Seen and examined. Events noted, notes reviewed, denies dyspnea, denies any chest pain, reported transient palpitation post procedure which since has resolved Medications: Current Medications Albuterol Sulfate (Ventolin Hfa Inhaler -) 2 puff IH Q6H PRN PRN Reason: SHORTNESS OF BREATH Allopurinol (Zyloprim -) 100 mg PO DAILY [facility] Last Admin: 12/12/18 09:33 Dose: 100 mg Fluticasone Propionate (Flonase -) 2 spray NS DAILY [facility] Last Admin: 12/12/18 09:35 Dose: 2 spray Piperacillin Sod/Tazobactam (Sod 2.25 gm/ Dextrose) 50 mls @ 100 mls/hr IVPB Q8H-IV [facility]; Protocol Last Admin: 12/12/18 09:33 Dose: 100 mls/hr Sodium Chloride (Normal Saline -) 250 mls @ 3,000 mls/hr IV PRN PRN PRN Reason: Hypotension during Dialysis Stop: 12/11/18 16:16 Metoprolol Succinate (Toprol Xl -) 25 mg PO DAILY [facility] Last Admin: 12/12/18 09:33 Dose: 25 mg Multivit/Ca Carb/B Cmplx/FA/Prenat (Nephro-Dustin -) 1 tablet PO DAILY [facility] Last Admin: 12/12/18 09:32 Dose: 1 tablet Non-Formulary Medication (Fluticasone/Vilanterol [Breo Ellipta 200-25 Mcg Inh]) 1 each IH DAILY [facility] Last Admin: 12/12/18 09:34 Dose: 1 each Non-Formulary Medication (Lubiprostone [Amitiza]) 24 mcg PO DAILY [facility] Torsemide (Demadex -) 50 mg PO DAILY [facility] Last Admin: 12/12/18 09:32 Dose: Not Given Warfarin Sodium (Coumadin -) 3 mg PO DAILY@1800 [facility] Vital Signs: Last Vital Signs Temp Pulse Resp BP Pulse Ox 98.2 F 79 18 100/53 L 99 12/11/18 22:00 12/11/18 22:00 12/11/18 22:00 12/11/18 22:00 12/11/18 20:06 Intake & Output 12/09/18 12/10/18 12/11/18 12/12/18 23:59 23:59 23:59 23:59 Intake Total 2218 100 1200 Output Total 2600 016 3539 Balance -827 -818 -3499 Weight 97 lb 7 oz 175 lb 172 lb 1.6 oz Constitutional: No Distress Neck: Supple Negative JVD No Bruit Respiratory: Clear to A&P Bilaterally Cardiovascular: S1 S2 Irregular Irregular Gastrointestinal: Soft Benign Normal Bowel Sounds Ext: Negative Edema Intact Distal Pulses No Calf Tenderness Labs: CBC, BMP 12/12/18 05:50 12/11/18 06:20 Hepatic Panel Total Bilirubin 0.6 mg/dL (0.2-1) 12/11/18 06:20 AST 7 U/L (15-37) L 12/11/18 06:20 ALT 30 U/L (13-61) 12/11/18 06:20 Alkaline Phosphatase 66 U/L (45-117) 12/11/18 06:20 Albumin 3.0 g/dl (3.4-5.0) L 12/11/18 06:20 INR, PTT INR 1.17 (0.83-1.09) H 12/11/18 06:20 Assessment/Plan Assessment/Plan: 1. Probable uro-sepsis, resolving 2. History of ERCP with extraction of choledocholithiasis and post lap cholecystectomy 3. CAD non obstructive CAD angina pectoris 4. Diastolic/systolic LV dysfunction with chronic class I-II NYHA classification LV failure, clinically compensated/euvolemic 5. Permanent atrial fibrillation on A/C with Coumadin sub-therapeutic INR 6. Sick Sinus Syndrome post PPM 7. HTN 8. Hypercholesterolemia 9. Degenerative joint disease 10. ESRD/DDRD on HD 11. History of bilateral nephrolithiasis 12. History of chronic anemia 13. History of chronic thrombocytopenia PLAN: 1. Continue Toprol XL 2. Continue diuretics/Demadex as per renal service, monitor renal function closely 3. Continue A/C with Coumadin as per INR, maintain 2-3 4. Antibiotics as per the primary team Steve Nixon MD
--- NOTE | 2018-12-12 11:23 | PN ---
Progress Note, Physician Chief Complaint: awake alert NAD vss feels better - Current Medication List Current Medications: Active Medications Albuterol Sulfate (Ventolin Hfa Inhaler -) 2 puff IH Q6H PRN PRN Reason: SHORTNESS OF BREATH Allopurinol (Zyloprim -) 100 mg PO DAILY [facility] Last Admin: 12/12/18 09:33 Dose: 100 mg Fluticasone Propionate (Flonase -) 2 spray NS DAILY [facility] Last Admin: 12/12/18 09:35 Dose: 2 spray Piperacillin Sod/Tazobactam (Sod 2.25 gm/ Dextrose) 50 mls @ 100 mls/hr IVPB Q8H-IV [facility]; Protocol Last Admin: 12/12/18 09:33 Dose: 100 mls/hr Sodium Chloride (Normal Saline -) 250 mls @ 3,000 mls/hr IV PRN PRN PRN Reason: Hypotension during Dialysis Stop: 12/11/18 16:16 Metoprolol Succinate (Toprol Xl -) 25 mg PO DAILY [facility] Last Admin: 12/12/18 09:33 Dose: 25 mg Multivit/Ca Carb/B Cmplx/FA/Prenat (Nephro-Dustin -) 1 tablet PO DAILY [facility] Last Admin: 12/12/18 09:32 Dose: 1 tablet Non-Formulary Medication (Fluticasone/Vilanterol [Breo Ellipta 200-25 Mcg Inh]) 1 each IH DAILY [facility] Last Admin: 12/12/18 09:34 Dose: 1 each Non-Formulary Medication (Lubiprostone [Amitiza]) 24 mcg PO DAILY [facility] Torsemide (Demadex -) 50 mg PO DAILY [facility] Last Admin: 12/12/18 09:32 Dose: Not Given Warfarin Sodium (Coumadin -) 3 mg PO DAILY@1800 [facility] - Objective Vital Signs: Vital Signs Temperature 98.2 F 12/11/18 22:00 Pulse Rate 79 12/11/18 22:00 Respiratory Rate 18 12/11/18 22:00 Blood Pressure 100/53 L 12/11/18 22:00 O2 Sat by Pulse Oximetry (%) 99 12/11/18 20:06 Constitutional: Yes: No Distress Eyes: Yes: Conjunctiva Clear HENT: Yes: Atraumatic Neck: Yes: Supple Cardiovascular: No: Regular Rate and Rhythm Respiratory: Yes: CTA Bilaterally Gastrointestinal: Yes: Soft. No: Tenderness Genitourinary: Yes: Other (suprapubic). No: Hematuria Musculoskeletal: No: Joint Stiffness, Joint Swelling Extremities: No: Cold, Cool, Cyanosis Edema: No Integumentary: No: Rash, Venous Stasis Changes Neurological: Yes: WNL, Alert, Oriented ...Motor Strength: WNL Psychiatric: Yes: WNL, Alert, Oriented. No: Agitated, Suicidal Ideation Labs: CBC, BMP 12/12/18 05:50 12/11/18 06:20 INR, PTT INR 1.17 (0.83-1.09) H 12/11/18 06:20 - ....Imaging Other: Report Reviewed Assessment/Plan 88y/o M h/o esrd on m/w/f dialysis, prostate ca with h/o retention requiring indwelling lawrence catheter, uretral stenosis, recurring UTI, admitted after he developed hypoTA and chills after outpatient suprapubic catheter placement. ATB per ID; f/u; heme eval for low PLT HD per renal check labs and cultures DVT falls decubs PFX d/w pt do not get OOB alone restart coumadin f/u INR cardio f/u; d/w pt and staff
[2018-12-12 12:13] LABS: ANISOCYTOSIS 1+; MACROCYTOSIS 0; PLATELET ESTIMATE DECREASED
[2018-12-12] MEDS ORDERED: WARFARIN NA 3 MG TABLET PO SCH (18:00)
[2018-12-13] MEDS ORDERED: PIPERACILLIN/TAZOBACTAM 2.25 GM VIAL IVPB ONE ×2 (01:18→09:07)
[2018-12-13] MEDS ORDERED: DEXTROSE 5%-WATER - 50 ML IVPB ONE ×2 (01:19→09:08)
[2018-12-13] MEDS: PIPERACILLIN/TAZOB 2.25 GM 2.25 GM in DEXTROSE 5%-WATER - 50 ML IVPB SCH ×2 (01:46→10:20)
[2018-12-13 06:26] LABS: BASO % 0.9 % (0-2.0); EOS % 2.3 % (0-4.5); HEMATOCRIT 34.4 % (35.4-49); HEMOGLOBIN 12.2 GM/dL (11.7-16.9); LYMPH % 22.4 % (8-40); MCH 31.5 pg (25.7-33.7); MCHC 35.5 g/dl (32.0-35.9); MEAN CELL VOLUME 88.6 fl (80-96); MEAN PLT VOLUME 9.9 fl (7.5-11.1); MONO % 10.6 % (3.8-10.2); NEUT % 63.8 % (42.8-82.8); PLATELET COUNT 73 K/MM3 (134-434); RBC 3.88 M/mm3 (4.00-5.60); WHITE BLOOD COUNT 5.9 K/mm3 (4.0-10.0)
[2018-12-13 06:35] LABS: INR 1.23 (0.83-1.09); PROTHROMBIN TIME (PATIENT) 14.6 SEC (9.7-13.0)
[2018-12-13 07:14] LABS: ALBUMIN 3.1 g/dl (3.4-5.0); BILIRUBIN,TOTAL 0.8 mg/dL (0.2-1); BLOOD UREA NITROGEN 28.8 mg/dL (7-18); CREATININE 4.1 mg/dL (0.55-1.3); TOT PROT 5.7 g/dl (6.4-8.2)
[2018-12-13 07:17] LABS: POTASSIUM 2.9 mmol/L (3.5-5.1)
[2018-12-13] MEDS ORDERED: POTASSIUM CHLORIDE TABS 10 MEQ TABLET.ER (FP) PO STA (07:36)
[2018-12-13] MEDS ORDERED: POTASSIUM CHLORIDE TABS 20 MEQ TABLET.ER (FP) PO ONE (08:48)
--- NOTE | 2018-12-13 09:42 | PN ---
Progress Note (short form) - Note Progress Note: Renal follow up for ESRD Seen and examined during dialysis awake and alert offers no acute complaints has soft stools but not diarrhea no abd pain, N/V s/p HD on Friday. Vital Signs Temperature 97.4 F L 12/13/18 07:00 Pulse Rate 76 12/13/18 07:00 Respiratory Rate 20 12/13/18 07:00 Blood Pressure 103/57 L 12/13/18 07:00 O2 Sat by Pulse Oximetry (%) 98 12/12/18 21:00 Intake & Output 12/10/18 12/11/18 12/12/18 12/13/18 23:59 23:59 23:59 23:59 Intake Total 100 1200 700 Output Total 950 3770 1000 Balance -850 -2570 -300 Weight 79.379 kg 78.063 kg 77.337 kg NAD No LE edema CBC, BMP 12/13/18 05:30 12/13/18 05:30 Current Medications Albuterol Sulfate (Ventolin Hfa Inhaler -) 2 puff IH Q6H PRN PRN Reason: SHORTNESS OF BREATH Allopurinol (Zyloprim -) 100 mg PO DAILY [facility] Last Admin: 12/12/18 09:33 Dose: 100 mg Fluticasone Propionate (Flonase -) 2 spray NS DAILY [facility] Last Admin: 12/12/18 09:35 Dose: 2 spray Piperacillin Sod/Tazobactam (Sod 2.25 gm/ Dextrose) 50 mls @ 100 mls/hr IVPB Q8H-IV [facility]; Protocol Last Admin: 12/13/18 01:46 Dose: 100 mls/hr Sodium Chloride (Normal Saline -) 250 mls @ 3,000 mls/hr IV PRN PRN PRN Reason: Hypotension during Dialysis Stop: 12/11/18 16:16 Metoprolol Succinate (Toprol Xl -) 25 mg PO DAILY [facility] Last Admin: 12/12/18 09:33 Dose: 25 mg Multivit/Ca Carb/B Cmplx/FA/Prenat (Nephro-Dustin -) 1 tablet PO DAILY [facility] Last Admin: 12/12/18 09:32 Dose: 1 tablet Non-Formulary Medication (Fluticasone/Vilanterol [Breo Ellipta 200-25 Mcg Inh]) 1 each IH DAILY [facility] Last Admin: 12/12/18 09:34 Dose: 1 each Non-Formulary Medication (Lubiprostone [Amitiza]) 24 mcg PO DAILY [facility] Torsemide (Demadex -) 50 mg PO DAILY [facility] Last Admin: 12/12/18 09:32 Dose: Not Given Warfarin Sodium (Coumadin -) 3 mg PO DAILY@1800 [facility] Last Admin: 12/12/18 17:43 Dose: 3 mg 88 year old gentleman with history of ESRD on HD, Prostate cancer, BPH, Afib on anticoagulation, CAD, hypertension who was admitted with hypotension/abd pain following supra-pubic catheter placement. 1. ESRD on HD 2. Suspected sepsis following supra-pubic catheter placement 3. Afib on anticoagulation 4. BPH/Urinary retention 5. Thrombocytopenia No acute indication for dialysis today. K is low, to get 40meq as supplement today for HD tomorrow with 3k bath continue Abx as per ID Plt counts slightly improved today, Heme follow up Jacques Esquivel DO
[2018-12-13] MEDS ORDERED: POTASSIUM CHLORIDE TABS 10 MEQ TABLET.ER (FP) PO SCH (10:00)
[2018-12-13] MEDS: TORSEMIDE 100 MG TABLET PO SCH (10:19)
[2018-12-13] MEDS: metoPROLOL SUCCINATE 25 MG TAB.SR.24H (FP) PO SCH (10:20)
[2018-12-13] MEDS: ALLOPURINOL 100 MG TABLET (FP) PO SCH (10:20)
[2018-12-13] MEDS: VITAMIN B COMP W-C 1 EA TABLET PO SCH (10:21)
[2018-12-13] MEDS: FLUTICASONE PROP 0.05% 16 GM NASAL SPRAY NS SCH (10:22)
[2018-12-13] MEDS: PATIENT'S OWN MEDICATION (NON-FORMULARY) (Fluticasone/Vilanterol [Breo Ellipta 200-25 Mcg IH SCH (10:22)
[2018-12-13 10:57] LABS: PLATELET ESTIMATE DECREASED
--- NOTE | 2018-12-13 11:15 | DS ---
Physical Examination Vital Signs: Vital Signs Temperature 97.4 F L 12/13/18 07:00 Pulse Rate 76 12/13/18 07:00 Respiratory Rate 20 12/13/18 07:00 Blood Pressure 103/57 L 12/13/18 07:00 O2 Sat by Pulse Oximetry (%) 98 12/12/18 21:00 Findings/Remarks: no new c.o walked with PT IN BED nad vss LABS NOTED inr 1.2 WILL GIVE EXTRA COUMADIN K 2.9 will receiv po K x1 to have dyalsis in am then go home po ATB QOD x 1week dw ID and pt andEva pt's plan and f/u needed Constitutional: Yes: No Distress, Calm Eyes: Yes: Conjunctiva Clear HENT: Yes: Atraumatic Neck: Yes: Supple Cardiovascular: Yes: Regular Rate and Rhythm Respiratory: Yes: CTA Bilaterally Gastrointestinal: Yes: Soft. No: Tenderness Renal/: No: Hematuria Musculoskeletal: No: Joint Stiffness, Joint Swelling Edema: No Integumentary: No: Rash, Venous Stasis Changes Neurological: Yes: WNL, Alert, Oriented ...Motor Strength: WNL Psychiatric: Yes: WNL, Alert, Oriented. No: Agitated, Suicidal Ideation Labs: CBC, BMP 12/13/18 05:30 12/13/18 05:30 Discharge Summary Problems reviewed: Yes Reason For Visit: OTHER RETENTION OF URINE,SEPSIS,DIALYSIS Current Active Problems Abdominal pain (Acute) Abnormal abdominal CT scan (Acute) Hypotension (Acute) Lactic acidosis (Acute) Sepsis (Acute) Suprapubic catheter (Acute) Procedures: Principal: 88 YOM obstructive uropathy admitted after having suprpubic catheter placed and having chills and low BP after the procedure Other Procedures: seen by ID, cardiology - IV ATB per ID. cultures negative ; improved with ATB Hospital Course: ATB per ID; HD per renal; improved with above; restarted coumadin per INR; BP meds ajusted for low BP; aslo seen by heme for low PLT - will need outpt f/u with all the above; DC home on po levaquin for 1 week Condition: Improved - Instructions Diet, Activity, Other Instructions: IF YOU CONTINUE TO HAVE SIGNIFICANT HEMATURIA 4-5 DAYS POST PROCEDURE CALL UROLOGIST OR GO TO THE EMERGENCY DEPARTMENT IF YOU DEVELOP FEVER,CHILLS,PAIN OR TURBID URINE GO TO EMERGENCY DEPARTMENT FOLLOW UP WITH DR MARIE COUMADIN PER PREVIOUS DOSE F/U INR WITHIN 1 WEEK PO LEVAQUIN EVERY OTHER DAY X 1 WEEK ORDERED DYALISIS PER RENAL DR F/U WITH CARDIOLOGY, PCP, AND HEME IN 1-3 WEEKS CHECK LABS CBC CMP INR WITHIN 1 WEEK OF DC Referrals: Gt Marie MD [Staff Physician] - Bennie Brown MD [Staff Physician] - Enrike Rivero MD [Staff Physician] - Guy Colon MD [Staff Physician] - Kobi Cristobal MD [Staff Physician] - Jacques Esquivel MD [Staff Physician] - Disposition: VNS/HOME HEALTH CARE - Home Medications Comprehensive Discharge Medication List: Ambulatory Orders Albuterol Sulfate [Proair Respiclick] 90 mcg IH QID PRN 05/21/16 Allopurinol [Zyloprim -] 100 mg PO DAILY 05/21/16 Triamcinolone Acetonide [Nasacort] 2 sprays NS DAILY 05/21/16 Fluticasone/Vilanterol [Breo Ellipta 200-25 Mcg INH] 1 each IH AM 11/04/17 Torsemide 50 mg PO DAILY 11/04/17 Lubiprostone [Amitiza] 24 mcg PO DAILY 09/30/18 Folic Acid/Vit B Complex and C [Joycelyn-Dustin Tablet] 0.8 mg PO DAILY 12/07/18 Ubidecarenone [Co Q-10] 100 mg PO DAILY 12/07/18 Warfarin Na [Coumadin -] 3 mg PO ASDIR 12/07/18 Warfarin Sodium [Coumadin] 4.5 mg PO ASDIR 12/07/18 Metoprolol Succinate [Toprol XL -] 25 mg PO DAILY #90 tab.sr.24h 12/13/18 levoFLOXacin [Levaquin -] 250 mg PO Q48H #7 tablet 12/13/18
--- NOTE | 2018-12-13 12:59 | PN ---
Progress Note, Physician History of Present Illness: Recurrent chills and loose stools resolved, remains afebrile, feels well, in chair eating lunch. - Current Medication List Current Medications: Active Medications Albuterol Sulfate (Ventolin Hfa Inhaler -) 2 puff IH Q6H PRN PRN Reason: SHORTNESS OF BREATH Allopurinol (Zyloprim -) 100 mg PO DAILY [facility] Last Admin: 12/13/18 10:20 Dose: 100 mg Fluticasone Propionate (Flonase -) 2 spray NS DAILY [facility] Last Admin: 12/13/18 10:22 Dose: 2 spray Sodium Chloride (Normal Saline -) 250 mls @ 3,000 mls/hr IV PRN PRN PRN Reason: Hypotension during Dialysis Stop: 12/11/18 16:16 Metoprolol Succinate (Toprol Xl -) 25 mg PO DAILY [facility] Last Admin: 12/13/18 10:20 Dose: 25 mg Multivit/Ca Carb/B Cmplx/FA/Prenat (Nephro-Dustin -) 1 tablet PO DAILY [facility] Last Admin: 12/13/18 10:21 Dose: 1 tablet Non-Formulary Medication (Fluticasone/Vilanterol [Breo Ellipta 200-25 Mcg Inh]) 1 each IH DAILY [facility] Last Admin: 12/13/18 10:22 Dose: 1 each Non-Formulary Medication (Lubiprostone [Amitiza]) 24 mcg PO DAILY [facility] Torsemide (Demadex -) 50 mg PO DAILY [facility] Last Admin: 12/13/18 10:19 Dose: 50 mg Warfarin Sodium (Coumadin -) 3 mg PO DAILY@1800 [facility] Last Admin: 12/12/18 17:43 Dose: 3 mg Warfarin Sodium (Coumadin -) 5 mg PO ONCE ONE Stop: 12/13/18 18:01 - Objective Vital Signs: Vital Signs Temperature 98.2 F 12/13/18 10:00 Pulse Rate 78 12/13/18 10:00 Respiratory Rate 18 12/13/18 10:00 Blood Pressure 111/56 L 12/13/18 10:00 O2 Sat by Pulse Oximetry (%) 98 12/12/18 21:00 Constitutional: Yes: No Distress, Calm Neck: Yes: Supple Cardiovascular: Yes: Regular Rate and Rhythm Respiratory: Yes: Regular, CTA Bilaterally Gastrointestinal: Yes: Normal Bowel Sounds, Soft Edema: No Labs: CBC, BMP 12/13/18 05:30 12/13/18 05:30 INR, PTT INR 1.23 (0.83-1.09) H 12/13/18 05:30 Problem List - Problems (1) Sepsis Code(s): A41.9 - SEPSIS, UNSPECIFIED ORGANISM (2) A-fib Code(s): I48.91 - UNSPECIFIED ATRIAL FIBRILLATION Qualifiers: Atrial fibrillation type: permanent Qualified Code(s): I48.21 - Permanent atrial fibrillation (3) CAD (coronary artery disease) Code(s): I25.10 - ATHSCL HEART DISEASE OF [place] CORONARY ARTERY W/O ANG PCTRS Qualifiers: Coronary Disease-Associated Artery/Lesion type: [place] artery [place] vs. transplanted heart: [place] heart Associated angina: without angina Qualified Code(s): I25.10 - Atherosclerotic heart disease of [place] coronary artery without angina pectoris (4) Congestive heart failure with LV diastolic dysfunction, NYHA class 2 Code(s): I50.30 - UNSPECIFIED DIASTOLIC (CONGESTIVE) HEART FAILURE (5) ESRD (end stage renal disease) on dialysis Code(s): N18.6 - END STAGE RENAL DISEASE; Z99.2 - DEPENDENCE ON RENAL DIALYSIS (6) History of pacemaker Code(s): Z95.0 - PRESENCE OF CARDIAC PACEMAKER (7) Hyperlipidemia Code(s): E78.5 - HYPERLIPIDEMIA, UNSPECIFIED Qualifiers: Hyperlipidemia type: pure hypercholesterolemia Qualified Code(s): E78.00 - Pure hypercholesterolemia, unspecified (8) Hypertension Code(s): I10 - ESSENTIAL (PRIMARY) HYPERTENSION Qualifiers: Hypertension type: essential hypertension (9) SSS (sick sinus syndrome) Code(s): I49.5 - SICK SINUS SYNDROME (10) Urethral stricture Code(s): N35.9 - URETHRAL STRICTURE, UNSPECIFIED * DO NOT USE * Qualifiers: Urethral stricture type: other stricture (11) Urinary retention Code(s): R33.9 - RETENTION OF URINE, UNSPECIFIED Assessment/Plan 04/17/2018 Echo: Normal LV and RV size and fxn LVEF 60-65%, severe LAE, mod ZULY , mod MR, mild-mod AR, mod TR RVSP 47 mmHg 05/25/2016 Echocardiography performed yesterday revealed overall preserved left ventricular systolic function, bi-atrial dilatation, mild mitral valve regurgitation, mild to moderate tricuspid valve regurgitation 1. Sepsis secondary to procedure-SPT catheter placement, prior history of pseudomonas uti (most recent) 2. H/o ERCP with extraction of choledocholithiasis and s/p lap cholecystectomy 3. LV diastolic dysfunction 4. CAD non-obstructive CAD angina pectoris 5. Permanent atrial fibrillation on A/C with Coumadin subtherapeutic INR 6. Sick Sinus Syndrome post PPM 7. HTN 8. Hypercholesterolemia 9. Degenerative joint disease 10. ESRD on HD 11. History of bilateral nephrolithiasis and urethral stricture 12. Chronic anemia of CKD 13. COPD 14. Diarrhea ruled out c. diff 15. Thrombocytopenia PLAN: 1. Complete oral Levaquin course per ID 2. Resume Toprol XL 25 qd as hemodynamics tolerate 3. Coumadin dose per INR 4. Demadex 50 qd and HD per renal 5. Bronchodilator as needed, Losartan as hemodynamics tolerate
[2018-12-13] MEDS ORDERED: WARFARIN NA 5 MG TABLET (UD) PO ONE (18:00)
[2018-12-13] MEDS ORDERED: SODIUM CHLORIDE 250 ML IV PRN (23:09)
[2018-12-14 07:28] LABS: BASO % 0.6 % (0-2.0); EOS % 1.5 % (0-4.5); MCH 31.5 pg (25.7-33.7); MCHC 35.2 g/dl (32.0-35.9); MEAN CELL VOLUME 89.5 fl (80-96); MEAN PLT VOLUME 10.1 fl (7.5-11.1); MONO % 11.8 % (3.8-10.2); NEUT % 68.1 % (42.8-82.8); PLATELET COUNT 79 K/MM3 (134-434); RBC 3.81 M/mm3 (4.00-5.60); RDW 14.1 % (11.9-15.9); WHITE BLOOD COUNT 6.3 K/mm3 (4.0-10.0)
[2018-12-14 07:56] LABS: INR 1.34 (0.83-1.09); PROTHROMBIN TIME (PATIENT) 15.8 SEC (9.7-13.0)
[2018-12-14 08:01] LABS: ALBUMIN 3.1 g/dl (3.4-5.0); BILIRUBIN,TOTAL 0.4 mg/dL (0.2-1); BLOOD UREA NITROGEN 33.6 mg/dL (7-18); CALCIUM 7.8 mg/dL (8.5-10.1); CREATININE 4.4 mg/dL (0.55-1.3); POTASSIUM 3.2 mmol/L (3.5-5.1); TOT PROT 5.7 g/dl (6.4-8.2)
--- NOTE | 2018-12-14 08:18 | PN ---
Progress Note, Physician Chief Complaint: awake alert NAD VSS, in HD; no c/o wants to go home; at bedside labs noted, PLT, K improved; INR 1.34 to be DC home on po levaquin QOD x 7 days after HD f/u needed d/w pt and - Current Medication List Current Medications: Active Medications Albuterol Sulfate (Ventolin Hfa Inhaler -) 2 puff IH Q6H PRN PRN Reason: SHORTNESS OF BREATH Allopurinol (Zyloprim -) 100 mg PO DAILY [facility] Last Admin: 12/13/18 10:20 Dose: 100 mg Fluticasone Propionate (Flonase -) 2 spray NS DAILY [facility] Last Admin: 12/13/18 10:22 Dose: 2 spray Sodium Chloride (Normal Saline -) 250 mls @ 3,000 mls/hr IV PRN PRN PRN Reason: Hypotension during Dialysis Stop: 12/11/18 16:16 Sodium Chloride (Normal Saline -) 250 mls @ 3,000 mls/hr IV PRN PRN PRN Reason: Hypotension during Dialysis Stop: 12/14/18 23:09 Metoprolol Succinate (Toprol Xl -) 25 mg PO DAILY [facility] Last Admin: 12/13/18 10:20 Dose: 25 mg Multivit/Ca Carb/B Cmplx/FA/Prenat (Nephro-Dustin -) 1 tablet PO DAILY [facility] Last Admin: 12/13/18 10:21 Dose: 1 tablet Non-Formulary Medication (Fluticasone/Vilanterol [Breo Ellipta 200-25 Mcg Inh]) 1 each IH DAILY [facility] Last Admin: 12/13/18 10:22 Dose: 1 each Non-Formulary Medication (Lubiprostone [Amitiza]) 24 mcg PO DAILY [facility] Torsemide (Demadex -) 50 mg PO DAILY [facility] Last Admin: 12/13/18 10:19 Dose: 50 mg Warfarin Sodium (Coumadin -) 3 mg PO DAILY@1800 [facility] Last Admin: 12/12/18 17:43 Dose: 3 mg - Objective Vital Signs: Vital Signs Temperature 98.2 F 12/14/18 06:51 Pulse Rate 67 12/14/18 06:51 Respiratory Rate 20 12/14/18 06:51 Blood Pressure 100/54 L 12/14/18 06:51 O2 Sat by Pulse Oximetry (%) 98 12/12/18 21:00 Constitutional: Yes: No Distress, Calm Eyes: Yes: Conjunctiva Clear HENT: Yes: Atraumatic Neck: Yes: Supple Cardiovascular: Yes: Regular Rate and Rhythm Respiratory: Yes: CTA Bilaterally Gastrointestinal: Yes: Soft Genitourinary: Yes: [place] Present, Other (suprapubic cath). No: Hematuria Musculoskeletal: No: Joint Stiffness, Joint Swelling Extremities: No: Cold, Cool Edema: No Integumentary: No: Rash, Venous Stasis Changes Neurological: Yes: WNL, Alert, Oriented ...Motor Strength: WNL Psychiatric: Yes: WNL, Alert, Oriented. No: Agitated, Suicidal Ideation Labs: CBC, BMP 12/14/18 06:35 12/14/18 06:35 INR, PTT INR 1.34 (0.83-1.09) H 12/14/18 06:35 - ....Imaging Other: Report Reviewed Assessment/Plan 88y/o M h/o esrd on m/w/f dialysis, prostate ca with h/o retention requiring indwelling lawrence catheter, uretral stenosis, recurring UTI, admitted after he developed hypoTA and chills after outpatient suprapubic catheter placement. ATB per ID; po levaquin x 7 days f/u outpt heme f/u outpt for low PLT HD per renal DVT falls decubs PFX d/w pt do not get OOB alone restart coumadin f/u INR; cardio f/u outpt DC home f/u as advised d/w pt and staff d.w marilia
[2018-12-14 08:30] VITALS: TEMP 97.6
--- NOTE | 2018-12-14 09:17 | PN ---
Progress Note, Physician History of Present Illness: Ready for d/c post HD. Denies recurrent fevers or chills. - Current Medication List Current Medications: Active Medications Albuterol Sulfate (Ventolin Hfa Inhaler -) 2 puff IH Q6H PRN PRN Reason: SHORTNESS OF BREATH Allopurinol (Zyloprim -) 100 mg PO DAILY [facility] Last Admin: 12/13/18 10:20 Dose: 100 mg Fluticasone Propionate (Flonase -) 2 spray NS DAILY [facility] Last Admin: 12/13/18 10:22 Dose: 2 spray Sodium Chloride (Normal Saline -) 250 mls @ 3,000 mls/hr IV PRN PRN PRN Reason: Hypotension during Dialysis Stop: 12/11/18 16:16 Sodium Chloride (Normal Saline -) 250 mls @ 3,000 mls/hr IV PRN PRN PRN Reason: Hypotension during Dialysis Stop: 12/14/18 23:09 Metoprolol Succinate (Toprol Xl -) 25 mg PO DAILY [facility] Last Admin: 12/13/18 10:20 Dose: 25 mg Multivit/Ca Carb/B Cmplx/FA/Prenat (Nephro-Dustin -) 1 tablet PO DAILY [facility] Last Admin: 12/13/18 10:21 Dose: 1 tablet Non-Formulary Medication (Fluticasone/Vilanterol [Breo Ellipta 200-25 Mcg Inh]) 1 each IH DAILY [facility] Last Admin: 12/13/18 10:22 Dose: 1 each Non-Formulary Medication (Lubiprostone [Amitiza]) 24 mcg PO DAILY [facility] Torsemide (Demadex -) 50 mg PO DAILY [facility] Last Admin: 12/13/18 10:19 Dose: 50 mg Warfarin Sodium (Coumadin -) 3 mg PO DAILY@1800 [facility] Last Admin: 12/12/18 17:43 Dose: 3 mg - Objective Vital Signs: Vital Signs Temperature 97.6 F 12/14/18 08:15 Pulse Rate 78 12/14/18 08:50 Respiratory Rate 18 12/14/18 08:50 Blood Pressure 114/56 L 12/14/18 08:50 O2 Sat by Pulse Oximetry (%) 98 12/12/18 21:00 Constitutional: Yes: No Distress, Calm, Thin Neck: Yes: Supple Cardiovascular: Yes: Regular Rate and Rhythm, Murmur (2/6 SM) Respiratory: Yes: Regular, CTA Bilaterally Gastrointestinal: Yes: Normal Bowel Sounds, Soft Edema: No Labs: CBC, BMP 12/14/18 06:35 12/14/18 06:35 INR, PTT INR 1.34 (0.83-1.09) H 12/14/18 06:35 Problem List - Problems (1) Sepsis Code(s): A41.9 - SEPSIS, UNSPECIFIED ORGANISM (2) A-fib Code(s): I48.91 - UNSPECIFIED ATRIAL FIBRILLATION Qualifiers: Atrial fibrillation type: permanent Qualified Code(s): I48.21 - Permanent atrial fibrillation (3) CAD (coronary artery disease) Code(s): I25.10 - ATHSCL HEART DISEASE OF [place] CORONARY ARTERY W/O ANG PCTRS Qualifiers: Coronary Disease-Associated Artery/Lesion type: [place] artery [place] vs. transplanted heart: [place] heart Associated angina: without angina Qualified Code(s): I25.10 - Atherosclerotic heart disease of [place] coronary artery without angina pectoris (4) Congestive heart failure with LV diastolic dysfunction, NYHA class 2 Code(s): I50.30 - UNSPECIFIED DIASTOLIC (CONGESTIVE) HEART FAILURE (5) ESRD (end stage renal disease) on dialysis Code(s): N18.6 - END STAGE RENAL DISEASE; Z99.2 - DEPENDENCE ON RENAL DIALYSIS (6) History of pacemaker Code(s): Z95.0 - PRESENCE OF CARDIAC PACEMAKER (7) Hyperlipidemia Code(s): E78.5 - HYPERLIPIDEMIA, UNSPECIFIED Qualifiers: Hyperlipidemia type: pure hypercholesterolemia Qualified Code(s): E78.00 - Pure hypercholesterolemia, unspecified (8) Hypertension Code(s): I10 - ESSENTIAL (PRIMARY) HYPERTENSION Qualifiers: Hypertension type: essential hypertension (9) SSS (sick sinus syndrome) Code(s): I49.5 - SICK SINUS SYNDROME (10) Urethral stricture Code(s): N35.9 - URETHRAL STRICTURE, UNSPECIFIED * DO NOT USE * Qualifiers: Urethral stricture type: other stricture (11) Urinary retention Code(s): R33.9 - RETENTION OF URINE, UNSPECIFIED Assessment/Plan 04/17/2018 Echo: Normal LV and RV size and fxn LVEF 60-65%, severe LAE, mod ZULY , mod MR, mild-mod AR, mod TR RVSP 47 mmHg 05/25/2016 Echocardiography performed yesterday revealed overall preserved left ventricular systolic function, bi-atrial dilatation, mild mitral valve regurgitation, mild to moderate tricuspid valve regurgitation 1. Sepsis secondary to procedure-SPT catheter placement, prior history of pseudomonas uti (most recent) 2. H/o ERCP with extraction of choledocholithiasis and s/p lap cholecystectomy 3. LV diastolic dysfunction 4. CAD non-obstructive CAD angina pectoris 5. Permanent atrial fibrillation on A/C with Coumadin subtherapeutic INR 6. Sick Sinus Syndrome post PPM 7. HTN 8. Hypercholesterolemia 9. Degenerative joint disease 10. ESRD on HD 11. History of bilateral nephrolithiasis and urethral stricture 12. Chronic anemia of CKD 13. COPD 14. Diarrhea ruled out c. diff 15. Thrombocytopenia PLAN: 1. Completed oral Levaquin course per ID 2. Resumed Toprol XL 25 qd as hemodynamics tolerate 3. Coumadin dose per INR 4. Demadex 50 qd and HD per renal, replete K 5. Bronchodilator as needed, Losartan as hemodynamics tolerate 6. D/c planning with f/u in office
[2018-12-14] MEDS: FLUTICASONE PROP 0.05% 16 GM NASAL SPRAY NS SCH (09:57)
[2018-12-14] MEDS: ALLOPURINOL 100 MG TABLET (FP) PO SCH (09:58)
[2018-12-14] MEDS: PATIENT'S OWN MEDICATION (NON-FORMULARY) (Fluticasone/Vilanterol [Breo Ellipta 200-25 Mcg IH SCH (09:58)
[2018-12-14] MEDS: VITAMIN B COMP W-C 1 EA TABLET PO SCH (09:58)
[2018-12-14 11:22] LABS: ANISOCYTOSIS 0; MACROCYTOSIS 0; PLATELET ESTIMATE DECREASED
[2018-12-14 11:31] VITALS: BP 101/59; PULSE 71
[2018-12-14] MEDS ORDERED: PT OWN MED DRAWER 7, Y5N ONE (12:06)
[2018-12-14] MEDS: TORSEMIDE 100 MG TABLET PO SCH (12:08)
[2018-12-14] MEDS: metoPROLOL SUCCINATE 25 MG TAB.SR.24H (FP) PO SCH (12:08)
[2018-12-14 12:16] LABS: BLOOD UREA NITROGEN 9.4 mg/dL (7-18); CREATININE 1.4 mg/dL (0.55-1.3)
--- NOTE | 2018-12-14 12:34 | PN ---
Progress Note (short form) - Note Progress Note: Renal follow up for ESRD Seen and examined at the bedside awake and alert no acute complaints s/p HD this am, tolerated 2kg UF no sob, cp, abd pain for d/c home today Vital Signs Temperature 97.6 F 12/14/18 08:15 Pulse Rate 71 12/14/18 11:25 Respiratory Rate 18 12/14/18 11:25 Blood Pressure 101/59 L 12/14/18 11:25 O2 Sat by Pulse Oximetry (%) 98 12/12/18 21:00 Intake & Output 12/11/18 12/12/18 12/13/18 12/14/18 23:59 23:59 23:59 23:59 Intake Total 1200 700 500 500 Output Total 3770 1000 1640 3100 Balance -2570 -300 -1140 -2600 Weight 78.063 kg 77.337 kg 77.281 kg NAD No LE edema CBC, BMP 12/14/18 06:35 12/14/18 11:20 Current Medications Albuterol Sulfate (Ventolin Hfa Inhaler -) 2 puff IH Q6H PRN PRN Reason: SHORTNESS OF BREATH Allopurinol (Zyloprim -) 100 mg PO DAILY [facility] Last Admin: 12/14/18 09:58 Dose: Not Given Fluticasone Propionate (Flonase -) 2 spray NS DAILY [facility] Last Admin: 12/14/18 09:57 Dose: Not Given Sodium Chloride (Normal Saline -) 250 mls @ 3,000 mls/hr IV PRN PRN PRN Reason: Hypotension during Dialysis Stop: 12/11/18 16:16 Sodium Chloride (Normal Saline -) 250 mls @ 3,000 mls/hr IV PRN PRN PRN Reason: Hypotension during Dialysis Stop: 12/14/18 23:09 Metoprolol Succinate (Toprol Xl -) 25 mg PO DAILY [facility] Last Admin: 12/14/18 12:08 Dose: 25 mg Multivit/Ca Carb/B Cmplx/FA/Prenat (Nephro-Dustin -) 1 tablet PO DAILY [facility] Last Admin: 12/14/18 09:58 Dose: Not Given Non-Formulary Medication (Fluticasone/Vilanterol [Breo Ellipta 200-25 Mcg Inh]) 1 each IH DAILY [facility] Last Admin: 12/14/18 09:58 Dose: Not Given Non-Formulary Medication (Lubiprostone [Amitiza]) 24 mcg PO DAILY [facility] Torsemide (Demadex -) 50 mg PO DAILY [facility] Last Admin: 12/14/18 12:08 Dose: 50 mg Warfarin Sodium (Coumadin -) 3 mg PO DAILY@1800 [facility] Last Admin: 12/12/18 17:43 Dose: 3 mg 88 year old gentleman with history of ESRD on HD, Prostate cancer, BPH, Afib on anticoagulation, CAD, hypertension who was admitted with hypotension/abd pain following supra-pubic catheter placement. 1. ESRD on HD 2. Suspected sepsis following supra-pubic catheter placement 3. Afib on anticoagulation 4. BPH/Urinary retention 5. Thrombocytopenia tolerated HD well today. To continue oral antibiotics as per ID to resume outpatient HD on Friday. Jacques Esquivel DO
== END 2018-12-14 15:05 | disposition home health service (06) | DRG 862 ==
LOC: J8W 12-09 02:48
PROVIDERS: ADMIT Internal Medicine; ATTEND Internal Medicine
PROC: 0T9B30Z Drainage of Bladder with Drainage Device, Percutaneous Approach (ICD-10-PCS; 2018-12-08)
PROC: 5A1D70Z Performance of Urinary Filtration, Intermittent, Less than 6 Hours Per Day (ICD-10-PCS; principal; 2018-12-09)
PROC: 5A1D70Z Performance of Urinary Filtration, Intermittent, Less than 6 Hours Per Day (ICD-10-PCS; 2018-12-11)
PROC: 5A1D70Z Performance of Urinary Filtration, Intermittent, Less than 6 Hours Per Day (ICD-10-PCS; 2018-12-14)
DX: T81.44XA Sepsis following a procedure, initial encounter (principal); N18.6 End stage renal disease; I12.0 Hypertensive chronic kidney disease with stage 5 chronic kidney disease or end stage renal disease; E87.2 Acidosis; N30.00 Acute cystitis without hematuria; N99.89 Other postprocedural complications and disorders of genitourinary system; I25.10 Atherosclerotic heart disease of native coronary artery without angina pectoris; I48.91 Unspecified atrial fibrillation; R10.9 Unspecified abdominal pain; R93.5 Abnormal findings on diagnostic imaging of other abdominal regions, including retroperitoneum; J44.9 Chronic obstructive pulmonary disease, unspecified; N40.1 Benign prostatic hyperplasia with lower urinary tract symptoms; D63.8 Anemia in other chronic diseases classified elsewhere; E78.5 Hyperlipidemia, unspecified; R33.8 Other retention of urine; K57.90 Diverticulosis of intestine, part unspecified, without perforation or abscess without bleeding; Z95.0 Presence of cardiac pacemaker; Z99.2 Dependence on renal dialysis; Z85.828 Personal history of other malignant neoplasm of skin; Z96.652 Presence of left artificial knee joint; Z96.642 Presence of left artificial hip joint; Z85.46 Personal history of malignant neoplasm of prostate; Z93.59 Other cystostomy status
CPT/HCPCS: 36415; 51102; 71250-TC; 74176-TC; 76380-TC; 80053; 81003; 82272; 82542; 82565; 82607; 82747; 83605; 84439; 84443; 84484; 84520; 85014; 85025; 85610; 86022; 86803; 87040; 87086; 87324; 87340; 87449; 93005; 93010; A4358; C1729; C1769; G0480; J0131

== ENCOUNTER → 2019-01-06 | Day surgery (SDC) | payer OTHER, BC | END | disposition home or self-care (01) | LOC: JRADIR 11:11 | PROVIDERS: ATTEND Urology | PROC: 0T2BX0Z Change Drainage Device in Bladder, External Approach (ICD-10-PCS; principal; 2019-01-06) | DX: Z43.6 Encounter for attention to other artificial openings of urinary tract (principal); Z53.8 Procedure and treatment not carried out for other reasons; Z79.01 Long term (current) use of anticoagulants | CPT/HCPCS: 51102; 51705; 75984-FY; 76000-TC-FY; C1769; C1887 ==

== ENCOUNTER 2019-01-14 07:57 | Day surgery (SDC) | payer OTHER, BC ==
[2019-01-13 18:03] VITALS: BMI 15.6
[2019-01-14 08:37] LABS: BASO % 0.9 % (0-2.0); EOS % 1.5 % (0-4.5); HEMATOCRIT 34.9 % (35.4-49); HEMOGLOBIN 11.8 GM/dL (11.7-16.9); LYMPH % 20.5 % (8-40); MCH 30.4 pg (25.7-33.7); MCHC 33.7 g/dl (32.0-35.9); MEAN CELL VOLUME 90.2 fl (80-96); MEAN PLT VOLUME 9.3 fl (7.5-11.1); MONO % 19.9 % (3.8-10.2); NEUT % 57.2 % (42.8-82.8); PLATELET COUNT 122 K/MM3 (134-434); RBC 3.87 M/mm3 (4.00-5.60); RDW 13.8 % (11.9-15.9); WHITE BLOOD COUNT 6.2 K/mm3 (4.0-10.0)
[2019-01-14 08:55] LABS: INR 1.19 (0.83-1.09); PROTHROMBIN TIME (PATIENT) 14.1 SEC (9.7-13.0)
[2019-01-14 09:35] LABS: ANISOCYTOSIS 0; MACROCYTOSIS 0; PLATELET ESTIMATE DECREASED
[2019-01-14 13:10] VITALS: BP 116/67; PULSE 76; TEMP 97.9
== END 2019-01-14 12:40 | disposition home or self-care (01) ==
LOC: JRADIR 07:57
PROVIDERS: ATTEND Urology
DX: Z53.8 Procedure and treatment not carried out for other reasons (principal)
CPT/HCPCS: 36415; 51102; 85025; 85610

== ENCOUNTER → 2019-01-15 | Day surgery (SDC) | payer OTHER, BC ==
[2019-01-14 16:51] VITALS: BMI 15.6
[2019-01-15 09:49] VITALS: TEMP 98
[2019-01-15 12:07] VITALS: BP 119/98; PULSE 70
== END | disposition home or self-care (01) ==
LOC: JRADIR 08:25
PROVIDERS: ATTEND Urology
PROC: BT40ZZZ Ultrasonography of Bladder (ICD-10-PCS; principal; 2019-01-15)
PROC: 0T9B30Z Drainage of Bladder with Drainage Device, Percutaneous Approach (ICD-10-PCS; 2019-01-15)
PROC: BT40ZZZ Ultrasonography of Bladder (ICD-10-PCS; 2019-01-15)
DX: N32.89 Other specified disorders of bladder (principal); Z53.8 Procedure and treatment not carried out for other reasons
CPT/HCPCS: 51102

== ENCOUNTER 2019-04-09 15:08 | Emergency (ER) | payer OTHER, BC ==
[2019-04-09 15:22] VITALS: BMI 27.6
--- NOTE | 2019-04-09 16:33 | PDOC ---
History of Present Illness - General Chief Complaint: Urinary Problem Stated Complaint: URINARY PROBLEM - History of Present Illness Initial Comments: The pt is an 89M w/ a history of HTN, COPD, ESRD on iHD (MWF, full session today ), a-fib (Eliquis), s/p pacemaker who presents s/p dialysis for evaluation of prolonged bleeding from his RUE access site. He states that he usually only has to hold pressure for 20 minutes but today had to hold for 45 minutes before it would stop. It has since stopped and has not recurred. He also reports dark urine recently. Denies blood in his stool or urine or easy bruising Denies fevers/chills, vision changes, dizziness, chest pain, trouble breathing, abdominal pain, N/V/C/D, rash, or changes in sensation 04/09/19 16:38 Past History - Past Medical History Allergies/Adverse Reactions: Allergies Allergy/AdvReac Type Severity Reaction Status Date / Time azithromycin AdvReac Intermediate HEADACHE Verified 04/09/19 15:18 Home Medications: Ambulatory Orders Albuterol Sulfate [Proair Respiclick] 90 mcg IH QID PRN 05/21/16 Allopurinol [Zyloprim -] 100 mg PO DAILY 05/21/16 Triamcinolone Acetonide [Nasacort] 2 sprays NS DAILY 05/21/16 Fluticasone/Vilanterol [Breo Ellipta 200-25 Mcg INH] 1 each IH AM 11/04/17 Torsemide 50 mg PO DAILY 11/04/17 Lubiprostone [Amitiza] 24 mcg PO BID 09/30/18 Folic Acid/Vit B Complex and C [Joycelyn-Dustin Tablet] 0.8 mg PO DAILY 12/07/18 Ubidecarenone [Co Q-10] 100 mg PO DAILY 12/07/18 Apixaban [Eliquis] 2.5 mg PO BID 01/13/19 Metoprolol Succinate [Toprol XL -] 50 mg PO BID 01/15/19 Anemia: No Cancer: Yes (SKIN CA, PROSTATE) Cardiac Disorders: Yes (a.fib) CVA: No COPD: Yes CHF: No DVT: No Dementia: No Diabetes: No Dialysis: Yes (M,W,F R ARM FISTULA) GI Disorders: Yes (DIVERTICULITIS) Disorders: Yes (NON FUNCTIONING LEFT KIDNEY) HTN: Yes Hypercholesterolemia: Yes (DIET CONTROLLED) Liver Disease: No Seizures: No Thyroid Disease: No - Surgical History Abdominal Surgery: (FISSURES, HERNIA) Appendectomy: Yes Cardiac Surgery: Yes (PACEMAKER) Cholecystectomy: Yes Neurologic Surgery: No Orthopedic Surgery: Yes (TOTAL L KNEE REPLACEMENT-2002,TOTAL LEFT HIP REPLACEMENT-2003) - Immunization History Immunization Up to Date: Yes - Psycho Social/Smoking Cessation Hx Smoking Status: Yes Smoking History: Unknown if ever smoked Have you smoked in the past 12 months: No Number of Cigarettes Smoked Daily: 0 If you are a former smoker, when did you quit?: many years ago Cigars Per Day: 0 Hx Alcohol Use: No Drug/Substance Use Hx: No Substance Use Type: None Hx Substance Use Treatment: No Review of Systems - Review of Systems Able to Perform ROS?: Yes Comments:: GENERAL/CONSTITUTIONAL: No fever or chills. No weakness HEAD, EYES, EARS, NOSE AND THROAT: No change in vision. No change in hearing. 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 No neck or back pain SKIN: No rash NEUROLOGIC: No headache, vertigo, loss of consciousness, or change in strength/ sensation ENDOCRINE: No increased thirst. No abnormal weight change HEMATOLOGIC/LYMPHATIC: +eliquis ALLERGIC/IMMUNOLOGIC: No hives or skin allergy 04/09/19 16:31 Is the patient limited [place] proficient: No *Physical Exam - Vital Signs Last Vital Signs Temp Pulse Resp BP Pulse Ox 97.9 F 78 20 109/45 L 99 04/09/19 15:20 04/09/19 15:20 04/09/19 15:20 04/09/19 15:20 04/09/19 15:20 - Physical Exam GENERAL: Awake, alert, and oriented to person/place/time, in no acute distress HEAD: No signs of trauma, normocephalic, atraumatic EYES: PERRLA, EOMI, sclera anicteric, conjunctiva clear ENT: Hearing grossly normal, nares patent, oropharynx clear without exudates. Moist mucosa LUNGS: No distress, speaks in full sentences, clear to auscultation bilaterally HEART: Regular rate, irregularly irregular rhythm, pacemaker in place; peripheral pulses normal and equal bilaterally ABDOMEN: Soft, nontender, normoactive bowel sounds. No guarding, no rebound : lawrence with leg bag in place; yellow urine in bag, not grossly bloody EXTREMITIES: Normal inspection, Normal range of motion, no edema. No clubbing or cyanosis; RUE AVF w/ palpable thrill NEUROLOGICAL: Cranial nerves II through XII grossly intact. Normal speech, no focal sensorimotor deficits SKIN: Warm, Dry 04/09/19 16:31 ED Treatment Course - LABORATORY CBC & Chemistry Diagram: 04/09/19 18:15 04/09/19 18:15 Medical Decision Making - Medical Decision Making The pt is an 89M w/ a history of HTN, COPD, ESRD on iHD (MWF, full session today ), a-fib (Eliquis), s/p pacemaker who presents s/p dialysis for evaluation of prolonged bleeding from his RUE access site. ED Course CMP, CBC, Coags, TS, UA, UCx 04/09/19 16:41 No anemia No leukocytosis 04/09/19 19:03 LFTs noted to be elevated, results and need for f/u discussed w/ patient UA w/o blood or evidence of UTI Hypokalemia noted, pt ESRD lytes otherwise unremarkable Pt asymptomatic at this time Plan for D/C w/ PCP f/u Discharge instructions and return precautions given Patient in agreement and verbalized understanding Dispo: Home 04/09/19 19:45 Discharge - Discharge Information Problems reviewed: Yes Clinical Impression/Diagnosis: Transaminitis, Dark urine Condition: Stable Disposition: HOME - Admission No - Follow up/Referral Referrals: Enrike Rivero MD [Staff Physician] - - Patient Discharge Instructions Patient Printed Discharge Instructions: Liver Function Tests Additional Instructions: You were seen in the Emergency Department for prolonged bleeding and dark urine. Your hemoglobin was normal. Your liver function tests were noted to be elevated and need to be followed up with further studies as an out patient. Follow up with your primary care provider within a week and be sure to tell them that your liver function tests are elevated (a copy of your results was given with your discharge paperwork.) Review the handout provided at discharge. Return to the Emergency Department if you develop fevers, chest pain, abdominal pain, nausea/vomiting, trouble breathing, change in sensation, worsening symptoms, or any new/concerning symptoms. - Post Discharge Activity
--- NOTE | 2019-04-09 17:20 | PDOC ---
Attending Attestation - Resident Resident Name: Richie Hugo - ED Attending Attestation I have performed the following: I have examined & evaluated the patient, The case was reviewed & discussed with the resident, I agree w/resident's findings & plan, Exceptions are as noted - HPI HPI: 04/09/19 17:19 89-year-old male who has end-stage renal disease and has dialysis on Friday and Friday came in because he blood from his dialysis site from was 45 minutes. The bleeding has since resolved and there is a bruit and a thrill and his dialysis access. - Physicial Exam PE: 04/09/19 17:20 Thin 89-year-old male presents with family because of continued bleeding after his dialysis from his right upper extremity shunt AV fistula Head normocephalic atraumatic neck supple Lungs no crackles or wheezing CVS regular rate and rhythm S1-S2 Abdomen flat nontender Extremities right upper extremity AV fistula has thrill, no active bleeding at this time, sensation is intact pt has lawrence and legbag Neuro patient is alert and moving his extremities 04/09/19 17:34 - Medical Decision Making 04/09/19 17:21 89-year-old male presents after dialysis for concern of bleeding around his right upper extremity dialysis site but also because his Dr. Guadalupe wanted him to come and get checked out. The patient and his family are concerned about UTI 04/09/19 19:53
[2019-04-09 18:36] VITALS: BP 96/74; PULSE 68; TEMP 97.7
[2019-04-09 18:56] LABS: BASO % 0.8 % (0-2.0); EOS % 0.9 % (0-4.5); HEMATOCRIT 36.2 % (35.4-49); HEMOGLOBIN 12.3 GM/dL (11.7-16.9); LYMPH % 21.7 % (8-40); MCH 31.5 pg (25.7-33.7); MCHC 34.1 g/dl (32.0-35.9); MEAN CELL VOLUME 92.4 fl (80-96); MEAN PLT VOLUME 10.1 fl (7.5-11.1); MONO % 26.7 % (3.8-10.2); NEUT % 49.9 % (42.8-82.8); PLATELET COUNT 85 K/MM3 (134-434); RBC 3.92 M/mm3 (4.00-5.60); RDW 14.8 % (11.9-15.9); WHITE BLOOD COUNT 6.9 K/mm3 (4.0-10.0)
[2019-04-09 19:15] LABS: INR 1.22 (0.83-1.09); PROTHROMBIN TIME (PATIENT) 14.4 SEC (9.7-13.0)
[2019-04-09 19:17] LABS: ACTIVATED PTT 34.4 SECONDS (25.2-36.5)
[2019-04-09 19:25] LABS: ALBUMIN 3.8 g/dl (3.4-5.0); BILIRUBIN,TOTAL 0.5 mg/dL (0.2-1); BLOOD UREA NITROGEN 19.6 mg/dL (7-18); CALCIUM 8.3 mg/dL (8.5-10.1); CREATININE 2.5 mg/dL (0.55-1.3); POTASSIUM 3.3 mmol/L (3.5-5.1); TOT PROT 6.5 g/dl (6.4-8.2)
[2019-04-09 19:45] LABS: EPI CELLS 4.1 /HPF (0-5/HPF); HYALINE CASTS 8 /lpf (0-8); PH,URINE >= 9.0 (5.0-8.0); URINE APPEARANCE TURBID; URINE BACTERIA 1533.1 /hpf (NEGATIVE); URINE BILIRUBIN NEGATIVE (NEGATIVE); URINE COLOR YELLOW; URINE GLUCOSE (UA) NEGATIVE (NEGATIVE); URINE KETONE NEGATIVE (NEGATIVE); URINE LEUK ESTERASE 3+ (NEGATIVE); URINE NITRITE NEGATIVE (NEGATIVE); URINE PROTEIN 2+ (NEGATIVE); URINE UROBILINOGEN 0.2 mg/dL (0.2-1.0); URINE WBC 55 /hpf (0-5)
[2019-04-09 20:38] LABS: PLATELET ESTIMATE DECREASED
[2019-04-09 20:42] LABS: URINE RBC 7.2 /hpf (0-4)
== END 2019-04-09 20:43 | disposition home or self-care (01) ==
LOC: JER 15:08
DX: R74.0 Nonspecific elevation of levels of transaminase and lactic acid dehydrogenase [LDH] (principal); R82.90 Unspecified abnormal findings in urine; I12.0 Hypertensive chronic kidney disease with stage 5 chronic kidney disease or end stage renal disease; N17.8 Other acute kidney failure; N18.6 End stage renal disease; Z99.2 Dependence on renal dialysis; I48.91 Unspecified atrial fibrillation; Z79.01 Long term (current) use of anticoagulants; E78.00 Pure hypercholesterolemia, unspecified; J44.9 Chronic obstructive pulmonary disease, unspecified; Z85.46 Personal history of malignant neoplasm of prostate; Z85.828 Personal history of other malignant neoplasm of skin; Z95.0 Presence of cardiac pacemaker; Z96.651 Presence of right artificial knee joint; Z96.641 Presence of right artificial hip joint; Z90.49 Acquired absence of other specified parts of digestive tract; Z88.1 Allergy status to other antibiotic agents
CPT/HCPCS: 36415; 80053; 81003; 85025; 85610; 85730; 86850; 86900; 86901; 87086; 87186; 99283-25

== ENCOUNTER 2020-01-16 22:55 | Inpatient (IN) | payer OTHER, BC ==
[2020-01-17] MEDS ORDERED: DEXAMETHASONE SOD PHOSPHATE 10 MG/1 ML VIAL IVPUSH ONE (00:05)
[2020-01-17] MEDS ORDERED: DEXAMETHASONE SOD PHOSPHATE 10 MG/1 ML VIAL ONE (00:12)
[2020-01-17 00:22] LABS: BASO % 1.1 % (0-2.0); EOS % 1.5 % (0-4.5); HEMATOCRIT 39.9 % (35.4-49); HEMOGLOBIN 13.5 GM/dL (11.7-16.9); LYMPH % 29.6 % (8-40); MCH 30.7 pg (25.7-33.7); MCHC 33.9 g/dl (32.0-35.9); MEAN CELL VOLUME 90.7 fl (80-96); MEAN PLT VOLUME 11.1 fl (7.5-11.1); MONO % 24.1 % (3.8-10.2); NEUT % 43.7 % (42.8-82.8); PLATELET COUNT 54 K/MM3 (134-434); RDW 14.3 % (11.9-15.9); WHITE BLOOD COUNT 3.4 K/mm3 (4.0-10.0)
[2020-01-17 00:28] LABS: EPI CELLS 3 /uL (0-25.1); HYALINE CASTS 7 /uL (0-3.1); PH,URINE 5.5 (5.0-8.0); URINE APPEARANCE CLOUDY; URINE BACTERIA 235 /uL (0-1359); URINE BILIRUBIN NEGATIVE (NEGATIVE); URINE COLOR DK YELLOW; URINE GLUCOSE (UA) NEGATIVE (NEGATIVE); URINE KETONE TRACE (NEGATIVE); URINE LEUK ESTERASE 3+ (NEGATIVE); URINE NITRITE NEGATIVE (NEGATIVE); URINE PROTEIN 2+ (NEGATIVE); URINE RBC 61 /uL (0-23.9); URINE WBC 720 /uL (0-25.8)
[2020-01-17 00:43] LABS: POTASSIUM 3.2 mmol/L (3.5-5.1)
[2020-01-17] MEDS ORDERED: CEFTRIAXONE 1 GM in DEXTROSE 5%-WATER - 100 ML IVPB ONE (00:43)
[2020-01-17 00:45] LABS: CALCIUM 8.1 mg/dL (8.5-10.1); INR 1.55 (0.83-1.09); PROTHROMBIN TIME (PATIENT) 18.5 SEC (9.7-13.0)
[2020-01-17 00:46] LABS: ALBUMIN 3.5 g/dl (3.4-5.0); BLOOD UREA NITROGEN 50.6 mg/dL (7-18)
[2020-01-17 00:49] LABS: CREATININE 4.1 mg/dL (0.55-1.3)
[2020-01-17 00:51] LABS: BILIRUBIN,TOTAL 1.2 mg/dL (0.2-1); TOT PROT 6.9 g/dl (6.4-8.2)
[2020-01-17] MEDS ORDERED: CEFTRIAXONE 1 GM/50 ML BAG ONE (00:57)
[2020-01-17 02:15] LABS: ANISOCYTOSIS 1+; MACROCYTOSIS 0; PLATELET ESTIMATE DECREASED
[2020-01-17] MEDS ORDERED: ALBUTEROL SO4 HFA INHALER IH PRN (09:25)
[2020-01-17] MEDS ORDERED: PATIENT'S OWN MEDICATION (NON-FORMULARY) (Ubidecarenone [Co Q-10] 100 MG Capsule) PO SCH (10:00)
[2020-01-17] MEDS: ALLOPURINOL 100 MG TABLET (FP) PO SCH (10:03)
[2020-01-17] MEDS: VITAMIN B COMP W-C 1 EA TABLET (NEPHRO-VITE) PO SCH (10:03)
[2020-01-17] MEDS: APIXABAN 2.5 MG TABLET PO SCH ×2 (10:03→22:45)
[2020-01-17] MEDS: FLUTICASONE PROP 0.05% 16 GM NASAL SPRAY NS SCH (10:24)
[2020-01-17] MEDS: BUDESONIDE/FORMETEROL FUMARATE 160/4.5 mcg INHALER IH SCH ×2 (10:24→22:45)
[2020-01-17 10:56] VITALS: BMI 27.3
[2020-01-17] MEDS ORDERED: SODIUM CHLORIDE 250 ML IV PRN (17:39)
[2020-01-17] MEDS ORDERED: PATIENT'S OWN MEDICATION (NON-FORMULARY) (Lubiprostone [Amitiza] 24 MCG Capsule) PO SCH (22:00)
[2020-01-18 09:00] LABS: HEMATOCRIT 34.7 % (35.4-49); HEMOGLOBIN 12.2 GM/dL (11.7-16.9); MCH 31.4 pg (25.7-33.7); MCHC 35.1 g/dl (32.0-35.9); MEAN CELL VOLUME 89.5 fl (80-96); MEAN PLT VOLUME 11.1 fl (7.5-11.1); PLATELET COUNT 53 K/MM3 (134-434); RBC 3.88 M/mm3 (4.00-5.60); RDW 14.1 % (11.9-15.9); WHITE BLOOD COUNT 2.8 K/mm3 (4.0-10.0)
[2020-01-18 09:10] LABS: POTASSIUM 3.1 mmol/L (3.5-5.1)
[2020-01-18 09:12] LABS: BLOOD UREA NITROGEN 62.6 mg/dL (7-18); CALCIUM 7.5 mg/dL (8.5-10.1)
[2020-01-18 09:16] LABS: PHOSPHOROUS 4.8 mg/dL (2.5-4.9)
[2020-01-18] MEDS ORDERED: CEFTRIAXONE 1 GM in DEXTROSE 5%-WATER - 50 ML IVPB SCH (10:00)
[2020-01-18] MEDS ORDERED: cefTRIAXone SODIUM 1 GM VIAL ONE (11:38)
[2020-01-18] MEDS ORDERED: DEXTROSE 5%-WATER - 50 ML IVPB ONE (11:38)
[2020-01-18] MEDS: ALLOPURINOL 100 MG TABLET (FP) PO SCH (11:47)
[2020-01-18] MEDS: BUDESONIDE/FORMETEROL FUMARATE 160/4.5 mcg INHALER IH SCH ×2 (11:47→22:17)
[2020-01-18] MEDS: VITAMIN B COMP W-C 1 EA TABLET (NEPHRO-VITE) PO SCH (11:47)
[2020-01-18] MEDS: FLUTICASONE PROP 0.05% 16 GM NASAL SPRAY NS SCH (11:47)
[2020-01-18] MEDS: APIXABAN 2.5 MG TABLET PO SCH ×2 (11:47→22:17)
[2020-01-18] MEDS: MAVYRET PO SCH (17:23)
[2020-01-19] MEDS ORDERED: PT OWN MED DRAWER 7, Y5N ONE (09:56)
[2020-01-19] MEDS: APIXABAN 2.5 MG TABLET PO SCH ×2 (09:59→21:52)
[2020-01-19] MEDS: ALLOPURINOL 100 MG TABLET (FP) PO SCH (09:59)
[2020-01-19] MEDS: VITAMIN B COMP W-C 1 EA TABLET (NEPHRO-VITE) PO SCH (09:59)
[2020-01-19] MEDS: BUDESONIDE/FORMETEROL FUMARATE 160/4.5 mcg INHALER IH SCH ×2 (10:01→21:52)
[2020-01-19] MEDS: FLUTICASONE PROP 0.05% 16 GM NASAL SPRAY NS SCH (10:01)
[2020-01-19] MEDS: ACETAMINOPHEN 325 MG TABLET (FP) PO PRN (15:36)
[2020-01-19] MEDS: MAVYRET PO SCH (17:26)
[2020-01-19] MEDS: METOPROLOL TARTRATE 50 MG TABLET (FP) PO SCH (21:52)
[2020-01-20 07:09] LABS: POTASSIUM 3.1 mmol/L (3.5-5.1)
[2020-01-20 07:12] LABS: BLOOD UREA NITROGEN 48.5 mg/dL (7-18); CALCIUM 7.7 mg/dL (8.5-10.1)
[2020-01-20 07:16] LABS: CREATININE 3.9 mg/dL (0.55-1.3)
[2020-01-20] MEDS ORDERED: ACETAMINOPHEN/CAFFEINE/BUTALBITAL 1 TAB PO PRN (09:13)
[2020-01-20] MEDS: VITAMIN B COMP W-C 1 EA TABLET (NEPHRO-VITE) PO SCH (09:50)
[2020-01-20] MEDS: METOPROLOL TARTRATE 50 MG TABLET (FP) PO SCH ×2 (09:50→21:50)
[2020-01-20] MEDS: APIXABAN 2.5 MG TABLET PO SCH ×2 (09:50→21:48)
[2020-01-20] MEDS: ALLOPURINOL 100 MG TABLET (FP) PO SCH (09:50)
[2020-01-20] MEDS: BUDESONIDE/FORMETEROL FUMARATE 160/4.5 mcg INHALER IH SCH ×2 (09:51→21:50)
[2020-01-20] MEDS: FLUTICASONE PROP 0.05% 16 GM NASAL SPRAY NS SCH (09:51)
[2020-01-20] MEDS ORDERED: SODIUM CHLORIDE 250 ML IV PRN (10:09)
[2020-01-20] MEDS: ACETAMINOPHEN 325 MG TABLET (FP) PO PRN (10:30)
[2020-01-20] MEDS ORDERED: PT OWN MED DRAWER 7, Y5N ONE (17:16)
[2020-01-20] MEDS: MAVYRET PO SCH (17:34)
[2020-01-21 08:18] LABS: BASO % 0.6 % (0-2.0); EOS % 1.2 % (0-4.5); HEMATOCRIT 38.6 % (35.4-49); HEMOGLOBIN 13.1 GM/dL (11.7-16.9); LYMPH % 30.1 % (8-40); MCH 30.9 pg (25.7-33.7); MCHC 33.8 g/dl (32.0-35.9); MEAN CELL VOLUME 91.3 fl (80-96); MEAN PLT VOLUME 10.9 fl (7.5-11.1); MONO % 21.4 % (3.8-10.2); NEUT % 46.7 % (42.8-82.8); PLATELET COUNT 50 K/MM3 (134-434); RBC 4.23 M/mm3 (4.00-5.60); RDW 14.4 % (11.9-15.9); WHITE BLOOD COUNT 4.5 K/mm3 (4.0-10.0)
[2020-01-21 09:33] LABS: BLOOD UREA NITROGEN 52.5 mg/dL (7-18)
[2020-01-21 09:36] LABS: CREATININE 3.9 mg/dL (0.55-1.3)
[2020-01-21 09:53] LABS: ANISOCYTOSIS 1+; MACROCYTOSIS 0; PLATELET ESTIMATE DECREASED
[2020-01-21] MEDS ORDERED: PT OWN MED DRAWER 7, Y5N ONE (10:19)
[2020-01-21] MEDS: APIXABAN 2.5 MG TABLET PO SCH ×2 (10:31→22:17)
[2020-01-21] MEDS: ALLOPURINOL 100 MG TABLET (FP) PO SCH (10:32)
[2020-01-21] MEDS: METOPROLOL TARTRATE 50 MG TABLET (FP) PO SCH ×2 (10:32→22:20)
[2020-01-21] MEDS: VITAMIN B COMP W-C 1 EA TABLET (NEPHRO-VITE) PO SCH (10:32)
[2020-01-21] MEDS: FLUTICASONE PROP 0.05% 16 GM NASAL SPRAY NS SCH (10:33)
[2020-01-21] MEDS: BUDESONIDE/FORMETEROL FUMARATE 160/4.5 mcg INHALER IH SCH ×2 (10:33→22:18)
[2020-01-21] MEDS: MAVYRET PO SCH (17:41)
[2020-01-22] MEDS: VITAMIN B COMP W-C 1 EA TABLET (NEPHRO-VITE) PO SCH (10:57)
[2020-01-22] MEDS: METOPROLOL TARTRATE 50 MG TABLET (FP) PO SCH ×2 (10:57→21:46)
[2020-01-22] MEDS: ALLOPURINOL 100 MG TABLET (FP) PO SCH (10:57)
[2020-01-22] MEDS: APIXABAN 2.5 MG TABLET PO SCH ×2 (10:57→21:47)
[2020-01-22] MEDS: FLUTICASONE PROP 0.05% 16 GM NASAL SPRAY NS SCH (11:00)
[2020-01-22] MEDS: BUDESONIDE/FORMETEROL FUMARATE 160/4.5 mcg INHALER IH SCH ×2 (11:00→21:47)
[2020-01-22] MEDS ORDERED: PT OWN MED DRAWER 7, Y5N ONE (16:59)
[2020-01-22] MEDS: MAVYRET PO SCH (17:14)
[2020-01-23] MEDS ORDERED: SODIUM CHLORIDE 250 ML IV PRN (11:07)
[2020-01-23] MEDS: ALLOPURINOL 100 MG TABLET (FP) PO SCH (11:41)
[2020-01-23] MEDS: APIXABAN 2.5 MG TABLET PO SCH (11:41)
[2020-01-23] MEDS: VITAMIN B COMP W-C 1 EA TABLET (NEPHRO-VITE) PO SCH (11:41)
[2020-01-23] MEDS: ACETAMINOPHEN 325 MG TABLET (FP) PO PRN (11:42)
[2020-01-23] MEDS: METOPROLOL TARTRATE 50 MG TABLET (FP) PO SCH (11:42)
[2020-01-23] MEDS: FLUTICASONE PROP 0.05% 16 GM NASAL SPRAY NS SCH (11:42)
[2020-01-23] MEDS: BUDESONIDE/FORMETEROL FUMARATE 160/4.5 mcg INHALER IH SCH (11:42)
[2020-01-23 14:34] VITALS: TEMP 97.8
[2020-01-23 17:25] VITALS: BP 117/64; PULSE 64
[2020-01-30 01:06] LABS: HEP B CORE AB, TOT Negative (Negative)
== END 2020-01-23 17:23 | disposition home health service (06) | DRG 177 ==
LOC: JER 22:55 → JERBED 01-17 00:56 → J8W 01-17 09:49
PROVIDERS: ADMIT Specialist; ATTEND Specialist
DX: U07.1 COVID-19 (principal); N18.6 End stage renal disease; N39.0 Urinary tract infection, site not specified; I13.2 Hypertensive heart and chronic kidney disease with heart failure and with stage 5 chronic kidney disease, or end stage renal disease; I48.20 Chronic atrial fibrillation, unspecified; Z99.2 Dependence on renal dialysis; I50.9 Heart failure, unspecified; J44.9 Chronic obstructive pulmonary disease, unspecified; I48.91 Unspecified atrial fibrillation; D69.6 Thrombocytopenia, unspecified; I25.10 Atherosclerotic heart disease of native coronary artery without angina pectoris; D63.1 Anemia in chronic kidney disease; N25.0 Renal osteodystrophy; E78.5 Hyperlipidemia, unspecified; D72.819 Decreased white blood cell count, unspecified
CPT/HCPCS: 36415; 70450-TC; 71045-TC-FY; 80048; 80053; 81003; 82550; 82728; 83615; 84100; 84484; 85025; 85027; 85379; 85610; 85730; 86140; 86704; 86706; 86707; 86708; 86709; 86803; 87086; 87340; 93005; 93010; 97116-GP; 99285-25; C9803; J1100; U0003

== ENCOUNTER 2020-06-11 18:01 | Emergency (ER) | payer OTHER, BC ==
[2020-06-11 18:15] VITALS: BP 117/57; PULSE 73; TEMP 97; BMI 25.8
[2020-06-11] MEDS ORDERED: DIPHTH,PERTUSS(ACELL),TET 0.5 ML DISP.SYRIN IM ONE ×2 (19:28→19:48)
== END 2020-06-11 20:35 | disposition home or self-care (01) ==
LOC: JER 18:01
PROC: 3E0234Z Introduction of Serum, Toxoid and Vaccine into Muscle, Percutaneous Approach (ICD-10-PCS; principal; 2020-06-11)
DX: S92.911A Unspecified fracture of right toe(s), initial encounter for closed fracture (principal)
CPT/HCPCS: 73660-TC-FY; 90715; 99284-25